=== PATIENT | male | born 1940 | race Caucasian/White ===

== ENCOUNTER → 2022-02-04 13:48 | Outpatient (BNVA) | payer MEDICARE, OTHER, SELFPAY | PROVIDERS: PCP Internal Medicine; Visit Provider Orthopaedic Surgery | DX: M72.0 Palmar fascial fibromatosis [Dupuytren] (principal) | CPT/HCPCS: 99202 ==

== ENCOUNTER 2023-07-27 15:43 | Outpatient (REF) | payer MEDICARE, OTHER, SELFPAY ==
--- NOTE | ~2023-07-27 | XR_ITS ---
EXAMINATION: XR CHEST CLINICAL INFORMATION: Tachycardia. COMPARISON: None available. TECHNIQUE: 2 views of the chest were obtained. FINDINGS: There is no gross pneumothorax. Lung volumes are low. Heart size is normal. Degenerative changes in the thoracic spine. No pleural effusion. Mild bibasilar streaky opacities, left greater than right, possibly representing atelectasis/scar versus pneumonia. Possible 2.58 cm right apical pulmonary nodule. CT scan of the chest recommended for further evaluation. XR/XR chest 2V IMPRESSION: 1. Mild bibasilar streaky opacities, left greater than right, possibly representing atelectasis/scar versus pneumonia. 2. Possible 2.5 cm right apical pulmonary nodule. CT scan of the chest recommended for further evaluation. This study was presented today July 2023 at 10:10 AM for interpretation. PSA staff will provide results to referring provider at this time.
[2023-07-27 15:55] LABS: MANUAL DIFF FLAG NO
[2023-07-27 16:20] LABS: Basophils Percent Auto 0.1 % (0-2); Eosinophils Absolute Auto 0.1 X10*3/uL (0.0-0.4); Eosinophils Percent Auto 0.8 % (0-4); Hematocrit 49.2 % (42.0-52.0); Hemoglobin 16.7 g/dl (14.0-18.0); Imm Gran Pct Auto 0.7 % (0.0-0.4); Lymphocytes Absolute Auto 1.9 X10*3/uL (1.2-4.9); Lymphocytes Percent Auto 14.2 % (20-40); Mean Corpuscular HGB Conc 33.9 g/dl (31.0-36.0); Mean Corpuscular Hemoglobin 30.8 pg (27.0-33.0); Mean Corpuscular Volume 90.6 fL (80.0-98.0); Mean Platelet Volume 8.6 fL (9.4-12.4); Monocytes Percent Auto 7.3 % (2-11); Neutrophils Absolute Auto 10.3 x10*3/uL (2.0-8.3); Neutrophils Percent Auto 76.9 % (45-73); Platelet Count 199 X10*3/uL (160-400); Red Blood Count 5.43 X10*6/uL (4.60-5.80); Red Cell Distribution Width 12.9 % (11.0-16.0); White Blood Count 13.4 X10*3/uL (4.8-10.8)
[2023-07-27 16:38] LABS: B Type Natriuretic Peptide 29 pg/mL (<100)
[2023-07-27 16:57] LABS: Alanine Aminotransferase 8 U/L (0-40); Albumin Level 4.4 g/dL (3.5-5.0); Alkaline Phosphatase 71 U/L (39-117); Anion Gap 15 (12-20); Aspartate Amino Transferase 22 U/L (5-37); Bilirubin Total 0.4 mg/dL (0.0-1.0); Blood Urea Nitrogen 15 mg/dL (9-16); C Reactive Protein 1.54 mg/dL (< or = 0.50); Calcium 10.4 mg/dL (8.4-10.2); Carbon Dioxide 27 mmol/L (22-29); Chloride 104 mmol/L (96-108); Estimated Glomerular Filt Rate 55; Glucose Random 112 mg/dL (60-115); Potassium 4.3 mmol/L (3.3-5.1); Sodium 142 mmol/L (135-145); Total Protein 7.6 g/dL (6.5-8.0)
[2023-07-27 17:11] LABS: Free T4 (Free Thyroxine) 1.05 ng/dL (0.71-1.85); Thyroid Stimulating Hormone 1.08 uIU/mL (0.32-4.0)
[2023-07-27 17:45] LABS: Prostate Specific Antigen 105.51 ng/mL (<0.05-4.0)
== END 2023-07-27 15:44 | disposition home or self-care (01) ==
LOC: HO.LAB 15:43
PROVIDERS: PCP Internal Medicine; Visit Provider Internal Medicine
DX: I10 Essential (primary) hypertension (principal); N40.0 Benign prostatic hyperplasia without lower urinary tract symptoms; R00.0 Tachycardia, unspecified; Z12.5 Encounter for screening for malignant neoplasm of prostate
CPT/HCPCS: 36415; 71046; 80053; 82378; 83880; 84153; 84439; 84443; 85025; 86140

== ENCOUNTER 2023-08-04 13:59 | Outpatient (AMB) | payer MEDICARE, OTHER, SELFPAY ==
--- NOTE | 2023-08-04 14:01 | MHC.OFFVIS ---
Intake Intake Visit Reasons: Elevated PSA Intake Note: New Patient presents for initial visit for elevated psa (psa ) Urology Medications: none Blood Thinner: none Resistor Coater Required: No Accompanied by: Self / Same As Patient Allergies amoxicillin Allergy (Verified 08/04/23 14:38) tongue swelling, facial swelling Medication List - Last Reconciled 08/04/23 by BRIDGET SchraderP- bicalutamide 50 mg PO DAILY 30 days levofloxacin 500 mg PO daily 3 days HPI HPI Comments History of Present Illness Details Harshad is a very pleasant 83-year-old male patient of Dr. Ly. He presents to the office today as a new patient for an elevated PSA. In review of patient's chart it appears PSA 08/18 106.0. He reports not having followed-up with his PCP over the last few years during [facility]. He also discusses having taking care of his with since now passed in September who had dementia. In discussion with the patient today he reports noting dysuria and difficulty with bowel movements. He otherwise denies urinary urgency, urinary frequency, incontinence, nocturia, hematuria, foul smelling urine,changes to urinary stream, flank pain, fever, and or chills. He is happy with his current voiding parameters. Discussed at length potential causes for elevated PSA. Discussed undergoing prostate biopsy as well as bone scan for further assessment evaluation. Discussed risks and benefits of these interventions. Patient reports having started bicalutamide on Wednesday with his PCP. In office urinalysis results reviewed with the patient today. EZEKIEL offered however patient reports having had EZEKIEL with PCP at which time EZEKIEL was noted to be abnormal. He otherwise offers no issues or concerns at this time. 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 Review of Systems Const All systems reviewed & are unremarkable except as noted in HPI and below Physical Exam Const General: cooperative, healthy appearing, comfortable, no acute distress, well developed, alert and awake Nutritional Appearance: average body habitus Orientation/consciousness: patient oriented x3 Limitations: no limitations HEENT Head: Yes normal to inspection, Yes normocephalic and Yes atraumatic Ears: hearing grossly normal bilaterally Eyes General: appearance normal, both eyes and all related structures Neck Neck: Yes normal visual inspection and Yes trachea midline Chest Chest palpation & inspection: normal inspection of the chest Resp Effort & Inspection: normal respiratory effort and able to speak in complete sentences Cardio Rate: regular rate GI Inspection: Yes normal to inspection General: Yes no CVA tenderness Back/Spine/Pelvis Back: no CVA tenderness Skin General skin exam: no rashes or lesions noted Neuro General: patient oriented x3 Extrem General: Yes normal to inspection Psych Appearance: grossly normal and well kempt Mental Status: mental status grossly normal Speech and movement: Normal speech and movement present and Clear speech present Affect: normal affect Attitude: cooperative Thought process: Normal thought process present Thought content: Normal thought content present Insight: Fair insight present (Psych) Judgement: Fair judgement present (Psych) Results AMB Urinalysis, Automated UA Leukoctes 0 Tracey/uL Last Edit by [employer] on 08/04/23 14:23 UA Nitrite Negative Last Edit by [employer] on 08/04/23 14:23 UA Urobilinogen 0.2 mg/dL Last Edit by [employer] on 08/04/23 14:23 UA Protein 15 mg/dL Last Edit by [employer] on 08/04/23 14:23 UA pH 5.5 Last Edit by [employer] on 08/04/23 14:23 UA Blood 10 Avelino/uL Last Edit by [employer] on 08/04/23 14:23 UA Specific Keene 1.020 Last Edit by [employer] on 08/04/23 14:23 UA Ketone Negative Last Edit by [employer] on 08/04/23 14:23 UA Bilirubin 0 mg/dL Last Edit by [employer] on 08/04/23 14:23 UA Glucose 0 mg/dL Last Edit by [employer] on 08/04/23 14:23 Results Reviewed Results Reviewed: Laboratory Last Values Urine pH (Auto) 5.5 08/04/23 14:03 Specific Keene (Auto) 1.020 08/04/23 14:03 Urine Protein (Auto) 15 mg/dL 08/04/23 14:03 Glucose (UA)(Auto) 0 mg/dL 08/04/23 14:03 Urine Ketones (Auto) Negative 08/04/23 14:03 Urine Blood (Auto) 10 Avelino/uL 08/04/23 14:03 Urine Nitrite (Auto) Negative 08/04/23 14:03 Urine Bilirubin (Auto) 0 mg/dL 08/04/23 14:03 Urine Urobilinogen (Auto) 0.2 mg/dL 08/04/23 14:03 Leukocyte Esterase (Auto) 0 Tracey/uL 08/04/23 14:03 Assessment & Plan Assessment & Plan (1) Elevated PSA: Code(s): R97.20 - Elevated prostate specific antigen [PSA] (2) Abnormal digital rectal exam: Code(s): R68.89 - Other general symptoms and signs Plan In office urinalysis results reviewed with the patient today; as noted above. Recent PSA results reviewed with the patient today; as noted above. Discussed at length potential causes for elevated PSA. Discussed obtaining bone scan for further assessment evaluation. Discussed risks and benefits of prostate biopsy at length. Will schedule for prostate biopsy as discussed. Continue bicalutamide as prescribed Prescription provided for antibiotic; educated on specific instructions of medication of taking antibiotics day before, day of, and day after surgical procedure (prostate biopsy) Call to patient's daughter Lori at [phone] as requested by patient will await call back to discuss plan of care Follow-up status post Dr. Mi's orders; or sooner with any issues, concerns, and or questions. Orders: Orders AMB Urinalysis Automated Today Z13.9 - Encounter for screening, unspecified NM bone scan whole body Today C61 - Malignant neoplasm of prostate, C79.51 - Secondary malignant neoplasm of bone Medications: New levofloxacin take 1 tablet day before procedure, 1 tablet day of procedure and 1 tablet day after procedure 500 mg PO daily 3 days 3 tabs 0RF Patient Instructions: The patient had an opportunity to ask questions regarding the treatment plan. All questions were answered. Physical exam, labs, and imaging were discussed and reviewed in detail. As well as risks, benefits, and discussion of treatment choices. No major barriers to understanding were identified. The patient expressed understanding and agreement with the above treatment plan. The patient was made aware they should contact our office by phone for worsening of their current condition, the appearance of new symptoms, or with any questions or concerns. Compliance is encouraged with any medications and follow up testing that is ordered. It is a privilege to be allowed the opportunity to participate in? your urological care.? Again, if you have any questions or concerns If you have any questions or concerns please do not hesitate to contact me. The office is [phone]. This note is constructed using voice recognition software. While every effort has been made to ensure accuracy medical transcription errors may have been included. Yours sincerely, CHRIS Schrader Coding Level of Care Code New Pt Level 4 (77105) Diagnoses Elevated PSA R97.20 Abnormal digital rectal exam R68.89
== END 2023-08-04 14:40 | disposition home or self-care (01) ==
PROVIDERS: PCP Internal Medicine; Visit Provider Nurse Practitioner Family
DX: R97.20 Elevated prostate specific antigen [PSA] (principal); R68.89 Other general symptoms and signs
CPT/HCPCS: 99204

== ENCOUNTER → 2023-08-04 13:59 | Outpatient (BNVA) | payer MEDICARE, OTHER, SELFPAY | PROVIDERS: PCP Internal Medicine; Visit Provider Nurse Practitioner Family | DX: R97.20 Elevated prostate specific antigen [PSA] (principal); R68.89 Other general symptoms and signs | CPT/HCPCS: 81003; 99202 ==

== ENCOUNTER 2023-08-12 07:29 | Outpatient (REF) | payer MEDICARE, OTHER, SELFPAY ==
[2023-08-12 08:02] VITALS: BMI 24.3
[2023-08-12 08:04] VITALS: BP 165/109; PULSE 108; RESP 16; TEMP 36.4; O2SAT 95
--- NOTE | 2023-08-12 08:27 | W.PM.OPN ---
Operative Note Operative Note Date of Service: 08/12/23 Narrative: Preoperative diagnosis: Elevated PSA Postoperative diagnosis: Elevated PSA PSA 100 Procedure: 1. transrectal ultrasound measurement of prostate Surgeon: Dr. Carlos Mi Anesthetic: Local Indications for procedure: Elevated PSA Procedure: After informed consent was verified, the patient was brought into the procedure area and lay left-hand side down on the table. Patient identity confirmed. Perioperative antibiotics confirmed. Safety pause time out performed. EZEKIEL performed to dilate rectal sphincter Iodine 10cc with Gel was placed per rectum Ultrasound probe was placed per rectum Unable to tolerate US probe Plan for repeat biopsy in OR with sedation
[2023-08-12 08:40] VITALS: BP 190/110; PULSE 102; RESP 16; O2SAT 97
== END 2023-08-12 07:30 | disposition home or self-care (01) ==
LOC: HO.MS 07:29
PROVIDERS: PCP Internal Medicine; Visit Provider Urology
DX: K64.9 Unspecified hemorrhoids (principal)
CPT/HCPCS: 99202

== ENCOUNTER → 2023-08-12 07:29 | Outpatient (BNV) | payer MEDICARE, OTHER, SELFPAY | PROVIDERS: PCP Internal Medicine; Visit Provider Urology | DX: R97.20 Elevated prostate specific antigen [PSA] (principal) | CPT/HCPCS: 76942 ==

== ENCOUNTER 2023-08-12 15:25 | Outpatient (AMB) | payer MEDICARE, OTHER, SELFPAY ==
--- NOTE | 2023-08-12 15:28 | MHC.OFFVIS ---
Intake Vital Signs 08/12/23 15:35 Height 5 ft 8 in Weight 156 lb BMI 23.7 BP 198/100 H Blood Pressure Location Rt brachial Position Sitting Pulse 78 Intake Visit Reasons: Thrombosed hemorrhoid Intake Note: Patient here today as an urgent appointment due to thrombosed hemorrhoid. Patient c/o difficulty with bm. Hemorrhoid present since early June. Sports Medicine Trainer Required: No Accompanied by: Daughter Lori Clark amoxicillin Allergy (Verified 08/12/23 15:29) tongue swelling, facial swelling Medication List - Last Reconciled 08/12/23 by Kashif Torrez MD bicalutamide 50 mg PO DAILY 30 days levofloxacin 500 mg PO daily 3 days HPI Thrombosed hemorrhoid HPI Details 83-year-old male referred by his primary care physician for question of thrombosed hemorrhoids. He says that about a month ago, he had pain in his anus what he thought was ?swelling?. He assumed that this was from his hemorrhoids. He describes some occasional problems with straining with bowel movements He denies any bleeding. He was scheduled to have a prostate biopsy today. However, he was unable to tolerate this. He is scheduled to have biopsy under anesthesia in 2 weeks. He was told that he also had hemorrhoids that appeared swollen so was referred to me He is able to sit down comfortably. He currently denies significant pain. He has never had any colonoscopy in the past. According to his daughter, he has refused this and he actually did not see any primary care physician regularly in the past. 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 Review of Systems Const Denies chills and Denies fever(s) Card Denies chest pain, Denies dyspnea and Denies dyspnea on exertion Resp Denies cough, Denies dyspnea and Denies dyspnea on exertion GI Denies hematochezia, Denies change in bowel habits and Reports constipation Denies hematuria and Denies difficulty urinating Musc Denies back pain and Denies limited range of motion Neuro Denies focal weakness and Denies convulsions Psych Denies depression and Denies mood swings Physical Exam Vital Signs: Last Vital Signs Pulse 78 08/12/23 15:35 BP 198/100 H 08/12/23 15:35 BMI result Body Mass Index 23.7 Const General: comfortable and no acute distress Orientation/consciousness: patient oriented x3 Neck Neck: Yes no lymphadenopathy Resp Auscultation: clear to auscultation bilaterally Cardio Rhythm: regular rhythm GI Other: Rectal exam shows small external hemorrhoids left and right, nonthrombosed, minimally swollen, nontender; did not want any anoscopy and digital exam at this time Palpation (GI): Soft to palpation, nontender and no guarding Neuro General: patient oriented x3 Assessment & Plan Assessment & Plan (1) Hemorrhoids: Code(s): K64.9 - Unspecified hemorrhoids Plan: He describes having a flare up of hemorrhoidal swelling a month ago. He also had an attempted prostate biopsy today which he could not tolerate. He was referred to me because of his hemorrhoids. He also noticed some blood on wiping this morning after he attempted prostate biopsy Current exam does reveal mild inflammation of his hemorrhoids. I did not do an anoscopy as he did not want this done. He is able to sit down comfortably and appears to not have any significant pain. I am going to send him a prescription for Metamucil. I told him and his daughter that if he has significant issues down the line with this hemorrhoids, I would him to follow-up so I can do an anoscopy then. He seemed to be comfortable with the plan. He is okay to proceed with his prostate biopsy in 2 weeks. Medications: New psyllium husk (Metamucil) mix into at least 8 oz of water or juice before administering 1 tbsp PO DAILY 660 grams 2RF Coding Level of Care Code New Pt Level 3 (34836) Diagnoses Hemorrhoids K64.9
[2023-08-12 15:35] VITALS: BP 198/100; PULSE 78; BMI 23.7
== END 2023-08-12 15:49 | disposition home or self-care (01) ==
PROVIDERS: PCP Internal Medicine; Visit Provider Surgery
DX: K64.9 Unspecified hemorrhoids (principal)
CPT/HCPCS: 99203

== ENCOUNTER → 2023-08-19 10:43 | Outpatient (REF) | payer MEDICARE, OTHER, SELFPAY ==
--- NOTE | ~2023-08-19 | CT_ITS ---
EXAMINATION: CT CHEST WITHOUT CONTRAST CLINICAL INFORMATION: 83-year-old male with pulmonary nodule and history of prostate carcinoma COMPARISON: Chest radiograph from 07/27/2023 TECHNIQUE: Multidetector volumetric CT imaging of the chest was done. Axial MIP volume rendering provided. Sagittal and coronal reformatted images were obtained. This CT examination was performed using dose optimization techniques as appropriate, variously including the following: *Automated exposure control *Adjustment of mA and/or kV according to patient size (this includes techniques or standardized protocols for targeted exams where dose is matched to indication/reason for exam; i.e. extremities or head) *Use of iterative reconstruction technique DLP: 08/13/1989 mGy-cm FINDINGS: MED AIDE: Unremarkable LUNGS: The lungs are clear with no evidence of inflammation or nodules. Basilar atelectasis present. MEDIASTINUM: There is no mediastinal or hilar lymphadenopathy seen. Thyroid gland is unremarkable. Thoracic aorta is ectatic but not aneurysmally dilated. There is no cardiomegaly. No pericardial effusion seen. CORONARY ARTERY CALCIFICATION: None visualized on this study. PLEURA: There is no pleural effusion. No pleural mass or thickening. AXILLA: No lymphadenopathy. UPPER ABDOMEN: There is moderate size hiatal hernia. There is tiny low-attenuation lesion in the left lobe of the liver, too small to characterize but most likely cyst OSSEOUS STRUCTURES: There are no lytic or blastic lesions seen. Mild degenerative changes seen in the lower cervical spine and thoracic spine. CT/CT chest wo IV con IMPRESSION: 1. No lung nodules seen. 2. Moderate size hiatal hernia. 3. Tiny low-attenuation lesion in the left lobe of the liver, too small to characterize but most likely cyst. Fleischner guidelines were followed.
--- NOTE | ~2023-08-19 | NM_ITS ---
EXAMINATION: NM BONE SCAN OF THE WHOLE BODY CLINICAL INFORMATION: A 83-year-old male with pulmonary nodule and history of prostate carcinoma. COMPARISON: CT of the chest done on 08/19/2023. TECHNIQUE: Multiple gamma scintillation camera images of the whole body were performed 2.5 hours following the intravenous administration of 26 mCi Tc-99m MDP. The radiotracer was injected through left antecubital superficial vein without complications. FINDINGS: In the head, no suspicious focal lesion. In the thoracic cage and upper extremities, heterogeneous increased tracer avidity is noted within bilateral ribs, highly suspicious for metastatic disease. Asymmetric increased tracer avidity involving the left second distal metacarpal likely represent posttraumatic and/or arthritic changes. Asymmetric focal increased tracer avidity is noted at mid to proximal diaphysis of the right humerus. In the spine, heterogeneous tracer distribution is noted throughout the entire spine including the costotransverse junctions without any discrete focal tracer avid disease. The findings are suspicious for disease involvement especially given the findings within the ribs. In the pelvis, heterogeneous tracer avidity around both SI joints and left hemisacrum and both ischium, also suspicious for disease involvement. In the lower extremities, focal increased tracer avidity at left and to a lesser extent right femoral diaphysis highly suspicious for metastatic involvement. No other definite bony abnormalities are noted. The urinary bladder and faint visualization of both kidneys are noted. Specific note is made of prominent distal left ureter, suspicious for obstruction or physiologic variation. NM/NM bone scan whole body IMPRESSION: Abnormal study showing features highly suspicious for osseous metastasis. However, there is no definite correlate identified when compared to the recent CT of the chest done on 08/19/2023. The patient is at risk for development of pathological fracture involving both femur and right humerus.
== END ==
LOC: HO.NUCMED 10:43
PROVIDERS: PCP Internal Medicine; Visit Provider Nurse Practitioner Family
DX: C61 Malignant neoplasm of prostate (principal); C79.51 Secondary malignant neoplasm of bone; R91.8 Other nonspecific abnormal finding of lung field
CPT/HCPCS: 71250; 78306; A9503

== ENCOUNTER 2023-08-23 09:47 | Day surgery (SDC) | payer MEDICARE, OTHER, SELFPAY ==
[2023-08-19 13:38] VITALS: BMI 23.7
--- NOTE | 2023-08-20 12:19 | P.CONAN_ITS ---
Documented by User: Sunita Ray NP 08/20/23 12:21 HPI - Anesthesia Eval Consult details Narrative: 83yo M for Prostate Needle Biopsy PMFSH Active Problems Active Problems: All Active Problems (Updated 08/12/23 @ 15:58 by Kashif Torrez MD) Abnormal digital rectal exam (Acute) Dupuytren's contracture of right hand (Acute) Dupuytren's contracture of left hand (Acute) Hemorrhoids (Acute) Elevated PSA (Acute) Past Medical History Medical History (Updated 08/12/23 @ 15:58 by Kashif Torrez MD) Hemorrhoids Elevated PSA Surgical History Surgical History (Updated 08/19/23 @ 12:27 by Kaylee Adkins RN) Hx of prostate biopsy Social History Social History Are you a primary daycare provider to a significant other at home: No Do you presently have visiting nurse or other home services: No Patient Tobacco Use Status: Never used Tobacco Use of substances other than those prescribed or required for medical reasons: No Have you been hit, kicked, punched, or otherwise hurt by someone within the past year? 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 Meds Allergies Allergy/AdvReac Type Severity Reaction Status Date / Time amoxicillin [From Augmentin] Allergy Severe tongue/facial Verified 08/19/23 13:42 swelling clavulanic acid Allergy Severe tongue/facial Verified 08/19/23 13:42 [From Augmentin] swelling Exam Height,Weight and Vital Signs: Height 5 ft 8 in Weight 70.76 kg Pertinent Lab Results Pertinent Lab Results: Laboratory Tests 07/27/23 15:54 WBC 13.4 H Hgb 16.7 Hct 49.2 Plt Count 199 Sodium 142 Potassium 4.3 Chloride 104 Carbon Dioxide 27 BUN 15 Creatinine 1.25 Assessment and Plan Assessment Anesthesia Assessment: Chart Reviewed Documented by User: Denver Funes MD 08/23/23 12:40 [facility] Past Medical History Medical History (Updated 08/12/23 @ 15:58 by Kashif Torrez MD) Hemorrhoids Elevated PSA Family History Family history of problems with anesthesia: No Surgical History Surgical History (Updated 08/19/23 @ 12:27 by Kaylee Adkins RN) Hx of prostate biopsy History of Problems with Anesthesia: No Social History Social History Are you a primary daycare provider to a significant other at home: No Do you presently have visiting nurse or other home services: No Patient Tobacco Use Status: Never used Tobacco Use of substances other than those prescribed or required for medical reasons: No Have you been hit, kicked, punched, or otherwise hurt by someone within the past year? 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 Meds Allergies Allergy/AdvReac Type Severity Reaction Status Date / Time amoxicillin [From Augmentin] Allergy Severe tongue/facial Verified 08/19/23 13:42 swelling clavulanic acid Allergy Severe tongue/facial Verified 08/19/23 13:42 [From Augmentin] swelling Exam Airway Mallampati Class: II TM Dist: >3cm Neck ROM: Full Loose/Missing/Broken Teeth: No Heart: ok Lungs: ok Assessment and Plan Assessment Anesthesia Assessment: Anesthesia Plan Discussed Final Anesthetic Review Family History of Problems with Anesthesia: No History of Problems with Anesthesia: No NPO: Yes ASA Class: III Final Preanesthetic Review: No Changes in Pt Med Stat, Meds/Allgs Chart Reviewed, Consent Obtained/Reviewed and Anes Risks/Benef Reviewed Patient Risk: Intermediate Procedure Risk: Low Anesthetic Plan Anesthetic Plan: MAC: and Agree w/ Assess. and Plan Disposition: Standard PACU
[2023-08-23] VITALS (7 sets, daily range): BP systolic 135–197; BP diastolic 82–112; PULSE 93–118; RESP 16–18; TEMP 36.7–37.1; O2SAT 93–96; BMI 23.7
[2023-08-23] MEDS: Lactated Ringers 1,000 ML 100 ML IVCONT (11:33)
--- NOTE | 2023-08-23 11:59 | MHC.SHP ---
Pre-Procedural Eval Section A - 24 Hr Update-Section A only Date of Service: 08/23/23 The patient is an INPATIENT: No Changes since office visit: No Cold of Flu in the past 2 weeks, No New Medical Problems, No Changes in Medication and No Patient answered all questions The patient has been examined within 24 hours of the surgical procedure. The History & Physical has been completed within 30 days and I have reviewed it.: Yes Section B - Complete if H&P > 30 days Chief Complaint: Elevated prostate specific antigen [PSA] Details of Present Illness: Prostate biopsy Allergies: Allergies Allergy/AdvReac Type Severity Reaction Status Date / Time amoxicillin [From Augmentin] Allergy Severe tongue/facial Verified 08/19/23 13:42 swelling clavulanic acid Allergy Severe tongue/facial Verified 08/19/23 13:42 [From Augmentin] swelling Plan Diagnosis/Plan: Unchanged (Prostate biopsy under sedation) I have reviewed the history and physical and performed a pertinent physical examination on my patient. No changes have occurred unless specified. Time Spent With Patient Time: Total time managing care of this patient today ____ minutes.
[2023-08-23] MEDS: ondansetron HCL 4 MG/2 ML VIAL IVPUSH (13:33)
[2023-08-23] MEDS: Ketorolac Tromethamine 30 MG/ML VIAL IVPUSH (14:02)
--- NOTE | 2023-09-17 16:56 | W.PM.OPN ---
Operative Note Operative Note Date of Service: 08/23/23 Narrative: Preoperative diagnosis: Elevated PSA Postoperative diagnosis: Elevated PSA 105 Procedure: 1. transrectal ultrasound measurement of prostate 2. transrectal ultrasound-guided pudendal nerve block 3. transrectal ultrasound-guided prostate biopsy 12 core Surgeon: Dr. Carlos Mi Anesthetic: Local Indications for procedure: Elevated PSA 105 - hard prostate Procedure: After informed consent was verified, the patient was brought into the operating room. Sedation anesthesia was performed. Patient identity confirmed. Perioperative antibiotics confirmed. Safety pause time out performed. Patient placed in left lateral down position. EZEKIEL performed to dilate rectal sphincter - prostate felt and was rock hard throughout Iodine 10cc with Gel was placed per rectum Ultrasound probe was placed per rectum The prostate was measured in 3 dimensions Total volume equals 50 gm No cystic structures were noted No calcifications were noted at the surgical margin The prostate was otherwise homogeneous in nature - of note anterior rectal wall was thickened suggesting T3 localized expansion of prostate cancer An ultrasound-guided pudendal nerve block was performed using 10 cc of 1% lidocaine. 8 cc was placed at the base and 2 cc of the apex. A 12 core biopsy was performed with 6 cores each side. Two cores were taken at the apex, mid and base. Cores were spaced between lateral and medial. Printed instructions regarding antibiotic use and common side effects such as low-grade temperature, potential infection and bleeding were given Pathology: 12 core prostate biopsy.
== END 2023-08-23 14:51 | disposition home or self-care (01) ==
PROVIDERS: PCP Internal Medicine; Visit Provider Urology
PROC: (CPT 55700; principal; 2023-08-23 12:00)
DX: C61 Malignant neoplasm of prostate (principal); R97.20 Elevated prostate specific antigen [PSA]; Z88.1 Allergy status to other antibiotic agents; Z79.899 Other long term (current) drug therapy
CPT/HCPCS: 55700; 76942; 88305; 88341; 88342; J1885; J1956; J2405; J2704; J3010

== ENCOUNTER → 2023-08-23 09:47 | Outpatient (BNV) | payer MEDICARE, OTHER, SELFPAY | PROVIDERS: PCP Internal Medicine; Visit Provider Urology | DX: R97.20 Elevated prostate specific antigen [PSA] (principal) | CPT/HCPCS: 55700; 76942 ==

== ENCOUNTER 2023-09-01 09:22 | Outpatient (AMB) | payer MEDICARE, OTHER, SELFPAY ==
--- NOTE | 2023-09-01 09:23 | A.OFFVIS_ITS ---
Intake Intake Visit Reasons: Prostate biopsy results Intake Note: Patient presents today for a follow-up Meds- None Allergies to Antibiotic- Amoxicillin Blood Thinner- None Card Decorator Required: No Allergies amoxicillin [From Augmentin] Allergy (Severe, Verified 09/01/23 09:26) tongue/facial swelling clavulanic acid [From Augmentin] Allergy (Severe, Verified 09/01/23 09:26) tongue/facial swelling Medication List - Last Reconciled 09/01/23 by Carlos Mi MD abiraterone 1,000 mg (4 x 250 mg) PO DAILY 30 days bicalutamide 50 mg PO DAILY 30 days calcium citrate-vitamin D3 315 mg-6.25 mcg (250 unit) (Citracal + Vitamin D Maximum) 2 tabs PO BID 90 days levofloxacin 500 mg PO daily 3 days prednisone 5 mg PO BID 30 days psyllium husk (Metamucil) 1 tbsp PO DAILY sulfamethoxazole-trimethoprim 400-80 mg (Bactrim) 1 tab PO DAILY HPI HPI Comments History of Present Illness Details Harshad is a pleasant male. He is a patient of Dr. Ly. He is seen for the following urologic conditions - prostate cancer Telemedicine Evaluation 15 min Consultation DoximSumm[employer] Della Video attempted Discussed biopsy result with Harshad and his daughter Imaging confirms bony metastatic disease Initial therapy would involve combination GnRH, abiraterone, Xgeva Prostate cancer - 08/18 - high-grade, bony metastatic at diagnosis Initial PSA 08/18 - 106 Prostate TRUS biopsy volume 35 cc Histologic type: Adenocarcinoma, acinar type with focal neuroendocrine differentiation Maryanne score: 4+5=9 % of pattern 4: 80% % of pattern 5: 20% Number cores positive: 12 Total number of cores: 12 % of tissue involved: 85% of all tissue examined Periprostatic fat inv.: Not identified Seminal vesicle inv.: Not identified Perineural inv.: Present LVI: Suspicious Initial staging - 08/18 bone scan with changes through or spine, pelvis, bilateral hips consistent with metastatic disease Bone protection in metastatic prostate cancer setting (NCCN MS-75) The NCCN Guidelines Panel recommends screening and treatment for osteoporosis according to guidelines for the general population from the National Osteoporosis Foundation.666 A baseline bone mineral density study should be considered for the patients on ADT. The National Osteoporosis Foundation guidelines include: 1) calcium (1000?1200 mg daily from food and supplements) and vitamin D3 (400?1000 IU daily); and 2) additional treatment for males aged greater than or equal to 50 years with low bone mass (T-score between -1.0 and - 2.5, osteopenia) at the femoral neck, total hip, or lumbar spine by dual-energy x-ray absorptiometry (DEXA) scan and a 10-year probability of hip fracture greater than or equal to 3% A baseline DEXA scan before start of therapy and a follow-up DEXA scan after one year of therapy is recommended by the International Society for Clinical Densitometry to monitor response Denosumab (120mg) every 4 weeks (category 1, preferred) every 3 to 4 weeks is recommended for patients with CRPC and bone metastases to prevent or delay disease-associated SREs. SREs include pathologic fractures, spinal cord compression, operation, or EBRT to bone. The optimal duration of denosumab in patients with bone metastases remains unclear. Oral hygiene, baseline dental evaluation for high-risk individuals, and avoidance of invasive dental surgery during therapy are recommended to reduce the risk of ONJ. If invasive dental surgery is necessary, therapy should be deferred until the dentist confirms that the patient has healed completely from the dental procedure. Supplemental calcium and vitamin D are recommended to prevent hypocalcemia in patients receiving either denosumab or zoledronic acid. Hypocalcemia should be corrected before starting denosumab, and serum calcium mo nitoring is required for denosumab with repletion as needed. 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 Review of Systems Const All systems reviewed & are unremarkable except as noted in HPI and below Reports no additional complaints Resp Reports no additional complaints GI Reports no additional complaints Reports as per HPI Musc Reports no additional complaints Physical Exam Telemedicine evaluation Appropriate responses Regular breathing rate and rhythm HEENT Head: Yes normal to inspection Ears: hearing grossly normal bilaterally Eyes General: appearance normal, both eyes and all related structures Neck Neck: Yes normal visual inspection Chest Chest palpation & inspection: normal inspection of the chest Resp Effort & Inspection: normal respiratory effort and able to speak in complete sentences Assessment & Plan Assessment & Plan (1) Prostate cancer metastatic to bone: Code(s): C61 - Malignant neoplasm of prostate; C79.51 - Secondary malignant neoplasm of bone Plan DEXA scan Initiate GnRH, Xgeva, abiraterone Orders: Orders Prostate Specific Antigen 2 Months C61 - Malignant neoplasm of prostate, C79.51 - Secondary malignant neoplasm of bone Testosterone, Total 2 Months C61 - Malignant neoplasm of prostate, C79.51 - Secondary malignant neoplasm of bone XR DEXA axial skeleton Today C61 - Malignant neoplasm of prostate, C79.51 - Secondary malignant neoplasm of bone, M85.80 - Other specified disorders of bone density and structure, unspecified site Medications: New prednisone Take 1 tablet twice a day while on abiraterone 5 mg PO BID 60 tabs 5RF 30 days C61 - Malignant neoplasm of prostate, C79.51 - Secondary malignant neoplasm of bone calcium citrate-vitamin D3 315 mg-6.25 mcg (250 unit) (Citracal + Vitamin D Maximum) 2 tabs PO BID 360 tabs 3RF 90 days C61 - Malignant neoplasm of prostate, C79.51 - Secondary malignant neoplasm of bone abiraterone must be taken on empty stomach, at least 1 hr before or 2 hrs after a meal/food 1,000 mg (4 x 250 mg) PO DAILY 120 tabs 5RF 30 days C61 - Malignant neoplasm of prostate, C79.51 - Secondary malignant neoplasm of bone, R97.21 - Rising PSA following treatment for malignant neoplasm of prostate Patient Instructions: Imaging studies, laboratory and physical exam results were discussed and reviewed in detail. No major barriers to patient understanding were identified. An opportunity to ask questions regarding the treatment plan was provided. All questions were answered. The patient expressed understanding and agreement with the above treatment plan. The patient is aware they should contact our office by phone for worsening of their current condition or the appearance of new urologic symptoms. Compliance is encouraged with any medications and followup testing that is ordered. It is a privilege to participate in the urologic care of your patient. If you have any questions or concerns regarding treatment for the above conditions, or other urologic issues, please do not hesitate to contact me. The office telephon e contact is [phone]. This note is constructed using voice recognition software. While every effort has been made to ensure accuracy technology professional errors may have been included. Yours sincerely, Dr Carlos Mi MD, [facility] - Urology Providers of Expert, Compassionate Care for the Genitourinary System Telehealth Telehealth Location of provider rendering services: practice address Location of patient: address on file Patient Identification confirmed using: Name, : Yes Telehealth method: video Patient verbally consented to treatment: Yes Patient verbally consented to billing insurance company: Yes Patient informed of any privacy concerns related to visit: Yes Coding Level of Care Code Tele Est Pt Level 4 (22522) Diagnoses Prostate cancer metastatic to bone C61; C79.51
== END 2023-09-01 10:22 | disposition home or self-care (01) ==
LOC: HO.HUSH 09:22
PROVIDERS: PCP Internal Medicine; Visit Provider Urology
DX: C61 Malignant neoplasm of prostate (principal); C79.51 Secondary malignant neoplasm of bone
CPT/HCPCS: 99214

== ENCOUNTER → 2023-09-01 09:22 | Outpatient (BNVA) | payer MEDICARE, SELFPAY | PROVIDERS: PCP Internal Medicine; Visit Provider Urology ==

== ENCOUNTER → 2023-09-07 08:33 | Outpatient (BNV) | payer MEDICARE, OTHER, SELFPAY | PROVIDERS: PCP Internal Medicine; Visit Provider Internal Medicine Medical Oncology | DX: C61 Malignant neoplasm of prostate (principal); C79.51 Secondary malignant neoplasm of bone | CPT/HCPCS: 99204; 99213; 99214 ==

== ENCOUNTER 2023-09-07 09:38 | Outpatient (AMB) | payer MEDICARE, OTHER, SELFPAY ==
--- NOTE | 2023-09-07 09:41 | AM.OFFVISNUR ---
Intake Intake Visit Reasons: GnRH/Xgeva Allergies amoxicillin [From Augmentin] Allergy (Severe, Verified 09/07/23 08:58) tongue/facial swelling clavulanic acid [From Augmentin] Allergy (Severe, Verified 09/07/23 08:58) tongue/facial swelling Office Meds Xgeva 120 mg/1.7 mL (70 mg/mL) subcutaneous solution Performing Provider: Carlos Mi MD Performing Location: [facility] Administered by: Alexy Barrera LPN on 09/07/23 09:41 Dose Route Admin Location Dispensed Lot Number Expiration Date [facility] Equipment Scheduler 120 mg subcut left arm 1.7 mL [id number] 11/22/25 82761-432-56 [employer] Eligard (6 month) 45 mg (6 month) subcutaneous syringe Performing Provider: Carlos Mi MD Performing Location: [facility] Administered by: Alexy Barrera LPN on 09/07/23 09:41 Dose Route Admin Location Dispensed Lot Number Expiration Date [facility] Equipment Scheduler 45 mg subcut right arm 45 mg [id number] 08/26/24 19738-353-26 [employer]. Coding Assessment & Plan Assessment & Plan Orders: Orders AMB Denosumab Injection Practice Supplied Today C61 - Malignant neoplasm of prostate, C79.51 - Secondary malignant neoplasm of bone AMB Leuprolide Injection - Practice Supplied Today C61 - Malignant neoplasm of prostate, C79.51 - Secondary malignant neoplasm of bone
== END 2023-09-07 10:07 | disposition home or self-care (01) ==
PROVIDERS: PCP Internal Medicine; Visit Provider Urology
DX: C61 Malignant neoplasm of prostate (principal); C79.51 Secondary malignant neoplasm of bone

== ENCOUNTER → 2023-09-07 09:38 | Outpatient (BNVA) | payer MEDICARE, OTHER, SELFPAY | PROVIDERS: PCP Internal Medicine; Visit Provider Urology | DX: C61 Malignant neoplasm of prostate (principal); C79.51 Secondary malignant neoplasm of bone | CPT/HCPCS: 96372; 96402; J0897; J9217 ==

== ENCOUNTER 2023-09-08 10:18 | Outpatient (REF) | payer MEDICARE, OTHER, SELFPAY ==
--- NOTE | ~2023-09-08 | XR_ITS ---
EXAMINATION: XR FEMUR, BILATERAL CLINICAL INFORMATION: Nuclear medicine bone scan from 08/20/2023 COMPARISON: None available. TECHNIQUE: 4 views of each femur FINDINGS: RIGHT: No acute visible fracture or dislocation. No large lytic or blastic lesions are noted. Degenerative arthropathy of the right femoral acetabular joint. Multicompartment arthritic changes of the right knee. Joint space alignment are otherwise maintained. Soft tissues are unremarkable. Atherosclerotic calcification is are visualized. LEFT: No acute visible fracture or dislocation. No large lytic or blastic lesions are noted. Degenerative arthropathy of the left femoral acetabular joint. Multicompartment arthritic changes of the left knee. Joint space alignment are otherwise maintained. Soft tissues are unremarkable. Atherosclerotic calcifications are visualized. XR/XR femur RT 2V IMPRESSION: 1. No acute visible fracture or dislocation. 2. 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
--- NOTE | ~2023-09-08 | XR_ITS ---
EXAMINATION: XR HUMERUS, RIGHT CLINICAL INFORMATION: Bone metastasis COMPARISON: None available. TECHNIQUE: AP and lateral views of the right humerus. FINDINGS: No acute visible fracture or dislocation. Degenerative arthropathy of the right shoulder and elbow. Joint space alignment otherwise maintained. Soft tissues are unremarkable. XR/XR humerus RT IMPRESSION: 1. No acute visible fracture or dislocation. 2. Degenerative arthropathy of the right shoulder and elbow.
--- NOTE | ~2023-09-08 | XR_ITS ---
EXAMINATION: XR FEMUR, BILATERAL CLINICAL INFORMATION: Nuclear medicine bone scan from 08/20/2023 COMPARISON: None available. TECHNIQUE: 4 views of each femur FINDINGS: RIGHT: No acute visible fracture or dislocation. No large lytic or blastic lesions are noted. Degenerative arthropathy of the right femoral acetabular joint. Multicompartment arthritic changes of the right knee. Joint space alignment are otherwise maintained. Soft tissues are unremarkable. Atherosclerotic calcification is are visualized. LEFT: No acute visible fracture or dislocation. No large lytic or blastic lesions are noted. Degenerative arthropathy of the left femoral acetabular joint. Multicompartment arthritic changes of the left knee. Joint space alignment are otherwise maintained. Soft tissues are unremarkable. Atherosclerotic calcifications are visualized. XR/XR femur LT 2V IMPRESSION: 1. No acute visible fracture or dislocation. 2. 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
--- NOTE | ~2023-09-08 | CT_ITS ---
EXAMINATION: CT ABDOMEN AND PELVIS WITH CONTRAST CLINICAL INFORMATION: Prostate cancer with bone metastases COMPARISON: 09/08/2023 bilateral femurs 08/19/2023 bone scan, and chest CT TECHNIQUE: Multidetector volumetric images were obtained from the superior aspect of the liver through the pubic symphysis following administration 85 mL of Omnipaque 350 intravenous contrast. Sagittal and coronal reformatted images were obtained on the technologist's workstation. Oral contrast: No This CT examination was performed using dose optimization techniques as appropriate, variously including the following: *Automated exposure control *Adjustment of mA and/or kV according to patient size (this includes techniques or standardized protocols for targeted exams where dose is matched to indication/reason for exam; i.e. extremities or head) *Use of iterative reconstruction technique DLP: 313 mGy-cm FINDINGS: DAMAGE CUTTER: Lumbar lordotic straightening, multilevel degenerative type changes and mild dextroscoliosis. Phleboliths. Nonobstructive bowel pattern. LUNG BASES: Prominent cardiac silhouette. No pericardial effusion. Motion artifact limiting study of the lung parenchyma. Atelectasis. LIVER, GALLBLADDER, AND BILIARY TREE: Too small to characterize superior hepatic hypodensities, likely cyst. The liver is normal in size, shape, and attenuation. No focal hepatic lesion or biliary ductal dilatation is present. The gallbladder is unremarkable with no evidence of radiopaque gallstones, gallbladder wall thickening, or obvious pericholecystic inflammatory changes. PANCREAS: Unremarkable. SPLEEN: Unremarkable. ADRENAL GLANDS: Unremarkable. KIDNEYS AND URETERS: The kidneys are normal in size, shape, and attenuation. No hydronephrosis, hydroureter, or calculi seen. Too small to characterize left renal hypodensities. Indeterminate exophytic lower pole left renal hypodensity. Trace left perinephric stranding. BLADDER: Under distended with diffusely thickened mckinnon. GASTROINTESTINAL TRACT: Moderate hiatal hernia. Relatively decompressed mildly thick-walled stomach. Nonobstructive bowel pattern. Appendix not identified with certainty. Moderate fecal retention and diverticulosis. Retained fecal material in distended rectosigmoid. There is thickened, lobulated hyper attenuating soft tissue involving the anterior and bilateral rectal mckinnon with luminal narrowing distally. This is in intimate association with enlarged prostate. ABDOMINAL WALL: Bilateral fat filled inguinal hernias. LYMPH NODES: Multiple pelvic sidewall lymph nodes, for example on the left measuring 8 mm, 3:70, 1 cm on the left and 1.4 cm on the right, 3:69. VASCULAR: Unremarkable. PELVIC VISCERA: Heterogeneous prominent prostate. Prominent pelvic sidewall vessels, right greater than left. Mildly prominent seminal vesicles. OSSEOUS STRUCTURES: No suspicious osseous lesions. CT/CT abdomen pelvis w IV con IMPRESSION: In continuity with enlarged heterogeneous prostate and in intimate association with the anterior and lateral rectal mckinnon, hyperenhancing abnormal lobulated soft tissue density is demonstrated. It is unclear if this originates within the prostate with perirectal extension versus primary rectal pathology. Likely related bilateral pelvic sidewall lymph nodes with similar hyper attenuating appearance. PET/CT recommended. Colonoscopy may be indicated. Renal ultrasound recommended for indeterminate subcentimeter right lower pole exophytic renal lesion.
[2023-09-08] MEDS: iohexoL 350 MG/ML 100 ML INFUS..BTL IV (11:28)
== END 2023-09-08 10:19 | disposition home or self-care (01) ==
LOC: HO.CT 10:18
PROVIDERS: PCP Internal Medicine; Visit Provider Internal Medicine Medical Oncology
DX: C61 Malignant neoplasm of prostate (principal); C79.51 Secondary malignant neoplasm of bone
CPT/HCPCS: 73060; 73552; 74177; Q9967

== ENCOUNTER 2023-09-17 10:19 | Outpatient (AMB) | payer MEDICARE, OTHER, SELFPAY ==
[2023-09-17 10:23] VITALS: BMI 23.0
--- NOTE | 2023-09-17 10:23 | A.OFFVIS_ITS ---
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 He was referred to discuss prophylactic treatment for fractures. 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 He was recently diagnosed with metastatic CA (prostete) and a bone scan showed mets to spine, pelvis and long bone. He states he feels well and has no pain. He has started chemo. He states he initially thought he had a groin pull after lifting something heavy and was subsequently diagnosed with metastatic disease. he is here today with his daughter. he states he is active. He denies pain with ambulation or with any activity. The bone scan was most concerning for mets to bilateral femur and to right humerus. 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 Resp Other: No audible wheezing Effort & Inspection: normal respiratory effort and able to speak in complete sentences Cardio Other: Radial pulse palpable with no rythmic abnormalities Jugular venous distension: no JVD Back/Spine/Pelvis Cervical Spine: normal cervical lordosis Skin General skin exam: turgor normal Rashes: no rashes Neuro General: patient oriented x3 Extrem Other: On exam he has no thigh pain with palpation and no groin pain with ROM. He has full painless ROM of his shoulders and there is no ttp along the humeral shafts bilaterally. Psych Appearance: grossly normal Mental Status: mental status grossly normal Speech and movement: Normal speech and movement present Affect: normal affect Attitude: cooperative Results Reviewed Results Reviewed: I personally reviewed relevant radiographs. Bone scan: In the thoracic cage and upper extremities, heterogeneous increased tracer avidity is noted within bilateral ribs, highly suspicious for metastatic disease. Asymmetric increased tracer avidity involving the left second distal metacarpal likely represent posttraumatic and/or arthritic changes. Asymmetric focal increased tracer avidity is noted at mid to proximal diaphysis of the right humerus. In the spine, heterogeneous tracer distribution is noted throughout the entire spine including the costotransverse junctions without any discrete focal tracer avid disease. The findings are suspicious for disease involvement especially given the findings within the ribs. In the pelvis, heterogeneous tracer avidity around both SI joints and left hemisacrum and both ischium, also suspicious for disease involvement. In the lower extremities, focal increased tracer avidity at left and to a lesser extent right femoral diaphysis highly suspicious for metastatic involvement. No other definite bony abnormalities are noted. Xrays: Right humerus and bilateral femoral plain radiographs are unremarkable. Assessment & Plan Assessment & Plan (1) Prostate cancer metastatic to bone: Code(s): C61 - Malignant neoplasm of prostate; C79.51 - Secondary malignant neoplasm of bone Plan: Mr Salguero has no pain. I reviewed his plan films with him and his bone scan. Based on Mirels' Criteria his score is 5 ( at worst) and prophylactic long bone fixation is not required as pathological fracture risk is low. This is probably an over-estimation given that the lesions are not visible with plain radiography and he has no pain. I explained this to Mr. Salguero and his daughter. If he develops pain he should return to see me and I would like to see him back in 3 months for repeat radiographs. Plan Prepared for Abel Scruggs MD by Ned Frias, medical field representative, on 09/17/23 at 10:27 AM, EST. Coding Level of Care Code Tele New Pt Level 4 (39358) Diagnoses Prostate cancer metastatic to bone C61; C79.51
== END 2023-09-17 11:48 | disposition home or self-care (01) ==
PROVIDERS: PCP Internal Medicine; Visit Provider Orthopaedic Surgery
DX: C79.51 Secondary malignant neoplasm of bone (principal); C61 Malignant neoplasm of prostate
CPT/HCPCS: 99213

== ENCOUNTER → 2023-09-17 10:19 | Outpatient (BNVA) | payer MEDICARE, OTHER, SELFPAY | PROVIDERS: PCP Internal Medicine; Visit Provider Orthopaedic Surgery | DX: C61 Malignant neoplasm of prostate (principal); C79.51 Secondary malignant neoplasm of bone | CPT/HCPCS: 99212 ==

== ENCOUNTER 2023-09-21 12:53 | Outpatient (REF) | payer MEDICARE, OTHER, SELFPAY ==
--- NOTE | ~2023-09-21 | US_ITS ---
EXAMINATION: US RETROPERITONEAL LIMITED (RENAL ONLY) CLINICAL INFORMATION: CT scan revealed right renal abnormality. COMPARISON: CT scan 09/08/2023 TECHNIQUE: Real-time imaging of the kidneys. FINDINGS: RIGHT KIDNEY: 10.1 x 4.9 x 5.4 cm (SAG x AP x TRV). The kidney is normal in size, contour with increased cortical echogenicity. Renal cortical thickness is normal. No calculi.. No hydronephrosis. In the lower pole cortex, 0.4 x 0.4 x 0.4 cm simple cyst and 0.5 x 0.5 x 0.4 cm simple cysts are seen. No imaging follow-up is recommended. LEFT KIDNEY: 9.8 x 4.6 x 4.8 cm (SAG x AP x TRV). The kidney is normal in size, contour with mild increased cortical echogenicity. Renal cortical thickness is normal. No calculi. No hydronephrosis. 0.7 x 0.9 x 0.8 cm exophytic simple cyst extends off the lower pole and 0.7 x 0.9 x 0.8 cm simple lower pole cortical cyst are seen. No imaging follow-up is recommended. US/US renal BI IMPRESSION: Normal size kidneys with increased cortical echogenicity. Bilateral subcentimeter simple cysts which correspond to the findings seen on CT scan. No imaging follow-up is recommended
== END 2023-09-21 12:54 | disposition home or self-care (01) ==
LOC: HO.HMGCX 12:53
PROVIDERS: PCP Internal Medicine; Visit Provider Internal Medicine Medical Oncology
DX: N28.89 Other specified disorders of kidney and ureter (principal)
CPT/HCPCS: 76775

== ENCOUNTER 2023-09-22 14:16 | Outpatient (REF) | payer MEDICARE, OTHER, SELFPAY ==
--- NOTE | ~2023-09-22 | MM_ITS ---
EXAMINATION: BONE DENSITOMETRY CLINICAL INDICATION: Other specified disorders of bone density and structure, unspecified site. COMPARISON: This is the patient's baseline examination. TECHNIQUE: Using a [employer] DXA System (software version: 13.1) manufactured by [employer], dual-energy x-ray absorptiometry was performed of the lumbar spine and left hip. The images are of good technical quality. Summary results are attached. FINDINGS: LEFT FEMUR, NECK: BMD 1.026 g/cm2, Z-score 1.5, T-score -0.3, normal. LEFT FEMUR, TOTAL: BMD 1.002 g/cm2, Z-score 0.9, T-score -0.7, normal. AP SPINE L1-L4 (excluding L2): The data of L1-L4 has been changed to exclude the L2 vertebral body, because degenerative sclerosis at this level may cause overestimation of lumbar spine density. BMD 1.927 g/cm2, Z-score 7.0, T-score 6.0, normal. IDENTIFIED RISK FACTORS: Glucocorticoids (chronic), low calcium intake. HISTORY OF FRACTURE: None listed. MEDICATIONS: Calcium, vitamin D. MM/XR DEXA axial skeleton IMPRESSION: 1. DIAGNOSIS: Normal bone density based on the lowest T-score value of -0.7 in the total femur applying World Health Organization criteria. 2. 10-YEAR FRACTURE RISK PREDICTION, FRAX: According to the guidelines, FRAX calculation should only be performed on patients in the osteopenia bone density category. Therefore, FRAX was not performed on this patient. 3. Treatment Recommendations: NOF guidelines recommend consideration for treatment in postmenopausal women and men age 50 and older presenting with the following: -A hip or vertebral (clinical or morphometric) fracture. -T-score less than or equal to -2.5 at the femoral neck or spine after appropriate evaluation to exclude secondary causes. -Low bone mass at the hip or spine and a 10-year fracture probability by FRAX of greater than or equal to 3% for hip fracture or greater than or equal to 20% for major osteoporotic fracture based on the [place] adapted WHO algorithm. 4. Other Recommendations: All treatment decisions require clinical judgment and consideration of individual patient factors, including patient preferences, comorbidities, previous drug use, risk factors not captured in the FRAX model (e.g. frailty, falls, vitamin D deficiency, increased bone turnover, interval significant decline in bone density) and possible under or overestimation of fracture risk by FRAX. FUTURE SCAN RECOMMENDATION: People with diagnosed cases of osteoporosis or at high risk for fracture should have regular bone mineral density tests. For patients eligible for Medicare, routine testing is allowed once every 2 years. The testing frequency can be increased to one year for patients who have rapidly progressing disease, those who are receiving or discontinuing medical therapy to restore bone mass, or have additional risk factors.
== END 2023-09-22 14:17 | disposition home or self-care (01) ==
LOC: HO.MAMMO 14:16
PROVIDERS: PCP Internal Medicine; Visit Provider Urology
DX: Z13.820 Encounter for screening for osteoporosis (principal); M85.80 Other specified disorders of bone density and structure, unspecified site; C61 Malignant neoplasm of prostate; C79.51 Secondary malignant neoplasm of bone
CPT/HCPCS: 77080

== ENCOUNTER 2023-10-27 08:56 | Outpatient (AMB) | payer MEDICARE, OTHER, SELFPAY ==
--- NOTE | 2023-10-27 08:56 | A.OFFVIS_ITS ---
Intake Intake Visit Reasons: 8w/PSA(set) Intake Note: Patient presents today for a follow up on: PSA Meds- None Allergies to Antibiotic- Amoxicillin Blood Thinner- None Proof Technician Helper Required: No Allergies amoxicillin [From Augmentin] Allergy (Severe, Verified 10/27/23 08:58) tongue/facial swelling clavulanic acid [From Augmentin] Allergy (Severe, Verified 10/27/23 08:58) tongue/facial swelling Medication List - Last Reconciled 10/27/23 by Carlos Mi MD abiraterone 1,000 mg (4 x 250 mg) PO DAILY 30 days calcium citrate-vitamin D3 315 mg-6.25 mcg (250 unit) (Citracal + Vitamin D Maximum) 2 tabs PO BID 90 days cholecalciferol (vitamin D3) (Vitamin D3) 10 mcg PO DAILY prednisone 5 mg PO BID 30 days psyllium husk (Metamucil) 1 tbsp PO DAILY sennosides (Senokot) 8.6 mg PO BID PRN HPI HPI Comments History of Present Illness Details Harshad is a pleasant male. He is a patient of Dr. Ly. He is seen for the following urologic conditions - prostate cancer Telemedicine Evaluation 15 min Consultation Doxfreee Della Video attempted Current therapy involves combination GnRH, abiraterone, Xgeva PSA has fallen significantly Will add testosterone for next months oncology follow-up Plan repeat imaging and GnRH administration in February GnRH administration 09/18 Oncology administering Xgeva PSA - 09/18 24, 10/16 PSA 9.7 Prostate cancer - 08/18 - high-grade, bony metastatic at diagnosis Initial PSA 08/18 - 106 Prostate TRUS biopsy volume 35 cc Histologic type: Adenocarcinoma, acinar type with focal neuroendocrine differentiation Hannacroix score: 4+5=9 % of pattern 4: 80% % of pattern 5: 20% Number cores positive: 12 Total number of cores: 12 % of tissue involved: 85% of all tissue examined Periprostatic fat inv.: Not identified Seminal vesicle inv.: Not identified Perineural inv.: Present LVI: Suspicious Initial staging - 08/18 bone scan with changes through th oracic spine, pelvis, bilateral hips consistent with metastatic disease - 09/18 CT performed locally advanced pro state cancer - rectal - 09/18 DEXA scan normal bone density PFSH Medical History Hemorrhoids Elevated PSA Surgical History Hx of prostate biopsy Social History Household Members: None Are you a primary direct care professional to a significant other at home: No Do you presently have visiting nurse or other home services: No Patient Tobacco Use Status: Never used Tobacco service: Yes 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 Review of Systems Const All systems reviewed & are unremarkable except as noted in HPI and below Reports no additional complaints Resp Reports no additional complaints GI Reports no additional complaints Reports as per HPI Musc Reports no additional complaints Physical Exam Telemedicine evaluation Appropriate responses Regular breathing rate and rhythm HEENT Head: Yes normal to inspection Ears: hearing grossly normal bilaterally Eyes General: appearance normal, both eyes and all related structures Neck Neck: Yes normal visual inspection Chest Chest palpation & inspection: normal inspection of the chest Resp Effort & Inspection: normal respiratory effort and able to speak in complete sentences Assessment & Plan Assessment & Plan (1) Prostate cancer metastatic to bone: Code(s): C61 - Malignant neoplasm of prostate; C79.51 - Secondary malignant neoplasm of bone Plan Four month follow-up imaging Orders: Orders Testosterone, Total Today C61 - Malignant neoplasm of prostate, C79.51 - Secondary malignant neoplasm of bone NM bone scan whole body 4 Months C61 - Malignant neoplasm of prostate, C79.51 - Secondary malignant neoplasm of bone CT pelvis wo IV con 4 Months C61 - Malignant neoplasm of prostate, C79.51 - Secondary malignant neoplasm of bone Patient Instructions: Imaging studies, laboratory and physical exam results were discussed and reviewed in detail. No major barriers to patient understanding were identified. An opportunity to ask questions regarding the treatment plan was provided. All questions were answered. The patient expressed understanding and agreement with the above treatment plan. The patient is aware they should contact our office by phone for worsening of their current condition or the appearance of new urologic symptoms. Compliance is encouraged with any medications and followup testing that is ordered. It is a privilege to participate in the urologic care of your patient. If you have any questions or concerns regarding treatment for the above conditions, or other urologic issues, please do not hesitate to contact me. The office telephone contact is [phone]. This note is constructed using voice recognition software. While every effort has been made to ensure accuracy segmental wall installer errors may have been included. Yours sincerely, Dr Carlos Mi MD, [facility] - Urology Providers of Expert, Compassionate Care for the Genitourinary System Telehealth Telehealth Location of provider rendering services: practice address Location of patient: address on file Patient Identification confirmed using: Name, : Yes Telehealth method: video Patient verbally consented to treatment: Yes Patient verbally consented to billing insurance company: Yes Patient informed of any privacy concerns related to visit: Yes Coding Level of Care Code Tele Est Pt Level 4 (74517) Diagnoses Prostate cancer metastatic to bone C61; C79.51
== END 2023-10-27 11:30 | disposition home or self-care (01) ==
LOC: HO.HUSH 08:56
PROVIDERS: PCP Internal Medicine; Visit Provider Urology
DX: C61 Malignant neoplasm of prostate (principal); C79.51 Secondary malignant neoplasm of bone
CPT/HCPCS: 99214

== ENCOUNTER → 2023-10-27 08:56 | Outpatient (BNVA) | payer MEDICARE, OTHER, SELFPAY | PROVIDERS: PCP Internal Medicine; Visit Provider Urology ==

== ENCOUNTER 2023-11-01 11:54 | Emergency (ER) | payer MEDICARE, OTHER, SELFPAY ==
[2023-11-01] VITALS (8 sets, daily range): BP systolic 163–190; BP diastolic 89–120; PULSE 106–124; RESP 16; TEMP 36.6–36.7; O2SAT 96–100; BMI 23.9
--- NOTE | ~2023-11-01 | CT_ITS ---
EXAMINATION: CT ANGIOGRAM OF THE CHEST WITHOUT AND WITH CONTRAST CLINICAL INFORMATION: Syncope, hypertension COMPARISON: Noncontrast CT scan from 08/19/2023 TECHNIQUE: Multidetector volumetric CT imaging of the chest was performed before and after the administration of 85 mL of Omnipaque 350 intravenous contrast without immediate adverse reactions. 3D POSTPROCESSING: Multiple 3-D angiographic images were processed from the initial data set by the clinical technologist at the modality workstation under concurrent physician supervision. DOSE LOWERING TECHNIQUES: This CT examination was performed using dose optimization techniques as appropriate, variously including the following: - Automated exposure control - Adjustment of mA and/or kV according to patient size (this includes techniques or standardized protocols for targeted exams where dose is matched to indication/reason for exam; i.e. extremities or head) - Use of iterative reconstruction technique DLP: 345 mGy-cm. FINDINGS: VASCULAR: ASCENDING AORTA: Normal caliber and patent. No evidence of aneurysm or dissection. AORTIC ARCH: Normal caliber and patent. No evidence of aneurysm or dissection. Three-vessel arch anatomy. The great vessels are patent. Minimal atherosclerotic wall calcification seen in the left subclavian artery without significant stenosis DESCENDING AORTA: Normal caliber and patent. No evidence of aneurysm or dissection. ABDOMINAL AORTA: Visualized proximal abdominal aorta is normal in caliber. PULMONARY ARTERIES: Examination not tailored to evaluate pulmonary arteries however there is no evidence of acute pulmonary embolus NONVASCULAR: LUNGS: Minimal subpleural fibrotic changes in the lung bases. No acute pulmonary infiltrate. No suspicious pulmonary nodules MEDIASTINUM: Heart is normal in size. Pericardium appears normal. CORONARY ARTERY CALCIFICATION: Present PLEURA: There is no pleural effusion. No pleural mass or thickening. ABDOMINAL VISCERA: Moderate sized hiatal hernia extending into the chest OSSEOUS STRUCTURES: Unremarkable. CT/CT angio chest aorta IMPRESSION: Normal CTA of the chest. No evidence of aneurysm or dissection. Minimal atherosclerotic wall calcification seen in the left subclavian artery without significant stenosis. Moderate hiatal hernia
--- NOTE | ~2023-11-01 | CT_ITS ---
EXAMINATION: CT HEAD WITHOUT CONTRAST CLINICAL INFORMATION: Headache. Syncope. COMPARISON: MRI of the brain April 12, 2008 TECHNIQUE: Contiguous axial imaging was performed from the skull base to vertex without intravenous administration of contrast. Coronal and sagittal reformatted images are performed at the CT scanner. [This CT examination was performed using dose optimization techniques as appropriate, variously including the following: *Automated exposure control *Adjustment of mA and/or kV according to patient size (this includes techniques or standardized protocols for targeted exams where dose is matched to indication/reason for exam; i.e. extremities or head) *Use of iterative reconstruction technique] DLP: 678 mGy-cm. FINDINGS: There is no evidence of acute intracranial hemorrhage or territorial infarction. No abnormal mass-effect or midline shift is seen. Miranda to white matter differentiation is well preserved. No extra-axial fluid collections are identified. There is generalized global volume loss. There is moderate prominence of the ventricles and the sulci . There is mild hypodensity of the periventricular white matter due to chronic small vessel ischemic disease. There are vascular calcifications of the internal carotid arteries bilaterally. There is no osseous abnormality. The mastoid air cells and visualized portions of the paranasal sinuses are well-aerated. CT/CT head/brain wo IV con IMPRESSION: No acute intracranial pathology.
--- NOTE | ~2023-11-01 | CT_ITS ---
EXAMINATION: CT ABDOMEN AND PELVIS WITH CONTRAST CLINICAL INFORMATION: Constipation. Syncope. COMPARISON: 09/08/2023 TECHNIQUE: Multidetector volumetric images were obtained from the superior aspect of the liver through the pubic symphysis following administration 85 mL of Omnipaque 350 intravenous contrast. Sagittal and coronal reformatted images were obtained on the technologist's workstation. Oral contrast: No This CT examination was performed using dose optimization techniques as appropriate, variously including the following: *Automated exposure control *Adjustment of mA and/or kV according to patient size (this includes techniques or standardized protocols for targeted exams where dose is matched to indication/reason for exam; i.e. extremities or head) *Use of iterative reconstruction technique DLP: 466 mGy-cm FINDINGS: LUNG BASES: Please see separately dictated report. LIVER, GALLBLADDER, AND BILIARY TREE: The liver is normal in size and contour. No suspicious hepatic lesion or biliary ductal dilatation is present. The gallbladder is unremarkable with no evidence of radiopaque gallstones, gallbladder wall thickening, or obvious pericholecystic inflammatory changes. PANCREAS: No ductal dilatation. SPLEEN: Not enlarged. ADRENAL GLANDS: No adrenal mass. KIDNEYS AND URETERS: The kidneys enhance normally. No hydronephrosis or perinephric fluid collection. There is stable dilatation of the distal left ureter measuring up to 1.9 cm. BLADDER: Unremarkable. GASTROINTESTINAL TRACT: Moderate hiatal hernia. There is irregular soft tissue mass measuring 4.8 x 5.4 x 8.3 cm anterior and inferior to the rectum extending into the perineum with invasion of the prostate gland. Fecal impaction in the rectum. There is marked stool throughout the colon with evidence of underlying diverticular disease. No small bowel obstruction. The appendix is within normal limits. ABDOMINAL WALL: No significant hernia is appreciated. LYMPH NODES: Pelvic sidewall lymph nodes are unchanged. VASCULAR: Normal caliber abdominal aorta. PELVIC VISCERA: Mild enlargement of the prostate gland. OSSEOUS STRUCTURES: No destructive bone lesions. CT/CT abdomen pelvis w IV con IMPRESSION: Redemonstrated is a regular soft tissue mass in the perirectal/perianal region extending into the perineum measuring approximately 4.8 x 5.4 x 8.3 cm with possible invasion of the prostate gland. Enlarged pelvic sidewall lymph nodes. Constipation may be on the basis of mechanical obstruction.
--- NOTE | 2023-11-01 12:16 | ECG_ITS ---
Test Reason : MCQUAIC Blood Pressure : / mmHG Vent. Rate : 111 BPM Atrial Rate : 111 BPM P-R Int : 146 ms QRS Dur : 092 ms QT Int : 332 ms P-R-T Axes : 046 031 056 degrees QTc Int : 451 ms Sinus tachycardia Nonspecific T wave abnormality Abnormal ECG No previous ECGs available Referred By: Savanah Josue Electronically Signed By:Nikunj Tang
--- NOTE | 2023-11-01 12:18 | ED_ITS ---
HPI - Syncope General Chief Complaint: Syncope Stated Complaint: SYNCOPAL EPISODE WHILE DOING YARD WORK PER EMS Source: patient, family, EMS and old records reviewed Mode of arrival: EMS Limitations: no limitations History of Present Illness HPI narrative: 83 yo male with PMH of porstate cancer with mets to bone currently on denosumab and lupron/ zytigia / prednisone being seen by Dr. Klein and Dr. Mi. He has chronic constipation prior to the diagnosis. At this time he was out opening his pool for the season and his wrists were in the cold water plugging things in. He then notes he came inside did not feel well told his daughter he felt sick and then he had 1 min syncopal event - she caught him no seizure activity. He returned to baseline quickly and states he feels fine now. He notes he has been eating and drinking okay. No CP/SOB. No GIB symptoms. MD complaint: loss of consciousness and collapsed Onset (ago): minute(s) (prior to arrival ) Duration of episode: 1 -: minutes(s) Prodromal symptoms: lightheaded Witnessed: Yes - by Bystander Context: standing up Injuries sustained associated with event: none Current symptoms: back to baseline Treatments prior to arrival: none Related Data Previous Rx's ?Medication ?Instructions ?Recorded psyllium husk 3.4 gram/5.4 gram 1 tbsp PO DAILY #660 grams 08/12/23 oral powder (Metamucil) abiraterone 250 mg tablet 1,000 mg (4 x 250 mg) PO DAILY 30 09/01/23 days #120 tabs calcium citrate 315 mg 2 tab PO BID 90 days #360 tabs 09/01/23 calcium-vitamin D3 6.25 mcg (250 unit) tablet (Citracal + Vitamin D Maximum) prednisone 5 mg tablet 5 mg PO BID 30 days #60 tabs 09/01/23 cholecalciferol (vitamin D3) 10 10 mcg PO DAILY #30 tabs 09/07/23 mcg (400 unit) chewable tablet (Vitamin D3) sennosides 8.6 mg tablet (Senokot) 8.6 mg PO BID PRN Constipation #60 10/05/23 tabs nystatin 100,000 unit/mL oral 400,000 unit (4 mL) PO QID 10 days 11/01/23 suspension #160 mL Allergies Allergy/AdvReac Type Severity Reaction Status Date / Time amoxicillin [From Augmentin] Allergy Severe tongue/facial Verified 11/01/23 12:17 swelling clavulanic acid Allergy Severe tongue/facial Verified 11/01/23 12:17 [From Augmentin] swelling Review of Systems 2 Review of Systems: Constitutional : No Fever, No Chills, No Fatigue ENT/Mouth : No sore throat, No Rhinorrhea Eyes: No Eye Pain, No Swelling, No Redness Cardiovascular : No Chest Pain, No SOB, No Dyspnea on Exertion Respiratory : No Cough, No Sputum Gastrointestinal : No Nausea, No Vomiting, No Diarrhea, No abdominal Pain, pos constipation Genitourinary : No Dysuria, No Urinary Frequency, No Hematuria, Musculoskeletal : No joint pain, No Myalgias, No Joint Swelling Skin : No Skin Lesions, No rash Neuro : No Weakness, No Numbness, No Dizziness, no Headache, pos syncope Psych : No Anxiety/Panic, No Depression All other systems reviewed and are negative PMFSH Past Medical History Attestation statement: The following information was validated with the patient. Source: old records reviewed Medical History Prostate cancer metastatic to bone Hemorrhoids Elevated PSA Surgical History Hx of prostate biopsy Social History Social History Household Members: None Are you a primary home care music therapist to a significant other at home: No Do you presently have visiting nurse or other home services: No Patient Tobacco Use Status: Never used Tobacco Smoked in Last 30 Days: No Use of substances other than those prescribed or required for medical reasons: No Advance Directives: No Advance Directives Information Provided: No service: Yes 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 Oriented X3. No acute distress. Eyes: Pupils equal, round and reactive to light. ENT: Pharynx dry MM with white patches on tongue concerning for thrush Neck: Normal inspection. Neck supple. CVS: Normal heart rate and rhythm. Pulses normal. Respiratory: No respiratory distress. Breath sounds normal. Abdomen: Soft and non-tender. Skin: Skin warm and dry. Normal skin color. Normal skin turgor. Extremities: No lower extremity edema. Neuro: Oriented X 3. No motor deficit. No sensory deficit. Course Course Course Narrative: HTNive and tachycardic - ddimer negative unsure if this is med related states he has no symptoms CT scans pending will update Ernie after results back has never been on BP medications Reevaluation(s) Reevaluation #1: when I review his records and look at BP and HR he is chronically elevated in this range and tachycardic Reevaluation #2: they want to check his HR and BP at home - if abnormal they will call he is chronically elevated in the office but always normal at home Medications Administered Discontinued Medications Generic Name Dose Route Start Last Admin Trade Name Freq PRN Reason Stop Dose Admin Sodium Chloride 500 mls @ 500 mls/hr 11/01/23 12:15 11/01/23 13:30 Ns IV 11/01/23 13:14 Infused .Q1H ONE Infusion Iohexol 100 ml 11/01/23 14:27 11/01/23 14:28 Iohexol 350 Mg/Ml 100 Ml Infus..Btl IV 11/01/23 14:28 85 ml ONCE ONE Administration Medical Decision Making Medical Decision Making [facility] Narrative: 83 yo male with PMH of porstate cancer with mets to bone currently on denosumab and lupron/ zytigia / prednisone here with syncopal episode that had prodrome after putting hands into cold water at this time will need EKG, troponin, ddimer, ortho VS, reported headache to EMS but denies this to me he is high enough risk that I would obtain CT scan of the head for any mass or ICH. Will need VTE rule out anemia, dehydration, IVF ordered at this time Differential Diagnosis Differential Diagnoses: The differential diagnosis associated with the presentation includes syncope, dehydration, anemia, vasovagal VTE no CP/SOB to suggest ACS Admission/Observation Consideration of admission/observation: Escalation of care including admission/observation considered up and walking asymptomatic feels much better chronic abnormal VS when at doctors trop flat x 2 no CP/SOB Consult Healthcare Provider Management of the patient was discussed with: Director Hedis (Dr. Klein aware given he has been on these medications for months unlikely to be cause of HTN tachycardia) Lab Data MDM Lab Attestation statement: I reviewed the patient's lab results. ddimer negative no anemia no dehydration repeat trop flat 11/01/23 12:42 11/01/23 13:53 Labs: Lab Results 11/01/23 11/01/23 11/01/23 Range/Units 12:42 13:53 15:16 WBC 13.0 H (4.8-10.8) X10*3/uL RBC 5.54 (4.60-5.80) X10*6/uL Hgb 17.5 (14.0-18.0) g/dl Hct 51.5 (42.0-52.0) % MCV 93.0 (80.0-98.0) fL MCH 31.6 (27.0-33.0) pg MCHC 34.0 (31.0-36.0) g/dl RDW 13.9 (11.0-16.0) % Plt Count 188 (160-400) X10*3/uL MPV 8.5 L (9.4-12.4) fL Immature Gran % (Auto) 2.1 H (0.0-0.4) % Neut % (Auto) 70.5 (45-73) % Lymph % (Auto) 20.2 (20-40) % Elk % (Auto) 6.6 (2-11) % Eos % (Auto) 0.3 (0-4) % Baso % (Auto) 0.3 (0-2) % Lymph # (Auto) 2.6 (1.2-4.9) X10*3/uL Elk # (Auto) 0.9 (0.1-1.2) X10*3/uL Eos # (Auto) 0.0 (0.0-0.4) X10*3/uL Baso # (Auto) 0.0 (0.0-0.2) X10*3/uL Abs Immat Gran (auto) 0.27 H (0.00-0.03) X10*3/uL Absolute Neuts (auto) 9.2 H (2.0-8.3) x10*3/uL Absolute Nucleated RBC 0.000 (0.0-0.012) X10*3/uL Nucleated RBC % (auto) 0.0 (0.0-0.2) /100WBC D-Dimer High Sensitivty < 150 NG/ML Sodium 141 (135-145) mmol/L Potassium 4.5 (3.3-5.1) mmol/L Chloride 105 (96-108) mmol/L Carbon Dioxide 28 (22-29) mmol/L Anion Gap 13 (12-20) BUN 20 H (9-16) mg/dL Creatinine 1.19 (0.5-1.4) mg/dL Estim Creat Clear Calc 43.9 Estimated GFR 58 Random Glucose 143 H (60-115) mg/dL Calcium 9.7 (8.4-10.2) mg/dL Magnesium 2.1 (1.6-2.6) mg/dL Total Bilirubin 0.6 (0.0-1.0) mg/dL Direct Bilirubin 0.3 (0.0-0.5) mg/dL AST 53 H (5-37) U/L ALT 155 H (0-40) U/L Alkaline Phosphatase 47 (39-117) U/L Troponin I High Sens 31.4 5.8 D (<3.5-35.0) ng/L Total Protein 6.7 (6.5-8.0) g/dL Albumin 3.8 (3.5-5.0) g/dL Lipase 36 (8-78) U/L TSH 1.15 (0.32-4.0) uIU/mL Urine Color Yellow Urine Appearance Clear Urine pH 7.0 (5.0-9.0) Ur Specific [place] 1.015 (1.005-1.025) Urine Protein Negative (Neg-Trace) mg/dL Urine Glucose (UA) Negative (Negative) mg/dL Urine Ketones Negative (Negative) mg/dL Urine Blood Negative (Negative) Urine Nitrite Negative (Negative) Ur Leukocyte Esterase Negative (Negative) Influenza Type A (PCR) NEGATIVE (Negative) Influenza Type B (PCR) NEGATIVE (Negative) RSV RNA Qual (PCR) NEGATIVE (Negative) SARS-CoV-2 RNA (RT-PCR) NEGATIVE (Negative) Independent Interpretation I performed an independent interpretation of an: EKG and CT Scan (no acute cause of symptoms) Interpretation: Rate: 111 Rhythm: sinus tach Lynn: normal Normal P waves. Normal GARETT. Normal QRS complex. ST T wave : nonspecific ST T wave changes lateral and inf leads qTC: 451 prior studies: no priors The study has been interpreted contemporaneously by me. . Radiology Impression Discussion of test interpretation with radiology: I have reviewed the radiologist's reading. Independent Historian Clinical information obtained from an independent historian. History obtained from or confirmed by: EMS and Other (daughter) External Record Review External record reviewed: Office record, Outpatient record and Prior outpatient radiology Critical Care Time Critical Care Time Critical Care Time: Yes Total Critical Care Time: 45 Attestation: review of records, repeat labs, consult, family discussion I attest to this time spent taking care of the patient Discharge Plan Discharge Clinical Impression: Thrush, oral, Chronic hypertension Syncope Qualifiers: Syncope type: unspecified Qualified Code(s): R55 - Syncope and collapse Patient Disposition: Home, Self-Care Instructions: Oral Candidiasis (ED), Syncope (ED), Chronic Hypertension (ED) Additional Instructions: check blood pressure and heart rate at home to see if it is normal and coming down. it should be below 100 for heart rate and blood pressure should be below 140 systolic. Return for worsening symptoms, confusion, dizziness, pain. Please follow up with Dr. Klein tomorrow as planned. Mass is still present and likely the cause of constipation as it compresses the area you need to pass a bowel movement through. CTA of chest is normal you do not have aneurysm CT head normal Prescriptions: New nystatin 100,000 unit/mL suspension 400,000 unit PO QID 10 Days Qty: 160 0RF Rx Instructions: swish and retain in mouth for as long as possible before swallowing. No Action cholecalciferol (vitamin D3) [Vitamin D3] 10 mcg (400 unit) Tablet,Chewable 10 mcg PO DAILY Qty: 30 3RF sennosides [Senokot] 8.6 mg Tablet 8.6 mg PO BID PRN (Reason: Constipation) Qty: 60 4RF Metamucil 3.4 gram/5.4 gram powder 1 tbsp PO DAILY Qty: 660 2RF Rx Instructions: mix into at least 8 oz of water or juice before administering abiraterone 250 mg tablet 1,000 mg PO DAILY 30 Days Qty: 120 5RF Rx Instructions: must be taken on empty stomach, at least 1 hr before or 2 hrs after a meal/food prednisone 5 mg tablet 5 mg PO BID 30 Days Qty: 60 5RF Rx Instructions: Take 1 tablet twice a day while on abiraterone calcium citrate-vitamin D3 [Citracal + D Maximum] 315 mg-6.25 mcg (250 unit) tablet 2 tab PO BID 90 Days Qty: 360 3RF Print Language: Serbian
[2023-11-01] MEDS: 0.9 % Sodium Chloride 500 ML IV (12:27)
[2023-11-01 12:47] LABS: MANUAL DIFF FLAG NO
[2023-11-01 12:50] LABS: Basophils Percent Auto 0.3 % (0-2); Eosinophils Percent Auto 0.3 % (0-4); Hematocrit 51.5 % (42.0-52.0); Hemoglobin 17.5 g/dl (14.0-18.0); Imm Gran Abs Auto 0.27 X10*3/uL (0.00-0.03); Imm Gran Pct Auto 2.1 % (0.0-0.4); Lymphocytes Absolute Auto 2.6 X10*3/uL (1.2-4.9); Lymphocytes Percent Auto 20.2 % (20-40); Mean Corpuscular Hemoglobin 31.6 pg (27.0-33.0); Mean Platelet Volume 8.5 fL (9.4-12.4); Monocytes Absolute Auto 0.9 X10*3/uL (0.1-1.2); Monocytes Percent Auto 6.6 % (2-11); Neutrophils Absolute Auto 9.2 x10*3/uL (2.0-8.3); Neutrophils Percent Auto 70.5 % (45-73); Platelet Count 188 X10*3/uL (160-400); Red Blood Count 5.54 X10*6/uL (4.60-5.80); Red Cell Distribution Width 13.9 % (11.0-16.0)
[2023-11-01 13:01] LABS: D Dimer High Sensitivity < 150 NG/ML
[2023-11-01 13:09] LABS: Troponin-I High Sensitivity 31.4 ng/L (<3.5-35.0)
[2023-11-01 13:26] LABS: Influenza A PCR NEGATIVE (Negative); Influenza B PCR NEGATIVE (Negative); Resp Syncy Virus RNA Qual PCR NEGATIVE (Negative); SARS COV2 PCR INHOUSE NEGATIVE (Negative)
[2023-11-01 14:03] LABS: Appearance Urine Clear; Color Urine Yellow; Glucose Urine UA Negative (Negative); Leukocyte Esterase Urine Negative (Negative); Nitrite Urine Negative (Negative); Specific Gravity - Urine 1.015 (1.005-1.025); Urine Blood Negative (Negative); Urine Ketones Negative (Negative); Urine Protein Negative (Neg-Trace)
[2023-11-01 14:18] LABS: Alanine Aminotransferase 155 U/L (0-40); Albumin Level 3.8 g/dL (3.5-5.0); Alkaline Phosphatase 47 U/L (39-117); Anion Gap 13 (12-20); Aspartate Amino Transferase 53 U/L (5-37); Bilirubin Direct 0.3 mg/dL (0.0-0.5); Bilirubin Total 0.6 mg/dL (0.0-1.0); Blood Urea Nitrogen 20 mg/dL (9-16); Calcium 9.7 mg/dL (8.4-10.2); Carbon Dioxide 28 mmol/L (22-29); Chloride 105 mmol/L (96-108); Creatinine Clr Calc Pharmacy 43.9; Estimated Glomerular Filt Rate 58; Glucose Random 143 mg/dL (60-115); Lipase 36 U/L (8-78); Magnesium 2.1 mg/dL (1.6-2.6); Potassium 4.5 mmol/L (3.3-5.1); Sodium 141 mmol/L (135-145); Total Protein 6.7 g/dL (6.5-8.0)
[2023-11-01] MEDS: iohexoL 350 MG/ML 100 ML INFUS..BTL IV (14:28)
[2023-11-01 15:43] LABS: Troponin-I High Sensitivity 5.8 ng/L (<3.5-35.0)
[2023-11-01 15:52] LABS: TSH reflex Free T4 1.15 uIU/mL (0.32-4.0)
== END 2023-11-01 17:13 | disposition home or self-care (01) ==
PROVIDERS: Emergency Provider Emergency Medicine; PCP Internal Medicine
DX: R55 Syncope and collapse (principal); B37.0 Candidal stomatitis; I10 Essential (primary) hypertension; C61 Malignant neoplasm of prostate; C79.51 Secondary malignant neoplasm of bone
CPT/HCPCS: 0241U; 36415; 70450; 71275; 74177; 80048; 80076; 81003; 83690; 83735; 84443; 84484; 85025; 85379; 93005; 96360; 99284; 99285; Q9967

== ENCOUNTER → 2023-11-01 12:16 | Outpatient (BNV) | payer MEDICARE, OTHER, SELFPAY | PROVIDERS: Emergency Provider Emergency Medicine; PCP Internal Medicine; Visit Provider Internal Medicine Cardiovascular Disease | DX: R94.31 Abnormal electrocardiogram [ECG] [EKG] (principal); R00.0 Tachycardia, unspecified | CPT/HCPCS: 93010 ==

== ENCOUNTER 2023-11-02 13:54 | Outpatient (REF) | payer MEDICARE, OTHER, SELFPAY ==
[2023-11-02 15:23] LABS: Prostate Specific Antigen 5.39 ng/mL (<0.05-4.0)
[2023-11-09 01:39] LABS: Testosterone, Total <1 ng/dL (250-1100)
== END 2023-11-02 13:55 | disposition home or self-care (01) ==
LOC: HO.LAB 13:54
PROVIDERS: PCP Internal Medicine; Visit Provider Urology
DX: C61 Malignant neoplasm of prostate (principal); C79.51 Secondary malignant neoplasm of bone; R97.20 Elevated prostate specific antigen [PSA]; Z12.5 Encounter for screening for malignant neoplasm of prostate
CPT/HCPCS: 36415; 84153; 84403

== ENCOUNTER 2023-12-02 13:04 | Outpatient (REF) | payer MEDICARE, OTHER, SELFPAY ==
--- NOTE | ~2023-12-02 | XR_ITS ---
EXAMINATION: XR HIP, LEFT CLINICAL INFORMATION: Left hip pain COMPARISON: 09/08/2023 TECHNIQUE: Three views of the left hip. FINDINGS: No acute fracture or dislocation. Joint spaces are preserved. Mild osteophytosis of the left hip joint. Mild pelvic enthesopathy. Partially visualized degenerative changes of the spine. XR/XR hip LT w PEL1V IMPRESSION: Mild degenerative changes of the left hip joint.
== END 2023-12-02 13:05 | disposition home or self-care (01) ==
LOC: HO.XRAY 13:04
PROVIDERS: Visit Provider Internal Medicine Medical Oncology
DX: M25.552 Pain in left hip (principal)
CPT/HCPCS: 73502

== ENCOUNTER → 2024-01-11 10:51 | Outpatient (REF) | payer MEDICARE, OTHER, SELFPAY ==
--- NOTE | ~2024-01-11 | NM_ITS ---
EXAMINATION: NM BONE SCAN OF THE WHOLE BODY CLINICAL INFORMATION: Prostate cancer metastatic to bone, follow-up. COMPARISON: The previous bone scan dated 08/19/2023 is available for comparison. Radiographs of the left hip dated 12/02/[address] scan of the abdomen and pelvis dated 11/01/2023 are available for comparison. CT scan of the chest dated 08/19/2023 is also available for comparison. TECHNIQUE: Multiple gamma scintillation camera images of the whole body were performed 2.5 hours following the intravenous administration of 25 mCi Tc-99m MDP. FINDINGS: In the head, no significant abnormalities are present. In the thoracic cage and upper extremities, there is mildly increased activity in the acromioclavicular joints bilaterally and the right sternoclavicular joint. There is a small focus of minimally increased activity in the posterior aspect of the left fifth and seventh ribs an additional foci of faintly increased activity are present in the posterior right third through sixth ribs. In the is a small faint focus of increased activity present in the inferior lateral margin of the left scapula. Foci of very mildly increased activity are present in the humeral heads bilaterally. In the spine, there is a mild thoracolumbar scoliosis with lumbar convexity to the right. There are no foci of abnormal activity in the spine. In the pelvis, there is a small focus of mildly increased activity present in the inferior aspect of the right sacral ala. In the lower extremities, there is mildly increased activity involving approximately 3 cm cephalocaudad length of the midshaft of the left femur. No other definite bony abnormalities are noted. The urinary bladder and faint visualization of both kidneys are noted. Compared to the previous bone scan dated 08/20/2023, a faint focus of increased activity in the midshaft of the right femur on the prior study is not apparent on the current study. Otherwise there has not been a significant change. NM/NM bone scan whole body IMPRESSION: Essentially stable abnormalities are noted at multiple sites, as described above and these remain very suspicious for metastatic tumor involvement of bone. A Fluorine 18 PSMA PET/CT scan may be of additional diagnostic value in characterizing these abnormalities, as well as detecting soft tissue metastases not visible on a bone scan.
== END ==
LOC: HO.NUCMED 10:51
PROVIDERS: PCP Internal Medicine; Visit Provider Internal Medicine Medical Oncology
DX: C61 Malignant neoplasm of prostate (principal); C79.51 Secondary malignant neoplasm of bone
CPT/HCPCS: 78306; A9503

== ENCOUNTER 2024-03-01 16:44 | Outpatient (REF) | payer MEDICARE, OTHER, SELFPAY ==
--- NOTE | ~2024-03-01 | CT_ITS ---
EXAMINATION: CT PELVIS WITHOUT CONTRAST CLINICAL INFORMATION: Malignant neoplasm prostate gland. COMPARISON: CT abdomen and pelvis dated 11/01/2023. TECHNIQUE: Helical scanning was performed with submillimeter collimation through the pelvis. Sagittal and coronal multiplanar 2-D reconstructions were obtained. This CT examination was performed using dose optimization techniques as appropriate, variously including the following: *Automated exposure control *Adjustment of mA and/or kV according to patient size (this includes techniques or standardized protocols for targeted exams where dose is matched to indication/reason for exam; i.e. extremities or head) *Use of iterative reconstruction technique DLP: 401 mGy-cm FINDINGS: PELVIS: There is mild colonic diverticulosis, without acute diverticulitis. No obstruction, ileus or free intraperitoneal air is seen. There is no focal bowel wall thickening. The vermiform appendix is unremarkable. There is mild aortoiliac atherosclerotic calcification. No abdominal aortic aneurysm is seen. There is no pelvic lymphadenopathy. The prostate gland and seminal vesicles are unremarkable. There is a prostatic impression upon the bladder base. The urinary bladder is partially decompressed. There is a tiny fat-containing umbilical hernia. There are very small fat-containing bilateral inguinal hernias. OSSEOUS STRUCTURES: There is marked degenerative disease at L3-4 through L5-S1. No acute or aggressive osseous finding is noted. CT/CT pelvis wo IV con IMPRESSION: 1. The prostate gland has an unremarkable unenhanced appearance. No discrete lesion is seen. No local or distant spread is noted of described prostate neoplasm. 2. There is mild diverticulosis, without acute diverticulitis. 3. No pelvic mass, free fluid or lymphadenopathy is seen. 4. There is multi-level lower lumbar degenerative disease, partially covered in the [id number]. Electronically signed by: Junior Flores MD 03/21/2024 06:46 PM EDT Workstation: [id number]
== END 2024-03-01 16:45 | disposition home or self-care (01) ==
LOC: HO.CT 16:44
PROVIDERS: PCP Internal Medicine; Visit Provider Urology
DX: C61 Malignant neoplasm of prostate (principal); C79.51 Secondary malignant neoplasm of bone
CPT/HCPCS: 72192

== ENCOUNTER 2024-06-22 17:44 | Emergency (ER) | payer MEDICARE, OTHER, SELFPAY ==
--- NOTE | ~2024-06-22 | XR_ITS ---
EXAMINATION: XR CHEST CLINICAL INFORMATION: syncope COMPARISON: None available. TECHNIQUE: 2 views of the chest were obtained. FINDINGS: Lungs are clear. No pulmonary vascular congestion. There is no pleural effusion. The heart size is normal. The cardiac and mediastinal contours are normal. There are multilevel degenerative changes of dorsal spine. XR/XR chest 2V IMPRESSION: Unremarkable examination. Electronically signed by: Chriss Camargo MD 06/22/2024 06:41 PM EST
[2024-06-22 17:49] VITALS: BP 186/112; PULSE 100; O2SAT 94
--- NOTE | 2024-06-22 17:50 | ED.GENADULT ---
HPI - General Adult General Chief complaint: Syncope Stated complaint: SYNCOPAL EPISODE, HTN, OFF FOR 3 DAYS PER EMS Time Seen by Provider: 06/22/24 17:46 History of Present Illness ED Provider: Seven [facility] narrative: The patient is an 84-year-old man with a history of prostate cancer. He recently started a new oral anti cancer medication. He says that he was feeling well yesterday morning. He went to a casino and felt perfectly fine. Yesterday evening he felt somewhat nauseated when he went to bed. This morning he woke up with persistent nausea. He tried to eat some toast in the morning but had some dry heaves. He rested in bed for awhile and spent the afternoon flank computer games. This evening he wanted to see if he could tolerate any food and he had some soup that his son had prepared. After 2 sips of soup he felt unwell and lightheaded as if he might pass out. He then passed out. There was no seizure activity noted. His son called 911. He was awake when paramedics arrived. He was found to have a high blood pressure. He was transported to the hospital without incident. At no point did he have any headache. At no point did he have any chest pain. At no point did he have any shortness of breath or abdominal pain. He says he had 1 previous episode of fainting several months ago after being exposed to very cold water. The patient hypothesizes that perhaps he felt unwell today because of his new medication or perhaps he ?caught a bug at the casino. The patient's son is with him in the emergency room. The son confirms that the patient's speech is his normal speech and his demeanor is is normal demeanor. Related Data Previous Rx's ?Medication ?Instructions ?Recorded psyllium husk 3.4 gram/5.4 gram 1 tbsp PO DAILY #660 grams 08/12/23 oral powder (Metamucil) calcium 315 mg (as 2 tab PO BID 90 days #360 tabs 09/01/23 citrate)-vitamin D3 6.25 mcg (250 unit) tablet (Citracal + Vitamin D Maximum) cholecalciferol (vitamin D3) 10 10 mcg PO DAILY #30 tabs 09/07/23 mcg (400 unit) chewable tablet (Vitamin D3) sennosides 8.6 mg tablet (Senokot) 8.6 mg PO BID PRN Constipation #60 10/05/23 tabs nystatin 100,000 unit/mL oral 400,000 unit (4 mL) PO QID 10 days 11/01/23 suspension #160 mL ondansetron 4 mg disintegrating 4 mg PO Q6H PRN Nausea And 11/02/23 tablet Vomiting #50 tabs fluconazole 100 mg tablet 100 mg PO DAILY #10 tabs 12/28/23 (Diflucan) abiraterone 250 mg tablet 1,000 mg (4 x 250 mg) PO DAILY 30 02/02/24 days #120 tabs prednisone 5 mg tablet 5 mg PO BID 30 days #60 tabs 03/28/24 enzalutamide 80 mg tablet (Xtandi) 160 mg (2 x 80 mg) PO DAILY #60 05/24/24 tabs Allergies Allergy/AdvReac Type Severity Reaction Status Date / Time amoxicillin [From Augmentin] Allergy Severe tongue/facial Verified 06/22/24 18:05 swelling clavulanic acid Allergy Severe tongue/facial Verified 06/22/24 18:05 [From Augmentin] swelling Review of Systems Review of Systems: Yes all other systems are reviewed and are negative PMFSH Past Medical History Medical History (Updated 06/22/24 @ 21:35 by Surya Amezcua MD) Prostate cancer metastatic to bone Hemorrhoids Elevated PSA Surgical History Hx of prostate biopsy Social History Social History Household Members: None Are you a primary daycare manager to a significant other at home: No Do you presently have visiting nurse or other home services: No Patient Tobacco Use Status: Never used Tobacco Smoked in Last 30 Days: No Use of substances other than those prescribed or required for medical reasons: No Advance Directives: No Advance Directives Information Provided: Yes service: Yes 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 He is somewhat hard of hearing and questions had to be repeated (this is baseline according to the son). Otherwise the patient did not seem in distress or ill in any way. Mental status was normal. HENMT Other: Face is symmetrical. The right tympanic membrane is obscured by cerumen in the external ear canal. The left tympanic membrane is unremarkable. The oropharynx is normal. Mucous membranes are moist. Tongue is midline. Eyes Other: Pupils are round, equal, and reactive to light. Extraocular movements are intact, conjunctivae clear Neck Neck: Yes full ROM and Yes no JVD Resp Effort & Inspection: normal respiratory effort Auscultation: clear to auscultation bilaterally Cardio Rate: regular rate Rhythm: regular rhythm Heart sounds: S1 normal heart sound present and S2 normal heart sound present GI Other: Abdomen is soft and nontender Skin Other: Skin is dry unremarkable Neuro Other: The patient is awake and alert, oriented and appropriate. GCS is 15. Mental status is normal. Cognition is normal. The patient is mildly hard of hearing. Pupils are round equal, extraocular movements are intact. Face is symmetrical. Speech is clear. Strength is symmetrical in all extremities. Gait is steady. Extrem Other: No calf swelling or tenderness, no asymmetry, no edema Medications Administered Discontinued Medications Generic Name Dose Route Start Last Admin Trade Name Freq PRN Reason Stop Dose Admin Sodium Chloride 1,000 mls @ 999 mls/hr 06/22/24 19:00 06/22/24 20:47 Ns IV 06/22/24 20:00 Infused .Q1H1M BAUTISTA Infusion Medical Decision Making Medical Decision Making [facility] Narrative: The patient is an 84-year-old male being treated for prostate cancer. He has no history of significant vascular disease. Today he had a syncopal episode while eating soup at the table. He had prodromal symptoms that he might pass out. He felt lightheaded and then passed out. He had had very little to eat or drink during the previous 24 hours and had had some nausea which was not associated with any abdominal pain, chest pain, or headache. It was not associated with any shortness of breath. He has a normal neurological exam. His abdomen is benign. He does not seem to exhibit any respiratory symptoms at all. My overall impression is that this may have been some kind of vagal episode. The patient was given a liter of IV fluid and was feeling better and was eager to go home. He was walking without difficulty. He will be discharged to follow up with his regular providers or return to the emergency room if he feels worse or has another syncopal episode. Lab Data 06/22/24 18:29 06/22/24 18:29 Labs: Lab Results 06/22/24 06/22/24 Range/Units 18:29 18:30 WBC 11.4 H (4.8-10.8) X10*3/uL RBC 4.95 (4.60-5.80) X10*6/uL Hgb 16.1 (14.0-18.0) g/dl Hct 45.5 (42.0-52.0) % MCV 91.9 (80.0-98.0) fL MCH 32.5 (27.0-33.0) pg MCHC 35.4 (31.0-36.0) g/dl RDW 12.5 (11.0-16.0) % Plt Count 205 (160-400) X10*3/uL MPV 8.6 L (9.4-12.4) fL Immature Gran % (Auto) 0.5 H (0.0-0.4) % Neut % (Auto) 73.3 H (45-73) % Lymph % (Auto) 16.1 L (20-40) % [place] % (Auto) 8.6 (2-11) % Eos % (Auto) 1.3 (0-4) % Baso % (Auto) 0.2 (0-2) % Lymph # (Auto) 1.8 (1.2-4.9) X10*3/uL [place] # (Auto) 1.0 (0.1-1.2) X10*3/uL Eos # (Auto) 0.2 (0.0-0.4) X10*3/uL Baso # (Auto) 0.0 (0.0-0.2) X10*3/uL Abs Immat Gran (auto) 0.06 H (0.00-0.03) X10*3/uL Absolute Neuts (auto) 8.3 (2.0-8.3) x10*3/uL Absolute Nucleated RBC 0.000 (0.0-0.012) X10*3/uL Nucleated RBC % (auto) 0.0 (0.0-0.2) /100WBC PT 12.8 H (10.9-12.4) SEC INR 1.1 (0.9-1.1) VBG pH 7.38 (7.32-7.43) VBG pCO2 34 mmHg VBG pO2 61 mmHg VBG HCO3 21 L (22-26) mmol/L VBG O2 Saturation 90.0 % VBG Base Excess -3.1 mmol/L Sodium 138 (135-145) mmol/L Potassium 4.0 (3.3-5.1) mmol/L Chloride 105 (96-108) mmol/L Carbon Dioxide 20 L (22-29) mmol/L Anion Gap 17 (12-20) BUN 11 (9-16) mg/dL Creatinine 1.26 (0.5-1.4) mg/dL Estim Creat Clear Calc 40.7 Estimated GFR 54 Random Glucose 123 H (60-115) mg/dL Calcium 9.0 D (8.4-10.2) mg/dL Magnesium 2.1 (1.6-2.6) mg/dL Total Bilirubin 0.9 (0.0-1.0) mg/dL Direct Bilirubin 0.3 (0.0-0.5) mg/dL AST 43 H (5-37) U/L ALT 35 (0-40) U/L Alkaline Phosphatase 40 (39-117) U/L Troponin I High Sens 8.5 (<3.5-35.0) ng/L B-Natriuretic Peptide 49 (<100) pg/mL Total Protein 6.7 (6.5-8.0) g/dL Albumin 3.9 (3.5-5.0) g/dL Urine Color Yellow Urine Appearance Clear Urine pH 6.0 (5.0-9.0) Ur Specific Oral 1.015 (1.005-1.025) Urine Protein 30 (1+) H (Neg-Trace) mg/dL Urine Glucose (UA) Negative (Negative) mg/dL Urine Ketones Trace (Negative) mg/dL Urine Blood Trace H (Negative) Urine Nitrite Negative (Negative) Ur Leukocyte Esterase Negative (Negative) Urine RBC 0-2 (0-2) /HPF Urine WBC 0-5 (0-5) /HPF Ur Squamous Epith Cells 0-2 (0-2) /HPF Urine Bacteria None Seen (None Seen) Hyaline Casts 3-5 (0-2) /LPF Urine Opiates Screen Not Detected (Not Detect) Ur Buprenorphine Scrn Not Detected (Not Detect) ng/mL Ur Oxycodone Screen Not Detected (Not Detect) ng/mL Urine Methadone Screen Not Detected (Not Detect) ng/mL Urine Fentanyl Screen Not Detected (Not Detect) Ur Barbiturates Screen Not Detected (Not Detect) Ur Phencyclidine Scrn Not Detected (Not Detect) Ur Amphetamines Screen Not Detected (Not Detect) U Benzodiazepines Scrn Not Detected (Not Detect) Urine Cocaine Screen Not Detected (Not Detect) U Marijuana (THC) Screen Not Detected (Not Detect) Ethyl Alcohol < 10 mg/dL Influenza Type A (PCR) NEGATIVE (Negative) Influenza Type B (PCR) NEGATIVE (Negative) RSV RNA Qual (PCR) NEGATIVE (Negative) SARS-CoV-2 RNA (RT-PCR) NEGATIVE (Negative) Independent Interpretation I performed an independent interpretation of an: EKG Interpretation: EKG at 18 15 shows sinus tachycardia at 101 beats per minute with occasional premature ventricular complexes, otherwise normal EKG Discharge Plan Discharge Clinical Impression: Syncope Patient Disposition: Home, Self-Care Additional Instructions: Your testing in the emergency room today did not reveal any definite explanation for your fainting episode. Please try to increase your fluid intake. Follow up next week with your regular doctor to discuss this episode further. Return to the emergency room if you feel worse or you have another such episode. Prescriptions: No Action abiraterone 250 mg tablet 1,000 mg PO DAILY 30 Days Qty: 120 5RF Rx Instructions: must be taken on empty stomach, at least 1 hr before or 2 hrs after a meal/food prednisone 5 mg tablet 5 mg PO BID 30 Days Qty: 60 5RF Rx Instructions: Take 1 tablet twice a day while on abiraterone cholecalciferol (vitamin D3) [Vitamin D3] 10 mcg (400 unit) Tablet,Chewable 10 mcg PO DAILY Qty: 30 3RF sennosides [Senokot] 8.6 mg Tablet 8.6 mg PO BID PRN (Reason: Constipation) Qty: 60 4RF ondansetron 4 mg Tablet,Disintegrating 4 mg PO Q6H PRN (Reason: Nausea And Vomiting) Qty: 50 3RF fluconazole [Diflucan] 100 mg Tablet 100 mg PO DAILY Qty: 10 3RF Xtandi 80 mg Tablet 160 mg PO DAILY Qty: 60 3RF nystatin 100,000 unit/mL suspension 400,000 unit PO QID 10 Days Qty: 160 0RF Rx Instructions: swish and retain in mouth for as long as possible before swallowing. Metamucil 3.4 gram/5.4 gram powder 1 tbsp PO DAILY Qty: 660 2RF Rx Instructions: mix into at least 8 oz of water or juice before administering calcium citrate-vitamin D3 [Citracal + D Maximum] 315 mg-6.25 mcg (250 unit) tablet 2 tab PO BID 90 Days Qty: 360 3RF Interventions: ED Discharge Assessment Last Done: 06/22/24 22:18 Discharge Date/Time: 06/22/24 22:18 Print Language: Faroese
[2024-06-22 18:01] VITALS: BP 181/102; PULSE 103; RESP 18; TEMP 36.9; O2SAT 95; BMI 24.2
--- NOTE | 2024-06-22 18:03 | ECG_ITS ---
Test Reason : SYNCOPE Blood Pressure : / mmHG Vent. Rate : 101 BPM Atrial Rate : 101 BPM P-R Int : 144 ms QRS Dur : 086 ms QT Int : 358 ms P-R-T Axes : 027 008 031 degrees QTc Int : 464 ms Sinus tachycardia with occasional Premature ventricular complexes Otherwise normal ECG When compared with ECG of 01-NOV-2023 12:24, Premature ventricular complexes are now Present Referred By: Surya Amezcua Electronically Signed By:BHAVIN VICENTE
[2024-06-22 18:34] VITALS: BP 181/102; PULSE 102; RESP 16; TEMP 36.8; O2SAT 96
[2024-06-22 18:36] LABS: MANUAL DIFF FLAG NO
[2024-06-22 18:41] LABS: Appearance Urine Clear; Color Urine Yellow; Glucose Urine UA Negative (Negative); Leukocyte Esterase Urine Negative (Negative); Nitrite Urine Negative (Negative); Specific Gravity - Urine 1.015 (1.005-1.025); UMIC TRIGGER UACC YES; Urine Blood Trace (Negative); Urine Ketones Trace mg/dL (Negative); Urine Protein 30 (1+) mg/dL (Neg-Trace)
[2024-06-22 18:44] LABS: Basophils Percent Auto 0.2 % (0-2); Eosinophils Absolute Auto 0.2 X10*3/uL (0.0-0.4); Eosinophils Percent Auto 1.3 % (0-4); Hematocrit 45.5 % (42.0-52.0); Hemoglobin 16.1 g/dl (14.0-18.0); Imm Gran Abs Auto 0.06 X10*3/uL (0.00-0.03); Imm Gran Pct Auto 0.5 % (0.0-0.4); Lymphocytes Absolute Auto 1.8 X10*3/uL (1.2-4.9); Lymphocytes Percent Auto 16.1 % (20-40); Mean Corpuscular HGB Conc 35.4 g/dl (31.0-36.0); Mean Corpuscular Hemoglobin 32.5 pg (27.0-33.0); Mean Corpuscular Volume 91.9 fL (80.0-98.0); Mean Platelet Volume 8.6 fL (9.4-12.4); Monocytes Percent Auto 8.6 % (2-11); Neutrophils Absolute Auto 8.3 x10*3/uL (2.0-8.3); Neutrophils Percent Auto 73.3 % (45-73); Platelet Count 205 X10*3/uL (160-400); Red Blood Count 4.95 X10*6/uL (4.60-5.80); Red Cell Distribution Width 12.5 % (11.0-16.0); White Blood Count 11.4 X10*3/uL (4.8-10.8)
[2024-06-22 18:47] LABS: VBG Base Excess -3.1 mmol/L; VBG HCO3 21 mmol/L (22-26); VBG pCO2 34 mmHg; VBG pH 7.38 (7.32-7.43); VBG pO2 61 mmHg
[2024-06-22 18:48] LABS: Venous Blood Gas Refer to POC result
[2024-06-22 18:49] LABS: Amphetamine Screen Urine Not Detected (Not Detect); Barbiturates, Urine Not Detected (Not Detect); Benzodiazepines Screen Urine Not Detected (Not Detect); Buprenorphine Scr Not Detected (Not Detect); Cannabinoid Screen Urine Not Detected (Not Detect); Cocaine Screen Urine Not Detected (Not Detect); Fentanyl, urine Not Detected (Not Detect); Methadone Screen, Urine Not Detected (Not Detect); Opiate Screen Urine Not Detected (Not Detect); Oxycodone Screen Urine Not Detected (Not Detect); Phencyclidine Screen Urine Not Detected (Not Detect)
[2024-06-22 18:51] LABS: Bacteria Urine None Seen (None Seen); RBC Urine 0-2 /HPF (0-2); Squamous Epithelial Cell Urine 0-2 /HPF (0-2); WBC Urine 0-5 /HPF (0-5)
[2024-06-22 18:55] LABS: Alanine Aminotransferase 35 U/L (0-40); Albumin Level 3.9 g/dL (3.5-5.0); Alkaline Phosphatase 40 U/L (39-117); Anion Gap 17 (12-20); Aspartate Amino Transferase 43 U/L (5-37); Bilirubin Direct 0.3 mg/dL (0.0-0.5); Bilirubin Total 0.9 mg/dL (0.0-1.0); Blood Urea Nitrogen 11 mg/dL (9-16); Carbon Dioxide 20 mmol/L (22-29); Chloride 105 mmol/L (96-108); Creatinine Clr Calc Pharmacy 40.7; Estimated Glomerular Filt Rate 54; Glucose Random 123 mg/dL (60-115); Magnesium 2.1 mg/dL (1.6-2.6); Sodium 138 mmol/L (135-145); Total Protein 6.7 g/dL (6.5-8.0)
[2024-06-22 18:58] LABS: B Type Natriuretic Peptide 49 pg/mL (<100)
[2024-06-22 19:02] LABS: Troponin-I High Sensitivity 8.5 ng/L (<3.5-35.0)
[2024-06-22] MEDS: 0.9 % Sodium Chloride 1,000 ML 999 ML IV (19:10)
--- NOTE | 2024-06-22 19:14 | PC.NURSE ---
this rn assumed care of pt, pt a&ox4, respirations even and unlabored. pt reports he had a syncopal episode prior to arrival. pt reports he has not been drinking a lot of water and reports he may be dehydrated. pt returned from CT at this time, 20G placed in right forearm, IV fluids administered.
[2024-06-22 19:16] LABS: Influenza A PCR NEGATIVE (Negative); Influenza B PCR NEGATIVE (Negative); Resp Syncy Virus RNA Qual PCR NEGATIVE (Negative); SARS COV2 PCR INHOUSE NEGATIVE (Negative)
[2024-06-22 19:17] LABS: Ethanol < 10 mg/dL
[2024-06-22 19:21] LABS: INTERNATIONAL NORM RATIO 1.1 (0.9-1.1); Prothrombin Time 12.8 SEC (10.9-12.4)
[2024-06-22 21:54] VITALS: O2SAT 98
[2024-06-22 22:17] VITALS: BP 134/86; PULSE 86; RESP 16; TEMP 37; O2SAT 99
[2024-06-22 22:18] VITALS: BP 134/86; PULSE 86; RESP 16; TEMP 37; O2SAT 99
== END 2024-06-22 22:18 | disposition home or self-care (01) ==
PROVIDERS: Emergency Provider Emergency Medicine; PCP Internal Medicine
DX: R55 Syncope and collapse (principal); Z03.818 Encounter for observation for suspected exposure to other biological agents ruled out; C61 Malignant neoplasm of prostate; C79.51 Secondary malignant neoplasm of bone; Z79.899 Other long term (current) drug therapy
CPT/HCPCS: 0241U; 36415; 71046; 80048; 80076; 80307; 81001; 82803; 83735; 83880; 84484; 85025; 85610; 93005; 96360; 96361; 99285

== ENCOUNTER → 2024-06-22 18:03 | Outpatient (BNV) | payer MEDICARE, OTHER, SELFPAY | PROVIDERS: Emergency Provider Emergency Medicine; PCP Internal Medicine; Visit Provider Internal Medicine | DX: R55 Syncope and collapse (principal); R00.0 Tachycardia, unspecified | CPT/HCPCS: 93010 ==

== ENCOUNTER → 2024-06-30 10:48 | Outpatient (REF) | payer MEDICARE, OTHER, SELFPAY ==
--- NOTE | ~2024-06-30 | NM_ITS ---
EXAMINATION: NM BONE SCAN OF THE WHOLE BODY CLINICAL INFORMATION: Prostate cancer with bone metastases. Rising PSA. COMPARISON: Previous bone scans dated 01/11/2024 and 08/19/2023 available for comparison. Radiographs of the chest dated 06/20/[address] scan of the pelvis dated 03/01/2024 are available for comparison. TECHNIQUE: Multiple gamma scintillation camera images of the whole body were performed 3 hours following the intravenous administration of 26 mCi Tc-99m MDP. FINDINGS: In the head, no significant abnormalities are present. In the thoracic cage and upper extremities, foci of mildly to moderately increased activity are present in several ribs, most prominently in the posterior right ninth and left fourth and fifth ribs. A few additional faint rib lesions are present bilaterally. There is a focus of mildly increased activity in the mid shaft of the right humerus. There are small faint foci of increased activity medially and laterally in the right humeral head and faintly in the glenohumeral articulation of the left humeral head. There is a focus of mildly increased activity in the coracoid process of the right scapula. There is a small focus of mildly increased activity in the inferior lateral margin of the left scapula. Mildly to moderately increased activity is present in the acromioclavicular joints bilaterally and there is mildly increased activity in the right sternoclavicular joint. There is a small focus of residual radiopharmaceutical at the injection site in the left antecubital fossa. In the spine, there is a mild thoracolumbar scoliosis with lumbar convexity to the right. There is a focus of mildly increased activity in the right side of the T10 vertebral body and another in the right side of L3. There is a focus in the right costovertebral junction of T5 which may be in the right transverse process of the adjacent medial right fifth rib. There is an additional focus of mildly increased activity in the right side of the lower cervical spine. In the pelvis, there is a focus of mildly increased activity near the midline in the upper sacrum, likely and S2 and there is an additional faint focus of increased activity present in the supra-acetabular region of the left iliac bone and a mother faint focus in the posterior crest of the left iliac bone and another small region in the right anterior iliac spine region. There is also a focus of mildly increased activity in the posterior right iliac bone adjacent to the superior aspect of the sacroiliac joint. An additional focus of mildly increased activity is present in the left ischium. In the lower extremities, there is a focus of mildly increased activity in the mid shaft of the left femur. No other definite bony abnormalities are noted. The urinary bladder and faint visualization of both kidneys are noted. Compared to the previous bone scan dated 01/11/2024, the rib lesions on the current study are much more intense than 01/11/2024 and the abnormalities at T10 and L3 appear new. The abnormalities in the mid shaft of the left femur and right humerus appear larger and more intense on the current study. NM/NM bone scan whole body IMPRESSION: Metastatic tumor involvement of bone with progression in the bone scan appearance compared to 01/11/2024. Electronically signed by: Jose Elias Solomon MD 07/03/2024 09:58 AM FRANDY PHILLIPS
== END ==
LOC: HO.NUCMED 10:48
PROVIDERS: PCP Internal Medicine; Visit Provider Internal Medicine Medical Oncology
DX: C61 Malignant neoplasm of prostate (principal); C79.51 Secondary malignant neoplasm of bone
CPT/HCPCS: 78306; A9503

== ENCOUNTER 2024-07-03 12:15 | Observation (INO) | payer MEDICARE, OTHER, SELFPAY ==
--- NOTE | ~2024-07-03 | MR_ITS ---
EXAMINATION: MR BRAIN WITHOUT CONTRAST CLINICAL INFORMATION: Blurry vision. Metastatic prostate cancer. COMPARISON: CT head from 11/01/2023. TECHNIQUE: MRI of the brain was obtained using routine sequences without contrast. FINDINGS: No focal restricted diffusion is demonstrated to suggest acute or subacute cerebral ischemia. No evidence of acute or chronic hemorrhagic products on heme-sensitive imaging. Confluent periventricular, deep white matter, and brainstem T2 FLAIR hyperintensity consistent with underlying microangiopathy. Proportional prominence of the ventricles and sulcal spaces without evidence of obstructive hydrocephalus. No abnormal mass effect. No midline shift. Normal appearance of the pituitary gland. Normal positioning of the cerebellar tonsils. Normal arterial and venous vascular flow voids are present. Marrow replacing lesion within the C2 base. No overtly demonstrated additional marrow replacing lesions. Mild mucosal thickening of the paranasal sinuses. Moderate rightward nasal septal deviation with spurring. No signal abnormalities within the mastoids. MR/MR head/brain wo con IMPRESSION: 1. No acute intracranial abnormalities. 2. Moderate to extensive chronic white matter changes. 3. Marrow replacing lesion within the C2 base consistent with metastatic disease. Electronically signed by: Ramakrishna Leahy DO 07/03/2024 07:22 PM EST
--- NOTE | ~2024-07-03 | XR_ITS ---
EXAMINATION: XR CHEST CLINICAL INFORMATION: chest pain COMPARISON: 06/22/2024. TECHNIQUE: Frontal view of the chest was obtained. FINDINGS: Cardiac, hilar, and mediastinal contours are normal. Lungs are clear bilaterally aside from minimal scarring left base. No effusion or pneumothorax. No acute bony or soft tissue abnormality. XR/XR chest 1V IMPRESSION: No active disease. No change. Electronically signed by: Miguel Ángel Hall MD 07/03/2024 04:26 PM FRANDY
[2024-07-03 12:26] VITALS: BP 160/82; PULSE 96; O2SAT 96
[2024-07-03 12:37] VITALS: BP 165/99; PULSE 93; RESP 17; TEMP 36.4; O2SAT 97; BMI 24.2
[2024-07-03 13:37] VITALS: BP 164/95; PULSE 93; RESP 19; O2SAT 98
--- NOTE | 2024-07-03 14:15 | ECG_ITS ---
Test Reason : chest pain Blood Pressure : / mmHG Vent. Rate : 094 BPM Atrial Rate : 094 BPM P-R Int : 150 ms QRS Dur : 088 ms QT Int : 384 ms P-R-T Axes : 035 009 017 degrees QTc Int : 480 ms Normal sinus rhythm Poor R wave progression probably due to lead placement Abnormal ECG When compared with ECG of 22-JUN-2024 18:15, Premature ventricular complexes are no longer Present Borderline criteria for Anterior infarct are now Present Referred By: Randall Wells Electronically Signed By:TOMMY BABCOCK MD
--- NOTE | 2024-07-03 14:16 | ED_ITS ---
HPI - General Adult General Chief complaint: General Medical Stated complaint: NEW [place] MED CAUSING DIZZY/VISION PROB PER EMS Time Seen by Provider: 07/03/24 13:44 Source: patient Mode of arrival: ambulatory Limitations: no limitations History of Present Illness HPI narrative: this is 84 years old the patient presented by ambulance with a chief complaint of near syncopal episode. This morning was lightheaded blurred vision eventually called an ambulance denies any chest pain shortness of breath. This is a 2nd episode of syncope he was seen on June 22 in this emergency department as well. Onset (ago): hour(s) (2) Radiation: non-radiation Severity: mild Relieving factors: none Exacerbating factors: none Associated symptoms: denies other symptoms Treatments prior to arrival: none Related Data Previous Rx's ?Medication ?Instructions ?Recorded psyllium husk 3.4 gram/5.4 gram 1 tbsp PO DAILY #660 grams 08/12/23 oral powder (Metamucil) calcium 315 mg (as 2 tab PO BID 90 days #360 tabs 09/01/23 citrate)-vitamin D3 6.25 mcg (250 unit) tablet (Citracal + Vitamin D Maximum) cholecalciferol (vitamin D3) 10 10 mcg PO DAILY #30 tabs 09/07/23 mcg (400 unit) chewable tablet (Vitamin D3) sennosides 8.6 mg tablet (Senokot) 8.6 mg PO BID PRN Constipation #60 10/05/23 tabs nystatin 100,000 unit/mL oral 400,000 unit (4 mL) PO QID 10 days 11/01/23 suspension #160 mL ondansetron 4 mg disintegrating 4 mg PO Q6H PRN Nausea And 11/02/23 tablet Vomiting #50 tabs fluconazole 100 mg tablet 100 mg PO DAILY #10 tabs 12/28/23 (Diflucan) abiraterone 250 mg tablet 1,000 mg (4 x 250 mg) PO DAILY 30 02/02/24 days #120 tabs prednisone 5 mg tablet 5 mg PO BID 30 days #60 tabs 03/28/24 enzalutamide 80 mg tablet (Xtandi) 160 mg (2 x 80 mg) PO DAILY #60 05/24/24 tabs Allergies Allergy/AdvReac Type Severity Reaction Status Date / Time amoxicillin [From Augmentin] Allergy Severe tongue/facial Verified 07/03/24 12:40 swelling clavulanic acid Allergy Severe tongue/facial Verified 07/03/24 12:40 [From Augmentin] swelling Review of Systems 2 Constitutional: Constitutional: Reports no additional constitutional complaints ENT: Reports system reviewed and no additional complaints, except as documented Cardiovascular: Cardiovascular: Reports no additional cardiovascular complaints [facility] Past Medical History Attestation statement: The following information was validated with the patient. 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 Medical History Prostate cancer metastatic to bone Hemorrhoids Elevated PSA Surgical History Hx of prostate biopsy Social History Social History Household Members: None Are you a primary care director to a significant other at home: No Do you presently have visiting nurse or other home services: No Patient Tobacco Use Status: Never used Tobacco Smoked in Last 30 Days: No Use of substances other than those prescribed or required for medical reasons: No Advance Directives: No Advance Directives Information Provided: Yes service: Yes 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 Physical Exam ED Vital Signs: Vital Signs - 24 hr 07/03/24 12:37 07/03/24 13:37 Temperature 97.6 F Pulse Rate 93 93 Respiratory Rate 17 19 Blood Pressure 165/99 H 164/95 H Pulse Oximetry 97 98 Oxygen Delivery Method Room Air BMI result Body Mass Index 24.2 Const General: cooperative Nutritional Appearance: well nourished Orientation/consciousness: patient oriented x3 HENMT Head: Yes normal to inspection Ears: hearing grossly normal bilaterally General nose exam: Normal external nose present Face and sinus: Yes normal facial exam Mouth: Normal oral and palatal mucosa present Throat: Yes posterior oropharynx normal Neck Neck: Yes normal visual inspection Chest Chest palpation & inspection: normal inspection of the chest Resp Effort & Inspection: normal respiratory effort Auscultation: clear to auscultation bilaterally Cardio Jugular venous distension: no JVD Rate: regular rate Rhythm: regular rhythm GI Inspection: Yes normal to inspection Palpation (GI): Soft to palpation, not firm, nontender and no guarding Auscultation: normal bowel sounds Skin General skin exam: no rashes or lesions noted and elasticity normal Rashes: no rashes Neuro General: patient oriented x3 Cranial nerves: Yes CN's II-XII intact bilaterally and Yes Bilaterally intact EOM present Course Reevaluation(s) Reevaluation #1: pt remain stable second trip to the ED for syncope will admit Time: 16:12 Medications Administered Discontinued Medications Generic Name Dose Route Start Last Admin Trade Name Freq PRN Reason Stop Dose Admin Sodium Chloride 1,000 mls @ 999 mls/hr 07/03/24 14:15 07/03/24 14:42 Ns IVCONT 07/03/24 15:15 999 mls/hr .Q1H1M BAUTISTA Administration Medical Decision Making Medical Decision Making MDM Narrative: patient presented to the emergency department with under syncopal episode we will check EKG labs Differential Diagnosis Differential Diagnoses: The differential diagnosis associated with the presentation includes dehydration/arrhythmia Admission/Observation Consideration of admission/observation: Escalation of care including admission/observation considered Consult Healthcare Provider Management of the patient was discussed with: Hospitalist Lab Data [facility] Lab Attestation statement: I reviewed the patient's lab results. 07/03/24 14:40 07/03/24 14:40 Labs: Lab Results 07/03/24 07/03/24 Range/Units 14:40 15:50 WBC 10.4 (4.8-10.8) X10*3/uL RBC 4.93 (4.60-5.80) X10*6/uL Hgb 15.7 (14.0-18.0) g/dl Hct 45.2 (42.0-52.0) % MCV 91.7 (80.0-98.0) fL MCH 31.8 (27.0-33.0) pg MCHC 34.7 (31.0-36.0) g/dl RDW 12.4 (11.0-16.0) % Plt Count 237 (160-400) X10*3/uL MPV 8.5 L (9.4-12.4) fL Immature Gran % (Auto) 0.5 H (0.0-0.4) % Neut % (Auto) 72.5 (45-73) % Lymph % (Auto) 16.8 L (20-40) % [place] % (Auto) 7.4 (2-11) % Eos % (Auto) 2.7 (0-4) % Baso % (Auto) 0.1 (0-2) % Lymph # (Auto) 1.8 (1.2-4.9) X10*3/uL [place] # (Auto) 0.8 (0.1-1.2) X10*3/uL Eos # (Auto) 0.3 (0.0-0.4) X10*3/uL Baso # (Auto) 0.0 (0.0-0.2) X10*3/uL Abs Immat Gran (auto) 0.05 H (0.00-0.03) X10*3/uL Absolute Neuts (auto) 7.6 (2.0-8.3) x10*3/uL Absolute Nucleated RBC 0.000 (0.0-0.012) X10*3/uL Nucleated RBC % (auto) 0.0 (0.0-0.2) /100WBC Sodium 139 (135-145) mmol/L Potassium 4.4 (3.3-5.1) mmol/L Chloride 104 (96-108) mmol/L Carbon Dioxide 27 (22-29) mmol/L Anion Gap 12 (12-20) BUN 11 (9-16) mg/dL Creatinine 1.12 (0.5-1.4) mg/dL Estim Creat Clear Calc 42.7 Estimated GFR > 60 Random Glucose 102 (60-115) mg/dL Calcium 9.6 D (8.4-10.2) mg/dL Total Bilirubin 0.5 (0.0-1.0) mg/dL AST 55 H (5-37) U/L ALT 45 H (0-40) U/L Alkaline Phosphatase 38 L (39-117) U/L Troponin I High Sens 8.0 (<3.5-35.0) ng/L Total Protein 6.9 (6.5-8.0) g/dL Albumin 4.0 (3.5-5.0) g/dL Urine Color Yellow Urine Appearance Clear Urine pH 6.5 (5.0-9.0) Ur Specific [place] 1.010 (1.005-1.025) Urine Protein Trace (Neg-Trace) mg/dL Urine Glucose (UA) Negative (Negative) mg/dL Urine Ketones Negative (Negative) mg/dL Urine Blood Negative (Negative) Urine Nitrite Negative (Negative) Ur Leukocyte Esterase Negative (Negative) Urine RBC 0-2 (0-2) /HPF Urine WBC 0-5 (0-5) /HPF Ur Squamous Epith Cells 0-2 (0-2) /HPF Urine Bacteria None Seen (None Seen) Hyaline Casts 0-2 (0-2) /LPF Independent Interpretation I performed an independent interpretation of an: EKG Interpretation: nsr no ischemia Independent Historian Clinical information obtained from an independent historian. History obtained from or confirmed by: EMS External Record Review External record reviewed: Inpatient record Discharge Plan Discharge Clinical Impression: Near syncope Patient Disposition: Admitted As Inpatient Print Language: Icelandic
[2024-07-03] MEDS: 0.9 % Sodium Chloride 1,000 ML 999 ML IVCONT (14:42)
[2024-07-03 14:46] LABS: MANUAL DIFF FLAG NO
[2024-07-03 14:48] LABS: Basophils Percent Auto 0.1 % (0-2); Eosinophils Absolute Auto 0.3 X10*3/uL (0.0-0.4); Eosinophils Percent Auto 2.7 % (0-4); Hematocrit 45.2 % (42.0-52.0); Hemoglobin 15.7 g/dl (14.0-18.0); Imm Gran Abs Auto 0.05 X10*3/uL (0.00-0.03); Imm Gran Pct Auto 0.5 % (0.0-0.4); Lymphocytes Absolute Auto 1.8 X10*3/uL (1.2-4.9); Lymphocytes Percent Auto 16.8 % (20-40); Mean Corpuscular HGB Conc 34.7 g/dl (31.0-36.0); Mean Corpuscular Hemoglobin 31.8 pg (27.0-33.0); Mean Corpuscular Volume 91.7 fL (80.0-98.0); Mean Platelet Volume 8.5 fL (9.4-12.4); Monocytes Absolute Auto 0.8 X10*3/uL (0.1-1.2); Monocytes Percent Auto 7.4 % (2-11); Neutrophils Absolute Auto 7.6 x10*3/uL (2.0-8.3); Neutrophils Percent Auto 72.5 % (45-73); Platelet Count 237 X10*3/uL (160-400); Red Blood Count 4.93 X10*6/uL (4.60-5.80); Red Cell Distribution Width 12.4 % (11.0-16.0); White Blood Count 10.4 X10*3/uL (4.8-10.8)
[2024-07-03 15:12] LABS: Anion Gap 12 (12-20); Aspartate Amino Transferase 55 U/L (5-37); Bilirubin Total 0.5 mg/dL (0.0-1.0); Blood Urea Nitrogen 11 mg/dL (9-16); Calcium 9.6 mg/dL (8.4-10.2); Carbon Dioxide 27 mmol/L (22-29); Chloride 104 mmol/L (96-108); Creatinine Clr Calc Pharmacy 42.7; Estimated Glomerular Filt Rate > 60; Glucose Random 102 mg/dL (60-115); Potassium 4.4 mmol/L (3.3-5.1); Sodium 139 mmol/L (135-145); Total Protein 6.9 g/dL (6.5-8.0)
[2024-07-03 15:15] LABS: Alanine Aminotransferase 45 U/L (0-40); Alkaline Phosphatase 38 U/L (39-117)
[2024-07-03 15:59] LABS: Appearance Urine Clear; Color Urine Yellow; Glucose Urine UA Negative (Negative); Leukocyte Esterase Urine Negative (Negative); Nitrite Urine Negative (Negative); PH 6.5 (5.0-9.0); Urine Blood Negative (Negative); Urine Ketones Negative (Negative); Urine Protein Trace mg/dL (Neg-Trace)
[2024-07-03 16:03] LABS: Bacteria Urine None Seen (None Seen); Hyaline Casts Urine 0-2 /LPF (0-2); RBC Urine 0-2 /HPF (0-2); Squamous Epithelial Cell Urine 0-2 /HPF (0-2); WBC Urine 0-5 /HPF (0-5)
--- NOTE | 2024-07-03 16:21 | P.HPHOSP_ITS ---
History of Present Illness Date of Service: 07/03/24 Chief Complaint: blurry vision 84M pmh metastatic prostate cancer, started on Xtandi 2 weeks prior to presentation. Has been having episodes dizziness, blurriness after taking medication. Was concerned of CVA and due to listed side effects. Denies any chest pain, shortness breath, fever, chills. In ED, labs unremarkable except mildly elevated transaminases which are chronic, EKG unremarkable, UA unremarkable. Symptoms have resolved. Review of Systems 2 Review of Systems: Yes all other systems are reviewed and are negative [facility] Medical History Prostate cancer metastatic to bone Hemorrhoids Elevated PSA Surgical History Hx of prostate biopsy Social History Household Members: None Are you a primary acute care registered nurse to a significant other at home: No Do you presently have visiting nurse or other home services: No Patient Tobacco Use Status: Never used Tobacco Smoked in Last 30 Days: No Use of substances other than those prescribed or required for medical reasons: No Advance Directives: No Advance Directives Information Provided: Yes service: Yes 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 Meds Allergies Allergy/AdvReac Type Severity Reaction Status Date / Time amoxicillin [From Augmentin] Allergy Severe tongue/facial Verified 07/03/24 12:40 swelling clavulanic acid Allergy Severe tongue/facial Verified 07/03/24 12:40 [From Augmentin] swelling Active Medications: Current Medications Acetaminophen (Acetaminophen 325 Mg Tablet) 650 mg PO Q6H PRN PRN Reason: Pain, Mild (Pain Scale 1-3), fever or headache Calcium Carbonate (Calcium Carbonate 750 Mg Tab.Chew) 750 mg PO Q4H PRN PRN Reason: Heartburn Enoxaparin Sodium (Enoxaparin Sodium 40 Mg/0.4 Ml Syringe) 40 mg SUBCUT Q24H BAUTISTA Magnesium Hydroxide (Milk Of Magnesia 30 Ml Oral.Susp) 30 ml PO DAILY PRN PRN Reason: Constipation Melatonin (Melatonin 3 Mg Tablet) 6 mg PO BEDTIME PRN PRN Reason: Insomnia Sodium Chloride (0.9 % Sodium Chloride Flush 3 Ml Syringe) 3 ml IVFLUSH QSHIFT BAUTISTA Physical Exam 2 Vital Signs and Narrative: Vital Signs: Last Vital Signs Temp 97.6 F 07/03/24 12:37 Pulse 93 07/03/24 13:37 Resp 19 07/03/24 13:37 BP 164/95 H 07/03/24 13:37 Pulse Ox 98 07/03/24 13:37 O2 Del Method Room Air 07/03/24 12:37 BMI result Body Mass Index 24.2 General: AO X 3, no acute distress Resp: CTA bilateral, no accessory muscles used CVS: S1,S2,RRR GI: soft, non tender, non distended Neuro: motor grossly intact, alert Psych: appropriate affect, appropriate insight Results Labs 07/03/24 14:40 07/03/24 14:40 Labs: Laboratory Results - last 24 hr 07/03/24 07/03/24 14:40 15:50 MCV 91.7 MCH 31.8 MCHC 34.7 RDW 12.4 Plt Count 237 MPV 8.5 L Immature Gran % (Auto) 0.5 H Neut % (Auto) 72.5 Lymph % (Auto) 16.8 L [place] % (Auto) 7.4 Eos % (Auto) 2.7 Baso % (Auto) 0.1 Lymph # (Auto) 1.8 [place] # (Auto) 0.8 Eos # (Auto) 0.3 Baso # (Auto) 0.0 Abs Immat Gran (auto) 0.05 H Absolute Neuts (auto) 7.6 Absolute Nucleated RBC 0.000 Nucleated RBC % (auto) 0.0 Anion Gap 12 Estim Creat Clear Calc 42.7 Estimated GFR > 60 Random Glucose 102 Calcium 9.6 D Total Bilirubin 0.5 AST 55 H ALT 45 H Alkaline Phosphatase 38 L Troponin I High Sens 8.0 Total Protein 6.9 Albumin 4.0 Urine Color Yellow Urine Appearance Clear Urine pH 6.5 Ur Specific [employer] 1.010 Urine Protein Trace Urine Glucose (UA) Negative Urine Ketones Negative Urine Blood Negative Urine Nitrite Negative Ur Leukocyte Esterase Negative Urine RBC 0-2 Urine WBC 0-5 Ur Squamous Epith Cells 0-2 Urine Bacteria None Seen Hyaline Casts 0-2 Assessment and Plan (1) Near syncope: Status: Acute Plan 84M pmh metastatic prostate cancer presented with blurry vision/near syncope Near-syncope/blurry vision Monitor on telemetry Check MRI Possible side effect of Xtandi Metastatic prostate cancer Outpatient follow up DVT prophylaxis with Lovenox Full Code Quality Stroke Does the patient have a stroke diagnosis?: No VTE Prior VTE?: No VTE Risk Level:: Medical - moderate - high VTE Device Contraindication: Treatment Not Indicated VTE Drug Contraindication: N/A - Med Ordered
--- NOTE | 2024-07-03 17:35 | PHA.MEDREC ---
Addendum entered by Jonna Dyer [facility] 07/03/24 17:43: reviewed Original Note: Pharmacy Consult ? Medication Reconciliation Pharmacy has completed the medication reconciliation. Spoke with patient to confirm medications. Patient confirmed he is only taking Xtandi 80mg tabs and confirmed he takes 2 tabs daily and confirmed he took it this morning @1000. I asked if he takes anything else OTC or not and he states not right now.
[2024-07-03 18:33] VITALS: BP 171/100; PULSE 95; RESP 17; O2SAT 96
[2024-07-03 19:56] VITALS: BP 171/103; PULSE 96; RESP 18; TEMP 37.3; O2SAT 97
--- NOTE | 2024-07-03 20:06 | MHC.EDTECH ---
This tech took over care of pt at 1900,rounded and introduced self to pt,vitals taken,BP is elevated 171/103,RN made aware,patient ate 25% of dinner,120MLS of liquid,pt is resting quietly watching TV,call barraza in reach
--- NOTE | 2024-07-03 20:08 | PC.NURSE ---
MD made aware of BP, pt denies PRIETO/dizziness other sx, states his bp is always elevated in hospitals.
[2024-07-03] MEDS: amLODIPine Besylate 5 MG TABLET PO (20:52)
[2024-07-03 22:24] VITALS: BMI 24.9
[2024-07-03 22:25] VITALS: BP 186/96; PULSE 98; RESP 18; TEMP 36.9; O2SAT 97
[2024-07-04 03:42] VITALS: BP 163/92; PULSE 91; RESP 18; TEMP 36.9; O2SAT 97
--- NOTE | 2024-07-04 05:35 | PC.NURSE ---
pt admitted to floor from ED around 9:30pm; vital signs checked showing elevated BP, manual bp rechecked for 186/96 pt stated if he was offered any BP medication he would refuse, overnight MD made aware
[2024-07-04 07:56] LABS: Hematocrit 41.3 % (42.0-52.0); Hemoglobin 14.7 g/dl (14.0-18.0); Mean Corpuscular HGB Conc 35.6 g/dl (31.0-36.0); Mean Corpuscular Hemoglobin 32.2 pg (27.0-33.0); Mean Corpuscular Volume 90.6 fL (80.0-98.0); Mean Platelet Volume 8.7 fL (9.4-12.4); Platelet Count 237 X10*3/uL (160-400); Red Blood Count 4.56 X10*6/uL (4.60-5.80); Red Cell Distribution Width 12.2 % (11.0-16.0); White Blood Count 8.5 X10*3/uL (4.8-10.8)
[2024-07-04 08:00] VITALS: BP 160/86; PULSE 89; RESP 18; TEMP 36.5; O2SAT 97
--- NOTE | 2024-07-04 08:05 | P.CNHO_ITS ---
Subjective - Subjective Chief complaint: Consult For: Metastatic prostate carcinoma. Syncopal episode. Patient: known to practice within the last 3 years Consult date: 07/04/24 Requesting Physician: Heide. Primary Care Provider: Kashif Ly MD Family Provider: Kashif Ly MD Medical Summary: DIAGNOSIS: 1. Syncope. 2. Metastatic prostate carcinoma. HPI - Consult Narrative Reason for consult: Consult for: Metastatic prostate carcinoma. Syncope. Narrative: Harshad Salguero is a 84 year old gentleman admitted yesterday on account of syncopal episode. Patient has a history of metastatic prostate carcinoma. He had recent disease progression. He was switched over to androgen ailin, Xtandi 2 weeks ago. He has had episodes dizziness, and visual blurring, after taking medication. Was concerned of CVA and due to listed side effects. Denies any chest pain, shortness breath, fever, chills. In ED, labs unremarkable except mildly elevated transaminases which are chronic. EKG unremarkable, UA unremarkable. Symptoms have resolved. Medical History:) Prostate cancer metastatic to bone Hemorrhoids Elevated PSA Surgical History:) Hx of prostate biopsy. FAMILY HISTORY: His daughter was diagnosed with thymoma at the age of 40. She underwent thymectomy. There is a history of longevity in his family. Great aunt lived till 108. Great uncle live till 105. Mom was 102. Social History: He did several jobs. He was in the service. 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 He is . in September of last year. She had dementia and was in a intermediate. He has 2 children a boy and a girl. His daughter lives in [place] but she is very involved with his care. He has a couple of grandkids. They help out too. Household Members: None Are you a primary customer care voice consultant to a significant other at home: No Do you presently have visiting nurse or other home services: No Patient Tobacco Use Status: Never used Tobacco. Smoked in Last 30 Days: No He did not smoke himself but was exposed to secondhand smoke. He drinks wine occasionally with dinner. Use of substances other than those prescribed or required for medical reasons: No Review of Systems 2 Review of Systems: Yes all other systems are reviewed and are negative Review of Systems - Constitutional Reports no additional constitutional complaints, Reports fatigue, Reports lack of energy, Reports malaise, Reports poor appetite, Reports weight loss - Eyes Reports no additional eye complaints - ENT Reports no additional ear, nose, mouth, and throat complaints - Cardiovascular Reports no additional cardiovascular complaints - Respiratory Reports no additional respiratory complaints - Gastrointestinal Reports no additional gastrointestinal complaints - Genitourinary Genitourinary: Reports no additional male genitourinary complaints - Musculoskeletal Reports no additional musculoskeletal complaints - Integumentary/Breasts Skin/Breast: Reports no additional skin complaints - Neurologic Reports no additional neurologic complaints - Psychiatric Reports no additional psychiatric complaints - Endocrine Reports no additional endocrine complaints - Hematologic/Lymphatic Reports no additional hematologic/lymphatic complaints - Allergic/Immunologic Reports no additional allergic/immunologic complaints Oncology Screenings - ECOG Performance Status ECOG Performance Status: 1 [facility] Medical History: Medical History (Last Reviewed 07/03/24 @ 16:24 by Mason Zamora MD) Elevated PSA Hemorrhoids Prostate cancer metastatic to bone Functional capacity: uses cane/walker Patient : No Surgical History: Surgical History (Last Reviewed 07/03/24 @ 16:24 by Mason Zamora MD) Hx of prostate biopsy Social History: Social History (Last Reviewed 07/03/24 @ 16:24 by Mason Zamora MD) Living Situation History: Household Members: None Are you a primary customer care voice consultant to a significant other at home: No Do you presently have visiting nurse or other home services: No Tobacco History: Patient Tobacco Use Status: Never used Tobacco 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 Home Medications and Allergies Current Medications: Current Medications Acetaminophen (Acetaminophen 325 Mg Tablet) 650 mg PO Q6H PRN PRN Reason: Pain, Mild (Pain Scale 1-3), fever or headache Amlodipine Besylate (Amlodipine Besylate 5 Mg Tablet) 5 mg PO BEDTIME [facility]; Protocol Last Admin: 07/03/24 20:52 Dose: 5 mg Calcium Carbonate (Calcium Carbonate 750 Mg Tab.Chew) 750 mg PO Q4H PRN PRN Reason: Heartburn Enoxaparin Sodium (Enoxaparin Sodium 40 Mg/0.4 Ml Syringe) 40 mg SUBCUT Q24H [facility] Magnesium Hydroxide (Milk Of Magnesia 30 Ml Oral.Susp) 30 ml PO DAILY PRN PRN Reason: Constipation Melatonin (Melatonin 3 Mg Tablet) 6 mg PO BEDTIME PRN PRN Reason: Insomnia Patient Own ( Enzalutamide [Xtandi ] 80 Mg Tablet) 160 mg PO DAILY [facility] Sodium Chloride (0.9 % Sodium Chloride Flush 3 Ml Syringe) 3 ml IVFLUSH QSHIFT [facility] Last Admin: 07/03/24 23:09 Dose: Not Given Allergies Allergy/AdvReac Type Severity Reaction Status Date / Time amoxicillin [From Augmentin] Allergy Severe tongue/facial Verified 07/03/24 12:40 swelling clavulanic acid Allergy Severe tongue/facial Verified 07/03/24 12:40 [From Augmentin] swelling Physical Exam Vital signs: Vital Signs Temp 98.5 F 07/04/24 03:42 Pulse 91 07/04/24 03:42 Resp 18 07/04/24 03:42 BP 163/92 H 07/04/24 03:42 Pulse Ox 97 07/04/24 03:42 O2 Del Method Room Air 07/04/24 03:42 Intake & Output 07/03/24 07/04/24 07/04/24 18:59 06:59 18:59 Intake Total 1000 / 1480 480 / 1480 Output Total 0 / 0 Balance 1000 / 1480 480 / 1480 Urine Output (Average ml/kg/hr) 0.00 Intake: Intake, Oral Amount 480 / 480 Intake, IV Amount 1000 / 1000 0.9 % Sodium Chloride 1,000 ml 1000 / 1000 @ 999 mls/hr IVCONT .Q1H1M [facility] Rx#:[id number] Output: Output, Urine Amount 0 / 0 Output, Stool Amount 0 / 0 Other: Dinner % Eaten 25% Number of Incontinent Voids 0 Number of Unmeasured Voids 3 Number of Bowel Movements 0 Last Bowel Movement 07/03/24 Weight 68.039 kg 70 kg [employer] Weight in Grams 09221 Weight 70 kg - Constitutional Present: mild distress - Routine HEENT Exam Head: Present: normal inspection, normocephalic Eye: Present: normal appearance ENT: Present: mucous membranes moist - Routine Neck Exam Present: supple - Routine Respiratory Exam Present: CTAB - Routine Cardiovascular Exam Cardiovascular: Present: RRR, S1, S2 - Routine Abdominal Exam Present: soft, nontender - Routine Extremities Exam Present: nontender - Routine Skin Exam Present: intact, normal turgor Hem/Onc Consult Result - Labs CBC & Chem 7: 07/04/24 07:08 07/04/24 07:08 Labs: Short CBC 07/03/24 07/04/24 Range/Units 14:40 07:08 WBC 10.4 8.5 (4.8-10.8) X10*3/uL Hgb 15.7 14.7 (14.0-18.0) g/dl Hct 45.2 41.3 L (42.0-52.0) % Plt Count 237 237 (160-400) X10*3/uL BMP 07/03/24 14:40 Sodium 139 Potassium 4.4 Chloride 104 Carbon Dioxide 27 BUN 11 Creatinine 1.12 Calcium 9.6 D Liver Function 07/03/24 Range/Units 14:40 Total Bilirubin 0.5 (0.0-1.0) mg/dL AST 55 H (5-37) U/L ALT 45 H (0-40) U/L Alkaline Phosphatase 38 L (39-117) U/L Albumin 4.0 (3.5-5.0) g/dL Urine 07/03/24 Range/Units 15:50 Urine Color Yellow Urine Appearance Clear Urine pH 6.5 (5.0-9.0) Ur Specific [place] 1.010 (1.005-1.025) Urine Protein Trace (Neg-Trace) mg/dL Urine Glucose (UA) Negative (Negative) mg/dL Assessment and Plan Patient Active problem list reviewed?: Yes (1) Prostate cancer metastatic to bone Status: Acute Assessment and plan: This is a pleasant 84-year-old gentleman with a diagnosis of metastatic prostate carcinoma with extensive bone metastases, in July of this year. He was seen by Urology. He was started on Casodex. PSA had declined from 105 to 23.7. He received Lupron and Denosumab at Dr. Mi's office, on 09/07/23. The abiraterone and prednisone were ordered. He started these end of August. CT scan of the abdomen pelvis from 09/09/23: In continuity with enlarged heterogeneous prostate and in intimate association with the anterior and lateral rectal mckinnon, hyperenhancing abnormal lobulated soft tissue density is demonstrated. It is unclear if this originates within the prostate with perirectal extension versus primary rectal pathology. Likely related bilateral pelvic sidewall lymph nodes with similar hyper attenuating appearance. He had a bone scan done on 01/11/24 which revealed: Essentially stable abnormalities are noted at multiple sites, as described above and these remain very suspicious for metastatic tumor involvement of bone. A Fluorine 18 PSMA PET/CT scan may be of additional diagnostic value in characterizing these abnormalities, as well as detecting soft tissue metastases not visible on a bone scan. CT of the pelvis was done on 02/28. The results: The prostate gland has an unremarkable, un enhanced appearance. No discrte lesion seen. No local nor distant spread is noted. His PSA level started creeping up. Up to 22.7. Bone scan from 06/30 revealed: Metastatic tumor involvement of bone with progression in the bone scan appearance compared to 01/11/2024. I discussed that with him and his daughter. Offered systemic chemotherapy, cabazitaxel as the next line of treatment. He was reluctant to go onto chemotherapy since he said he would have a hard time tolerating it. One other option was to switch to enzalutamide. In recent studies it has been shown to be more effective when it is given after abiraterone then the reverse sequence. It has shown at least several months of PSA responses. He was given written information about enzalutamide and cabazitaxel. He started enzalutamide 160 mg daily a couple of weeks. He was to stop the abiraterone and gradually taper off the steroids. To cut down prednisone to 5 mg once a day for couple of weeks and then every other day, before stopping it. He received cycle 10 of his Denosumab on 05/24. He was advised to continue on the Lupron, his 1st dose was given on 09/18/[address] Mi's office. He received his 2nd dose 03/20. Next dose will be in August of next year. Patient has had dizziness, blurred vision and near-syncope. Concern is if this is related to being off the steroids, or medication side effect. Other concern in this 84-year-old would be a cardiac arrhythmia, brain metastases, a neurological event, CVA. MRI from 07/03 revealed: 1. No acute intracranial abnormalities. 2. Moderate to extensive chronic white matter changes. 3. Marrow replacing lesion within the C2 base consistent with metastatic disease. Fortunately there is no evidence of brain metastases. PLAN: He is being monitored, on telemetry. Would proceed with cosyntropin stimulation test. Give low-dose steroids. Hold the Xtandi for now. Thank you for this consult, I will follow along with you, CC: Dr. Ly. - Time Spent With Patient Time Spent with Patient (in minutes): 30
[2024-07-04] MEDS: 0.9 % Sodium Chloride Flush 3 ML SYRINGE IVFLUSH (08:09)
[2024-07-04 08:24] LABS: Anion Gap 14 (12-20); Blood Urea Nitrogen 8 mg/dL (9-16); Chloride 106 mmol/L (96-108); Creatinine Clr Calc Pharmacy 50.3; Estimated Glomerular Filt Rate > 60; Glucose Random 96 mg/dL (60-115); Potassium 3.6 mmol/L (3.3-5.1); Sodium 137 mmol/L (135-145)
[2024-07-04 08:33] LABS: Calcium 8.9 mg/dL (8.4-10.2); Carbon Dioxide 22 mmol/L (22-29)
[2024-07-04 09:52] VITALS: BP 169/94; PULSE 88
[2024-07-04 11:17] VITALS: BP 156/93; BP 165/97; BP 169/94; PULSE 111; PULSE 88; PULSE 97; RESP 18; TEMP 36.9; O2SAT 96
--- NOTE | 2024-07-04 13:18 | P.PNIM_ITS ---
Subjective Subjective Date of Service: 07/04/24 Interval History: metastatic cancer Review of Systems seems symptoms imrpoving Physical Exam 2 Vital Signs: Vital Signs: Last Vital Signs Temp 98.4 F 07/04/24 11:17 Pulse 88 07/04/24 11:17 Resp 18 07/04/24 11:17 BP 169/94 H 07/04/24 11:17 Pulse Ox 96 07/04/24 11:17 O2 Del Method Room Air 07/04/24 11:17 BMI result Body Mass Index 24.9 General: AO X 3, no acute distress Resp: CTA bilateral. CVS: S1,S2,RRR GI: soft, non tender, non distended Neuro: motor grossly intact, alert Psych: appropriate affect, appropriate insight Objective Data Active Medications Acetaminophen (Acetaminophen 325 Mg Tablet) 650 mg PO Q6H PRN PRN Reason: Pain, Mild (Pain Scale 1-3), fever or headache Amlodipine Besylate (Amlodipine Besylate 5 Mg Tablet) 5 mg PO BEDTIME [facility]; Protocol Last Admin: 07/03/24 20:52 Dose: 5 mg Documented By: KAT Calcium Carbonate (Calcium Carbonate 750 Mg Tab.Chew) 750 mg PO Q4H PRN PRN Reason: Heartburn Enoxaparin Sodium (Enoxaparin Sodium 40 Mg/0.4 Ml Syringe) 40 mg SUBCUT Q24H [facility] Last Admin: 07/04/24 08:11 Dose: Not Given Documented By: PETR Non-Admin Reason: Patient Refused Magnesium Hydroxide (Milk Of Magnesia 30 Ml Oral.Susp) 30 ml PO DAILY PRN PRN Reason: Constipation Melatonin (Melatonin 3 Mg Tablet) 6 mg PO BEDTIME PRN PRN Reason: Insomnia Patient Own ( Enzalutamide [Xtandi ] 80 Mg Tablet) 160 mg PO DAILY [facility] Last Admin: 07/04/24 13:06 Dose: Not Given Documented By: PETR Non-Admin Reason: Patient Refused Sodium Chloride (0.9 % Sodium Chloride Flush 3 Ml Syringe) 3 ml IVFLUSH QSHIFT [facility] Last Admin: 07/04/24 08:09 Dose: 3 ml Documented By: PETR Labs 07/04/24 07:08 07/04/24 07:08 Labs: Laboratory Results - last 24 hr 07/03/24 07/03/24 07/04/24 14:40 15:50 07:08 MCV 91.7 90.6 MCH 31.8 32.2 MCHC 34.7 35.6 RDW 12.4 12.2 Plt Count 237 237 MPV 8.5 L 8.7 L Immature Gran % (Auto) 0.5 H Neut % (Auto) 72.5 Lymph % (Auto) 16.8 L [place] % (Auto) 7.4 Eos % (Auto) 2.7 Baso % (Auto) 0.1 Lymph # (Auto) 1.8 [place] # (Auto) 0.8 Eos # (Auto) 0.3 Baso # (Auto) 0.0 Abs Immat Gran (auto) 0.05 H Absolute Neuts (auto) 7.6 Absolute Nucleated RBC 0.000 0.000 Nucleated RBC % (auto) 0.0 0.0 Anion Gap 12 14 Estim Creat Clear Calc 42.7 50.3 Estimated GFR > 60 > 60 Random Glucose 102 96 Calcium 9.6 D 8.9 D Total Bilirubin 0.5 AST 55 H ALT 45 H Alkaline Phosphatase 38 L Troponin I High Sens 8.0 Total Protein 6.9 Albumin 4.0 Urine Color Yellow Urine Appearance Clear Urine pH 6.5 Ur Specific [place] 1.010 Urine Protein Trace Urine Glucose (UA) Negative Urine Ketones Negative Urine Blood Negative Urine Nitrite Negative Ur Leukocyte Esterase Negative Urine RBC 0-2 Urine WBC 0-5 Ur Squamous Epith Cells 0-2 Urine Bacteria None Seen Hyaline Casts 0-2 Assessment and Plan Plan 84M pmh metastatic prostate cancer presented with blurry vision/near syncope Near-syncope/blurry vision Monitor on telemetry MRI-Marrow replacing lesion within the C2 base consistent with metastatic disease. Possible side effect of Xtandi Metastatic prostate cancer Outpatient follow up DVT prophylaxis with Lovenox Full Code ongoing need for stay- Quality Stroke Does the patient have a stroke diagnosis?: No VTE Prior VTE?: No VTE Risk Level:: Medical - moderate - high VTE Device Contraindication: Treatment Not Indicated VTE Drug Contraindication: N/A - Med Ordered
[2024-07-04 14:02] VITALS: PULSE 88; O2SAT 96
--- NOTE | 2024-07-04 14:36 | PM.DS ---
DS: Providers Provider Date of Service: 07/04/24 Date of admission: 07/03/24 16:18 Date of discharge: 07/04/24 Primary care physician: Kashif Ly MD Consults: 07/04/24 07:25 Consult to Hematology / Oncology Routine [place] [facility] [place] Reason for consultation: metastatic prostate cancer Has provider been notified: No Attending physician on discharge: James Santana Discharging clinician: James Santana DS: Diagnosis Discharge Diagnosis (1) Prostate cancer metastatic to bone: Status: Acute DS: Summary Hospital Course Hospital Course: HPI:84M pmh metastatic prostate cancer, started on Xtandi 2 weeks prior to presentation. Has been having episodes dizziness, blurriness after taking medication. Was concerned of CVA and due to listed side effects. Denies any chest pain, shortness breath, fever, chills. In ED, labs unremarkable except mildly elevated transaminases which are chronic, EKG unremarkable, UA unremarkable. Symptoms have resolved. Hospital course: Patient came to the hospital because has episode of dizziness and blurred vision after taking his medication for prostate cancer-his brain MRI seems negative except possibleMarrow replacing lesion within the C2 base consistent with metastatic disease, orthostatic negative, telemetry seems fine. Patient seems asymptomatic, no new complaints. Discussed with the Oncology about MRI results above-recommended outpatient follow-up and hold off on Xtandi until seen by Oncology. plan: Hold Xtandi until seen by oncology Dr. White's office. follow up with pcp. Recommended to take it slow -walk slowly, if any new dizziness or any new symptoms go to the nearest emergency room. Assessment and plan coordination time spent 40 minute. Time Attestation Total time managing care of this patient today: 40 mintues. Discharge Coordination Time (in mins): 40 min Quality: Safe Use of Opioids Does Pt have an Active Cancer Diagnosis on the Problem List?: No Quality: Stroke Does the patient have a stroke diagnosis?: No Physical Exam Vital Signs: Vital Signs: Last Vital Signs Temp 98.4 F 07/04/24 11:17 Pulse 88 07/04/24 14:02 Resp 18 07/04/24 11:17 BP 169/94 H 07/04/24 11:17 Pulse Ox 96 07/04/24 14:02 O2 Del Method Room Air 07/04/24 11:17 BMI result Body Mass Index 24.9 General: AO X 3, no acute distress Resp: CTA bilateral. CVS: S1,S2,RRR GI: soft, non tender, non distended Neuro: motor grossly intact, alert Psych: appropriate affect, appropriate insight DS: Data Data Completed and Pending Labs on day of discharge: Laboratory Results - last 24 hr 07/03/24 07/03/24 07/04/24 14:40 15:50 07:08 WBC 10.4 8.5 RBC 4.93 4.56 L Hgb 15.7 14.7 Hct 45.2 41.3 L MCV 91.7 90.6 MCH 31.8 32.2 MCHC 34.7 35.6 RDW 12.4 12.2 Plt Count 237 237 MPV 8.5 L 8.7 L Immature Gran % (Auto) 0.5 H Neut % (Auto) 72.5 Lymph % (Auto) 16.8 L [place] % (Auto) 7.4 Eos % (Auto) 2.7 Baso % (Auto) 0.1 Lymph # (Auto) 1.8 [place] # (Auto) 0.8 Eos # (Auto) 0.3 Baso # (Auto) 0.0 Abs Immat Gran (auto) 0.05 H Absolute Neuts (auto) 7.6 Absolute Nucleated RBC 0.000 0.000 Nucleated RBC % (auto) 0.0 0.0 Sodium 139 137 Potassium 4.4 3.6 Chloride 104 106 Carbon Dioxide 27 22 Anion Gap 12 14 BUN 11 8 L Creatinine 1.12 0.95 Estim Creat Clear Calc 42.7 50.3 Estimated GFR > 60 > 60 Random Glucose 102 96 Calcium 9.6 D 8.9 D Total Bilirubin 0.5 AST 55 H ALT 45 H Alkaline Phosphatase 38 L Troponin I High Sens 8.0 Total Protein 6.9 Albumin 4.0 Urine Color Yellow Urine Appearance Clear Urine pH 6.5 Ur Specific [place] 1.010 Urine Protein Trace Urine Glucose (UA) Negative Urine Ketones Negative Urine Blood Negative Urine Nitrite Negative Ur Leukocyte Esterase Negative Urine RBC 0-2 Urine WBC 0-5 Ur Squamous Epith Cells 0-2 Urine Bacteria None Seen Hyaline Casts 0-2 Imaging Chest x-ray: Radiologist's impression: ITS Impressions Chest X-Ray 07/03/24 14:29 IMPRESSION: No active disease. No change. Electronically signed by: Miguel Ángel Hall MD 07/03/2024 04:26 PM EST RP Brain MRI 07/03/24 17:58 IMPRESSION: 1. No acute intracranial abnormalities. 2. Moderate to extensive chronic white matter changes. 3. Marrow replacing lesion within the C2 base consistent with metastatic disease. Electronically signed by: Ramakrishna Watermankevin BENAVIDEZ 07/03/2024 07:22 PM EST RP Discharge Plan Discharge Anticipated Discharge Date/Time: 07/04/24 14:29 Patient Disposition: Home, Self-Care Discharge Diagnosis: dizziness ,prostate cancer possibleMarrow replacing lesion within the C2 base consistent with metastatic disease. Referrals: Kashif Ly MD [Primary Care Provider] - 1 Week Discharge Medications: Held Xtandi 80 mg Tablet 160 mg PO DAILY Qty: 60 3RF Hold Instructions: Resume on 07/10/24. hold until seen by oncology Discharge Orders: Discharge Order (Routine); Ordered 07/04/24 Ordered By: James Santana Diet: Advance to usual diet Activity on Discharge: As tolerated Stand Alone Forms: Patient Portal Discharge page Print Language: Swedish Care Plan Goals: Patient came to the hospital because has episode of dizziness and blurred vision after taking his medication for prostate cancer-his brain MRI seems negative except possibleMarrow replacing lesion within the C2 base consistent with metastatic disease, orthostatic negative, telemetry seems fine. Patient seems asymptomatic, no new complaints. Discussed with the Oncology about MRI results above-recommended outpatient follow-up and hold off on Xtandi until seen by Oncology. Health Concerns: As above. Plan of Treatment: follow up with pcp and oncology Dr white's office. Assessment: As above.
--- NOTE | 2024-07-04 14:47 | MHC.CM.PN ---
Addendum entered by Cheri Boyce 07/04/24 14:48: Pt is medically cleared for discharge home self-care today, pts son to transport him home. Original Note: IMM 07/04. Pt self-care, lives alone at home. Pts son to transport him home at discharge. HCP copy requested. PCP: Dr. Kashif Ly
== END 2024-07-04 14:50 | disposition home or self-care (01) ==
LOC: HO.ED 16:12 → HO.IMC 07-04 07:03 → HO.EDOVER 07-04 12:22
PROVIDERS: Admitting Provider Internal Medicine; Emergency Provider Emergency Medicine; PCP Internal Medicine; Visit Provider Internal Medicine
DX: R55 Syncope and collapse (principal); C61 Malignant neoplasm of prostate; C79.51 Secondary malignant neoplasm of bone; R07.9 Chest pain, unspecified; R74.01 Elevation of levels of liver transaminase levels; H53.8 Other visual disturbances; Z79.899 Other long term (current) drug therapy
CPT/HCPCS: 36415; 70551; 71045; 80048; 80053; 81001; 84484; 85025; 85027; 93005; 96360; 96361; 97162; 99222; 99285

== ENCOUNTER → 2024-07-03 14:15 | Outpatient (BNV) | payer MEDICARE, OTHER, SELFPAY | PROVIDERS: Admitting Provider Internal Medicine; Emergency Provider Emergency Medicine; PCP Internal Medicine; Visit Provider Internal Medicine Cardiovascular Disease | DX: R07.9 Chest pain, unspecified (principal); R94.31 Abnormal electrocardiogram [ECG] [EKG] | CPT/HCPCS: 93010 ==

== ENCOUNTER → 2024-07-03 14:15 | Outpatient (BNV) | payer MEDICARE, OTHER, SELFPAY | PROVIDERS: Admitting Provider Internal Medicine; Emergency Provider Emergency Medicine; PCP Internal Medicine; Visit Provider Radiology Diagnostic Radiology | DX: R07.9 Chest pain, unspecified (principal) | CPT/HCPCS: 71045 ==

== ENCOUNTER → 2024-07-03 16:18 | Outpatient (BNV) | payer MEDICARE, OTHER, SELFPAY | PROVIDERS: Admitting Provider Internal Medicine; Emergency Provider Emergency Medicine; PCP Internal Medicine; Visit Provider Internal Medicine Medical Oncology | DX: C61 Malignant neoplasm of prostate (principal); C79.51 Secondary malignant neoplasm of bone | CPT/HCPCS: 99222 ==

== ENCOUNTER → 2024-07-03 16:18 | Outpatient (BNV) | payer MEDICARE, OTHER, SELFPAY | PROVIDERS: Admitting Provider Internal Medicine; Emergency Provider Emergency Medicine; PCP Internal Medicine; Visit Provider Internal Medicine | DX: C61 Malignant neoplasm of prostate (principal); C79.51 Secondary malignant neoplasm of bone | CPT/HCPCS: 99222; 99499 ==

== ENCOUNTER 2024-07-04 16:36 | Inpatient (IN) | payer MEDICARE, OTHER, SELFPAY ==
[2024-07-04] VITALS (7 sets, daily range): BP systolic 149–179; BP diastolic 84–102; PULSE 82–103; RESP 18–20; TEMP 36.6–36.7; O2SAT 94–98; BMI 25.1
--- NOTE | 2024-07-04 17:02 | ECG_ITS ---
Test Reason : SYNCOPE Blood Pressure : / mmHG Vent. Rate : 091 BPM Atrial Rate : 091 BPM P-R Int : 142 ms QRS Dur : 088 ms QT Int : 394 ms P-R-T Axes : 042 027 041 degrees QTc Int : 484 ms Normal sinus rhythm Prolonged QT Abnormal ECG When compared with ECG of 03-JUL-2024 15:15, No significant change was found Referred By: Ashly Singh Electronically Signed By:TOMMY BABCOCK MD
[2024-07-04 17:29] LABS: MANUAL DIFF FLAG NO
--- NOTE | 2024-07-04 17:31 | ED_ITS ---
HPI - Syncope General Chief Complaint: Syncope Stated Complaint: syncopal episode,diaphoretic Time Seen by Provider: 07/04/24 16:42 Source: patient, family and EMS Mode of arrival: EMS Limitations: no limitations History of Present Illness ED Provider: magali klein NP HPI narrative: Patient is an 84-year-old male who presents emergency department via EMS for evaluation after witnessed syncopal episode at home. Patient reports that he was sitting down in a chair, at the counter speaking with his son as well as a neighbor. He said that he suddenly began feeling weak, tired. He began to get a warm feeling and feeling clammy. He felt like he was going to pass out. He laid his head onto the counter and son reports that lost consciousness that lasted approximately 1 minute. He arouses somewhat and was quite groggy not really making much sense then lost consciousness again for approximately 1 minute. He was not really making any sense until EMS arrived. On their arrival he was alert and oriented, talking with clear speech. He states that once he came to he was feeling nauseous but has not been experiencing any vomiting. He reports that he was just discharged this afternoon from [facility] for ongoing dizziness and blurry vision episodes, he was not long before the symptoms occurred. Related Data Previous Rx's ?Medication ?Instructions ?Recorded enzalutamide 80 mg tablet (Xtandi) 160 mg (2 x 80 mg) PO DAILY #60 05/24/24 tabs Allergies Allergy/AdvReac Type Severity Reaction Status Date / Time amoxicillin [From Augmentin] Allergy Severe tongue/facial Verified 07/04/24 16:56 swelling clavulanic acid Allergy Severe tongue/facial Verified 07/04/24 16:56 [From Augmentin] swelling Review of Systems 2 Review of Systems: Yes all other systems are reviewed and are negative [facility] Past Medical History Attestation statement: The following information was validated with the patient. Source: old records reviewed Medical History Prostate cancer metastatic to bone Hemorrhoids Elevated PSA Surgical History Hx of prostate biopsy Social History Social History Household Members: None Are you a primary daycare teacher to a significant other at home: No Do you presently have visiting nurse or other home services: No Patient Tobacco Use Status: Never used Tobacco Smoked in Last 30 Days: No Use of substances other than those prescribed or required for medical reasons: No Advance Directives: No Advance Directives Information Provided: No Do you have a plan to hurt others: No Plan Nutrition Risks: No Nutritional Risk service: No 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 No acute distress.?Normal affect. Eyes: Pupils equal, round and reactive to light.? EOMI. No nystagmus. ENT: Pharynx normal.?? Neck: Normal inspection.? Neck supple.??Full range of motion. No rigidity. CVS: Heart sounds normal. Normal heart rate and rhythm.? Pulses normal.?? Respiratory: No respiratory distress.? Lung sounds clear to auscultation bilaterally?? Abdomen: Soft and non-tender. Normoactive bowel sounds. No pulsatile mass.?? Skin: Skin warm and dry.? Normal skin color.? ? Extremities: No lower extremity edema.? No calf ttp? Neuro: Moves all extremities spontaneously. Sensation intact bilaterally. CN II- XII intact. No focal neuro deficits. Ambulates with normal steady gait. Medications Administered Generic Name Dose Route Start Last Admin Trade Name Freq PRN Reason Stop Dose Admin Enoxaparin Sodium 40 mg 07/04/24 21:00 07/04/24 21:28 Enoxaparin Sodium 40 Mg/0.4 Ml Syringe SUBCUT 40 mg Q24H BAUTISTA Administration Sodium Chloride 3 ml 07/05/24 00:00 07/04/24 23:11 0.9 % Sodium Chloride Flush 3 Ml Syringe IVFLUSH 3 ml QSHIFT BAUTISTA Administration Medical Decision Making Medical Decision Making [facility] Narrative: Patient is an 84-year-old male with past medical history of metastatic prostate cancer started on Xtandi 2 weeks ago. He has been having intermittent episodes of dizziness and blurred vision after taking the medication. He had a syncopal episode today as per HPI. History concerning for a possible cardiac etiology versus neurological. On review of medical records patient was discharged from [facility] earlier this afternoon. Xtandi placed on hold until evaluated by Oncology Dr. Klein's office. MRI today felt to be negative except possible marrow replacing lesion within the C2 base consistent with metastatic disease, orthostatic vital signs were negative, telemetry monitoring appeared unremarkable patient remained asymptomatic in he was ultimately discharged. Given his recent hospitalization, and prompt return due to syncope feel that he would benefit from inpatient admission further cardiac evaluation echocardiogram, possibly establishing Holter monitoring QTC. He has no associated headache to suggest SAH, CVA, basilar insufficiency. EKG at this time appearing nonischemic with normal sinus rhythm, ventricular rate of 91, normal GARETT, no ST elevation, no ST depression, prolonged QT at 484 MS, magnesium level within normal range. CBC without leukocytosis anemia or thrombocytopenia. No electrolyte derangement. No LIBBY. LFTs overall unremarkable. High sensitive troponin within normal range at 7.6. BNP not notably elevated to suggest CHF. Viral serologies negative. No history of seizure disorder, no bladder bowel incontinence during this episode. Orthostatic hypotension today. Differential Diagnosis Differential Diagnoses: The differential diagnosis associated with the presentation includes (See narrative above) Admission/Observation Consideration of admission/observation: Escalation of care including admission/observation considered (Admission to medicine service, spoke with hospitalist Dr. Fareed Solano.) Consult Healthcare Provider Management of the patient was discussed with: Hospitalist Lab Data MDM Lab Attestation statement: I reviewed the patient's lab results. (See narrative above) 07/04/24 17:12 07/04/24 17:12 Labs: Lab Results 07/04/24 Range/Units 17:12 WBC 9.0 (4.8-10.8) X10*3/uL RBC 5.01 (4.60-5.80) X10*6/uL Hgb 15.8 (14.0-18.0) g/dl Hct 46.1 (42.0-52.0) % MCV 92.0 (80.0-98.0) fL MCH 31.5 (27.0-33.0) pg MCHC 34.3 (31.0-36.0) g/dl RDW 12.3 (11.0-16.0) % Plt Count 249 (160-400) X10*3/uL MPV 8.5 L (9.4-12.4) fL Immature Gran % (Auto) 0.4 (0.0-0.4) % Neut % (Auto) 71.3 (45-73) % Lymph % (Auto) 17.4 L (20-40) % [place] % (Auto) 8.2 (2-11) % Eos % (Auto) 2.6 (0-4) % Baso % (Auto) 0.1 (0-2) % Lymph # (Auto) 1.6 (1.2-4.9) X10*3/uL [place] # (Auto) 0.7 (0.1-1.2) X10*3/uL Eos # (Auto) 0.2 (0.0-0.4) X10*3/uL Baso # (Auto) 0.0 (0.0-0.2) X10*3/uL Abs Immat Gran (auto) 0.04 H (0.00-0.03) X10*3/uL Absolute Neuts (auto) 6.4 (2.0-8.3) x10*3/uL Absolute Nucleated RBC 0.000 (0.0-0.012) X10*3/uL Nucleated RBC % (auto) 0.0 (0.0-0.2) /100WBC PT 12.6 H (10.9-12.4) SEC INR 1.1 (0.9-1.1) Sodium 138 (135-145) mmol/L Potassium 4.0 (3.3-5.1) mmol/L Chloride 105 (96-108) mmol/L Carbon Dioxide 22 (22-29) mmol/L Anion Gap 15 (12-20) BUN 10 (9-16) mg/dL Creatinine 1.06 (0.5-1.4) mg/dL Estim Creat Clear Calc 53.2 Estimated GFR > 60 Random Glucose 131 H (60-115) mg/dL Calcium 9.1 (8.4-10.2) mg/dL Magnesium 2.1 (1.6-2.6) mg/dL Total Bilirubin 0.6 (0.0-1.0) mg/dL AST 53 H (5-37) U/L ALT 39 (0-40) U/L Alkaline Phosphatase 40 (39-117) U/L Troponin I High Sens 7.6 (<3.5-35.0) ng/L B-Natriuretic Peptide 115 H (<100) pg/mL Total Protein 6.7 (6.5-8.0) g/dL Albumin 3.9 (3.5-5.0) g/dL Lipase 21 (8-78) U/L Influenza Type A (PCR) NEGATIVE (Negative) Influenza Type B (PCR) NEGATIVE (Negative) RSV RNA Qual (PCR) NEGATIVE (Negative) SARS-CoV-2 RNA (RT-PCR) NEGATIVE (Negative) Independent Interpretation I performed an independent interpretation of an: EKG (See narrative above) Independent Historian Clinical information obtained from an independent historian. History obtained from or confirmed by: EMS and Other (Son) External Record Review External record reviewed: Inpatient record (See narrative above) Tests considered The following testing was considered but not selected: See narrative above Discharge Plan Discharge Clinical Impression: Syncope Qualifiers: Syncope type: unspecified Qualified Code(s): R55 - Syncope and collapse Patient Disposition: Admitted As Inpatient Interventions: Admission Worksheet (ED) Last Done: 07/04/24 21:38
[2024-07-04 17:37] LABS: INTERNATIONAL NORM RATIO 1.1 (0.9-1.1); Prothrombin Time 12.6 SEC (10.9-12.4)
[2024-07-04 17:44] LABS: Basophils Percent Auto 0.1 % (0-2); Eosinophils Absolute Auto 0.2 X10*3/uL (0.0-0.4); Eosinophils Percent Auto 2.6 % (0-4); Hematocrit 46.1 % (42.0-52.0); Hemoglobin 15.8 g/dl (14.0-18.0); Imm Gran Abs Auto 0.04 X10*3/uL (0.00-0.03); Imm Gran Pct Auto 0.4 % (0.0-0.4); Lymphocytes Absolute Auto 1.6 X10*3/uL (1.2-4.9); Lymphocytes Percent Auto 17.4 % (20-40); Mean Corpuscular HGB Conc 34.3 g/dl (31.0-36.0); Mean Corpuscular Hemoglobin 31.5 pg (27.0-33.0); Mean Platelet Volume 8.5 fL (9.4-12.4); Monocytes Absolute Auto 0.7 X10*3/uL (0.1-1.2); Monocytes Percent Auto 8.2 % (2-11); Neutrophils Absolute Auto 6.4 x10*3/uL (2.0-8.3); Neutrophils Percent Auto 71.3 % (45-73); Platelet Count 249 X10*3/uL (160-400); Red Blood Count 5.01 X10*6/uL (4.60-5.80); Red Cell Distribution Width 12.3 % (11.0-16.0)
[2024-07-04 17:48] LABS: Albumin Level 3.9 g/dL (3.5-5.0); Anion Gap 15 (12-20); Aspartate Amino Transferase 53 U/L (5-37); Bilirubin Total 0.6 mg/dL (0.0-1.0); Blood Urea Nitrogen 10 mg/dL (9-16); Calcium 9.1 mg/dL (8.4-10.2); Carbon Dioxide 22 mmol/L (22-29); Chloride 105 mmol/L (96-108); Creatinine Clr Calc Pharmacy 53.2; Estimated Glomerular Filt Rate > 60; Glucose Random 131 mg/dL (60-115); Lipase 21 U/L (8-78); Magnesium 2.1 mg/dL (1.6-2.6); Sodium 138 mmol/L (135-145); Total Protein 6.7 g/dL (6.5-8.0)
[2024-07-04 17:50] LABS: B Type Natriuretic Peptide 115 pg/mL (<100)
[2024-07-04 17:52] LABS: Troponin-I High Sensitivity 7.6 ng/L (<3.5-35.0)
[2024-07-04 18:12] LABS: Alanine Aminotransferase 39 U/L (0-40); Alkaline Phosphatase 40 U/L (39-117)
[2024-07-04 18:18] LABS: Influenza A PCR NEGATIVE (Negative); Influenza B PCR NEGATIVE (Negative); Resp Syncy Virus RNA Qual PCR NEGATIVE (Negative); SARS COV2 PCR INHOUSE NEGATIVE (Negative)
--- NOTE | 2024-07-04 20:28 | PC.NURSE ---
patient awake and alert. skin pwd, resp even and non labored. speaking in full, clear sentences. denies dizziness. NSR via tele. patient aware of plan of care for admission. patient okay to eat and drink per PA, patient given a sandwich and water.
--- NOTE | 2024-07-04 20:50 | P.HPHOSP_ITS ---
History of Present Illness Date of Service: 07/04/24 Attending physician on admission: Justina Solano Chief Complaint: syncope Patient is an 84-year-old male with a past medical history significant for metastatic prostate cancer, started on Xtandi 2 weeks ago, who reported back to the ED after being discharged earlier today for 2 additional syncopal episodes. He reports episodes of dizziness and blurry vision after taking the medication. He was recently admitted 07/03/24 and monitored on telemetry which was unremarkable. He also had an MRI which showed metastasis to C2. The near syncopal events at that time were suggested to be a possible side effect from Xtandi. The patient reports that 1 hour after he got home today he was sitting down having a conversation and felt nauseous followed by a syncopal episode. He did not fall or hit his head. There was no incontinence or seizure-like activity, all was witnessed. After about 1 minute they were able to arouse him and then he again had a repeat syncopal episode. After that he was brought back to the ED. He has not had any further episodes since. He denies any fever, chills, abdominal pain, diarrhea or vomiting. He does report he has not been eating or drinking much since his hospital stay. Review of Systems 2 Constitutional: Constitutional: Denies chills, Denies fatigue, Denies fever(s) and Denies headache(s) Eyes: Eyes: Reports blurry vision ENT: Denies headache(s), Denies nasal congestion, Denies nasal discharge and Denies sore throat Cardiovascular: Cardiovascular: Denies chest pain, Denies rapid heart rate, Denies leg edema and Denies dyspnea Respiratory: Respiratory: Denies chest congestion, Denies cough, Denies dyspnea and Denies wheezing Gastrointestinal: Gastrointestinal: Denies diarrhea, Reports nausea and Denies vomiting Genitourinary: Genitourinary: Denies dysuria and Denies urinary frequency Musculoskeletal: Musculoskeletal: Denies myalgias Integumentary/Breasts: Skin/Breast: Denies rash Neurologic: Denies confusion, Denies headache(s) and Denies memory loss Psychiatric: Psychiatric: Denies confusion and Denies memory loss Endocrine: Endocrine: Denies fatigue Hematologic/Lymphatic: Hematologic/Lymphatic: Denies easy bleeding Allergic/Immunologic: Allergic/Immunologic: Denies wheezing [facility] Medical History Prostate cancer metastatic to bone Hemorrhoids Elevated PSA Surgical History Hx of prostate biopsy Social History Household Members: None Are you a primary nonfarm animal caretaker to a significant other at home: No Do you presently have visiting nurse or other home services: No Patient Tobacco Use Status: Never used Tobacco Smoked in Last 30 Days: No Use of substances other than those prescribed or required for medical reasons: No Advance Directives: No Advance Directives Information Provided: No Do you have a plan to hurt others: No Plan service: No 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 Meds Allergies Allergy/AdvReac Type Severity Reaction Status Date / Time amoxicillin [From Augmentin] Allergy Severe tongue/facial Verified 07/04/24 16:56 swelling clavulanic acid Allergy Severe tongue/facial Verified 07/04/24 16:56 [From Augmentin] swelling Active Medications: Current Medications Acetaminophen (Acetaminophen 325 Mg Tablet) 975 mg PO Q6H PRN PRN Reason: Pain, Mild (Pain Scale 1-3), fever or headache Calcium Carbonate (Calcium Carbonate 750 Mg Tab.Chew) 750 mg PO Q4H PRN PRN Reason: Heartburn Cosyntropin (Cosyntropin 0.25 Mg Vial) 0.25 mg IVPUSH ONCE ONE Stop: 07/05/24 10:01 Enoxaparin Sodium (Enoxaparin Sodium 40 Mg/0.4 Ml Syringe) 40 mg SUBCUT Q24H [facility] Magnesium Hydroxide (Milk Of Magnesia 30 Ml Oral.Susp) 30 ml PO DAILY PRN PRN Reason: Constipation Melatonin (Melatonin 3 Mg Tablet) 6 mg PO BEDTIME PRN PRN Reason: Insomnia Ondansetron HCl (Ondansetron Hcl 4 Mg/2 Ml Vial) 4 mg IVPUSH Q8H PRN PRN Reason: Nausea and Vomiting Sodium Chloride (0.9 % Sodium Chloride Flush 3 Ml Syringe) 3 ml IVFLUSH QSHIFT [facility] Physical Exam 2 Vital Signs and Narrative: Vital Signs: Last Vital Signs Temp 98.0 F 07/04/24 18:32 Pulse 82 07/04/24 18:32 Resp 18 07/04/24 18:32 BP 165/84 H 07/04/24 18:32 Pulse Ox 98 07/04/24 18:36 O2 Del Method Room Air 07/04/24 18:36 BMI result Body Mass Index 25.1 General: AOx3, no acute distress Resp: crackles bilateral lung bases CVS: RRR, no murmur GI: +BS, NT, no distention Skin: Warm, dry Neuro: Cranial nerves II-XII grossly intact bilaterally. Motor grossly intact bilaterally Extremities: No LE edema Psych: Appropriate affect Const: General: No confusion Orientation/consciousness: No confusion Neuro: General: No confusion Results Labs 07/04/24 17:12 07/04/24 17:12 Labs: Laboratory Results - last 24 hr 07/04/24 17:12 MCV 92.0 MCH 31.5 MCHC 34.3 RDW 12.3 Plt Count 249 MPV 8.5 L Immature Gran % (Auto) 0.4 Neut % (Auto) 71.3 Lymph % (Auto) 17.4 L [place] % (Auto) 8.2 Eos % (Auto) 2.6 Baso % (Auto) 0.1 Lymph # (Auto) 1.6 [place] # (Auto) 0.7 Eos # (Auto) 0.2 Baso # (Auto) 0.0 Abs Immat Gran (auto) 0.04 H Absolute Neuts (auto) 6.4 Absolute Nucleated RBC 0.000 Nucleated RBC % (auto) 0.0 PT 12.6 H INR 1.1 Anion Gap 15 Estim Creat Clear Calc 53.2 Estimated GFR > 60 Random Glucose 131 H Calcium 9.1 Magnesium 2.1 Total Bilirubin 0.6 AST 53 H ALT 39 Alkaline Phosphatase 40 Troponin I High Sens 7.6 B-Natriuretic Peptide 115 H Total Protein 6.7 Albumin 3.9 Lipase 21 Influenza Type A (PCR) NEGATIVE Influenza Type B (PCR) NEGATIVE RSV RNA Qual (PCR) NEGATIVE SARS-CoV-2 RNA (RT-PCR) NEGATIVE Assessment and Plan (1) Syncope: Qualifiers: Syncope type: unspecified Qualified Code(s): R55 - Syncope and collapse Status: Acute (2) Prostate cancer metastatic to bone: Status: Acute Plan Patient is an 84-year-old male with a past medical history significant for metastatic prostate cancer, started on Xtandi 2 weeks ago, who reported back to the ED after being discharged earlier today for 2 additional syncopal episodes. recent w/u normal and ruled to be likely due to Xtand and pt discontinued. syncope - vitals normal, orthostatics yesterday normal - no sign of infectious process, no leukocytosis, CXR negative - recent brain MRI without CVA - EKG normal - mild elevation of BNP, no LE edema or pulmonary edema - consulted by oncology earlier today who suggested he stop Xtandi, ACTH test and possible low dose steroid - will check baseline serum cortisol in AM and again @1200 - consider ACTH stimulation test and low dose steroid as above - echo ordered - cardio consult - admit to med [facility] metastatic prostate cancer - followed by Dr. Klein - hold Xtandi as above DNR/DNI - discussed with pt VTE prophy: lovenox Patient with recent admission syncope, presented again hours after discharge with repeat syncopal episodes, requiring admission for further workup and monitoring. Quality Stroke Does the patient have a stroke diagnosis?: No VTE Prior VTE?: No VTE Risk Level:: Medical - moderate - high VTE Device Contraindication: Treatment Not Indicated VTE Drug Contraindication: N/A - Med Ordered
[2024-07-04] MEDS: Enoxaparin Sodium 40 MG/0.4 ML SYRINGE SUBCUT (21:28)
--- NOTE | 2024-07-04 21:49 | PHA.MEDREC ---
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 Original Note: Pharmacy Consult ? Medication Reconciliation Pharmacy has completed the medication reconciliation. Spoke with patient and son at bedside. Patient was just discharged this morning and is not back in here. Patient and son state he is not taking anything starting today and states the Dr yesterday out the Xtandi 80mg tab on hold until he sees his Roll Edge Machine Operator. He last took the medication yesterday before coming in the first time.
--- NOTE | 2024-07-04 23:09 | PC.NURSE ---
Patient awake and alert. skin pwd, resp even and non labored, speaking in full, clear sentences. denies dizziness or pain. NSR via tele. awaiting bed assignment patient prefers to keep his shoes on.
[2024-07-04] MEDS: 0.9 % Sodium Chloride Flush 3 ML SYRINGE IVFLUSH (23:11)
[2024-07-05] VITALS (9 sets, daily range): BP systolic 148–178; BP diastolic 60–98; PULSE 82–96; RESP 15–20; TEMP 36.4–36.9; O2SAT 96–97; BMI 25.1; BMI 24.6
[2024-07-05 05:08] LABS: MANUAL DIFF FLAG NO
[2024-07-05 05:09] LABS: Basophils Percent Auto 0.1 % (0-2); Eosinophils Absolute Auto 0.3 X10*3/uL (0.0-0.4); Eosinophils Percent Auto 3.5 % (0-4); Hematocrit 41.7 % (42.0-52.0); Hemoglobin 14.9 g/dl (14.0-18.0); Imm Gran Abs Auto 0.04 X10*3/uL (0.00-0.03); Imm Gran Pct Auto 0.5 % (0.0-0.4); Lymphocytes Absolute Auto 1.6 X10*3/uL (1.2-4.9); Mean Corpuscular HGB Conc 35.7 g/dl (31.0-36.0); Mean Corpuscular Hemoglobin 31.8 pg (27.0-33.0); Mean Corpuscular Volume 88.9 fL (80.0-98.0); Mean Platelet Volume 8.5 fL (9.4-12.4); Monocytes Absolute Auto 0.8 X10*3/uL (0.1-1.2); Monocytes Percent Auto 9.4 % (2-11); Neutrophils Absolute Auto 5.4 x10*3/uL (2.0-8.3); Neutrophils Percent Auto 66.5 % (45-73); Platelet Count 216 X10*3/uL (160-400); Red Blood Count 4.69 X10*6/uL (4.60-5.80); Red Cell Distribution Width 12.2 % (11.0-16.0); White Blood Count 8.2 X10*3/uL (4.8-10.8)
[2024-07-05 05:24] LABS: Anion Gap 13 (12-20); Blood Urea Nitrogen 9 mg/dL (9-16); Calcium 8.6 mg/dL (8.4-10.2); Carbon Dioxide 20 mmol/L (22-29); Chloride 108 mmol/L (96-108); Creatinine Clr Calc Pharmacy 61.3; Estimated Glomerular Filt Rate > 60; Glucose Random 101 mg/dL (60-115); Potassium 3.5 mmol/L (3.3-5.1); Sodium 137 mmol/L (135-145)
--- NOTE | 2024-07-05 07:00 | CA_ITS ---
Transthoracic Echocardiogram Patient (Last, First, Middle): Harshad Salguero, Gender: Male Date of : 1940 Age: 84 Procedure Date: 07/05/2024 Procedure Type: Transthoracic Echocardiogram Location: ER Height: 180.34 cm Weight: 81.65 kg BSA: 2.02 m2 Heart Rate: bpm BP: 158 / 98 mmHg Plant Supervisor: MARCELLUS Referring MD: Nayla Rios PA-C Cell Pourer: Jovany Newsome MD Symptoms: syncope Study Quality: Adequate ECG Rhythm: Sinus Conclusions: - 1. Mildly reduced LV ejection fraction of 45-50% with impaired relaxation filling pattern 2. Trivial aortic regurgitation 3. Normal RV systolic pressure 4. Upper limits of normal ascending aortic size 5. No gross pericardial effusion Findings Left Ventricle Normal left ventricular cavity size. There is normal left ventricular wall thickness. The left ventricular systolic function is mildly decreased. The visually estimated ejection fraction is between 45-50%. Spectral Doppler is indicative of an impaired relaxation filling pattern. E/E prime ratio is between 8 and 15 consistent with indeterminate filling pressures. Right Ventricle Normal right ventricular cavity size and systolic function. Atria Both atria are normal in size. There is no evidence of interatrial shunt. Aortic Valve There is mild calcification of the aortic valve. There is no aortic valve stenosis. There is trace (trivial) aortic valve regurgitation. Mitral Valve There is mild anterior and posterior mitral leaflet thickening. There is trace mitral valve regurgitation. There is no mitral valve stenosis. Pulmonic Valve The pulmonic valve is likely normal. Tricuspid Valve Normal tricuspid valve structure. There is trace tricuspid valve regurgitation. The right ventricular systolic pressure is normal. The right ventricular systolic pressure is 29 mmHg. Normal right atrial pressure. There is no evidence of pulmonary hypertension. Great Vessels The pulmonary artery was not well visualized. There is no dilatation of the ascending aorta measuring 3.50 cm. Small plaque is seen in the sino tubular ridge. Venous The inferior vena cava is normal in size and collapses greater than 50% with inspiration. Pericardium/Pleural There is no evidence of pericardial effusion. Prior Study Comparison No prior study available for comparison. Measurements 2D Linear Measurements IVSd: 0.92 0.6-0.9/0.6-1.0 cm LVIDd: 4.70 3.9-5.3/4.2-5.9 cm LVIDd Index: 2.33 2.4-3.2/2.2-3.1 cm/m2 LVIDs: 3.63 2.0-3.6 cm LVPWd: 0.80 0.7-1.1 cm Ao Root: 3.70 2.1-3.5 cm LA Diam: 3.00 2.7-3.8/3.0-4.0 cm LAIDs Index: 1.49 1.5-2.3 cm/m2 LV Mass: 167.09 67-162/88-224 g LV Mass Index: 82.72 43-95/49-115 g/m2 LVOT Diam: 2.10 3.0+(-)1.3 cm 2D Systolic Function EF 4C: 43.70 >55% EF 2C: 50.40 >55% EF BiP: 47.70 >55% Mitral Valve MV Pk E: 0.36 MV PK A: 0.89 MV Decel Time: 160.00 E/A: 0.40 E'Lateral: 4.79 E'Medial: 4.46 E/E' Med: 8.10 E/E' Lat: 7.50 PHT: 47.00 MVA PHT: 4.68 Decel Mobile: 2.24 Aortic Valve AoV Pk [place]w: 0.95 AoV Mn [place]: 0.77 AoV VTI: 0.19 AoV Pk Grad: 4.00 Aov Mn Grad: 3.00 ROGE Cont.VTI: 2.73 LVOT LVOT Pk [place]: 0.68 LVOT Mn [place]: 0.51 LVOT VTI: 0.15 LVOT Pk Grad: 2.00 LVOT Mn Grad: 1.00 LVOT Diam: 2.10 LVOT Area: 3.46 Diastolic Function MV Pk E: 0.36 MV Pk A: 0.89 E/A: 0.40 E'Medial: 4.46 E/E' Med: 8.10 E' Laterial: 4.79 E/E' Lat: 7.50 Right Ventricle TAPSE (mm): 22.80 TVS' [place]w: 15.30 Tricuspid Valve TR Pk [place]w: 2.57 TR Pk Grad: 26.00 RA Press: 3.00 RVSP: 29.00 Great Vessels Aorta Ao Root-2D: 3.70 2.0-3.7 cm Ao Asc: 3.50 2.1-3.4 cm Ao Arch: 2.50 Pulmonary Veins Pulm Vein S/D 2.20 Pulmonary Valve PV Pk [place]w: 1.01 Peak PV Grad: 4.00 Updated in Other Vendor System with Status of Final Jovany Newsome MD electronically signed on 07/05/2024 3:58:29 PM with status of Final
[2024-07-05] MEDS: 0.9 % Sodium Chloride Flush 3 ML SYRINGE IVFLUSH (07:58)
[2024-07-05 09:38] LABS: Appearance Urine Clear; Color Urine Yellow; Glucose Urine UA Negative (Negative); Leukocyte Esterase Urine Negative (Negative); Nitrite Urine Negative (Negative); PH 6.5 (5.0-9.0); Specific Gravity - Urine 1.015 (1.005-1.025); UMIC TRIGGER UACC YES; Urine Blood Trace (Negative); Urine Ketones 15 mg/dL (Negative); Urine Protein Trace mg/dL (Neg-Trace)
[2024-07-05 09:40] LABS: Bacteria Urine None Seen (None Seen); Hyaline Casts Urine 0-2 /LPF (0-2); Squamous Epithelial Cell Urine 0-2 /HPF (0-2); WBC Urine 0-5 /HPF (0-5)
[2024-07-05 11:16] LABS: Cortisol Random 9.2 ug/dL
[2024-07-05] MEDS: Lactated Ringers 1,000 ML 80 ML IVCONT (12:25)
--- NOTE | 2024-07-05 13:38 | MHC.CM.PN ---
Met with patient and son Harshad in regards to discharge planning. Patient lives alone, ambulates independently and had no services prior to coming to the ER. Patient was under observation at [facility] and d/c'd home on 07/04. Patient returned to ER d/t syncope 30 minutes later. PCP veified. Patient states he has a HCP at home and Dr Ly's office has a copy. Copy requested from Dr Lynne office. IMM explained and signed. Son will transport patient home when medically stable. Continue to monitor for d/c needs.
--- NOTE | 2024-07-05 15:06 | P.CONCA_ITS ---
History of Present Illness History of Present Illness Date of Service: 07/05/24 Requesting physician: James Santana Consult reason: other (Syncope) Chief complaint: Syncope Narrative: I was consulted to see Harshad in cardiology consultation today he presented with syncopal episode. 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 She says stent statin therapy he said he has not felt well. He has been nauseous he has not been eating well and hydrating himself well. On he was not feeling well and felt lightheaded and may have passed out he is not sure. He subsequently as he continued to not feel well came to the hospital 2 days ago. He was watched overnight hydrated and subsequently discharged home yesterday after having no obvious abnormality. He sent home yesterday was sitting at the table and he said he passed out. He felt lightheaded and felt like he was going out. He had no associated chest pain or shortness of breath. No palpitation or prolonged irregular heartbeat. Came to the hospital. EKG does not show any significant arrhythmias so far. Blood pressure has been elevated and he said that he has white coat hypertension in the setting of his blood pressure is generally elevated. His orthostatic vitals last time were negative. He said he has not been drinking and eating as well. He said this all trouble started after he was started on Xtandi. He said he is now wanting to take this therapy. He has no prior cardiovascular issues as per him. He said he has been functionally very active prior to this. Review of Systems 2 Constitutional: Constitutional: Reports no additional constitutional complaints Eyes: Eyes: Reports no additional eye complaints Cardiovascular: Cardiovascular: Denies chest pain, Denies rapid heart rate, Reports lightheadedness, Reports Loss of Consciousness, Denies palpitations and Denies dyspnea Respiratory: Respiratory: Denies no additional respiratory complaints and Denies dyspnea Gastrointestinal: Gastrointestinal: Reports nausea Genitourinary: Genitourinary: Denies no additional male genitourinary complaints Musculoskeletal: Musculoskeletal: Denies no additional musculoskeletal complaints Integumentary/Breasts: Skin/Breast: Denies system reviewed and no additional complaints, except as docu Neurologic: Denies system reviewed and no additional complaints, except as documented Endocrine: Endocrine: Denies no additional endocrine complaints and Denies palpitations Hematologic/Lymphatic: Hematologic/Lymphatic: Denies no additional hematologic/lymphatic complaints Allergic/Immunologic: Allergic/Immunologic: Denies no additional allergic/immunologic complaints PMF Past Medical History Medical History Prostate cancer metastatic to bone Hemorrhoids Elevated PSA Surgical History Surgical History Hx of prostate biopsy Social History Social History Household Members: None Are you a primary adult day care worker to a significant other at home: No Do you presently have visiting nurse or other home services: No Patient Tobacco Use Status: Never used Tobacco Smoked in Last 30 Days: No Use of substances other than those prescribed or required for medical reasons: No Have you been hit, kicked, punched, or otherwise hurt by someone within the past year? 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 Allergies Allergy/AdvReac Type Severity Reaction Status Date / Time amoxicillin [From Augmentin] Allergy Severe tongue/facial Verified 07/04/24 16:56 swelling clavulanic acid Allergy Severe tongue/facial Verified 07/04/24 16:56 [From Augmentin] swelling Active Medications: Current Medications Acetaminophen (Acetaminophen 325 Mg Tablet) 975 mg PO Q6H PRN PRN Reason: Pain, Mild (Pain Scale 1-3), fever or headache Calcium Carbonate (Calcium Carbonate 750 Mg Tab.Chew) 750 mg PO Q4H PRN PRN Reason: Heartburn Enoxaparin Sodium (Enoxaparin Sodium 40 Mg/0.4 Ml Syringe) 40 mg SUBCUT Q24H [facility] Last Admin: 07/04/24 21:28 Dose: 40 mg Lactated Ringer's (Lr) 1,000 mls @ 80 mls/hr IVCONT .[id number] [facility] Last Admin: 07/05/24 12:25 Dose: 80 mls/hr Magnesium Hydroxide (Milk Of Magnesia 30 Ml Oral.Susp) 30 ml PO DAILY PRN PRN Reason: Constipation Melatonin (Melatonin 3 Mg Tablet) 6 mg PO BEDTIME PRN PRN Reason: Insomnia Ondansetron HCl (Ondansetron Hcl 4 Mg/2 Ml Vial) 4 mg IVPUSH Q8H PRN PRN Reason: Nausea and Vomiting Sodium Chloride (0.9 % Sodium Chloride Flush 3 Ml Syringe) 3 ml IVFLUSH QSHIFT [facility] Last Admin: 07/05/24 07:58 Dose: 3 ml Physical Exam 2 Vital Signs: Vital Signs: Last Vital Signs Temp 98.3 F 07/05/24 14:14 Pulse 88 07/05/24 14:14 Resp 18 07/05/24 14:14 BP 178/98 H 07/05/24 14:14 Pulse Ox 96 07/05/24 14:14 O2 Del Method Room Air 07/05/24 14:14 BMI result Body Mass Index 24.6 Const: General: cooperative, comfortable, no acute distress, alert, awake and Physically active Nutritional Appearance: average body habitus O rientation/consciousness: patient oriented x3 Limitations: no limitations HEENT: Head: Yes normocephalic and Yes atraumatic Neck: Neck: Yes trachea midline, Yes supple and Yes no JVD Resp: Effort & Inspection: normal respiratory effort Auscultation: clear to auscultation bilaterally Cardio: Jugular venous distension: no JVD Palpation: normal PMI Rate: r egular rate Rhythm: regular rhythm Heart sounds: S1 normal heart sound present, S2 normal heart sound present, no click, no gallops and no murmurs GI: Auscultation: normal bowel sounds Skin: General skin exam: no rashes or lesions noted Neuro: General: patient oriented x3 and no focal motor deficits Extrem: General: Yes no clubbing, cyanosis or edema Objective Labs and Meds 07/05/24 04:50 07/05/24 04:50 Lab results: Laboratory Results - last 24 hr 07/04/24 07/05/24 07/05/24 17:12 04:50 09:32 WBC 9.0 8.2 RBC 5.01 4.69 Hgb 15.8 14.9 Hct 46.1 41.7 L MCV 92.0 88.9 MCH 31.5 31.8 MCHC 34.3 35.7 RDW 12.3 12.2 Plt Count 249 216 MPV 8.5 L 8.5 L Immature Gran % (Auto) 0.4 0.5 H Neut % (Auto) 71.3 66.5 Lymph % (Auto) 17.4 L 20.0 [place] % (Auto) 8.2 9.4 Eos % (Auto) 2.6 3.5 Baso % (Auto) 0.1 0.1 Lymph # (Auto) 1.6 1.6 [place] # (Auto) 0.7 0.8 Eos # (Auto) 0.2 0.3 Baso # (Auto) 0.0 0.0 Abs Immat Gran (auto) 0.04 H 0.04 H Absolute Neuts (auto) 6.4 5.4 Absolute Nucleated RBC 0.000 0.000 Nucleated RBC % (auto) 0.0 0.0 PT 12.6 H INR 1.1 Sodium 138 137 Potassium 4.0 3.5 Chloride 105 108 Carbon Dioxide 22 20 L Anion Gap 15 13 BUN 10 9 Creatinine 1.06 0.92 Estim Creat Clear Calc 53.2 61.3 Estimated GFR > 60 > 60 Random Glucose 131 H 101 Calcium 9.1 8.6 Magnesium 2.1 Total Bilirubin 0.6 AST 53 H ALT 39 Alkaline Phosphatase 40 Troponin I High Sens 7.6 B-Natriuretic Peptide 115 H Total Protein 6.7 Albumin 3.9 Lipase 21 Random Cortisol Urine Color Yellow Urine Appearance Clear Urine pH 6.5 Ur Specific [place] 1.015 Urine Protein Trace Urine Glucose (UA) Negative Urine Ketones 15 Urine Blood Trace H Urine Nitrite Negative Ur Leukocyte Esterase Negative Urine RBC 3-5 H Urine WBC 0-5 Ur Squamous Epith Cells 0-2 Urine Bacteria None Seen Hyaline Casts 0-2 Influenza Type A (PCR) NEGATIVE Influenza Type B (PCR) NEGATIVE RSV RNA Qual (PCR) NEGATIVE SARS-CoV-2 RNA (RT-PCR) NEGATIVE 07/05/24 10:35 WBC RBC Hgb Hct MCV MCH MCHC RDW Plt Count MPV Immature Gran % (Auto) Neut % (Auto) Lymph % (Auto) [place] % (Auto) Eos % (Auto) Baso % (Auto) Lymph # (Auto) [place] # (Auto) Eos # (Auto) Baso # (Auto) Abs Immat Gran (auto) Absolute Neuts (auto) Absolute Nucleated RBC Nucleated RBC % (auto) PT INR Sodium Potassium Chloride Carbon Dioxide Anion Gap BUN Creatinine Estim Creat Clear Calc Estimated GFR Random Glucose Calcium Magnesium Total Bilirubin AST ALT Alkaline Phosphatase Troponin I High Sens B-Natriuretic Peptide Total Protein Albumin Lipase Random Cortisol 9.2 Urine Color Urine Appearance Urine pH Ur Specific [place] Urine Protein Urine Glucose (UA) Urine Ketones Urine Blood Urine Nitrite Ur Leukocyte Esterase Urine RBC Urine WBC Ur Squamous Epith Cells Urine Bacteria Hyaline Casts Influenza Type A (PCR) Influenza Type B (PCR) RSV RNA Qual (PCR) SARS-CoV-2 RNA (RT-PCR) Assessment and Plan (1) Syncope: Qualifiers: Syncope type: unspecified Qualified Code(s): R55 - Syncope and collapse Status: Acute Syncope in this elderly gentleman after started extended with poor appetite and poor oral intake. Most likely orthostatic in nature although orthostatic vitals performed last admissions were within normal limits. Will repeat orthostatic vitals. I would give him IV hydration for 1 day. He says blood pressure is often elevated in such situations and normally blood pressure at home is well controlled. Will not try to corrected at this point time. Agree with echocardiogram. Continue full disclosure cardiac monitoring to rule out any cardiac arrhythmias. If everything appears normal by tomorrow including orthostatic vitals, will most likely plan for discharge tomorrow. Will need outpatient workup and follow-up including monitoring. Will follow with you Procedures Date of Service Date of Service: 07/05/24
--- NOTE | 2024-07-05 15:22 | P.CNNE_ITS ---
History of Present Illness Data of Consult Service Date: 07/05/24 Primary Care Provider: Kashif Ly MD [facility] Reason for consult: syncope This is an 84-year-old male with a past medical history significant for metastatic prostate cancer, started on Xtandi 2 weeks ago, who reported back to the ED after being discharged earlier today for 2 additional syncopal episodes. He reports episodes of dizziness and blurry vision after taking the medication. He was recently admitted 07/03/24 and monitored on telemetry which was unremarkable. He also had an MRI which showed metastasis to C2. The near syncopal events at that time were suggested to be a possible side effect from Xtandi. The patient reports that 1 hour after he got home today he was sitting down having a conversation and felt nauseous followed by a syncopal episode. He did not fall or hit his head. There was no incontinence or seizure-like activity, all was witnessed. After about 1 minute they were able to arouse him and then he again had a repeat syncopal episode. After that he was brought back to the ED. He has not had any further episodes since. He denies any fever, chills, abdominal pain, diarrhea or vomiting. He does report he has not been eating or drinking much since his hospital stay. [facility] Past Medical History Medical History Prostate cancer metastatic to bone Hemorrhoids Elevated PSA Surgical History Surgical History Hx of prostate biopsy Social History Social History Household Members: None Are you a primary rn care transition to a significant other at home: No Do you presently have visiting nurse or other home services: No Patient Tobacco Use Status: Never used Tobacco Smoked in Last 30 Days: No Use of substances other than those prescribed or required for medical reasons: No Have you been hit, kicked, punched, or otherwise hurt by someone within the past year? 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 Allergies Allergy/AdvReac Type Severity Reaction Status Date / Time amoxicillin [From Augmentin] Allergy Severe tongue/facial Verified 07/04/24 16:56 swelling clavulanic acid Allergy Severe tongue/facial Verified 07/04/24 16:56 [From Augmentin] swelling Active Medications: Current Medications Acetaminophen (Acetaminophen 325 Mg Tablet) 975 mg PO Q6H PRN PRN Reason: Pain, Mild (Pain Scale 1-3), fever or headache Calcium Carbonate (Calcium Carbonate 750 Mg Tab.Chew) 750 mg PO Q4H PRN PRN Reason: Heartburn Enoxaparin Sodium (Enoxaparin Sodium 40 Mg/0.4 Ml Syringe) 40 mg SUBCUT Q24H [facility] Last Admin: 07/04/24 21:28 Dose: 40 mg Lactated Ringer's (Lr) 1,000 mls @ 80 mls/hr IVCONT .[id number] [facility] Last Admin: 07/05/24 12:25 Dose: 80 mls/hr Magnesium Hydroxide (Milk Of Magnesia 30 Ml Oral.Susp) 30 ml PO DAILY PRN PRN Reason: Constipation Melatonin (Melatonin 3 Mg Tablet) 6 mg PO BEDTIME PRN PRN Reason: Insomnia Ondansetron HCl (Ondansetron Hcl 4 Mg/2 Ml Vial) 4 mg IVPUSH Q8H PRN PRN Reason: Nausea and Vomiting Sodium Chloride (0.9 % Sodium Chloride Flush 3 Ml Syringe) 3 ml IVFLUSH QSHIFT [facility] Last Admin: 07/05/24 15:06 Dose: Not Given Physical Exam 2 Vital Signs: Vital Signs: Last Vital Signs Temp 98.3 F 07/05/24 14:14 Pulse 88 07/05/24 14:14 Resp 18 07/05/24 14:14 BP 178/98 H 07/05/24 14:14 Pulse Ox 96 07/05/24 14:14 O2 Del Method Room Air 07/05/24 14:14 BMI result Body Mass Index 24.6 Neuro: Other: Is alert and oriented with normal intellectual functions. Cranial nerves II through XII are normal. Muscle tone and strength normal in all 4 extremities. DTRs 1+. Plantar response are flexor Results Labs 12/11/24 04:50 07/05/24 04:50 Labs: Short CBC 07/04/24 07/05/24 Range/Units 17:12 04:50 WBC 9.0 8.2 (4.8-10.8) X10*3/uL Hgb 15.8 14.9 (14.0-18.0) g/dl Hct 46.1 41.7 L (42.0-52.0) % Plt Count 249 216 (160-400) X10*3/uL BMP 07/04/24 07/05/24 17:12 04:50 Sodium 138 137 Potassium 4.0 3.5 Chloride 105 108 Carbon Dioxide 22 20 L BUN 10 9 Creatinine 1.06 0.92 Calcium 9.1 8.6 Liver Function 07/04/24 Range/Units 17:12 Total Bilirubin 0.6 (0.0-1.0) mg/dL AST 53 H (5-37) U/L ALT 39 (0-40) U/L Alkaline Phosphatase 40 (39-117) U/L Albumin 3.9 (3.5-5.0) g/dL Urine 07/05/24 Range/Units 09:32 Urine Color Yellow Urine Appearance Clear Urine pH 6.5 (5.0-9.0) Ur Specific [place] 1.015 (1.005-1.025) Urine Protein Trace (Neg-Trace) mg/dL Urine Glucose (UA) Negative (Negative) mg/dL Assessment and Plan (1) Syncope: Qualifiers: Syncope type: unspecified Qualified Code(s): R55 - Syncope and collapse Status: Acute Recurrent syncopal episodes of unclear etiology which he attributes to his new cancer drug. I am not familiar with this drug and whether this is a side effect that is known. Recommendations: Would recommend checking for orthostatic hypotension. Cardiac monitoring and EEG. Procedures Date of Service Date of Service: 07/05/24
--- NOTE | 2024-07-05 15:26 | P.PNIM_ITS ---
Subjective Subjective Date of Service: 07/05/24 Interval History: syncope Review of Systems no chest pain or sob or dizziness Physical Exam 2 Vital Signs: Vital Signs: Last Vital Signs Temp 98.3 F 07/05/24 14:14 Pulse 88 07/05/24 14:14 Resp 18 07/05/24 14:14 BP 178/98 H 07/05/24 14:14 Pulse Ox 96 07/05/24 14:14 O2 Del Method Room Air 07/05/24 14:14 BMI result Body Mass Index 24.6 General: AOx3, no acute distress Resp: crackles bilateral lung bases CVS: RRR, s1s2 heard. GI: +BS, NT, no distention Skin: Warm, dry Neuro: Cranial nerves II-XII grossly intact bilaterally. Motor grossly intact bilaterally Extremities: No LE edema Objective Data Active Medications Acetaminophen (Acetaminophen 325 Mg Tablet) 975 mg PO Q6H PRN PRN Reason: Pain, Mild (Pain Scale 1-3), fever or headache Calcium Carbonate (Calcium Carbonate 750 Mg Tab.Chew) 750 mg PO Q4H PRN PRN Reason: Heartburn Enoxaparin Sodium (Enoxaparin Sodium 40 Mg/0.4 Ml Syringe) 40 mg SUBCUT Q24H [facility] Last Admin: 07/04/24 21:28 Dose: 40 mg Documented By: MATHEW Lactated Ringer's (Lr) 1,000 mls @ 80 mls/hr IVCONT .[id number] [facility] Last Admin: 07/05/24 12:25 Dose: 80 mls/hr Documented By: KAYLA Magnesium Hydroxide (Milk Of Magnesia 30 Ml Oral.Susp) 30 ml PO DAILY PRN PRN Reason: Constipation Melatonin (Melatonin 3 Mg Tablet) 6 mg PO BEDTIME PRN PRN Reason: Insomnia Ondansetron HCl (Ondansetron Hcl 4 Mg/2 Ml Vial) 4 mg IVPUSH Q8H PRN PRN Reason: Nausea and Vomiting Sodium Chloride (0.9 % Sodium Chloride Flush 3 Ml Syringe) 3 ml IVFLUSH QSHIFT [facility] Last Admin: 07/05/24 15:06 Dose: Not Given Documented By: MEG Non-Admin Reason: IV Running Labs 07/05/24 04:50 07/05/24 04:50 Labs: Laboratory Results - last 24 hr 07/04/24 07/05/24 07/05/24 17:12 04:50 09:32 MCV 92.0 88.9 MCH 31.5 31.8 MCHC 34.3 35.7 RDW 12.3 12.2 Plt Count 249 216 MPV 8.5 L 8.5 L Immature Gran % (Auto) 0.4 0.5 H Neut % (Auto) 71.3 66.5 Lymph % (Auto) 17.4 L 20.0 [place] % (Auto) 8.2 9.4 Eos % (Auto) 2.6 3.5 Baso % (Auto) 0.1 0.1 Lymph # (Auto) 1.6 1.6 [place] # (Auto) 0.7 0.8 Eos # (Auto) 0.2 0.3 Baso # (Auto) 0.0 0.0 Abs Immat Gran (auto) 0.04 H 0.04 H Absolute Neuts (auto) 6.4 5.4 Absolute Nucleated RBC 0.000 0.000 Nucleated RBC % (auto) 0.0 0.0 PT 12.6 H INR 1.1 Anion Gap 15 13 Estim Creat Clear Calc 53.2 61.3 Estimated GFR > 60 > 60 Random Glucose 131 H 101 Calcium 9.1 8.6 Magnesium 2.1 Total Bilirubin 0.6 AST 53 H ALT 39 Alkaline Phosphatase 40 Troponin I High Sens 7.6 B-Natriuretic Peptide 115 H Total Protein 6.7 Albumin 3.9 Lipase 21 Random Cortisol Urine Color Yellow Urine Appearance Clear Urine pH 6.5 Ur Specific [place] 1.015 Urine Protein Trace Urine Glucose (UA) Negative Urine Ketones 15 Urine Blood Trace H Urine Nitrite Negative Ur Leukocyte Esterase Negative Urine RBC 3-5 H Urine WBC 0-5 Ur Squamous Epith Cells 0-2 Urine Bacteria None Seen Hyaline Casts 0-2 Influenza Type A (PCR) NEGATIVE Influenza Type B (PCR) NEGATIVE RSV RNA Qual (PCR) NEGATIVE SARS-CoV-2 RNA (RT-PCR) NEGATIVE 07/05/24 10:35 MCV MCH MCHC RDW Plt Count MPV Immature Gran % (Auto) Neut % (Auto) Lymph % (Auto) [place] % (Auto) Eos % (Auto) Baso % (Auto) Lymph # (Auto) [place] # (Auto) Eos # (Auto) Baso # (Auto) Abs Immat Gran (auto) Absolute Neuts (auto) Absolute Nucleated RBC Nucleated RBC % (auto) PT INR Anion Gap Estim Creat Clear Calc Estimated GFR Random Glucose Calcium Magnesium Total Bilirubin AST ALT Alkaline Phosphatase Troponin I High Sens B-Natriuretic Peptide Total Protein Albumin Lipase Random Cortisol 9.2 Urine Color Urine Appearance Urine pH Ur Specific [place] Urine Protein Urine Glucose (UA) Urine Ketones Urine Blood Urine Nitrite Ur Leukocyte Esterase Urine RBC Urine WBC Ur Squamous Epith Cells Urine Bacteria Hyaline Casts Influenza Type A (PCR) Influenza Type B (PCR) RSV RNA Qual (PCR) SARS-CoV-2 RNA (RT-PCR) Assessment and Plan (1) Syncope: Status: Acute Assessment and Plan: 84-year-old male with a past medical history significant for metastatic prostate cancer, started on Xtandi 2 weeks ago, who reported back to the ED after being discharged earlier today for 2 additional syncopal episodes. recent w/u normal and ruled to be likely due to Xtand and pt discontinued. syncope- vitals normal, orthostatics yesterday normal - no sign of infectious process, no leukocytosis, CXR negative - recent brain MRI without CVA - EKG normal - mild elevation of BNP, no LE edema or pulmonary edema - echo ordered, orthostasis ,cardio consult noted -will add iv hydration for day or so. - admit to med tele neuro eval added. metastatic prostate cancer - followed by Dr. Klein - hold Xtandi as above DNR/DNI - discussed with pt. VTE prophy: lovenox ongoing need admission syncope, presented again hours - repeat syncopal episodes, requiring admission for further workup and monitoring. Quality Stroke Does the patient have a stroke diagnosis?: No VTE Prior VTE?: No VTE Risk Level:: Medical - moderate - high VTE Device Contraindication: Treatment Not Indicated VTE Drug Contraindication: N/A - Med Ordered
[2024-07-05] MEDS: Enoxaparin Sodium 40 MG/0.4 ML SYRINGE SUBCUT (21:14)
[2024-07-06] VITALS (7 sets, daily range): BP systolic 129–175; BP diastolic 73–100; PULSE 80–107; RESP 17–20; TEMP 35.9–36.6; O2SAT 96–99; BMI 21.5
--- NOTE | 2024-07-06 | EEG_ITS ---
This is a 16-channel EEG with an EKG lead. The patient is reported awake during the tracing. Background EEG rhythm is low amplitude fast with no obvious asymmetry or paroxysmal tendency. Photic stimulation does not produce any significant abnormality. Hyperventilation is not performed. Cardiac lead does not reveal any significant abnormality. No sharp wave spikes or paroxysmal tendency noted. IMPRESSION: Unremarkable EEG. MD LIONEL Doll/KIRILL / [id number]
[2024-07-06] MEDS: Lactated Ringers 1,000 ML 80 ML IVCONT (05:32)
[2024-07-06 07:26] LABS: MANUAL DIFF FLAG NO
[2024-07-06 07:39] LABS: Basophils Percent Auto 0.1 % (0-2); Eosinophils Absolute Auto 0.5 X10*3/uL (0.0-0.4); Eosinophils Percent Auto 6.3 % (0-4); Hematocrit 41.9 % (42.0-52.0); Hemoglobin 14.6 g/dl (14.0-18.0); Imm Gran Abs Auto 0.04 X10*3/uL (0.00-0.03); Imm Gran Pct Auto 0.5 % (0.0-0.4); Lymphocytes Absolute Auto 2.2 X10*3/uL (1.2-4.9); Lymphocytes Percent Auto 28.4 % (20-40); Mean Corpuscular HGB Conc 34.8 g/dl (31.0-36.0); Mean Corpuscular Hemoglobin 31.7 pg (27.0-33.0); Mean Corpuscular Volume 90.9 fL (80.0-98.0); Mean Platelet Volume 8.4 fL (9.4-12.4); Monocytes Absolute Auto 0.7 X10*3/uL (0.1-1.2); Monocytes Percent Auto 9.3 % (2-11); Neutrophils Absolute Auto 4.3 x10*3/uL (2.0-8.3); Neutrophils Percent Auto 55.4 % (45-73); Platelet Count 234 X10*3/uL (160-400); Red Blood Count 4.61 X10*6/uL (4.60-5.80); Red Cell Distribution Width 12.4 % (11.0-16.0); White Blood Count 7.7 X10*3/uL (4.8-10.8)
[2024-07-06 07:49] LABS: Anion Gap 12 (12-20); Blood Urea Nitrogen 12 mg/dL (9-16); Calcium 8.5 mg/dL (8.4-10.2); Carbon Dioxide 24 mmol/L (22-29); Chloride 108 mmol/L (96-108); Estimated Glomerular Filt Rate > 60; Glucose Random 95 mg/dL (60-115); Potassium 4.3 mmol/L (3.3-5.1); Sodium 140 mmol/L (135-145)
--- NOTE | 2024-07-06 10:00 | P.PNCA_ITS ---
Subjective Subjective Date of Service: 07/06/24 Principal diagnosis: Syncope Interval history: Patient was had no overnight events. No arrhythmias on cardiac monitoring. Echocardiogram shows preserved LV ejection fraction. Patient feels fine. He is eating and drinking better. His blood pressure remains elevated although he says that this is situation being in the hospital. Review of Systems Review of Systems Yes all other systems are reviewed and are negative Physical Exam Vital Signs: Last Vital Signs Temp 97.8 F 07/06/24 08:00 Pulse 92 07/06/24 08:00 Resp 17 07/06/24 08:00 BP 173/90 H 07/06/24 08:00 Pulse Ox 99 07/06/24 08:00 O2 Del Method Room Air 07/06/24 08:00 BMI result Body Mass Index 21.5 Const General: cooperative, comfortable, no acute distress, alert, awake and Physically active Nutritional Appearance: average body habitus Orientation/consciousness: patient oriented x3 Limitations: no limitations HEENT Head: Yes normocephalic and Yes atraumatic Neck Neck: Yes trachea midline, Yes supple and Yes no JVD Resp Effort & Inspection: normal respiratory effort Auscultation: clear to auscultation bilaterally Cardio Jugular venous distension: no JVD Palpation: normal PMI Rate: regular rate Rhythm: regular rhythm Heart sounds: S1 normal heart sound present, S2 normal heart sound present, no click, no gallops and no murmurs GI Auscultation: normal bowel sounds Skin General skin exam: no rashes or lesions noted Neuro General: patient oriented x3 and no focal motor deficits Extrem General: Yes no clubbing, cyanosis or edema Objective Labs and Meds 07/06/24 07:13 07/06/24 07:13 Lab results: Laboratory Results - last 24 hr 07/05/24 07/06/24 10:35 07:13 WBC 7.7 RBC 4.61 Hgb 14.6 Hct 41.9 L MCV 90.9 MCH 31.7 MCHC 34.8 RDW 12.4 Plt Count 234 MPV 8.4 L Immature Gran % (Auto) 0.5 H Neut % (Auto) 55.4 Lymph % (Auto) 28.4 [place] % (Auto) 9.3 Eos % (Auto) 6.3 H Baso % (Auto) 0.1 Lymph # (Auto) 2.2 [place] # (Auto) 0.7 Eos # (Auto) 0.5 H Baso # (Auto) 0.0 Abs Immat Gran (auto) 0.04 H Absolute Neuts (auto) 4.3 Absolute Nucleated RBC 0.000 Nucleated RBC % (auto) 0.0 Sodium 140 Potassium 4.3 D Chloride 108 Carbon Dioxide 24 Anion Gap 12 BUN 12 Creatinine 1.05 Estim Creat Clear Calc 50.0 Estimated GFR > 60 Random Glucose 95 Calcium 8.5 Random Cortisol 9.2 Progress Note: A&P Assessment and plan (1) Syncope: Status: Acute Assessment and Plan: Syncope in this elderly gentleman appears to be most likely orthostatic in nature from his history. Seizure disorder is less likely although workup can be pursued. His echocardiogram shows normal LV ejection fraction. His monitoring so far shows no arrhythmias. Will follow-up with outpatient prolonged monitoring. We discussed about orthostatic precautions. Advised to maintain adequate oral hydration. I would repeat orthostatic vitals again this morning. I would not treat his elevated blood pressure currently in the hospital as this appears to be more white coat hypertension. Advised to monitor blood pressure at home maintain a log. Patient can be discharged from cardiac perspective. Will set up for follow-up as outpatient. Time Spent With Patient Time: Total time managing care of this patient today ____ minutes. Progress Note: Quality Stroke Does the patient have a stroke diagnosis?: No Procedures Date of Service Date of Service: 07/06/24
--- NOTE | 2024-07-06 11:45 | PM.DS ---
DS: Providers Provider Date of Service: 07/06/24 Date of admission: 07/04/24 20:55 Date of discharge: 07/06/24 Primary care physician: Kashif Ly MD Consults: 07/04/24 20:49 Consult to Cardiology Routine Consulting Provider: [facility] Reason for consultation: syncope Has provider been notified: No 07/05/24 09:16 Consult to Neurology Routine Consulting Provider: [facility] Reason for consultation: Neurocardiogenic syncope Has provider been notified: No DS: Diagnosis Discharge Diagnosis (1) Syncope: Status: Acute DS: Summary Hospital Course Hospital Course: admission hpi Chief Complaint: syncope Patient is an 84-year-old male with a past medical history significant for metastatic prostate cancer, started on Xtandi 2 weeks ago, who reported back to the ED after being discharged earlier today for 2 additional syncopal episodes. He reports episodes of dizziness and blurry vision after taking the medication. He was recently admitted 07/03/24 and monitored on telemetry which was unremarkable. He also had an MRI which showed metastasis to C2. The near syncopal events at that time were suggested to be a possible side effect from Xtandi. The patient reports that 1 hour after he got home today he was sitting down having a conversation and felt nauseous followed by a syncopal episode. He did not fall or hit his head. There was no incontinence or seizure-like activity, all was witnessed. After about 1 minute they were able to arouse him and then he again had a repeat syncopal episode. After that he was brought back to the ED. He has not had any further episodes since. He denies any fever, chills, abdominal pain, diarrhea or vomiting. He does report he has not been eating or drinking much since his hospital stay. hospital course: The patient returned to the hospital following a syncopal episode as described above. A cardiac workup, including ECG, echocardiogram, and continuous cardiac monitoring, has been unremarkable, with no arrhythmias identified as the cause of the syncope. The patient was evaluated by cardiology, which identified a high suspicion for orthostatic hypotension as the likely cause. There have been no further episodes of syncope during hospitalization. The patient has been hydrated with IV fluids, and repeat orthostatic blood pressure measurements are reassuring. He will follow up with cardiology on an outpatient basis for further testing. The patient was also evaluated by neurology, which recommended cardiac monitoring, orthostatic blood pressure evaluation, and an EEG, all of which have been performed. Of note, his blood pressure has been elevated and he believes it is due to stress of being in the hospital and will follow up with his doctor. Additionally, patient has been on chemo agent Xtandi for about 2 weeks now and his oncologist Dr. Klein is advising holding for a couple of week as it is unclear if it may have contributed to his presentation. Time Attestation Discharge Coordination Time (in mins): 35 Quality: Safe Use of Opioids Does Pt have an Active Cancer Diagnosis on the Problem List?: No Quality: Stroke Does the patient have a stroke diagnosis?: No Physical Exam Vital Signs: Vital Signs: Last Vital Signs Temp 97.4 F 07/06/24 11:39 Pulse 80 07/06/24 11:39 Resp 18 07/06/24 11:39 BP 171/99 H 07/06/24 11:39 Pulse Ox 96 07/06/24 11:39 O2 Del Method Room Air 07/06/24 11:39 BMI result Body Mass Index 21.5 General: AOx3, no acute distress Resp: crackles bilateral lung bases CVS: RRR, s1s2 heard. GI: +BS, NT, no distention Skin: Warm, dry Neuro: Cranial nerves II-XII grossly intact bilaterally. Motor grossly intact bilaterally Extremities: No LE edema DS: Data Data Completed and Pending Labs on day of discharge: Laboratory Results - last 24 hr 07/06/24 07:13 WBC 7.7 RBC 4.61 Hgb 14.6 Hct 41.9 L MCV 90.9 MCH 31.7 MCHC 34.8 RDW 12.4 Plt Count 234 MPV 8.4 L Immature Gran % (Auto) 0.5 H Neut % (Auto) 55.4 Lymph % (Auto) 28.4 Surry % (Auto) 9.3 Eos % (Auto) 6.3 H Baso % (Auto) 0.1 Lymph # (Auto) 2.2 Surry # (Auto) 0.7 Eos # (Auto) 0.5 H Baso # (Auto) 0.0 Abs Immat Gran (auto) 0.04 H Absolute Neuts (auto) 4.3 Absolute Nucleated RBC 0.000 Nucleated RBC % (auto) 0.0 Sodium 140 Potassium 4.3 D Chloride 108 Carbon Dioxide 24 Anion Gap 12 BUN 12 Creatinine 1.05 Estim Creat Clear Calc 50.0 Estimated GFR > 60 Random Glucose 95 Calcium 8.5 Discharge Plan Discharge Anticipated Discharge Date/Time: 07/06/24 11:45 Patient Disposition: Home, Self-Care Discharge Diagnosis: Syncope Referrals: Kashif Ly MD [Primary Care Provider] - 1 Week Discharge Medications: Held Xtandi 80 mg Tablet 160 mg PO DAILY Qty: 60 3RF Hold Instructions: Resume on 07/18/24. Discharge Orders: Discharge Order (Routine); Ordered 07/06/24 Ordered By: Salomon Jacques Diet: Advance to usual diet Activity on Discharge: As tolerated Stand Alone Forms: Patient Portal Discharge page Print Language: Indonesian Care Plan Goals: recovery from syncope Health Concerns: syncope Plan of Treatment: drink plenty of fluid No driving until you see the ranch helper and the cause of the syncope is detemined, if not you have to stop driving for 6 months without having any further syncope episode Assessment: see above
--- NOTE | 2024-07-06 14:45 | MHC.CM.PN ---
PT MEDICALLY CLEARED FOR DC HOME SELF CARE, PT WILL ARRANGE TRANSPORT.
== END 2024-07-06 15:21 | disposition home or self-care (01) | DRG 312 ==
LOC: HO.ED 18:28 → HO.EDOVER 20:56 → HO.IMC 07-05 12:59
PROVIDERS: Internal Medicine; Nurse Practitioner Family; Admitting Provider Physician Assistant; Emergency Provider Emergency Medicine; PCP Internal Medicine; Visit Provider Internal Medicine
DX: I95.1 Orthostatic hypotension (principal); C79.51 Secondary malignant neoplasm of bone; T38.6X5A Adverse effect of antigonadotrophins, antiestrogens, antiandrogens, not elsewhere classified, initial encounter; C61 Malignant neoplasm of prostate; Z66 Do not resuscitate; R03.0 Elevated blood-pressure reading, without diagnosis of hypertension; Z20.822 Contact with and (suspected) exposure to COVID-19; Z79.899 Other long term (current) drug therapy
CPT/HCPCS: 0241U; 36415; 70551; 71045; 80048; 80053; 81001; 82533; 83690; 83735; 83880; 84484; 85025; 85027; 85610; 93005; 93306; 95816; 96360; 96361; 97162; 99222; 99285; J1650; J7120

== ENCOUNTER → 2024-07-04 17:02 | Outpatient (BNV) | payer MEDICARE, OTHER, SELFPAY | PROVIDERS: Admitting Provider Physician Assistant; Emergency Provider Emergency Medicine; PCP Internal Medicine; Visit Provider Internal Medicine Cardiovascular Disease | DX: R55 Syncope and collapse (principal); R94.31 Abnormal electrocardiogram [ECG] [EKG] | CPT/HCPCS: 93010 ==

== ENCOUNTER 2024-07-04 20:55 | Outpatient (BNV) | payer MEDICARE, OTHER, SELFPAY | END 2024-07-05 07:00 | PROVIDERS: Admitting Provider Physician Assistant; Emergency Provider Emergency Medicine; PCP Internal Medicine; Visit Provider Internal Medicine Cardiovascular Disease | DX: I35.1 Nonrheumatic aortic (valve) insufficiency (principal) | CPT/HCPCS: 93306 ==

== ENCOUNTER → 2024-07-04 20:55 | Outpatient (BNV) | payer MEDICARE, OTHER, SELFPAY | PROVIDERS: Admitting Provider Physician Assistant; Emergency Provider Emergency Medicine; PCP Internal Medicine; Visit Provider Internal Medicine Cardiovascular Disease | DX: R55 Syncope and collapse (principal) | CPT/HCPCS: 99222 ==

== ENCOUNTER → 2024-07-04 20:55 | Outpatient (BNV) | payer MEDICARE, OTHER, SELFPAY | PROVIDERS: Admitting Provider Physician Assistant; Emergency Provider Emergency Medicine; PCP Internal Medicine; Visit Provider Psychiatry & Neurology Neurology | DX: R55 Syncope and collapse (principal) | CPT/HCPCS: 99222 ==

== ENCOUNTER → 2024-07-04 20:55 | Outpatient (BNV) | payer MEDICARE, OTHER, SELFPAY | PROVIDERS: Admitting Provider Physician Assistant; Emergency Provider Emergency Medicine; PCP Internal Medicine; Visit Provider Internal Medicine | DX: R55 Syncope and collapse (principal); C61 Malignant neoplasm of prostate; C79.51 Secondary malignant neoplasm of bone | CPT/HCPCS: 99222; 99231; 99232 ==

== ENCOUNTER → 2024-07-27 13:53 | Outpatient (REF) | payer MEDICARE, OTHER, SELFPAY | LOC: HO.CARD 13:53 | PROVIDERS: PCP Internal Medicine; Visit Provider Internal Medicine Cardiovascular Disease | DX: R55 Syncope and collapse (principal) | CPT/HCPCS: 93270 ==

== ENCOUNTER → 2024-07-27 13:59 | Outpatient (BNV) | payer MEDICARE, OTHER, SELFPAY | PROVIDERS: PCP Internal Medicine; Visit Provider Internal Medicine | DX: I47.10 Supraventricular tachycardia, unspecified (principal) | CPT/HCPCS: 93272 ==

== ENCOUNTER 2024-09-07 15:02 | Outpatient (AMB) | payer MEDICARE, OTHER, SELFPAY ==
[2024-09-07 15:03] VITALS: BP 128/84; PULSE 106; BMI 23.5
--- NOTE | 2024-09-07 15:03 | MHC.OFFVIS ---
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 Comes for follow-up after a syncopal event. He has not had any recurrent syncopal events. He is pretty adamant that this happened after he was started on prostate cancer therapy and does not want to pursue any other therapy. He said he remains pretty active for his age. His event monitor showed overall normal sinus rhythm with rare ectopy but 1 episode of 5 beat run of nonsustained ventricular tachycardia. His echo she was mildly reduced LV ejection fraction 45-50%. 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 Review of Systems Const Denies chills, Denies fatigue, Denies fever(s), Denies frequent falls, Denies weakness, Denies weight gain and Denies weight loss ENT Denies dizziness Card Denies chest pain, Denies leg edema, Denies lightheadedness, Denies palpitations, Denies dyspnea, Denies dyspnea on exertion, Denies orthopnea and Denies other (loss of consciousness) Resp Denies cough, Denies dyspnea and Denies dyspnea on exertion GI Denies hematochezia and Denies change in stool character Musc Denies abnormal gait, Denies muscle weakness, Denies numbness, Denies radiating pain into limb and Denies tingling Neuro Denies abnormal gait, Denies dizziness, Denies frequent falls, Denies numbness, Denies tingling and Denies weakness Endo Denies fatigue and Denies palpitations Physical Exam Vital Signs: Last Vital Signs Pulse 106 H 09/07/24 15:03 BP 128/84 09/07/24 15:03 BMI result Body Mass Index 23.5 Const General: cooperative, comfortable, no acute distress, alert and awake Nutritional Appearance: average body habitus Orientation/consciousness: patient oriented x3 Neck Neck: Yes trachea midline, Yes supple and Yes no JVD Resp Effort & Inspection: normal respiratory effort Auscultation: clear to auscultation bilaterally Cardio Jugular venous distension: no JVD Palpation: normal PMI Rate: regular rate Rhythm: regular rhythm Heart sounds: S1 normal heart sound present, S2 normal heart sound present, no click, no gallops and no murmurs Skin General skin exam: no rashes or lesions noted and ecchymosis Neuro General: patient oriented x3 Extrem General: Yes no clubbing, cyanosis or edema Assessment & Plan Assessment & Plan (1) Syncope: Code(s): R55 - Syncope and collapse Category: Medical Qualifiers: Syncope type: unspecified Qualified Code(s): R55 - Syncope and collapse Plan: Patient with episode of syncope which appears to be more orthostatic in nature. He has not had any recurrent episodes. Advised to maintain orthostatic precautions. Advised to maintain adequate hydration. (2) Nonsustained ventricular tachycardia: Code(s): I47.29 - Other ventricular tachycardia Category: Medical Plan: Nonsustained ventricular tachycardia 1 episode on event monitor with mildly reduced LV ejection fraction. He might have ischemic heart disease although he prefers not to pursue any further workup. We also discussed about potential therapy with metoprolol he declines any new medical interventions. He said he is doing well and does not want any changes in his lifestyle or any new medications. Will follow up in the clinic if need be. Thank you for allowing me to partake in his care Coding Level of Care Code Est Pt Level 4 (08590) Complex EM visit Add On G2211 Diagnoses Syncope R55 Syncope type: unspecified Nonsustained ventricular tachycardia I47.29
== END 2024-09-07 15:24 | disposition home or self-care (01) ==
LOC: HO.HCS 15:02
PROVIDERS: PCP Internal Medicine; Visit Provider Internal Medicine Cardiovascular Disease
DX: R55 Syncope and collapse (principal); I47.29 Other ventricular tachycardia
CPT/HCPCS: 99214; G2211

== ENCOUNTER → 2024-09-07 15:02 | Outpatient (BNVA) | payer MEDICARE, OTHER, SELFPAY | PROVIDERS: PCP Internal Medicine; Visit Provider Internal Medicine Cardiovascular Disease | DX: I47.29 Other ventricular tachycardia (principal); R55 Syncope and collapse | CPT/HCPCS: 99212 ==

== ENCOUNTER 2024-12-03 17:07 | Emergency (ER) | payer MEDICARE, OTHER, SELFPAY ==
--- NOTE | ~2024-12-03 | XR_ITS ---
CLINICAL HISTORY: Anterior AK, back pain, evaluate mediastinum Single view of the chest. COMPARISON: XR chest dated 07/03/24 at 14:21 EST FINDINGS: Low lung volumes. Normal heart size. Minimal linear atelectasis along the left lung base. No pleural effusion or pneumothorax. No acute fracture. [id number] spondylosis. IMPRESSION: 1. Low lung volumes. Minimal linear atelectasis along the left lung base. This document has been electronically signed by: Sree Mccain MD on 12/03/2024 18:31:30
--- NOTE | 2024-12-03 17:09 | ECG_ITS ---
Test Reason : CHEST PAIN Blood Pressure : */* mmHG Vent. Rate : 124 BPM Atrial Rate : 124 BPM P-R Int : 130 ms QRS Dur : 80 ms QT Int : 306 ms P-R-T Axes : 52 5 48 degrees QTcB Int : 439 ms Sinus tachycardia with occasional Premature ventricular complexes and Fusion complexes Anterior infarct , possibly acute ACUTE MD / STEMI Abnormal ECG When compared with ECG of 04-Jul-2024 17:19, Fusion complexes are now Present Premature ventricular complexes are now Present Anterior infarct is now Present ST elevation now present in Anterior leads Referred By: Amina Osuna Electronically Signed By: TOMMY BABCOCK MD
--- NOTE | 2024-12-03 17:14 | ED.CHESTPAIN ---
HPI - Chest Pain General Chief Complaint: Chest Pain Stated Complaint: chest [pain Time Seen by Provider: 12/03/24 17:31 Source: patient and family (Son) Mode of arrival: ambulatory Limitations: no limitations History of Present Illness ED Provider: Dr. Serg Navarrete HPI narrative: 84-year-old male with a history of nonsustained V-tach, syncope, prostate cancer, metastatic to bone receiving chemotherapy who presents emergency department for evaluation of sternal chest pain /heartburn like pain which started after he finished mowing his lawn a proximally 1 hour prior to coming to the emergency department. Patient states he has had similar heartburn like pain in the past. The pain does not radiate to his neck, jaw, back or down his arms. He denied associated lightheadedness, dizziness, nausea, vomiting, diaphoresis. At the time my evaluation he states that he is pain-free. EKG done at triage revealed an anterior wall SC with ST segment elevations V2 through V5. Patient was brought back into the emergency department as an acute STEMI. Related Data Home Medications ?Medication ?Instructions ?Recorded ?Confirmed meclizine 25 mg tablet 25 mg PO DAILY PRN Vertigo 09/29/24 10/19/24 Previous Rx's ?Medication ?Instructions ?Recorded loperamide 2 mg tablet (Imodium 2 mg PO Q4H PRN Diarrhea #60 tabs 09/22/24 A-D) ondansetron 8 mg disintegrating 8 mg PO Q8H PRN nausea and 09/22/24 tablet vomiting #60 tabs prednisone 10 mg tablet 10 mg PO DIRECTED #60 tabs 09/29/24 omeprazole 20 mg capsule,delayed 20 mg PO DAILY #90 caps 10/08/24 release Allergies Allergy/AdvReac Type Severity Reaction Status Date / Time amoxicillin [From Augmentin] Allergy Severe tongue/facial Verified 12/03/24 17:25 swelling clavulanic acid Allergy Severe tongue/facial Verified 12/03/24 17:25 [From Augmentin] swelling Review of Systems Review of Systems: Yes all other systems are reviewed and are negative [facility] Past Medical History [facility] Narrative: Social history: He denies tobacco and alcohol use. He denies drug use. 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 Physical Exam Vital Signs: Vital Signs: Last Vital Signs Temp 98.1 F 12/03/24 17:48 Pulse 130 H 12/03/24 17:48 Resp 18 12/03/24 17:48 BP 169/118 H 12/03/24 17:48 Pulse Ox 98 12/03/24 17:48 O2 Del Method Room Air 12/03/24 17:48 BMI result Body Mass Index 24.5 Vital signs blood pressure 169/ 118, heart rate 130, respiratory rate 18, temperature 98.1 degrees F orally, O2 saturation 98% on room air Exam: General: Awake, alert in no distress Head: Normocephalic, atraumatic EENT: PERRL, Lids normal, sclera normal, conjunctiva normal, nose normal , ears normal, throat without erythema or exudates Neck: Supple, no adenopathy Lung: breath sounds symmetric, no wheezing, rales or rhonchi Chest: symmetric movement, nontender Heart: regular rate and rhythm, normal S1, S2 no murmurs or rubs Abdomen: soft, non-tender, nondistended, normal bowel sounds Back: no vertebral tenderness, no CVAT Extremities: no deformities, moves all extremities symmetrically. Patient had symmetric radial pulses and femoral pulses Neuro: Awake, alert, oriented, normal speech, cranial nerves intact, moves all extremities symmetrically Psych: Pleasant, cooperative Medications Administered Discontinued Medications Generic Name Dose Route Start Last Admin Trade Name Freq PRN Reason Stop Dose Admin Aspirin 162 mg 12/03/24 17:15 12/03/24 17:20 Aspirin 81 Mg Tab.Chew PO 12/03/24 17:16 162 mg ONCE STA Administration Atorvastatin Calcium 80 mg 12/03/24 17:15 12/03/24 17:25 Atorvastatin Calcium 80 Mg Tablet PO 12/03/24 17:16 80 mg ONCE ONE Administration Heparin Sodium (Porcine) 4,000 unit 12/03/24 17:22 12/03/24 17:25 Heparin Sodium,Porcine 5,000 Unit/Ml Vial IVPUSH 12/03/24 17:23 4,000 unit ONCE ONE Administration Medical Decision Making Medical Decision Making MDM Narrative: 84-year-old male with a history of nonsustained V-tach, syncope, prostate cancer, metastatic to bone receiving chemotherapy who presents emergency department for evaluation of sternal chest pain /heartburn like pain which started after he finished mowing his lawn a proximally 1 hour prior to coming to the emergency department. Patient states he has had similar heartburn like pain in the past. The pain does not radiate to his neck, jaw, back or down his arms. He denied associated lightheadedness, dizziness, nausea, vomiting, diaphoresis. At the time my evaluation he states that he is pain-free. EKG done at triage revealed an anterior wall SC with ST segment elevations V2 through V5. Patient was brought back into the emergency department as an acute STEMI. vital signs revealed an elevated blood pressure and elevated heart rate otherwise unremarkable. Physical examination was normal. Patient had normal peripheral pulses. Differential diagnosis: Includes but is not limited to Myocardial infarction, myocardial ischemia, GERD Course: 17:43 patient's 12 EKG was consistent with a acute anterior wall SC. patient was given atorvastatin 80 mg orally, aspirin 162 mg orally and heparin 4000 unit IV bolus. Chest x-ray did reveal a slight widening of his mediastinum but I do not think that the patient has dissection at this time given the fact that he is pain-free And he is not having any back pain. Also has symmetric peripheral pulses. I did discuss the patient's presentation with the covering intervention brown stock washer at [facility], Dr. Dowell who accepted the patient as an ED to ED transfer with the plan to go to the ED cardiac catheterization lab. my independent interpretation patient's laboratory evaluation is as follows: WBC elevated 14,700. no anemia with an H&H of 15.4 and 47.3. BUN elevated 24 with a normal creatinine of 1.13 with a GFR of greater than 60. Glucose elevated 151. AST elevated 57. High sensitive troponin I is elevated at 329.1 which is consistent with a acute myocardial infarction. Admission/Observation Consideration of admission/observation: Escalation of care including admission/observation considered ( Yes) Consult Healthcare Provider Management of the patient was discussed with: Quality Assurance Monitor Chassis ( [facility] clockmaker) Lab Data 12/03/24 17:25 12/03/24 17:25 Labs: Lab Results 12/03/24 12/03/24 Range/Units 17:24 17:25 WBC 14.7 H (4.8-10.8) X10*3/uL RBC 5.00 (4.60-5.80) X10*6/uL Hgb 15.4 (14.0-18.0) g/dl Hct 47.3 (42.0-52.0) % MCV 94.6 (80.0-98.0) fL MCH 30.8 (27.0-33.0) pg MCHC 32.6 (31.0-36.0) g/dl RDW 15.8 (11.0-16.0) % Plt Count 200 (160-400) X10*3/uL MPV 8.9 L (9.4-12.4) fL Immature Gran % (Auto) 2.4 H (0.0-0.4) % Neut % (Auto) 86.3 H (45-73) % Lymph % (Auto) 8.4 L (20-40) % Owen % (Auto) 2.4 (2-11) % Eos % (Auto) 0.0 (0-4) % Baso % (Auto) 0.5 (0-2) % Lymph # (Auto) 1.2 (1.2-4.9) X10*3/uL Owen # (Auto) 0.4 (0.1-1.2) X10*3/uL Eos # (Auto) 0.0 (0.0-0.4) X10*3/uL Baso # (Auto) 0.1 (0.0-0.2) X10*3/uL Abs Immat Gran (auto) 0.35 H (0.00-0.03) X10*3/uL Absolute Neuts (auto) 12.7 H (2.0-8.3) x10*3/uL Absolute Nucleated RBC 0.020 H (0.0-0.012) X10*3/uL Nucleated RBC % (auto) 0.1 (0.0-0.2) /100WBC Sodium 141 (135-145) mmol/L Potassium 4.4 (3.3-5.1) mmol/L Chloride 103 (96-108) mmol/L Carbon Dioxide 24 (22-29) mmol/L Anion Gap 18 (12-20) BUN 24 H (9-16) mg/dL Creatinine 1.13 (0.5-1.4) mg/dL Estim Creat Clear Calc 45.3 Estimated GFR > 60 Random Glucose 151 H (60-115) mg/dL Calcium 9.6 (8.4-10.2) mg/dL Magnesium 2.2 (1.6-2.6) mg/dL Total Bilirubin 0.5 (0.0-1.0) mg/dL AST 57 H (5-37) U/L ALT 23 (0-40) U/L Alkaline Phosphatase 42 (39-117) U/L Troponin I High Sens 329.1 H* D (<3.5-35.0) ng/L Total Protein 7.2 (6.5-8.0) g/dL Albumin 4.3 (3.5-5.0) g/dL Independent Interpretation I performed an independent interpretation of an: EKG Interpretation: Twelve EKG done on 12/04/2023 at 17:08 hours was interpreted by me as follows: Sinus tachycardia with a rate of 128, ST segment elevation V 1 through V5 compared to an EKG dated 07/04/2024 at 17:19 hours, the ST segment elevations are new. My independent interpretation of the patient's one-view chest x-ray is as follows: Patient does have a slightly widened mediastinum otherwise no acute findings Independent Historian Clinical information obtained from an independent historian. History obtained from or confirmed by: Other ( son) Critical Care Time Critical Care Time Critical Care Time: Yes Total Critical Care Time: 35 Attestation: Critical Care: The patient was critically ill with a high probability of imminent or life threatening deterioration. I spent greater than 30 minutes of discontinuous time evaluating the patient,delivering critical care at the bedside, discussing and evaluating pertinent data with consultants. Critical care time does not include time spent performing separately billable procedures or teaching. Total time spent performing critical care was 35 minutes. Discharge Plan Discharge Clinical Impression: Acute ST segment elevation SC Patient Disposition: [facility] Transfer Details: ED to ED transfer [facility], accepting clockmaker, Dr. Dowell Prescriptions: No Action ondansetron 8 mg Tablet,Disintegrating 8 mg PO Q8H PRN (Reason: nausea and vomiting ) Qty: 60 0RF loperamide [Imodium A-D] 2 mg Tablet 2 mg PO Q4H PRN (Reason: Diarrhea) Qty: 60 0RF Rx Instructions: administer after each loose stool until symptoms controlled; do not exceed 8 mg per 24 hrs prednisone 10 mg Tablet 10 mg PO DIRECTED Qty: 60 3RF Rx Instructions: see taper instructions meclizine 25 mg Tablet 25 mg PO DAILY PRN (Reason: Vertigo) omeprazole 20 mg Capsule,Delayed Release(Dr/Ec) 20 mg PO DAILY Qty: 90 3RF Interventions: Acute Care Transfer Worksheet (ED) Last Done: 12/03/24 17:48 Print Language: St Helenian
[2024-12-03] MEDS: Aspirin 81 MG TAB.CHEW 162 MG PO (17:20)
[2024-12-03 17:21] VITALS: BMI 24.3
[2024-12-03 17:22] VITALS: BP 169/118; PULSE 130; RESP 18; TEMP 36.7; O2SAT 98; BMI 24.5
[2024-12-03] MEDS: Heparin Sodium,Porcine 5,000 UNIT/ML VIAL 4000 UNIT IVPUSH (17:25)
[2024-12-03] MEDS: Atorvastatin Calcium 80 MG TABLET PO (17:25)
[2024-12-03 17:29] LABS: MANUAL DIFF FLAG NO
[2024-12-03 17:32] LABS: Basophils Absolute Auto 0.1 X10*3/uL (0.0-0.2); Basophils Percent Auto 0.5 % (0-2); Hematocrit 47.3 % (42.0-52.0); Hemoglobin 15.4 g/dl (14.0-18.0); Imm Gran Abs Auto 0.35 X10*3/uL (0.00-0.03); Imm Gran Pct Auto 2.4 % (0.0-0.4); Lymphocytes Absolute Auto 1.2 X10*3/uL (1.2-4.9); Lymphocytes Percent Auto 8.4 % (20-40); Mean Corpuscular HGB Conc 32.6 g/dl (31.0-36.0); Mean Corpuscular Hemoglobin 30.8 pg (27.0-33.0); Mean Corpuscular Volume 94.6 fL (80.0-98.0); Mean Platelet Volume 8.9 fL (9.4-12.4); Monocytes Absolute Auto 0.4 X10*3/uL (0.1-1.2); Monocytes Percent Auto 2.4 % (2-11); NRBC Pct Auto 0.1 /100WBC (0.0-0.2); Neutrophils Absolute Auto 12.7 x10*3/uL (2.0-8.3); Neutrophils Percent Auto 86.3 % (45-73); Platelet Count 200 X10*3/uL (160-400); Red Cell Distribution Width 15.8 % (11.0-16.0); White Blood Count 14.7 X10*3/uL (4.8-10.8)
--- NOTE | 2024-12-03 17:33 | PC.NURSE ---
transfered to EMS stretcher at 1930.
--- NOTE | 2024-12-03 17:39 | PC.NURSE ---
attempted to give verbal nurse to nurse report to [facility] laboratory assistant at [phone]
[2024-12-03 17:47] LABS: Alanine Aminotransferase 23 U/L (0-40); Albumin Level 4.3 g/dL (3.5-5.0); Alkaline Phosphatase 42 U/L (39-117); Anion Gap 18 (12-20); Aspartate Amino Transferase 57 U/L (5-37); Bilirubin Total 0.5 mg/dL (0.0-1.0); Blood Urea Nitrogen 24 mg/dL (9-16); Calcium 9.6 mg/dL (8.4-10.2); Carbon Dioxide 24 mmol/L (22-29); Chloride 103 mmol/L (96-108); Creatinine Clr Calc Pharmacy 45.3; Estimated Glomerular Filt Rate > 60; Glucose Random 151 mg/dL (60-115); Magnesium 2.2 mg/dL (1.6-2.6); Potassium 4.4 mmol/L (3.3-5.1); Sodium 141 mmol/L (135-145); Total Protein 7.2 g/dL (6.5-8.0)
[2024-12-03 17:48] VITALS: BP 169/118; PULSE 130; RESP 18; TEMP 36.7; O2SAT 98
[2024-12-03 17:58] LABS: Troponin-I High Sensitivity 329.1 ng/L (<3.5-35.0)
--- NOTE | 2024-12-03 17:59 | PC.NURSE ---
verbal nurse to nurse report given to nicolasa RN at [facility] unit at [facility] [phone]
[2024-12-03 18:05] LABS: Prothrombin Time 11.3 SEC (10.9-12.4)
[2024-12-03 18:08] LABS: Partial Thromboplastin Time 29.9 SEC (26.0-36.8)
== END 2024-12-03 17:48 | disposition short-term general hospital (02) ==
PROVIDERS: Physician Assistant Medical; Emergency Provider Emergency Medicine Emergency Medical Services; PCP Internal Medicine
DX: I21.3 ST elevation (STEMI) myocardial infarction of unspecified site (principal); R07.89 Other chest pain; Z79.899 Other long term (current) drug therapy
CPT/HCPCS: 36415; 71045; 80053; 83735; 84484; 85025; 85610; 85730; 93005; 96374; 99285; J1644

== ENCOUNTER → 2024-12-03 17:09 | Outpatient (BNV) | payer MEDICARE, OTHER, SELFPAY | PROVIDERS: Emergency Provider Emergency Medicine Emergency Medical Services; PCP Internal Medicine; Visit Provider Internal Medicine Cardiovascular Disease | DX: R07.9 Chest pain, unspecified (principal); R00.0 Tachycardia, unspecified; R94.31 Abnormal electrocardiogram [ECG] [EKG] | CPT/HCPCS: 93010 ==

== ENCOUNTER → 2024-12-03 17:24 | Outpatient (BNV) | payer MEDICARE, OTHER, SELFPAY | PROVIDERS: Emergency Provider Emergency Medicine Emergency Medical Services; PCP Internal Medicine; Visit Provider Radiology Diagnostic Radiology | DX: R07.9 Chest pain, unspecified (principal) | CPT/HCPCS: 71045 ==

== ENCOUNTER 2024-12-25 13:41 | Outpatient (AMB) | payer MEDICARE, OTHER, SELFPAY ==
[2024-12-25 13:57] VITALS: BP 119/67; PULSE 95; BMI 23.0
--- NOTE | 2024-12-25 13:57 | MHC.OFFVIS ---
Vital Signs 12/25/24 13:57 Height 5 ft 8 in Weight 151 lb BMI 23.0 BP 119/67 Blood Pressure Location Lt brachial Position Sitting Pulse 95 Pulse Source Monitor [place] [facility] [place] [place] 12/05-Cath Intake Note: follow up cardiac cath 12/03/[address] [facility] [place]. Pt has no complaints Hot Dipper Required: No Accompanied by: Daughter Allergies amoxicillin [From Augmentin] Allergy (Severe, Verified 12/25/24 14:01) tongue/facial swelling clavulanic acid [From Augmentin] Allergy (Severe, Verified 12/25/24 14:01) tongue/facial swelling Medication List - Last Reconciled 12/25/24 by China Jose NP-C aspirin 81 mg PO DAILY atorvastatin 80 mg PO BEDTIME calcium 600 mg PO DAILY carvedilol 3.125 mg PO BID leuprolide acetate (6 month) (Lupron Depot) 45 mg IM [id number] loperamide (Imodium A-D) 2 mg PO Q4H PRN losartan 25 mg PO DAILY meclizine 25 mg PO DAILY PRN omeprazole 20 mg PO DAILY ondansetron 8 mg PO Q8H PRN prednisone 10 mg PO DIRECTED ticagrelor 90 mg PO BID HPI HPI [facility] [place] [place] 12/05-Cath: Details: Harshad is an 84-year-old male with past medical history of syncope, mild cardiomyopathy, prostate CA with bone Mets who recently presented to [facility] with epigastric area discomfort and ruled in for acute anterior STEMI. He was transferred to [facility] for cardiac catheterization showing mid LAD 99% stenosis and to APARNA placed. Echocardiogram showed EF 30-35% with anterior wall motion abnormality. He was started on appropriate med management and now presents for follow-up. Today he reports he has been doing well since his hospital discharge. He has not had any recurrent epigastric area discomfort. He denies any chest discomfort at rest or with activity. He has no concerning shortness of breath, no PND, orthopnea or edema. No heart palpitations, lightheadedness, presyncope, syncope. He is undergoing chemotherapy which he tells me he tolerates it well. He starts cardiac rehab tomorrow. Daughter is present. 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 Review of Systems Const All systems reviewed & are unremarkable except as noted in HPI and below Denies chills, Reports fatigue, Denies fever(s), Denies frequent falls, Denies weakness, Denies weight gain and Denies weight loss ENT Denies dizziness Card Denies chest pain, Denies leg edema, Denies lightheadedness, Denies palpitations, Denies dyspnea, Denies dyspnea on exertion, Denies orthopnea and Denies other (loss of consciousness) Resp Denies cough, Denies dyspnea and Denies dyspnea on exertion GI Denies hematochezia and Denies change in stool character Musc Denies abnormal gait, Denies muscle weakness, Denies numbness, Denies radiating pain into limb and Denies tingling Neuro Denies abnormal gait, Denies dizziness, Denies frequent falls, Denies numbness, Denies tingling and Denies weakness Endo Reports fatigue and Denies palpitations Physical Exam Vital Signs: Last Vital Signs Pulse 95 12/25/24 13:57 BP 119/67 12/25/24 13:57 BMI result Body Mass Index 23.0 Const General: cooperative, healthy appearing, comfortable and no acute distress Orientation/consciousness: patient oriented x3 Neck Neck: Yes normal visual inspection Resp Effort & Inspection: normal respiratory effort Auscultation: clear to auscultation bilaterally, rales (right base), no rhonchi and no wheezes Cardio Rate: regular rate Rhythm: regular rhythm Heart sounds: S1 normal heart sound present, S2 normal heart sound present, no gallops, no murmurs and no rubs Neuro General: patient oriented x3 Extrem Other: right radial cath healing well - easily palpable right radial pulse, right hand assessment normal General: Yes normal to inspection, No no pedal edema and No calf tenderness Psych Appearance: grossly normal Mental Status: mental status grossly normal Speech and movement: Normal speech and movement present Assessment & Plan Assessment & Plan (1) Acute ST segment elevation VA: Code(s): I21.3 - ST elevation (STEMI) myocardial infarction of unspecified site Category: Medical Plan: Acute anterior STEMI 12/03/2024. His symptom was epigastric area discomfort. He was found to have mid LAD 99% stenosis and stents were placed in the diagonal and proximal to mid LAD. Echocardiogram done at [facility] [place] [place] on 12/04/2024 showed EF 30-35%, akinesis of the mid to distal anterior septal wall and apex. He has not had recurrent epigastric or chest area discomfort. He does not appear fluid overloaded on exam. He starts cardiac rehab tomorrow. Continue aspirin indefinitely. Continue Brilinta uninterrupted for 1 year. Continue high-dose atorvastatin with ideal LDL goal less than 70. Continue carvedilol and losartan for neurohormonal modulation. His pulse rate is elevated today, resting 95. Will increase carvedilol to 6.25 mg b.i.d.. Signs and symptoms of angina reviewed. Will check limited echo 6 weeks post VA to reassess EF and wall motion. Cardiology follow-up 3 months, sooner if needed. (2) CAD (coronary artery disease): Code(s): I25.10 - Atherosclerotic heart disease of [place] coronary artery without angina pectoris Category: Medical Plan: New finding of coronary artery disease as above. (3) S/P cardiac cath: Comment: 12/03/2024, left main less than 30% stenosis, mid LAD 99% stenosis, stent placed in the diagonal and in the proximal to mid LAD, left circumflex proximal 40% stenosis, RCA mild irregularities. Code(s): Z98.890 - Other specified postprocedural states Category: Surgical Plan: Right radial catheterization site healing well. (4) Cardiomyopathy: Code(s): I42.9 - Cardiomyopathy, unspecified Category: Medical Plan: Echocardiogram from 07/05/2024 showed EF 45-50%, impaired relaxation. More recent echo following VA shows EF further reduced at 30-35% with anterior wall motion abnormality. He is on appropriate medications for neurohormonal modulation. Will check limited echocardiogram in 1 month. (5) Syncope: Code(s): R55 - Syncope and collapse Category: Medical Qualifiers: Syncope type: unspecified Qualified Code(s): R55 - Syncope and collapse Plan: History of syncopal event 06/2024 and was seen by Cardiology at that time. His episode was thought to be orthostatic in nature. He now tells me 1 of his chemotherapy meds was causing this symptom and he is no longer taking that medication. (6) Prostate cancer metastatic to bone: Code(s): C61 - Malignant neoplasm of prostate; C79.51 - Secondary malignant neoplasm of bone Category: Medical Plan: He is undergoing chemotherapy and follows with Dr. Klein (7) Hospital discharge follow-up: Code(s): Z09 - Encounter for follow-up examination after completed treatment for conditions other than malignant neoplasm Category: Medical Plan: Reviewed Plan I discussed the anterior wall myocardial infarction diagnosis, management options, and the importance of dual antiplatelet therapy for stent maintenance with the patient. We reviewed risks such as potential bleeding associated with Brilinta and aspirin. The patient was informed of the need for continued cholesterol management with atorvastatin and to follow a low-sodium diet to manage fluid retention. The rationale for increasing carvedilol for heart rate control was addressed, along with monitoring instructions for potential hypotension. Cardiac rehabilitation was recommended to improve cardiac function. Patient consented to the outlined plan including diagnostic testing and monitoring. Orders: Orders CA Echo Limited 1 Month I25.10 - Atherosclerotic heart disease of [place] coronary artery without angina pectoris, I42.9 - Cardiomyopathy, unspecified Lipid Panel 1 Month I25.10 - Atherosclerotic heart disease of [place] coronary artery without angina pectoris Medications: New carvedilol must administer with a meal/food dose increased 6.25 mg PO BID 60 tabs 5RF aspirin 81 mg PO DAILY 90 tabs 3RF atorvastatin 80 mg PO BEDTIME 90 tabs 3RF Changed From ticagrelor 90 mg PO BID To ticagrelor 90 mg PO BID 180 tabs 3RF 90 days Patient Instructions: - Continue taking all medications, including aspirin and Brilinta as prescribed. - Start cardiac rehabilitation sessions. - Monitor blood pressure and heart rate periodically - Limit salt intake in your diet. - Report any unusual symptoms, like chest pain, new shortness of breath or lightheadedness. - Follow up with your adult parole officer as scheduled. - Obtain echocardiogram in 1 month Patient was informed and verbally consented to the use of an ambient scribe for clinic note documentation during this visit. Visit time spent on chart review, interview, assessment, orders, documentation. Coding Level of Care Code Est Pt Level 4 (49907) Complex EM visit Add On G2211 Diagnoses Acute ST segment elevation VA I21.3 CAD (coronary artery disease) I25.10 S/P cardiac cath Z98.890 Cardiomyopathy I42.9 Syncope R55 Syncope type: unspecified Prostate cancer metastatic to bone C61; C79.51 Hospital discharge follow-up Z09 Time Spent (min) 36
== END 2024-12-25 14:37 | disposition home or self-care (01) ==
LOC: HO.HCS 13:42
PROVIDERS: PCP Internal Medicine; Visit Provider Nurse Practitioner Family
DX: I21.3 ST elevation (STEMI) myocardial infarction of unspecified site (principal); I25.10 Atherosclerotic heart disease of native coronary artery without angina pectoris; Z98.890 Other specified postprocedural states; I42.9 Cardiomyopathy, unspecified; R55 Syncope and collapse; C61 Malignant neoplasm of prostate; C79.51 Secondary malignant neoplasm of bone; Z09 Encounter for follow-up examination after completed treatment for conditions other than malignant neoplasm
CPT/HCPCS: 99214; G2211

== ENCOUNTER → 2024-12-25 13:41 | Outpatient (BNVA) | payer MEDICARE, OTHER, SELFPAY | PROVIDERS: PCP Internal Medicine; Visit Provider Nurse Practitioner Family | DX: I21.3 ST elevation (STEMI) myocardial infarction of unspecified site (principal); I25.10 Atherosclerotic heart disease of native coronary artery without angina pectoris; I42.9 Cardiomyopathy, unspecified; R55 Syncope and collapse; C61 Malignant neoplasm of prostate; C79.51 Secondary malignant neoplasm of bone; Z98.890 Other specified postprocedural states; Z09 Encounter for follow-up examination after completed treatment for conditions other than malignant neoplasm | CPT/HCPCS: 99212 ==

== ENCOUNTER 2025-01-04 14:34 | Outpatient (AMB) | payer MEDICARE, OTHER, SELFPAY ==
--- NOTE | 2025-01-04 14:43 | MHC.PC.OV ---
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 Accompanied by: Self / Same As Patient Allergies amoxicillin [From Augmentin] Allergy (Severe, Verified 01/04/25 14:44) tongue/facial swelling clavulanic acid [From Augmentin] Allergy (Severe, Verified 01/04/25 14:44) tongue/facial swelling Tobacco use date assessed: 01/04/25 Fall risk assessment: No Falls in past year Last assessed Fall Risk: 01/04/25 Dental Screening Dental Screen Date: 01/04/25 Did you have a dental visit in the last 12 months?: Yes Did you have a dental problem in the last 6 months where you did not have access to dental care?: No HPI HPI Comments History of Present Illness Details The patient is a 84 year old male with past medical history of hypertension, prostate cancer, BPH, hearing loss presenting for follow up. Hospitalized December at [facility] [place] [place] for C Diff colitis. Continues vancomycin until January 17. He is feeling better in this sense Hospitalized November for [place]. Received 2 stents. Denies chest pain, exertional dyspnea CV: Follows with cardiology. on losartan brilinta, lipitor. Blood pressure is well controlled. Urology: Follows with [facility] [place]. Prostate cancer-on chemotherapy. Follows with Dr Klein. Did not tolerate xtandi. ROS CONSTITUTIONAL: Denies weight loss, fever and chills. HEENT: Denies changes in vision and hearing. RESPIRATORY: Denies SOB and cough. CV: Denies palpitations and CP GI: Denies abdominal pain, nausea, vomiting and diarrhea. : Denies dysuria and urinary frequency. MSK: Denies new myalgia and joint pain. SKIN: Denies rash and pruritus. NEUROLOGICAL: Denies headache PSYCHIATRIC: Denies recent changes in mood. PHYSICAL EXAM: GENERAL: Alert and oriented x 3. NAD EYES: EOMI. Anicteric. HENT: Moist mucous membranes. No scleral icterus. No cervical lymphadenopathy. LUNGS: Clear to auscultation bilaterally. CARDIOVASCULAR: Regular rate and rhythm. No murmur. No JVD. ABDOMEN: Soft, non-tender +bs EXTREMITIES: No edema. Non-tender. SKIN: No rashes or lesions. Warm. NEUROLOGIC: No focal neurological deficits. CN II-XII grossly intact PSYCHIATRIC: Cooperative. Appropriate mood and affect [facility] Medical History Prostate cancer metastatic to bone Hemorrhoids Elevated PSA Surgical History Hx of prostate biopsy Family History (Updated 01/04/25 @ 15:01 by Fannie Lew MA) Mother No problems noted. Father No problems noted. 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 1. Little interest or pleasure in doing things: not at all 2. Feeling down, depressed, or hopeless: not at all 3. Trouble falling or staying asleep, or sleeping too much: not at all 4. Feeling tired or having little energy: not at all 5. Poor appetite or overeating: not at all 6. Feeling bad about yourself - or that you are a failure or have let yourself or your family down: not at all 7. Trouble concentrating on things, such as reading the newspaper or watching television: not at all 8. Moving or speaking so slowly that other people could have noticed. Or the opposite - being so fidgety or restless that you have been moving around a lot more than usual: not at all 9. Thoughts that you would be better off or of hurting yourself in some way: not at all Total score: 0 Depression Screening Interpretation: Negative Depression Screening Done: Yes 14156 - PHQ-9 Billing: Yes Source: Developed by Drs. Rolan L. BlakeLeah tiwari Kurt Kroenke and colleagues, with an educational derek from [employer]. Thrive Questionnaire Date Thrive assessed: 01/04/25 I am a: Patient Within the past 12 months, did the food you bought not last and you didn't have the money to get more?: Never true Within the past 12 months, did you worry whether your food would run out before you got money to buy more?: Never true Do you have trouble paying for medicines?: No Do you have trouble getting transportation to medical appointments?: No Do you have trouble paying your heating and electricity bill?: No Do you have trouble taking care of your child, family member or friend?: No Do you have trouble with day-to-day activities such as bathing, preparing meals, shopping, managing finances, etc.?: No Are you currently unemployed and looking for a job?: No Are you interested in more education?: No THRIVE Score: 0 AUDIT C Alcohol Use Questionnaire (AUDIT-C) 1. How often do you have a drink containing alcohol?: Never 3. How often do you have six or more drinks on one occasion?: Never Total Score: 0 IRVING-7 AMB Questionnaire IRVING-7 Date IRVING - 7 assessed: 01/04/25 Feeling nervous, anxious, or on edge: 0 = Not at all Not being able to stop or control worryin = Not at all Worrying too much about different things: 0 = Not at all Trouble relaxin = Not at all Being so restless that it is hard to sit still: 0 = Not at all Becoming easily annoyed or irritable: 0 = Not at all Feeling afraid as if something awful might happen: 0 = Not at all Total IRVING-7 score (0-4 normal; 5-9 mild; 10-14 moderate; 15-21 severe): 0 Source: Developed by Drs. Rolan Lozano, Husam Marks and colleagues, with an educational derek from [employer]. Physical exam (Primary Care) Vital Signs: Last Vital Signs Temp 97.1 F 01/04/25 14:54 Pulse 87 01/04/25 14:54 BP 120/72 01/04/25 14:54 Pulse Ox 98 01/04/25 14:54 Oxygen Delivery Method Room Air 01/04/25 14:54 BMI result Body Mass Index 22.2 Tobacco/Smoking Status: Tobacco use Status Tobacco use date assessed 01/04/25 01/04/25 14:45 Patient Tobacco Use Status Never used Tobacco 01/04/25 14:45 e-Cigarette/Vaping Use Never Used 01/04/25 14:45 PHQ-9: PHQ-9 Score PHQ-9: Total score 0 01/04/25 15:08 Depression Screening Interpretation: Negative Thrive Assessment: Date of Thrive Assessment Date Thrive assessed 01/04/25 01/04/25 14:45 Coding Level of Care Code New Pt Level 4 (03354) Diagnoses Hospital discharge follow-up Z09 S/P cardiac cath Z98.890 Prostate cancer metastatic to bone C61; C79.51 C. difficile colitis A04.72 Additional Codes PHQ-9 - 43653 - PHQ-9 Billing: Yes ([id number]) Assessment & Plan Assessment & Plan (1) Hospital discharge follow-up: Code(s): Z09 - Encounter for follow-up examination after completed treatment for conditions other than malignant neoplasm Category: Medical (2) S/P cardiac cath: Comment: 12/03/2024, left main less than 30% stenosis, mid LAD 99% stenosis, stent placed in the diagonal and in the proximal to mid LAD, left circumflex proximal 40% stenosis, RCA mild irregularities. Code(s): Z98.890 - Other specified postprocedural states Category: Surgical (3) Prostate cancer metastatic to bone: Code(s): C61 - Malignant neoplasm of prostate; C79.51 - Secondary malignant neoplasm of bone Category: Medical (4) C. difficile colitis: Code(s): A04.72 - Enterocolitis due to Clostridium difficile, not specified as recurrent Category: Medical Plan Establish care, hospital discharge Past medical, surgical, social history reviewed HTN-well controlled GERD is stable on PPI Continue vancomycin through course
[2025-01-04 14:54] VITALS: BP 120/72; PULSE 87; TEMP 36.2; O2SAT 98; BMI 22.2
--- OUTSIDE RECORDS SUMMARY | 2025-01-04 17:08 | XMS_ITS | Continuity of Care Document ---
Author Organization [facility] ter Address [address] [place] [id number]- Care Team Providers Care Television Announcer Name Role Phone Imelda EDMOND, Afia Rodriguez Primary Care Physician [phone] [id number] Date(s): 12/29/24 - 12/31/[address] [address]- Encounter Diagnosis Bandemia(Final) - 12/29/24 Prostate CA(Final) - 12/29/24 Colitis due to Clostridium difficile(Final) - 12/29/24 Discharge Disposition: A-D/C Home Attending Physician: Calderon EDMOND, Sandra Vaughn Admitting Physician: Sia Love DO Referring Physician: Not on Staff, Referring MD Encounter Type: Disch IP Allergies, Adverse Reactions, Alerts Substance Criticality Severity Reaction Reaction Severity Status Augmentin Active Medications aspirin 81 mg oral delayed release tablet = 81 mg, By Mouth, Daily, # 90 tablet, 0 Refills, Maintenance, 12/05/24 11:15:00 AM EDT, EC Tablet, [facility], Partial fill upon patient request if the prescription is for a schedule IIopioid drug., 172.72, cm, 12/03/24 18:09:00 EDT, Height, 43.5, kg, 12/03/24 18:09:00 EDT, Dry Weight Start Date: 12/05/24 Status: Ordered Quantity: 90.0 Unit: tablet Repeat number: 1 atorvastatin 80 mg oral tablet = 80 mg, By Mouth, Daily at bedtime, # 90 tablet, 0 Refills, Maintenance, 12/05/24 11:15:00 AM EDT, Tablet, [facility], Partial fill upon patient request if the prescription is for a schedule II opioid drug., 172.72, cm, 12/03/24 18:09:00 EDT, Height, 43.5, kg, 12/03/24 18:09:00 EDT, Dry Weight Start Date: 12/05/24 Status: Ordered Quantity: 90.0 Unit: tablet Repeat number: 1 Coreg 3.125 mg oral tablet 3.125 mg, Tablet, By Mouth, 12/31/24 9:00:00 AM EDT Start Date: 12/31/24 Stop Date: 12/31/24 Status: Completed Repeat number: 1 Coreg 3.125 mg oral tablet 3.125 mg, By Mouth, 2 times a day, # 180 tablet, Refills 0, Tot. Refills 0, Maintenance, 12/05/24 11:15:00 AM EDT, Route to Pharmacy Electronically, [facility], Partial fill upon patientrequest if the prescription is for a schedule II opioid drug., 172.72, cm, 12/03/24 18:09:00 EDT, Height, 43.5, kg, 12/03/24 18:09:00 EDT, Dry Weight Start Date: 12/05/24 Status: Ordered Quantity: 180.0 Unit: tablet Repeat number: 1 losartan 25 mg oral tablet 25 mg, Tablet, By Mouth, 12/31/24 9:00:00 AM EDT Start Date: 12/31/24 Stop Date: 12/31/24 Status: Completed Repeat number: 1 losartan 25 mg oral tablet 25 mg, By Mouth, Daily, # 90 tablet, Refills 0, Tot. Refills 0, Maintenance, 12/05/24 11:15:00 AM EDT, Route to Pharmacy Electronically, [facility] 3, Partial fill upon patient request if the prescription is for a schedule II opioid drug., 172.72, cm, 12/03/24 18:09:00 EDT, Height, 43.5,kg, 12/03/24 18:09:00 EDT, Dry Weight Start Date: 12/05/24 Status: Ordered Quantity: 90.0 Unit: tablet Repeat number: 1 Omeprazole = 20 mg, By Mouth, Daily, 0 Refills, Maintenance, 12/30/24 12:20:00 AM EDT, Partial fill upon patientrequest if the prescription is for a schedule II opioid drug. Start Date: 12/30/24 Status: Ordered Repeat number: 1 PredniSONE = 10 mg, By Mouth, Daily, 0 Refills, Maintenance, 12/03/24 8:57:00 PM EDT, Partial fill upon patientrequest if the prescription is for a schedule II opioid drug. Start Date: 12/03/24 Status: Ordered Repeat number: 1 ticagrelor 90 mg oral tablet 1 tablet = 90 mg, By Mouth, 2 times a day, # 180 tablet, 0 Refills, Maintenance, 12/05/24 11:15:00 AM EDT, Tablet, [facility], Partial fill upon patient request if the prescription is for a schedule II opioid drug., 172.72, cm, 12/03/24 18:09:00 EDT, Height, 43.5, kg, 12/03/24 18:09:00EDT, Dry Weight Start Date: 12/05/24 Status: Ordered Quantity: 180.0 Unit: tablet Repeat number: 1 vancomycin 125 mg oral capsule = 125 mg, By Mouth, Every 6 hours, December 31-December 18: 125 mg four times per day; January 11: 125 mg three times per day; January 2: 125 mg two times per day; January 25-: 125 mg once per day; February 01-: 125 mg every 2nd day (February 01, February 03, February 05, February 07); February 08-: 125 mg every 3rd day (, February 13, February 16), # 90 capsule, 0 Refills, Acute 02/16/25 12:30:00 PM EDT, 12/31/24 12:41:00 PM EDT, Capsule, [facility], Partial fill upon patient request if the prescription is for a schedule II opioid drug., 173, cm, 12/31/24 7:28:00 EDT, Height, 68.4, kg, 12/29/24 18:17:00 EDT, Dry Weight Start Date: 12/31/24 Stop Date: 02/16/25 Status: Ordered Quantity: 90.0 Unit: capsule Repeat number: 1 Results Radiology Reports * Exam Date Time Procedure Performing Provider Status 12/29/24 9:[address] Abd/Pelvis W/ IV Contrast Only Auth (Verified) Notes: (CT Abd/Pelvis W/ IV Contrast Only) Reason For Exam: RLQ abdominal pain;Other: RESULT: CT Abd/Pelvis W/ IV Contrast Only CT Abd/Pelvis W/ IV Contrast Only Hx of Present Illness: Weakness, N V D; Reason: Other:; RLQ abdominal pain; Clinical Question(s): Appendicitis TECHNIQUE: Spiral CT through the abdomen and pelvis with IV contrast formatted in 3 planes. 100 cc of Isovue 300 was administered intravenously. This study was performed without oral contrast. Weight-based protocol using automatic tube modulation was used to optimize exposure parameters. CTDIvol Body: 12.60 mGy, DLP Body: 732 mGy*cm. COMPARISON: None. FINDINGS: Family Resource Management Specialist View Findings, Lines and Tubes: None. Visualized Chest: Minimal bibasilar dependent atelectasis. No pleural effusion or pleural pneumothorax. The heart is normal in size. Diaphragm: Normal. Liver: Subcentimeter circumscribed low-density lesion likely represent cyst (in the absence of known malignancy). Gallbladder: No CT evidence of gallbladder pathology. Bile ducts: No biliary ductal dilation. Spleen: Normal. Accessory splenic tissue is incidentally noted. Pancreas: Normal. Adrenal glands: Normal. Kidneys and ureters: No hydronephrosis, stones, or suspicious masses. Small hypodensities that are too small to characterize are noted, requiring no dedicated follow up. Bladder: Normal. Reproductive organs: Unremarkable. Stomach, small bowel, and large bowel: Evaluation is limited due to underdistention and without enteric contrast. Small type III paraesophageal hernia. The stomach is normal in caliber. No evidence of obstruction. There is moderate colonic diverticulosis without evidence of diverticulitis. There is nodular mucosal thickening within the ascending into the transverse colon with hyperemia. Appendix: Normal (coronal image 202:34). Peritoneum and retroperitoneum: No ascites or pneumoperitoneum. No omental or mesenteric lesions. Lymph nodes: No enlarged lymph nodes. Blood vessels: Moderate atherosclerotic vascular calcification. No aortic aneurysm. No evidence of venous thrombosis. Abdominal and pelvic wall: Small fat-containing umbilical hernia. Bilateral fat- containing inguinalhernias. Bones: No acute abnormality. IMPRESSION: Ascending and transverse colitis. Normal appendix. Diverticulosis without definite evidence of diverticulitis. I have personally reviewed the images and I agree with this report. An actionable message ([place]) has been communicated via the [employer] system on 12/29/2024 9:50 PM, Message ID [id number]. WSN: [id number] Ordering Physician: Elsa Martinez Dictated By: Sujey Mendez DO Dictated Date/Time: 12/29/24 9:53 pm Reviewed By: Jaret Dewitt MD Signed By: Jaret Dewitt MD Signed Date/Time: 12/29/24 9:58 pm Transcribed By: MOHIT Transcribed Date/Time: 12/29/24 9:40 pm Admission evaluation note * Stevie EDMOND, Jasper: PERFORM, MODIFY Event Display: Admission Note Authored Date: [id number] Patient: ??JUAN M CHAPA ? Age:??84 Years?Sex:??Male?:??1940?? Chief Complaint/Reason for Consultation Patient dehydrated, vomited has had constant diarrhea for over a day. NE in the past with stent placement. denies chest pain today. 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 Klein], whitecoat HTN, ?hx of orthostatic presyncope in 07/18, STEMI s/p APARNA x2 on 12/03 presented to the ER for evaluation of generalized wea kness,diarrhea.?? As per patient,??he was having??diarrhea yesterday??without any associated??abdominal pain.?? Patient is also complaining of dry heaving??but denies any vomiting.?? Of note patient was recently hospitalized??for his STEMI??and discharged on December 05.?? Patient denies any GI bleed, any chest pain, shortness of breath, nausea, vomiting.?? Patient's last cycle of chemotherapy??on .?? Denies any radiation therapy. ? In ER, patient CT abdomen showed??ascending, transverse colitis, patient received IV ceftriaxone, Flagyl in the ER. ? Review of Systems Constitutional:??No weight loss, fever, chills, weakness Allergy/Immune: Denies any??Eczema or hives Eyes:??No visual loss, blurred vision, double vision or yellow sclera ENT:??No hearing loss, sneezing, congestion, runny nose or sore throat. Respiratory:??No shortness of breath, cough or sputum production. Cardiovascular:??No chest pain, chest pressure or chest discomfort. No palpitations or pedal edema. Gastrointestinal:??Diarrhea present, denies any abdominal pain Genitourinary:??No burning micturition. No urinary frequency or incontinence. Neurologic:??No headache, dizziness, syncope, unilateral weakness, ataxia, numbness or tingling in the extremities. No change in bowel or bladder control. Musculoskeletal:??No muscle pain, back pain, joint pain or stiffness. Hematologic/Lymphatics:??No bleeding or bruising. No painful lymph nodes. Skin:??No rash or itching. Endocrine:??No reports of sweating. No cold or heat intolerance. No polyuria or polydipsia. Psychiatric:??No depression or anxiety. Objective Measurements?? Height: 173 cm (12/30/24) Weight: 68.4 kg (12/29/24) Dry Weight: 68.4 kg (12/29/24) Body Mass Index: 22.85 kg/m2 (12/29/24) ? Vital Signs?? Temperature: 98.6 DegF (12/30/24 07:40:00) Temperature Route: Oral (12/30/24 07:40:00) Pulse Rate:??105 bpm??High (12/30/24 07:40:00) Respiratory Rate: 16 br/min (12/30/24 07:40:00) Systolic Blood Pressure: 126 mm Hg (12/30/24 07:40:00) Diastolic Blood Pressure: 74 mm Hg (12/30/24 07:40:00) Blood pressure sites: Arm, right (12/30/24 07:40:00) Mean Arterial Pressure: 91 mm Hg (12/30/24 07:40:00) Pulse Pressure: 52 mm Hg (12/30/24 07:40:00) Oxygen Saturation: 97 % (12/30/24 07:40:00) Mode of Delivery (Oxygen): Room air (12/30/24 07:40:00) Early Warning Score: 4 (12/30/24 07:45:53) ? Intake/Output? 12/29 22:51 12/30 07:00 12/29 07:00 12/28 07:00 12/27 07:00 ?? 12/30 11:49 12/30 11:49 12/30 06:59 12/29 06:59 12/28 06:59 Intake ?220 ?0 ?220 ?0 ?0 Output ?400 ?0 ?400 ?0 ?0 Net Total ? -180 ?0 ? -180 ?0 ?0 ? Physical Exam Constitutional: Alert, in no distress. Mental Status: Oriented to person, place and time. Head: Normocephalic. Eyes: Pupils are equal, round and reactive to light. Extraocular muscles intact. Ear, Nose and Throat: Oropharynx clear, mucous membranes moist. Ears and nose without masses, lesions or deformities. Trachea midline. Neck: Supple, Full range of motion. Respiratory: Clear to auscultation. No wheezing, rales or rhonchi. Cardiovascular: S1 S2 regular. No murmurs, rubs or gallops. Gastrointestinal: Abdomen soft, non-tender, non-distended. Normal bowel sounds. Neurologic: Cranial nerves II-XII grossly intact. No focal neurological deficits. Flexor plantar response. Moves all extremities spontaneously. Sensation intact bilaterally. Skin: No rashes or lesions. No petechiae or purpura.?? Musculoskeletal: No cyanosis or clubbing. No gross deformities. Normal range of motion. 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 Klein], whitecoat HTN, ?hx of orthostatic presyncope in 07/18, STEMI s/p APARNA x2 on 12/03 presented to the ER for evaluation of generalized wea kness,??diarrhea.?? Patient CT abdomen showed??ascending, transverse colitis.?? Patient with significant bands on presentation.?? Admitted for colitis ?? Colitis (K52.9):??- ?? Bandemia (D72.825):??- CT abdomen showed ascending,??transverse colitis Patient denies any abdominal pain, currently tolerating diet Received IV ceftriaxone, Flagyl in the ER Continue same antibiotics GI profile PCR, C. difficile requested, follow-up blood cultures Contact isolation ?? If patient has no further diarrhea episodes, plan for discharging tomorrow on p.o. antibiotics ? Prostate CA (C61):??-Patient with stage IV prostate cancer??with extensive bony mets Currently follows with??[facility] Last chemotherapy??7 days back Follow-up outpatient ? Coronary artery disease (I25.10):??-Recent??STEMI??on 511??with 2 stents placement Continue aspirin, Brilinta, statin, Coreg,??ARB ? Ongoing Medical Necessity:??-Colitis ?? VTE Prophylaxis:??-Aspirin Brilinta, patient is currently??ambulatory ?? Code Status:??-DNR/DNI ?Order Code Status:??Code Status Ordered ?? Diet regular diet ? Patient wants to go home If patient is stable??with no significant diarrhea, plan for discharge tomorrow morning Histories Allergies Allergies ?(Active and Proposed Allergies Only) Augmentin? (Severity: Unknown severity, Onset: Unknown) ? Past Medical History/Problem List Prostate cancer??with metastasis Whitecoat hypertension History of CAD ?? Past Surgical History CAD status post??stents ? Social History Denies any smoking, alcohol, drug abuse ? Family History Noncontributory ? Medications Home Medications Aspirin (aspirin 81 mg oral delayed release tablet)??81 Milligram By Mouth Daily Atorvastatin (atorvastatin 80 mg oral tablet)??80 Milligram By Mouth Daily at bedtime Carvedilol (Coreg 3.125 mg oral tablet)??3.125 Milligram By Mouth 2 times a day Losartan (losartan 25 mg oral tablet)??25 Milligram By Mouth Daily Omeprazole??20 Milligram By Mouth Daily PredniSONE??10 Milligram By Mouth Daily Ticagrelor (ticagrelor 90 mg oral tablet)??1 tab(s) 90 Milligram By Mouth 2 times a day ? Inpatient Medications Medications (18) Active SCHEDULED: (11) Aspirin 81 mg EC Tablet (Aspirin Tablet) ??81 mg, By Mouth, Daily Atorvastatin 80 mg Tablet (atorvastatin 80 mg oral tablet) ??80 mg, By Mouth, Daily at bedtime Carvedilol 3.125 mg Tablet (Coreg 3.125 mg oral tablet) ??3.125 mg, By Mouth, 2 times a day Ceftriaxone 1 Gm Inj (Rocephin Inj) ??1 Gm, IVPB, Every 24 hours Losartan 25 mg Tablet (losartan 25 mg oral tablet) ??25 mg, By Mouth, Daily Metronidazole 500 mg / NaCL 0.9% 100 mL (Metronidazole IVPB) ??500 mg 100 mL, IVPB, Once Metronidazole 500 mg / NaCL 0.9% 100 mL (Flagyl IVPB) ??500 mg 100 mL, IVPB, Every 8 hours NaCl 0.9% Flush 3ml (NaCL 0.9% Flush) ??3 mL, IV Push, Every 8 hours Pantoprazole 20 mg EC Tablet (pantoprazole 20 mg oral delayed release tablet) ??20 mg, By Mouth, Daily PredniSONE 20 mg Tablet (predniSONE 20 mg oral tablet) ??10 mg, By Mouth, Daily Ticagrelor 90 mg Tablet (Ticagrelor Tablet) ??90 mg 1 tablet, By Mouth, 2 times a day CONTINUOUS: (0) PRN: (7) Acetaminophen 325 mg Tablet (Acetaminophen Tablet) ??650 mg, By Mouth, Every 4 hours Melatonin 3 mg Tablet (Melatonin Tablet) ??3 mg, By Mouth, Daily at bedtime NaCl 0.9% Flush 3ml (NaCL 0.9% Flush) ??3 mL, IV Push, Every 8 hours Ondansetron 2mg/mL Inj (2mL Vial) (Zofran Inj) ??4 mg, IV Push, Once Polyethylene Glycol 17 Gm Powder (MiraLax Powder) ??17 Gm 1 pack/packet, By Mouth, Daily Senna Tablet ??8.6 mg 1 tablet, By Mouth, 2 times a day Simethicone 80 mg Chewable Tablet (Simethicone Tablet) ??80 mg, Chew, 3 times a day ? Results Recent Labs BLOOD COUNT & DIFF WBC 4.7 k/mm3 ()?? 12/29/2024 20:19 RBC 4.27 m/mm3 (Low)?? 12/29/2024 20:19 Hgb 13.3 Gm/dL (Low)?? 12/29/2024 20:19 Hct 40.0 % (Low)?? 12/29/2024 20:19 MCV 93.7 femtoliters ()?? 12/29/2024 20:19 MCH 31.1 pg ()?? 12/29/2024 20:19 MCHC 33.3 Gm/dL ()?? 12/29/2024 20:19 Platelet Count 161 k/mm3 ()?? 12/29/2024 20:19 RDW-SD 55.8 femtoliters (High)?? 12/29/2024 20:19 MPV 9.4 femtoliters ()?? 12/29/2024 20:19 Nucleated RBC (Automated) 0.0 #/100 WBC'S ()?? 12/29/2024 20:19 Abs. NRBC 0.0 k/mm3 ()?? 12/29/2024 20:19 Abs. Neut 3.4 k/mm3 ()?? 12/29/2024 20:19 Abs. Lymph 0.6 k/mm3 (Low)?? 12/29/2024 20:19 Abs. [place] 0.1 k/mm3 (Low)?? 12/29/2024 20:19 Abs. Eo 0.0 k/mm3 ()?? 12/29/2024 20:19 Abs. Baso 0.0 k/mm3 ()?? 12/29/2024 20:19 Neut % 47.8 % ()?? 12/29/2024 20:19 Lymph % 12.3 % (Low)?? 12/29/2024 20:19 [place] % 1.5 % (Low)?? 12/29/2024 20:19 Eos % 0.0 % ()?? 12/29/2024 20:19 Baso % 0.0 % ()?? 12/29/2024 20:19 Metamyelocyte % 14.6 % (High)?? 12/29/2024 20:19 Band % 23.8 % (High)?? 12/29/2024 20:19 RBC Morphology MODERATE ()?? 12/29/2024 20:19 ?? CHEM GENERAL Sodium 139 mmol/L ()?? 12/29/2024 20:19 Potassium 4.7 mmol/L ()?? 12/29/2024 20:19 Chloride 107 mmol/L ()?? 12/29/2024 20:19 Bicarbonate Level 21 mmol/L (Low)?? 12/29/2024 20:19 Anion Gap 11 mmol/L ()?? 12/29/2024 20:19 Glucose Level 105 mg/dL (High)?? 12/29/2024 20:19 BUN 21 mg/dL ()?? 12/29/2024 20:19 Creatinine-Blood 1.06 mg/dL ()?? 12/29/2024 20:19 Estimated GFR Creatinine 68 ML/MIN/1.73 M2 ()?? 12/29/2024 20:19 Calcium 8.3 mg/dL (Low)?? 12/29/2024 20:19 Magnesium 2.0 mg/dL ()?? 12/29/2024 20:19 Protein, Total 6.1 Gm/dL (Low)?? 12/29/2024 20:19 Albumin 3.8 Gm/dL ()?? 12/29/2024 20:19 AG Ratio 1.7 ()?? 12/29/2024 20:19 Alkaline Phosphatase 44 units/L ()?? 12/29/2024 20:19 Lipase, Serum/Plasma 52 units/L ()?? 12/29/2024 20:19 AST (SGOT) 28 units/L ()?? 12/29/2024 20:19 ALT (SGPT) 25 units/L ()?? 12/29/2024 20:19 Bilirubin, Total 0.8 mg/dL ()?? 12/29/2024 20:19 ?? ENDOCRINE/TUMOR MARKER TSH 1.25 uIU/mL ()?? 12/29/2024 20:19 ?? URINE OTHER Est Creatinine Clearance 48.40 mL/min ()?? 12/29/2024 21:04 ?? VIROLOGY Influenza A PCR NEGATIVE ()?? 12/29/2024 20:39 Influenza B PCR NEGATIVE ()?? 12/29/2024 20:39 RSV PCR NEGATIVE ()?? 12/29/2024 20:39 COVID-19 PCR Specimen Source NASAL ()?? 12/29/2024 20:39 COVID-19 PCR Result NEGATIVE ()?? 12/29/2024 20:39 ? CBC, CBC w/Diff?? CBC?? Differential?? WBC: 4.7 k/mm3 (20:19) Abs. Neut: 3.4 k/mm3 (20:19) RBC:??4.27 m/mm3??Low (20:19) Abs. Lymph:??0.6 k/mm3??Low (20:19) Hct:??40 %??Low (20:19) Abs. [place]:??0.1 k/mm3??Low (20:19) RDW-SD:??55.8 femtoliters??High (20:19) Abs. Eo: 0 k/mm3 (20:19) Nucleated RBC (Automated): 0 #/100 WBC'S (20:19) Abs. Baso: 0 k/mm3 (20:19) Abs. NRBC: 0 k/mm3 (20:19) Neut %: 47.8 % (20:19) ?? Lymph %:??12.3 %??Low (20:19) ?? [place] %:??1.5 %??Low (20:19) ?? Eos %: 0 % (20:19) ?? Baso %: 0 % (20:19) ?? Metamyelocyte %:??14.6 %??High (20:19) ?? Band %:??23.8 %??High (20:19) ?? RBC Morphology: MODERATE (20:19) ? BMP, Mg, and Phos Anion Gap: 11 mmol/L (20:19) Bicarbonate Level:??21 mmol/L??Low (20:19) BUN: 21 mg/dL (20:19) Calcium:??8.3 mg/dL??Low (20:19) Chloride: 107 mmol/L (20:19) Creatinine-Blood: 1.06 mg/dL (20:19) Estimated GFR Creatinine: 68 ML/MIN/1.73 M2 (20:19) Glucose Level:??105 mg/dL??High (20:19) Magnesium: 2 mg/dL (20:19) Potassium: 4.7 mmol/L (20:19) Sodium: 139 mmol/L (20:19) ?? Urinalysis Est Creatinine Clearance: 48.4 mL/min (21:04) ?? Microbiology ?? GI Profile, Stool, PCR?? Collected?? Source: Stool Body Site: ?? Collected Dt/Tm: 12/30/2024 08:45 Last Updated Dt/Tm: 12/29/2024 19:03 ?? C.diff PCR, w Rfx Toxin/Ag?? Collected?? Source: Stool Body Site: ?? Collected Dt/Tm: 12/30/2024 08:45 Last Updated Dt/Tm: 12/29/2024 19:03 ?? COVID-19, RSV, and Flu A/B, Rapid PCR?? Completed?? Source: Nasal Body Site: Nose Collected Dt/Tm: 12/29/2024 19:02 Last Updated Dt/Tm: 12/29/2024 22:06 ? EKG study * Event Display: ECG 12-Lead Authored Date: Please click on pdf link to open report * Event Display: ECG 12-Lead Authored Date: Ventricular Rate: 95 BPM Atrial Rate: 95 BPM P-R Interval: 138 ms QRS Duration: 82 ms Q-T Interval: 380 ms QTC Calculation(Bazett): 477 ms P [place]: 44 degrees R [place]: 6 degrees T [place]: 117 degrees Normal sinus rhythm Anterior infarct (cited on or before 03-Dec-2024) Abnormal ECG Confirmed by ZEYAD LYON ([id number]) on 12/30/2024 11:46:17 AM [place]: ZEYAD LYON [facility] Progress note * Va Lorenzo RN: PERFORM, SIGN, VERIFY Event Display: Progress Note Hospital Authored Date: Patient: JUAN M CHAPA Age: 84 years Sex: Male : 1940 Associated Diagnoses: None Author: Va Lorenzo RN Findings Problem Related to Alteration in Gastrointestinal : Alteration in Gastrointestinal Func/new 12/31/2024 2:33 EDT Alteration in GI status Related to C Diff, Other: colitis/c-diff Goals & Outcomes, Gastrointestinal Establish a regular pattern of elimination for pt, Nutritional intake is adequate for metabolic needs, Pt will achieve normal/improved fluid balance, Pt will have a bowel movement prior to discharge, Pt will maintain adequate GI function appropriate for pt, Ptwill maintain normal elimination patterns, Pt will experience a decrease in diarrhea Interventions, Gastrointestinal Assess & monitor effectiveness of antibiotics, Encourage PO fluids, Isolation as per policy Goals/Interventions, Gastrointestinal Yes Gastrointestinal, Problem Start 12/30/2024 3:04 Reviewed plan with, Gastrointestinal Patient Patient Progression, Gastrointestinal Pt progressing according to plan . Nursing Data Vital Signs : VITAL SIGNS SECTION 12/30/2024 20:00 EDT Temperature 98.5 DegF Temperature Route Oral Pulse Rate 85 bpm Respiratory Rate 18 br/min Systolic Blood Pressure 124 mm Hg Diastolic Blood Pressure 66 mm Hg Pulse Pressure 58 mm Hg Oxygen Saturation 94 % Mode of Delivery (Oxygen) Room air . Narrative/Incidental Assumed pt care at 1930. Pt A&Ox4 and able to communicate needs appropriately. This shift pt came back positive for cdiff. Provider notified. PO Vancomycin started. Pt reports no bowel movements this shift. Ambulating in room independently. Pt reports feeling restless this shift. PRN melatonin a dministered with no effect. RN offered to reach out to provider about getting more medication to help with restlessness and to help him sleep. Pt declined offer. Pt stating the beds are uncomfortable. This RN offered the pt a recliner but pt declined. Pt states he wants to go home and that normallyhe is very active. Pt eager to speak with day time provider to ask about discharge planning. Pt maintained on contact isolation. Plan of care ongoing, frequent rounding, and safety measures in place.See flow sheets for full assessment.. * Raya Parks: PERFORM, SIGN, VERIFY Event Display: Progress Note Hospital Authored Date: Patient: JUAN M CHAPA Age: 84 years Sex: Male : 1940 Associated Diagnoses: None Author: Raya Parks Findings Problem Related to Alteration in Gastrointestinal : Alteration in Gastrointestinal Func/new 12/30/2024 19:00 EDT Alteration in GI status Related to Other: colitis/c-diff Goals & Outcomes, Gastrointestinal Establish a regular pattern of elimination for pt, Nutritional intake is adequate for metabolic needs, Pt will achieve normal/improved fluid balance, Pt will have a bowel movement prior to discharge, Pt will maintain adequate GI function appropriate for pt, Ptwill maintain normal elimination patterns, Pt will experience a decrease in diarrhea Interventions, Gastrointestinal Assess/monitor abdomen for distention, tenderness, Assess/monitor abdominal girth & bowel function, Assess/monitor bowel pattern, bowel sounds, flatus, Assess/monitor number of bowel movements, Assess/monitor color, quantity, quality, consistency of stoo, Assess/monitor pt for nausea, vomiting, Assess/monitor effects of re-hydration, Assess/monitor intake &output, Assess if pt tolerating diet BH Goals/Interventions, Gastrointestinal Yes Gastrointestinal, Problem Start 12/30/2024 3:04 Reviewed plan with, Gastrointestinal Patient Patient Progression, Gastrointestinal Pt progressing according to plan . Evaluation patient A/O x4. takes pills whole. patient independent. on roomair. on contact precautions. bed in locked and lowest position. call barraza in reach. roudning for safety. * Va Lorenzo RN: PERFORM, SIGN, VERIFY Event Display: Progress Note Hospital Authored Date: [id number] Patient: JUAN M CHAPA Age: 84 years Sex: Male : 1940 Associated Diagnoses: None Author: Va Lorenzo RN Findings Problem Related to Alteration in Gastrointestinal : Alteration in Gastrointestinal Func/new 12/30/2024 3:01 EDT Alteration in GI status Related to Other: colitis Goals & Outcomes, Gastrointestinal Establish a regular pattern of elimination for pt, Nutritional intake is adequate for metabolic needs, Pt will achieve normal/improved fluid balance, Pt will have a bowel movement prior to discharge, Pt will maintain adequate GI function appropriate for pt, Ptwill maintain normal elimination patterns, Pt will experience a decrease in diarrhea Interventions, Gastrointestinal Assess/monitor abdominal girth & bowel function, Assess/monitorbowel pattern, bowel sounds, flatus, Assess/monitor number of bowel movements, Assess/monitor color, quantity, quality, consistency of stoo, Assess/monitor pt for nausea, vomiting, Assess if pt tolerating diet BH Goals/Interventions, Gastrointestinal Yes Gastrointestinal, Problem Start 12/30/2024 3:04 Reviewed plan with, Gastrointestinal Patient Patient Progression, Gastrointestinal Pt progressing according to plan . Nursing Data Vital Signs : VITAL SIGNS SECTION 12/30/2024 0:18 EDT Temperature 98.3 DegF Temperature Route Oral Pulse Rate 99 bpm H Respiratory Rate 20 br/min Systolic Blood Pressure 130 mm Hg Diastolic Blood Pressure 72 mm Hg Blood pressure sites Arm, left Mean Arterial Pressure 91 mm Hg Pulse Pressure 58 mm Hg Oxygen Saturation 98 % . Narrative/Incidental Assumed pt care at approx. 0100. Pt arriving to unit from the ED. Pt walking from wheelchair to thebed. Independent in the room. A&Ox4 and able to communicate needs. Daughter at bedside with patient and completed med rec with this RN. Pt LS diminished on room air. No edema present. No pain present. Pt states intermittent nausea. Awaiting BM to collect stool sample. Frequent rounding and safety measures in place. See flow sheets for full assessment.. Note * Raya Parks: PERFORM Event Display: Discharge/Transfer Note Hospital Authored Date: [id number] Nursing Discharge Note Entered On: 12/31/2024 13:44 EDT Performed On: 12/31/2024 13:43 EDT by Raya Parks Nursing Discharge Note 2 Discharge Time : 12/31/2024 13:40 EDT Discharge Level of Care at Discharge : Home/Shelter/Foster Care Patient Left Unit Via : Wheelchair Patient Accompanied Off Unit with : Responsible adult DC Instructions Provided & Signed by Pt : Yes Patient Understands D/C Instructions : Yes Patient Instructions Discharge Signed : Yes Did Pt have Specialty Bed or Wound Vac : No oJaquin JUDY, Raya - 12/31/2024 13:43 EDT * Calderon EDMOND, Sandra Vaughn: PERFORM Event Display: Discharge/Transfer Note Hospital Authored Date: [id number] Patient: ??JUAN M CHAPA ? Age:??84 Years?Sex:??Male?:??1940?? Patient Information Discharge Location: A Primary Care Physician: Imelda EDMOND, Afia Rodriguez Admit Date/Time: 12/29/2024 22:51 Discharge Disposition Discharge Disposition: Home: No Services Discharge Diagnosis Colitis due to Clostridium difficile (A04.72)Adverse effect of antineoplastic and immunosuppressivedrugs, initial encounter (T45.1X5A) Chemotherapy-induced neutropenia (D70.1) Bandemia (D72.825) Prostate CA (C61) Coronary artery disease (I25.10) _ Discharge Medications Aspirin (aspirin 81 mg oral delayed release tablet)??81 Milligram By Mouth Daily Atorvastatin (atorvastatin 80 mg oral tablet)??80 Milligram By Mouth Daily at bedtime Carvedilol (Coreg 3.125 mg oral tablet)??3.125 Milligram By Mouth 2 times a day Losartan (losartan 25 mg oral tablet)??25 Milligram By Mouth Daily Omeprazole??20 Milligram By Mouth Daily PredniSONE??10 Milligram By Mouth Daily Ticagrelor (ticagrelor 90 mg oral tablet)??1 tab(s) 90 Milligram By Mouth 2 times a day Vancomycin (vancomycin 125 mg oral capsule)??125 Milligram By Mouth Every 6 hours December 31-January 10: 125 mg four times per day; ? January 11: 125 mg three times per day; ? January 24: 125 mg two times per day; ? January 25-: 125 mg once per day; ? February 01-16: 125 mg every 2nd day (February 01, February 03, January... ? Medications Started oral vancomycin for treatment of C. difficile colitis, extended course due to chemotherapy and neutropenia Medications Discontinued none Doses Changed none Allergies Allergies ?(Active and Proposed Allergies Only) Augmentin? (Severity: Unknown severity, Onset: Unknown) ? PCP Follow-Up/Heads-Up Instructed patient to contact oncologist Dr. Ean Klein about admission and diagnosis. Also sending DC summary to her office Future Appointments 2024 10:45 AM EDT ?? 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 Klein], whitecoat HTN, ?hx of orthostatic presyncope in 07/18, STEMI s/p APARNA x2 on 12/03 presented to the ER for evaluation of generalized weakness,diarrhea.Frequent diarrhea for one day prior to presentation, no associated abdominal pain, dome dry heaves but no vomiting. Recently hospitalized for NSTEMI with 2 stents placed. No recent antibioitics. Lastchemotherapy was December 22. Not receiving radiation therapy. Initially started on iv ceftriaxone + metronidazole due to CT showing ascending and transverse colitis. Changed to oral vancomycin as sole treatment after PCR test confirmed C. difficile colitis. Patient responded well to treatment with significant decrease in frequency of stool. Bowel movements still quite soft but patient has no pain, tolerating good oral intake. WBC dropped from 4.7 on December 29 to 1.7 on December 31 with ANC of 1.3. No fevers or other symptoms noted. Plans made for discharge to home. I contacted protection mgr coverage for oncologist (Dr. Lawton, covering for Dr. Ean Klein). No additional recommendations. Also reviewed treatment plan with infectious disease due to neutropenia, ongoing chemotherapy. Treatment will be oral vancomycin with 6 week tapering dose. See assessment and plan for full details. ? In ER, patient CT abdomen showed ascending, transverse colitis, patient received IV ceftriaxone, Flagyl in the ER. ?? 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 Klein], whitecoat HTN, ?hx of orthostatic presyncope in 07/18, STEMI s/p APARNA x2 on 12/03 presented to the ER for evaluation of generalized weakness,??diarrhea.??Patient CT abdomen showed??ascending, transverse colitis.??Patient with significant bands on presentation. IV ceftriaxone and flagyl for colitis replaced with oral??vancomycin after testing confirmed C. difficile colitis.? Colitis due to Clostridium difficile infection(A04.72) Bandemia (D72.825):?? Neutropenia associated with cancer chemotherapy(D70.1) CT abdomen showed ascending,??transverse colitis Patient denies any abdominal pain, currently tolerating diet Treatment regimen reviewed with IV, 6 week tapering course due to ongoing chemotherapy and neutropenia ? Prostate CA (C61):??-Patient with stage IV prostate cancer??with extensive bony mets Currently follows with??[facility] Last chemotherapy??7 days back, continue prednisone as prescribed Follow-up outpatient, asked patient/family to call the office and will send dc summary ? Coronary artery disease (I25.10):??-Recent??STEMI??on 511??with 2 stents placement Continue aspirin, Brilinta, statin, Coreg,??ARB ? Vital Signs?? Temperature: 97.9 DegF (12/31/24 07:28:00) Temperature Route: Oral (12/31/24 07:28:00) Pulse Rate: 80 bpm (12/31/24 08:50:00) Respiratory Rate: 20 br/min (12/31/24 07:28:00) Systolic Blood Pressure: 128 mm Hg (12/31/24 08:55:00) Diastolic Blood Pressure: 76 mm Hg (12/31/24 08:55:00) Blood pressure sites: Arm, right (12/31/24 07:28:00) Mean Arterial Pressure: 93 mm Hg (12/31/24 07:28:00) Pulse Pressure: 52 mm Hg (12/31/24 07:28:00) Oxygen Saturation: 97 % (12/31/24 07:28:00) Mode of Delivery (Oxygen): Room air (12/31/24 07:28:00) Early Warning Score:??11??Critical (12/31/24 09:00:00) ? . Physical Exam General: alert, fully oriented, eager to go home, no distress HEENT: moist mucus membranes Lungs: clear to auscultation, respirations unlabored Heart: regular rate, no M/R/G Abdomen: no tenderness or distention, normal bowel sounds Extremities: no edema Neuro: nonfocal Consultants none Pending Results No Pending Results Patient Education Titles WebMD Ignite Patient Education - Neutropenia?? Web[employer] Ignite Patient Education - Clostridium Difficile (C. Diff) Infection?? Patient Instructions You were hospitalized with acute diarrhea. CT scan showed colitis and stool test confirmed Clostridium difficile infection as the cause. You were started on oral vancomycin to treat this infection with good results. While you were in the hospital, your white blood count dropped to 1.7 total with 1.3 neutrophils onJun 8. This is from your recent chemotherapy. Because of the low white blood cell count and chemotherapy, you will need a 6 week course of vancomycin to treat this infection. The tapering dose of vancomycin will be as follows: ? December 31-January 10: 125 mg four times per day ? January 11: 125 mg three times per day ? January 24: 125 mg two times per day ? January 25-: 125 mg once per day ? February 01-: 125 mg every 2nd day (February 01, February 03, February 05, February 07) ? February 08-: 125 mg every 3rd day (February 10, February 13, February 16) I notified the covering doctor for your oncologist Dr. Ean Klein??about your admission, diagnosis and treatment plan. This doctor does not work in the same office with her. Please call Dr. Klein's office on Wednesday to see if they should see you sooner due to this infection.? Please contact your doctors (primary and or oncology) or return to the hospital?if significant??diarrhea returns or you develop abdominal pain, nausea, vomiting or fever.? Home Health Face to Face ^HomeHealthFTF Results Discharge Labs BACTERIOLOGY Blood Culture Results Preliminary report ()?? 12/29/2024 22:36 Blood Culture Specimen Source BLOOD ()?? 12/29/2024 22:36 Blood Culture Isolate 1 Comment ()?? 12/29/2024 22:36 Blood Cult 2 Results Preliminary report ()?? 12/29/2024 22:36 Blood Culture 2 Specimen Source BLOOD ()?? 12/29/2024 22:36 Blood Culture 2 Isolate 1 Comment ()?? 12/29/2024 22:36 ?? BLOOD COUNT & DIFF WBC 1.7 k/mm3 (Critical)?? 12/31/2024 04:59 RBC 3.84 m/mm3 (Low)?? 12/31/2024 04:59 Hgb 11.7 Gm/dL (Low)?? 12/31/2024 04:59 Hct 36.4 % (Low)?? 12/31/2024 04:59 MCV 94.8 femtoliters (High)?? 12/31/2024 04:59 MCH 30.5 pg ()?? 12/31/2024 04:59 MCHC 32.1 Gm/dL (Low)?? 12/31/2024 04:59 Platelet Count 147 k/mm3 (Low)?? 12/31/2024 04:59 RDW-SD 55.9 femtoliters (High)?? 12/31/2024 04:59 MPV 9.7 femtoliters ()?? 12/31/2024 04:59 Nucleated RBC (Automated) 0.0 #/100 WBC'S ()?? 12/31/2024 04:59 Abs. NRBC 0.0 k/mm3 ()?? 12/31/2024 04:59 Abs. Neut 1.3 k/mm3 ()?? 12/31/2024 04:59 Abs. Lymph 0.3 k/mm3 (Low)?? 12/31/2024 04:59 Abs. [place] 0.1 k/mm3 (Low)?? 12/31/2024 04:59 Abs. Eo 0.0 k/mm3 ()?? 12/31/2024 04:59 Abs. Baso 0.0 k/mm3 ()?? 12/31/2024 04:59 Neut % 61.9 % ()?? 12/31/2024 04:59 Lymph % 16.2 % ()?? 12/31/2024 04:59 [place] % 2.9 % (Low)?? 12/31/2024 04:59 Eos % 0.0 % ()?? 12/31/2024 04:59 Baso % 0.0 % ()?? 12/31/2024 04:59 Myelocytes % 1.5 % ()?? 12/31/2024 04:59 Metamyelocyte % 1.5 % ()?? 12/31/2024 04:59 Band % 11.8 % (High)?? 12/31/2024 04:59 Atypical Lymph % 2.2 % ()?? 12/31/2024 04:59 Nucleated RBC 2 /100 WBC ()?? 12/31/2024 04:59 RBC Morphology MODERATE ()?? 12/29/2024 20:19 Platelet Estimate DECREASED ()?? 12/31/2024 04:59 ? CHEM GENERAL Sodium 138 mmol/L ()?? 12/31/2024 04:59 Potassium 4.2 mmol/L ()?? 12/31/2024 04:59 Chloride 106 mmol/L ()?? 12/31/2024 04:59 Bicarbonate Level 20 mmol/L (Low)?? 12/31/2024 04:59 Anion Gap 12 mmol/L ()?? 12/31/2024 04:59 Glucose Level 105 mg/dL (High)?? 12/29/2024 20:19 BUN 12 mg/dL ()?? 12/31/2024 04:59 Creatinine-Blood 0.97 mg/dL ()?? 12/31/2024 04:59 Estimated GFR Creatinine 76 ML/MIN/1.73 M2 ()?? 12/31/2024 04:59 Calcium 8.3 mg/dL (Low)?? 12/29/2024 20:19 Magnesium 2.0 mg/dL ()?? 12/31/2024 04:59 Protein, Total 6.1 Gm/dL (Low)?? 12/29/2024 20:19 Albumin 3.8 Gm/dL ()?? 12/29/2024 20:19 AG Ratio 1.7 ()?? 12/29/2024 20:19 Alkaline Phosphatase 44 units/L ()?? 12/29/2024 20:19 Lipase, Serum/Plasma 52 units/L ()?? 12/29/2024 20:19 AST (SGOT) 28 units/L ()?? 12/29/2024 20:19 ALT (SGPT) 25 units/L ()?? 12/29/2024 20:19 Bilirubin, Total 0.8 mg/dL ()?? 12/29/2024 20:19 ? ENDOCRINE/TUMOR MARKER TSH 1.25 uIU/mL ()?? 12/29/2024 20:19 ? SEROLOGY INF DISEASE C.difficile Toxin INDETERMINATE (Abnormal)?? 12/30/2024 17:45 C. Difficile Toxin by PCR POSITIVE (Abnormal)?? 12/30/2024 17:45 ?? STOOL STUDIES GI PCR, Campylobacter NEGATIVE ()?? 12/30/2024 17:45 GI PCR, Plesiomonas shigelloides NEGATIVE ()?? 12/30/2024 17:45 GI PCR, Salmonella NEGATIVE ()?? 12/30/2024 17:45 GI PCR, Vibrio NEGATIVE ()?? 12/30/2024 17:45 GI PCR, Vibrio cholerae NEGATIVE ()?? 12/30/2024 17:45 GI PCR, Yersinia enterocolitica NEGATIVE ()?? 12/30/2024 17:45 GI PCR, Enteroaggregative E coli NEGATIVE ()?? 12/30/2024 17:45 GI PCR, Enteropathogenic E coli NEGATIVE ()?? 12/30/2024 17:45 GI PCR, Enterotoxigenic E coli NEGATIVE ()?? 12/30/2024 17:45 GI PCR, Utjwe-pdjom-avhaxhkqu E coli NEGATIVE ()?? 12/30/2024 17:45 GI PCR, Shigella/Enteroinvasive E coli NEGATIVE ()?? 12/30/2024 17:45 GI PCR, Cryptosporidium NEGATIVE ()?? 12/30/2024 17:45 GI PCR, Cyclospora cayetanensis NEGATIVE ()?? 12/30/2024 17:45 GI PCR, Entamoeba histolytica NEGATIVE ()?? 12/30/2024 17:45 GI PCR, Giardia lamblia NEGATIVE ()?? 12/30/2024 17:45 GI PCR, Adenovirus F 40/41 NEGATIVE ()?? 12/30/2024 17:45 GI PCR, Astrovirus NEGATIVE ()?? 12/30/2024 17:45 GI PCR, Norovirus GI/GII NEGATIVE ()?? 12/30/2024 17:45 GI PCR, Rotavirus A NEGATIVE ()?? 12/30/2024 17:45 GI PCR, Sapovirus NEGATIVE ()?? 12/30/2024 17:45 ?? URINE OTHER Est Creatinine Clearance 52.89 mL/min ()?? 12/31/2024 05:59 ? VIROLOGY Influenza A PCR NEGATIVE ()?? 12/29/2024 20:39 Influenza B PCR NEGATIVE ()?? 12/29/2024 20:39 RSV PCR NEGATIVE ()?? 12/29/2024 20:39 COVID-19 PCR Specimen Source NASAL ()?? 12/29/2024 20:39 COVID-19 PCR Result NEGATIVE ()?? 12/29/2024 20:39 ? Image ?CT Abd/Pelvis W/ IV Contrast Only??12/29/2024 21:16 by Colon , Doretha ? RESULT: CT Abd/Pelvis W/ IV Contrast Only ? CT Abd/Pelvis W/ IV Contrast Only Hx of Present Illness: Weakness, N V D; Reason: Other:; RLQ abdominal pain; Clinical Question(s): Appendicitis TECHNIQUE: Spiral CT through the abdomen and pelvis with IV contrast formatted in 3 planes. 100 cc of Isovue 300 was administered intravenously. This study was performed without oral contrast. Weight-based protocol using automatic tube modulation was used to optimize exposure parameters. CTDIvol Body: 12.60 mGy, DLP Body: 732 mGy*cm. COMPARISON: None. FINDINGS: Family Resource Management Specialist View Findings, Lines and Tubes: None. Visualized Chest: Minimal bibasilar dependent atelectasis. No pleural effusion or pleural pneumothorax. The heart is normal in size. Diaphragm: Normal. Liver: Subcentimeter circumscribed low-density lesion likely represent cyst (in the absence ofknown malignancy). Gallbladder: No CT evidence of gallbladder pathology. Bile ducts: No biliary ductal dilation. Spleen: Normal. Accessory splenic tissue is incidentally noted. Pancreas: Normal. Adren al glands: Normal. Kidneys and ureters: No hydronephrosis, stones, or suspicious masses. Small hypodensities that are too small to characterize are noted, requiring no dedicated follow up. Bladder: Normal. Reproductive organs: Unremarkable. Stomach, small bowel, and large bowel: Evaluation is limited due to underdistention and without enteric contrast. Small type III paraesophageal hernia. The stomach is normal in caliber. No evidence of obstruction. There is moderate colonic diverticulosis without evidence of diverticulitis. There is nodular mucosal thickening within the ascending into the transverse colon with hyperemia. Appendix: Normal (coronal image 202:34). Peritoneum and retroperitone um: No ascites or pneumoperitoneum. No omental or mesenteric lesions. Lymph nodes: No enlarged lymph nodes. Blood vessels: Moderate atherosclerotic vascular calcification. No aortic aneurysm. No evidence of venous thrombosis. Abdominal and pelvic wall: Small fat-containing umbilical hernia. Bilateral fat-containing inguinal hernias. Bones: No acute abnormality. IMPRESSION: Ascending and transverse colitis. Normal appendix. Diverticulosis without definite evidence of diverticulitis. I have personally reviewed the images and I agree with this report. An actionable message ([place]) has been communicated via the [employer] system on 12/29/2024 9:50 PM, Message ID [id number]. WSN: [id number] Ordering Physician: Elsa Martinez ?? Signature Line ? Dictated By: Sujey Mendez DO Dictated Date/Time: 12/29/24 9:53 pm Reviewed By: Mateo Dewitt MD Signed By: Jaret Dewitt MD Signed Date/Time: 12/29/24 9:58 pm Transcribed By: MOHIT Transcribed Date/Time: 12/29/24 9:40 pm ?? CT Abd/Pelvis W/ IV Contrast Only ? This document has an image. Click 'View Document' to view. ?? 50_ minutes spent on discharge * Raya Parks: PERFORM Event Display: Patient Education/Instruction Authored Date: [id number] Inpatient Adult Discharge Instructions. [place] [id number] Name: JUAN M CHAPA : 1940?? Visit: 12/29/2024 22:51?? Current Date: 12/31/2024 13:29 ?? Account: [id number]?? Inpatient Adult Discharge Instructions We would like to thank you for allowing us to assist you with your healthcare needs. The following includes patient education materials and information regarding your injury/illness. Our entire staffstrives to provide an excellent experience for our patients and their families. PLEASE ENSURE YOU FOLLOW-UP PER THE INSTRUCTIONS BELOW! ?? YOUR OPINION IS IMPORTANT TO US! Please complete the survey you may receive by mail or email. Your feedback will be used to make improvements to the healthcare experiences of our patients and their families. Surveys are administered by [employer] ?? If further treatment with your primary care physician or another doctor is recommended, it is important for you to keep the appointment. Call your primary care physician or return to the Emergency Department immediately if your condition worsens, fails to improve, or new symptoms develop. If you need to find a doctor, you can call [facility] Link for a referral at [phone] or toll free at [phone]) or log in to [email or web address].. ?? [facility], in keeping with [facility] guidance, no longer requires face masks for staff, patientsor visitors in most situations. Similiar to time spent indoors at other locations, there is the chance that you were exposed to repiratory viruses during your time with us (such as flu or COVID-19). If you develop symptoms concerning for a viral respiratory infection, please seek testing (and treatment if indicated) from your medical provider or home test kit. ?? You can view and manage your care through the patient portal or by using a health care [facility] of your choosing. [employer] is a website that allows you to securely view your medical information including your hospital discharge summary, office visit summaries, medications and follow-up visits. You can also request appointments, renew medications, and request access to your medical information using a health care ashley of your choosing, or just ask a question. You are entitled to know the individuals who participated in your treatment. This information is available within your medical record and will be provided upon your request. You can enroll at [email or web address] or register d uring your next office visit. You have been discharged from [facility], Patient Care Unit: D6A??. If you have any questions regarding these instructions, including results of studies pending, afteryou leave, please call us and we will be happy to assist you 15/02. [facility] Your Care Team Attending Physician Sandra Mancera MD?? Consulting Providers Sandra Mancera MD?? Discharging Providers Sandra Mancera MD Reason for Your Visit Patient dehydrated, vomited has had constant diarrhea for over a day. NE in the past with stent placement. denies chest pain today. ambulatory for EMS?? Your Diagnosis Adverse effect of antineoplastic and immunosuppressive drugs, initial encounter Chemotherapy-induced neutropenia Colitis due to Clostridium difficile Coronary artery disease Tests Performed Below is a partial list of the tests performed during your hospitalization. You may have had other tests and procedures not included in this list. Please discuss all test results with your provider. Blood Culture Blood Culture #2 Blood Culture 2 Results Blood Culture Result BUN C. diff PCR, w Rfx Toxin/Ag C. DIFFICILE TOXIN CBC w/ Differential Comprehensive Metabolic Panel COVID-19, RSV, and Flu A/B, Rapid PCR Creatinine Electrolytes GI Profile, Stool, PCR Lipase Magnesium Level TSH with T4 Reflex (Adults Only) CT Abd/Pelvis W/ IV Contrast Only BUN?? Blood Culture?? Blood Culture #2?? Blood Culture 2 Results?? Blood Culture Result?? C. difficile Rapid Toxin Assay (C. DIFFICILE TOXIN)?? C.diff PCR, w Rfx Toxin/Ag (C. diff PCR, w Rfx Toxin/Ag)?? CBC w/ Differential?? COVID-19, RSV, and Flu A/B, Rapid PCR?? CT Abd/Pelvis W/ IV Contrast Only?? Comprehensive Metabolic Panel?? Creatinine?? Electrolytes?? GI Profile, Stool, PCR?? Lipase?? Magnesium Level?? TSH with T4 Reflex (Adults Only)?? Primary Care Provider Afia Segura MD? Advance Directive Health Care Proxy on File No Patient refuses to discuss Discharge Vitals Temperature: 97.9 DegF Height: 173 cm Pulse Rate: 80 bpm Weight: 68.4 kg Respiratory Rate: 20 br/min Body Mass Index: 22.85 kg/m2 Systolic Blood Pressure: 128 mm Hg Body surface area: 1.81 Diastolic Blood Pressure: 76 mm Hg ?? Oxygen Saturation: 97 % ?? Studies Pending All studies ordered during this hospital stay have been completed unless listed below. Please discuss all pending results with your provider listed above in these instructions. ?? No incomplete studies found?? What to do next Instructions From Your Doctor You were hospitalized with acute diarrhea. CT scan showed colitis and stool test confirmed Clostridium difficile infection as the cause. You were started on oral vancomycin to treat this infection with good results. While you were in the hospital, your white blood count dropped to 1.7 total with 1.3 neutrophils onJune 8. This is from your recent chemotherapy. Because of the low white blood cell count and chemotherapy, you will need a 6 week course of vancomycin to treat this infection. The tapering dose of vancomycin will be as follows: ? December 31-January 10: 125 mg four times per day ? January 11: 125 mg three times per day ? January 24: 125 mg two times per day ? January 25: 125 mg once per day ? February 01-: 125 mg every 2nd day (February 01, February 03, February 05, February 07) ? February 08: 125 mg every 3rd day (February 10, February 13, February 16) I notified the covering doctor for your oncologist Dr. Ean Klein??about your admission, diagnosis and treatment plan. This doctor does not work in the same office with her. Please call Dr. Klein's office on Wednesday to see if they should see you sooner due to this infection.? Please contact your doctors (primary and or oncology) or return to the hospital?if significant??diarrhea returns or you develop abdominal pain, nausea, vomiting or fever.? Orders? 12/31/24 12:59:00 EDT?? Scheduled Follow-Up Appointments Dec. 2024 10:45 AM EDT ?? With: Mak Barba MD [facility] [facility] [address] [place] [id number]- Status: Pending Discharge Medications JUAN M CHAPA :1940 Visit Date:12/29/2024 Medications: Please continue your medications until treatment is completed or stopped by your provider. Medications not listed below should be discontinued. Discuss any questions related to medications with your provider. What How Much When Instructions Next Dose New Vancomycin (vancomycin 125 mg oral capsule) 125 Milligram Oral Every 6 hours December 31January 10: 125 mg four times per day; ? January 11: 125 mg three times per day; ? January 24: 125 mg two times per day; ? January 25: 125 mg once per day;? February 01-: 125 mg every 2nd day (February 01, February 03, February 05, February 07); ? February 08-: 125 mg every 3rd day (February 10, February 13, February 16) ?? Pickup at [facility] 3 12/31 at 9pm Unchanged Aspirin (aspirin 81 mg oral delayed release tablet) 81 Milligram Oral Daily 01/01 at 9am Unchanged Atorvastatin (atorvastatin 80 mg oral tablet) 80 Milligram Oral Daily at Bedtime 12/31 at 9pm Unchanged Carvedilol (Coreg 3.125 mg oral tablet) 3.125 Milligram Oral Twice a day 12/30 at 9pm Unchanged Losartan (losartan 25 mg oral tablet) 25 Milligram Oral Daily 01/01 at 9am Unchanged Omeprazole 20 Milligram Oral Daily 01/01 at 9am Unchanged PredniSONE 10 Milligram Oral Daily 01/01 at 9am Unchanged Ticagrelor (ticagrelor 90 mg oral tablet) 1 tab(s) Oral Twice a day 12/31 at 9pm Pharmacy Information [facility] 3: [address], [place] [id number] [phone] Prescription Given During Visit Vancomycin (vancomycin 125 mg oral capsule) - 125 mg, By Mouth, Every 6 hours, # 90 capsule, 0 Refills, December 31-January 10: 125 mg four times per day; ? January 11: 125 mg three times per day; ? January 24: 125 mg two times per day; ? January 25-: 125 mg once per day; ? February 01-: 125 mg every 2nd day (February 01, February 03, January..., [facility] 3 [address] [place] [id number]?? Laboratory Results Below is a partial list of the most recent Laboratory test results done prior to this discharge. You may have had other tests and procedures not included in this list. Please discuss all test resultswith your provider. Est Creatinine Clearance - 52.89 mL/min (12/31/2024) Blood Culture (12/29/2024) ???Blood Culture Results - Preliminary report???Blood Culture Specimen Source - BLOOD Blood Culture #2 (12/29/2024) ???Blood Cult 2 Results - Preliminary report???Blood Culture 2 Specimen Source - BLOOD Blood Culture 2 Results (12/29/2024) ???Blood Culture 2 Isolate 1 - Comment Blood Culture Result (12/29/2024) ???Blood Culture Isolate 1 - Comment BUN (12/31/2024) ???BUN - 12 mg/dL C. diff PCR, w Rfx Toxin/Ag (12/30/2024) ???C. Difficile Toxin by PCR - POSITIVE C. DIFFICILE TOXIN (12/30/2024) ???C.difficile Toxin - INDETERMINATE CBC w/ Differential (12/31/2024) ???WBC - 1.7 k/mm3???RBC - 3.84 m/mm3???Hgb - 11.7 Gm/dL???Hct - 36.4 %???MCV - 94.8 femtoliters???MCH - 30.5 pg???MCHC - 32.1 Gm/dL???Platelet Count - 147 k/mm3???RDW-SD - 55.9 femtoliters???MPV - 9.7 femtoliters???Nucleated RBC (Automated) - 0.0 #/100 WBC'S???Abs. NRBC - 0.0 k/mm3???Abs. Neut - 1.3 k/mm3???Abs. Lymph - 0.3 k/mm3???Abs. [place] - 0.1 k/mm3???Abs. Eo - 0.0 k/mm3???Abs. Baso - 0.0 k/mm3???Neut % - 61.9 %???Lymph % - 16.2 %???[place] % - 2.9 %???Eos % - 0.0 %???Baso % - 0.0 %???Myelocytes % - 1.5 %???Metamyelocyte % - 1.5 %???Band % - 11.8 %???Atypical Lymph % - 2.2 %???Nucleated RBC- 2 /100 WBC???Platelet Estimate - DECREASED Comprehensive Metabolic Panel (12/29/2024) ???Sodium - 139 mmol/L???Potassium - 4.7 mmol/L???Chloride - 107 mmol/L???Bicarbonate Level - 21 mmol/L???Anion Gap - 11 mmol/L???Glucose Level - 105 mg/dL???BUN - 21 mg/dL???Creatinine-Blood - 1.06 mg/dL???Estimated GFR Creatinine - 68 ML/MIN/1.73 M2???Calcium - 8.3 mg/dL???Protein, Total - 6.1 Gm/ dL???Albumin - 3.8 Gm/dL???AG Ratio - 1.7???Alkaline Phosphatase - 44 units/L???AST (SGOT) - 28 units/L???ALT (SGPT) - 25 units/L???Bilirubin, Total - 0.8 mg/dL COVID-19, RSV, and Flu A/B, Rapid PCR (12/29/2024) ???Influenza A PCR - NEGATIVE???Influenza B PCR - NEGATIVE???RSV PCR - NEGATIVE???COVID-19 PCR Specimen Source - NASAL???COVID-19 PCR Result - NEGATIVE Creatinine (12/31/2024) ???Creatinine-Blood - 0.97 mg/dL???Estimated GFR Creatinine - 76 ML/MIN/1.73 M2 Electrolytes (12/31/2024) ???Sodium - 138 mmol/L???Potassium - 4.2 mmol/L???Chloride - 106 mmol/L???Bicarbonate Level - 20 mmol/L???Anion Gap - 12 mmol/L GI Profile, Stool, PCR (12/30/2024) ???GI PCR, Campylobacter - NEGATIVE???GI PCR, Plesiomonas shigelloides - NEGATIVE???GI PCR, Salmonella - NEGATIVE???GI PCR, Vibrio - NEGATIVE???GI PCR, Vibrio cholerae - NEGATIVE???GI PCR, Yersinia enterocolitica - NEGATIVE???GI PCR, Enteroaggregative E coli - NEGATIVE???GI PCR, Enteropathogenic E coli - NEGATIVE???GI PCR, Enterotoxigenic E coli - NEGATIVE???GI PCR, Xogeq-szaoc-oizbcdciz E coli -NEGATIVE???GI PCR, Shigella/Enteroinvasive E coli - NEGATIVE???GI PCR, Cryptosporidium - NEGATIVE???GI PCR, Cyclospora cayetanensis - NEGATIVE???GI PCR, Entamoeba histolytica - NEGATIVE???GI PCR, Giardia lamblia - NEGATIVE???GI PCR, Adenovirus F 40/41 - NEGATIVE???GI PCR, Astrovirus - NEGATIVE???GIPCR, Norovirus GI/GII - NEGATIVE???GI PCR, Rotavirus A - NEGATIVE???GI PCR, Sapovirus - NEGATIVE Lipase (12/29/2024) ???Lipase, Serum/Plasma - 52 units/L Magnesium Level (12/31/2024) ???Magnesium - 2.0 mg/dL TSH with T4 Reflex (Adults Only) (12/29/2024) ???TSH - 1.25 uIU/mL You will be contacted within 72 hours with your results. Allergies (NKA means No Known Allergies) Augmentin Problems No qualifying data available Education Materials Below is the list of Educational Leaflet Providered with your Discharge Instructions. WebMD Ignite Patient Education - Neutropenia?? WebMD Ignite Patient Education - Clostridium Difficile (C. Diff) Infection?? Valuables and Belongings I fully understand and agree that [facility] accepts no responsibility for all my personal property including clothing, toilet articles, radios, jewelry, dentures, hearing aids, rings, money, or any other property that is in my possession or is brought to me after admission. I understand certain valuables may be placed in a hospital safe for a short period of time. I understand that the hospital is not liable for loss or damage due to accident, fire, or other natural occurrence while said property is in the safe. I accept full responsibility for any personal property that I keep with me, and will not hold the hospital responsible in case of loss or disappearance. I acknowledge that i have been encouraged to send valuables and belongings home. ?? Review of Valuable and Belonging List: With patient, With family Date for Pt to Sign Valuables/Belongings: 12/29/24 23:10:00 ?? Other Discharge Information ? Pulmonary Rehab Status?? Pulmonary Rehab Discharge Status?? Respiratory Rate: 20 br/min ? Common Emergency Awareness Tips IS IT A STROKE? Act FAST and Check for these signs: FACE Does the face look uneven? ARM Does one arm drift down? SPEECH Does their speech sound strange? TIME Call at any sign of stroke ?? Heart Attack Signs Chest discomfort: Most heart attacks involve discomfort in the center of the chest and lasts more than a few minutes, or goes away and comes back. It can feel like uncomfortable pressure, squeezing, fullness or pain. Discomfort in upper body: Symptoms can include pain or discomfort in one or both arms, back, neck, jaw or stomach. Shortness of breath: With or without discomfort. Other signs: Breaking out in a cold sweat, nausea, or lightheaded. Remember, MINUTES DO MATTER. If you experience any of these heart attack warning signs, call to get immediate medical attention! ?? Smoking can increase your chances of developing chronic health problems and can cause harmful effects to other family members in your house. If you smoke, you are strongly encouraged to quit. Please call [facility] June [employer] Link at [phone] or [phone] ([phone]) or log in to [email or web address] for referrals to smoking cessation programs. ?? 309 Suicide & Crisis Lifeline is available 15/02 if you or someone you know needs to find a reason to keep living. By calling 663 you'll be connected to a skilled, trained counselor at a crisis center in your area. INPATIENT DISCHARGE INSTRUCTIONS SIGNATURE PAGE JUAN M CHAPA Location:[facility] Registration Date and Time:12/29/2024 22:51 EDT Primary Care Physician: Imelda EDMOND, Afia Rodriguez, Attending Physician: Calderon EDMOND, Sandra Vaughn, I JUAN M CHAPA, have received the above patient education materials/instructions and have verbalizedunderstanding. If ambulance or transport services are being used I further acknowledge being given a choice of service. ?? If you need to contact me, please call me at this number: . Patient/Color Blender Name: Patient/Color Blender Signature: Relationship to Patient: Witness Name/Signature: Date: * Sandra Mancera MD: PERFORM Event Display: Patient Education Leaflets Authored Date: [id number] Multiple Documents ?? 75136 Neutropenia White blood cells (WBCs) help protect the body from infection. Neutrophils are a type of white blood cell. Their main job is to help the body fight bacterial and fungal infections. Neutropenia occurswhen there are fewer neutrophils in the blood than normal. It can range from mild to severe. This depends on the number of neutrophils in the blood. Severe neutropenia puts a person at higher risk for having more infections. Bacterial and fungal infections are most common. Your healthcare provider can tell you more about your condition and whether it needs to be treated. What causes neutropenia? There are??two main types of neutropenia: congenital and acquired. Each type has many causes: ??? Congenital neutropenia. These are the types that are present at . They are caused by certain rare genetic conditions, such as Kostmann syndrome. Most often the neutropenia is mild and normal for certain ethnic groups, including people of , , or Christianity descent. ??? Acquired neutropenia. This type is not present at . Causes include: o Certain medicines, such as antibiotics and chemotherapy medicines o Certain autoimmune conditions o Certain viral, bacterial, or parasitic infections o Too little folate or vitamin B-12 in the diet o Underlying bone marrow problem, such as leukemia or myelodysplastic syndrome (MDS) o Other causes ?? How is neutropenia diagnosed? Your healthcare provider may check for neutropenia if you have frequent infections. Your provider may also check for neutropenia if you???re having certain treatments, such as chemotherapy, which is known to cause a lower neutrophil count. Neutropenia is often found when a routine complete blood count is drawn. Tests will be done to confirm the problem. These may include: ??? A complete blood count (CBC). This test measures the amounts of the different types of cells in your blood. This includes the WBCs. The WBC count can be broken down further to find the number of neutrophils and immature neutrophils (bands) in your blood. This is called an absolute neutrophil count (ANC). ??? A blood smear. This test checks for the different types of blood cells in your blood and how they appear. A sample of your blood is spread on a glass slide and viewed under a microscope. A stain is used so the blood cells can be seen. ??? A bone marrow aspiration and biopsy. This test checks for problems with how your bone marrow makes blood cells. A needle is used to remove a sample of the bone marrow in your hip bone. The sample is then sent to a lab to be tested for problems. ?? How is neutropenia treated? If there is a clear cause of neutropenia, it is addressed. For instance, if a medicine is the cause, it may be stopped or changed. ??? Often no treatment is needed formild cases, such as those linked to ethnicity. ??? For moderate to severe cases, treatment is likely needed. This may include: o G-CSF (granulocyte-colony stimulating factor). This is a special typeof protein. It helps promote the growth and activity of neutrophils. G-CSF is given by injection. oBone marrow transplant.??This treatment replaces diseased bone marrow cells with healthy cells froma matched donor. This treatment is done only in specific severe cases. ?? What is the long-term outcome of neutropenia? The outcome of neutropenia varies for each person. For some people, neutropenia may resolve after afew weeks or months. For other people, it may be long- lasting. In these cases, ongoing care and treatment may be needed. Your healthcare provider will talk to you more about what to expect from your c ondition. ?? When to call your healthcare provider Call your healthcare provider right away if you have any of the following: ??? Cold sweat or chills??? Chest pain or trouble breathing ??? Sore throat ??? Cough ??? Extreme tiredness or fatigue ??? Nausea and vomiting ??? Redness, warmth, or drainage from any open cuts or wounds ??? Pain or burning with urination; frequent urination ??? Pain, burning, or bleeding in the rectum ??? Severe constipation or diarrhea ??? Bloody stool or urine? Call 911 Fever of 100.4??F (38??C) or higher. Call 911 or go to the emergency room. This is especially important if you have severe neutropenia. This puts you at higher risk for a life-threatening infection. ?? How can I prevent infections? With neutropenia, take extra care to protect yourself from infection. Talk with your healthcare provider about what steps you need to take. What you do depends on how severe your neutropenia is. The following precautions help prevent infections: ??? Wash your hands often, especially before eating and after using the bathroom. Use clean, running water and soap. Scrub for 20 seconds, or for as longas it takes to sing the Happy Birthday song from beginning to end, twice. Or use a hand gel that contains at least 60% alcohol. ??? Stay away from crowds and close contact with others who may be ill.??? Cook meat and eggs all the way through to kill any germs. ??? Carefully wash raw fruits and vegetables. Depending on how severe your neutropenia is, you may need to drop fresh fruits and vegetables from your diet. ??? Clean items you use often with disinfectant wipes. This includes phones and computer keyboards. ??? Don't touch your eyes, nose, and mouth, especially if your hands are not clean. ??? Practice good oral hygiene. Use a soft toothbrush. Also, brush and floss your teeth gently. ??? Always wipe from front to back after a bowel movement. ??? Stay up to date on vaccines advised byyour healthcare provider. ??? Bathe every day and use an unscented lotion to prevent cracked skin. ??? Keep cuts and scrapes clean and covered until they heal. ??? Don't share items such as drinks, eating utensils, towels, toothbrushes, razors, clothing, and sports equipment. ??? Store and handle foods safely to prevent food-borne illness. ??? Protect yourself against pet waste (urine and stool) by using vinyl gloves when cleaning. ??? Always use gloves when gardening. You may have to avoid having live plants in your home. ??? Ask your healthcare provider if you need to take antibiotics before and after having any dental or medical procedures. ??? Ask your healthcare provider if you need towear a special mask near construction sites or farm areas. ?? Last Reviewed Date: 2022 00:00:00 ?? [employer]. All rights reserved. This information is not intended as a substitute for professional medical care. Always follow your healthcare professional's instructions. ?? * Calderon EDMOND, Sandra Vaughn: PERFORM Event Display: Patient Education Leaflets Authored Date: [id number] Multiple Documents ?? [id number] Clostridium Difficile (C. Diff) Infection C. diff (Clostridium difficile) bacteria can be very??harmful. They affect the intestinal tract. They can cause symptoms ranging from mild diarrhea to severe inflammation of the??large intestine (colon). C. diff infection may also be called Clostridioides difficile infection. It's most common during the days and weeks after treatment with antibiotics. Anyone can get infected. But the risk is higher for people in hospitals and for people living in nursing homes or long- term care facilities.??This is because antibiotic use is common there. Germs also spread easily in these places. What causes??C. diff infection? The stomach and??intestines??have hundreds of kinds of bacteria. Many of these bacteria actually help keep harmful bacteria, such as??C. diff,??from causing problems. Small amounts of C. diff are normal in the intestine and don???t cause problems. When you take an antibiotic, the normal balance of good and bad bacteria??may be affected. There may be too few of the good bacteria. This may allow the harmful bacteria, such as??C diff, to grow. In hospitals and nursing homes,??C. diff??may be spread from an infected person to others. This can happen when staff or visitors touch infected people or??objects (such as bed rails, stethoscopes, or bedpans) and then touch other people or surfaces. ?? What are the symptoms of C. diff infection? People with a mild C. diff infection often have these symptoms: ??? Watery diarrhea (3 or more times a day for several days) ??? Stomach pain, soreness, and cramping People with a severe C. diff infection may have symptoms that include: ??? Severe stomach pain or soreness ??? Frequent watery diarrhea (up to 15 times a day) ??? Belly swelling ??? Upset stomach (nausea) and vomiting ??? Loss of appetite ??? Blood or pus in their stool??? Fever Sometimes people carry the C. diff germs but do not get sick. This is called colonization. Colonization is more common than C. diff infection and does not need treatment. People who are colonized have no symptoms. But they can still pass the infection to others. ?? How is??C. diff infection diagnosed? To confirm the infection, a stool sample is taken. It's tested for the bacteria or the??toxins madeby the bacteria. ?? How is??C. diff infection treated? In many cases, you will be given an antibiotic or other medicine or therapy directed at the??C. diff??infection. Your healthcare provider might advise that you stop taking or change the antibiotics??you've been prescribed. Talk with your provider before stopping or starting any medicines. ??? Fluids are often given by IV (intravenously) through a vein. This helps replace fluids lost through diarrhea. ??? In rare cases, you may need surgery??if treatment doesn???t??cure severe symptoms. To reduce symptoms: ??? Drink plenty of fluids to replace water lost through diarrhea. Talk with your provider or nurseabout which fluids are best. ??? Follow your provider???s instructions for when and what to eat. ??? Unless your provider tells you to do so, don't take medicines for diarrhea. ??? Tell your providerif symptoms return. Even after treatment,??C. diff??may come back. Your provider may give you an additional treatment if your symptoms come back. Or if you're not able to clear the C. diff infection with a standard course of treatment. This could include: ??? A longer, decreasing course (called a taper) of treatment with the antibiotic vancomycin and metronidazole. ??? A procedure (fecal transplant) in which normal fecal material is put into your intestines. This is done to give you the good bacteria again and stop the C diff infection from coming back. ??? A medicine called bezlotoxumab. In some cases, it can help prevent your symptoms from returning. ?? What are possible complications of C. diff infection? Complications include: ??? Fluid loss (dehydration) ??? Electrolyte imbalances ??? Low protein in the blood ??? Severe widening (dilation) and inflammation of the large intestine (toxic megacolon) ??? A hole (perforation) in the bowel (often caused by toxic megacolon) ??? Low blood pressure ??? Kidney failure ??? Inflammation or infection all over the body ? How is C. diff prevented? Hospitals and nursing homes take these steps to help prevent??C. diff??infections: ??? Limiting use of antibiotics.??Giving antibiotics only when needed can help reduce??C. diff??infections. ??? Handwashing.??Hospital staff should wash their hands before and after treating each person. They should also wash their hands after touching any surface in someone's room. Washing hands with soap and clean, running water for at least 20 seconds works better than alcohol-based hand remelt worker for C. diff. ??? Protective clothing.??Healthcare workers should wear gloves and a gown when entering the room of someone with??C. diff infection. They should remove these items before leaving andthen wash their hands. ??? Private rooms.??People with??C. diff??should be in private rooms. This is to prevent the spread of infection. ??? Thorough cleaning.??Equipment and rooms should be cleaned and disinfected every day and deep-cleaned between each new person staying there. ??? Education. Everyone should be shown the best ways to prevent infection. You can do the following to help prevent C. diff: ??? Take antibiotics only when you really need them.??Antibiotics don???t help treat illnesses caused by viruses. This includes colds and the flu. Don???t ask for antibiotics from your healthcare provider if they say they won???t work. ??? When you're given antibiotics, take them as directed.??Don???t take more or less than the dosage prescribed. Unless otherwise instructed, finish the entire pres cription even if you feel better. ??? Wash your hands carefully.??Do this after using the bathroom and before eating. Use plenty of soap and clean, running water. And wash for at least 20 seconds. Alcohol-based hand remelt worker may not work against??C. diff??germs. ??? Teach children correct handwashing. Show them good handwashing methods in all situations. In a hospital or care facility When visiting someone who has C. diff infection: ??? Wash your hands well. Wash your hands before and after visiting the person. Use soap and water.Alcohol-based hand remelt worker??may not work against??C. diff. They're not advised after contact with someone with C diff. ??? If the staff asks you to, wear gloves. Take any other steps you're asked marcus to help prevent infection. Caring for someone with C. diff infection Take these steps when caring for someone who has C. diff infection: ??? If instructed, wear gloves when caring for the person. Throw the gloves away after each use. Then wash your hands well. ??? Wash the person???s clothes, bed linens, and towels separately. Use hotwater. Use both detergent and liquid bleach. ??? Disinfect surfaces in the person???s room. This includes the phone, light switches, and remote controls. Practice good handwashing ??? Use clean, running water and plenty of soap. Rub your hands together well. ??? Clean your whole hand.??Wash under nails, between fingers, and up your wrists. ??? Wash for at least??15 to 20??seconds.? Rinse.??Let the water run down your fingers, not up your wrists. ??? Dry your hands well with disposable paper towels.??Then use a paper towel to turn off the faucet and open the door. ?? Last Reviewed Date: 2023 00:00:00 ?? [employer]. All rights reserved. This information is not intended as a substitute for professional medical care. Always follow your healthcare professional's instructions. ?? Patient Care team information Care Team Personnel Name: Va Lorenzo RN Position: [facility] RN Member Role: Primary Care Nurse Name: Donna Keller RN Position: S RN Member Role: Primary Care Nurse Name: Raya Parks Position: [facility] RN Member Role: Primary Care Nurse Name: Afia Segura MD Position: Reference Physician Member Role: PCP Address: [address] [place] [address] Telecom: Care Team Related Persons Name: JUAN M CAHPA Name: KAITLIN CHAPA Insurance Providers Guarantor name: [employer] Plan Information #: 1 Payer: MEDICARE B Payer Identifier: DEDE Member Number: [id number] Group Number: [id number] Subscriber Identifier: [id number] Relationship to Subscriber: self Coverage Type: DEDE Coverage Verification Date: DEDE Telecom: DEDE Address:
== END 2025-01-04 15:28 | disposition home or self-care (01) ==
LOC: HO.HMCHD 14:35
PROVIDERS: PCP Internal Medicine; Visit Provider Internal Medicine
DX: Z09 Encounter for follow-up examination after completed treatment for conditions other than malignant neoplasm (principal); Z98.890 Other specified postprocedural states; C61 Malignant neoplasm of prostate; C79.51 Secondary malignant neoplasm of bone; A04.72 Enterocolitis due to Clostridium difficile, not specified as recurrent

== ENCOUNTER → 2025-01-04 14:34 | Outpatient (BNVA) | payer MEDICARE, OTHER, SELFPAY | PROVIDERS: PCP Internal Medicine; Visit Provider Internal Medicine | DX: Z09 Encounter for follow-up examination after completed treatment for conditions other than malignant neoplasm (principal); C61 Malignant neoplasm of prostate; C79.51 Secondary malignant neoplasm of bone; A04.72 Enterocolitis due to Clostridium difficile, not specified as recurrent; I10 Essential (primary) hypertension; K21.9 Gastro-esophageal reflux disease without esophagitis; Z79.899 Other long term (current) drug therapy; Z98.890 Other specified postprocedural states | CPT/HCPCS: 96127; 99202 ==

== ENCOUNTER → 2025-01-05 09:47 | Outpatient (REF) | payer MEDICARE, OTHER, SELFPAY ==
--- NOTE | ~2025-01-05 | NM_ITS ---
EXAMINATION: NM BONE SCAN WHOLE BODY HISTORY: Metastatic prostate cancer with bone Mets. TECHNIQUE: A total body bone scan was performed following the intravenous administration of 25 mCi technetium 99m-MDP. Whole body planar images were obtained. COMPARISON: Comparison is made with the prior examination dated 06/30/2024. FINDINGS: Again seen are foci of increased activity involving the bilateral ribs, consistent with metastatic disease. A left 9th rib lesion appears more elongated than on the prior study. There are new lesions in the left 7th and 11th ribs. A lesion in the right 5th rib also appears slightly more elongated. Additional rib lesions are also seen. Again seen is a focus of increased activity in the midshaft of the right humerus and the midshaft of the left femur. There are foci of increased activity in the right and left ischium which appear new. An intense focus of increased uptake is also seen in the mid sacrum which is likely new. Evaluation is somewhat limited by a large amount activity in the urinary bladder. Activity at the shoulders is likely degenerative in nature. There is collimation of activity in the left ureter, suggestive of ureteral obstruction. Normal right renal uptake is noted. NM/NM bone scan whole body IMPRESSION: Findings consistent with progression of metastatic disease as described above. Electronically signed by: Rolan Robertson MD 01/05/2025 02:21 PM EDT
== END ==
LOC: HO.NUCMED 09:47
PROVIDERS: Visit Provider Internal Medicine Medical Oncology
DX: C61 Malignant neoplasm of prostate (principal); C79.51 Secondary malignant neoplasm of bone
CPT/HCPCS: 78306; A9503

== ENCOUNTER → 2025-01-05 09:49 | Outpatient (BNV) | payer MEDICARE, OTHER, SELFPAY | PROVIDERS: Visit Provider Radiology Diagnostic Radiology | DX: C61 Malignant neoplasm of prostate (principal) | CPT/HCPCS: 78306 ==

== ENCOUNTER 2025-01-19 08:39 | Emergency (ER) | payer MEDICARE, OTHER, SELFPAY ==
[2025-01-19] VITALS (7 sets, daily range): BP systolic 113–160; BP diastolic 78–94; PULSE 99–118; RESP 14–18; TEMP 36.3–36.6; O2SAT 97–100; BMI 22.3
--- NOTE | 2025-01-19 | ECG_ITS ---
Test Reason : dizziness Blood Pressure : */* mmHG Vent. Rate : 102 BPM Atrial Rate : 102 BPM P-R Int : 138 ms QRS Dur : 86 ms QT Int : 304 ms P-R-T Axes : 47 16 99 degrees QTcB Int : 396 ms Sinus tachycardia with occasional Premature ventricular complexes Nonspecific T wave abnormality Abnormal ECG When compared with ECG of 03-Dec-2024 17:08, ST no longer elevated in Anterior leads Nonspecific T wave abnormality, worse in Inferior leads Nonspecific T wave abnormality now evident in Anterolateral leads Referred By: Generic ED Physician Electronically Signed By: BHAVIN VICENTE
--- NOTE | 2025-01-19 09:12 | ED.GENADULT ---
HPI - General Adult General Chief complaint: General Medical Stated complaint: BLOOD IN STOOL,DIARRHEA PER EMS Time Seen by Provider: 01/19/25 09:12 Source: patient, family (patient's son) and EMS Mode of arrival: EMS Limitations: no limitations History of Present Illness ED Provider: Amina Osuna PA-C HPI narrative: Patient is an 84 year old assigned male at with a history of c.diff for which he is on multiple antibiotics, prostate cancer with mets to bone but not brain, and CAD with recent STEMI on 12/03 with 2 stents placed on ASA + BRilinta + Statin + Coreg + ARB presenting to the emergency department today after an episode of dizziness / lightheadedness, diarrhea, and bright red blood in his stool. Patient states that he had C.Diff recently for which he continues to be treated and his diarrhea had resolved but then this morning, the diarrhea re-started with lower abdominal cramping and bright red blood in his stools. Patient states that he has had multiple episodes of diarrhea and when he got up after his last one, he was very lightheaded/dizzy. Patient denies any nausea, vomiting, fever, chills, blurry vision, double vision, loss of vision, chest pain, difficulty breathing, shortness of breath, back pain, night sweats, pain with urination, increased urinary frequency, increased urinary urgency, blood in his urine or stool, syncope or a near syncopal episode, recent trauma or falls, bowel incontinence, bladder incontinence, or any other complaints at this time. Relieving factors: none Exacerbating factors: none Associated symptoms: weakness Related Data Home Medications ?Medication ?Instructions ?Recorded ?Confirmed meclizine 25 mg tablet 25 mg PO DAILY PRN Vertigo 09/29/24 12/25/24 calcium 600 mg capsule 600 mg PO DAILY 12/14/24 12/14/24 losartan 25 mg tablet 25 mg PO DAILY 12/14/24 12/25/24 leuprolide acetate (6 month) 45 mg 45 mg IM [id number] 12/25/24 12/25/24 intramuscular syringe kit (Lupron Depot) vancomycin 125 mg capsule mg PO 01/04/25 Previous Rx's ?Medication ?Instructions ?Recorded loperamide 2 mg tablet (Imodium 2 mg PO Q4H PRN Diarrhea #60 tabs 09/22/24 A-D) prednisone 10 mg tablet 10 mg PO DIRECTED #60 tabs 09/29/24 omeprazole 20 mg capsule,delayed 20 mg PO DAILY #90 caps 10/08/24 release ondansetron 8 mg disintegrating 8 mg PO Q8H PRN nausea and 12/14/24 tablet vomiting #60 tabs aspirin 81 mg chewable tablet 81 mg PO DAILY #90 tabs 12/25/24 atorvastatin 80 mg tablet 80 mg PO BEDTIME #90 tabs 12/25/24 carvedilol 6.25 mg tablet 6.25 mg PO BID #60 tabs 12/25/24 ticagrelor 90 mg tablet 90 mg PO BID 90 days #180 tabs 12/25/24 Allergies Allergy/AdvReac Type Severity Reaction Status Date / Time amoxicillin (From Augmentin) Allergy Severe tongue/facial Verified 01/19/25 08:56 swelling clavulanic acid (From Allergy Severe tongue/facial Verified 01/19/25 08:56 Augmentin) swelling Review of Systems Constitutional: Constitutional: Reports no additional constitutional complaints, Denies chills, Denies fever(s), Denies night sweats and Reports weakness Eyes: Eyes: Reports no additional eye complaints, Denies blurry vision, Denies change in vision, Denies diplopia, Denies eye discharge, Denies loss of vision and Denies eye pain ENT: Denies dizziness Cardiovascular: Cardiovascular: Reports no additional cardiovascular complaints, Denies chest pain, Denies lightheadedness, Denies Loss of Consciousness and Denies dyspnea Respiratory: Respiratory: Reports no additional respiratory complaints and Denies dyspnea Gastrointestinal: Gastrointestinal: Reports no additional gastrointestinal complaints, Denies abdominal pain, Denies melena, Reports hematochezia, Reports change in bowel habits, Reports change in stool character and Reports diarrhea Genitourinary: Genitourinary: Reports no additional male genitourinary complaints, Denies hematuria, Denies oliguria, Denies difficulty urinating, Denies dysuria, Denies urinary frequency, Denies urinary hesitancy, Denies urinary incontinence and Denies urinary urgency Musculoskeletal: Musculoskeletal: Reports no additional musculoskeletal complaints, Denies numbness and Denies tingling Neurologic: Denies dizziness, Denies loss of vision, Denies numbness, Denies tingling and Reports weakness Comments: near syncope Psychiatric: Psychiatric: Reports no additional psychiatric complaints Endocrine: Endocrine: Reports no additional endocrine complaints Hematologic/Lymphatic: Hematologic/Lymphatic: Reports no additional hematologic/lymphatic complaints Allergic/Immunologic: Allergic/Immunologic: Reports no additional allergic/immunologic complaints [facility] Past Medical History Attestation statement: The following information was validated with the patient. (all information validated with the patient's son) Source: old records reviewed, obtained from family (patient's son provided additional history and confirmed the history provided by the patient.) and nursing notes reviewed Medical History Prostate cancer metastatic to bone Hemorrhoids Elevated PSA Surgical History Hx of prostate biopsy Family History Family History Mother No problems noted. Father No problems noted. 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 Cognitive needs: No Hearing needs: No (pt throw them away, he's not using them ) Vision needs: Yes (rx ) Physical Exam ED Vital Signs: Vital Signs - 24 hr 01/19/25 08:47 01/19/25 10:08 01/19/25 10:12 Temperature 97.8 F 97.8 F Pulse Rate 99 99 100 Respiratory Rate 16 16 Blood Pressure 158/94 H 158/94 H 146/84 H Pulse Oximetry 99 99 Oxygen Delivery Method Room Air Room Air 01/19/25 10:12 01/19/25 10:13 01/19/25 12:22 Temperature 97.4 F Pulse Rate 114 H 118 H 106 H Respiratory Rate 18 Blood Pressure 113/85 129/80 143/84 H Pulse Oximetry 97 Oxygen Delivery Method Room Air 01/19/25 12:25 Temperature 97.4 F Pulse Rate 106 H Respiratory Rate 14 Blood Pressure 143/84 H Pulse Oximetry 97 Oxygen Delivery Method Room Air BMI result Body Mass Index 22.3 Const General: cooperative, no acute distress, alert and awake Nutritional Appearance: well nourished Orientation/consciousness: patient oriented x3 HENMT Head: Yes normal to inspection and Yes atraumatic Ears: hearing grossly normal bilaterally and external ears normal General nose exam: Normal external nose present, no nasal discharge noted and no epistaxis Face and sinus: Yes normal facial exam, No abrasion and No laceration Mouth: Normal oral and palatal mucosa present, no drooling and no muffled voice Eyes General: appearance normal, both eyes and all related structures Periorbital: periorbital findings normal Eyelids: Yes eyelids normal Conjunctivae: conjunctivae normal Pupils: Equal, round and reactive pupils present EOM: EOMs intact bilaterally Neck Neck: Yes normal visual inspection, Yes full ROM and Yes no lymphadenopathy Resp Effort & Inspection: normal respiratory effort and able to speak in complete sentences GI Inspection: Yes normal to inspection Palpation (GI): Soft to palpation, not firm, nontender, no guarding and not rigid Rectal Exam - Male: Yes normal sphincter tone and Yes hemorrhoids Neuro General: patient oriented x3, moves all extremities and CN's II-XI intact bilaterally Cranial nerves: Yes Equal, round and reactive pupils present Cognition (Neuro): normal cognition Extrem General: Yes normal to inspection, Yes full ROM and Yes capillary refill normal Psych Appearance: grossly normal Mental Status: mental status grossly normal Affect: normal affect Attitude: cooperative Thought process: Normal thought process present Thought content: Normal thought content present Insight: Good insight present (Psych) Medications Administered Discontinued Medications Generic Name Dose Route Start Last Admin Trade Name Freq PRN Reason Stop Dose Admin Sodium Chloride 1,000 mls @ 999 mls/hr 01/19/25 10:30 01/19/25 12:59 Ns IV 01/19/25 11:30 Infused .Q1H1M BAUTISTA Infusion Medical Decision Making Medical Decision Making [facility] Narrative: Patient is an 84 year old assigned male at with a history of c.diff for which he is on multiple antibiotics, prostate cancer with mets to bone but not brain, and CAD with recent STEMI on 12/03 with 2 stents placed on ASA + BRilinta + Statin + Coreg + ARB presenting to the emergency department today after an episode of dizziness / lightheadedness, diarrhea, and bright red blood in his stool. Patient's physical exam showed external hemorrhoids and normal brown stool per rectum. Patient's blood work was unremarkable. Patient's EKG was unremarkable. Patient's stool culture was negative for c.diff but was positive for astrovirus. I explained my physical exam findings as well as all test results to the patient and the patient's son. I answered all questions asked by the patient and the patient's son. Patient received IV fluids which, upon re-evaluation, he stated it helped his symptoms significantly. I discussed admission with the patient and his son given his ongoing diarrhea and near syncope however, the patient declined. Patient stated that he feels OK enough to go home and knows to return if things get worse. We had an extensive conversation about the patient maintaining his hydration. I stressed the importance of the patient taking his medication as directed (either prescribed or as the over the counter packaging recommends). I stressed the importance of the patient following up with his primary care provider. I stressed the importance of the patient returning to the emergency department immediately if his symptoms were to worsen or if he were to develop any dizziness, shortness of breath, difficulty breathing, chest pain, blurry vision, loss of vision, nausea, vomiting, abdominal pain, fever, chills, back pain, or any other complaints. Patient and the patient's son verbalized agreement and understanding with this treatment plan and discharge. Differential Diagnosis Differential Diagnoses: The differential diagnosis associated with the presentation includes Astrovrius Viral illness Diarrhea Weakness C.Diff Admission/Observation Consideration of admission/observation: Escalation of care including admission/observation considered Patient was offered admission for continued IV hydration and declined. Lab Data [facility] Lab Attestation statement: I reviewed the patient's lab results. My interpretation of these results are in the [facility] Rationale portion of this note. 01/19/25 09:28 01/19/25 09:28 Labs: Lab Results 01/19/25 01/19/25 Range/Units 09:28 10:37 WBC 2.1 L (4.8-10.8) X10*3/uL RBC 3.90 L (4.60-5.80) X10*6/uL Hgb 12.3 L (14.0-18.0) g/dl Hct 36.7 L (42.0-52.0) % MCV 94.1 (80.0-98.0) fL MCH 31.5 (27.0-33.0) pg MCHC 33.5 (31.0-36.0) g/dl RDW 17.2 H (11.0-16.0) % Plt Count 148 L (160-400) X10*3/uL MPV 9.2 L (9.4-12.4) fL Immature Gran % (Auto) 2.4 H (0.0-0.4) % Neut % (Auto) 47.3 (45-73) % Lymph % (Auto) 45.5 H (20-40) % [place] % (Auto) 1.9 L (2-11) % Eos % (Auto) 0.5 (0-4) % Baso % (Auto) 2.4 H (0-2) % Lymph # (Auto) 1.0 L (1.2-4.9) X10*3/uL [place] # (Auto) 0.0 L (0.1-1.2) X10*3/uL Eos # (Auto) 0.0 (0.0-0.4) X10*3/uL Baso # (Auto) 0.1 (0.0-0.2) X10*3/uL Abs Immat Gran (auto) 0.05 H (0.00-0.03) X10*3/uL Absolute Neuts (auto) 1.0 L (2.0-8.3) x10*3/uL Absolute Nucleated RBC 0.000 (0.0-0.012) X10*3/uL Nucleated RBC % (auto) 0.0 (0.0-0.2) /100WBC PT 11.9 (10.9-12.4) SEC INR 1.0 (0.9-1.1) APTT 29.1 (26.0-36.8) SEC Sodium 139 (135-145) mmol/L Potassium 4.4 (3.3-5.1) mmol/L Chloride 109 H (96-108) mmol/L Carbon Dioxide 23 (22-29) mmol/L Anion Gap 11 L (12-20) BUN 21 H (9-16) mg/dL Creatinine 1.00 (0.5-1.4) mg/dL Estim Creat Clear Calc 49.8 Estimated GFR > 60 Random Glucose 108 (60-115) mg/dL Calcium 8.5 (8.4-10.2) mg/dL Magnesium 1.9 (1.6-2.6) mg/dL Total Bilirubin 0.6 (0.0-1.0) mg/dL AST 30 (5-37) U/L ALT 24 (0-40) U/L Alkaline Phosphatase 34 L (39-117) U/L Troponin I High Sens 23.9 D (<3.5-35.0) ng/L Total Protein 5.7 L (6.5-8.0) g/dL Albumin 3.6 (3.5-5.0) g/dL Stl C. cayetanensis PCR Not Detected (Not Detect.) Stool Rotavirus A PCR Not Detected (Not Detect.) Stl Adenov F 40/41 PCR Not Detected (Not Detect.) Stool Astrovirus (PCR) Detected A (Not Detect.) Stool Campylobacter PCR Not Detected (Not Detect.) Stool Cryptosporidium PCR Not Detected (Not Detect.) Stl Sh Tox Pr E STEC PCR Not Detected (Not Detect.) Stool E coli O157 PCR Not applicable (Not Detect.) Stl Enterotoxigenic E PCR Not Detected (Not Detect.) Stool EPEC (PCR) Not Detected (Not Detect.) Stool EAEC (PCR) Not Detected (Not Detect.) Stl E. histolytica PCR Not Detected (Not Detect.) Stool Giardia Lamblia PCR Not Detected (Not Detect.) Stl P. shigelloides PCR Not Detected (Not Detect.) Stool Salmonella PCR Not Detected (Not Detect.) Stool Sapovirus (PCR) Not Detected (Not Detect.) Stl Shigella/EIEC PCR Not Detected (Not Detect.) St Y.enterocolitica PCR Not Detected (Not Detect.) Stool Vibrio (PCR) Not Detected (Not Detect.) Stl Vibrio cholerae PCR Not Detected (Not Detect.) Stl Norovirus GI/GII PCR Not Detected (Not Detect.) C. difficile Tox B Gene NEGATIVE (Negative) Independent Interpretation I performed an independent interpretation of an: EKG Interpretation: I independently interpreted this EKG and am in agreement with the below findings: Vent. Rate: 102 BPM Atrial Rate: 102 BPM P-R Int: 138 ms QRS Dur: 86 ms QT Int: 304 ms P-R-T Axes: 47 16 99 degrees QTcB Int: 396 ms Sinus tachycardia with occasional Premature ventricular complexes Nonspecific T wave abnormality Abnormal ECG When compared with ECG of 03-Dec-2024 17:08, ST no longer elevated in Anterior leads Nonspecific T wave abnormality, worse in Inferior leads Nonspecific T wave abnormality now evident in Anterolateral leads Electronically Signed By: VIJAY VICENTE Dictated By: Vijay Vicente MD Signed By: Electronically signed by Vijay Vicente MD 01/19/25 1407 Radiology Impression Discussion of test interpretation with radiology: I have reviewed the radiologist's reading. Independent Historian Clinical information obtained from an independent historian. History obtained from or confirmed by: Other (patient's son provided additional history and confirmed the history provided by the patient.) Critical Care Time Critical Care Time Critical Care Time: Yes Total Critical Care Time: 33 Attestation: I spent 33 minutes of Critical Care Time with this patient. This does not include time spent on separately reported billable procedures. Discharge Plan Discharge Clinical Impression: Near syncope, Diarrhea, Astrovirus enteritis Patient Disposition: Home, Self-Care Instructions: Acute Diarrhea (ED), Near Syncope (ED) Additional Instructions: Follow up with your primary care provider. Return to the emergency department immediately if your symptoms worsen or if you develop any numbness, tingling, dizziness, shortness of breath, difficulty breathing, chest pain, blurry vision, loss of vision, nausea, vomiting, abdominal pain, fever, chills, back pain, or any other complaints. Please see the information below about our Patient Portal. If you are not yet enrolled in the [facility] Patient Portal, you will receive an enrollment email invitation following your visit to any [facility] setting. You may also self-enroll in the Patient Portal by visiting our website: [email or web address] The following information is required to access the Patient Portal: - Your [facility] Medical Record Number - Your personal home email address (must match what is in your electronic medical record, Registration staff can assist with this) - Name - Date of Capabilities of the Patient Portal: - Message some providers - View upcoming appointments - Access your health summary, medical history, and visit history - View current conditions and allergies - View procedure and lab results - View your medications, including guidelines, side effects, and precautions - Complete pre-appointment questionnaires requested by your provider - Ready summary reports of your office visits and procedures To access the Patient Portal Mobile Della, follow these directions: - Search Fastly in the Della Store or My Team Zone Store - Download the Della - Search for [facility] - Enter your login/password Prescriptions: No Action loperamide [Imodium A-D] 2 mg Tablet 2 mg PO Q4H PRN (Reason: Diarrhea) Qty: 60 0RF Rx Instructions: administer after each loose stool until symptoms controlled; do not exceed 8 mg per 24 hrs prednisone 10 mg Tablet 10 mg PO DIRECTED Qty: 60 3RF Rx Instructions: see taper instructions meclizine 25 mg Tablet 25 mg PO DAILY PRN (Reason: Vertigo) omeprazole 20 mg Capsule,Delayed Release(Dr/Ec) 20 mg PO DAILY Qty: 90 3RF losartan 25 mg Tablet 25 mg PO DAILY ondansetron 8 mg Tablet,Disintegrating 8 mg PO Q8H PRN (Reason: nausea and vomiting ) Qty: 60 0RF calcium 600 mg Capsule 600 mg PO DAILY Lupron Depot (6 Month) 45 mg syringe kit 45 mg IM [id number] carvedilol 6.25 mg tablet 6.25 mg PO BID Qty: 60 5RF Rx Instructions: must administer with a meal/food dose increased ticagrelor 90 mg tablet 90 mg PO BID 90 Days Qty: 180 3RF aspirin 81 mg tablet,chewable 81 mg PO DAILY Qty: 90 3RF atorvastatin 80 mg tablet 80 mg PO BEDTIME Qty: 90 3RF vancomycin 125 mg capsule PO Referrals: Afia Segura MD [Primary Care Provider, Endocrinology] Interventions: ED Discharge Assessment Last Done: 01/19/25 12:22 Discharge Date/Time: 01/19/25 13:00 Print Language: Persian
[2025-01-19 09:34] LABS: Basophils Absolute Auto 0.1 X10*3/uL (0.0-0.2); Basophils Percent Auto 2.4 % (0-2); Eosinophils Percent Auto 0.5 % (0-4); Hematocrit 36.7 % (42.0-52.0); Hemoglobin 12.3 g/dl (14.0-18.0); Imm Gran Abs Auto 0.05 X10*3/uL (0.00-0.03); Imm Gran Pct Auto 2.4 % (0.0-0.4); Lymphocytes Percent Auto 45.5 % (20-40); Mean Corpuscular HGB Conc 33.5 g/dl (31.0-36.0); Mean Corpuscular Hemoglobin 31.5 pg (27.0-33.0); Mean Corpuscular Volume 94.1 fL (80.0-98.0); Mean Platelet Volume 9.2 fL (9.4-12.4); Monocytes Percent Auto 1.9 % (2-11); Neutrophils Percent Auto 47.3 % (45-73); Platelet Count 148 X10*3/uL (160-400); Red Cell Distribution Width 17.2 % (11.0-16.0)
[2025-01-19 09:35] LABS: White Blood Count 2.1 X10*3/uL (4.8-10.8)
[2025-01-19 09:40] LABS: Prothrombin Time 11.9 SEC (10.9-12.4)
[2025-01-19 09:43] LABS: Partial Thromboplastin Time 29.1 SEC (26.0-36.8)
[2025-01-19 09:48] LABS: Alanine Aminotransferase 24 U/L (0-40); Albumin Level 3.6 g/dL (3.5-5.0); Alkaline Phosphatase 34 U/L (39-117); Anion Gap 11 (12-20); Aspartate Amino Transferase 30 U/L (5-37); Bilirubin Total 0.6 mg/dL (0.0-1.0); Blood Urea Nitrogen 21 mg/dL (9-16); Calcium 8.5 mg/dL (8.4-10.2); Carbon Dioxide 23 mmol/L (22-29); Chloride 109 mmol/L (96-108); Creatinine Clr Calc Pharmacy 49.8; Estimated Glomerular Filt Rate > 60; Glucose Random 108 mg/dL (60-115); Magnesium 1.9 mg/dL (1.6-2.6); Potassium 4.4 mmol/L (3.3-5.1); Sodium 139 mmol/L (135-145); Total Protein 5.7 g/dL (6.5-8.0)
[2025-01-19 09:55] LABS: Troponin-I High Sensitivity 23.9 ng/L (<3.5-35.0)
--- NOTE | 2025-01-19 10:14 | PC.NURSE ---
Patient A&O x 3. [place]. Patient presents to ED c/o diarrhea with bright red blood and lower abdominal cramping. Patient attempted to stand after using the toilet at home and had a syncople episode. Denies head strike, pain, SOB, fever/chills, n/v. Patient hypertensive 150/85 patient states I didnt take my morning medications . All other VSS and up to date. Orthos performed, patient denied lightheadedness or dizziness during trial. Call barraza in reach. Plan of care on going
[2025-01-19] MEDS: 0.9 % Sodium Chloride 1,000 ML 999 ML IV (11:13)
--- NOTE | 2025-01-19 11:24 | PC.NURSE ---
Stool sample collected/sent, precautions in place for possible cdiff.
[2025-01-19 11:35] LABS: CDiff Gene PCR NEGATIVE (Negative)
[2025-01-19 12:09] LABS: Adenovirus F 40/41 Not Detected (Not Detect.); Astrovirus Detected (Not Detect.); Campylobacter Not Detected (Not Detect.); Cryptosporidium Not Detected (Not Detect.); Cyclospora cayetanensis Not Detected (Not Detect.); E. coli EAEC Not Detected (Not Detect.); E. coli EPEC Not Detected (Not Detect.); E. coli ETEC Not Detected (Not Detect.); E. coli STEC Not Detected (Not Detect.); Entamoeba histolytica Not Detected (Not Detect.); Giardia lamblia Not Detected (Not Detect.); Norovirus GI/GII Not Detected (Not Detect.); Plesiomonas shigelloides Not Detected (Not Detect.); Rotavirus A Not Detected (Not Detect.); Salmonella Not Detected (Not Detect.); Sapovirus Not Detected (Not Detect.); Shigella sp./EIEC Not Detected (Not Detect.); Vibrio Not Detected (Not Detect.); Vibrio Cholerae Not Detected (Not Detect.); Yersinia enterocolitica Not Detected (Not Detect.)
== END 2025-01-19 13:00 | disposition home or self-care (01) ==
PROVIDERS: Physician Assistant Medical; Emergency Provider Emergency Medicine; PCP Internal Medicine
DX: R55 Syncope and collapse (principal); A08.32 Astrovirus enteritis; R19.7 Diarrhea, unspecified; R42 Dizziness and giddiness; R53.1 Weakness; C61 Malignant neoplasm of prostate; C79.51 Secondary malignant neoplasm of bone; Z86.19 Personal history of other infectious and parasitic diseases
CPT/HCPCS: 36415; 80053; 83735; 84484; 85025; 85610; 85730; 87493; 87507; 93005; 96360; 96361; 99284; 99285

== ENCOUNTER → 2025-01-19 09:10 | Outpatient (BNV) | payer MEDICARE, OTHER, SELFPAY | PROVIDERS: Emergency Provider Emergency Medicine; PCP Internal Medicine; Visit Provider Internal Medicine | DX: I49.3 Ventricular premature depolarization (principal); R00.0 Tachycardia, unspecified | CPT/HCPCS: 93010 ==

== ENCOUNTER → 2025-02-06 12:46 | Outpatient (REF) | payer MEDICARE, OTHER, SELFPAY ==
--- NOTE | 2025-02-06 12:50 | CA_ITS ---
Transthoracic Echocardiogram Patient (Last, First, Middle): Harshad Salguero, Gender: Male Date of : 1940 Age: 84 Procedure Date: 02/06/2025 Procedure Type: Transthoracic Echocardiogram Location: OP Height: 172.72 cm Weight: 66.68 kg BSA: 1.79 m2 Heart Rate: bpm BP: 140 / 76 mmHg Billing Supervisor: TO/RC Referring MD: [place] Jose JOB PRINTERAsaf Symptoms: I42.9 - Cardiomyopathy, unspecified Study Quality: Fair Conclusions: - The left ventricular systolic function is mildly decreased. The calculated ejection fraction is 43% by biplane method. - The apex, apical inferior, apical septum, and mid anteroseptal segments are akinetic. Findings Procedure Information The patient declines contrast. Left Ventricle Normal left ventricular cavity size. The left ventricular systolic function is mildly decreased. The calculated ejection fraction is 43% by biplane method. There is evidence of regional wall motion abnormalities. There is moderate septal and moderate basal asymmetric hypertrophy. Wall Motion Rest Echo Findings The apex, apical inferior, apical septum, and mid anteroseptal segments are akinetic. Venous The inferior vena cava is normal in size and collapses greater than 50% with inspiration. Prior Study Comparison Changes noted compared to prior study dated: 07/05/2024. see comment on wall motion. Measurements 2D Linear Measurements IVSd: 1.35 0.6-0.9/0.6-1.0 cm LVIDd: 3.94 3.9-5.3/4.2-5.9 cm LVIDd Index: 2.20 2.4-3.2/2.2-3.1 cm/m2 LVIDs: 2.93 2.0-3.6 cm LVPWd: 1.01 0.7-1.1 cm LV Mass: 196.44 67-162/88-224 g LV Mass Index: 109.74 43-95/49-115 g/m2 LVOT Diam: 2.10 3.0+(-)1.3 cm 2D Systolic Function EF 4C: 41.10 >55% EF 2C: 44.60 >55% EF BiP: 43.10 >55% LVOT LVOT Pk [place]: 0.77 LVOT Mn [place]w: 0.53 LVOT VTI: 0.15 LVOT Pk Grad: 2.00 LVOT Mn Grad: 1.00 LVOT Diam: 2.10 LVOT Area: 3.46 Tricuspid Valve RA Press: 3.00 Updated in Other Vendor System with Status of Final Vijay Lozano MD electronically signed on 02/08/2025 10:01:34 AM with status of Final
== END ==
LOC: HO.CARD 12:46
PROVIDERS: Visit Provider Nurse Practitioner Family
DX: I25.10 Atherosclerotic heart disease of native coronary artery without angina pectoris (principal); I42.9 Cardiomyopathy, unspecified
CPT/HCPCS: 93308

== ENCOUNTER → 2025-02-06 12:50 | Outpatient (BNV) | payer MEDICARE, OTHER, SELFPAY | PROVIDERS: Visit Provider Internal Medicine | DX: I42.2 Other hypertrophic cardiomyopathy (principal) | CPT/HCPCS: 93308 ==

== ENCOUNTER 2025-02-09 13:27 | Outpatient (AMB) | payer MEDICARE, OTHER, SELFPAY ==
[2025-02-09 11:44] VITALS: BP 118/76; PULSE 109; TEMP 36.3; O2SAT 98; BMI 21.9
--- NOTE | 2025-02-09 11:44 | A.OFFPC_ITS ---
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 Wiring Required: No Accompanied by: Self / Same As Patient Allergies amoxicillin (From Augmentin) Allergy (Severe, Verified 02/09/25 11:44) tongue/facial swelling clavulanic acid (From Augmentin) Allergy (Severe, Verified 02/09/25 11:44) tongue/facial swelling Tobacco use date assessed: 02/09/25 Fall risk assessment: No Falls in past year Last assessed Fall Risk: 02/09/25 Dental Screening Dental Screen Date: 02/09/25 Did you have a dental visit in the last 12 months?: Yes Did you have a dental problem in the last 6 months where you did not have access to dental care?: No HPI HPI Comments History of Present Illness Details The patient is a 84 year old male with past medical history of hypertension, prostate cancer, BPH, hearing loss presenting for follow up. Does not follow at the [place] Hospitalized December at [facility] for C Diff colitis. Continues vancomycin until January 17. He was evaluated in the ER on 01/19 for near syncope/weakness with increase in abdominal cramping. Patient's stool culture was negative for c.diff but was positive for astrovirus. I explained my physical exam findings as well as all test results to the patient and the patient's son. I answered all questions asked by the patient and the patient's son. Patient received IV fluids which, upon re-evaluation, he stated it helped his symptoms significantly. I discussed admission with the patient and his son given his ongoing diarrhea and near syncope however, the patient declined. Patient stated that he feels OK enough to go home and knows to return if things get worse. We had an extensive conversation about the patient maintaining his hydration. He is feeling better. He is feeling less weak. His bowel movements have normalized Hospitalized November for [place]. Received 2 stents. Denies chest pain, exertional dyspnea CV: Follows with cardiology. on losartan brilinta, lipitor. Blood pressure is well controlled. Urology: Follows with [facility]. Prostate cancer-on chemotherapy. Follows with Dr Klein. Did not tolerate xtandi. ROS CONSTITUTIONAL: Denies weight loss, fever and chills. HEENT: Denies changes in vision and hearing. RESPIRATORY: Denies SOB and cough. CV: Denies palpitations and CP GI: Denies abdominal pain, nausea, vomiting and diarrhea. : Denies dysuria and urinary frequency. MSK: Denies new myalgia and joint pain. SKIN: Denies rash and pruritus. NEUROLOGICAL: Denies headache PSYCHIATRIC: Denies recent changes in mood. PHYSICAL EXAM: GENERAL: Alert and oriented x 3. NAD EYES: EOMI. Anicteric. HENT: Moist mucous membranes. No scleral icterus. No cervical lymphadenopathy. LUNGS: Clear to auscultation bilaterally. CARDIOVASCULAR: Regular rate and rhythm. No murmur. No JVD. ABDOMEN: Soft, non-tender +bs EXTREMITIES: No edema. Non-tender. SKIN: No rashes or lesions. Warm. NEUROLOGIC: No focal neurological deficits. CN II-XII grossly intact PSYCHIATRIC: Cooperative. Appropriate mood and affect [facility] Medical History Prostate cancer metastatic to bone Hemorrhoids Elevated PSA Surgical History Hx of prostate biopsy Family History Mother No problems noted. Father No problems noted. 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 1. Little interest or pleasure in doing things: not at all 2. Feeling down, depressed, or hopeless: not at all 3. Trouble falling or staying asleep, or sleeping too much: not at all 4. Feeling tired or having little energy: not at all 5. Poor appetite or overeating: not at all 6. Feeling bad about yourself - or that you are a failure or have let yourself or your family down: not at all 7. Trouble concentrating on things, such as reading the newspaper or watching television: not at all 8. Moving or speaking so slowly that other people could have noticed. Or the opp osite - being so fidgety or restless that you have been moving around a lot more than usual: not at all 9. Thoughts that you would be better off or of hurting yourself in some way: not at all Total score: 0 Source: Developed by Drs. Rolan Lozano, Leah Hamilton, Husam Rosado and colleagues, with an educational derek from [employer]. Thrive Questionnaire Date Thrive assessed: 02/09/25 I am a: Patient Within the past 12 months, did the food you bought not last and you didn't have the money to get more?: Never true Within the past 12 months, did you worry whether your food would run out before you got money to buy more?: Never true Do you have trouble paying for medicines?: No Do you have trouble getting transportation to medical appointments?: No Do you have trouble paying your heating and electricity bill?: No Do you have trouble taking care of your child, family member or friend?: No Do you have trouble with day-to-day activities such as bathing, preparing meals, shopping, managing finances, etc.?: No Are you currently unemployed and looking for a job?: No Are you interested in more education?: No THRIVE Score: 0 AUDIT C Alcohol Use Questionnaire (AUDIT-C) 1. How often do you have a drink containing alcohol?: Never 3. How often do you have six or more drinks on one occasion?: Never Total Score: 0 IRVING-7 AMB Questionnaire IRVING-7 Date IRVING - 7 assessed: 02/09/25 Feeling nervous, anxious, or on edge: 0 = Not at all Not being able to stop or control worryin = Not at all Worrying too much about different things: 0 = Not at all Trouble relaxin = Not at all Being so restless that it is hard to sit still: 0 = Not at all Becoming easily annoyed or irritable: 0 = Not at all Feeling afraid as if something awful might happen: 0 = Not at all Total IRVING-7 score (0-4 normal; 5-9 mild; 10-14 moderate; 15-21 severe): 0 Source: Developed by Drs. Rolan Lozano, Leah Hamilton, Husam Rosado and colleagues, with an educational derek from [employer]. Physical exam (Primary Care) Vital Signs: Last Vital Signs Temp 97.3 F 02/09/25 11:44 Pulse 109 H 02/09/25 11:44 BP 118/76 02/09/25 11:44 Pulse Ox 98 02/09/25 11:44 Oxygen Delivery Method Room Air 02/09/25 11:44 BMI result Body Mass Index 21.9 Tobacco/Smoking Status: Tobacco use Status Tobacco use date assessed 02/09/25 02/09/25 11:45 Patient Tobacco Use Status Never used Tobacco 02/09/25 11:45 e-Cigarette/Vaping Use Never Used 02/09/25 11:45 PHQ-9: PHQ-9 Score PHQ-9: Total score 0 02/09/25 13:39 Thrive Assessment: Date of Thrive Assessment Date Thrive assessed 02/09/25 02/09/25 11:45 Coding Level of Care Code Est Pt Level 4 (75539) Diagnoses Colitis K52.9 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 Prostate cancer-continue follow up with heme/onc Medications: On Hold carvedilol Hold Comment: Doctor's Order 6.25 mg PO BID 60 tabs 5RF
--- OUTSIDE RECORDS SUMMARY | 2025-02-09 13:31 | XMS_ITS | Encounter Summary ---
Author Organization [facility] Address [address] [place] [address] Phone Care Team Providers Care School Patrol Name Role Phone Kashif Ly MD Primary Care Provider Self-Referred, Patient Unavailable Unavailab Chinmay Bear [facility] Unavailable [phone] Carlos Mi MD Unavailable Ean Klein MD Unavailable Encounter Details Date Type Department Care Team (Late st Contact Info) Description 09/03/2023 Ancillary Orders Outside Imaging Chinmay Rg [facility] [address] [place] [address] [email or web address]. U Social History Tobacco Use Types Packs/Day Years Used Date Smoking Tobacco: Never Assessed Child or Family Care Answer Date Record ed Do you have problems with on e of the following making it difficult for you to work, study, or receive health care? No 09/03/2023 Education Answer Date Recorded Are you interested in more education? Not on susy e 09/02/2023 Are you concerned about learning? Not on file 09/02/2023 No 09/02/2023 No 09/02/2023 Food Answer Date Recorded Within the past 6 months we worried whether our food would run out before we got money to buy more. Never True 09/03/2023 Within the past 6 months the food we bought just didn't last and we didn't have enough money to get more. Never True Residential Stability Answer Date Recor ded What is your housing situation today? I have ozzie sing 09/03/2023 How many times have you move d in the past 12 months? Zero (I did not move) 09/03/2023 Paying for Meds Answer Date Recorded Do you have trouble paying for medicines? No 09/03/2023 Paying Utility Bills Answer Date Record ed Do you have trouble paying your heating or elect ricity bill? No 09/03/2023 Transportation Answer Date Recorded Has the lack of transportati on kept you from medical appointments or from getting medications? No 09/03/2023 Digital Access Answer Date Recorded No 09/02/2023 No 09/02/2023 Reliable internet access at home? Not on file 09/02/2023 Device with a working camera? Not on file Sex and Gender Information Value Date Recorded Sex Assigned at Not on file Legal Sex Male 11:52 AM EST Gender Identity Not on file Sexual Orientation Not on file documented as of this encounter Plan of Treatment Not on file documented as of this encounter Results * CT Chest Outside (No Interpretation) (08/19/2023 12:05 AM EST) Other Narrative JESISCAVONSUSHANTRochelle - 09/03/2023 12:45 PM EST This study is for PACS storage only and not for interpretation. us Chinmay Calderón IMG OUTSIDE IMAGING W/OUT IN TERPRETATION Final Result [facility] documented in this encounter Visit Diagnoses Not on filedocumented in this encounter Care Teams School Patrol Relationship Specialty Start Date End Date Kashif Ly MD [address] [place] [address] [place] [address] PCP - General Internal Medicine 09/02/23 Self-Referred, Patient 09/02/23 Chinmay Rg [facility] [place] [address] [email or web address] Medical Oncology 09/02/23 Carlos Mi MD [address] [place] [address] Urology 09/03/23 Ean Klein MD [address] [place] [id number] 09/03/23 documented as of this encounter Additional Source Comments The information contained in this document represents components of the legal health record. It is not the complete legal health record.[facility]
== END 2025-02-09 14:05 | disposition home or self-care (01) ==
LOC: HO.HMCHD 13:28
PROVIDERS: PCP Internal Medicine; Visit Provider Internal Medicine
DX: K52.9 Noninfective gastroenteritis and colitis, unspecified (principal); J31.0 Chronic rhinitis

== ENCOUNTER → 2025-02-09 13:27 | Outpatient (BNVA) | payer MEDICARE, OTHER, SELFPAY | PROVIDERS: PCP Internal Medicine; Visit Provider Internal Medicine | DX: Z09 Encounter for follow-up examination after completed treatment for conditions other than malignant neoplasm (principal); K52.9 Noninfective gastroenteritis and colitis, unspecified; J31.0 Chronic rhinitis; C61 Malignant neoplasm of prostate; Z13.30 Encounter for screening examination for mental health and behavioral disorders, unspecified | CPT/HCPCS: 96127; 99212 ==

== ENCOUNTER 2025-02-28 12:44 | Outpatient (AMB) | payer MEDICARE, OTHER, SELFPAY ==
--- NOTE | 2025-02-28 12:55 | A.OFFVIS_ITS ---
Vital Signs 02/28/25 12:57 Height 5 ft 8 in Weight 145 lb 15.136 oz BMI 22.2 BP 120/66 Blood Pressure Location Lt brachial Position Sitting Pulse 106 H Pulse Source Pulse Oximeter Intake Visit Reasons: fu per Dr. Newsome- has PT at 1:30 Intake Note: f/up- per Skyla Newsome Coal Digger Required: No Accompanied by: Self / Same As Patient Allergies amoxicillin (From Augmentin) Allergy (Severe, Verified 02/09/25 11:44) tongue/facial swelling clavulanic acid (From Augmentin) Allergy (Severe, Verified 02/09/25 11:44) tongue/facial swelling Medication List - Last Reconciled 02/28/25 by Gideon Weir NP aspirin 81 mg PO DAILY atorvastatin 80 mg PO BEDTIME calcium 600 mg PO DAILY carvedilol 6.25 mg PO BID Held on 02/09/25. Instructions: Doctor's Order leuprolide acetate (6 month) (Lupron Depot) 45 mg IM [id number] loperamide (Imodium A-D) 2 mg PO Q4H PRN losartan 25 mg PO DAILY meclizine 25 mg PO DAILY PRN omeprazole 20 mg PO DAILY ondansetron 8 mg PO Q8H PRN prednisone 10 mg PO DIRECTED ticagrelor 90 mg PO BID 90 days HPI Comments Details: This is an 85-year-old male patient coming in to discuss medications. Patient with history of cardiomyopathy, STEMI, coronary artery disease status post PCI to LAD in November of 2024. Patient's daughter and cardiac rehab pointed out to our office that patient has been off all of his medications and is only currently taking aspirin. Upon indent discussion, patient states that he started developing some blurry vision since starting the Brilinta and not knowing if this was the medication or other medications, he stopped all of them except the aspirin. No reported signs of bleeding. Patient states that since being off the medications his vision has gotten back to normal. Patient also notes that his heart problems all started with being on chemo medications which he is no longer taking right now. Patient is currently going to cardiac rehab since November. Today, patient reports feeling well overall and denies any cardiac symptoms of exertional chest pain, shortness of breath, palpitations, dizziness, orthopnea, PND, leg edema, presyncope or syncope. [facility] Medical History Prostate cancer metastatic to bone Hemorrhoids Elevated PSA Surgical History Hx of prostate biopsy Family History Mother No problems noted. Father No problems noted. 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 Cognitive needs: No Hearing needs: No (pt throw them away, he's not using them ) Vision needs: Yes (rx ) Review of Systems Const Denies chills, Denies fatigue, Denies fever(s), Denies frequent falls, Denies weakness, Denies weight gain and Denies weight loss ENT Denies dizziness Card Denies chest pain, Denies leg edema, Denies lightheadedness, Denies palpitations, Denies dyspnea and Denies dyspnea on exertion Resp Denies cough, Denies dyspnea and Denies dyspnea on exertion GI Denies hematochezia Musc Denies abnormal gait, Denies muscle weakness, Denies numbness, Denies radiating pain into limb and Denies tingling Neuro Denies abnormal gait, Denies dizziness, Denies frequent falls, Denies numbness, Denies tingling and Denies weakness Endo Denies fatigue and Denies palpitations Physical Exam Vital Signs: Last Vital Signs Pulse 106 H 02/28/25 12:57 BP 120/66 02/28/25 12:57 BMI result Body Mass Index 22.2 Const General: cooperative, healthy appearing, comfortable and no acute distress Orientation/consciousness: patient oriented x3 HEENT Head: Yes normal to inspection Neck Neck: Yes normal visual inspection, Yes trachea midline and Yes supple Chest Chest palpation & inspection: normal inspection of the chest Resp Effort & Inspection: normal respiratory effort Auscultation: clear to auscultation bilaterally, no crackles, no rales, no rhonchi and no wheezes Cardio Jugular venous distension: no JVD Palpation: normal PMI Rate: regular rate Rhythm: regular rhythm Heart sounds: S1 normal heart sound present, S2 normal heart sound present, no click, no gallops, no murmurs and no rubs Peripheral pulses: Peripheral pulses 2+ throughout GI Inspection: Yes normal to inspection Palpation (GI): Soft to palpation Auscultation: normal bowel sounds Skin General skin exam: no rashes or lesions noted Neuro General: patient oriented x3 Extrem General: Yes normal to inspection, No no pedal edema and No calf tenderness Psych Appearance: grossly normal Mental Status: mental status grossly normal Speech and movement: Normal speech and movement present Assessment & Plan Assessment & Plan (1) CAD (coronary artery disease): Code(s): I25.10 - Atherosclerotic heart disease of [place] coronary artery without angina pectoris Category: Medical Plan: History of anterior STEMI who underwent cardiac catheterization on 12/03/2024 that revealed mid LAD with 99% stenosis, left main with less than 30% stenosis, left circumflex with 40% stenosis, and RCA mild irregularities. Patient had successful PCI placement to the mid LAD. Patient was started on Brilinta. Patient states that he had some blurry vision on the medication and therefore stopped this and the rest of his medications. Discussed in detail about the risks involved with not being on appropriate medications status post stent placement. Patient verbalizes understanding. We will stop Brilinta and switch patient over to Plavix therapy with a loading dose of 600 mg 1 time followed by 75 mg daily. Patient to continue with Plavix uninterrupted for at least 1 year and to continue with lifelong therapy of aspirin. No reported signs of bleeding. Advised patient to contact the office before stopping medications in case of questionable side-effects. Patient will resume his high-dose statin with an LDL goal less than 70. Patient states that his blood pressures were on the low side systolic being in the 90s. Today his blood pressure is stable. We will restart on losartan therapy. Patient is hesitant on starting the carvedilol. We decided to hold onto the carvedilol for now. We will bring patient back in office in 1 month time. Advised monitoring blood pressures at home and maintaining a log of it. Patient understands that if his heart rate and blood pressure is uncontrolled then he will need to start on low-dose carvedilol therapy. Emphasized on the importance of staying compliant with all his medications. Patient verbalizes understanding. Continue cardiac rehab. (2) S/P cardiac cath: Code(s): Z98.890 - Other specified postprocedural states Category: Surgical Plan: As above. (3) Cardiomyopathy: Code(s): I42.9 - Cardiomyopathy, unspecified Category: Medical Plan: 02/06/2025-echo study showed a mildly improved LV systolic function with an ejection fraction at 43%, prior EF between 30-35%. With akinetic apex, apical inferior, apical septal, and mid anteroseptal segments. Clinically stable and euvolemic. Continue current regimen. Discussed in detail about heart failure symptoms. Advised low-salt diet. (4) Nonsustained ventricular tachycardia: Code(s): I47.29 - Other ventricular tachycardia Category: Medical Plan: 07/27/2024-cardiac event monitor showed an episode of 5 beat NSVT. Patient's average heart rate in the 80s. Patient states that his heart rate is better now but can run higher due to family history of sinus tachycardia. Understands that we may need to goal on low-dose carvedilol therapy at the next visit. Advised heart healthy diet, regular exercise, emphasized strongly on med compliance and aggressive management of vascular risk factors. Follow up in 1 month. In the interim, patient will call the office with any concerns or change in symptoms. This note was generated using voice recognition software. While every effort has been made to ensure accuracy and proper driver's education instructor, there may be occasional errors that could affect the content or meaning of the described symptoms. Medications: New clopidogrel 75 mg PO DAILY 90 tabs 3RF clopidogrel Loading dose of 600mg one time followed by 75mg daily 75 mg PO DAILY 90 tabs 3RF Refilled aspirin 81 mg PO DAILY 90 tabs 3RF Discontinued ticagrelor Discontinued Reason: Doctor's Order 90 mg PO BID 90 days 180 tabs 3RF Coding Level of Care Code Est Pt Level 4 (84271) Complex EM visit Add On G2211 Diagnoses CAD (coronary artery disease) I25.10 S/P cardiac cath Z98.890 Cardiomyopathy I42.9 Nonsustained ventricular tachycardia I47.29 Time Spent (min) 34 Comment Time spent in reviewing the chart, test results, assessment, counseling and documentation.
[2025-02-28 12:57] VITALS: BP 120/66; PULSE 106; BMI 22.2
--- OUTSIDE RECORDS SUMMARY | 2025-02-28 13:16 | XMS_ITS | Encounter Summary ---
Author Organization [facility] Address [address] [place] [address] Phone Care Team Providers Care Tribal Delegate Name Role Phone Kashif Ly MD Primary Care Provider Self-Referred, Patient Unavailable Unavailab Chinmay Bear [facility] Unavailable Carlos Mi MD Unavailable Ean Klein MD Unavailable [phone] Encounter Details Date Type Department Care Team (Late st Contact Info) Description 09/03/2023 Ancillary Orders Outside Imaging Chinmay Rg [facility] [address] [place] [address] [email or web address] U Social History Tobacco Use Types Packs/Day [...] Interpretation) (08/19/2023 12:05 AM EST) Other Narrative JESSICAVONSUSHANTRochelle - 09/03/2023 12:45 PM EST This study is for PACS storage only and not for interpretation. us Chinmay Calderón IMG OUTSIDE IMAGING W/OUT IN TERPRETATION Final Result [facility] documented in this encounter Visit Diagnoses Not on filedocumented in this encounter Care Teams Tribal Delegate Relationship Specialty Start Date End Date Kashif Ly MD [address] [place] [address] [place] [address] PCP - General Internal Medicine 09/02/23 Self-Referred, Patient 09/02/23 Chinmay Rg [facility] [place] [address] [email or web address] Medical Oncology 09/02/23 Carlos Mi MD [address] [place] [address] Urology 09/03/23 Ean Klein MD [address] [place] [id number] 09/03/23 documented as of this encounter Additional Source Comments The information contained in this document represents components of the legal health record. It is not the complete legal health record.[facility]
== END 2025-02-28 13:26 | disposition home or self-care (01) ==
LOC: HO.HCS 12:45
PROVIDERS: PCP Internal Medicine
DX: I25.10 Atherosclerotic heart disease of native coronary artery without angina pectoris (principal); Z98.890 Other specified postprocedural states; I42.9 Cardiomyopathy, unspecified; I47.29 Other ventricular tachycardia
CPT/HCPCS: 99214; G2211

== ENCOUNTER → 2025-02-28 12:44 | Outpatient (BNVA) | payer MEDICARE, OTHER, SELFPAY | PROVIDERS: PCP Internal Medicine | DX: I25.10 Atherosclerotic heart disease of native coronary artery without angina pectoris (principal); I42.9 Cardiomyopathy, unspecified; I47.29 Other ventricular tachycardia; Z98.890 Other specified postprocedural states | CPT/HCPCS: 99212 ==

== ENCOUNTER 2025-03-21 14:51 | Outpatient (AMB) | payer MEDICARE, OTHER, SELFPAY ==
--- NOTE | 2025-03-21 15:06 | MHC.OFFWIV ---
Intake Vital Signs 03/21/25 15:07 Height 5 ft 8 in Weight 149 lb BMI 22.7 BP 114/60 Blood Pressure Location Lt brachial Position Sitting Pulse 106 H Pulse Source Pulse Oximeter Temp 98.2 F Temp Source Oral Pulse Oximetry (%) 97 Oxygen Delivery Method Room Air Intake Visit Reasons: EP-dressing removal Intake Note: pt presents with open wound on right arm after falling in garage 3 days ago- bandage had remained in place x3 days Patient Tobacco Use Status: Never used Tobacco Allergies amoxicillin (From Augmentin) Allergy (Severe, Verified 03/22/25 10:48) tongue/facial swelling clavulanic acid (From Augmentin) Allergy (Severe, Verified 03/22/25 10:48) tongue/facial swelling Do you need a note to return to daycare/school/sports/work: No HPI HPI Comments History of Present Illness Details History of Present Illness - The patient is an 85-year-old male presenting with a skin abrasion on the elbow. - The patient experienced a fall on Wednesday, resulting in a skin abrasion on the elbow. - The patient reports no pain or bleeding from the abrasion, although improper bandaging by his son caused discomfort. - The patient has a history of chemotherapy treatment, which may contribute to a compromised immune system. - He has been keeping the area clean. - Has a hard time with a bandage as it is located in a bad spot on the right arm. - He denies fever, chills, redness, discharge, or bleeding. - Has bruising on his arm. - He denies numbness and tingling. Physical Exam General: Cooperative, healthy appearing, comfortable, no acute distress and well developed Orientation: Patient oriented x3 Respiratory: Normal respiratory effort and able to speak in complete sentences. Clear to auscultation bilaterally Cardiovascular: Regular rate and rhythm. Normal S1 and S2. Pulse are 2+ Skin: No rashes or lesions noted. Large skin tear noted on the upper arm and forearm at the elbow with eccyhmosis noted. Dried blood, no active bleeding. Neuro: Sensation intact Extremities: Normal to inspection. FROM of the right elbow and wrist. No TTP of the upper and forearm. Hand electrician apprentice intact. Patient was informed and verbally consented to the use of an ambient scribe for clinic note documentation during this visit. [facility] Medical History Prostate cancer metastatic to bone Hemorrhoids Elevated PSA Surgical History Hx of prostate biopsy Family History Mother No problems noted. Father No problems noted. 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 Cognitive needs: No Hearing needs: No (pt throw them away, he's not using them ) Vision needs: Yes (rx ) Review of Systems Const All systems reviewed & are unremarkable except as noted in HPI and below Physical Exam Vital Signs: Last Vital Signs Temp 98.2 F 03/21/25 15:07 Pulse 106 H 03/21/25 15:07 BP 114/60 03/21/25 15:07 Pulse Ox 97 03/21/25 15:07 Oxygen Delivery Method Room Air 03/21/25 15:07 BMI result Body Mass Index 22.7 Assessment & Plan Assessment & Plan (1) Skin tear of forearm without complication: Code(s): S51.819A - Laceration without foreign body of unspecified forearm, initial encounter Qualifiers: Encounter type: initial encounter Laterality: right Qualified Code(s): S51.811A - Laceration without foreign body of right forearm, initial encounter Plan Most likely skin tear, open wound Plan - Initiate antibiotic therapy to prevent infection due to compromised immune system from chemotherapy. - Clean and dress the wound, apply antibacterial ointment, and schedule follow-up visits to monitor healing. - tylenol or motrin as needed - keep area clean and dry - follow up with PCP Medications: New doxycycline hyclate 100 mg PO BID 14 tabs 0RF Coding Level of Care Code Est Pt Level 3 (13439) Diagnoses Skin tear of right forearm without complication, initial encounter S51.811A Encounter type: initial encounter Laterality: right
[2025-03-21 15:07] VITALS: BP 114/60; PULSE 106; TEMP 36.8; O2SAT 97; BMI 22.7
--- OUTSIDE RECORDS SUMMARY | 2025-03-21 16:15 | XMS_ITS | Clinical Summary ---
Author Organization [facility] Address [address] [place] [address] Phone Care Team Providers Care Staff Certified Nurse Midwife Name Role Phone Kashif Ly MD Primary Care Provider Self-Referred, Patient Unavailable Unavailab Chinmay Bear [facility] Unavailable Carlos Mi MD Unavailable Ean Klein MD Unavailable Allergies No known active allergies Medications bicalutamide (CASODEX) 50 MG tablet Take 50 mg by mouth daily. Active Active Problems No known active problems Social History Tobacco Use Types Packs/Day Years [...] your housing situation today? I have ozzie virk 09/03/2023 How many times have you move [...] on file Sexual Orientation Not on file Last Filed Vital Signs Vital Sign Reading Time Taken Comments Blood Pressure 175/95 09/03/2023 12:39 PM EST Pulse 104 09/03/2023 12:39 PM EST Temperature 36.3 C (97.4 F) 09/03/2023 12:39 PM EST Respiratory Rate 16 09/03/2023 12:39 PM EST Oxygen Saturation 97% 09/03/2023 12:39 PM EST Inhaled Oxygen Concentration - - Weight - - Height - - Body Mass Index - - Plan of Treatment Health Maintenance Due Date Last Done Comments Adult Td,Tdap Booster 1938 DEPRESSION SCREENING 1950 PNEUMOCOCCAL VACCINES (50+ years) (1 of 1 - PCV) 02/25/1988 ZOSTER VACCINES (1 of 2) 02/25/1988 RSV VACCINE (1 - 1-dose 75+ series) 2013 COVID-19 VACCINE ( - season) 2024 05/08/2023, 08/01/2022, 06/24/2021, Additional history exists HEPATITIS A VACCINES Aged Out No long er eligible based on patient's age to complete this topic HIB VACCINES Aged Out No longer eligi ble based on patient's age to complete this topic MENINGOCOCCAL VACCINES (ACWY) Aged Out No longer eligible based on patient's age to complete this topic MENINGOCOCCAL VACCINES (B) Aged Out N o longer eligible based on patient's age to complete this topic Medical Devices Not on file Insurance MEDICARE PART A & B [employer] MEDICARE SUPPLEMENT MEDICARE PART A & B [employer] MEDICARE SUPPLEMENT MEDICARE PART A & B Member Subscriber Plan / Payer ( fective 2003-) Name:Harshad Salguero Member ID:[id number] Relation to Subscriber:Self Name:Harshad Salguero Subscriber ID:[id number] Payer ID:[id number] Group ID:Not on file Type:Medicare Address: [employer] [address] [place] [address] [employer] MEDICARE SUPPLEMENT MEDICARE PART A & B [employer] MEDICARE SUPPLEMENT MEDICARE PART A & B [employer] MEDICARE SUPPLEMENT MEDICARE PART A & B [employer] MEDICARE SUPPLEMENT Care Teams Staff Certified Nurse Midwife Relationship Specialty Start Date End Date Kashif Ly MD [address] [place] [address] [place] [address] [place] [address] PCP - General Internal Medicine 09/02/23 Self-Referred, Patient 09/02/23 Chinmay Rg [facility] [address] [place] [address] [email or web address] Medical Oncology 09/02/23 Carlos Mi MD [address] [place] [address] Urology 09/03/23 Ean Klein MD [address] [place] [address] 09/03/23 Additional Source Comments The information contained in this document represents components of the legal health record. It is not the complete legal health record.[facility]
--- OUTSIDE RECORDS SUMMARY | 2025-03-21 16:15 | XMS_ITS | Encounter Summary ---
Author Organization [facility] Address [address] [place] [address] Phone Care Team Providers Care Vegetable Worker Name Role Phone Kashif Ly MD Primary Care Provider Self-Referred, Patient Unavailable Unavailab Chinmay Bear [facility] Unavailable [phone] Carlos Mi MD Unavailable Ean Klein MD Unavailable [phone] Encounter Details Date Type Department Care Team (Late st Contact Info) Description 09/03/2023 Ancillary Orders Outside Imaging Chinmay Rg [facility] [address] [place] [address] [email or web address] U Social History Tobacco Use Types Packs/Day [...] storage only and not for interpretation. us Chinamy Calderón IMG OUTSIDE IMAGING W/OUT IN TERPRETATION Final Result PERCIPIO_BWH documented in this encounter Visit Diagnoses Not on filedocumented in this encounter Care Teams Vegetable Worker Relationship Specialty Start Date End Date Kashif Ly MD [address] [place] [address] [place] [address] PCP - General Internal Medicine 09/02/23 Self-Referred, Patient 09/02/23 Chinmay Rg [facility] [place] [address] [email or web address] Medical Oncology 09/02/23 Carlos Mi MD [address] [place] [address] Urology 09/03/23 Ean Klein MD [address] [place] [address] 09/03/23 documented as of this encounter Additional Source Comments The information contained in this document represents components of the legal health record. It is not the complete legal health record.[facility]
--- OUTSIDE RECORDS SUMMARY | 2025-03-21 16:15 | XMS_ITS | Encounter Summary ---
Author Organization [facility] Address [address] [place] [address] Phone Care Team Providers Care Application Developer Manager Name Role Phone Kashif Ly MD Primary Care Provider Self-Referred, Patient Unavailable Unavailab Chinmay Bear [facility] Unavailable [phone] Carlos Mi MD Unavailable Ean Klein MD Unavailable [phone] Encounter Details Date Type Department Care Team (Late st Contact Info) Description 09/03/2023 Ancillary Orders Outside Imaging Chinmay Rg [facility] [address] [place] [address] [email or web address]. U Social History Tobacco Use Types Packs/Day [...] documented as of this encounter Results * US Pelvis Outside (No Interpretation) (08/23/2023 12:00 AM EST) Other Narrative YUERhiannaSUSHANT - 09/03/2023 12:45 PM EST This study is for PACS storage only and not for interpretation. Chinmay Calderón IMG OUTSIDE IMAGING W/OUT IN TERPRETATION Final Result PERCIPIO_BWH documented in this encounter Visit Diagnoses Not on filedocumented in this encounter Care Teams Application Developer Manager Relationship Specialty Start Date End Date Kashif Ly MD [address] [place] [address] [place] [address] PCP - General Internal Medicine 09/02/23 Self-Referred, Patient 09/02/23 Chinmay Rg [facility] [place] [address] [email or web address] Medical Oncology 09/02/23 Carlos Mi MD [address] [place] [address] Urology 09/03/23 Ean Kelin MD [address] [place] [phone] 09/03/23 documented as of this encounter Additional Source Comments The information contained in this document represents components of the legal health record. It is not the complete legal health record.[facility]
--- OUTSIDE RECORDS SUMMARY | 2025-03-21 16:15 | XMS_ITS | Encounter Summary ---
Author Organization [facility] Address [address] [place] [address] Phone Care Team Providers Care Journeyman Lineman Name Role Phone Kashif Ly MD Primary Care Provider Self-Referred, Patient Unavailable Unavailab Chinmay Bear [facility] Unavailable [phone] Carlos Mi MD Unavailable Ean Klein MD Unavailable Encounter Details Date Type Department Care Team (Late st Contact Info) Description 09/03/2023 Ancillary Orders Outside Imaging Chinmay Rg [facility] [address] [place] [address] [email or web address] U Social History Tobacco Use Types Packs/Day [...] documented as of this encounter Results * NM Bone Outside (No Interpretation) (08/19/2023 12:00 AM EST) Other Narrative JESSICAVONSUSHANTRochelle - 09/03/2023 12:40 PM EST This study is for PACS storage only and not for interpretation. us Chinmay Calderón IMG OUTSIDE IMAGING W/OUT IN TERPRETATION Final Result PERCIPIO_BWH documented in this encounter Visit Diagnoses Not on filedocumented in this encounter Care Teams Journeyman Lineman Relationship Specialty Start Date End Date Kashif Ly MD [address] [place] [address] [place] [address] PCP - General Internal Medicine 09/02/23 Self-Referred, Patient 09/02/23 Chinmay Rg [facility] [place] [address] [email or web address] Medical Oncology 09/02/23 Carlos Mi MD [address] [place] [address] Urology 09/03/23 Ean Klein MD [address] [place] [address] 09/03/23 documented as of this encounter Additional Source Comments The information contained in this document represents components of the legal health record. It is not the complete legal health record.[facility]
== END 2025-03-21 15:59 | disposition home or self-care (01) ==
PROVIDERS: PCP Internal Medicine; Visit Provider Physician Assistant Medical
DX: S51.811A Laceration without foreign body of right forearm, initial encounter (principal)

== ENCOUNTER → 2025-03-21 14:51 | Outpatient (BNVA) | payer MEDICARE, OTHER, SELFPAY | PROVIDERS: PCP Internal Medicine; Visit Provider Physician Assistant Medical | DX: S51.811A Laceration without foreign body of right forearm, initial encounter (principal) | CPT/HCPCS: 99212 ==

== ENCOUNTER 2025-03-22 10:39 | Outpatient (AMB) | payer MEDICARE, OTHER, SELFPAY ==
[2025-03-22 10:45] VITALS: BP 122/62; PULSE 103; TEMP 36.6; O2SAT 97; BMI 22.7
--- NOTE | 2025-03-22 10:45 | MHC.OFFWIV ---
Intake Vital Signs 03/22/25 10:45 Height 5 ft 8 in Weight 149 lb BMI 22.7 BP 122/62 Blood Pressure Location Lt brachial Position Sitting Pulse 103 H Pulse Source Pulse Oximeter Temp 97.9 F Temp Source Oral Pulse Oximetry (%) 97 Oxygen Delivery Method Room Air Intake Visit Reasons: EP Wound check? Patient Tobacco Use Status: Never used Tobacco Allergies amoxicillin (From Augmentin) Allergy (Severe, Verified 03/22/25 10:48) tongue/facial swelling clavulanic acid (From Augmentin) Allergy (Severe, Verified 03/22/25 10:48) tongue/facial swelling Do you need a note to return to daycare/school/sports/work: No HPI HPI Comments History of Present Illness Details History of Present Illness - The patient is an 85-year-old male presenting for a wound check for a skin tear which he sustained from a fall from . - The fall occurred 5 days ago when the patient was sitting on a plastic pail in his garage that slipped, causing him to fall with no support to grab onto. He fell on his right side and tore the skin on his right arm. - The patient started taking the doxycycline he was prescribed, his first pill was this morning. - He was told to follow up on Wednesday and Wednesday but he prefers to follow up daily and make sure it is okay, he lives alone and it would be difficult for him to change the bandages. His son will be with him this weekend and able to change his bandages Wed and Mon. Physical Exam General: Cooperative, healthy appearing, comfortable, no acute distress and well developed Orientation: Patient oriented x3 Limitations: none Head: Normal to inspection Ears: Hearing grossly normal bilaterally Nose: Normal External nose present Face and sinus: Normal facial exam Eyes: Appearance normal, both eyes and all related structures Neck: Normal visual inspection and Yes full ROM Respiratory: Normal respiratory effort and able to speak in complete sentences. Skin: 2 skin tears on RUE, no warmth, no drainage, no TTP, full ROM RUE Neuro: Patient oriented x3 Extremities: Normal to inspection [facility] Medical History Prostate cancer metastatic to bone Hemorrhoids Elevated PSA Surgical History Hx of prostate biopsy Family History Mother No problems noted. Father No problems noted. 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 Cognitive needs: No Hearing needs: No (pt throw them away, he's not using them ) Vision needs: Yes (rx ) Review of Systems Const All systems reviewed & are unremarkable except as noted in HPI and below Physical Exam Vital Signs: Last Vital Signs Temp 97.9 F 03/22/25 10:45 Pulse 103 H 03/22/25 10:45 BP 122/62 03/22/25 10:45 Pulse Ox 97 03/22/25 10:45 Oxygen Delivery Method Room Air 03/22/25 10:45 BMI result Body Mass Index 22.7 Assessment & Plan Assessment & Plan (1) Skin tear of right upper extremity: Code(s): S41.111A - Laceration without foreign body of right upper arm, initial encounter Plan: Patient was informed and verbally consented to the use of an ambient scribe for clinic note documentation during this visit. Skin tear - Pt HR appears at baseline and other VSS, no signs of infection noted on exam, changed bandages for the patient. - Monitor wound for infection and ensure proper healing, come back if you develop a fever or if you have warmth or purulent drainage from the wound or pain develops. - Follow-up advised if complications arise. You can come for a daily wound check but it is not necessary. - Continue Doxycyline for PPX, remember to avoid sun exposure and dairy products while on doxycycline. - Gave pt extra supplies to change dressing, if needed - Can remove bandages at night or when at home. Coding Level of Care Code Est Pt Level 3 (95550) Diagnoses Skin tear of right upper extremity S41.111A
--- OUTSIDE RECORDS SUMMARY | 2025-03-22 12:03 | XMS_ITS | Encounter Summary ---
Author Organization [facility] Address [address] [place] [address] Phone Care Team Providers Care Back Roll Lathe Operator Name Role Phone Kashif yL MD Primary Care Provider Self-Referred, Patient Unavailable Unavailab Chinmay Bear [facility] Unavailable Carlos Mi MD Unavailable Ean Klein MD Unavailable Encounter Details Date Type Department Care Team (Late st Contact Info) Description 09/03/2023 Ancillary Orders Outside Imaging Chinmay Rg [facility] [address] [place] [address] [email or web address] U Social History Tobacco Use Types Packs/Day [...] on filedocumented in this encounter Care Teams Back Roll Lathe Operator Relationship Specialty Start Date End Date Kashif Ly MD [address] [place] [address] [place] [address] PCP - General Internal Medicine 09/02/23 Self-Referred, Patient 09/02/23 Chinmay Rg [facility] [place] [address] [email or web address] Medical Oncology 09/02/23 Carlos Mi MD [address] [place] [address] Urology 09/03/23 Ean Klein MD [address] [place] [address] 09/03/23 documented as of this encounter Additional Source Comments The information contained in this document represents components of the legal health record. It is not the complete legal health record.[facility]
--- OUTSIDE RECORDS SUMMARY | 2025-03-22 12:03 | XMS_ITS | Clinical Summary ---
Author Organization [facility] Address [address] [place] [address] Phone Care Team Providers Care Oven Drier Tender Name Role Phone Kashif Ly MD Primary Care Provider Self-Referred, Patient Unavailable Unavailab Chinmay Bear [facility] Unavailable Carlos Mi MD Unavailable Ean [...] file Insurance MEDICARE PART A & B [employer] MEDICARE SUPPLEMENT MEDICARE PART A & B [employer] MEDICARE SUPPLEMENT MEDICARE PART A & B [employer] MEDICARE SUPPLEMENT MEDICARE PART A & B [employer] MEDICARE SUPPLEMENT MEDICARE PART A & B [employer] MEDICARE SUPPLEMENT MEDICARE PART A & B [employer] MEDICARE SUPPLEMENT Care Teams Oven Drier Tender Relationship Specialty Start Date End Date Kashif Ly MD [address] [place] [address] [place] [address] [place] [address] PCP - General Internal Medicine 09/02/23 Self-Referred, Patient 09/02/23 Chinmay Rg [facility] [address] [place] [address] [email or web address] Medical Oncology 09/02/23 Carlos Mi MD [address] [place] [address] Urology 09/03/23 Ean Klein MD [address] [place] [address] 09/03/23 Additional Source Comments The information contained in this document represents components of the legal health record. It is not the complete legal health record.[facility]
--- OUTSIDE RECORDS SUMMARY | 2025-03-22 12:03 | XMS_ITS | Encounter Summary ---
Author Organization [facility] Address [address] [place] [address] Phone Care Team Providers Care Reagent Tender Name Role Phone Kashif Ly MD Primary Care Provider Self-Referred, Patient Unavailable Unavailab Chinmay Bear [facility] Unavailable [phone] Carlos Mi MD Unavailable Ean Klein MD Unavailable Encounter Details Date Type Department Care Team (Late st Contact Info) Description 09/03/2023 Ancillary Orders Outside Imaging Chinmay Rg [facility] [address] [place] [address] [email or web address] U Social History Tobacco Use Types Packs/Day [...] on filedocumented in this encounter Care Teams Reagent Tender Relationship Specialty Start Date End Date Kashif Ly MD [address] [place] [address] [place] [address] PCP - General Internal Medicine 09/02/23 Self-Referred, Patient 09/02/23 Chinmay Rg [facility] [place] [address] [email or web address] Medical Oncology 09/02/23 Carlos Mi MD [address] [place] [address] Urology 09/03/23 Ean Klein MD [address] [place] [address] 09/03/23 documented as of this encounter Additional Source Comments The information contained in this document represents components of the legal health record. It is not the complete legal health record.[facility]
--- OUTSIDE RECORDS SUMMARY | 2025-03-22 12:03 | XMS_ITS | Encounter Summary ---
Author Organization [facility] Address [address] [place] [address] Phone Care Team Providers Care Warm In Worker Name Role Phone Kashif Ly MD Primary Care Provider Self-Referred, Patient Unavailable Unavailab Chinmay Bear [facility] Unavailable [phone] Carlos Mi MD Unavailable Ean Klein MD Unavailable Encounter Details Date Type Department Care Team (Late st Contact Info) Description 09/03/2023 Ancillary Orders Outside Imaging Chinmay Rg [facility] [address] [place] [address] [email or web address] U Social History Tobacco Use Types Packs/Day [...] on filedocumented in this encounter Care Teams Warm In Worker Relationship Specialty Start Date End Date Kashif Ly MD [address] [place] [address] [place] [address] PCP - General Internal Medicine 09/02/23 Self-Referred, Patient 09/02/23 Chinmay Rg [facility] [place] [address] [email or web address] Medical Oncology 09/02/23 Carlos Mi MD [address] [place] [address] Urology 09/03/23 Ean Klein MD [address] [place] [phone] 09/03/23 documented as of this encounter Additional Source Comments The information contained in this document represents components of the legal health record. It is not the complete legal health record.[facility]
== END 2025-03-22 11:30 | disposition home or self-care (01) ==
PROVIDERS: PCP Internal Medicine; Visit Provider Physician Assistant
DX: S41.111A Laceration without foreign body of right upper arm, initial encounter (principal)

== ENCOUNTER → 2025-03-22 10:39 | Outpatient (BNVA) | payer MEDICARE, OTHER, SELFPAY | PROVIDERS: PCP Internal Medicine; Visit Provider Physician Assistant | DX: S41.111A Laceration without foreign body of right upper arm, initial encounter (principal) | CPT/HCPCS: 99212 ==

== ENCOUNTER 2025-03-23 09:59 | Outpatient (AMB) | payer MEDICARE, OTHER, SELFPAY ==
--- OUTSIDE RECORDS SUMMARY | 2025-03-23 10:44 | XMS_ITS | Encounter Summary ---
Author Organization [facility] Address [address] [place] [address] Phone Care Team Providers Care Pearl Fisherman Name Role Phone Kashif Ly MD Primary Care Provider Self-Referred, Patient Unavailable Unavailab Chinmay Bear [facility] Unavailable Carlos Mi MD Unavailable [phone] Ean Klein MD Unavailable Encounter Details Date Type Department Care Team (Late st Contact Info) Description 09/03/2023 Ancillary Orders Outside Imaging Chinmay Rg [facility] [address] [place] [address] [email or web address] U Social History Tobacco Use Types Packs/Day [...] on filedocumented in this encounter Care Teams Pearl Fisherman Relationship Specialty Start Date End Date Kashif Ly MD [address] [place] [address] [place] [address] PCP - General Internal Medicine 09/02/23 Self-Referred, Patient 09/02/23 Chinmay Rg [facility] [place] [address] [email or web address] Medical Oncology 09/02/23 Carlos Mi MD [address] [place] [address] Urology 09/03/23 Ean Klein MD [address] [place] [address] 09/03/23 documented as of this encounter Additional Source Comments The information contained in this document represents components of the legal health record. It is not the complete legal health record.[facility]
--- OUTSIDE RECORDS SUMMARY | 2025-03-23 10:44 | XMS_ITS | Clinical Summary ---
Author Organization [facility] Address [address] [place] [address] Phone Care Team Providers Care Electrophonic Engineer Name Role Phone Kashif Ly MD Primary Care Provider Self-Referred, Patient Unavailable Unavailab Chinmay Bear [facility] Unavailable [phone] Carlos Mi MD Unavailable Ean Klein MD Unavailable [phone] Allergies No known active allergies Medications bicalutamide [...] file Insurance MEDICARE PART A & B [employer] MEDICARE SUPPLEMENT MEDICARE PART A & B [employer] MEDICARE SUPPLEMENT MEDICARE PART A & B [employer] MEDICARE SUPPLEMENT MEDICARE PART A & B [employer] MEDICARE SUPPLEMENT MEDICARE PART A & B [employer] MEDICARE SUPPLEMENT MEDICARE PART A & B [employer]TENS[employer] MEDICARE SUPPLEMENT Care Teams Electrophonic Engineer Relationship Specialty Start Date End Date Kashif Ly MD [address] [place] [address] [place] [address] [place] [address] PCP - General Internal Medicine 09/02/23 Self-Referred, Patient 09/02/[address] [facility] [address] [place] [address] [email or web address] 09/02/23 Carlos Mi MD [address] [place] [address] Urology 09/03/23 Ean Klein MD [address] [place] [address] 09/03/23 Additional Source Comments The information contained in this document represents components of the legal health record. It is not the complete legal health record.[facility]
--- OUTSIDE RECORDS SUMMARY | 2025-03-23 10:44 | XMS_ITS | Encounter Summary ---
Author Organization [facility] Address [address] [place] [address] Phone Care Team Providers Care Sleeve Setter Name Role Phone Kashif Ly MD Primary Care Provider Self-Referred, Patient Unavailable Unavailab Chinmay Bear [facility] Unavailable Carlos Mi MD Unavailable Ean Klein MD Unavailable Encounter Details Date Type Department Care Team (Late st Contact Info) Description 09/03/2023 Ancillary Orders Outside Imaging Chinmay Rg [facility] [address] [place] [address] [email or web address] U Social History Tobacco Use Types Packs/Day [...] on filedocumented in this encounter Care Teams Sleeve Setter Relationship Specialty Start Date End Date Kashif Ly MD [address] [place] [address] [place] [address] PCP - General Internal Medicine 09/02/23 Self-Referred, Patient 09/02/23 Chinmay Rg [facility] [place] [address] [email or web address] Medical Oncology 09/02/23 Carlos Mi MD [address] [place] [address] Urology 09/03/23 Ean Klein MD [address] [place] [address] 09/03/23 documented as of this encounter Additional Source Comments The information contained in this document represents components of the legal health record. It is not the complete legal health record.[facility]
--- OUTSIDE RECORDS SUMMARY | 2025-03-23 10:44 | XMS_ITS | Encounter Summary ---
Author Organization [facility] Address [address] [place] [address] Phone Care Team Providers Care Weir Fisher Name Role Phone Kashif Ly MD Primary Care Provider Self-Referred, Patient Unavailable Unavailab Chinmay Bear [facility] Unavailable Carlos Mi MD Unavailable Ean Klein MD Unavailable Encounter Details Date Type Department Care Team (Late st Contact Info) Description 09/03/2023 Ancillary Orders Outside Imaging Chinmay Rg [facility] [address] [place] [address] [email or web address] U Social History Tobacco Use Types Packs/Day [...] on filedocumented in this encounter Care Teams Weir Fisher Relationship Specialty Start Date End Date Kashif Ly MD [address] [place] [address] [place] [address] PCP - General Internal Medicine 09/02/23 Self-Referred, Patient 09/02/23 Chinmay Rg [facility] [place] [address] [email or web address] Medical Oncology 09/02/23 Carlos Mi MD [address] [place] [address] Urology 09/03/23 Ean Klein MD [address] [place] [address] 09/03/23 documented as of this encounter Additional Source Comments The information contained in this document represents components of the legal health record. It is not the complete legal health record.[facility]
--- NOTE | 2025-03-23 10:48 | AM.OFFWIN_ITS ---
Intake Vital Signs 03/23/25 10:49 Height 5 ft 8 in Weight 149 lb BMI 22.7 BP 126/60 Blood Pressure Location Lt brachial Position Sitting Pulse 100 Pulse Source Pulse Oximeter Temp 98.5 F Temp Source Oral Pulse Oximetry (%) 96 Oxygen Delivery Method Room Air Intake Visit Reasons: EP Wound re check Patient Tobacco Use Status: Never used Tobacco Allergies amoxicillin (From Augmentin) Allergy (Severe, Verified 03/23/25 10:54) tongue/facial swelling clavulanic acid (From Augmentin) Allergy (Severe, Verified 03/23/25 10:54) tongue/facial swelling Do you need a note to return to daycare/school/sports/work: No HPI HPI Comments History of Present Illness Details History - The patient is an 85-year-old male pre senting for a wound check of skin tear on left elbow, see note from yesterday for details. - Has developed a small collection of fl uid on lateral right elbow - no drainage, no warmth. - The patient has been taking doxycyclin e, which has caused some stomach discomfort. - Preventative care measures discussed i ncluded tetanus prophylaxis, which is available at [facility]. Physical Exam General: Cooperative, healthy appearing, comfortable, no acute distress and well developed Orientation: Patient oriented x3 Limitations: No limitations Head: Normal to inspection Ears: Hearing grossly normal bilaterally Nose: Normal External nose present Face and sinus: Normal facial exam Mouth: normal, moist oral mucosa Eyes: Appearance normal, both eyes and all related structures Neck: Normal visual inspection and Yes full ROM Respiratory: Normal respiratory effort and able to speak in complete sentences. Skin: left lateral elbow with 1.5cm round area of slight fluctuance, likely a hematoma, no warmth, no drainage, no surrounding erythema, distal skin tear approximated, no drainage noted, no warmth. proximal 2cm x 1cm skin tear with no drainage or warmth noted. Neuro: Patient oriented x3 Extremities: Moving all extremities normally, full ROM left elbow and left UE [facility]VI [facility] Medical History Prostate cancer metastatic to bone Hemorrhoids Elevated PSA Surgical History Hx of prostate biopsy Family History Mother No problems noted. Father No problems noted. 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 Cognitive needs: No Hearing needs: No (pt throw them away, he's not using them ) Vision needs: Yes (rx ) Review of Systems Const All systems reviewed & are unremarkable except as noted in HPI and below Physical Exam Vital Signs: Last Vital Signs Temp 98.5 F 03/23/25 10:49 Pulse 100 03/23/25 10:49 BP 126/60 03/23/25 10:49 Pulse Ox 96 03/23/25 10:49 Oxygen Delivery Method Room Air 03/23/25 10:49 BMI result Body Mass Index 22.7 Assessment & Plan Assessment & Plan (1) Skin tear of elbow without complication: Code(s): S51.019A - Laceration without foreign body of unspecified elbow, initial encounter Qualifiers: Encounter type: subsequent encounter Laterality: right Qualified Code(s): S51.011D - Laceration without foreign body of right elbow, subsequent encounter Plan: Patient was informed and verbally consented to the use of an ambient scribe for clinic note documentation during this visit - New area of slight fluctuance is likely a hematoma, very low to no suspicion this is an abcess or infection. - Both skin tears appear to be healing well with no signs of infection. - Changed bandages for patient. - Patient has no one to change his bandage over the weekend so he will come in tomorrow to change his bandage again. - Plan to monitor the hematoma and allow it to resolve naturally. - Recommendation to receive tetanus prophylaxis at [facility] if needed. Coding Level of Care Code Est Pt Level 3 (21913) Diagnoses Skin tear of right elbow without complication, subsequent encounter S51.011D Encounter type: subsequent encounter Laterality: right
[2025-03-23 10:49] VITALS: BP 126/60; PULSE 100; TEMP 36.9; O2SAT 96; BMI 22.7
== END 2025-03-23 11:24 | disposition home or self-care (01) ==
PROVIDERS: PCP Internal Medicine; Visit Provider Physician Assistant
DX: S51.011D Laceration without foreign body of right elbow, subsequent encounter (principal)

== ENCOUNTER → 2025-03-23 09:59 | Outpatient (BNVA) | payer MEDICARE, OTHER, SELFPAY | PROVIDERS: PCP Internal Medicine; Visit Provider Physician Assistant | DX: S51.011D Laceration without foreign body of right elbow, subsequent encounter (principal) | CPT/HCPCS: 99212 ==

== ENCOUNTER 2025-03-28 12:40 | Outpatient (AMB) | payer MEDICARE, OTHER, SELFPAY ==
[2025-03-28 12:47] VITALS: BP 128/72; PULSE 98; BMI 22.9
--- NOTE | 2025-03-28 12:47 | MHC.OFFVIS ---
Vital Signs 03/28/25 12:47 Height 5 ft 8 in Weight 150 lb 5.684 oz BMI 22.9 BP 128/72 Blood Pressure Location Lt brachial Position Sitting Pulse 98 Pulse Source Pulse Oximeter Intake Visit Reasons: 1 mth for med ck Hardness Inspector Required: No Accompanied by: Self / Same As Patient Allergies amoxicillin (From Augmentin) Allergy (Severe, Verified 03/24/25 10:54) tongue/facial swelling clavulanic acid (From Augmentin) Allergy (Severe, Verified 03/24/25 10:54) tongue/facial swelling Medication List - Last Reconciled 03/28/25 by Gideon Weir NP aspirin 81 mg PO DAILY atorvastatin 80 mg PO BEDTIME calcium 600 mg PO DAILY clopidogrel 75 mg PO DAILY doxycycline hyclate 100 mg PO BID leuprolide acetate (6 month) (Lupron Depot) 45 mg IM [id number] loperamide (Imodium A-D) 2 mg PO Q4H PRN losartan 25 mg PO DAILY meclizine 25 mg PO DAILY PRN omeprazole 20 mg PO DAILY ondansetron 8 mg PO Q8H PRN prednisone 10 mg PO DIRECTED HPI Comments Details: This is an 85-year-old male patient coming in for a follow-up visit after resuming his medications. Patient with a history of cardiomyopathy, STEMI, coronary artery disease status post PCI to LAD in November of 2024. Patient had previously stopped all his medications after developing some blurry vision after starting the Brilinta but because he was not sure which medication he has stopped all of them except aspirin. Due to this concern, patient's Brilinta was stopped and was pushed in to Plavix at his last visit. Patient was resumed on all his medications except carvedilol as patient stated this blood pressure has been low on this. Today, patient is reporting that he recently fell and developed a skin tear to his arm and was started on doxycycline by PCP. Patient is otherwise denying any exertional symptoms of chest pain, shortness of breath, palpitations, dizziness, orthopnea, PND, leg edema, presyncope or syncope. Patient is now reporting compliance with all his medications and states that he is still continuing to go to his cardiac rehab. [facility] Medical History Prostate cancer metastatic to bone Hemorrhoids Elevated PSA Surgical History Hx of prostate biopsy Family History Mother No problems noted. Father No problems noted. 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 Cognitive needs: No Hearing needs: No (pt throw them away, he's not using them ) Vision needs: Yes (rx ) Review of Systems Const Denies daytime sleepiness, Denies difficulty sleeping, Denies snoring, Denies stops breathing during sleep and Denies weakness Card Denies chest pain, Denies rapid heart rate, Denies irregular heart rhythm, Denies claudication, Denies leg edema, Denies lightheadedness, Denies palpitations, Denies dyspnea, Denies dyspnea on exertion, Denies orthopnea, Denies paroxysmal nocturnal dyspnea and Denies slow heart rate Resp Denies cough, Denies dyspnea, Denies dyspnea on exertion and Denies snoring GI Reports no additional complaints, Denies hematochezia, Denies change in stool character and Denies dyspepsia Musc Denies abnormal gait, Denies muscle weakness and Denies numbness Neuro Denies abnormal gait, Denies numbness and Denies weakness Endo Denies palpitations Physical Exam Vital Signs: Last Vital Signs Pulse 98 03/28/25 12:47 BP 128/72 03/28/25 12:47 BMI result Body Mass Index 22.9 Const General: cooperative, healthy appearing, comfortable and no acute distress Orientation/consciousness: patient oriented x3 HEENT Head: Yes normal to inspection Neck Neck: Yes normal visual inspection, Yes trachea midline and Yes supple Chest Chest palpation & inspection: normal inspection of the chest Resp Effort & Inspection: normal respiratory effort Auscultation: clear to auscultation bilaterally, no crackles, no rales, no rhonchi and no wheezes Cardio Jugular venous distension: no JVD Palpation: normal PMI Rate: regular rate Rhythm: regular rhythm Heart sounds: S1 normal heart sound present, S2 normal heart sound present, no click, no gallops, no murmurs and no rubs Peripheral pulses: Peripheral pulses 2+ throughout GI Inspection: Yes normal to inspection Palpation (GI): Soft to palpation Auscultation: normal bowel sounds Skin General skin exam: no rashes or lesions noted Neuro General: patient oriented x3 Extrem General: Yes normal to inspection, No no pedal edema and No calf tenderness Psych Appearance: grossly normal Mental Status: mental status grossly normal Speech and movement: Normal speech and movement present Assessment & Plan Assessment & Plan (1) CAD (coronary artery disease): Code(s): I25.10 - Atherosclerotic heart disease of [place] coronary artery without angina pectoris Category: Medical Plan: History of anterior STEMI who underwent cardiac catheterization on 12/03/2024 that revealed mid LAD with 99% stenosis, left main with less than 30% stenosis, left circumflex with 40% stenosis, and RCA mild irregularities. Patient had successful PCI placement to the mid LAD. Patient has been started on Brilinta but after developing some blurry vision, patient stopped taking all of his medications except aspirin. Approximately a month ago, patient was restarted on his medications and started on Plavix therapy. Patient is reporting compliance with all his medications and denying any side effects from it. Patient states that he feels like his vision has changed since starting the Brilinta but nothing acute at this time after restarting his medications. Patient understands to take Plavix for at least a year without any interruption and to continue with lifelong aspirin therapy. Recent H&H is stable. Advised to continue his statin therapy with an LDL goal less than 70. Patient's blood pressure today stable. Continue current regimen. Patient states his blood pressures have been stable at home as well. Emphasized on the importance of staying compliant with all his medications. Patient verbalizes understanding. Continue cardiac rehab. (2) S/P cardiac cath: Code(s): Z98.890 - Other specified postprocedural states Category: Surgical Plan: As above. (3) Cardiomyopathy: Code(s): I42.9 - Cardiomyopathy, unspecified Category: Medical Plan: 02/06/2025-echo study showed a mildly improved LV systolic function with an ejection fraction at 43%, prior EF between 30-35%. With akinetic apex, apical inferior, apical septal, and mid anteroseptal segments. Clinically stable and euvolemic. Continue current regimen. Discussed in detail about heart failure symptoms. Advised low-salt diet. (4) Nonsustained ventricular tachycardia: Code(s): I47.29 - Other ventricular tachycardia Category: Medical Plan: 07/27/2024-cardiac event monitor showed an episode of 5 beat NSVT. Patient's average heart rate in the 80s. Patient states that his heart rate is better now but can run higher due to family history of sinus tachycardia. Patient understands that if his heart rate or blood pressure is elevated then he may need to go back on low-dose carvedilol therapy. Patient verbalizes understanding. Advised heart healthy diet, regular exercise, emphasized strongly on med compliance and aggressive management of vascular risk factors. Follow up in 4 months. In the interim, patient will call the office with any concerns or change in symptoms. This note was generated using voice recognition software. While every effort has been made to ensure accuracy and proper inserting operator, there may be occasional errors that could affect the content or meaning of the described symptoms. Coding Level of Care Code Est Pt Level 4 (26463) Complex EM visit Add On G2211 Diagnoses CAD (coronary artery disease) I25.10 S/P cardiac cath Z98.890 Cardiomyopathy I42.9 Nonsustained ventricular tachycardia I47.29 Time Spent (min) 33 Comment Time spent in reviewing the chart, test results, assessment, counseling and documentation.
--- OUTSIDE RECORDS SUMMARY | 2025-03-28 15:05 | XMS_ITS | Clinical Summary ---
Author Organization [facility] Address [address] [place] [address] Phone Care Team Providers Care Inspector Salvage Name Role Phone Kashif Ly MD Primary Care Provider Self-Referred, Patient Unavailable Unavailab Chinmay Bear [facility] Unavailable Carlos Mi MD Unavailable Ean Klein [...] file Insurance MEDICARE PART A & B [employer] MEDICARE SUPPLEMENT MEDICARE PART A & B [employer] MEDICARE SUPPLEMENT MEDICARE PART A & B [employer] MEDICARE SUPPLEMENT MEDICARE PART A & B [employer] MEDICARE SUPPLEMENT MEDICARE PART A & B [employer] MEDICARE SUPPLEMENT MEDICARE PART A & B [employer] MEDICARE SUPPLEMENT Care Teams Inspector Salvage Relationship Specialty Start Date End Date Kashif Ly MD [address] [place] [address] [place] [address] [place] [address] PCP - General Internal Medicine 09/02/23 Self-Referred, Patient 09/02/23 Chinmay Rg [facility] [address] [place] [address] [email or web address] 09/02/23 Carlos Mi MD [address] [place] [address] Urology 09/03/23 Ean Klein MD [address] [place] [address] 09/03/23 Additional Source Comments The information contained in this document represents components of the legal health record. It is not the complete legal health record.[facility]
--- OUTSIDE RECORDS SUMMARY | 2025-03-28 15:05 | XMS_ITS | Encounter Summary ---
Author Organization [facility] Address [address] [place] [address] Phone Care Team Providers Care It Service Continuity Supervisor Name Role Phone Kashif Ly MD Primary Care Provider Self-Referred, Patient Unavailable Unavailab Chinmay Bear [facility] Unavailable [phone] Carlos Mi MD Unavailable Ean Klein MD Unavailable [phone] Encounter Details Date Type Department Care Team (Late st Contact Info) Description 09/03/2023 Ancillary Orders Outside Imaging Chinmay Rg [facility] [address] [place] [address] [email or web address] U Social History Tobacco Use Types Packs/Day [...] on filedocumented in this encounter Care Teams It Service Continuity Supervisor Relationship Specialty Start Date End Date Kashif Ly MD [address] [place] [address] [place] [address] PCP - General Internal Medicine 09/02/23 Self-Referred, Patient 09/02/23 Chinmay Rg [facility] [place] [address] [email or web address] Medical Oncology 09/02/23 Carlos Mi MD [address] [place] [address] Urology 09/03/23 Ean Klein MD [address] [place] [phone] 09/03/23 documented as of this encounter Additional Source Comments The information contained in this document represents components of the legal health record. It is not the complete legal health record.[facility]
--- OUTSIDE RECORDS SUMMARY | 2025-03-28 15:05 | XMS_ITS | Encounter Summary ---
Author Organization [facility] Address [address] [place] [address] Phone Care Team Providers Care Table Maker Name Role Phone Kashif Ly MD Primary Care Provider Self-Referred, Patient Unavailable Unavailab Chinmay Bear [facility] Unavailable Carlos Mi MD Unavailable Ean Klein MD Unavailable [phone] Encounter Details Date Type Department Care Team (Late st Contact Info) Description 09/03/2023 Ancillary Orders Outside Imaging Chinmay Rg [facility] [address] [place] [address] [email or web address] U Social History Tobacco Use Types Packs/Day [...] on filedocumented in this encounter Care Teams Table Maker Relationship Specialty Start Date End Date Kashif Ly MD [address] [place] [address] [place] [address] PCP - General Internal Medicine 09/02/23 Self-Referred, Patient 09/02/23 Chinmay Rg [facility] [place] [address] [email or web address] Medical Oncology 09/02/23 Carlos Mi MD [address] [place] [address] Urology 09/03/23 Ean Klein MD [address] [place] [address] 09/03/23 documented as of this encounter Additional Source Comments The information contained in this document represents components of the legal health record. It is not the complete legal health record.[facility]
--- OUTSIDE RECORDS SUMMARY | 2025-03-28 15:05 | XMS_ITS | Encounter Summary ---
Author Organization [facility] Address [address] [place] [address] Phone Care Team Providers Care Web Marketing Analyst Name Role Phone Kashif Ly MD Primary Care Provider Self-Referred, Patient Unavailable Unavailab Chinmay Bear [facility] Unavailable Carlos Mi MD Unavailable Ean Klein MD Unavailable Encounter Details Date Type Department Care Team (Late st Contact Info) Description 09/03/2023 Ancillary Orders Outside Imaging Chinmay Rg [facility] [address] [place] [address] [email or web address] U Social History Tobacco Use Types Packs/Day [...] on filedocumented in this encounter Care Teams Web Marketing Analyst Relationship Specialty Start Date End Date Kashif Ly MD [address] [place] [address] [place] [address] PCP - General Internal Medicine 09/02/23 Self-Referred, Patient 09/02/23 Chinmay Rg [facility] [place] [address] [email or web address] Medical Oncology 09/02/23 Carlos Mi MD [address] [place] [address] Urology 09/03/23 Ean Klein MD [address] [place] [address] 09/03/23 documented as of this encounter Additional Source Comments The information contained in this document represents components of the legal health record. It is not the complete legal health record.[facility]
== END 2025-03-28 13:20 | disposition home or self-care (01) ==
LOC: HO.HCS 12:40
PROVIDERS: PCP Internal Medicine
DX: I25.10 Atherosclerotic heart disease of native coronary artery without angina pectoris (principal); Z98.890 Other specified postprocedural states; I42.9 Cardiomyopathy, unspecified; I47.29 Other ventricular tachycardia
CPT/HCPCS: 99214; G2211

== ENCOUNTER → 2025-03-28 12:40 | Outpatient (BNVA) | payer MEDICARE, OTHER, SELFPAY | PROVIDERS: PCP Internal Medicine | DX: I25.10 Atherosclerotic heart disease of native coronary artery without angina pectoris (principal); I42.9 Cardiomyopathy, unspecified; I47.29 Other ventricular tachycardia; Z98.890 Other specified postprocedural states | CPT/HCPCS: 99212 ==

== ENCOUNTER 2025-04-04 13:30 | Outpatient (RCR) | payer MEDICARE, OTHER, SELFPAY | END 2025-05-15 12:43 | disposition home or self-care (01) | LOC: HO.CR 13:30 | PROVIDERS: PCP Internal Medicine; Visit Provider Internal Medicine Cardiovascular Disease | DX: Z95.820 Peripheral vascular angioplasty status with implants and grafts (principal); I47.29 Other ventricular tachycardia; Z98.61 Coronary angioplasty status | CPT/HCPCS: 93798 ==

== ENCOUNTER → 2025-05-08 13:53 | Outpatient (REF) | payer MEDICARE, OTHER, SELFPAY ==
--- NOTE | 2025-05-08 13:56 | CA_ITS ---
Transthoracic Echocardiogram Patient (Last, First, Middle): Harshad Salguero, Gender: M Date of : 1940 Age: 85 Procedure Date: 05/08/2025 Procedure Type: Transthoracic Echocardiogram Location: OP Height: 172.72 cm Weight: 68.04 kg BSA: 1.81 m2 Heart Rate: bpm BP: 118 / 60 mmHg Night Patrol Inspector: Referring MD: Ean Klein MD Symptoms: measure EF, before chemotherapy Study Quality: Adequate with Contrast ECG Rhythm: Sinus Conclusions: - The left ventricular systolic function is severely decreased. The visually estimated ejection fraction is between 25-30%. - The apex, apical inferior, apical septum, mid inferoseptal, and mid anteroseptal segments are akinetic. Findings Left Ventricle Normal left ventricular cavity size. The left ventricular systolic function is severely decreased. The visually estimated ejection fraction is between 25-30%. There is evidence of regional wall motion abnormalities. Wall Motion Rest Echo Findings The apex, apical inferior, apical septum, mid inferoseptal, and mid anteroseptal segments are akinetic. Venous The inferior vena cava is normal in size and collapses greater than 50% with inspiration. Prior Study Comparison Changes noted compared to prior study dated: 02/06/2025. LVEF appears lower than before. Measurements 2D Linear Measurements IVSd: 1.04 0.6-0.9/0.6-1.0 cm LVIDd: 4.57 3.9-5.3/4.2-5.9 cm LVIDd Index: 2.52 2.4-3.2/2.2-3.1 cm/m2 LVIDs: 3.67 2.0-3.6 cm LVPWd: 0.96 0.7-1.1 cm LV Mass: 196.08 67-162/88-224 g LV Mass Index: 108.33 43-95/49-115 g/m2 2D Systolic Function EF 4C: 41.80 >55% EF 2C: 28.80 >55% EF BiP: 36.00 >55% Right Ventricle TAPSE (mm): 26.00 TVS' Getachew: 18.00 Updated in Other Vendor System with Status of Final Vijay Lozano MD electronically signed on 05/08/2025 3:54:45 PM with status of Final
--- OUTSIDE RECORDS SUMMARY | 2025-05-08 16:53 | XMS_ITS | Clinical Summary ---
Author Organization [facility] Address [address] [place] [address] Phone Care Team Providers Care Dialysis Tech Name Role Phone Kashif Ly MD Primary Care Provider Self-Referred, Patient Unavailable Unavailab Chinmay Bear [facility] Unavailable Carlos Mi MD Unavailable Ean Klein MD Unavailable [phone] Allergies No known active allergies Medications bicalutamide [...] VACCINE (1 - 1-dose 75+ series) 2013 INFLUENZA VACCINE (#1) 2025 , 05/30/2022, 05/10/2019, Additional history exists COVID-19 VACCINE (2024- season) 2025 05/08/2023, 08/01/2022, 06/24/2021, Additional history exists HEPATITIS [...] file Insurance MEDICARE PART A & B [facility] MEDICARE SUPPLEMENT MEDICARE PART A & B [facility] MEDICARE SUPPLEMENT MEDICARE PART A & B [employer] MED[employer] SUPPLEMENT MEDICARE PART A & B [employer] MEDIC[employer] SUPPLEMENT MEDICARE PART A & B Member Subscriber Plan / Payer (Ef fective 2003-) Name:Harshad Salguero Member ID:[id number] Relation to Subscriber:Self Name:Harshad Salguero Subscriber ID:[id number] Payer ID:[id number] Group ID:Not on file Type:Medicare Address: [facility] [email or web address] [facility] [address] [place] [phone] [facility] [employer] MEDICARE SUPPLEMENT MEDICARE PART A & B [facility] [employer] MEDICARE SUPPLEMENT Care Teams Dialysis Tech Relationship Specialty Start Date End Date Kashif Ly MD [address] [place] [address] [address] PCP - General Internal Medicine 09/02/23 Self-Referred, Patient 09/02/23 Chinmay Rg [facility] [address] [place] [address] [email or web address] Medical Oncology 09/02/23 Carlos Mi MD [address] [place] [address] Urology 09/03/23 Ean Klein MD [address] [place] [address] 09/03/23 Additional Source Comments The information contained in this document represents components of the legal health record. It is not the complete legal health record.[facility]
--- OUTSIDE RECORDS SUMMARY | 2025-05-08 16:53 | XMS_ITS | Clinical Summary ---
Author Organization [facility] Address [address] [place] [address] Phone Care Team Providers Care Forest Fire Prevention Specialist Name Role Phone Unavailable Primary Care Provider Unavailabl e Encounters Date Type Department Care Team Description 04/13/2025 1:40 PM EDT - 04/13/2025 11:59 PM EDT Hospital Encounter [facility] PET Scan [address] [place] [address] Prostate cancer (CMS/HCC V24, CMS/[facility] V28) Discharge Disposition: Home or Self Care from Last 3 Months Social History Tobacco Use Types Packs/Day Years Used Date Smoking Tobacco: Never Assessed Sex and Gender Information Value Date Recorded Sex Assigned at Not on file Legal Sex Male 11:40 AM EDT Gender Identity Not on file Sexual Orientation Not on file Plan of Treatment Health Maintenance Due Date Last Done Comments DTaP,Tdap,and Td Vaccines (1 - Tdap) 1959 Pneumococcal Vaccine: 50+ Years (1 of 1 - PCV) 02/25/1988 Zoster Vaccines (1 of 2) 02/25/1988 RSV Immunization Adult Patients (1 - 1-dose 75+ series) 2013 Depression Screening 07/26/2024 COVID-19 Vaccine ( season) 2025 05/01/2024, 05/08/2023, 08/01/2022, Additional history exists Influenza Vaccine (#1) 2025 , 05/30/2022, 05/10/2019, Additional history exists Cholesterol Screening (Lipid Panel) 04/12/2025 Falls Risk Assessment 04/12/2025 Medicare Annual Wellness Visit 04/12/2025 Social Influencers of Health Screening 04/12/2025 HIB Vaccines Aged Out No longer eligi ble based on patient's age to complete this topic HPV Vaccines Aged Out No longer eligi ble based on patient's age to complete this topic Hepatitis A Vaccines Aged Out No long er eligible based on patient's age to complete this topic Hepatitis B Vaccines Aged Out No long er eligible based on patient's age to complete this topic IPV Vaccines Aged Out No longer eligi ble based on patient's age to complete this topic MMR Vaccines Aged Out No longer eligi ble based on patient's age to complete this topic Meningococcal ACWY Vaccine Aged Out N o longer eligible based on patient's age to complete this topic Meningococcal B Vaccine Aged Out No l onger eligible based on patient's age to complete this topic RSV Immunization Patients Under 20 months Aged Out No longer eligible based on patient's age to complete this topic Varicella Vaccines Aged Out No longer eligible based on patient's age to complete this topic Procedures Procedure Name Priority Date/Time Associated Diagnosis Comments PET CT SKULL TO MID THIGH INITIAL Routine 04/13/2025 6:32 PM EDT Prostate cancer ([facility] V24, [facility] V28) from Last 3 Months Results * PET CT Skull to Mid Thigh Initial (04/13/2025 6:32 PM EDT) Anatomical Region Laterality Modality Body Radiographic Laura ging 04/18/2025 6:03 AM EDT Impressions 04/18/2025 10:38 AM EDT 1. Abnormal uptake within the prostate gland extending into the rectum in keeping with patient's known prostate carcinoma. 2. Innumerable osseous metastatic lesions. -------- FINAL REPORT -------- Dictated By: Latasha Levy Dictated Date: 04/18/2025 06:03 ET Assigned Physician: Latasha Levy Reviewed and Electronically Signed By: Latasha Levy Signed Date: 04/18/2025 10:38 ET Workstation ID: [id number] Transcribed By: Self Edit Transcribed Date: 04/18/2025 06:23 ET Narrative 04/18/2025 10:38 AM EDT HISTORY: Prostate carcinoma, initial treatment outside imaging demonstrating osseous metastatic disease with abnormal soft tissue density within the anterior and lateral rectal wall either representing perirectal extension versus primary rectal pathology in addition to pelvic sidewall lymph nodes. PRIOR IMAGING STUDIES: Outside bone scan dated July 2024, outside chest CT November 2024 RADIOPHARMACEUTICAL: 9.4 mCi F-18 piflufolastat IV INJECTION SITE: Left antecubital INJECTION TIME TO SCAN TIME: 60 min PROCEDURE: Routine body PET-CT imaging performed from the head to the thighs and reconstructed in axial, coronal, sagittal planes at the computer workstation with fused data from both the PET imaging study and attenuation correction CT study. Please note, CT imaging utilized strictly for attenuation correction and anatomic localization: CT not designed to produce and cannot replace ymrim-xd-nel-art true diagnostic CT examination with specific protocols. Standardized uptake values (SUV) normalized to patient body weight and indicate the highest active concentration (SUV max) in a given disease site. DLP: 357 mGy-cm IMAGING FINDINGS: Reference Values SUV Max: Parotid: 14.3 Blood Pool: 2.2 Liver: 7.5 Expected pattern of physiological activity noted. HEAD AND NECK: No abnormal activity. THORAX: No abnormal activity. Scattered sub-5 mm pulmonary nodules without significant activity measuring up to SUV Max 1.0. Coronary artery calcifications. Small hiatal hernia. ABDOMEN/PELVIS: Abnormal uptake within the prostate gland extending into the rectum SUV max 21.7. Indeterminant lesion in the right lower pole of the kidney does not demonstrate significant activity in comparison to background. Low-attenuation lesion in the liver without significant activity. Dilatation of the distal ureters. Urinary bladder diverticula. No significant metabolically active abdominal or pelvic lymphadenopathy is noted. MUSCULOSKELETAL: Innumerable osseous lesions demonstrating activity. For example right iliac bone SUV max 13.8, right sacrum SUV max 23.7, left ischial tuberosity SUV max 19.8 and left femur SUV Max 5.3. Abnormal uptake in the right arm adjacent to the right humerus SUV Max 7.6 either representing misregistration with osseous metastatic uptake, soft tissue metastatic uptake or muscle uptake. Procedure Note Latasha Levy MD - 04/18/2025 HISTORY: Prostate carcinoma, initial treatment outside imagingdemonstrating osseous metastatic disease with abnormal soft tissue densitywithin the anterior and lateral rectal wall either representing perirectalextension versus primary rectal pathology in addition to pelvic sidewalllymph nodes. PRIOR IMAGING STUDIES: Outside bone scan dated July 2024, outside chestCT November 2024 RADIOPHARMACEUTICAL: 9.4 mCi F-18 piflufolastat IV INJECTION SITE: Left antecubital INJECTION TIME TO SCAN TIME: 60 min PROCEDURE: Routine body PET-CT imaging performed from the head to the thighs andreconstructed in axial, coronal, sagittal planes at the computerworkstation with fused data from both the PET imaging study andattenuation correction CT study. Please note, CT imaging utilized strictlyfor attenuation correction and anatomic localization: CT not designed toproduce and cannot replace sxsek-ut-wdd-art true diagnostic CT examinationwith specific protocols. Standardized uptake values (SUV) normalized topatient body weight and indicate the highest active concentration (SUVmax) in a given disease site. DLP: 357 mGy-cm IMAGING FINDINGS: Reference Values SUV Max: Parotid: 14.3 Blood Pool: 2.2 Liver: 7.5 Expected pattern of physiological activity noted. HEAD AND NECK: No abnormal activity. THORAX: No abnormal activity. Scattered sub-5 mm pulmonary nodules without significant activitymeasuring up to SUV Max 1.0. Coronary artery calcifications. Smallhiatal hernia. ABDOMEN/PELVIS: Abnormal uptake within the prostate gland extending intothe rectum SUV max 21.7. Indeterminant lesion in the right lower pole of the kidney does notdemonstrate significant activity in comparison to background.Low-attenuation lesion in the liver without significant activity. Dilatation of the distal ureters. Urinary bladder diverticula. No significant metabolically active abdominal or pelvic lymphadenopathy isnoted. MUSCULOSKELETAL: Innumerable osseous lesions demonstrating activity. Forexample right iliac bone SUV max 13.8, right sacrum SUV max 23.7, leftischial tuberosity SUV max 19.8 and left femur SUV Max 5.3. Abnormal uptake in the right arm adjacent to the right humerus SUV Max 7.6either representing misregistration with osseous metastatic uptake, softtissue metastatic uptake or muscle uptake. IMPRESSION: 1. Abnormal uptake within the prostate gland extending into the rectum inkeeping with patient's known prostate carcinoma. 2. Innumerable osseous metastatic lesions. -------- FINAL REPORT -------- Dictated By: Latasha Levy Dictated Date: 04/18/2025 06:03 ET Assigned Physician: Latasha Levy Reviewed and Electronically Signed By: Latasha Levy Signed Date: 04/18/2025 10:38 ET Workstation ID: [id number] Transcribed By: Self Edit Transcribed Date: 04/18/2025 06:23 ET Renée Klein MD IMG NM PROCEDURES Final Result from Last 3 Months Insurance MEDICARE [facility]
--- OUTSIDE RECORDS SUMMARY | 2025-05-08 16:53 | XMS_ITS | Encounter Summary ---
Author Organization [facility] Address [address] [facility] [address] [place] [address] Phone Care Team Providers Care Code Official Name Role Phone Kashif Ly MD Primary Care Provider Self-Referred, Patient Unavailable Unavailab Chinmay Bear [facility] Unavailable [phone] Carlos Mi MD Unavailable Ean Klein MD Unavailable Encounter Details Date Type Department Care Team (Late st Contact Info) Description 09/03/2023 Ancillary Orders Outside Imaging Chinmay Rg, [facility] [address] [place] [address] [email or web address] U Social History Tobacco Use Types Packs/Day [...] Interpretation) (08/23/2023 12:00 AM EST) Other Narrative YUERhiannaSUSHANTRochelle - 09/03/2023 12:45 PM EST This study is for PACS storage only and not for interpretation. us Chinmay Calderón IMG OUTSIDE IMAGING W/OUT IN TERPRETATION Final Result [facility] documented in this encounter Visit Diagnoses Not on filedocumented in this encounter Care Teams Code Official Relationship Specialty Start Date End Date Kashif Ly MD [address] [place] [address] [place] [address] PCP - General Internal Medicine 09/02/23 Self-Referred, Patient 09/02/23 Chinmay Rg [facility] [address] [place] [phone] [email or web address] Medical Oncology 09/02/23 Carlos Mi MD [address] [place] [address] Urology 09/03/23 Ean Klein MD [address] [place] [address] 09/03/23 documented as of this encounter Additional Source Comments The information contained in this document represents components of the legal health record. It is not the complete legal health record.[facility]
--- OUTSIDE RECORDS SUMMARY | 2025-05-08 16:53 | XMS_ITS | Encounter Summary ---
Author Organization [facility] Address [address] [place] [address] Phone Care Team Providers Care Advertising Sales Executive Name Role Phone Kashif Ly MD Primary Care Provider Self-Referred, Patient Unavailable Unavailab Chinmay Bear [facility] Unavailable Carlos iM MD Unavailable Ean Klein MD Unavailable Encounter Details Date Type Department Care Team (Late st Contact Info) Description 09/03/2023 Ancillary Orders Outside Imaging Chinmay Rg, [facility] [address] [place] [address] [email or web address] U Social History Tobacco Use Types Packs/Day [...] on filedocumented in this encounter Care Teams Advertising Sales Executive Relationship Specialty Start Date End Date Kashif Ly MD [address] [place] [address] [place] [address] PCP - General Internal Medicine 09/02/23 Self-Referred, Patient 09/02/23 Chinmay Rg [facility] [address] [place] [phone] [email or web address] Medical Oncology 09/02/23 Carlos Mi MD [address] [place] [address] Urology 09/03/23 Ean Klein MD [address] [place] [address] 09/03/23 documented as of this encounter Additional Source Comments The information contained in this document represents components of the legal health record. It is not the complete legal health record.[facility]
--- OUTSIDE RECORDS SUMMARY | 2025-05-08 16:53 | XMS_ITS | Encounter Summary ---
Author Organization [facility] Address [address] [facility] [address] [place] [address] Phone Care Team Providers Care Fountain Pen Turner Name Role Phone Kashif Ly MD Primary Care Provider Self-Referred, Patient Unavailable Unavailab Chinmay Bear [facility] Unavailable Carlos Mi MD Unavailable Ean Klein MD Unavailable Encounter Details Date Type Department Care Team (Late st Contact Info) Description 09/03/2023 Ancillary Orders Outside Imaging Chinmay Rg, [facility] [address] [place] [address] [email or web address] U Social History Tobacco Use Types Packs/Day [...] on filedocumented in this encounter Care Teams Fountain Pen Turner Relationship Specialty Start Date End Date Kashif Ly MD [address] [place] [address] [place] [address] PCP - General Internal Medicine 09/02/23 Self-Referred, Patient 09/02/23 Chinmay Rg [facility] [address] [place] [address] [email or web address] Medical Oncology 09/02/23 Carlos Mi MD [address] [place] [address] Urology 09/03/23 Ean Klein MD [address] [place] [phone] 09/03/23 documented as of this encounter Additional Source Comments The information contained in this document represents components of the legal health record. It is not the complete legal health record.[facility]
== END ==
LOC: HO.CARD 13:53
PROVIDERS: PCP Internal Medicine; Visit Provider Internal Medicine Medical Oncology
DX: C61 Malignant neoplasm of prostate (principal); Z19.2 Hormone resistant malignancy status
CPT/HCPCS: 93306; Q9957

== ENCOUNTER → 2025-05-08 13:56 | Outpatient (BNV) | payer MEDICARE, OTHER, SELFPAY | PROVIDERS: PCP Internal Medicine; Visit Provider Internal Medicine | DX: Z01.818 Encounter for other preprocedural examination (principal); Z51.81 Encounter for therapeutic drug level monitoring | CPT/HCPCS: 93306 ==

== ENCOUNTER 2025-05-25 12:12 | Emergency (ER) | payer MEDICARE, OTHER, SELFPAY ==
--- NOTE | ~2025-05-25 | XR_ITS ---
EXAMINATION: XR CHEST CLINICAL INFORMATION: weakness COMPARISON: Previous chest x-ray is present November 2024 TECHNIQUE: 2 views of the chest were obtained. FINDINGS: The lungs are clear. No consolidation or pulmonary edema. No pleural effusion or pneumothorax. Cardiac and mediastinal contours are normal. Degenerative changes of the spine. XR/XR chest 2V IMPRESSION: No evidence for acute disease in the chest. Electronically signed by: Kecia Rojas MD 05/25/2025 01:28 PM EDT
[2025-05-25 12:30] VITALS: BP 139/75; BP 153/74; PULSE 104; PULSE 107; RESP 16; TEMP 36.7; O2SAT 93; O2SAT 94; BMI 22.8
--- NOTE | 2025-05-25 12:39 | ECG_ITS ---
Test Reason : weakness Blood Pressure : */* mmHG Vent. Rate : 109 BPM Atrial Rate : 109 BPM P-R Int : 130 ms QRS Dur : 84 ms QT Int : 296 ms P-R-T Axes : 32 -2 67 degrees QTcB Int : 398 ms Sinus tachycardia Cannot rule out Inferior infarct , age undetermined Anterior infarct , age undetermined Abnormal ECG When compared with ECG of 19-Jan-2025 09:10, Premature ventricular complexes are no longer Present Referred By: Amina Osuna Electronically Signed By: BHAVIN VICENET
--- NOTE | 2025-05-25 12:42 | ED_ITS ---
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 Patient states that over the last 2 days he has felt generally unwell - eating and drinking less. Patient states that today, he slept in and when he got up, he took his prednisone pill. Patient states that after that he was sitting and his grandson states that he passed out . Patient states that he then had a bowel movement and felt significantly better. Patient states he had been having issues with constipation the last few weeks. Patient denies any complaints at this time, states that he feels back to baseline. Related Data Previous Rx's ?Medication ?Instructions ?Recorded prednisone 10 mg tablet 10 mg PO DIRECTED #60 tab s 02/02/25 prednisone 5 mg tablet 5 mg PO DAILY #30 tabs 05/08 Allergies Allergy/AdvReac Type Severity Reaction Status Date / Time amoxicillin (From Augmentin) Allergy Severe tongue/facial Verified 05/25/25 12:33 swelling clavulanic acid (From Allergy Severe tongue/facial Verified 05/25/25 12:33 Augmentin) swelling Review of Systems 2 Constitutional: Constitutional: Reports as per HPI Eyes: Eyes: Reports as per HPI ENT: Reports as per HPI Cardiovascular: Cardiovascular: Reports as per HPI Respiratory: Respiratory: Reports as per HPI Gastrointestinal: Gastrointestinal: Reports as per HPI Genitourinary: Genitourinary: Reports as per HPI Musculoskeletal: Musculoskeletal: Reports as per HPI Integumentary/Breasts: Skin/Breast: Reports as per HPI Neurologic: Reports as per HPI Psychiatric: Psychiatric: Reports as per HPI Endocrine: Endocrine: Reports as per HPI Hematologic/Lymphatic: Hematologic/Lymphatic: Reports as per HPI Allergic/Immunologic: Allergic/Immunologic: Reports as per HPI [facility] Past Medical History Attestation statement: The following information was validated with the patient. (all information validated with the patient's son) Source: old records reviewed, obtained from family (patient's son provided additional history and confirmed the history provided by the patient. ) and nursing notes reviewed Medical History Prostate cancer metastatic to bone Hemorrhoids Elevated PSA Surgical History Hx of prostate biopsy Family History Family History Mother No problems noted. Father No problems noted. 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 Cognitive needs: No Hearing needs: No (pt throw them away, he's not using them ) Vision needs: Yes (rx ) Physical Exam ED Vital Signs: Vital Signs - 24 hr 05/25/25 12:30 05/25/25 14:52 05/25/25 14:56 Temperature 98.0 F Pulse Rate 104 H 96 Respiratory Rate 16 18 Blood Pressure 153/74 H 120/58 L Pulse Oximetry 93 94 96 Oxygen Delivery Method Room Air Room Air Room Air 05/25/25 16:23 Temperature 98.2 F Pulse Rate 96 Respiratory Rate 18 Blood Pressure 120/58 L Pulse Oximetry 96 Oxygen Delivery Method Room Air BMI result Body Mass Index 22.8 Const General: cooperative, no acute distress, alert and awake Nutritional Appearance: well nourished Orientation/consciousness: patient oriented x3 HENMT Head: Yes normal to inspection and Yes atraumatic Ears: hearing grossly normal bilaterally and external ears normal General nose exam: Normal external nose present, no nasal discharge noted and no epistaxis Face and sinus: Yes normal facial exam, No abrasion and No laceration Mouth: Normal oral and palatal mucosa present, no drooling and no muffled voice Eyes General: appearance normal, both eyes and all related structures Periorbital: periorbital findings normal Eyelids: Yes eyelids normal Conjunctivae: conjunctivae normal Pupils: Equal, round and reactive pupils present EOM: EOMs intact bilaterally Neck Neck: Yes normal visual inspection and Yes full ROM Resp Effort & Inspection: normal respiratory effort and able to speak in complete sentences Neuro General: patient oriented x3, moves all extremities and CN's II-XI intact bilaterally Cranial nerves: Yes Equal, round and reactive pupils present Cognition (Neuro): normal cognition Extrem General: Yes normal to inspection, Yes full ROM and Yes capillary refill normal Psych Appearance: grossly normal Mental Status: mental status grossly normal Affect: normal affect Attitude: cooperative Thought process: Normal thought process present Thought content: Normal thought content present Insight: Good insight present (Psych) Medications Administered Discontinued Medications Generic Name Dose Route Start Last Admin Trade Name Freq PRN Reason Stop Dose Admin Sodium Chloride 1,000 mls @ 999 mls/hr 05/25/25 13:45 05/25/25 16:22 Ns IV 05/25/25 14:45 Infused .Q1H1M BAUTISTA Infusion Medical Decision Making Medical Decision Making MDM Narrative: Patient is an 85 year old assigned male at with a history of c.diff for which he is on multiple antibiotics, 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 Patient's physical exam was unremarkable. Patient's blood work showed an elevated WBC count of 17.8 - I am suspicious this is in part secondary to his chronic prednisone use. Patient's labs were otherwise unremarkable. Patient's EKG showed sinus tachycardia however, he was not tachycardic upon my physical examination. Patient's chest x-ray showed no acute process. Patient's UA was unremarkable. I explained my physical exam findings as well as all test results to the patient and the patient's son. I answered all questions asked by the patient and the patient's son. Patient received IV fluids while in the department. I am suspicious the patient had a vasovagal syncopal episode. I spoke with the patient and his son about admission vs. discharge home with strict return precautions. Together, through shared decision making, we determined the patient would discharge home with his daughter living / staying in the home with him and a low threshold to call 911 or return to the emergency department. I stressed the importance of the patient taking his medication as directed (either prescribed or as the over the counter packaging recommends). I stressed the importance of the patient following up with his primary care provider. I stressed the importance of the patient returning to the emergency department immediately if he were to have another episode or develop any dizziness, shortness of breath, difficulty breathing, chest pain, blurry vision, loss of vision, nausea, vomiting, abdominal pain, fever, chills, back pain, or any other complaints. Patient and the patient's son verbalized agreement and understanding with this treatment plan and discharge. Differential Diagnosis Differential Diagnoses: The differential diagnosis associated with the presentation includes Syncope Vasovagal syncope Viral illness Dehydration Admission/Observation Consideration of admission/observation: Escalation of care including admission/observation considered Patient would have been admitted to the hospital had his work up had any findings where hospital admission was appropriate, his clinical presentation warranted hospital admission, and had the patient wanted to be admitted vs. going home. Lab Data [facility] Lab Attestation statement: I reviewed the patient's lab results. My interpretation of these results are in the [facility] Rationale portion of this note. 05/25/25 13:05 05/25/25 13:05 Labs: Lab Results 05/25/25 05/25/25 05/25/25 Range/Units 13:05 13:59 15:59 WBC 17.8 H (4.8-10.8) X10*3/uL RBC 3.86 L (4.60-5.80) X10*6/uL Hgb 11.8 L (14.0-18.0) g/dl Hct 35.9 L (42.0-52.0) % MCV 93.0 (80.0-98.0) fL MCH 30.6 (27.0-33.0) pg MCHC 32.9 (31.0-36.0) g/dl RDW 15.6 (11.0-16.0) % Plt Count 181 (160-400) X10*3/uL MPV 8.9 L (9.4-12.4) fL Immature Gran % (Auto) 5.0 H (0.0-0.4) % Neut % (Auto) 78.2 H (45-73) % Lymph % (Auto) 7.2 L (20-40) % Steele % (Auto) 8.2 (2-11) % Eos % (Auto) 1.1 (0-4) % Baso % (Auto) 0.3 (0-2) % Lymph # (Auto) 1.3 (1.2-4.9) X10*3/uL Steele # (Auto) 1.5 H (0.1-1.2) X10*3/uL Eos # (Auto) 0.2 (0.0-0.4) X10*3/uL Baso # (Auto) 0.1 (0.0-0.2) X10*3/uL Abs Immat Gran (auto) 0.90 H (0.00-0.03) X10*3/uL Absolute Neuts (auto) 14.0 H (2.0-8.3) x10*3/uL Absolute Nucleated RBC 0.000 (0.0-0.012) X10*3/uL Nucleated RBC % (auto) 0.0 (0.0-0.2) /100WBC PT 14.9 H D (10.9-12.4) SEC INR 1.3 H (0.9-1.1) Sodium 137 (135-145) mmol/L Potassium 4.3 (3.3-5.1) mmol/L Chloride 102 (96-108) mmol/L Carbon Dioxide 23 (22-29) mmol/L Anion Gap 16 (12-20) BUN 19 H (9-16) mg/dL Creatinine 0.97 (0.5-1.4) mg/dL Estim Creat Clear Calc 51.6 Estimated GFR > 60 Random Glucose 102 (60-115) mg/dL Calcium 8.4 D (8.4-10.2) mg/dL Magnesium 1.9 (1.6-2.6) mg/dL Total Bilirubin 0.6 (0.0-1.0) mg/dL AST 53 H (5-37) U/L ALT 25 (0-40) U/L Alkaline Phosphatase 64 (39-117) U/L Troponin I High Sens 31.7 34.0 (<3.5-35.0) ng/L Total Protein 6.0 L (6.5-8.0) g/dL Albumin 3.3 L (3.5-5.0) g/dL Urine Color Yellow Urine Appearance Clear Urine pH 6.0 (5.0-9.0) Ur Specific [place] 1.010 (1.005-1.025) Urine Protein Negative (Neg-Trace) mg/dL Urine Glucose (UA) Negative (Negative) mg/dL Urine Ketones Negative (Negative) mg/dL Urine Blood Trace H (Negative) Urine Nitrite Negative (Negative) Ur Leukocyte Esterase Negative (Negative) Urine RBC 0-2 (0-2) /HPF Urine WBC 0-5 (0-5) /HPF Ur Squamous Epith Cells 0-2 (0-2) /HPF Urine Bacteria None Seen (None Seen) Hyaline Casts 0-2 (0-2) /LPF COVID-19 (NIKO) Negative (Negative) COVID-19 Clin Com See Note Influenza Type A (LD) Negative (Negative) Influenza Type B (LD) Negative (Negative) Influenza A & B Note See Note Independent Interpretation I performed an independent interpretation of an: EKG and Plain X-Ray Interpretation: My interpretation is in agreement with the radiologist's impression of this imaging study. L Reason for Exam: weakness EXAMINATION: XR CHEST CLINICAL INFORMATION: weakness COMPARISON: Previous chest x-ray is present November 2024 TECHNIQUE: 2 views of the chest were obtained. FINDINGS: The lungs are clear. No consolidation or pulmonary edema. No pleural effusion or pneumothorax. Cardiac and mediastinal contours are normal. Degenerative changes of the spine. XR/XR chest 2V IMPRESSION: No evidence for acute disease in the chest. Electronically signed by: Kecia Rojas MD 05/25/2025 01:28 PM EDT Dictated By: Kecia Rojas MD Signed By: Electronically signed by Kecia Rojas MD 05/25/25 1328 I independently interpreted this EKG and am in agreement with the below findings: Vent. Rate: 109 BPM Atrial Rate: 109 BPM P-R Int: 130 ms QRS Dur: 84 ms QT Int: 296 ms P-R-T Axes: 32 -2 67 degrees QTcB Int: 398 ms Sinus tachycardia When compared with ECG of 19-Jan-2025 09:10, Premature ventricular complexes are no longer Present DD/ 1322 Radiology Impression Discussion of test interpretation with radiology: I have reviewed the radiologist's reading. Independent Historian Clinical information obtained from an independent historian. History obtained from or confirmed by: EMS (EMS provided additional history and confirmed the history provided by the patient. ) and Other (patient's son provided additional history and confirmed the history provided by the patient. ) Discharge Plan Discharge Clinical Impression: Dehydration, Syncope, vasovagal Patient Disposition: Home, Self-Care Instructions: Dehydration (DC), Syncope (DC) Additional Instructions: Continue taking your medication as prescribed and staying well hydrated. IF you are prescribed home medications and/or you are taking over the counter medications at home - it is very important you continue to do so as prescribed / directed unless told otherwise. Follow up with your primary care provider. Return to the emergency department immediately if your symptoms worsen or if you develop any numbness, tingling, dizziness, shortness of breath, difficulty breathing, chest pain, blurry vision, loss of vision, nausea, vomiting, abdominal pain, fever, chills, back pain, or any other complaints. Please see the information below about our Patient Portal. If you are not yet enrolled in the [facility] Patient Portal, you will receive an enrollment email invitation following your visit to any [facility] setting. You may also self-enroll in the Patient Portal by visiting our website: [email or web address] The following information is required to access the Patient Portal: - Your [facility] Medical Record Number - Your personal home email address (must match what is in your electronic medical record, Registration staff can assist with this) - Name - Date of Capabilities of the Patient Portal: - Message some providers - View upcoming appointments - Access your health summary, medical history, and visit history - View current conditions and allergies - View procedure and lab results - View your medications, including guidelines, side effects, and precautions - Complete pre-appointment questionnaires requested by your provider - Ready summary reports of your office visits and procedures To access the Patient Portal Mobile Della, follow these directions: - Search [employer] in the Della Store or Google Play Store - Download the Della - Search for [facility] - Enter your login/password Prescriptions: No Action prednisone 10 mg Tablet 10 mg PO DIRECTED Qty: 60 3RF Rx Instructions: see taper instructions prednisone 5 mg Tablet 5 mg PO DAILY Qty: 30 0RF Referrals: Afia Segura MD [Primary Care Provider, Endocrinology] Stand Alone Forms: Work/School Release Interventions: ED Discharge Assessment Last Done: 05/25/25 16:23 Discharge Date/Time: 05/25/25 16:23 Print Language: South Korean
[2025-05-25 13:08] LABS: MANUAL DIFF FLAG NO
[2025-05-25 13:10] LABS: Hematocrit 35.9 % (42.0-52.0); Hemoglobin 11.8 g/dl (14.0-18.0); Imm Gran Abs Auto 0.90 X10*3/uL (0.00-0.03); Imm Gran Pct Auto 5.0 % (0.0-0.4); Lymphocytes Absolute Auto 1.3 X10*3/uL (1.2-4.9); Mean Corpuscular HGB Conc 32.9 g/dl (31.0-36.0); Mean Corpuscular Hemoglobin 30.6 pg (27.0-33.0); Mean Corpuscular Volume 93.0 fL (80.0-98.0); NRBC Abs Auto 0.000 X10*3/uL (0.0-0.012); NRBC Pct Auto 0.0 /100WBC (0.0-0.2); Platelet Count 181 X10*3/uL (160-400); Red Blood Count 3.86 X10*6/uL (4.60-5.80); White Blood Count 17.8 X10*3/uL (4.8-10.8)
[2025-05-25 13:16] LABS: INTERNATIONAL NORM RATIO 1.3 (0.9-1.1); Prothrombin Time 14.9 SEC (10.9-12.4)
[2025-05-25 13:24] LABS: Alanine Aminotransferase 25 U/L (0-40); Albumin Level 3.3 g/dL (3.5-5.0); Alkaline Phosphatase 64 U/L (39-117); Anion Gap 16 (12-20); Aspartate Amino Transferase 53 U/L (5-37); Blood Urea Nitrogen 19 mg/dL (9-16); Calcium 8.4 mg/dL (8.4-10.2); Carbon Dioxide 23 mmol/L (22-29); Chloride 102 mmol/L (96-108); Creatinine Clr Calc Pharmacy 51.6; Estimated Glomerular Filt Rate > 60; Magnesium 1.9 mg/dL (1.6-2.6); Potassium 4.3 mmol/L (3.3-5.1); Sodium 137 mmol/L (135-145); Total Protein 6.0 g/dL (6.5-8.0)
[2025-05-25 13:31] LABS: COVID-19 Test Negative (Negative); IDNOW Serial# 55D5AD1C; IDNOW Serial# 58CA691E; Influenza B2 Negative (Negative)
[2025-05-25 13:32] LABS: Troponin-I High Sensitivity 31.7 ng/L (<3.5-35.0)
--- OUTSIDE RECORDS SUMMARY | 2025-05-25 13:54 | XMS_ITS | Encounter Summary ---
Author Organization [facility] Address [address] [place] [address] Phone Care Team Providers Care Windows And Doors Installer Name Role Phone Kashif Ly MD Primary Care Provider Self-Referred, Patient Unavailable Unavailab Chinmay Bear [facility] Unavailable Carlos Mi MD Unavailable Ean Klein MD Unavailable Encounter Details Date Type Department Care Team (Late st Contact Info) Description 09/03/2023 Ancillary Orders Outside Imaging Chinmay Rg, [facility] [address] [place] [address] [email or web address] U Social History Tobacco Use Types Packs/Day [...] on filedocumented in this encounter Care Teams Windows And Doors Installer Relationship Specialty Start Date End Date Kashif Ly MD [address] [place] [address] [place] [address] PCP - General Internal Medicine 09/02/23 Self-Referred, Patient 09/02/23 Chinmay Rg [facility] [address] [place] [phone] [email or web address] Medical Oncology 09/02/23 Carlos Mi MD [address] [place] [phone] Urology 09/03/23 Ean Klein MD [address] [place] [phone] 09/03/23 documented as of this encounter Additional Source Comments The information contained in this document represents components of the legal health record. It is not the complete legal health record.[facility]
--- OUTSIDE RECORDS SUMMARY | 2025-05-25 13:54 | XMS_ITS | Clinical Summary ---
Author Organization [facility] Address [address] [place] [address] Phone Care Team Providers Care Teletypewriter Installer Name Role Phone Unavailable Primary Care Provider Unavailabl e Encounters Date Type Department Care Team Description 04/13/2025 1:40 PM EDT - 04/13/2025 11:59 PM EDT Hospital Encounter [facility] PET Scan [address] [place] [address] Prostate cancer (CMS/[facility] V24, CMS/[facility] V28) Discharge Disposition: Home or [...] Routine 04/13/2025 6:32 PM EDT Prostate cancer ([facility] V24, [facility] V28) from Last 3 Months [...] Signed Date: 04/18/2025 10:38 ET Workstation ID: [id number] Transcribed By: Self Edit Transcribed Date: 04/18/2025 [...] not designed to produce and cannot replace opjmd-ny-xfb-art true diagnostic CT examination with specific protocols. [...] CT not designed toproduce and cannot replace qckos-ek-rns-art true diagnostic CT examinationwith specific protocols. Standardized [...] Signed Date: 04/18/2025 10:38 ET Workstation ID: [id number] Transcribed By: Self Edit Transcribed Date: 04/18/2025 06:23 ET Renée Klein MD IMG NM PROCEDURES Final Result from Last 3 Months Insurance MEDICARE [facility]
--- OUTSIDE RECORDS SUMMARY | 2025-05-25 13:54 | XMS_ITS | Clinical Summary ---
Author Organization [facility] Address [address] [place] [address] Phone Care Team Providers Care Property Staff Accountant Name Role Phone Kashif Ly MD Primary Care Provider Self-Referred, Patient Unavailable Unavailab Chinmay Bear [facility] Unavailable [phone] Carlos Mi MD Unavailable Ean Klein MD Unavailable [phone] Allergies No known active allergies Medications bicalutamide [...] file Insurance MEDICARE PART A & B [employer] MEDICARE SUPPLEMENT MEDICARE PART A & B [employer] MEDICARE SUPPLEMENT MEDICARE PART A & B [employer] MEDICARE SUPPLEMENT MEDICARE PART A & B [employer] MEDICARE SUPPLEMENT MEDICARE PART A & B [facility] EX[employer]ENSION MEDICARE SUPPLEMENT MEDICARE PART A & B [facility] [employer] MEDICARE SUPPLEMENT Care Teams Property Staff Accountant Relationship Specialty Start Date End Date Kashif Ly MD [address] [place] [address] [address] PCP - General Internal Medicine 09/02/23 Self-Referred, Patient 09/02/[address] [facility] [address] [place] [phone] [email or web address] Medical Oncology 09/02/23 Carlos Mi MD [address] [place] [phone] Urology 09/03/23 Ean Klein MD [address] [place] [phone] 09/03/23 Additional Source Comments The information contained in this document represents components of the legal health record. It is not the complete legal health record.[facility]
--- OUTSIDE RECORDS SUMMARY | 2025-05-25 13:54 | XMS_ITS | Encounter Summary ---
Author Organization [facility] Address [address] [place] [address] Phone Care Team Providers Care Security Orderly Name Role Phone Kashif Ly MD Primary Care Provider Self-Referred, Patient Unavailable Unavailab Chinmay Bear [facility] Unavailable Carlos Mi MD Unavailable Ean Klein MD Unavailable Encounter Details Date Type Department Care Team (Late st Contact Info) Description 09/03/2023 Ancillary Orders Outside Imaging Chinmay Rg, [facility] [address] [place] [address] [email or web address] U Social History Tobacco Use Types Packs/Day [...] on filedocumented in this encounter Care Teams Security Orderly Relationship Specialty Start Date End Date Kashif Ly MD [address] [place] [address] [place] [address] PCP - General Internal Medicine 09/02/23 Self-Referred, Patient 09/02/23 Chinmay Rg [facility] [address] [place] [phone] [email or web address] Medical Oncology 09/02/23 Carlos Mi MD [address] [place] [phone] Urology 09/03/23 Ean Klein MD [address] [place] [phone] 09/03/23 documented as of this encounter Additional Source Comments The information contained in this document represents components of the legal health record. It is not the complete legal health record.[facility]
--- OUTSIDE RECORDS SUMMARY | 2025-05-25 13:54 | XMS_ITS | Encounter Summary ---
Author Organization [facility] Address [address] [place] [address] Phone Care Team Providers Care Auto Design Detailer Name Role Phone Kashif Ly MD Primary Care Provider Self-Referred, Patient Unavailable Unavailab Chinmay Bear [facility] Unavailable Carlos Mi MD Unavailable Ean Klein MD Unavailable Encounter Details Date Type Department Care Team (Late st Contact Info) Description 09/03/2023 Ancillary Orders Outside Imaging Chinmay Rg, [facility] [address] [place] [address] [email or web address] U Social History Tobacco Use Types Packs/Day [...] on filedocumented in this encounter Care Teams Auto Design Detailer Relationship Specialty Start Date End Date Kashif Ly MD [address] [place] [address] [place] [address] PCP - General Internal Medicine 09/02/23 Self-Referred, Patient 09/02/23 Chinmay Rg [facility] [address] [place] [phone] [email or web address] Medical Oncology 09/02/23 Carlos Mi MD [address] [place] [phone] Urology 09/03/23 Ean Klein MD [address] [place] [phone] 09/03/23 documented as of this encounter Additional Source Comments The information contained in this document represents components of the legal health record. It is not the complete legal health record.[facility]
[2025-05-25 14:29] LABS: Troponin-I High Sensitivity 34.0 ng/L (<3.5-35.0)
[2025-05-25 14:52] VITALS: BP 120/58; PULSE 96; RESP 18; O2SAT 94
[2025-05-25 14:56] VITALS: O2SAT 96
[2025-05-25 16:20] LABS: Appearance Urine Clear; Glucose Urine UA Negative (Negative); PH 6.0 (5.0-9.0); Specific Gravity - Urine 1.010 (1.005-1.025); UMIC TRIGGER UACC YES
[2025-05-25 16:23] VITALS: BP 120/58; PULSE 96; RESP 18; TEMP 36.8; O2SAT 96
== END 2025-05-25 16:23 | disposition home or self-care (01) ==
PROVIDERS: Physician Assistant Medical; Emergency Provider Emergency Medicine; PCP Internal Medicine
DX: E86.0 Dehydration (principal); R53.1 Weakness; R55 Syncope and collapse; C61 Malignant neoplasm of prostate; C79.51 Secondary malignant neoplasm of bone; Z03.818 Encounter for observation for suspected exposure to other biological agents ruled out
CPT/HCPCS: 36415; 71046; 80053; 81001; 83735; 84484; 85025; 85610; 87502; 87635; 93005; 96360; 96361; 99284; 99285

== ENCOUNTER → 2025-05-25 12:39 | Outpatient (BNV) | payer MEDICARE, OTHER, SELFPAY | PROVIDERS: Emergency Provider Emergency Medicine; PCP Internal Medicine; Visit Provider Internal Medicine | DX: R00.0 Tachycardia, unspecified (principal) | CPT/HCPCS: 93010 ==

== ENCOUNTER → 2025-05-25 12:40 | Outpatient (BNV) | payer MEDICARE, OTHER, SELFPAY | PROVIDERS: PCP Internal Medicine; Visit Provider Radiology Diagnostic Radiology | DX: R53.1 Weakness (principal) | CPT/HCPCS: 71046 ==

== ENCOUNTER 2025-06-04 08:56 | Inpatient (IN) | payer MEDICARE, OTHER, SELFPAY ==
[2025-06-04] VITALS (7 sets, daily range): BP systolic 102–136; BP diastolic 59–79; PULSE 99–109; RESP 16–21; TEMP 36.2–36.8; O2SAT 93–95; BMI 22.6; BMI 22.4
--- NOTE | ~2025-06-04 | CT_ITS ---
EXAMINATION: CT ANGIOGRAM CHEST CLINICAL INFORMATION: Cancer. Tachycardia. Hypoxia. COMPARISON: November 01, 2023. TECHNIQUE: Multiple axial images were obtained through the chest after the administration of 55 mL of Omnipaque 350 intravenous contrast. Extensive vascular post-processing including two-dimensional and three-dimensional reformatted images were created and reviewed on an independent workstation. SmartPrep technique. This CT examination was performed using dose optimization techniques as appropriate, variously including the following: *Automated exposure control *Adjustment of mA and/or kV according to patient size (this includes techniques or standardized protocols for targeted exams where dose is matched to indication/reason for exam; i.e. extremities or head) *Use of iterative reconstruction technique DLP: 204 mGy-cm FINDINGS: There is IV contrast enhancement within the main pulmonary artery main branches and subsegmental pulmonary artery branches without gross intraluminal filling defects. No aneurysm or dissection, thoracic aorta. Calcified plaques in the thoracic aorta wall and its main branches and the coronary arteries. Multifocal patchy and confluent pulmonary groundglass and linear attenuation abnormality both lower lung lobes lingula and peribronchial septal thickening, lower lung lobes and lingula. Bilateral small pleural effusions. No pneumothorax.. No hemothorax. No pneumomediastinum. Mild prominent mediastinal lymph nodes. Small trace pericardial effusion. There is a hiatal hernia, moderate volume. Thyroid gland is not enlarged. Multilevel spondylosis without acute fracture or trauma-related listhesis. Bone marrow inhomogeneity. CT/CT angio chest PE protocol IMPRESSION: No acute pulmonary artery emboli. No aneurysm or dissection, thoracic aorta. Concerning multifocal pneumonia and bilateral small pleural effusions. Coronary artery disease and atherosclerosis disease. Hiatal hernia, small to moderate volume. Fleischner guidelines were followed. Electronically signed by: Dao Vivas MD 06/04/2025 12:43 PM EST
--- NOTE | 2025-06-04 09:05 | ED_ITS ---
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 Klein he is taking denosumab and was evaluated at [facility] for palliative external beam radiation therapy on 05/23/2025 but felt not to be a candidate due to no significant bone pain from his metastasis but he did start to Pluvicto for the 1st time on , he presents today with complaint of not feeling well with weakness, poor p.o. intake, dark urine, overall feeling very dehydrated. This was his 1st time with the Pluvicto and he started feeling ill the next day. He does live alone his daughter is very involved in his care and has been they are trying to help him eat and drink but feels like she can not keep up. He denies fevers, he has chronic intermittent low back pain but no other new symptoms. His daughter also notes while she would get him to take a baby aspirin he is not taking his other antiplatelet medication post recent cardiac stents Complaint: generalized weakness Onset (ago): day(s) (2) Duration: progressively worsening Location: generalized Migration: none Severity: moderate Relieving factors: rest Exacerbating factors: movement Context: new medication and recent illness Associated symptoms: loss of appetite and nausea/vomiting Related Data Home Medications ?Medication ?Instructions ?Recorded ?Confirmed aspirin 81 mg chewable tablet 1 tab PO DAILY 06/04/25 06/04/25 omeprazole 20 mg capsule,delayed 20 mg PO DAILY@0630 P RN Acid Reflux 06/04/25 06/04/25 release ondansetron 8 mg disintegrating 8 mg PO Q8H PRN nausea /vomiting 06/04/25 06/04/25 tablet Previous Rx's ?Medication ?Instructions ?Recorded prednisone 5 mg tablet 5 mg PO DAILY #30 tabs 05/08 Allergies Allergy/AdvReac Type Severity Reaction Status Date / Time amoxicillin (From Augmentin) Allergy Severe tongue/facial Verified 06/04/25 09:20 swelling clavulanic acid (From Allergy Severe tongue/facial Verified 06/04/25 09:20 Augmentin) swelling Review of Systems 2 Review of Systems: Constitutional : No Fever, No Chills, positive Fatigue ENT/Mouth : No sore throat, No Rhinorrhea Eyes: No Eye Pain, No Swelling, No Redness Cardiovascular : No Chest Pain, No SOB, No Dyspnea on Exertion Respiratory : No Cough, No Sputum Gastrointestinal : Positive Nausea, positive Vomiting, positive Diarrhea, No abdominal Pain Genitourinary : No Dysuria, No Urinary Frequency, No Hematuria, Musculoskeletal : No joint pain, No Myalgias, No Joint Swelling Skin : No Skin Lesions, No rash Neuro : Positive Weakness, No Numbness, No Dizziness, no Headache All other systems reviewed and are negative PMFSH Past Medical History Attestation statement: The following information was validated with the patient. Source: old records reviewed Medical History Prostate cancer metastatic to bone Hemorrhoids Elevated PSA Surgical History Hx of prostate biopsy Family History Family History Mother No problems noted. Father No problems noted. 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 Oriented X3. No acute distress. Eyes: Pupils equal, round and reactive to light. ENT: Pharynx very dry mucous membrane Neck: Normal inspection. Neck supple. CVS: Normal heart rate and rhythm. Pulses normal. Respiratory: No respiratory distress. Breath sounds diminished in both bases but I do not hear any wheezes or crackles on exam Abdomen: Soft and nontender. Skin: Skin warm and dry. Pale skin color. poor skin turgor. Extremities: No lower extremity edema. Neuro: Oriented X 3. No motor deficit. No sensory deficit. CN2-12 intact Course Course Course Narrative: 12:49 PM 06/04/2025 (JONG ): At this time given CT scan with possible multifocal pneumonia and chemotherapy history I am going to obtain lactic acid, culture, start on IV antibiotics. Infection suspected at 12:49 Medications Administered Discontinued Medications Generic Name Dose Route Start Last Admin Trade Name Freq PRN Reason Stop Dose Admin Lactated Ringer's 1,000 mls @ 999 mls/hr 06/04/25 09:24 06/04/25 11:21 Lr IV 06/04/25 10:24 Infused .Q1H1M ONE Infusion Azithromycin 500 mg/ Sodium 250 mls @ 125 mls/hr 06/04/25 12:48 06/04/25 13:22 Chloride IV 06/04/25 14:47 125 mls/hr ONCE ONE Administration Cefepime HCl 2 gm in 50 mls @ 100 mls/hr 06/04/25 12:58 06/04/25 14:03 Maxipime IV 06/04/25 13:27 Infused ONCE ONE Infusion Iohexol 100 ml 06/04/25 12:25 06/04/25 12:25 Iohexol 350 Mg/Ml 100 Ml Infus..Btl IV 06/04/25 12:26 65 ml ONCE ONE Administration Medical Decision Making Medical Decision Making MDM Narrative: 85-year-old male with past medical history of 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 intake, nonbloody diarrhea, feeling of dehydration, increased fatigue. Has no chest pain/shortness of breath/abdominal pain. He has recurrent intermittent low back pain but no neuro complaints. He has no fever at this time are going to obtain labs, urine, start on IV fluids Differential Diagnosis Differential Diagnoses: The differential diagnosis associated with the presentation includes LIBBY, anemia, dehydration, medication reaction Admission/Observation Consideration of admission/observation: Escalation of care including admission/observation considered Given failure to thrive, weakness, fatigue and poor p.o. intake as well as abnormal CT scan of the chest will admit for further workup Consult Healthcare Provider Management of the patient was discussed with: Hospitalist (Will admit) Lab Data MDM Lab Attestation statement: I reviewed the patient's lab results. Chronic leukocytosis likely from malignancy and prednisone use Elevated troponin but has no chest pain/shortness of breath and has no EKG findings 06/04/25 09:42 06/04/25 09:42 Labs: Lab Results 06/04/25 06/04/25 06/04/25 Range/Units 09:42 09:44 11:33 WBC 19.9 H (4.8-10.8) X10*3/uL RBC 3.93 L (4.60-5.80) X10*6/uL Hgb 11.4 L (14.0-18.0) g/dl Hct 36.1 L (42.0-52.0) % MCV 91.9 (80.0-98.0) fL MCH 29.0 (27.0-33.0) pg MCHC 31.6 (31.0-36.0) g/dl RDW 15.8 (11.0-16.0) % Plt Count 208 (160-400) X10*3/uL MPV 8.9 L (9.4-12.4) fL Immature Gran % (Auto) 4.0 H (0.0-0.4) % Neut % (Auto) 82.2 H (45-73) % Lymph % (Auto) 5.4 L (20-40) % Erie % (Auto) 7.7 (2-11) % Eos % (Auto) 0.5 (0-4) % Baso % (Auto) 0.2 (0-2) % Lymph # (Auto) 1.1 L (1.2-4.9) X10*3/uL Erie # (Auto) 1.5 H (0.1-1.2) X10*3/uL Eos # (Auto) 0.1 (0.0-0.4) X10*3/uL Baso # (Auto) 0.0 (0.0-0.2) X10*3/uL Abs Immat Gran (auto) 0.79 H (0.00-0.03) X10*3/uL Absolute Neuts (auto) 16.4 H (2.0-8.3) x10*3/uL Absolute Nucleated RBC 0.000 (0.0-0.012) X10*3/uL Nucleated RBC % (auto) 0.0 (0.0-0.2) /100WBC Smear Tech's Comments VERIFIED Sodium 135 (135-145) mmol/L Potassium 4.3 (3.3-5.1) mmol/L Chloride 102 (96-108) mmol/L Carbon Dioxide 21 L (22-29) mmol/L Anion Gap 16 (12-20) BUN 18 H (9-16) mg/dL Creatinine 1.00 (0.5-1.4) mg/dL Estim Creat Clear Calc 49.6 Estimated GFR > 60 Random Glucose 109 (60-115) mg/dL Calcium 8.4 (8.4-10.2) mg/dL Magnesium 1.9 (1.6-2.6) mg/dL Total Bilirubin 0.8 (0.0-1.0) mg/dL Direct Bilirubin 0.4 (0.0-0.5) mg/dL AST 74 H (5-37) U/L ALT 24 (0-40) U/L Alkaline Phosphatase 106 (39-117) U/L Total Creatine Kinase 145 (38-174) U/L Troponin I High Sens 61.9 H D 52.7 H (<3.5-35.0) ng/L C-Reactive Protein 18.69 H (< or = 0.50) mg/dL Total Protein 5.9 L (6.5-8.0) g/dL Albumin 3.2 L (3.5-5.0) g/dL Influenza Type A (PCR) NEGATIVE (Negative) Influenza Type B (PCR) NEGATIVE (Negative) RSV RNA Qual (PCR) NEGATIVE (Negative) SARS-CoV-2 RNA (RT-PCR) NEGATIVE (Negative) Independent Interpretation I performed an independent interpretation of an: EKG and CT Scan (Possible multifocal pneumonia as well as small bilateral effusions) Interpretation: Rate: 99 Rhythm: Normal sinus rhythm Interior: Left Normal P waves. Normal GARETT. Normal QRS complex. ST T wave : Inverted T-waves in V4 V5, no ST-elevation, biphasic T-waves noted in V1 V2, no ST-elevation qTC: 497 prior studies: Similar findings and past but more pronounced inverted T-waves in V4 and V5 The study has been interpreted contemporaneously by me. . Radiology Impression Discussion of test interpretation with radiology: I have reviewed the radiologist's reading. Independent Historian Clinical information obtained from an independent historian. History obtained from or confirmed by: Other (Daughter) External Record Review External record reviewed: Inpatient record, Outpatient record, Prior outpatient labs and Prior outpatient radiology Discharge Plan Discharge Clinical Impression: Weakness, Multifocal pneumonia, Acute dehydration, Elevated WBC count Patient Disposition: Admitted As Inpatient
[2025-06-04] MEDS: Lactated Ringers 1,000 ML 999 ML IV (09:47)
[2025-06-04 09:59] LABS: Hematocrit 36.1 % (42.0-52.0); Hemoglobin 11.4 g/dl (14.0-18.0); Imm Gran Abs Auto 0.79 X10*3/uL (0.00-0.03); Imm Gran Pct Auto 4.0 % (0.0-0.4); Lymphocytes Absolute Auto 1.1 X10*3/uL (1.2-4.9); MANUAL DIFF FLAG SCAN; Mean Corpuscular HGB Conc 31.6 g/dl (31.0-36.0); Mean Corpuscular Hemoglobin 29.0 pg (27.0-33.0); Mean Corpuscular Volume 91.9 fL (80.0-98.0); NRBC Abs Auto 0.000 X10*3/uL (0.0-0.012); NRBC Pct Auto 0.0 /100WBC (0.0-0.2); Platelet Count 208 X10*3/uL (160-400); Red Blood Count 3.93 X10*6/uL (4.60-5.80); SCAN SMEAR FLAG 1; White Blood Count 19.9 X10*3/uL (4.8-10.8)
[2025-06-04 10:11] LABS: Alanine Aminotransferase 24 U/L (0-40); Albumin Level 3.2 g/dL (3.5-5.0); Alkaline Phosphatase 106 U/L (39-117); Anion Gap 16 (12-20); Aspartate Amino Transferase 74 U/L (5-37); Blood Urea Nitrogen 18 mg/dL (9-16); Calcium 8.4 mg/dL (8.4-10.2); Carbon Dioxide 21 mmol/L (22-29); Chloride 102 mmol/L (96-108); Creatinine Clr Calc Pharmacy 49.6; Estimated Glomerular Filt Rate > 60; Magnesium 1.9 mg/dL (1.6-2.6); Potassium 4.3 mmol/L (3.3-5.1); Sodium 135 mmol/L (135-145); Total Protein 5.9 g/dL (6.5-8.0)
[2025-06-04 10:18] LABS: Troponin-I High Sensitivity 61.9 ng/L (<3.5-35.0)
--- NOTE | 2025-06-04 10:29 | ECG_ITS ---
Test Reason : WEAKNESS Blood Pressure : */* mmHG Vent. Rate : 99 BPM Atrial Rate : 99 BPM P-R Int : 136 ms QRS Dur : 86 ms QT Int : 388 ms P-R-T Axes : 28 -14 30 degrees QTcB Int : 497 ms Normal sinus rhythm Inferior infarct (cited on or before 25-May-2025) Possible Anterior infarct (cited on or before 25-May-2025) Abnormal ECG When compared with ECG of 25-May-2025 13:22, Questionable change in initial forces of Inferior leads Nonspecific T wave abnormality, worse in Anterior leads T wave inversion less evident in Lateral leads QT has lengthened Referred By: Savanah Josue Electronically Signed By: TOMMY BABCOCK MD
[2025-06-04 10:30] LABS: Resp Syncy Virus RNA Qual PCR NEGATIVE (Negative); SARS COV2 PCR INHOUSE NEGATIVE (Negative)
--- OUTSIDE RECORDS SUMMARY | 2025-06-04 11:25 | XMS_ITS | Clinical Summary ---
Author Organization [facility] Address [address] [place] [address] Phone Care Team Providers Care Crank Hand Name Role Phone Unavailable Primary Care Provider Unavailabl e Encounters Date Type Department Care Team Description 04/13/2025 1:40 PM EDT - 04/13/2025 11:59 PM EDT Hospital Encounter [facility] PET Scan [address] [place] [address] Prostate cancer (CMS/HCC V24, CMS/[facility] V28) Discharge Disposition: Home or Self Care [...] Routine 04/13/2025 6:32 PM EDT Prostate cancer ([facility] V24, [facility] V28) from Last 3 Months Results * [...] Signed Date: 04/18/2025 10:38 ET Workstation ID: [id number] Transcribed By: Self Edit Transcribed Date: 04/18/2025 [...] not designed to produce and cannot replace ndpyr-al-fvo-art true diagnostic CT examination with specific protocols. [...] CT not designed toproduce and cannot replace biaqc-fq-inw-art true diagnostic CT examinationwith specific protocols. Standardized [...] Signed Date: 04/18/2025 10:38 ET Workstation ID: [id number] Transcribed By: Self Edit Transcribed Date: 04/18/2025 06:23 ET Renée Klein MD IMG NM PROCEDURES Final Result from Last 3 Months Insurance MEDICARE [facility]
--- OUTSIDE RECORDS SUMMARY | 2025-06-04 11:25 | XMS_ITS | Clinical Summary ---
Author Organization [facility] Address [address] [place] [address] Phone Care Team Providers Care Manager Ecommerce Name Role Phone Kashif Ly MD Primary Care Provider Self-Referred, Patient Unavailable Unavailab Chinmay Bear [facility] Unavailable Carlos Mi MD Unavailable Ean [...] file Insurance MEDICARE PART A & B [employer] MEDICARE SUPPLEMENT MEDICARE PART A & B [employer] MEDICARE SUPPLEMENT MEDICARE PART A & B [employer] MEDICARE SUPPLEMENT MEDICARE PART A & B [employer] MEDICARE SUPPLEMENT MEDICARE PART A & B [facility] [employer] MEDICARE SUPPLEMENT MEDICARE PART A & B [facility] [employer] MEDICARE SUPPLEMENT Care Teams Manager Ecommerce Relationship Specialty Start Date End Date Kashif Ly MD [address] [place] [address] [address] PCP - General Internal Medicine 09/02/23 Self-Referred, Patient 09/02/[address] [facility] [address] [place] [phone] [email or web address] Medical Oncology 09/02/23 Carlos Mi MD [address] [place] [phone] Urology 09/03/23 Ena Klein MD [address] [place] [phone] 09/03/23 Additional Source Comments The information contained in this document represents components of the legal health record. It is not the complete legal health record.[facility]
--- OUTSIDE RECORDS SUMMARY | 2025-06-04 11:25 | XMS_ITS | Encounter Summary ---
Author Organization [facility] Address [address] [place] [address] Phone Care Team Providers Care Clinical Informatics Physician Name Role Phone Kashif Ly MD Primary Care Provider Self-Referred, Patient Unavailable Unavailab Chinmay Bear [facility] Unavailable Carlos Mi MD Unavailable Ean Klein MD Unavailable Encounter Details Date Type Department Care Team (Late st Contact Info) Description 09/03/2023 Ancillary Orders Outside Imaging Chinmay Rg, [facility] [address] [place] [address] [email or web address]. U Social History Tobacco Use Types Packs/Day [...] on filedocumented in this encounter Care Teams Clinical Informatics Physician Relationship Specialty Start Date End Date Kashif Ly MD [address] [place] [address] [place] [address] PCP - General Internal Medicine 09/02/23 Self-Referred, Patient 09/02/23 Chinmay Rg [facility] [address] [place] [phone] [email or web address] Medical Oncology 09/02/23 Carlos Mi MD [address] [place] [phone] Urology 09/03/23 Ean Klein MD [address] [place] [phone] 09/03/23 documented as of this encounter Additional Source Comments The information contained in this document represents components of the legal health record. It is not the complete legal health record.[facility]
--- OUTSIDE RECORDS SUMMARY | 2025-06-04 11:25 | XMS_ITS | Encounter Summary ---
Author Organization [facility] Address [address] [place] [address] Phone Care Team Providers Care Business Process Expert Name Role Phone Kashif Ly MD Primary Care Provider Self-Referred, Patient Unavailable Unavailab Chinmay Bear [facility] Unavailable [phone] Carlos Mi MD Unavailable Ean Klein MD Unavailable Encounter Details Date Type Department Care Team (Late st Contact Info) Description 09/03/2023 Ancillary Orders Outside Imaging Chinmay Rg, [facility] [address] [place] [address] [email or web address]. U Social History Tobacco Use Types Packs/Day [...] on filedocumented in this encounter Care Teams Business Process Expert Relationship Specialty Start Date End Date Kashif Ly MD [address] [place] [address] [place] [address] PCP - General Internal Medicine 09/02/23 Self-Referred, Patient 09/02/23 Chinmay Rg [facility] [address] [place] [phone] [email or web address] [email or web address] AT THE [facility] Medical Oncology 09/02/23 Carlos Mi MD [address] [place] [phone] Urology 09/03/23 Ean Klein MD [address] [place] [phone] 09/03/23 documented as of this encounter Additional Source Comments The information contained in this document represents components of the legal health record. It is not the complete legal health record.[facility]
--- OUTSIDE RECORDS SUMMARY | 2025-06-04 11:25 | XMS_ITS | Encounter Summary ---
Author Organization [facility] Address [address] [place] [address] Phone Care Team Providers Care Sales Developer Name Role Phone Kashif Ly MD Primary Care Provider Self-Referred, Patient Unavailable Unavailab Chinmay Bear [facility] Unavailable [phone] Carlos Mi MD Unavailable Ean Klein MD Unavailable Encounter Details Date Type Department Care Team (Late st Contact Info) Description 09/03/2023 Ancillary Orders Outside Imaging Chinmay Rg, [facility] [address] [place] [address] [email or web address]. U Social History Tobacco Use Types Packs/Day [...] on filedocumented in this encounter Care Teams Sales Developer Relationship Specialty Start Date End Date Kashif Ly MD [address] [place] [address] [place] [address] PCP - General Internal Medicine 09/02/23 Self-Referred, Patient 09/02/23 Chinmay Rg [facility] [address] [place] [phone] [email or web address] Medical Oncology 09/02/23 Carlos Mi MD [address] [place] [phone] Urology 09/03/23 Ean Klein MD [address] [place] [phone] 09/03/23 documented as of this encounter Additional Source Comments The information contained in this document represents components of the legal health record. It is not the complete legal health record.[facility]
[2025-06-04 12:07] LABS: Troponin-I High Sensitivity 52.7 ng/L (<3.5-35.0)
[2025-06-04] MEDS: iohexoL 350 MG/ML 100 ML INFUS..BTL IV (12:25)
[2025-06-04] MEDS: cefEPime HCl/D5W 2 GM/50 ML PIGGYBACK IV (13:21)
[2025-06-04 13:28] LABS: Appearance Urine Clear; Glucose Urine UA Negative (Negative); PH 5.5 (5.0-9.0); Specific Gravity - Urine 1.015 (1.005-1.025)
--- NOTE | 2025-06-04 13:28 | PM.IMHP ---
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 Klein, NSVT, orthostatic syncope, HTN, and coronary artery disease status post stents who presents to the ED with?generalized weakness and fatigue x3 days. Pt received last session of chemotherapy on Wednesday, and then on Wednesday pt reports ?feeling bad? and was fatigued and generally weak. Pt essentially stayed in bed for the next 2 days before his daughter convinced him to come to the ED for further evaluation. Had very little appetite and some lightheadedness and nausea but no vomiting. No significant abdominal pain or diarrhea. Denies any cold-like symptoms; no SOB or cough. In the ED pt's vitals were significant for tachycardia 105, tachypneic 21, BP largely normotensive. No hypoxia. Labs were significant for WBCs 19.9, H&H 11.4/36.1, troponin 61.9 with repeat flat at 52.7, CRP 18.69, and lactic acid 2.5. CTA of chest negative for PE but showed multifocal pneumonia and bilateral small pleural effusions. ?Pt was treated in the ED with IVF, cefepime, and azithromycin. Pt is admitted to the hospital for treatment and further evaluation of multifocal pneumonia with sepsis in the setting of immunocompromised pt. Review of Systems Review of Systems: Negative except for that which is stated in the [facility] Medical History Prostate cancer metastatic to bone Hemorrhoids Elevated PSA Family History Mother No problems noted. Father No problems noted. 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 Cognitive needs: No Hearing needs: No (pt throw them away, he's not using them ) Vision needs: Yes (rx ) Meds Allergies Allergy/AdvReac Type Severity Reaction Status Date / Time amoxicillin (From Augmentin) Allergy Severe tongue/facial Verified 06/04/25 09:20 swelling clavulanic acid (From Allergy Severe tongue/facial Verified 06/04/25 09:20 Augmentin) swelling Active Medications: Current Medications Azithromycin 500 mg/ Sodium (Chloride) 250 mls @ 125 mls/hr IV ONCE ONE Stop: 06/04/25 14:47 Last Admin: 06/04/25 13:22 Dose: 125 mls/hr Home Medications ?Medication ?Instructions ?Recorded ?Confirmed ?Last Taken ?Type aspirin 81 mg chewable tablet 1 tab PO DAILY 06/04/25 06/04/25 06/04/25 History omeprazole 20 mg capsule,delayed 20 mg PO DAILY@0630 PRN Acid Reflux 06/04/25 06/04/25 Unknown History release ondansetron 8 mg disintegrating 8 mg PO Q8H PRN nausea/vomiting 06/04/25 06/04/25 Unknown History tablet Physical Exam Vital Signs and Narrative: Vital Signs: Last Vital Signs Temp 98.2 F 06/04/25 11:59 Pulse 101 H 06/04/25 13:24 Resp 16 06/04/25 13:24 BP 132/79 06/04/25 13:24 Pulse Ox 94 06/04/25 13:24 O2 Del Method Room Air 06/04/25 13:24 BMI result Body Mass Index 22.6 Results Labs 06/04/25 09:42 06/04/25 09:42 Labs: Laboratory Results - last 24 hr 06/04/25 06/04/25 06/04/25 09:42 09:44 11:33 MCV 91.9 MCH 29.0 MCHC 31.6 RDW 15.8 Plt Count 208 MPV 8.9 L Immature Gran % (Auto) 4.0 H Neut % (Auto) 82.2 H Lymph % (Auto) 5.4 L [place] % (Auto) 7.7 Eos % (Auto) 0.5 Baso % (Auto) 0.2 Lymph # (Auto) 1.1 L [place] # (Auto) 1.5 H Eos # (Auto) 0.1 Baso # (Auto) 0.0 Abs Immat Gran (auto) 0.79 H Absolute Neuts (auto) 16.4 H Absolute Nucleated RBC 0.000 Nucleated RBC % (auto) 0.0 Smear Tech's Comments VERIFIED Anion Gap 16 Estim Creat Clear Calc 49.6 Estimated GFR > 60 Random Glucose 109 Calcium 8.4 Magnesium 1.9 Total Bilirubin 0.8 Direct Bilirubin 0.4 AST 74 H ALT 24 Alkaline Phosphatase 106 Total Creatine Kinase 145 Troponin I High Sens 61.9 H D 52.7 H C-Reactive Protein 18.69 H Total Protein 5.9 L Albumin 3.2 L Influenza Type A (PCR) NEGATIVE Influenza Type B (PCR) NEGATIVE RSV RNA Qual (PCR) NEGATIVE SARS-CoV-2 RNA (RT-PCR) NEGATIVE Imaging Radiologist's Impressions: Impressions Chest CTA 06/04/25 12:13 IMPRESSION: No acute pulmonary artery emboli. No aneurysm or dissection, thoracic aorta. Concerning multifocal pneumonia and bilateral small pleural effusions. Coronary artery disease and atherosclerosis disease. Hiatal hernia, small to moderate volume. Fleischner guidelines were followed. 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 Klein, NSVT, orthostatic syncope, HTN, and coronary artery disease status post stents who presents to the ED with?generalized weakness and fatigue x3 days. Pt is admitted to the hospital for treatment and further evaluation of multifocal pneumonia in the setting of immunocompromised pt. Multifocal pneumonia As seen on CTA No sepsis: Tachycardia from hypovolemia, chronic leukocytosis Continue azithromycin and cefepime, started 06/04 Monitor respiratory Elevated troponins Initial troponin 61.9 with repeat flat at 52.7 Likely type 2 in the setting of increased demand Pt asymptomatic, EKG nonischemic Acute lactic acidosis Lactic acid 2.5 with repeat 2.3 after IVF Secondary to hypovolemia from reduced p.o. intake, not sepsis Pt resuscitated with IVF Generalized weakness Likely multifactorial: In the setting of multifocal pneumonia and recent chemotherapy PT consult Prostate cancer with metastasis to bone Heme-Onc consult, follows with Dr. Klein Continue chronic prednisone CAD Aspirin GERD Omeprazole Full Code Attending:?Dr. Zamora DVT Prophylaxis: Lovenox Pt will require a hospitalization of at least two nights for treatment of?multifocal pneumonia in the setting immunocompromised pt that will require IV antibiotics and close monitoring. Quality Stroke Does the patient have a stroke diagnosis?: No VTE Prior VTE?: No VTE Risk Level:: Medical - moderate - high VTE Device Contraindication: Treatment Not Indicated VTE Drug Contraindication: N/A - Med Ordered
--- NOTE | 2025-06-04 14:11 | PHA.MEDREC ---
Addendum entered by Dick Rutherford, PharmD 06/04/25 14:23: MED REC CHECKED BY [facility] Original Note: Pharmacy Consult ? Medication Reconciliation Pharmacy has completed the medication reconciliation. Spoke to patient daughter at bedside to confirm med list. Daughter patient refuses to take Atorvastatin 80 mg, Carvedilol 3.125 mg, Plavix 75 mg, Losartan 25 mg, and Ticagrelor 90 mg. Patient had the Prednisone 5 mg today.
--- NOTE | 2025-06-04 14:11 | PC.NURSE ---
Assumed care of pt. Denies any pain, discomfort at this time. Aware of plan for admission. IV abx running. VS remain stable, no evidence of resp distress.
[2025-06-04 15:24] LABS: Reflex Lactate? Lactic Acid Added
[2025-06-04 16:15] LABS: ~Lactic Acid-LAB USE ONLY 2.3 mmol/L (0.5-2.0)
[2025-06-04 17:55] LABS: Reflex Lactate? 2 Y
[2025-06-04 18:29] LABS: Cancel Lactic Acid Canceled
[2025-06-04 18:33] LABS: Procalcitonin 0.49 ng/mL
--- NOTE | 2025-06-04 19:22 | HO.NURTONUR ---
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 Klein, NSVT, orthostatic syncope, HTN, and coronary artery disease status post stents who presents to the ED with?generalized weakness and fatigue x3 days. Pt received last session of chemotherapy on Wednesday, and then on Wednesday pt reports ?feeling bad? and was fatigued and generally weak. Pt essentially stayed in bed for the next 2 days before his daughter convinced him to come to the ED for further evaluation. Had very little appetite and some lightheadedness and nausea but no vomiting. No significant abdominal pain or diarrhea. Denies any cold-like symptoms; no SOB or cough. In the ED pt's vitals were significant for tachycardia 105, tachypneic 21, BP largely normotensive. No hypoxia. Labs were significant for WBCs 19.9, H&H 11.4/36.1, troponin 61.9 with repeat flat at 52.7, CRP 18.69, and lactic acid 2.5. CTA of chest negative for PE but showed multifocal pneumonia and bilateral small pleural effusions. ?Pt was treated in the ED with IVF, cefepime, and azithromycin. Pt is admitted to the hospital for treatment and further evaluation of multifocal pneumonia with sepsis in the setting of immunocompromised pt. Plan: Pt is admitted to the hospital for treatment and further evaluation of multifocal pneumonia in the setting of immunocompromised pt. Continue azithromycin and cefepime Monitor respiratory PT consult Heme-Onc consult, follows with Dr. Klein Continue chronic prednisone Pt will require a hospitalization of at least two nights for treatment of?multifocal pneumonia in the setting immunocompromised pt that will require IV antibiotics and close monitoring.
[2025-06-04] MEDS: 0.9 % Sodium Chloride Flush 3 ML SYRINGE IVFLUSH (23:12)
[2025-06-05 04:00] VITALS: BP 123/65; PULSE 100; RESP 18; TEMP 36.9; O2SAT 93
[2025-06-05 06:40] LABS: Hematocrit 32.9 % (42.0-52.0); Hemoglobin 10.8 g/dl (14.0-18.0); Mean Corpuscular HGB Conc 32.8 g/dl (31.0-36.0); Mean Corpuscular Hemoglobin 29.7 pg (27.0-33.0); Mean Corpuscular Volume 90.4 fL (80.0-98.0); NRBC Abs Auto 0.000 X10*3/uL (0.0-0.012); NRBC Pct Auto 0.0 /100WBC (0.0-0.2); Platelet Count 216 X10*3/uL (160-400); Red Blood Count 3.64 X10*6/uL (4.60-5.80); White Blood Count 15.5 X10*3/uL (4.8-10.8)
[2025-06-05 07:17] LABS: Anion Gap 16 (12-20); Blood Urea Nitrogen 18 mg/dL (9-16); Calcium 8.0 mg/dL (8.4-10.2); Carbon Dioxide 21 mmol/L (22-29); Chloride 104 mmol/L (96-108); Creatinine Clr Calc Pharmacy 59.8; Estimated Glomerular Filt Rate > 60; Potassium 3.7 mmol/L (3.3-5.1); Sodium 137 mmol/L (135-145)
[2025-06-05 07:58] VITALS: BP 113/65; PULSE 111; RESP 14; TEMP 36.7; O2SAT 92
[2025-06-05] MEDS: 0.9 % Sodium Chloride Flush 3 ML SYRINGE IVFLUSH ×2 (08:03→18:13)
--- NOTE | 2025-06-05 09:08 | P.PNIM_ITS ---
Subjective Subjective Date of Service: 06/05/25 Interval History: weakness Physical Exam 2 Exam: Exam: General: AO X 3, frail Resp: CTA bilateral, no accessory muscles used CVS: S1,S2,RRR GI: soft, non tender, non distended Neuro: motor grossly intact, alert Psych: appropriate affect, appropriate insight Vital Signs: Vital Signs: Last Vital Signs Temp 98.0 F 06/05/25 07:58 Pulse 111 H 06/05/25 07:58 Resp 14 06/05/25 07:58 BP 113/65 06/05/25 07:58 Pulse Ox 92 06/05/25 07:58 O2 Del Method Room Air 06/05/25 07:58 BMI result Body Mass Index 22.4 Objective Data Active Medications Acetaminophen (Acetaminophen 325 Mg Tablet) 650 mg PO Q6H PRN PRN Reason: Pain, Mild 1-3,fever,headache Aspirin (Aspirin 81 Mg Tab.Chew) 81 mg PO DAILY [facility] Last Admin: 06/05/25 08:01 Dose: 81 mg Documented By: JUDSON Calcium Carbonate (Calcium Carbonate 750 Mg Tab.Chew) 750 mg PO Q4H PRN PRN Reason: Heartburn Enoxaparin Sodium (Enoxaparin Sodium 40 Mg/0.4 Ml Syringe) 40 mg SUBCUT Q24H [facility] Last Admin: 06/04/25 18:51 Dose: 40 mg Documented By: ELE Azithromycin 500 mg/ Sodium (Chloride) 250 mls @ 125 mls/hr IV Q24H [place] Cefepime HCl (Maxipime) 2 gm in 50 mls @ 100 mls/hr IV Q12H [place] Magnesium Hydroxide (Milk Of Magnesia 30 Ml Oral.Susp) 30 ml PO DAILY PRN PRN Reason: Constipation Melatonin (Melatonin 3 Mg Tablet) 6 mg PO BEDTIME PRN PRN Reason: Insomnia Omeprazole (Omeprazole 20 Mg Capsule.Dr) 20 mg PO DAILY@0630 PRN PRN Reason: Acid Reflux Ondansetron HCl (Ondansetron Hcl 4 Mg/2 Ml Vial) 4 mg IVPUSH Q8H PRN PRN Reason: Nausea and Vomiting Prednisone (Prednisone 5 Mg Tablet) 5 mg PO DAILY [facility] Last Admin: 06/05/25 08:01 Dose: 5 mg Documented By: JUDSON Sodium Chloride (0.9 % Sodium Chloride Flush 3 Ml Syringe) 3 ml IVFLUSH QSHIFT [facility] Last Admin: 06/05/25 08:03 Dose: 3 ml Documented By: JUDSON Labs 06/05/25 05:55 06/05/25 05:55 Labs: Laboratory Results - last 24 hr 06/04/25 06/04/25 06/04/25 09:42 09:44 11:33 MCV 91.9 MCH 29.0 MCHC 31.6 RDW 15.8 Plt Count 208 MPV 8.9 L Immature Gran % (Auto) 4.0 H Neut % (Auto) 82.2 H Lymph % (Auto) 5.4 L [place] % (Auto) 7.7 Eos % (Auto) 0.5 Baso % (Auto) 0.2 Lymph # (Auto) 1.1 L [place] # (Auto) 1.5 H Eos # (Auto) 0.1 Baso # (Auto) 0.0 Abs Immat Gran (auto) 0.79 H Absolute Neuts (auto) 16.4 H Absolute Nucleated RBC 0.000 Nucleated RBC % (auto) 0.0 Smear Tech's Comments VERIFIED Anion Gap 16 Estim Creat Clear Calc 49.6 Estimated GFR > 60 Random Glucose 109 Lactic Acid Lactic Acid F/U @ 2Hr Calcium 8.4 Magnesium 1.9 Total Bilirubin 0.8 Direct Bilirubin 0.4 AST 74 H ALT 24 Alkaline Phosphatase 106 Total Creatine Kinase 145 Troponin I High Sens 61.9 H D 52.7 H C-Reactive Protein 18.69 H Total Protein 5.9 L Albumin 3.2 L Procalcitonin 0.49 Urine Color Urine Appearance Urine pH Ur Specific [place] Urine Protein Urine Glucose (UA) Urine Ketones Urine Blood Urine Nitrite Ur Leukocyte Esterase Influenza Type A (PCR) NEGATIVE Influenza Type B (PCR) NEGATIVE RSV RNA Qual (PCR) NEGATIVE SARS-CoV-2 RNA (RT-PCR) NEGATIVE 06/04/25 06/04/25 06/05/25 13:19 15:53 05:55 MCV 90.4 MCH 29.7 MCHC 32.8 RDW 15.4 Plt Count 216 MPV 8.9 L Immature Gran % (Auto) Neut % (Auto) Lymph % (Auto) [place] % (Auto) Eos % (Auto) Baso % (Auto) Lymph # (Auto) [place] # (Auto) Eos # (Auto) Baso # (Auto) Abs Immat Gran (auto) Absolute Neuts (auto) Absolute Nucleated RBC 0.000 Nucleated RBC % (auto) 0.0 Smear Tech's Comments Anion Gap 16 Estim Creat Clear Calc 59.8 Estimated GFR > 60 Random Glucose 101 Lactic Acid 2.5 H* Lactic Acid F/U @ 2Hr 2.3 H* Calcium 8.0 L Magnesium Total Bilirubin Direct Bilirubin AST ALT Alkaline Phosphatase Total Creatine Kinase Troponin I High Sens C-Reactive Protein Total Protein Albumin Procalcitonin Urine Color Yellow Urine Appearance Clear Urine pH 5.5 Ur Specific [place] 1.015 Urine Protein Trace Urine Glucose (UA) Negative Urine Ketones Trace Urine Blood Negative Urine Nitrite Negative Ur Leukocyte Esterase Negative Influenza Type A (PCR) Influenza Type B (PCR) RSV RNA Qual (PCR) SARS-CoV-2 RNA (RT-PCR) Assessment and Plan (1) Cardiomyopathy: Status: Acute Plan 85M PMH metastatic prostate cancer with bone mets, NSVT, orthostatic syncope, htn, CAD s/p stents, presented with weakness multifocal pna cefepime, azithro, follow up cultures Elevated troponin Likely demand ischemia, no ACS Acute lactic acidosis Not due to sepsis Generalized weakness Due to pneumonia and cancer, PT Metastatic prostate cancer Follow up Oncology, continue prednisone Coronary artery disease Aspirin GERD PPI DVT prophylaxis Lovenox DNR/DNI reason for continued hospitalization: Awaiting cultures Quality Stroke Does the patient have a stroke diagnosis?: No VTE Prior VTE?: No VTE Risk Level:: Medical - moderate - high VTE Device Contraindication: Treatment Not Indicated VTE Drug Contraindication: N/A - Med Ordered
--- NOTE | 2025-06-05 12:06 | MHC.CM.PN ---
PT LIVES ALONE PT DRIVES WILL BE GOING HOME RECEOMMENDED BY PT WITH A [facility] PT HAS OWN TRANSPORT HOME
--- NOTE | 2025-06-05 13:44 | PM.HEMONCCN ---
Subjective - Subjective Chief complaint: Consult for: Prostate cancer with bone Mets. Patient: known to practice within the last 3 years Consult date: 06/05/25 Requesting Physician: Noah. 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 Narrative: Harshad Salguero is a 85 year old gentleman, admitted yesterday with multi lobar pneumonia. 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 Pt received his first dose of Pluvicto on Wednesday at [facility]. He later did not feel well. He felt fatigued and weak. He stayed in bed for the next 2 days before his daughter Lori convinced him to come to the Hospital for further evaluation. He had very little appetite. Had dizziness and nausea but no vomiting. No significant abdominal pain or diarrhea. Denies any cold-like symptoms; no SOB or cough. Here, vitals were significant for tachycardia 105, tachypneic 21, BP largely normotensive. No hypoxia. Labs were significant for WBCs 19.9, H&H 11.4/36.1, troponin 61.9 with repeat flat at 52.7, CRP 18.69, and lactic acid 2.5. CTA of chest negative for PE but showed multifocal pneumonia and bilateral small pleural effusions. He was treated in the ED with IVF, cefepime, and azithromycin. He was admitted to the hospital for further evaluation and management of multifocal pneumonia with sepsis in the setting of immunocompromised pt. Medical History: NSVT, orthostatic syncope, HTN, and coronary artery disease status post stents. Prostate cancer metastatic to bone. Became refractory to chemotherapy. Most recently started on Pluvicto. Hemorrhoids Surgical History: Hx of prostate biopsy Family History: Mother No problems noted. Father No problems noted. Social History:) He is . Has one daughter. Household Members: None Housing: House Are you a primary rn transitional care to a significant other at home: No Do you presently have visiting nurse or other home services: No Patient Tobacco Use Status: Never used Tobacco Smoked in Last 30 Days: No e-Cigarette/Vaping Use: Never Used Use of substances other than those prescribed or required for medical reasons: No Review of Systems - Constitutional Reports system reviewed and no additional complaints, except as documented, Reports fatigue, Reports lack of energy, Reports malaise, Reports poor appetite, Reports weight loss - Eyes Reports system reviewed and no additional complaints, except as documented - ENT Reports system reviewed and no additional complaints, except as documented - Cardiovascular Reports system reviewed and no additional complaints, except as documented - Respiratory Reports no additional respiratory complaints - Gastrointestinal Reports system reviewed and no additional complaints, except as documented - Genitourinary Genitourinary: Reports no additional male genitourinary complaints - Musculoskeletal Reports system reviewed and no additional complaints, except as documented - Integumentary/Breasts Skin/Breast: Reports no additional skin complaints - Neurologic Reports system reviewed and no additional complaints, except as documented - Psychiatric Reports system reviewed and no additional complaints, except as documented - Endocrine Reports no additional endocrine complaints - Hematologic/Lymphatic Reports system reviewed and no additional complaints, except as documented - Allergic/Immunologic Reports system reviewed and no additional complaints, except as documented PMF Medical History: Medical History (Last Reviewed 06/04/25 @ 09:08 by Savanah Josue DO) Elevated PSA Hemorrhoids Prostate cancer metastatic to bone Functional capacity: uses cane/walker Patient : No Family History: Family History (Last Reviewed 05/25/25 @ 16:02 by SOCO Quinones) Mother No problems noted. Father No problems noted. Surgical History: Surgical History (Last Reviewed 06/04/25 @ 09:08 by Savanah Josue DO) Hx of prostate biopsy Social History: Social History (Last Reviewed 06/04/25 @ 09:08 by Savanah Josue DO) Living Situation History: Household Members: None Housing: House Are you a primary rn transitional care to a significant other at home: No Do you presently have visiting nurse or other home services: No Tobacco History: Patient Tobacco Use Status: Never used Tobacco e-Cigarette/Vaping Use: Never Used Advance Directives: Advance Directives Date on File: 06/25/24 Occupation Assessmet: service: No 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 Home Medications and Allergies Current Medications: Current Medications Acetaminophen (Acetaminophen 325 Mg Tablet) 650 mg PO Q6H PRN PRN Reason: Pain, Mild 1-3,fever,headache Aspirin (Aspirin 81 Mg Tab.Chew) 81 mg PO DAILY [facility] Last Admin: 06/05/25 08:01 Dose: 81 mg Calcium Carbonate (Calcium Carbonate 750 Mg Tab.Chew) 750 mg PO Q4H PRN PRN Reason: Heartburn Enoxaparin Sodium (Enoxaparin Sodium 40 Mg/0.4 Ml Syringe) 40 mg SUBCUT Q24H [facility] Last Admin: 06/04/25 18:51 Dose: 40 mg Azithromycin 500 mg/ Sodium (Chloride) 250 mls @ 125 mls/hr IV Q24H [facility] Last Admin: 06/05/25 13:08 Dose: 125 mls/hr Cefepime HCl (Maxipime) 2 gm in 50 mls @ 100 mls/hr IV Q12H [facility] Magnesium Hydroxide (Milk Of Magnesia 30 Ml Oral.Susp) 30 ml PO DAILY PRN PRN Reason: Constipation Melatonin (Melatonin 3 Mg Tablet) 6 mg PO BEDTIME PRN PRN Reason: Insomnia Omeprazole (Omeprazole 20 Mg Capsule.Dr) 20 mg PO DAILY@0630 PRN PRN Reason: Acid Reflux Ondansetron HCl (Ondansetron Hcl 4 Mg/2 Ml Vial) 4 mg IVPUSH Q8H PRN PRN Reason: Nausea and Vomiting Last Admin: 06/05/25 13:06 Dose: 4 mg Prednisone (Prednisone 5 Mg Tablet) 5 mg PO DAILY [facility] Last Admin: 06/05/25 08:01 Dose: 5 mg Sodium Chloride (0.9 % Sodium Chloride Flush 3 Ml Syringe) 3 ml IVFLUSH QSHIFT [facility] Last Admin: 06/05/25 08:03 Dose: 3 ml Home Medications ?Medication ?Instructions ?Recorded ?Confirmed ?Type aspirin 81 mg chewable tablet 1 tab PO DAILY 06/04/25 06/04/25 History omeprazole 20 mg capsule,delayed 20 mg PO DAILY@0630 PRN Acid Reflux 06/04/25 06/04/25 History release ondansetron 8 mg disintegrating 8 mg PO Q8H PRN nausea/vomiting 06/04/25 06/04/25 History tablet Allergies Allergy/AdvReac Type Severity Reaction Status Date / Time amoxicillin (From Augmentin) Allergy Severe tongue/facial Verified 06/04/25 09:20 swelling clavulanic acid (From Allergy Severe tongue/facial Verified 06/04/25 09:20 Augmentin) swelling Physical Exam Vital signs: Vital Signs Temp 98.0 F 06/05/25 07:58 Pulse 111 H 06/05/25 07:58 Resp 14 06/05/25 07:58 BP 113/65 06/05/25 07:58 Pulse Ox 92 06/05/25 07:58 O2 Del Method Room Air 06/05/25 07:58 Intake & Output 06/04/25 06/05/25 06/05/25 18:59 06:59 18:59 Intake Total 1300 / 1700 400 / 1700 120 / 120 Output Total 300 / 300 300 / 300 Balance 1300 / 1400 100 / 1400 -180 / -180 Urine Output (Average ml/kg/hr) 0.37 0.37 Intake: Intake, Oral Amount 400 / 400 120 / 120 Intake, IV Amount 1300 / 1300 Azithromycin 500 mg In 0.9 % 250 / 250 Sodium Chloride 250 ml @ 125 mls/hr IV ONCE ONE Rx#: [id number] Lactated Ringers 1,000 ml @ 999 1000 / 1000 mls/hr IV .Q1H1M ONE Rx#: [id number] cefEPime HCl/D5W 2 gm In 50 ml 50 / 50 @ 100 mls/hr IV ONCE ONE Rx#: [id number] Output: Output, Urine Amount 300 / 300 300 / 300 Other: Lunch % Eaten 50% Urine Urinal Urine Color Yellow Last Bowel Movement 06/03/25 06/03/25 Weight 67.4 kg 66.7 kg Weight 66.7 kg - Constitutional Present: mild distress - Routine HEENT Exam Head: Present: normal inspection, normocephalic Eye: Present: normal appearance ENT: Present: mucous membranes moist - Routine Neck Exam Present: supple - Routine Respiratory Exam Present: CTAB - Routine Cardiovascular Exam Cardiovascular: Present: RRR, S1, S2 - Routine Abdominal Exam Present: nontender - Routine Extremities Exam Present: nontender Hem/Onc Consult Result - Labs CBC & Chem 7: 06/06/25 05:30 06/06/25 05:30 Labs: Short CBC 06/05/25 Range/Units 05:55 WBC 15.5 H (4.8-10.8) X10*3/uL Hgb 10.8 L (14.0-18.0) g/dl Hct 32.9 L (42.0-52.0) % Plt Count 216 (160-400) X10*3/uL BMP 06/05/25 05:55 Sodium 137 Potassium 3.7 Chloride 104 Carbon Dioxide 21 L BUN 18 H Creatinine 0.82 Calcium 8.0 L Assessment and Plan Patient Active problem list reviewed?: Yes (1) Prostate cancer metastatic to bone Status: Acute Assessment and plan: 85-year-old gentleman, with 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 He was recently started on Pluvicto, at [facility]. He presented with?generalized weakness and fatigue x3 days. 06/04. CTA revealed: No acute pulmonary artery emboli. No aneurysm or dissection, thoracic aorta. Concerning multifocal pneumonia and bilateral small pleural effusions. Coronary artery disease and atherosclerosis disease. Hiatal hernia, small to moderate volume. He was admitted to the hospital for further evaluation and management of multifocal pneumonia in the setting of immunocompromised status. He has tachycardia related to hypovolemia. Elevated troponins: Initial troponin 61.9 with repeat flat at 52.7 Likely type 2 in the setting of increased demand. Has had a chronic leukocytosis. Patient was pancultured and started on broad-spectrum antibiotics. He has started to feel better on the current antibiotic regimen. PLAN: Continue azithromycin and cefepime, started 06/04. Monitor respiratory status. He is on a prednisone taper. To continue slow taper. He will return to Oncology Wednesday to receive his Denosumab. Will plan weekly hydration as he gets through, the Pluvicto regimen. Next dose will be in 6 weeks' time. Thank you, CC: Dr. Afia Flores. - Time Spent With Patient Time Spent with Patient (in minutes): 30
[2025-06-05 15:57] VITALS: BP 106/63; PULSE 99; RESP 16; TEMP 36.2; O2SAT 93
[2025-06-05 20:00] VITALS: BP 111/66; PULSE 102; RESP 16; TEMP 36.2; O2SAT 98
[2025-06-05] MEDS: cefEPime HCl/D5W 2 GM/50 ML PIGGYBACK IV (22:35)
[2025-06-06 04:00] VITALS: BP 102/57; PULSE 96; RESP 20; TEMP 36.3; O2SAT 93
[2025-06-06 05:52] LABS: Hematocrit 31.2 % (42.0-52.0); Hemoglobin 10.1 g/dl (14.0-18.0); Mean Corpuscular HGB Conc 32.4 g/dl (31.0-36.0); Mean Corpuscular Hemoglobin 29.4 pg (27.0-33.0); Mean Corpuscular Volume 91.0 fL (80.0-98.0); NRBC Abs Auto 0.000 X10*3/uL (0.0-0.012); NRBC Pct Auto 0.0 /100WBC (0.0-0.2); Platelet Count 223 X10*3/uL (160-400); Red Blood Count 3.43 X10*6/uL (4.60-5.80); White Blood Count 11.2 X10*3/uL (4.8-10.8)
[2025-06-06 06:10] LABS: Anion Gap 13 (12-20); Blood Urea Nitrogen 15 mg/dL (9-16); Calcium 7.6 mg/dL (8.4-10.2); Carbon Dioxide 22 mmol/L (22-29); Chloride 105 mmol/L (96-108); Creatinine Clr Calc Pharmacy 59.8; Estimated Glomerular Filt Rate > 60; Magnesium 1.9 mg/dL (1.6-2.6); Potassium 3.7 mmol/L (3.3-5.1); Sodium 136 mmol/L (135-145)
[2025-06-06 07:41] VITALS: BP 123/71; PULSE 104; RESP 18; TEMP 36.3; O2SAT 94
[2025-06-06] MEDS: 0.9 % Sodium Chloride Flush 3 ML SYRINGE IVFLUSH (08:51)
[2025-06-06] MEDS: cefEPime HCl/D5W 2 GM/50 ML PIGGYBACK IV (11:30)
--- NOTE | 2025-06-06 14:06 | PM.DS ---
DS: Providers Provider Date of Service: 06/06/25 Date of admission: 06/04/25 13:10 Date of discharge: 06/06/25 Primary care physician: Afia Segura MD Consults: 06/04/25 17:38 Consult to Hematology / Oncology Routine Consulting Provider: [facility]cology/Hematology Reason for consultation: Follows with Dr. 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 Klein, NSVT, orthostatic syncope, HTN, and coronary artery disease status post stents who presents to the ED with?generalized weakness and fatigue x3 days. Pt received last session of chemotherapy on Wednesday, and then on Wednesday pt reports ?feeling bad? and was fatigued and generally weak. Pt essentially stayed in bed for the next 2 days before his daughter convinced him to come to the ED for further evaluation. Had very little appetite and some lightheadedness and nausea but no vomiting. No significant abdominal pain or diarrhea. Denies any cold-like symptoms; no SOB or cough. In the ED pt's vitals were significant for tachycardia 105, tachypneic 21, BP largely normotensive. No hypoxia. Labs were significant for WBCs 19.9, H&H 11.4/36.1, troponin 61.9 with repeat flat at 52.7, CRP 18.69, and lactic acid 2.5. CTA of chest negative for PE but showed multifocal pneumonia and bilateral small pleural effusions. ?Pt was treated in the ED with IVF, cefepime, and azithromycin. Pt is admitted to the hospital for treatment and further evaluation of multifocal pneumonia with sepsis in the setting of immunocompromised pt. Hospital course: 85M PMH metastatic prostate cancer with bone mets, NSVT, orthostatic syncope, htn, CAD s/p stents, presented with weakness Patient was admitted for multifocal pna-started oncefepime, azithro, blood cultures sent: With above management patient seems to be improved significantly, blood culture negative at 24 hours.Acute lactic acidosis: Improving, Not due to sepsis. Patient was switched to p.o. antibiotics please complete the course. Elevated troponin:Likely demand ischemia, no ACS Generalized weakness:Due to pneumonia and cancer. PT recommended home and PT plan: Complete antibiotic for pneumonia as above. Repeat chest imaging in 3-4 weeks to see resolution pneumonia. Follow up with Oncology outpatient Above management discussed with the patient detail length, he understand and in agreement with the above plan, daughter was present during conversation. Total time spent 45 minute. Time Attestation Total time managing care of this patient today: 45 mintues. Discharge Coordination Time (in mins): 45 minute Quality: Safe Use of Opioids Does Pt have an Active Cancer Diagnosis on the Problem List?: Yes Opioid Measure Date for [facility] Report: 05/07/25 Opioid Measure Time for [facility] Report: 18:56 Quality: Stroke Does the patient have a stroke diagnosis?: No Physical Exam Exam: Exam: General: AO X 3, generalised weak. Resp: CTA bilateral, no accessory muscles used CVS: S1,S2,RRR GI: soft, non tender, non distended Neuro: motor grossly intact, alert Psych: appropriate affect, appropriate insight Vital Signs: Vital Signs: Last Vital Signs Temp 97.3 F 06/06/25 07:41 Pulse 104 H 06/06/25 07:41 Resp 18 06/06/25 07:41 BP 123/71 06/06/25 07:41 Pulse Ox 94 06/06/25 07:41 O2 Del Method Room Air 06/06/25 07:41 BMI result Body Mass Index 22.4 DS: Data Data Completed and Pending Labs on day of discharge: Laboratory Results - last 24 hr 06/06/25 05:30 WBC 11.2 H RBC 3.43 L Hgb 10.1 L Hct 31.2 L MCV 91.0 MCH 29.4 MCHC 32.4 RDW 15.5 Plt Count 223 MPV 8.9 L Absolute Nucleated RBC 0.000 Nucleated RBC % (auto) 0.0 Sodium 136 Potassium 3.7 Chloride 105 Carbon Dioxide 22 Anion Gap 13 BUN 15 Creatinine 0.82 Estim Creat Clear Calc 59.8 Estimated GFR > 60 Random Glucose 94 Calcium 7.6 L Magnesium 1.9 Preliminary micro results at discharge 06/04/25 13:19 Blood Culture - Preliminary Blood - Venous No growth after 24 hours. 06/04/25 13:19 Blood Culture - Preliminary Blood - Venous No growth after 24 hours. Imaging Chest x-ray: Radiologist's impression: ITS Impressions Chest CTA 06/04/25 12:13 IMPRESSION: No acute pulmonary artery emboli. No aneurysm or dissection, thoracic aorta. Concerning multifocal pneumonia and bilateral small pleural effusions. Coronary artery disease and atherosclerosis disease. Hiatal hernia, small to moderate volume. Fleischner guidelines were followed. Discharge Plan Discharge Anticipated Discharge Date/Time: 06/06/25 14:00 Patient Disposition: Home Health Service Discharge Diagnosis: pneumonia Referrals: [facility] [Other] - 1 Week Afia Segura MD [Primary Care Provider, Endocrinology] - 1 Week Discharge Medications: New azithromycin 500 mg Tablet 500 mg PO Q24H Qty: 6 0RF cefuroxime axetil 500 mg Tablet 500 mg PO Q12H Qty: 16 0RF Continued prednisone 5 mg Tablet 5 mg PO DAILY Qty: 30 0RF ondansetron 8 mg tablet,disintegrating 8 mg PO Q8H PRN (Reason: nausea/vomiting) omeprazole 20 mg capsule,delayed release(DR/EC) 20 mg PO DAILY@0630 PRN (Reason: Acid Reflux) aspirin 81 mg tablet,chewable 1 tab PO DAILY Discharge Orders: Discharge Order (Routine); Ordered 06/06/25 Ordered By: James Santana Diet: Advance to usual diet Activity on Discharge: As tolerated Stand Alone Forms: Patient Portal Discharge page Print Language: Chinese Care Plan Goals: Complete antibiotic for pneumonia as above. Repeat chest imaging in 3-4 weeks to see resolution pneumonia. Follow up with Oncology outpatient Health Concerns: As above. Plan of Treatment: As above. Assessment: As above. Patient Instructions: Pneumonia (DC) Discharge Date/Time: 06/06/25 15:43
--- NOTE | 2025-06-06 15:22 | P.F2F_ITS ---
Service Date Service Date: 06/06/25 Encounter Date of encounter: 06/06/25 Encounter: pneumonia Reasons for Services Signs and symptoms assessed: Shortness of breath or cough or fever or new symptoms. Reason for senior living: medication management, medication treatment and teach disease management Reason for physical therapy: home safety and mobility, therapeutic exercises, restore joint function, gait/transfer training, assess need for DME, ADL training, energy conservation and other MD Overseeing Care: Afia Segura Homebound: Leaving the home is medically contraindicated at this time without the asist of a device and/or another person due th the listed conditions above and below. Reason homebound: weakness related to hospital stay Homebound supporting statement: Patient is generalised weak post hospitlisation and need help with going to appointments and labs draws as well as PT. Certification: Based on the above findings, I certify that this patient is confined to the home and needs intermittent senior living care, physical therapy and/or speech therapy, or continues to need occupational therapy. The patient is under my care, and I have initiated the establishment of the plan of care. The patient will be followed by a physician who will periodically review the plan of care. Time Spent With Patient Time: Total time managing care of this patient today ____ minutes.
[2025-06-06 15:40] VITALS: BP 129/61; PULSE 106; RESP 18; TEMP 36.1; O2SAT 94
== END 2025-06-06 15:43 | disposition home health service (06) | DRG 194 ==
LOC: HO.ED 09:57 → HO.EDOVER 13:26 → HO.S3 19:15
PROVIDERS: Internal Medicine; Admitting Provider Student in an Organized Health Care Education/Training Program; Emergency Provider Emergency Medicine; PCP Internal Medicine; Visit Provider Internal Medicine
DX: J18.9 Pneumonia, unspecified organism (principal); C79.51 Secondary malignant neoplasm of bone; E87.21 Acute metabolic acidosis; C61 Malignant neoplasm of prostate; I25.10 Atherosclerotic heart disease of native coronary artery without angina pectoris; K21.9 Gastro-esophageal reflux disease without esophagitis; E86.0 Dehydration; Z95.5 Presence of coronary angioplasty implant and graft; Z66 Do not resuscitate; Z20.822 Contact with and (suspected) exposure to COVID-19; Z79.51 Long term (current) use of inhaled steroids; Z79.82 Long term (current) use of aspirin; Z79.899 Other long term (current) drug therapy
CPT/HCPCS: 36415; 71275; 80048; 80076; 81003; 82550; 83605; 83735; 84145; 84484; 85025; 85027; 86140; 87040; 87637; 93005; 97116; 97161; 99285; J0456; J0692; J1650; J2405; J7120; Q9967

== ENCOUNTER → 2025-06-04 10:29 | Outpatient (BNV) | payer MEDICARE, OTHER, SELFPAY | PROVIDERS: Admitting Provider Student in an Organized Health Care Education/Training Program; Emergency Provider Emergency Medicine; PCP Internal Medicine; Visit Provider Internal Medicine Cardiovascular Disease | DX: I25.2 Old myocardial infarction (principal) | CPT/HCPCS: 93010 ==

== ENCOUNTER → 2025-06-04 11:54 | Outpatient (BNV) | payer MEDICARE, OTHER, SELFPAY | PROVIDERS: Emergency Provider Emergency Medicine; PCP Internal Medicine; Visit Provider Radiology Diagnostic Radiology | DX: I25.10 Atherosclerotic heart disease of native coronary artery without angina pectoris (principal); K44.9 Diaphragmatic hernia without obstruction or gangrene | CPT/HCPCS: 71275 ==

== ENCOUNTER → 2025-06-04 13:10 | Outpatient (BNV) | payer MEDICARE, OTHER, SELFPAY | PROVIDERS: Admitting Provider Student in an Organized Health Care Education/Training Program; Emergency Provider Emergency Medicine; PCP Internal Medicine; Visit Provider Student in an Organized Health Care Education/Training Program | DX: J18.9 Pneumonia, unspecified organism (principal) | CPT/HCPCS: 99223 ==

== ENCOUNTER → 2025-06-04 13:10 | Outpatient (BNV) | payer MEDICARE, OTHER, SELFPAY | PROVIDERS: Admitting Provider Student in an Organized Health Care Education/Training Program; Emergency Provider Emergency Medicine; PCP Internal Medicine; Visit Provider Internal Medicine Medical Oncology | DX: C61 Malignant neoplasm of prostate (principal); C79.51 Secondary malignant neoplasm of bone | CPT/HCPCS: 99222 ==

== ENCOUNTER 2025-06-07 23:38 | Inpatient (IN) | payer MEDICARE, OTHER, SELFPAY ==
--- NOTE | ~2025-06-07 | XR_ITS ---
CLINICAL HISTORY: cp 1 view chest x-ray Comparison: Chest x-ray from 05/25/2025 and 12/03/2024 Findings: Low lung volumes with mild bibasilar atelectasis/pneumonitis. No pneumothorax or pleural effusion in this portable image with obscuration of the costophrenic angles. Degenerative changes include imaged AC joints and imaged shoulders. IMPRESSION: Mild bibasilar atelectasis/pneumonitis This document has been electronically signed by: Ned Gilliland MD on 06/08/2025 01:34:54
[2025-06-07 23:45] VITALS: BP 130/73; PULSE 119; RESP 18; TEMP 37.6; O2SAT 98; BMI 22.8
[2025-06-08] VITALS (7 sets, daily range): BP systolic 99–122; BP diastolic 54–64; PULSE 91–112; RESP 16–18; TEMP 36–39.1; O2SAT 93–96; BMI 21.7
--- NOTE | 2025-06-08 00:14 | ECG_ITS ---
Test Reason : SOB Blood Pressure : */* mmHG Vent. Rate : 117 BPM Atrial Rate : 117 BPM P-R Int : 132 ms QRS Dur : 84 ms QT Int : 296 ms P-R-T Axes : 35 4 83 degrees QTcB Int : 412 ms Sinus tachycardia with occasional Premature ventricular complexes Nonspecific T wave abnormality Abnormal ECG When compared with ECG of 04-Jun-2025 10:57, Premature ventricular complexes are now Present Criteria for Inferior infarct are no longer Present Nonspecific T wave abnormality no longer evident in Anterior leads Nonspecific T wave abnormality, worse in Lateral leads Referred By: Marianela Yu Electronically Signed By: TOMMY BABCOCK MD
--- NOTE | 2025-06-08 00:17 | ED.WEAKNESS ---
HPI - Weakness General Chief complaint: Weakness Stated complaint: SOB Time Seen by Provider: 06/07/25 23:45 History of Present Illness HPI Narrative: patient is an 85-year-old male with a history of prostate cancer. Was admitted about a week ago for multifocal pneumonia. Was noted on CTA of the chest at the time. Patient just got discharged yesterday. Presented today with having increasing weakness. Generalized malaise. Coughing. EMS noted a decreased O2 sat of 89-90% on room air. Patient has been on cefepime and azithromycin. Was discharged on Ceftin. Been compliant with medication. No fever but feels very weak very short of breath still having a lot of phlegm. Not back to baseline. Related Data Home Medications ?Medication ?Instructions ?Recorded ?Confirmed aspirin 81 mg chewable tablet 1 tab PO DAILY 06/04/25 06/04/25 omeprazole 20 mg capsule,delayed 20 mg PO DAILY@0630 PRN Acid Reflux 06/04/25 06/04/25 release ondansetron 8 mg disintegrating 8 mg PO Q8H PRN nausea/vomiting 06/04/25 06/04/25 tablet Previous Rx's ?Medication ?Instructions ?Recorded prednisone 5 mg tablet 5 mg PO DAILY #30 tabs 05/08/25 azithromycin 500 mg tablet 500 mg PO Q24H #6 tabs 06/06/25 cefuroxime axetil 500 mg tablet 500 mg PO Q12H #16 tabs 06/06/25 Allergies Allergy/AdvReac Type Severity Reaction Status Date / Time amoxicillin (From Augmentin) Allergy Severe tongue/facial Verified 06/07/25 23:59 swelling clavulanic acid (From Allergy Severe tongue/facial Verified 06/07/25 23:59 Augmentin) swelling Review of Systems Review of Systems: Positive generalized malaise weakness Yes all other systems are reviewed and are negative PMFSH Past Medical History Attestation statement: The following information was validated with the patient. Medical History Prostate cancer metastatic to bone Hemorrhoids Elevated PSA Surgical History Hx of prostate biopsy Family History Family History Mother No problems noted. Father No problems noted. 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 Oriented X3. No acute distress. Eyes: Pupils equal, round and reactive to light. ENT: Pharynx normal. Neck: Normal inspection. Neck supple. No lymph nodes noted. No crepitus CVS: Normal heart rate and rhythm. Pulses normal. Normal S1 and S2 Respiratory: No respiratory distress. Breath sounds normal. No Wheezing. No rales Abdomen: Soft and nontender. No rigidity. No distention. good BS x4 Skin: Skin warm and dry. Normal skin color. Normal skin turgor. Extremities: No lower extremity edema. Neurovascular intact to all extremities. No Lacerations. No Rash Neuro: Oriented X 3. No motor deficit. No sensory deficit. Moving all extermities. No slurred speech Vital Signs: Vital Signs: Last Vital Signs Temp 99.6 F 06/07/25 23:45 Pulse 119 H 06/07/25 23:45 Resp 18 06/07/25 23:45 BP 130/73 06/07/25 23:45 Pulse Ox 98 06/07/25 23:45 O2 Del Method Room Air 06/07/25 23:45 BMI result Body Mass Index 22.8 Medications Administered Discontinued Medications Generic Name Dose Route Start Last Admin Trade Name Freq PRN Reason Stop Dose Admin Sodium Chloride 500 mls @ 999 mls/hr 06/08/25 00:15 06/08/25 01:23 Ns IV 06/08/25 00:45 Infused .Q31M BAUTISTA Infusion Cefepime HCl 1 gm/ Sodium 50 mls @ 100 mls/hr 06/08/25 00:15 06/08/25 01:23 Chloride IV 06/08/25 00:44 Infused ONCE ONE Infusion Medical Decision Making Medical Decision Making [facility] Narrative: 85 years old was just discharged from the hospital for pneumonia has been on antibiotic all along. Had a elevated lactate at 2.2. Additional IV fluid was given. No cultures was done as patient was just discharged just had cultures done earlier. Patient is hemoglobin is 11.4. My interpretation of his EKG showed a sinus rhythm heart rate is 110 ID QRS QTC normal no acute ST segment elevation. Patient's case discussed with hospitalist team. Will admit for further evaluation and monitoring. Differential Diagnosis Differential Diagnoses: The differential diagnosis associated with the presentation includes Admission/Observation Consideration of admission/observation: Escalation of care including admission/observation considered Consult Healthcare Provider Management of the patient was discussed with: Hospitalist Lab Data [facility] Lab Attestation statement: I reviewed the patient's lab results. 06/08/25 00:40 06/08/25 00:40 Labs: Lab Results 06/08/25 Range/Units 00:40 WBC 10.1 (4.8-10.8) X10*3/uL RBC 3.82 L (4.60-5.80) X10*6/uL Hgb 11.4 L (14.0-18.0) g/dl Hct 35.6 L (42.0-52.0) % MCV 93.2 (80.0-98.0) fL MCH 29.8 (27.0-33.0) pg MCHC 32.0 (31.0-36.0) g/dl RDW 15.7 (11.0-16.0) % Plt Count 219 (160-400) X10*3/uL MPV 8.5 L (9.4-12.4) fL Immature Gran % (Auto) Cancelled Neut % (Auto) Cancelled Lymph % (Auto) Cancelled [place] % (Auto) Cancelled Eos % (Auto) Cancelled Baso % (Auto) Cancelled Lymph # (Auto) Cancelled [place] # (Auto) Cancelled Eos # (Auto) Cancelled Baso # (Auto) Cancelled Abs Immat Gran (auto) Cancelled Absolute Neuts (auto) Cancelled Absolute Nucleated RBC 0.050 H (0.0-0.012) X10*3/uL Nucleated RBC % (auto) 0.5 H (0.0-0.2) /100WBC Sodium 137 (135-145) mmol/L Potassium 4.1 (3.3-5.1) mmol/L Chloride 102 (96-108) mmol/L Carbon Dioxide 24 (22-29) mmol/L Anion Gap 15 (12-20) BUN 15 (9-16) mg/dL Creatinine 0.94 (0.5-1.4) mg/dL Estim Creat Clear Calc 53.2 Estimated GFR > 60 Random Glucose 96 (60-115) mg/dL Lactic Acid 2.2 H* (0.5-2.0) mmol/L Calcium 7.9 L (8.4-10.2) mg/dL Total Bilirubin 0.5 (0.0-1.0) mg/dL Direct Bilirubin 0.2 (0.0-0.5) mg/dL AST 60 H (5-37) U/L ALT 24 (0-40) U/L Alkaline Phosphatase 86 (39-117) U/L Troponin I High Sens 73.4 H (<3.5-35.0) ng/L Total Protein 6.0 L (6.5-8.0) g/dL Albumin 3.2 L (3.5-5.0) g/dL Independent Interpretation I performed an independent interpretation of an: EKG ( Sinus heart rate is 110 ID QRS QTC normal no acute ST segment elevation) Radiology Impression Discussion of test interpretation with radiology: I have reviewed the radiologist's reading. External Record Review External record reviewed: Inpatient record Chronic Conditions Patient?s care impacted by: Cancer prostate cancer Social Determinants Patient?s care significantly limited by Social Determinants of Health including: Problems related to primary support group Discharge Plan Discharge Clinical Impression: Pneumonia Patient Disposition: Admitted As Inpatient
--- OUTSIDE RECORDS SUMMARY | 2025-06-08 00:44 | XMS_ITS | Clinical Summary ---
Author Organization [facility] Address [address] [place] [address] Phone Care Team Providers Care First Calender Worker Name Role Phone Unavailable Primary Care Provider Unavailabl e Encounters Date Type Department Care Team Description 04/13/2025 1:40 PM EDT - 04/13/2025 11:59 PM EDT Hospital Encounter [facility] PET Scan [address] [place] [address] Prostate cancer (CMS/[facility] V24, CMS/[facility] V28) Discharge Disposition: Home or Self Care [...] Routine 04/13/2025 6:32 PM EDT Prostate cancer ([facility] V24, [facility] V28) from Last 3 Months Results * [...] Signed Date: 04/18/2025 10:38 ET Workstation ID: [id number] Transcribed By: Self Edit Transcribed Date: 04/18/2025 [...] not designed to produce and cannot replace zmdqm-ku-vhu-art true diagnostic CT examination with specific protocols. [...] CT not designed toproduce and cannot replace gvmjw-ry-piu-art true diagnostic CT examinationwith specific protocols. Standardized [...] Signed Date: 04/18/2025 10:38 ET Workstation ID: [id number] Transcribed By: Self Edit Transcribed Date: 04/18/2025 06:23 ET Renée Klein MD IMG NM PROCEDURES Final Result from Last 3 Months Insurance MEDICARE [facility]
--- OUTSIDE RECORDS SUMMARY | 2025-06-08 00:44 | XMS_ITS | Encounter Summary ---
Author Organization [facility] Address [address] [place] [address] Phone Care Team Providers Care Training Program Manager Name Role Phone Kashif Ly MD Primary Care Provider Self-Referred, Patient Unavailable Unavailab Chinmay Bear [facility] Unavailable [phone] Carlos Mi MD Unavailable Ean Klein MD Unavailable [phone] Encounter Details Date Type Department Care Team (Late st Contact Info) Description 09/03/2023 Ancillary Orders Outside Imaging Chinmay Rg, [facility] [address] [place] [address] [email or web address]. U Social History Tobacco Use Types Packs/Day [...] Interpretation) (08/19/2023 12:00 AM EST) Other Narrative JESSICAOVNSUSHANTRochelle - 09/03/2023 12:40 PM EST This study is for PACS storage only and not for interpretation. us Chinmay Calderón IMG OUTSIDE IMAGING W/OUT IN TERPRETATION Final Result [facility] documented in this encounter Visit Diagnoses Not on filedocumented in this encounter Care Teams Training Program Manager Relationship Specialty Start Date End Date Kashif Ly MD [address] [place] [address] [place] [address] PCP - General Internal Medicine 09/02/23 Self-Referred, Patient 09/02/23 Chinmay Rg [facility] [address] [place] [phone] [email or web address] Medical Oncology 09/02/23 Carlos Mi MD [address] [place] [phone] Urology 09/03/23 Ean Klein MD [address] [place] [phone] 09/03/23 documented as of this encounter Additional Source Comments The information contained in this document represents components of the legal health record. It is not the complete legal health record.[facility]
--- OUTSIDE RECORDS SUMMARY | 2025-06-08 00:44 | XMS_ITS | Clinical Summary ---
Author Organization [facility] Address [address] [place] [address] Phone Care Team Providers Care Mold Filling Operator Name Role Phone Kashif Ly MD Primary Care Provider Self-Referred, Patient Unavailable Unavailab Chinmay Bear [facility] Unavailable Carlos Mi MD Unavailable Ean Klein [...] 05/30/2022, 05/10/2019, Additional history exists COVID-19 VACCINE ( season) 2025 05/08/2023, 08/01/2022, 06/24/2021, Additional history exists HEPATITIS A VACCINES Aged Out No long er eligible based on patient's age to complete this topic HIB VACCINES Aged Out No longer eligi ble based on patient's age to complete this topic IPV VACCINES Aged Out No longer eligi ble based on patient's age to complete this topic MENINGOCOCCAL VACCINES (ACWY) Aged Out No longer eligible based on patient's age to complete this topic MENINGOCOCCAL VACCINES (B) Aged Out N o longer eligible based on patient's age to complete this topic Medical Devices Not on file Insurance MEDICARE PART A & B GIVTED MEDICARE SUPPLEMENT MEDICARE PART A & B GIVTED MEDICARE SUPPLEMENT MEDICARE PART A & B [facility] EXTENSION MEDICARE SUPPLEMENT MEDICARE PART A & B [place] EXTENSION MEDICARE SUPPLEMENT [facility]ARE [facility] A & [facility] SUPPLEMENT MEDICARE PART A & B [facility] EXTENSION MEDICARE SUPPLEMENT Care Teams Mold Filling Operator Relationship Specialty Start Date End Date Kashif Ly MD [address] [place] [address] [address] PCP - General Internal Medicine 09/02/23 Self-Referred, Patient 09/02/23 [facility] [address] [place] [address] [email or web address] 09/02/23 Carlos Mi MD [address] [place] [address] Urology 09/03/23 Ean Klein MD [address] [place] [phone] 09/03/23 Additional Source Comments The information contained in this document represents components of the legal health record. It is not the complete legal health record.[facility]
--- OUTSIDE RECORDS SUMMARY | 2025-06-08 00:44 | XMS_ITS | Encounter Summary ---
Author Organization [facility] Address [address] [place] [address] Phone Care Team Providers Care Mid Teacher Name Role Phone Kashif Ly MD Primary Care Provider Self-Referred, Patient Unavailable Unavailab Chinmay Bear [facility] Unavailable [phone] Carlos Mi MD Unavailable Ean Klein MD Unavailable Encounter Details Date Type Department Care Team (Late st Contact Info) Description 09/03/2023 Ancillary Orders Outside Imaging Chinmay Rg, [facility] [address] [place] [address] [email or web address] U Social History Tobacco Use Types Packs/Day [...] on filedocumented in this encounter Care Teams Mid Teacher Relationship Specialty Start Date End Date Kashif Ly MD [address] [place] [address] [place] [address] PCP - General Internal Medicine 09/02/23 Self-Referred, Patient 09/02/23 Chinmay Rg [facility] [address] [place] [phone] [email or web address] Medical Oncology 09/02/23 Carlos Mi MD [address] [place] [place] [phone] Urology 09/03/23 aEn Klein MD [address] [place] [phone] 09/03/23 documented as of this encounter Additional Source Comments The information contained in this document represents components of the legal health record. It is not the complete legal health record.[facility]
[2025-06-08 00:47] LABS: Hematocrit 35.6 % (42.0-52.0); Hemoglobin 11.4 g/dl (14.0-18.0); Mean Corpuscular HGB Conc 32.0 g/dl (31.0-36.0); Mean Corpuscular Hemoglobin 29.8 pg (27.0-33.0); Mean Corpuscular Volume 93.2 fL (80.0-98.0); NRBC Abs Auto 0.050 X10*3/uL (0.0-0.012); NRBC Pct Auto 0.5 /100WBC (0.0-0.2); Platelet Count 219 X10*3/uL (160-400); Red Blood Count 3.82 X10*6/uL (4.60-5.80); White Blood Count 10.1 X10*3/uL (4.8-10.8)
[2025-06-08 01:01] LABS: Alanine Aminotransferase 24 U/L (0-40); Albumin Level 3.2 g/dL (3.5-5.0); Alkaline Phosphatase 86 U/L (39-117); Anion Gap 15 (12-20); Aspartate Amino Transferase 60 U/L (5-37); Blood Urea Nitrogen 15 mg/dL (9-16); Calcium 7.9 mg/dL (8.4-10.2); Carbon Dioxide 24 mmol/L (22-29); Chloride 102 mmol/L (96-108); Creatinine Clr Calc Pharmacy 53.2; Estimated Glomerular Filt Rate > 60; Potassium 4.1 mmol/L (3.3-5.1); Sodium 137 mmol/L (135-145); Total Protein 6.0 g/dL (6.5-8.0)
[2025-06-08 01:06] LABS: Troponin-I High Sensitivity 73.4 ng/L (<3.5-35.0)
--- NOTE | 2025-06-08 01:39 | PM.IMHP ---
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 Klein, NSVT, orthostatic syncope, HTN, and coronary artery disease status post stents,discharged on 06/06 for multifocal pneumonia and generalized weakness, who presented to the ED last night due to hypoxia at home with increased weakness and not improving with oral antibiotics. The patient's daughter reports that his oxygen saturation has been around 89% and the patient has been difficult to arouse the day, very lethargic. She was able to get him to eat and she denies any choking or coughing episodes with eating. He does not describe burning with urination but feels this may be related to his prostate cancer treatment. He had 1 episode of diarrhea recently. No blood in the stool, hemoptysis or hematemesis. Review of Systems Constitutional: Constitutional: Denies chills, Reports fatigue and Denies fever(s) Eyes: Eyes: Denies change in vision Cardiovascular: Cardiovascular: Denies chest pain, Denies rapid heart rate, Denies leg edema, Denies lightheadedness and Reports dyspnea Respiratory: Respiratory: Reports as per HPI, Reports dyspnea and Denies wheezing Gastrointestinal: Gastrointestinal: Denies abdominal pain, Reports diarrhea, Denies nausea and Denies vomiting Genitourinary: Genitourinary: Reports dysuria, Denies urinary frequency and Denies urinary urgency Musculoskeletal: Musculoskeletal: Denies myalgias Integumentary/Breasts: Skin/Breast: Denies rash Neurologic: Reports as per HPI and Denies confusion Psychiatric: Psychiatric: Denies confusion Endocrine: Endocrine: Reports fatigue Hematologic/Lymphatic: Hematologic/Lymphatic: Denies easy bleeding Allergic/Immunologic: Allergic/Immunologic: Denies wheezing [facility], [facility] Medical History Prostate cancer metastatic to bone Hemorrhoids Elevated PSA Family History Mother No problems noted. Father No problems noted. 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 Cognitive needs: No Hearing needs: No (pt throw them away, he's not using them ) Vision needs: Yes (rx ) Meds Allergies Allergy/AdvReac Type Severity Reaction Status Date / Time amoxicillin (From Augmentin) Allergy Severe tongue/facial Verified 06/07/25 23:59 swelling clavulanic acid (From Allergy Severe tongue/facial Verified 06/07/25 23:59 Augmentin) swelling Home Medications ?Medication ?Instructions ?Recorded ?Confirmed ?Last Taken ?Type aspirin 81 mg chewable tablet 1 tab PO DAILY 06/04/25 06/04/25 06/04/25 History omeprazole 20 mg capsule,delayed 20 mg PO DAILY@0630 PRN Acid Reflux 06/04/25 06/04/25 Unknown History release ondansetron 8 mg disintegrating 8 mg PO Q8H PRN nausea/vomiting 06/04/25 06/04/25 Unknown History tablet Physical Exam Vital Signs and Narrative: Vital Signs: Last Vital Signs Temp 99.6 F 06/07/25 23:45 Pulse 119 H 06/07/25 23:45 Resp 18 06/07/25 23:45 BP 130/73 06/07/25 23:45 Pulse Ox 98 06/07/25 23:45 O2 Del Method Room Air 06/07/25 23:45 BMI result Body Mass Index 22.8 General: AOx3, no acute distress. drowsy but will follow commands. history given by pt's daughter Resp: crackles R lung base, no wheezing CVS: S1, S2, tachy, regular rhythm GI: +BS, NT, no distention Skin: Warm, dry Neuro: Cranial nerves II-XII grossly intact bilaterally. Motor grossly intact bilaterally Extremities: No pitting edema Psych: Appropriate affect Const: General: No confusion Orientation/consciousness: No confusion Neuro: General: No confusion Results Labs 06/08/25 00:40 06/08/25 00:40 Labs: Laboratory Results - last 24 hr 06/08/25 00:40 MCV 93.2 MCH 29.8 MCHC 32.0 RDW 15.7 Plt Count 219 MPV 8.5 L Immature Gran % (Auto) Cancelled Neut % (Auto) Cancelled Lymph % (Auto) Cancelled [place] % (Auto) Cancelled Eos % (Auto) Cancelled Baso % (Auto) Cancelled Lymph # (Auto) Cancelled [place] # (Auto) Cancelled Eos # (Auto) Cancelled Baso # (Auto) Cancelled Abs Immat Gran (auto) Cancelled Absolute Neuts (auto) Cancelled Absolute Nucleated RBC 0.050 H Nucleated RBC % (auto) 0.5 H Anion Gap 15 Estim Creat Clear Calc 53.2 Estimated GFR > 60 Random Glucose 96 Lactic Acid 2.2 H* Calcium 7.9 L Total Bilirubin 0.5 Direct Bilirubin 0.2 AST 60 H ALT 24 Alkaline Phosphatase 86 Troponin I High Sens 73.4 H Total Protein 6.0 L Albumin 3.2 L Assessment and Plan (1) Acute respiratory failure with hypoxia: Status: Acute (2) Sepsis: Status: Acute (3) Multifocal pneumonia: Status: Acute (4) Weakness: Status: Acute (5) Elevated troponin: Status: Acute Plan 85-year-old male with a PMH significant for?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 Klein, NSVT, orthostatic syncope, HTN, and coronary artery disease status post stents,discharged on 06/06 for multifocal pneumonia and generalized weakness, who presented to the ED last night due to hypoxia at home with increased weakness and not improving with oral antibiotics. Acute hypoxic respiratory failure and sepsis secondary to multifocal pneumonia, suspected aspiration VS HAP - currently on 4.5 L via NC, titrate oxygen as appropriate - cefepime and vancomycin due to recent hospitalization and possible aspiration - sputum culture - blood cultures pending - urine legionella and strep pneumo - IV tylenol - NPO pending swallow eval - monitor CBC and BMP weakness, secondary to pneumonia, cancer and deconditioning - repeat PT eval prior to discharge elevated troponin - likely demand ischemia, no ACS - repeat trop after 4 hours Metastatic prostate cancer - Follow up Oncology, continue prednisone Coronary artery disease - Aspirin GERD - PPI med rec pending DVT prophylaxis heparin DNR/DNI Patient returned to the acute hypoxic respiratory failure adn sepsis secondary to multifocal pneumonia, suspected aspiration, failed outpatient treatment, requiring admission for at least 2 midnight stay for IV antibiotics and monitoring. Quality Stroke Does the patient have a stroke diagnosis?: No VTE Prior VTE?: No VTE Risk Level:: Medical - moderate - high VTE Device Contraindication: Treatment Not Indicated VTE Drug Contraindication: N/A - Med Ordered
[2025-06-08 01:42] LABS: Band Neutrophils Percent 1 % (3-5); Lymphocytes Absolute Manual 0.7 X10*3/uL (1.2-4.9); Lymphocytes Percent Manual 7 % (20-40); Metamyelocytes Absolute 0.2 X10*3/uL; Metamyelocytes Percent 2 %; Monocytes Absolute Manual 0.8 X10*3/uL (0.1-1.2); Monocytes Percent Manual 8 % (2-11); Myelocytes Absolute 0.4 X10*/uL; Myelocytes Percent 4 %; Neutrophils Absolute Manual 8.0 X10*3/uL (2.0-8.3); Neutrophils Percent Manual 78 % (45-73)
[2025-06-08 01:43] LABS: Polychromasia 1+ (0-2) /OIF; RBC Morphology NOTED; Tear Drop Cells 1+ (0-2) /OIF
[2025-06-08 02:46] LABS: Reflex Lactate? Lactic Acid Added
[2025-06-08 03:28] LABS: Appearance Urine Clear; Glucose Urine UA Negative (Negative); PH 6.0 (5.0-9.0); Specific Gravity - Urine 1.015 (1.005-1.025); UMIC TRIGGER UACC YES
[2025-06-08 05:13] LABS: Hematocrit 29.7 % (42.0-52.0); Hemoglobin 9.5 g/dl (14.0-18.0); Mean Corpuscular HGB Conc 32.0 g/dl (31.0-36.0); Mean Corpuscular Hemoglobin 29.5 pg (27.0-33.0); Mean Corpuscular Volume 92.2 fL (80.0-98.0); NRBC Abs Auto 0.030 X10*3/uL (0.0-0.012); NRBC Pct Auto 0.3 /100WBC (0.0-0.2); Platelet Count 202 X10*3/uL (160-400); Red Blood Count 3.22 X10*6/uL (4.60-5.80); White Blood Count 10.6 X10*3/uL (4.8-10.8)
[2025-06-08 05:27] LABS: Anion Gap 12 (12-20); Blood Urea Nitrogen 15 mg/dL (9-16); Calcium 7.1 mg/dL (8.4-10.2); Carbon Dioxide 22 mmol/L (22-29); Chloride 105 mmol/L (96-108); Creatinine Clr Calc Pharmacy 58.2; Estimated Glomerular Filt Rate > 60; Potassium 3.9 mmol/L (3.3-5.1); Sodium 135 mmol/L (135-145)
[2025-06-08 05:30] LABS: Troponin-I High Sensitivity 94.0 ng/L (<3.5-35.0)
--- NOTE | 2025-06-08 06:26 | PHA.PROG ---
Admission Date/Time: June 08, 2025 01:20 Indication: Sepsis Weight in k.039 kg Adjusted body weight in K.25 kg [place] body weight in K.4 Obesity Dosing Indication % IBW:100% Serum Creatinine - Last 168 Hours 06/08/25 06/08/25 00:40 04:40 Creatinine 0.94 0.86 Estimated CrCl and GFR - Last 168 Hours 06/08/25 06/08/25 00:40 04:40 Estim Creat Clear Calc 53.2 58.2 Estimated GFR > 60 > 60 Vancomycin Loading Dose: 1500 mg (~22 mg/kg) Current Vancomycin Dosing Regimen: 1250 mg Q24H Date and Time for next Vancomycin Level to be drawn: 06/11 @ 0500 Pharmacist Comments on Vancomycin Plan: patient receive an adequate load dose in the ER on 06/08 @ 0336. Maintenance dose 1250 mg Q24H is scheduled to start 06/09 @ 0700. This is being given 4 hour after late to allow for level to be monitor in house. Predicted AUC 494 with a trough of 14.3. Level to be drawn prior to the 4th dose 06/11 @ 0500. If any signs of worsening renal function, trough can be drawn sooner to monitor for toxicity Pharmacy will monitor renal function daily Shiela Levy, Kesha Vancomycin dosing will take advantage of [employer] as a clinical decision support tool that uses Bayesian modeling to calculate individual patient's pharmacokinetic parameters and forecast the patient's drug concentration time course with the target goal AUC 24 range of 400 - 600 mg/L/hr.
[2025-06-08] MEDS: cefEPime HCl/D5W 2 GM/50 ML PIGGYBACK IV ×2 (08:24→20:47)
[2025-06-08] MEDS: 0.9 % Sodium Chloride Flush 3 ML SYRINGE IVFLUSH ×3 (08:25→20:44)
--- NOTE | 2025-06-08 08:30 | PHA.MEDREC ---
Addendum entered by Bakari Garcia RPh 06/08/25 10:58: MED REC REVIEWED BY [facility] Original Note: Pharmacy Consult ? Medication Reconciliation Pharmacy has completed the medication reconciliation. Patient was just discharged 06/06/25 utilized discharge packet to confirm med list.
[2025-06-08] MEDS: Hydrocortisone Sod Succ/PF 100 MG VIAL IVPUSH ×2 (11:55→20:43)
--- NOTE | 2025-06-08 12:27 | P.PNIM_ITS ---
Subjective Subjective Date of Service: 06/08/25 Interval History: pneumonia Review of Systems seem similar as h&P Review of Systems: Yes all other systems are reviewed and are negative Physical Exam 2 Exam: Exam: seen and examined -similar as h&P Vital Signs: Vital Signs: Last Vital Signs Temp 96.8 F 06/08/25 07:46 Pulse 92 06/08/25 07:46 Resp 16 06/08/25 07:46 BP 99/54 L 06/08/25 07:46 Pulse Ox 95 06/08/25 07:46 O2 Del Method Nasal Cannula 06/08/25 07:46 O2 Flow Rate 4 06/08/25 07:46 BMI result Body Mass Index 21.7 Objective Data Active Medications Acetaminophen (Acetaminophen 325 Mg Tablet) 650 mg PO Q6H PRN On Hold: 06/08/25 02:53 PRN Reason: Pain, Mild 1-3,fever,headache Aspirin (Aspirin 81 Mg Tab.Chew) 81 mg PO DAILY [facility] Calcium Carbonate (Calcium Carbonate 750 Mg Tab.Chew) 750 mg PO Q4H PRN PRN Reason: Heartburn Heparin Sodium (Porcine) (Heparin Sodium,Porcine 5,000 Unit/Ml Vial) 5,000 unit SUBCUT Q12H [facility] Last Admin: 06/08/25 09:53 Dose: 5,000 unit Documented By: CINDI Hydrocortisone Sodium Succinate (Hydrocortisone Sod Succ/Pf 100 Mg Vial) 100 mg IVPUSH Q8H [facility] Last Admin: 06/08/25 11:55 Dose: 100 mg Documented By: CINDI Cefepime HCl (Maxipime) 2 gm in 50 mls @ 100 mls/hr IV Q12H [facility] Last Infusion: 06/08/25 09:12 Dose: Infused Documented By: CINDI Vancomycin HCl 1,250 mg/ (Sodium Chloride) 250 mls @ 166.667 mls/hr IV Q24H [facility] Albumin Human ([place]in 25 %) 100 mls @ 100 mls/hr IV Q6H [facility] Stop: 06/08/25 15:14 Last Admin: 06/08/25 09:12 Dose: Not Given Documented By: CINDI Non-Admin Reason: Patient Refused Acetaminophen (Ofirmev) 1,000 mg in 100 mls @ 400 mls/hr IV Q6H PRN PRN Reason: Fever Magnesium Hydroxide (Milk Of Magnesia 30 Ml Oral.Susp) 30 ml PO DAILY PRN PRN Reason: Constipation Melatonin (Melatonin 3 Mg Tablet) 6 mg PO BEDTIME PRN PRN Reason: Insomnia Omeprazole (Omeprazole 20 Mg Capsule.Dr) 20 mg PO DAILY@0630 PRN PRN Reason: Acid Reflux Ondansetron HCl (Ondansetron Hcl 4 Mg/2 Ml Vial) 4 mg IVPUSH Q8H PRN PRN Reason: Nausea and Vomiting Ondansetron HCl (Ondansetron Odt 8 Mg Tab.Rapdis) 8 mg TRANSLINGU Q8H PRN PRN Reason: nausea/vomiting Pharmacy Consult (Consult Rx Vancomycin Dosing) 1 each MISCELLANE DAILY PRN PRN Reason: Consult order Sodium Chloride (0.9 % Sodium Chloride Flush 3 Ml Syringe) 3 ml IVFLUSH QSHIFT [facility] Last Admin: 06/08/25 08:25 Dose: 3 ml Documented By: CINDI Labs 06/08/25 04:40 06/08/25 04:40 Labs: Laboratory Results - last 24 hr 06/08/25 06/08/25 06/08/25 00:40 02:35 03:17 MCV 93.2 MCH 29.8 MCHC 32.0 RDW 15.7 Plt Count 219 MPV 8.5 L Immature Gran % (Auto) Cancelled Neut % (Auto) Cancelled Lymph % (Auto) Cancelled [place] % (Auto) Cancelled Eos % (Auto) Cancelled Baso % (Auto) Cancelled Lymph # (Auto) Cancelled [place] # (Auto) Cancelled Eos # (Auto) Cancelled Baso # (Auto) Cancelled Abs Immat Gran (auto) Cancelled Absolute Neuts (auto) Cancelled Absolute Nucleated RBC 0.050 H Nucleated RBC % (auto) 0.5 H Neutrophils % (Manual) 78 H Band Neutrophils % 1 L Lymphocytes % (Manual) 7 L Monocytes % (Manual) 8 Metamyelocytes % 2 Myelocytes % 4 Abs Neuts (Manual) 8.0 Lymphocytes # (Manual) 0.7 L Monocytes # (Manual) 0.8 Metamyelocytes # 0.2 Myelocytes # 0.4 Nucleated RBCs 2 H Platelet Estimate NORMAL Plt Morphology Comment NORMAL RBC Morphology NOTED Polychromasia 1+ (0-2) Tear Drop Cells 1+ (0-2) Anion Gap 15 Estim Creat Clear Calc 53.2 Estimated GFR > 60 Random Glucose 96 Lactic Acid 2.2 H* 1.8 Calcium 7.9 L Total Bilirubin 0.5 Direct Bilirubin 0.2 AST 60 H ALT 24 Alkaline Phosphatase 86 Troponin I High Sens 73.4 H Total Protein 6.0 L Albumin 3.2 L Urine Color Yellow Urine Appearance Clear Urine pH 6.0 Ur Specific [place] 1.015 Urine Protein 30 (1+) H Urine Glucose (UA) Negative Urine Ketones Trace Urine Blood Trace H Urine Nitrite Negative Ur Leukocyte Esterase Negative Urine RBC 3-5 H Urine WBC 0-5 Ur Squamous Epith Cells 0-2 Urine Bacteria None Seen Hyaline Casts 0-2 06/08/25 04:40 MCV 92.2 MCH 29.5 MCHC 32.0 RDW 15.8 Plt Count 202 MPV 8.6 L Immature Gran % (Auto) Neut % (Auto) Lymph % (Auto) [place] % (Auto) Eos % (Auto) Baso % (Auto) Lymph # (Auto) [place] # (Auto) Eos # (Auto) Baso # (Auto) Abs Immat Gran (auto) Absolute Neuts (auto) Absolute Nucleated RBC 0.030 H Nucleated RBC % (auto) 0.3 H Neutrophils % (Manual) Band Neutrophils % Lymphocytes % (Manual) Monocytes % (Manual) Metamyelocytes % Myelocytes % Abs Neuts (Manual) Lymphocytes # (Manual) Monocytes # (Manual) Metamyelocytes # Myelocytes # Nucleated RBCs Platelet Estimate Plt Morphology Comment RBC Morphology Polychromasia Tear Drop Cells Anion Gap 12 Estim Creat Clear Calc 58.2 Estimated GFR > 60 Random Glucose 91 Lactic Acid Calcium 7.1 L D Total Bilirubin Direct Bilirubin AST ALT Alkaline Phosphatase Troponin I High Sens 94.0 H Total Protein Albumin Urine Color Urine Appearance Urine pH Ur Specific [place] Urine Protein Urine Glucose (UA) Urine Ketones Urine Blood Urine Nitrite Ur Leukocyte Esterase Urine RBC Urine WBC Ur Squamous Epith Cells Urine Bacteria Hyaline Casts Assessment and Plan (1) Multifocal pneumonia: Status: Acute Assessment and Plan: 85 y/o M with a PMH significant for?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 Klein, NSVT, orthostatic syncope, HTN, and coronary artery disease status post stents,discharged on 06/06 for multifocal pneumonia and generalized weakness, who presented to the ED last night due to hypoxia at home with increased weakness and not improving with oral antibiotics. Acute hypoxic respiratory failure and sepsis secondary to multifocal pneumonia, suspected aspiration VS HAP also fond to hae influenza A seems similar clicically as h&P, plan: IV tylenol,monitor CBC and BMP continue cefepime and vancomycin, added tamiflu,follow culture, urine legionella and strep pneumo hx of cdiff recent per his daughter -added po vanco while on antibiotics added pulm eval. weakness, secondary to pneumonia, cancer and deconditioning peat PT eval prior to discharge elevated troponin-thought to be likely demand ischemia, no ACS patient denies any chest pain Metastatic prostate cancer - Follow up Oncology, added hydrocortisone (since was on prednisone.) Coronary artery disease - Aspirin GERD - PPI med rec pending DVT prophylaxis heparin DNR/DNI acute hypoxic respiratory failure adn sepsis secondary to multifocal pneumonia, failed outpatient treatment-oxygen demand,need stay for IV antibiotics and monitoring,pulm eval. Quality Stroke Does the patient have a stroke diagnosis?: No VTE Prior VTE?: No VTE Risk Level:: Medical - moderate - high VTE Device Contraindication: Treatment Not Indicated VTE Drug Contraindication: N/A - Med Ordered
[2025-06-08 13:50] LABS: Chlamydia pneumoniae PCR Not Detected (Not Detect.); Coronavirus 229E PCR Not Detected (Not Detect.); Coronavirus HKU1 PCR Not Detected (Not Detect.); Coronavirus NL63 PCR Not Detected (Not Detect.); Coronavirus OC43 PCR Not Detected (Not Detect.); Influenza A H1-2009 PCR Detected (Not Detect.); RSV PCR Not Detected (Not Detect.); Rhino/Enterovirus PCR Not Detected (Not Detect.)
[2025-06-08 14:06] LABS: SARS-CoV-2 PCR Not Detected (Not Detect.)
[2025-06-08 14:07] LABS: Influenza A H1 PCR Not Detected (Not Detect.); Influenza A H3 PCR Not Detected (Not Detect.)
--- NOTE | 2025-06-08 15:34 | MHC.CM.PN ---
CM MET WITH PT AND DAUGHTER, ISABELLE [phone], AT BEDSIDE PT LIVES ALONE AND IS INDEPENDENT WITH CARE AND MOBILITY HE WAS ACTIVE WITH [facility] - RETURN REFERRAL SENT PCP: JIMMIE THURSTON IMM DELIVERED DCP: HOME RESUME [facility] IS THE GOAL FAMILY WILL TRANSPORT
[2025-06-09 03:40] VITALS: BP 119/72; PULSE 97; RESP 16; TEMP 36; O2SAT 93
[2025-06-09 06:16] LABS: Hematocrit 31.6 % (42.0-52.0); Hemoglobin 10.4 g/dl (14.0-18.0); Mean Corpuscular HGB Conc 32.9 g/dl (31.0-36.0); Mean Corpuscular Hemoglobin 30.0 pg (27.0-33.0); Mean Corpuscular Volume 91.1 fL (80.0-98.0); NRBC Abs Auto 0.000 X10*3/uL (0.0-0.012); NRBC Pct Auto 0.0 /100WBC (0.0-0.2); Platelet Count 236 X10*3/uL (160-400); Red Blood Count 3.47 X10*6/uL (4.60-5.80); White Blood Count 11.3 X10*3/uL (4.8-10.8)
[2025-06-09 06:32] LABS: Anion Gap 13 (12-20); Blood Urea Nitrogen 16 mg/dL (9-16); Calcium 7.8 mg/dL (8.4-10.2); Carbon Dioxide 22 mmol/L (22-29); Chloride 104 mmol/L (96-108); Creatinine Clr Calc Pharmacy 61.0; Estimated Glomerular Filt Rate > 60; Potassium 4.4 mmol/L (3.3-5.1); Sodium 135 mmol/L (135-145)
[2025-06-09 07:57] VITALS: BP 127/72; PULSE 97; RESP 18; TEMP 36.3; O2SAT 93
[2025-06-09] MEDS: cefEPime HCl/D5W 2 GM/50 ML PIGGYBACK IV ×2 (08:39→17:40)
[2025-06-09] MEDS: 0.9 % Sodium Chloride Flush 3 ML SYRINGE IVFLUSH ×3 (08:41→20:52)
[2025-06-09] MEDS: Hydrocortisone Sod Succ/PF 100 MG VIAL IVPUSH ×2 (08:44→20:52)
--- NOTE | 2025-06-09 13:42 | P.CONPL_ITS ---
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 Klein, NSVT, orthostatic syncope, HTN, and coronary artery disease status post stents who presents to the ED with?generalized weakness and fatigue x3 days. Pt received last session of chemotherapy on Wednesday, and then on Wednesday pt reports ?feeling bad? and was fatigued and generally weak. In the ED pt's vitals were significant for tachycardia 105, tachypneic 21, BP largely normotensive. No hypoxia. Labs were significant for WBCs 19.9, H&H 11.4/36.1, troponin 61.9 with repeat flat at 52.7, CRP 18.69, and lactic acid 2.5. CTA of chest negative for PE but showed multifocal pneumonia and bilateral small pleural effusions. ?Pt was treated in the ED with IVF, cefepime, and azithromycin. Pt is admitted to the hospital for treatment and further evaluation of multifocal pneumonia with sepsis in the setting of immunocompromised pt. The patient was tested positive for H1N1 started Tamiflu. He is currently antibiotics currently on oxygen and appears to be confused. Review of Systems 2 Constitutional: Constitutional: Denies chills, Reports fatigue and Denies fever(s) Eyes: Eyes: Denies change in vision Cardiovascular: Cardiovascular: Denies chest pain, Denies rapid heart rate, Denies leg edema, Denies lightheadedness and Reports dyspnea Respiratory: Respiratory: Reports as per HPI, Reports dyspnea and Denies wheezing Gastrointestinal: Gastrointestinal: Denies abdominal pain, Reports diarrhea, Denies nausea and Denies vomiting Genitourinary: Genitourinary: Reports dysuria, Denies urinary frequency and Denies urinary urgency Musculoskeletal: Musculoskeletal: Denies myalgias Integumentary/Breasts: Skin/Breast: Denies rash Neurologic: Reports as per HPI and Reports confusion Psychiatric: Psychiatric: Reports confusion Endocrine: Endocrine: Reports fatigue Hematologic/Lymphatic: Hematologic/Lymphatic: Denies easy bleeding Allergic/Immunologic: Allergic/Immunologic: Denies wheezing PMFSH Past Medical History Medical History Prostate cancer metastatic to bone Hemorrhoids Elevated PSA Family History Family History Mother No problems noted. Father No problems noted. 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 Cognitive needs: No Hearing needs: No (pt throw them away, he's not using them ) Vision needs: Yes (rx ) Meds Allergies Allergy/AdvReac Type Severity Reaction Status Date / Time amoxicillin (From Augmentin) Allergy Severe tongue/facial Verified 06/07/25 23:59 swelling clavulanic acid (From Allergy Severe tongue/facial Verified 06/07/25 23:59 Augmentin) swelling Active Medications: Current Medications Acetaminophen (Acetaminophen 325 Mg Tablet) 650 mg PO Q6H PRN On Hold: 06/08/25 02:53 PRN Reason: Pain, Mild 1-3,fever,headache Aspirin (Aspirin 81 Mg Tab.Chew) 81 mg PO DAILY [facility] Last Admin: 06/09/25 08:41 Dose: 81 mg Calcium Carbonate (Calcium Carbonate 750 Mg Tab.Chew) 750 mg PO Q4H PRN PRN Reason: Heartburn Last Admin: 06/09/25 00:36 Dose: 750 mg Heparin Sodium (Porcine) (Heparin Sodium,Porcine 5,000 Unit/Ml Vial) 5,000 unit SUBCUT Q12H [facility] Last Admin: 06/09/25 08:43 Dose: 5,000 unit Hydrocortisone Sodium Succinate (Hydrocortisone Sod Succ/Pf 100 Mg Vial) 100 mg IVPUSH BID [facility] Last Admin: 06/09/25 08:44 Dose: 100 mg Cefepime HCl (Maxipime) 2 gm in 50 mls @ 100 mls/hr IV Q12H [facility] Last Infusion: 06/09/25 09:09 Dose: Infused Vancomycin HCl 1,250 mg/ (Sodium Chloride) 250 mls @ 166.667 mls/hr IV Q24H [facility] Last Infusion: 06/09/25 08:43 Dose: Infused Acetaminophen (Ofirmev) 1,000 mg in 100 mls @ 400 mls/hr IV Q6H PRN PRN Reason: Fever Magnesium Hydroxide (Milk Of Magnesia 30 Ml Oral.Susp) 30 ml PO DAILY PRN PRN Reason: Constipation Melatonin (Melatonin 3 Mg Tablet) 6 mg PO BEDTIME PRN PRN Reason: Insomnia Omeprazole (Omeprazole 20 Mg Capsule.Dr) 20 mg PO DAILY@0630 PRN PRN Reason: Acid Reflux Ondansetron HCl (Ondansetron Hcl 4 Mg/2 Ml Vial) 4 mg IVPUSH Q8H PRN PRN Reason: Nausea and Vomiting Last Admin: 06/09/25 12:53 Dose: 4 mg Ondansetron HCl (Ondansetron Odt 8 Mg Tab.Rapdis) 8 mg TRANSLINGU Q8H PRN PRN Reason: nausea/vomiting Oseltamivir Phosphate (Oseltamivir Phosphate 75 Mg Capsule) 75 mg PO BID [facility] Stop: 06/13/25 09:01 Last Admin: 06/09/25 08:41 Dose: 75 mg Pharmacy Consult (Consult Rx Vancomycin Dosing) 1 each MISCELLANE DAILY PRN PRN Reason: Consult order Sodium Chloride (0.9 % Sodium Chloride Flush 3 Ml Syringe) 3 ml IVFLUSH QSHIFT [facility] Last Admin: 06/09/25 08:41 Dose: 3 ml Vancomycin HCl (Vancomycin Hcl 125 Mg Capsule) 125 mg PO Q6H [facility] Last Admin: 06/09/25 09:58 Dose: 125 mg Home Medications ?Medication ?Instructions ?Recorded ?Confirmed ?Last Taken ?Type aspirin 81 mg chewable tablet 1 tab PO DAILY 06/04/25 06/08/25 06/07/25 History omeprazole 20 mg capsule,delayed 20 mg PO DAILY@0630 P RN Acid Reflux 06/04/25 06/08/25 Unknown History release ondansetron 8 mg disintegrating 8 mg PO Q8H PRN nausea /vomiting 06/04/25 06/08/25 Unknown History tablet Physical Exam 2 Vital Signs: Vital Signs: Last Vital Signs Temp 97.3 F 06/09/25 07:57 Pulse 97 06/09/25 07:57 Resp 18 06/09/25 07:57 BP 127/72 06/09/25 07:57 Pulse Ox 93 06/09/25 07:57 O2 Del Method Nasal Cannula 06/09/25 07:57 O2 Flow Rate 1 06/09/25 07:57 BMI result Body Mass Index 21.7 Const: General: comfortable and confusion Orientation/consciousness: c onfusion HEENT: Head: Yes normocephalic Neck: Neck: Yes supple Chest: Chest palpation & inspection: normal inspection of the chest Resp: Effort & Inspection: normal respiratory effort Auscultation: rhonchi Cardio: Heart sounds: S1 normal heart sound present and S2 normal heart sound present GI: Palpation (GI): Soft to palpation Skin: General skin exam: no rashes or lesions noted Neuro: General: confusion Extrem: General: Yes no clubbing, cyanosis or edema Results Laboratory Findings 06/09/25 06:04 06/09/25 06:04 Abnormal lab findings: Abnormal Labs 06/08/25 06/08/25 06/08/25 00:40 03:17 04:40 WBC RBC 3.82 L 3.22 L Hgb 11.4 L 9.5 L Hct 35.6 L 29.7 L MPV 8.5 L 8.6 L Absolute Nucleated RBC 0.050 H 0.030 H Nucleated RBC % (auto) 0.5 H 0.3 H Neutrophils % (Manual) 78 H Band Neutrophils % 1 L Lymphocytes % (Manual) 7 L Lymphocytes # (Manual) 0.7 L Nucleated RBCs 2 H Random Glucose Lactic Acid 2.2 H* Calcium 7.9 L 7.1 L D AST 60 H Troponin I High Sens 73.4 H 94.0 H Total Protein 6.0 L Albumin 3.2 L Urine Protein 30 (1+) H Urine Blood Trace H Urine RBC 3-5 H Influenza A (RT-PCR) Influ A (H1/09) PCR 06/08/25 06/09/25 10:35 06:04 WBC 11.3 H RBC 3.47 L Hgb 10.4 L Hct 31.6 L MPV 8.8 L Absolute Nucleated RBC Nucleated RBC % (auto) Neutrophils % (Manual) Band Neutrophils % Lymphocytes % (Manual) Lymphocytes # (Manual) Nucleated RBCs Random Glucose 129 H Lactic Acid Calcium 7.8 L D AST Troponin I High Sens Total Protein Albumin Urine Protein Urine Blood Urine RBC Influenza A (RT-PCR) Detected A Influ A (H1/09) PCR Detected A Microbiology: Microbiology 06/08/25 12:25 Sputum - Expectorated Gram Stain - Final 06/08/25 12:25 Sputum - Expectorated Sputum Culture - Preliminary Culture in progress. 06/08/25 02:34 Blood - Venous Blood Culture - Preliminary No growth after 24 hours. 06/08/25 02:34 Blood - Venous Blood Culture - Preliminary No growth after 24 hours. Assessment and Plan (1) Acute respiratory failure with hypoxia: Status: Acute (2) Multifocal pneumonia: Status: Acute (3) H1N1 influenza with pneumonia: Status: Acute Plan continue antiviral and anti bacterial therapy consider Solumedrol 40mg if no better respiratory therapy continue oxygen to keep pox >90% Procedures Date of Service Date of Service: 06/09/25
--- NOTE | 2025-06-09 15:28 | HO.PM.IMPN ---
Subjective Subjective Date of Service: 06/09/25 Interval History: pneumonia /flu a Review of Systems sob seems improving has cough Review of Systems: Yes all other systems are reviewed and are negative Physical Exam Exam: Exam: Appearance: Alert.? Oriented X3.?sob cvs: rrr, [id number] , no murmur res:air entry diminshed ,has few scattered rales abd: no rebound or guarding ,nt, bs present. ext pulses present , no cyanosis . neuro: axo3 , nonfocal. Vital Signs: Vital Signs: Last Vital Signs Temp 97.3 F 06/09/25 07:57 Pulse 97 06/09/25 07:57 Resp 18 06/09/25 07:57 BP 127/72 06/09/25 07:57 Pulse Ox 93 06/09/25 07:57 O2 Del Method Nasal Cannula 06/09/25 07:57 O2 Flow Rate 1 06/09/25 07:57 BMI result Body Mass Index 21.7 Objective Data Active Medications Acetaminophen (Acetaminophen 325 Mg Tablet) 650 mg PO Q6H PRN On Hold: 06/08/25 02:53 PRN Reason: Pain, Mild 1-3,fever,headache Aspirin (Aspirin 81 Mg Tab.Chew) 81 mg PO DAILY [facility] Last Admin: 06/09/25 08:41 Dose: 81 mg Documented By: JUDSON Calcium Carbonate (Calcium Carbonate 750 Mg Tab.Chew) 750 mg PO Q4H PRN PRN Reason: Heartburn Last Admin: 06/09/25 00:36 Dose: 750 mg Documented By: JEAN Heparin Sodium (Porcine) (Heparin Sodium,Porcine 5,000 Unit/Ml Vial) 5,000 unit SUBCUT Q12H [facility] Last Admin: 06/09/25 08:43 Dose: 5,000 unit Documented By: JUDSON Hydrocortisone Sodium Succinate (Hydrocortisone Sod Succ/Pf 100 Mg Vial) 100 mg IVPUSH BID [facility] Last Admin: 06/09/25 08:44 Dose: 100 mg Documented By: JUDSON Cefepime HCl (Maxipime) 2 gm in 50 mls @ 100 mls/hr IV Q12H [facility] Last Infusion: 06/09/25 09:09 Dose: Infused Documented By: JUDSON Vancomycin HCl 1,250 mg/ (Sodium Chloride) 250 mls @ 166.667 mls/hr IV Q24H [facility] Last Infusion: 06/09/25 08:43 Dose: Infused Documented By: JUDSON Acetaminophen (Ofirmev) 1,000 mg in 100 mls @ 400 mls/hr IV Q6H PRN PRN Reason: Fever Magnesium Hydroxide (Milk Of Magnesia 30 Ml Oral.Susp) 30 ml PO DAILY PRN PRN Reason: Constipation Melatonin (Melatonin 3 Mg Tablet) 6 mg PO BEDTIME PRN PRN Reason: Insomnia Omeprazole (Omeprazole 20 Mg Capsule.Dr) 20 mg PO DAILY@0630 PRN PRN Reason: Acid Reflux Ondansetron HCl (Ondansetron Hcl 4 Mg/2 Ml Vial) 4 mg IVPUSH Q8H PRN PRN Reason: Nausea and Vomiting Last Admin: 06/09/25 12:53 Dose: 4 mg Documented By: JUDSON Ondansetron HCl (Ondansetron Odt 8 Mg Tab.Rapdis) 8 mg TRANSLINGU Q8H PRN PRN Reason: nausea/vomiting Oseltamivir Phosphate (Oseltamivir Phosphate 75 Mg Capsule) 75 mg PO BID [facility] Stop: 06/13/25 09:01 Last Admin: 06/09/25 08:41 Dose: 75 mg Documented By: JUDSON Pharmacy Consult (Consult Rx Vancomycin Dosing) 1 each MISCELLANE DAILY PRN PRN Reason: Consult order Sodium Chloride (0.9 % Sodium Chloride Flush 3 Ml Syringe) 3 ml IVFLUSH QSHIFT [facility] Last Admin: 06/09/25 08:41 Dose: 3 ml Documented By: JUDSON Vancomycin HCl (Vancomycin Hcl 125 Mg Capsule) 125 mg PO Q6H [facility] Last Admin: 06/09/25 09:58 Dose: 125 mg Documented By: JUDSON Labs 06/09/25 06:04 06/09/25 06:04 Labs: Laboratory Results - last 24 hr 06/09/25 06:04 MCV 91.1 MCH 30.0 MCHC 32.9 RDW 15.8 Plt Count 236 MPV 8.8 L Absolute Nucleated RBC 0.000 Nucleated RBC % (auto) 0.0 Anion Gap 13 Estim Creat Clear Calc 61.0 Estimated GFR > 60 Random Glucose 129 H Calcium 7.8 L D Microbiology Microbiology Results: Microbiology 06/08/25 12:25 Gram Stain - Final Sputum - Expectorated Sputum Culture - Preliminary Culture in progress. 06/08/25 02:34 Blood Culture - Preliminary Blood - Venous No growth after 24 hours. 06/08/25 02:34 Blood Culture - Preliminary Blood - Venous No growth after 24 hours. 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 Klein, NSVT, orthostatic syncope, HTN, and coronary artery disease status post stents,discharged on 06/06 for multifocal pneumonia and generalized weakness, who presented to the ED last night due to hypoxia at home with increased weakness and not improving with oral antibiotics. Acute hypoxic respiratory failure and sepsis secondary to multifocal pneumonia, suspected aspiration VS HAP also fond to hae influenza A seems similar clicically as h&P, plan: IV tylenol,monitor CBC and BMP continue cefepime and vancomycin, tamiflu,follow culture, urine legionella and strep pneumo hx of cdiff recent per his daughter -added po vanco while on antibiotics pulm following. weakness, secondary to pneumonia, cancer and deconditioning peat PT eval prior to discharge elevated troponin-thought to be likely demand ischemia, no ACS patient denies any chest pain Metastatic prostate cancer - Follow up Oncology, added hydrocortisone (since was on prednisone.) Coronary artery disease - Aspirin GERD - PPI med rec pending DVT prophylaxis heparin DNR/DNI acute hypoxic respiratory failure adn sepsis secondary to multifocal pneumonia, failed outpatient treatment-oxygen demand,need stay for IV antibiotics and monitoring,pulm eval. Quality Stroke Does the patient have a stroke diagnosis?: No VTE Prior VTE?: No VTE Risk Level:: Medical - moderate - high VTE Device Contraindication: Treatment Not Indicated VTE Drug Contraindication: N/A - Med Ordered
[2025-06-09 16:00] VITALS: BP 128/68; PULSE 93; RESP 18; TEMP 36.3; O2SAT 96
[2025-06-09 19:38] VITALS: BP 132/67; PULSE 83; RESP 18; TEMP 36.4; O2SAT 93
[2025-06-10] MEDS: cefEPime HCl/D5W 2 GM/50 ML PIGGYBACK IV ×3 (01:47→17:16)
[2025-06-10 03:27] VITALS: BP 124/77; PULSE 82; RESP 14; TEMP 36.1; O2SAT 95
[2025-06-10 07:40] LABS: Hematocrit 34.1 % (42.0-52.0); Hemoglobin 10.7 g/dl (14.0-18.0); Mean Corpuscular HGB Conc 31.4 g/dl (31.0-36.0); Mean Corpuscular Hemoglobin 29.6 pg (27.0-33.0); Mean Corpuscular Volume 94.5 fL (80.0-98.0); NRBC Abs Auto 0.020 X10*3/uL (0.0-0.012); NRBC Pct Auto 0.1 /100WBC (0.0-0.2); Platelet Count 280 X10*3/uL (160-400); Red Blood Count 3.61 X10*6/uL (4.60-5.80); White Blood Count 15.6 X10*3/uL (4.8-10.8)
[2025-06-10 07:52] VITALS: BP 123/71; PULSE 85; RESP 16; TEMP 36.4; O2SAT 95
[2025-06-10 08:06] LABS: Anion Gap 13 (12-20); Blood Urea Nitrogen 22 mg/dL (9-16); Calcium 8.0 mg/dL (8.4-10.2); Carbon Dioxide 22 mmol/L (22-29); Chloride 106 mmol/L (96-108); Creatinine Clr Calc Pharmacy 56.6; Estimated Glomerular Filt Rate > 60; Potassium 4.3 mmol/L (3.3-5.1); Sodium 137 mmol/L (135-145)
[2025-06-10 08:09] LABS: Creatinine Clr Calc Pharmacy 51.2; Estimated Glomerular Filt Rate > 60
[2025-06-10] MEDS: 0.9 % Sodium Chloride Flush 3 ML SYRINGE IVFLUSH ×3 (09:10→20:58)
[2025-06-10] MEDS: Hydrocortisone Sod Succ/PF 100 MG VIAL IVPUSH (09:10)
--- NOTE | 2025-06-10 11:37 | HO.PM.IMPN ---
Subjective Subjective Date of Service: 06/10/25 Interval History: pneumonia ,influenza Review of Systems sob seems somewhat improving generalised weak Physical Exam Exam: Exam: Appearance: Alert.? Oriented X3.?sob cvs: rrr, [id number] , no murmur res:air entry diminshed at bases . abd: no rebound or guarding ,nt, bs present. ext pulses present , no cyanosis . neuro: axo3 , nonfocal. Vital Signs: Vital Signs: Last Vital Signs Temp 97.6 F 06/10/25 07:52 Pulse 85 06/10/25 07:52 Resp 16 06/10/25 07:52 BP 123/71 06/10/25 07:52 Pulse Ox 95 06/10/25 07:52 O2 Del Method Nasal Cannula 06/10/25 07:52 O2 Flow Rate 1 06/10/25 07:52 BMI result Body Mass Index 21.7 Objective Data Active Medications Acetaminophen (Acetaminophen 325 Mg Tablet) 650 mg PO Q6H PRN On Hold: 06/08/25 02:53 PRN Reason: Pain, Mild 1-3,fever,headache Aspirin (Aspirin 81 Mg Tab.Chew) 81 mg PO DAILY [facility] Last Admin: 06/10/25 09:10 Dose: 81 mg Documented By: TARA Calcium Carbonate (Calcium Carbonate 750 Mg Tab.Chew) 750 mg PO Q4H PRN PRN Reason: Heartburn Last Admin: 06/09/25 18:02 Dose: 750 mg Documented By: JUDSON Heparin Sodium (Porcine) (Heparin Sodium,Porcine 5,000 Unit/Ml Vial) 5,000 unit SUBCUT Q12H [facility] Last Admin: 06/10/25 09:10 Dose: 5,000 unit Documented By: TARA Vancomycin HCl 1,250 mg/ (Sodium Chloride) 250 mls @ 166.667 mls/hr IV Q24H [facility] Last Infusion: 06/10/25 09:11 Dose: Infused Documented By: TARA Acetaminophen (Ofirmev) 1,000 mg in 100 mls @ 400 mls/hr IV Q6H PRN PRN Reason: Fever Cefepime HCl (Maxipime) 2 gm in 50 mls @ 100 mls/hr IV Q8H [facility] Last Infusion: 06/10/25 09:45 Dose: Infused Documented By: HO.JOSE ALFREDO Magnesium Hydroxide (Milk Of Magnesia 30 Ml Oral.Susp) 30 ml PO DAILY PRN PRN Reason: Constipation Melatonin (Melatonin 3 Mg Tablet) 6 mg PO BEDTIME PRN PRN Reason: Insomnia Omeprazole (Omeprazole 20 Mg Capsule.Dr) 20 mg PO DAILY@0630 PRN PRN Reason: Acid Reflux Ondansetron HCl (Ondansetron Hcl 4 Mg/2 Ml Vial) 4 mg IVPUSH Q8H PRN PRN Reason: Nausea and Vomiting Last Admin: 06/09/25 12:53 Dose: 4 mg Documented By: JUDSON Ondansetron HCl (Ondansetron Odt 8 Mg Tab.Rapdis) 8 mg TRANSLINGU Q8H PRN PRN Reason: nausea/vomiting Oseltamivir Phosphate (Oseltamivir Phosphate 30 Mg Capsule) 30 mg PO BID [facility] Stop: 06/13/25 09:01 Pharmacy Consult (Consult Rx Vancomycin Dosing) 1 each MISCELLANE DAILY PRN PRN Reason: Consult order Sodium Chloride (0.9 % Sodium Chloride Flush 3 Ml Syringe) 3 ml IVFLUSH QSHIFT [facility] Last Admin: 06/10/25 09:10 Dose: 3 ml Documented By: TARA Vancomycin HCl (Vancomycin Hcl 125 Mg Capsule) 125 mg PO Q6H [facility] Last Admin: 06/10/25 09:09 Dose: 125 mg Documented By: TARA Labs 06/10/25 06:30 06/10/25 06:30 Labs: Laboratory Results - last 24 hr 06/10/25 06/10/25 06/10/25 06:30 06:30 06:30 MCV 94.5 MCH 29.6 MCHC 31.4 RDW 15.7 Plt Count 280 MPV 8.8 L Absolute Nucleated RBC 0.020 H Nucleated RBC % (auto) 0.1 Anion Gap 13 Estim Creat Clear Calc 56.6 51.2 Estimated GFR > 60 > 60 Random Glucose 108 Calcium 8.0 L Microbiology Microbiology Results: Microbiology 06/08/25 12:25 Gram Stain - Final Sputum - Expectorated Sputum Culture - Preliminary Culture in progress. 06/08/25 02:34 Blood Culture - Preliminary Blood - Venous No growth after 48 hours. 06/08/25 02:34 Blood Culture - Preliminary Blood - Venous No growth after 48 hours. 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 Klein, NSVT, orthostatic syncope, HTN, and coronary artery disease status post stents,discharged on 06/06 for multifocal pneumonia and generalized weakness, who presented to the ED last night due to hypoxia at home with increased weakness and not improving with oral antibiotics. Acute hypoxic respiratory failure and sepsis secondary to multifocal pneumonia, suspected aspiration VS HAP also fond to hae influenza A sob slightly improving ,still sob with exersion nasal mrsa screen added Strep and Legionella antigen pending plan: IV tylenol,monitor CBC and BMP continue cefepime and vancomycin, tamiflu,follow culture, urine legionella and strep pneumo hx of cdiff recent per his daughter -added po vanco while on antibiotics pulm following. weakness, secondary to pneumonia, cancer and deconditioning peat PT eval prior to discharge elevated troponin-thought to be likely demand ischemia, no ACS patient denies any chest pain Metastatic prostate cancer - Follow up Oncology, added hydrocortisone (since was on prednisone.) Coronary artery disease - Aspirin GERD - PPI med rec pending DVT prophylaxis heparin DNR/DNI acute hypoxic respiratory failure adn sepsis secondary to multifocal pneumonia, failed outpatient treatmentx2 -oxygen demand -taper oxygen ,need stay for IV antibiotics and monitoring, repsiratory sttaus is not optimal yet. Quality Stroke Does the patient have a stroke diagnosis?: No VTE Prior VTE?: No VTE Risk Level:: Medical - moderate - high VTE Device Contraindication: Treatment Not Indicated VTE Drug Contraindication: N/A - Med Ordered
[2025-06-10 14:22] LABS: MRSA Nasal PCR NEGATIVE (Negative); SA Nasal PCR NEGATIVE (Negative)
[2025-06-10 14:56] VITALS: BP 119/59; PULSE 89; RESP 16; TEMP 36.6; O2SAT 97
[2025-06-10 20:00] VITALS: BP 133/72; PULSE 86; RESP 18; TEMP 36.2; O2SAT 96
[2025-06-11] MEDS: cefEPime HCl/D5W 2 GM/50 ML PIGGYBACK IV ×2 (00:35→09:03)
[2025-06-11 03:11] VITALS: BP 128/64; PULSE 67; RESP 18; TEMP 36.3; O2SAT 93
[2025-06-11 06:38] LABS: Creatinine Clr Calc Pharmacy 54.1; Estimated Glomerular Filt Rate > 60
[2025-06-11 06:44] VITALS: BP 111/65; PULSE 78; RESP 16; TEMP 36; O2SAT 93
--- NOTE | 2025-06-11 06:46 | HE.PHANOTE ---
VANCO Level came back good and in range, renal function stable. Getting one more trough tomorrow 06/12 to make sure pt stays in range and then can go to Q2D troughs. Predicted trough 16, AUC 537.
[2025-06-11] MEDS: 0.9 % Sodium Chloride Flush 3 ML SYRINGE IVFLUSH (09:04)
--- NOTE | 2025-06-11 12:59 | P.DS_ITS ---
DS: Providers Provider Date of Service: 06/11/25 Date of admission: 06/08/25 01:20 Date of discharge: 06/11/25 Primary care physician: Afia Segura MD Consults: 06/08/25 11:40 Consult to Pulmonology Routine Consulting Provider: [facility] [place] Pulmonology Services Reason for consultation: acute hypoxemic rspiratory failure/pneumonia Has provider been notified: No Attending physician on discharge: James Santana Discharging clinician: James Santana DS: Diagnosis Discharge Diagnosis (1) Multifocal pneumonia: Status: Acute DS: Summary Hospital Course Hospital Course: HPI:85-year-old male with a PMH significant for?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 The patient's daughter reports that his oxygen saturation has been around 89% and the patient has been difficult to arouse the day, very lethargic. She was able to get him to eat and she denies any choking or coughing episodes with eating. He does not describe burning with urination but feels this may be related to his prostate cancer treatment. He had 1 episode of diarrhea recently. No blood in the stool, hemoptysis or hematemesis. 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 Acute hypoxic respiratory failure and sepsis secondary to multifocal pneumonia: Chest imaging shows pneumonitis, Patient was started on IV antibiotics, respiratory viral panel, blood cultures sent. Respiratory viral panel: Positive for influenza A . Nasal MRSA screen negative, strep and Legionella antigen pending Since patient is seems to be improved significantly with the above management, blood culture negative, patient is afebrile, hypoxia resolved. Above was discussed with the Pulmonary: Patient will go home with p.o. Levaquin. Also complete Tamiflu. Prednisone taper-once completed collins go back to home dose of prednisone. P.o. vanco prophylaxis considering recent C diff infection as per family. Seen by PT recommended home with services. elevated troponin-thought to be likely demand ischemia, no ACS patient denies any chest pain. Follow up with PCP. Metastatic prostate cancer - Follow up Oncology, complete prednisone taper and then go back to the home prednisone dose. Plan: Please complete Levaquin, Tamiflu as prescribed. Repeat chest imaging in 3-4 weeks to see resolution of pneumonia. Also complete prednisone taper-after completing prednisone taper can start back on home prednisone dose. Also given vancomycin p.o. for prophylaxis while on antibiotics as per the daughter he had recent C diff infection. Monitor CBC and BMP outpatient Follow up outpatient with PCP and Oncology. Above management discussed with the patient and his daughter in detail length they both understand and in agreement with the above plan, time spent 50 minute. Time Attestation Total time managing care of this patient today: 50 mintues. Discharge Coordination Time (in mins): 50 min Quality: Safe Use of Opioids Does Pt have an Active Cancer Diagnosis on the Problem List?: No Quality: Stroke Does the patient have a stroke diagnosis?: No Physical Exam Exam: Exam: Appearance: Alert.? Oriented X3.? cvs: rrr, [id number] , no murmur res: clear to auscultation ,no rhonchii or wheezing abd: no rebound or guarding ,nt, bs present. ext pulses present , no cyanosis . neuro: axo3 , nonfocal. Vital Signs: Vital Signs: Last Vital Signs Temp 96.8 F 06/11/25 06:44 Pulse 78 06/11/25 06:44 Resp 16 06/11/25 06:44 BP 111/65 06/11/25 06:44 Pulse Ox 93 06/11/25 06:44 O2 Del Method Room Air 06/11/25 06:44 O2 Flow Rate 1 06/10/25 14:56 BMI result Body Mass Index 21.7 DS: Data Data Completed and Pending Labs on day of discharge: Laboratory Results - last 24 hr 06/10/25 06/11/25 13:01 06:05 Creatinine 0.88 Estim Creat Clear Calc 54.1 Estimated GFR > 60 Nasal Screen MRSA (PCR) NEGATIVE Nasal S. aureus Screen NEGATIVE Nasal MRSA/S.aureus Interp SEE NOTE Vancomycin Trough 14.2 Preliminary micro results at discharge 06/08/25 02:34 Blood Culture - Preliminary Blood - Venous No growth after 48 hours. 06/08/25 02:34 Blood Culture - Preliminary Blood - Venous No growth after 48 hours. Imaging Chest x-ray: My impression: cxr: Mild bibasilar atelectasis/pneumonitis Discharge Plan Discharge Anticipated Discharge Date/Time: 06/11/25 12:38 Patient Disposition: Home, Self-Care Discharge Diagnosis: Multifocal pneumonia, influenza a Referrals: Afia Segura MD [Primary Care Provider, Endocrinology] - 1 Week Discharge Medications: New vancomycin 125 mg Capsule 125 mg PO Q6H Qty: 28 0RF oseltamivir 30 mg Capsule 30 mg PO BID Qty: 7 0RF levofloxacin 750 mg Tablet 750 mg PO Q24H Qty: 7 0RF prednisone 10 mg tablet See Taper PO DIRECTED Qty: 27 0RF Taper: Prednisone 40 mg daily for 2 Days and 0 Hour 30 mg daily for 3 Days and 0 Hour 20 mg daily for 3 Days and 0 Hour 10 mg daily for 3 Days and 0 Hour Rx Instructions: see taper instructions Continued ondansetron 8 mg tablet,disintegrating 8 mg PO Q8H PRN (Reason: nausea/vomiting) omeprazole 20 mg capsule,delayed release(DR/EC) 20 mg PO DAILY@0630 PRN (Reason: Acid Reflux) aspirin 81 mg tablet,chewable 1 tab PO DAILY Held prednisone 5 mg Tablet 5 mg PO DAILY Qty: 30 0RF Hold Instructions: Resume on 06/22/25. Discontinued azithromycin 500 mg Tablet 500 mg PO Q24H Qty: 6 0RF cefuroxime axetil 500 mg Tablet 500 mg PO Q12H Qty: 16 0RF Discharge Orders: Discharge Order (Routine); Ordered 06/11/25 Ordered By: James Santana Diet: Advance to usual diet Activity on Discharge: As tolerated Stand Alone Forms: Patient Portal Discharge page Print Language: Italian Care Plan Goals: Please complete Levaquin, Tamiflu as prescribed. Repeat chest imaging in 3-4 weeks to see resolution of pneumonia. Also complete prednisone taper-after completing prednisone taper can start back on home prednisone dose. Also given vancomycin p.o. for prophylaxis while on antibiotics as per the daughter he had recent C diff infection. Monitor CBC and BMP outpatient Follow up outpatient with PCP and Oncology. Health Concerns: as above. Plan of Treatment: as above. Assessment: as above. Patient Instructions: Pneumonia (DC)
--- NOTE | 2025-06-11 13:12 | P.F2F_ITS ---
Service Date Service Date: 06/11/25 Encounter Date of encounter: 06/11/25 Encounter: Pneumonia Reasons for Services Signs and symptoms assessed: Shortness of breath or fever or chills. Reason for nursing home: medication management, medication treatment and teach disease management Reason for physical therapy: home safety and mobility, therapeutic exercises, restore joint function, gait/transfer training, assess need for DME, ADL training, energy conservation and other MD Overseeing Care: Afia Segura Homebound: Leaving the home is medically contraindicated at this time without the asist of a device and/or another person due th the listed conditions above and below. Reason homebound: weakness related to hospital stay Homebound supporting statement: Patient is generalised weak post hospitlisation and need help with going to appointments and labs draws as well as PT. Certification: Based on the above findings, I certify that this patient is confined to the home and needs intermittent nursing home care, physical therapy and/or speech therapy, or continues to need occupational therapy. The patient is under my care, and I have initiated the establishment of the plan of care. The patient will be followed by a physician who will periodically review the plan of care. Time Spent With Patient Time: Total time managing care of this patient today ____ minutes.
--- NOTE | 2025-06-11 14:00 | MHC.CM.PN ---
IMM 06/11/25 Patient is discharged to home today with resumption of [facility]. He has arranged for a ride home.
[2025-06-12 20:18] LABS: Strep Pneumo Ag urine Not Detected (Not Detected)
== END 2025-06-11 15:42 | disposition home health service (06) | DRG 871 ==
LOC: HO.ED 06-08 01:06 → HO.EDOVER 06-08 01:31 → HO.S3 06-08 05:12
PROVIDERS: Admitting Provider Physician Assistant; Emergency Provider Emergency Medicine Emergency Medical Services; PCP Internal Medicine; Visit Provider Internal Medicine
DX: A41.9 Sepsis, unspecified organism (principal); J10.00 Influenza due to other identified influenza virus with unspecified type of pneumonia; J96.01 Acute respiratory failure with hypoxia; J69.0 Pneumonitis due to inhalation of food and vomit; C79.51 Secondary malignant neoplasm of bone; I24.89 Other forms of acute ischemic heart disease; C61 Malignant neoplasm of prostate; Z66 Do not resuscitate; I25.10 Atherosclerotic heart disease of native coronary artery without angina pectoris; K21.9 Gastro-esophageal reflux disease without esophagitis; Z20.822 Contact with and (suspected) exposure to COVID-19; Z79.52 Long term (current) use of systemic steroids; Z79.82 Long term (current) use of aspirin; Z79.899 Other long term (current) drug therapy
CPT/HCPCS: 36415; 71045; 80048; 80076; 80202; 81001; 82565; 83605; 84484; 85007; 85027; 87040; 87070; 87205; 87449; 87633; 87640; 87641; 87899; 93005; 97161; 99285; J0131; J0692; J1644; J1720; J2405; J3374

== ENCOUNTER → 2025-06-08 00:14 | Outpatient (BNV) | payer MEDICARE, OTHER, SELFPAY | PROVIDERS: Admitting Provider Physician Assistant; Emergency Provider Emergency Medicine Emergency Medical Services; PCP Internal Medicine; Visit Provider Internal Medicine Cardiovascular Disease | DX: I49.3 Ventricular premature depolarization (principal); R00.0 Tachycardia, unspecified | CPT/HCPCS: 93010 ==

== ENCOUNTER → 2025-06-08 00:15 | Outpatient (BNV) | payer MEDICARE, OTHER, SELFPAY | PROVIDERS: Admitting Provider Physician Assistant; Emergency Provider Emergency Medicine Emergency Medical Services; PCP Internal Medicine; Visit Provider Radiology Neuroradiology | DX: R07.9 Chest pain, unspecified (principal) | CPT/HCPCS: 71045 ==

== ENCOUNTER → 2025-06-08 01:20 | Outpatient (BNV) | payer MEDICARE, OTHER, SELFPAY | PROVIDERS: Admitting Provider Physician Assistant; Emergency Provider Emergency Medicine Emergency Medical Services; PCP Internal Medicine; Visit Provider Hospitalist | DX: J10.00 Influenza due to other identified influenza virus with unspecified type of pneumonia (principal); J96.01 Acute respiratory failure with hypoxia; J18.9 Pneumonia, unspecified organism | CPT/HCPCS: 99223 ==

== ENCOUNTER → 2025-06-08 01:20 | Outpatient (BNV) | payer MEDICARE, OTHER, SELFPAY | PROVIDERS: Admitting Provider Physician Assistant; Emergency Provider Emergency Medicine Emergency Medical Services; PCP Internal Medicine; Visit Provider Physician Assistant | DX: J18.8 Other pneumonia, unspecified organism (principal) | CPT/HCPCS: 99232; 99239; G0180 ==

== ENCOUNTER 2025-06-29 11:24 | Outpatient (AMB) | payer MEDICARE, OTHER, SELFPAY ==
--- NOTE | 2025-06-29 11:26 | AM.OFFVISMDC ---
Intake Vital Signs 06/29/25 11:41 Height 5 ft 6.34 in Weight 143 lb BMI 22.8 BP 118/60 Blood Pressure Location Lt brachial Position Sitting Respiration 20 Pulse 113 H Pulse Source Pulse Oximeter Temp 97.6 F Temp Source Temporal Artery Scan Pulse Oximetry (%) 94 Oxygen Delivery Method Room Air Intake Visit Reasons: 6 Month F/U/ [facility] Dr. Ly- See comments Road Monkey Required: No Accompanied by: daughter-Lori Allergies amoxicillin (From Augmentin) Allergy (Severe, Verified 06/29/25 11:26) tongue/facial swelling clavulanic acid (From Augmentin) Allergy (Severe, Verified 06/29/25 11:26) tongue/facial swelling Medication List - Last Reconciled 06/29/25 by Paul Junior MD aspirin 1 tab PO DAILY multivitamin 1 tab PO DAILY omeprazole 20 mg PO DAILY@0630 PRN ondansetron 8 mg PO Q8H PRN prednisone 5 mg PO DAILY Held on 06/11/25. Instructions: Resume on 06/22/25. Fall Risk Assessment Fall risk assessment: No Falls in past year Date Fall Risk Assessed: 06/29/25 HPI HPI Comments History of Present Illness Details The patient is an 85 year old male presenting for a follow-up visit for management of chronic conditions and post-hospitalization care. He has a history of prostate cancer with diffuse bone metastases. He was previously on Xtandi, which caused him to pass out, resulting in four hospitalizations. He is now receiving Pluvicto, a radioactive isotope injection, every six weeks, having had his first treatment last month on May 31. He was recently hospitalized for dehydration and was subsequently diagnosed with pneumonia and influenza. He was re-hospitalized 24 hours after an initial discharge due to low oxygen saturation and decreased alertness. Following his hospital stay, he reports significant leg weakness, which he attributes to a lack of exercise. The patient reports long-standing bowel issues since his cancer diagnosis, characterized by loose stools with urgency and episodes of incontinence. He describes a cycle of constipation leading to dehydration and requiring emergency room visits. To manage this, he receives weekly IV fluids from his oncology department and has been taking Senna as needed. He also has acid reflux, for which he takes omeprazole as needed. He has a history of hearing loss and uses cheap hearing aids that do not fit well. 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 Medical History: - Prostate cancer with diffuse bone metastases - Pneumonia, recent - Influenza, recent - Dehydration, recurrent - Gastroesophageal reflux disease - Fecal incontinence - Constipation - History of syncope secondary to Xtandi - Hearing loss Surgical History: - No past surgeries reported. Medications: - Pluvicto injection every six weeks for prostate cancer - Senna as needed for constipation - Omeprazole as needed for acid reflux Family History: - Reports family members living to ages 102 and an aunt who lived to 108. Diagnostic Results: - A follow-up chest x-ray for pneumonia was discussed but deemed unnecessary as radiographic findings can persist for 6-8 weeks. - Blood work is scheduled to be done today at the oncology office. Social History: - Substance use: Denies any history of smoking, alcohol, or illicit drug use. 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 - Living situation: Lives alone. - Support system: His daughter visits for several days at a time, his brother lives 5 minutes away, and he has a supportive network of neighbors. - Functional status: He is independent with activities of daily living including showering, dressing, and preparing his own food. - He is still driving. - Diet: Eats breakfast at a restaurant, which includes scrambled eggs and occasionally a blueberry pancake. [facility] Medical History (Updated 06/29/25 @ 12:18 by Paul Junior MD) Advance care planning Debility Hearing loss GERD without esophagitis Constipation Prostate cancer Prostate cancer metastatic to bone Hemorrhoids Elevated PSA Surgical History (Updated 06/19/25 @ 00:00 by Millicent Delacruz) Hx of prostate biopsy Family History Mother No problems noted. Father No problems noted. 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 Cognitive needs: No Hearing needs: No (pt throw them away, he's not using them ) Vision needs: Yes (rx ) Questionnaire Medicare Wellness Checkup What is your age?: 80 or older What gender do you identify with?: male During the past 4 weeks, how much have you been bothered by emotional problems such as feeling anxious, depressed, irritable, sad or downhearted, and blue?: not at all During the past 4 weeks, has your physical & emotional health limited your social activities with family, friends, neighbors, or groups?: moderately During the past 4 weeks, how much bodily pain have you generally had?: mild pain During the past 4 weeks, was someone available to help you if you needed & wanted help?: yes, as much as I wanted During the past 4 weeks, what was the hardest physical activity you could do for at least 2 minutes?: light Can you get to places out of walking distance without help? (For eg., can you travel alone on buses, taxis or drive your car?): Yes Can you go shopping for groceries or clothes without someone's help?: No Can you prepare your own meals?: Yes Can you do your housework without help?: Yes Because of any health problems, do you need the help of another person with your personal care needs such as eating, bathing, dressing or getting around the house?: No Can you handle your own money without help?: Yes During the past 4 weeks, how would you rate your health in general?: fair During the past 4 weeks how have things been going for you?: pretty well Are you having difficulties driving your car?: no Do you always fasten your seat belt when you are in a car?: yes, usually During past 4 weeks, have you been bothered by the following: never: Falling or dizzy when standing up, Sexual problems?, Trouble eating well?, Teeth or denture problems? and Problems using the telephone? and seldom: Tiredness or fatigue? Have you fallen 2 or more times in the past year?: No Are you afraid of falling?: No Are you a smoker?: no During the past 4 weeks, how many drinks of wine, beer, or other alcoholic beverages did you have?: no alcohol at all Do you exercise for about 20 minutes 3 or more times a week?: yes, some of the time Have you been given information to help with the following?: yes: Keeping track of your medications? and no: Hazards in your house that might hurt you? How often do you have trouble taking medicines the way you have been told to take them?: I do not have to take medicine How confident are you that you can control & manage most of your health problems?: very confident What is your race?: White Mini Mental State Exam (MMSE) Orientation What is the (year) (season) (date) (day) (month)?: year, season, date, day and month Where are we (state) (county) (town or city) (hospital) (floor)?: state, county, town or city and hospital/clinic Registration Name of 3 unrelated objects clearly and slowly, then ask patient to repeat all 3 of them. (1st repeat determines score. Make sure they can repeat all three): object 1, object 2 and object 3 Attention & Calculation (CHOOSE ONE) Ask pt to begin with 100 & count backward by 7. Stop after 5 repeats. If pt cannot ask them to spell the word WORLD backward.: 93, 86, 79, 72 and 65 Spell WORLD backwards (DLROW): 5 letters Recall Ask patient to repeat the 3 items from question #3.: object 2 Language Show patient a wristwatch & ask what it is. Repeat for pencil.: watch and pencil Ask the patient to repeat the phrase 'No ifs, ands, or buts' after you.: correct Ask the patient to 'take a piece of paper with their right hand' 'fold paper in half' 'place paper on floor': take paper in right hand Print the sentence 'CLOSE YOUR EYES' on a piece. If patient actually closes eyes then score.: followed written direction Give patient a blank piece of paper & ask to write a sentence. Score if it contains a noun & verb.: sentence contains subject and verb Ask patient to copy figure of intersecting pentagons exactly. Score if all 10 angles & 2 intersects are included.: all 10 angles present & 2 are intersected Score Score: 30 Activity of Daily Living Bathing - sponge bath, tub bath or shower: receives no assistance (gets in/out by self, if usual bathing means Dressing - getting clothes from closets & drawers, including inner/outer garments & fasteners.: gets clothes & gets completely dressed without help Toileting - going to the 'toilet room' for urine/bowel elimination & cleaning self/arranging clothes: goes to toilet room, cleans self, arranges clothes without help Transfer: moves in & out of bed and chair without help (may use support object) Continence: controls urination/bowel movements completely by self Feeding: feeds self without help Total Score: 0 Information obtained from: patient Using telephone: independent Traveling: independent Shopping: independent Preparing meals: independent Housework: independent Taking medicine: independent Managing money: independent PHQ-9 Over the last 2 weeks, how often have you been bothered by any of the following problems? 1. Little interest or pleasure in doing things: not at all 2. Feeling down, depressed, or hopeless: not at all 3. Trouble falling or staying asleep, or sleeping too much: not at all 4. Feeling tired or having little energy: not at all 5. Poor appetite or overeating: not at all 6. Feeling bad about yourself - or that you are a failure or have let yourself or your family down: not at all 7. Trouble concentrating on things, such as reading the newspaper or watching television: not at all 8. Moving or speaking so slowly that other people could have noticed. Or the opposite - being so fidgety or restless that you have been moving around a lot more than usual: not at all 9. Thoughts that you would be better off or of hurting yourself in some way: not at all Total score: 0 Depression Screening Interpretation: Negative Depression Screening Done: Yes 95780 - PHQ-9 Billing: Yes Source: Developed by Drs. Rolan Lozano, Leah Hamilton, Husam Rosado and colleagues, with an educational derek from [employer]. AUDIT C Alcohol Use Questionnaire (AUDIT-C) 1. How often do you have a drink containing alcohol?: Never Total Score: 0 Score Reviewed/Action Taken: Yes IRVING-7 AMB Questionnaire IRVING-7 Date IRVING - 7 assessed: 06/29/25 Feeling nervous, anxious, or on edge: 0 = Not at all Not being able to stop or control worryin = Not at all Worrying too much about different things: 0 = Not at all Trouble relaxin = Not at all Being so restless that it is hard to sit still: 0 = Not at all Becoming easily annoyed or irritable: 0 = Not at all Feeling afraid as if something awful might happen: 0 = Not at all Total IRVING-7 score (0-4 normal; 5-9 mild; 10-14 moderate; 15-21 severe): 0 Source: Developed by Drs. Rolan Lozano, Leah Hamilton, Husam Rosado and colleagues, with an educational derek from [employer]. IRVING-7 Assessment Billing IRVING-7 Assessment Tool: IRVING-7 Assessment 85069 Thrive Questionnaire Date Thrive assessed: 06/08/25 Review of Systems Narrative - General: Reports intermittent fatigue and weakness, particularly in his legs. - HEENT: Reports hearing loss. - Respiratory: Reports an occasional cough-like sensation originating from his diaphragm when he talks, which was more prevalent after pneumonia. - Gastrointestinal: Reports loose stools, fecal urgency, and incontinence. - Genitourinary: Denies problems with urination. - Neurological: Denies falls, fear of falling, or dizziness upon standing. All systems reviewed & are unremarkable except as reviewed in HPI and above Physical Exam Exam Exam: General: +Alert and oriented, Well nourished, No acute distress. Eye: Pupils are equal, round and reactive to light, Intact accommodation, Extraocular movements are intact, Normal conjunctiva, Vision unchanged. HENT: Normocephalic, Atraumatic, Tympanic membranes are clear, Normal hearing, Oral mucosa is moist, No pharyngeal erythema, Ear canals patent. Respiratory: Lungs CTA bilaterally, No wheeze, Respirations are non-labored. Cardiovascular: Regular rate, Regular rhythm, S1 auscultated, S2 auscultated, No murmur, Good pulses equal in all extremities, Normal peripheral perfusion, No edema. Gastrointestinal: Soft, Non-tender, Non-distended, Normal bowel sounds, No organomegaly. Reports bowel movement issues, with occasional loss of control and loose stools. Advised to take MiraLax daily and consider psyllium husk for stool bulking. Musculoskeletal: Normal range of motion, Normal strength, No tenderness, No swelling, No deformity, Normal gait. Reports difficulty with legs post-hospitalization, advised to increase exercise. Integumentary: Warm, Dry, [place], Intact. Neurologic: Alert, Oriented, Normal sensory, Normal motor function, No focal defects, Cranial Nerves II-XII are grossly intact, Normal deep tendon reflexes. Passed cognitive assessment with minor errors in date recall. Psychiatric: Cooperative, Appropriate mood & affect, Normal judgment. Vital Signs: Last Vital Signs Temp 97.6 F 06/29/25 11:41 Pulse 113 H 06/29/25 11:41 Resp 20 06/29/25 11:41 BP 118/60 06/29/25 11:41 Pulse Ox 94 06/29/25 11:41 Oxygen Delivery Method Room Air 06/29/25 11:41 BMI result Body Mass Index 22.8 Assessment & Plan Assessment & Plan (1) Prostate cancer: Comment: - The patient is currently treated with Pluvicto injections every six weeks under the care of his oncologist. - He will have blood work performed today at the oncology office in preparation for his next treatment on July 12. Code(s): C61 - Malignant neoplasm of prostate (2) Constipation: Comment: - The patient's cycle of constipation and loose, urgent stools will be managed with a scheduled bowel regimen. - He is instructed to discontinue as-needed Senna and start taking one scoop of MiraLax daily. - Psyllium husk (Metamucil) was recommended as an pmmg-wzl-ckeoilu option to help bulk the stool if it remains too loose. Code(s): K59.00 - Constipation, unspecified Qualifiers: Constipation type: unspecified constipation type Qualified Code(s): K59.00 - Constipation, unspecified (3) GERD without esophagitis: Comment: - The patient reports taking omeprazole on an as-needed basis. - He was educated that this medication is not effective when used PRN and was instructed to take it daily on an empty stomach in the morning for prophylaxis. Code(s): K21.9 - Gastro-esophageal reflux disease without esophagitis (4) Hearing loss: Comment: - The patient uses cheap, ill-fitting hearing aids purchased online. - Strongly recommended that he obtain properly evaluated and fitted hearing aids, suggesting [employer] as a reliable and cost-effective option, to improve his quality of life and communication. Code(s): H91.90 - Unspecified hearing loss, unspecified ear Qualifiers: Hearing loss type: other Laterality: bilateral Qualified Code(s): H91.8X3 - Other specified hearing loss, bilateral (5) Debility: Comment: - The patient's leg weakness is likely secondary to his recent prolonged hospitalization. - He was encouraged to increase his physical activity and keep moving to regain strength. Code(s): R53.81 - Other malaise (6) Advance care planning: Comment: - Recommended that the patient and his daughter complete the paperwork to establish her as his Durable Power of Computer System Validation Specialist (DPOA). Code(s): Z71.89 - Other specified counseling Plan: Health Maintenance: - Vaccinations: Patient has received the flu shot and COVID-19 vaccine. - It was recommended to inquire with his oncologist about getting the Pneumovax vaccine. - Healthy lifestyle: Encouraged to maintain physical activity and keep moving to combat deconditioning and leg weakness post-hospitalization. - Hearing health: Advised to obtain properly fitted hearing aids to address hearing loss and improve quality of life. - Advance care planning: Recommended the patient establish a durable power of estate planning attorney (DPOA) with his daughter. Patient was informed and verbally consented to the use of an ambient scribe for clinic note documentation during this visit. Vital signs reviewed. Comprehensive history, review of systems, and physical exam completed. Medications, allergies, and problem list reviewed and updated. Counseling provided on nutrition, regular exercise, sleep hygiene, and moderation of alcohol use. Discussed age-appropriate screenings (mammogram, colonoscopy, Pap, bone density) and immunizations (flu, COVID, shingles, Tdap). Screened for depression, fall risk, and home safety; no current concerns. Discussed stress management, dental and vision care, and importance of ongoing preventive follow-up. Routine labs ordered for metabolic and lipid screening. Patient educated on healthy lifestyle and agrees with the plan. Vision screening performed; patient reports stable vision without acute changes. Hearing screening performed; patient reports significant hearing loss and difficulty with current devices. Immunization status reviewed: flu and COVID up to date; Pneumovax status uncertain?awaiting oncology clearance. Alcohol, tobacco, and substance use screening completed; no alcohol or drug use; former smoker. Home safety assessment completed; no hazards identified; patient feels safe at home. Plan I addressed the patient's concerns regarding his bowel health, particularly the cycle of constipation and fecal incontinence. I explained the rationale for stopping as-needed Senna and starting a daily regimen of MiraLax to promote regularity, with the option of adding psyllium husk for stool bulking. I also discussed his use of omeprazole for acid reflux, clarifying that it must be taken daily on an empty stomach to be effective and protective, rather than as needed for acute symptoms. I strongly advised the patient to invest in professionally fitted hearing aids, recommending [employer] as a good resource, and explained how untreated hearing loss can lead to isolation and depression. I performed a brief cognitive screen and reassured him that he is doing well and that I have no active concerns about senility. I encouraged him to continue being active to regain strength after his recent hospitalization and commended him for his independence. We discussed coordinating care with his oncologist, including getting the Pneumovax vaccine if approved, and I confirmed that no additional lab work was needed from my office at this time. Finally, I recommended he set up a Durable Power of Computer System Validation Specialist with his daughter for his healthcare and scheduled a follow-up visit in six months. Patient Instructions: - Stop taking Senna. - Take one scoop of MiraLax every day to help your bowels move regularly. - If your stool is too watery, you can try an wzni-nls-zrfafma fiber product like Metamucil to make it more solid. - Take your heartburn medicine (omeprazole) every morning on an empty stomach. - Do not buy any more cheap hearing aids from the internet. - You need to get properly fitted hearing aids from a place like [employer]. - Stay active and keep moving to help your legs get stronger. - Check with your cancer doctor to see if you can get the pneumonia vaccine. - Set up the paperwork to make your daughter your Durable Power of Computer System Validation Specialist (DPOA) at the hospital information office. - Schedule an appointment to come back and see us in six months. Quality Reporting (2019) Fall Risk Screening ([facility] 139) Last assessed Fall Risk: 06/29/25 Fall risk assessment: No Falls in past year Depression/Bipolar (159/160/161/177) PHQ-9: Total score: 0 Coding Level of Care Code Medicare First (G0438) Est Pt Level 4 (18542) Diagnoses Prostate cancer C61 Constipation, unspecified constipation type K59.00 Constipation type: unspecified constipation type GERD without esophagitis K21.9 Other specified hearing loss of both ears H91.8X3 Hearing loss type: other Laterality: bilateral Debility R53.81 Advance care planning Z71.89 Additional Codes IRVING-7 Assessment Billing - IRVING-7 Assessment Tool: IRVING-7 Assessment 31409 ([id number]) PHQ-9 - 17749 - PHQ-9 Billing: Yes ([id number])
[2025-06-29 11:41] VITALS: BP 118/60; PULSE 113; RESP 20; TEMP 36.4; O2SAT 94; BMI 22.8
== END 2025-06-29 12:23 | disposition home or self-care (01) ==
PROVIDERS: PCP Student in an Organized Health Care Education/Training Program; Visit Provider Student in an Organized Health Care Education/Training Program
DX: K59.00 Constipation, unspecified (principal); C61 Malignant neoplasm of prostate; K21.9 Gastro-esophageal reflux disease without esophagitis; H91.8X3 Other specified hearing loss, bilateral; R53.81 Other malaise; Z71.89 Other specified counseling

== ENCOUNTER → 2025-06-29 11:24 | Outpatient (BNVA) | payer MEDICARE, OTHER, SELFPAY | PROVIDERS: PCP Internal Medicine; Visit Provider Student in an Organized Health Care Education/Training Program | DX: Z13.31 Encounter for screening for depression (principal); Z13.39 Encounter for screening examination for other mental health and behavioral disorders | CPT/HCPCS: 96127 ==

== ENCOUNTER 2025-07-01 23:37 | Inpatient (IN) | payer MEDICARE, OTHER, SELFPAY ==
--- NOTE | 2025-07-01 | ECG_ITS ---
Test Reason : FALL Blood Pressure : */* mmHG Vent. Rate : 122 BPM Atrial Rate : 122 BPM P-R Int : 126 ms QRS Dur : 82 ms QT Int : 322 ms P-R-T Axes : 45 8 81 degrees QTcB Int : 458 ms Sinus tachycardia Nonspecific ST and T wave abnormality Abnormal ECG When compared with ECG of 08-Jun-2025 00:25, Premature ventricular complexes are no longer Present Nonspecific T wave abnormality now evident in Anterior leads Referred By: Generic ED Physician Electronically Signed By: TOMMY BABCOCK MD
--- NOTE | ~2025-07-01 | XR_ITS ---
EXAMINATION: XR ABDOMEN 1 VIEW (KUB) HISTORY: Abd distension COMPARISON: There are no prior studies available for comparison. FINDINGS: Two supine portable views of the abdomen performed at 13:45 are submitted. The bowel gas pattern is unremarkable, without evidence of mechanical obstruction. No abnormal calcifications are identified. There are no abnormal soft tissue masses. 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 There are findings of pulmonary edema and bilateral pleural effusions the visualized portion of the chest as seen on chest x-ray. XR/XR KUB IMPRESSION: Unremarkable bowel gas pattern. Electronically signed by: Rolan Robertson MD 07/04/2025 01:58 PM [facility]
--- NOTE | ~2025-07-01 | XR_ITS ---
EXAMINATION: XR CHEST 1 VIEW HISTORY: nausea COMPARISON: Comparison is made with the prior examination dated 06/08/2025. FINDINGS: A single AP portable view of the chest performed at 1:46 PM is submitted. There is prominence of the pulmonary vasculature consistent with congestion. Perihilar airspace opacities are compatible with pulmonary edema. There are moderate bilateral pleural effusions. Underlying atelectasis or pneumonia at the left lung base is not excluded. There is no pneumothorax. The heart is top normal in size. There is degenerative disc disease of the spine. XR/XR chest 1V IMPRESSION: Pulmonary edema and moderate bilateral pleural effusions. Underlying atelectasis or pneumonia at the left lung base is not excluded. Electronically signed by: Rolan Robertson MD 07/04/2025 01:57 PM [facility]
--- NOTE | ~2025-07-01 | CT_ITS ---
CLINICAL HISTORY: ? PE CT angiography chest with contrast. 3D Postprocessing. Comparison: CT/REG/SR - CT CHEST ANGIOGRAPHY WITH IV CONTRAST - 06/04/25 12:13 EST Findings: Included lower neck, thyroid gland and mediastinum without acute abnormality. There no chest lymphadenopathy. Moderate cardiomegaly without pericardial effusion. There no evidence of cardiac strain. There no aortic dissection or aneurysm. There are coronary artery calcifications. The pulmonary arteries are nonenlarged. There no evidence of pulmonary embolism. There are small to moderate layering bilateral pleural effusions as well as mild degree diffuse interstitial pulmonary edema. Reactive bibasal subsegmental atelectatic changes. There no focal airspace consolidation. There is no pneumothorax. The airways are patent. Included upper abdomen without acute abnormality. The adrenal glands are nonenlarged. The esophagus is normal throughout the chest. There no acute soft tissue or skeletal abnormality in the chest. No skeletal lesions. IMPRESSION: No evidence of acute pulmonary embolism. Small to moderate layering bilateral pleural effusions. Mild degree diffuse interstitial pulmonary edema. No significant chest lymphadenopathy. This document has been electronically signed by: Adrien Villarreal MD on 07/02/2025 03:46:13
--- NOTE | ~2025-07-01 | CT_ITS ---
CLINICAL HISTORY: fall CT cervical spine without contrast Comparison: None provided Findings: Vertebral alignment is within normal limits. The atlantooccipital joints are unremarkable. There is a normal C1-C2 relationship. Severe disc space narrowing with endplate changes, marginal osteophyte formation and bilateral foraminal stenoses at C5-6 and C6-7. Similar changes to a lesser degree at C7-T1. [id number] multilevel bilateral hypertrophic facet changes. No acute fractures or dislocations. No acute findings on limited view of the intracranial contents. No cervical fluid collections or masses. No consolidation or effusion at the lung apices. IMPRESSION: No acute findings. Advanced multilevel degenerative changes throughout the cervical spine as noted. This document has been electronically signed by: Adrien Villarreal MD on 07/02/2025 03:35:46
--- NOTE | ~2025-07-01 | CT_ITS ---
CLINICAL HISTORY: head injury CT head without contrast Comparison: CT/REG/SR - CT HEAD/BRAIN WO IV CON - 11/01/23 12:52 EDT Findings: No intra-axial mass, midline shift, hydrocephalus, or acute hemorrhage. Involutional changes with prominence of the extra-axial spaces. Symmetric periventricular white matter changes are noted. There are vascular calcifications. There is no sinus or mastoid fluid. The orbits are within normal limits. There is no acute fracture. IMPRESSION: 1. No acute intracranial findings. Chronic microangiopathic changes. Age-appropriate involutional changes This document has been electronically signed by: Adrien Villarreal MD on 07/02/2025 03:38:20
--- NOTE | ~2025-07-01 | CT_ITS ---
CLINICAL HISTORY: fall trauma, back pain CT abdomen and pelvis with contrast Comparison: CT/NE/SR - CT ABDOMEN PELVIS WITH IV CONTRAST - 11/01/23 14:26 EDT Findings: Partially seen small to moderate bilateral pleural effusions and interstitial edema in the included lung bases. Multiple hypodense lesions are seen scattered throughout the liver parenchyma, new since the most recent exam, the largest adjacent to the gallbladder fossa measuring nearly 3-4 cm, Axial image 32, series 17. The spleen, pancreas, bilateral adrenal glands and bilateral kidneys without acute abnormality or abnormal enhancement. Few subcentimeter cortical renal cysts are noted. Nonspecific mild dilatation of the left ureter from the kidney to the bladder. There are no radiopaque urological stones. Gallbladder nondistended. Portal splenic veins are patent. The stomach and bowel loops are nondistended. There is mild thickening of the wall of the proximal ascending colon. Few scattered colonic diverticuli. There is no pericolonic inflammation. Appendix not clearly visualized. However, there are no secondary signs to suggest acute appendicitis. No free fluid, collections or free air. There no aortic dissection or aneurysm. No abdominal or pelvic lymphadenopathy. The bladder is normal. Few small prostate calcifications are noted. There no acute soft tissue or skeletal abnormality in the abdomen or pelvis. There are no skeletal lesions. Multilevel degenerative changes throughout the lumbar spine. IMPRESSION: Multiple hypodense lesions scattered in the liver parenchyma, with imaging features most compatible with metastatic disease. These were not seen on the most recent comparison exam. No significant abdominopelvic lymphadenopathy There is mild concentric thickening of the wall of the ascending colon. Underlying colonic lesion/neoplasm at this level not excluded. Recommend GI consultation. Small bilateral pleural effusions are noted. This document has been electronically signed by: Adrien Villarreal MD on 07/02/2025 03:53:09
[2025-07-01 23:47] VITALS: BP 150/80; PULSE 80; O2SAT 94
[2025-07-01 23:48] VITALS: BP 117/58; PULSE 125; RESP 24; TEMP 38.8; O2SAT 95; BMI 22.6
[2025-07-02] VITALS (22 sets, daily range): BP systolic 85–125; BP diastolic 49–69; PULSE 102–125; RESP 16–26; TEMP 37.1–38.8; O2SAT 92–99
[2025-07-02 00:22] LABS: Hematocrit 31.3 % (42.0-52.0); Hemoglobin 9.9 g/dl (14.0-18.0); Mean Corpuscular HGB Conc 31.6 g/dl (31.0-36.0); Mean Corpuscular Hemoglobin 29.7 pg (27.0-33.0); Mean Corpuscular Volume 94.0 fL (80.0-98.0); NRBC Abs Auto 0.120 X10*3/uL (0.0-0.012); Platelet Count 129 X10*3/uL (160-400); Red Blood Count 3.33 X10*6/uL (4.60-5.80); White Blood Count 9.9 X10*3/uL (4.8-10.8)
--- NOTE | 2025-07-02 00:22 | ED_ITS ---
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 Klein, NSVT, orthostatic syncope, HTN, and coronary artery disease status post stents,discharged on 06/06 for multifocal pneumonia and generalized weakness, Patient was recently in the hospital for pneumonia. About 3 weeks ago. Today patient fell. Question as to the etiology. Son seems to think patient fell accidentally. Patient does not remember. Was on the ground For few hours.patient denies hitting his head. Has no focal pain. From home. Noted to have a fever 102. Generalized malaise. Positive coughing. Denies having any chest pain. Patient not on any blood thinners. From home. No pain on urination. No rash. Related Data Home Medications ?Medication ?Instructions ?Recorded ?Confirmed aspirin 81 mg chewable tablet 1 tab PO DAILY 06/04/25 06/29/25 omeprazole 20 mg capsule,delayed 20 mg PO DAILY@0630 P RN Acid Reflux 06/04/25 06/29/25 release ondansetron 8 mg disintegrating 8 mg PO Q8H PRN nausea /vomiting 06/04/25 06/29/25 tablet multivitamin 1 tab PO DAILY 06/29/2512/17 Previous Rx's ?Medication ?Instructions ?Recorded prednisone 1 mg tablet 4 mg (4 x 1 mg) PO DAILY #10 0 tabs 06/29/25 Allergies Allergy/AdvReac Type Severity Reaction Status Date / Time amoxicillin (From Augmentin) Allergy Severe tongue/facial Verified 07/01/25 23:52 swelling clavulanic acid (From Allergy Severe tongue/facial Verified 07/01/25 23:52 Augmentin) swelling Review of Systems 2 Review of Systems: Positive fever positive generalized malaise no chest pain or diaphoresis PMFSH Past Medical History Attestation statement: The following information was validated with the patient. Medical History Advance care planning Debility Hearing loss GERD without esophagitis Constipation Prostate cancer Prostate cancer metastatic to bone Hemorrhoids Elevated PSA Surgical History Hx of prostate biopsy Family History Family History Mother No problems noted. Father No problems noted. Social History Social History Household Members: None Housing: House Are you a primary healthcare corporate account director to a significant other at home: No Do you presently have visiting nurse or other home services: Yes Patient Tobacco Use Status: Never used Tobacco Smoked in Last 30 Days: No e-Cigarette/Vaping Use: Never Used Use of substances other than those prescribed or required for medical reasons: No Advance Directives: Yes Advance Directives on File: Yes Advance Directives Date on File: 06/25/24 Do you have a plan to hurt others: No Plan service: No 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 Oriented X3. No acute distress. Eyes: Pupils equal, round and reactive to light. ENT: Pharynx normal. Neck: Normal inspection. Neck supple. No lymph nodes noted. No crepitus CVS: Normal heart rate and rhythm. Pulses normal. Normal S1 and S2 Respiratory: No respiratory distress. Breath sounds normal. No Wheezing. No rales Abdomen: Soft and nontender. No rigidity. No distention. good BS x4 Skin: Skin warm and dry. Normal skin color. Normal skin turgor. Extremities: No lower extremity edema. Neurovascular intact to all extremities. No Lacerations. No Rash Neuro: Oriented X 3. No motor deficit. No sensory deficit. Moving all extermities. No slurred speech Vital Signs: Vital Signs - 24 hr 07/01/25 23:48 07/02/25 01:21 07/02/25 03:44 Temperature 102 F H 102 F H 98.8 F Pulse Rate 125 H 125 H 109 H Respiratory Rate 24 H 24 H 21 H Blood Pressure 117/58 L 117/58 L 108/64 Pulse Oximetry 95 95 92 Oxygen Delivery Method Room Air Room Air Room Air 07/02/25 04:00 Temperature 99 F Pulse Rate 108 H Respiratory Rate 20 Blood Pressure 105/61 Pulse Oximetry 93 Oxygen Delivery Method Room Air BMI result Body Mass Index 22.6 Medications Administered Discontinued Medications Generic Name Dose Route Start Last Admin Trade Name Mone PRN Reason Stop Dose Admin Acetaminophen 975 mg 07/02/25 00:18 07/02/25 00:26 Acetaminophen 325 Mg Tablet PO 07/02/25 00:19 975 mg ONCE ONE Administration Sodium Chloride 1,000 mls @ 999 mls/hr 07/02/25 00:30 07/02/25 03:40 Ns IV 07/02/25 01:30 Infused .Q1H1M BAUTISTA Infusion Sodium Chloride 1,000 mls @ 999 mls/hr 07/02/25 00:45 07/02/25 03:43 Ns IV 07/02/25 01:45 Infused .Q1H1M BAUTISTA Infusion Cefepime HCl 2 gm in 50 mls @ 100 mls/hr 07/02/25 00:47 07/02/25 01:36 Maxipime IV 07/02/25 01:16 Infused ONCE ONE Infusion Iohexol 85 ml 07/02/25 02:12 07/02/25 02:22 Iohexol 350 Mg/Ml 100 Ml Infus..Btl IV 07/02/25 02:13 85 ml ONCE ONE Administration Medical Decision Making Medical Decision Making MDM Narrative: Patient positive fall. Positive fever question etiology of the fever. COVID flu RSV was sent. Lactate IV fluid was ordered antibiotic was started for possible pneumonia. Chest x-ray ordered flu COVID RSV was ordered. Electrolytes ordered. CT scan of the head C-spine was ordered CTA of the chest was ordered. Will monitor carefully. Likely will require admission. My interpretation patient's EKG showed a sinus rhythm heart rate is 120 6:20 AM 07/02/2025 (Dr. Ammy Vigil, D.O.) Patient is having urinary retention, requiring Bhandari catheter placement. He is agreeable to this plan at this time. Patient found to have bilateral pleural effusions on CT. His urine is clean. We will treat as pneumonia. Given a dose of codeine with guaifenesin to help with his cough which is bronchospastic in nature. That being said, he is tachycardic and at his age I will avoid giving an albuterol treatment. Lungs do not have wheeze. He is hemodynamically stable otherwise. Suspect part of his heart rate elevation is due to fever coming back. Given another dose of Tylenol. Admitted in guarded condition. Differential Diagnosis Differential Diagnoses: The differential diagnosis associated with the presentation includes UTI, pneumonia, COVID, flu, RSV Admission/Observation Consideration of admission/observation: Escalation of care including admission/observation considered Lab Data MDM Lab Attestation statement: I reviewed the patient's lab results. 07/02/25 00:13 07/02/25 00:13 Labs: Lab Results 07/02/25 07/02/25 07/02/25 Range/Units 00:13 02:34 05:23 WBC 9.9 (4.8-10.8) X10*3/uL RBC 3.33 L (4.60-5.80) X10*6/uL Hgb 9.9 L (14.0-18.0) g/dl Hct 31.3 L (42.0-52.0) % MCV 94.0 (80.0-98.0) fL MCH 29.7 (27.0-33.0) pg MCHC 31.6 (31.0-36.0) g/dl RDW 17.6 H (11.0-16.0) % Plt Count 129 L (160-400) X10*3/uL MPV 9.2 L (9.4-12.4) fL Immature Gran % (Auto) Cancelled Neut % (Auto) Cancelled Lymph % (Auto) Cancelled [place] % (Auto) Cancelled Eos % (Auto) Cancelled Baso % (Auto) Cancelled Lymph # (Auto) Cancelled [place] # (Auto) Cancelled Eos # (Auto) Cancelled Baso # (Auto) Cancelled Abs Immat Gran (auto) Cancelled Absolute Neuts (auto) Cancelled Absolute Nucleated RBC 0.120 H (0.0-0.012) X10*3/uL Nucleated RBC % (auto) 1.2 H (0.0-0.2) /100WBC Neutrophils % (Manual) 76 H (45-73) % Band Neutrophils % 9 H (3-5) % Lymphocytes % (Manual) 5 L (20-40) % Monocytes % (Manual) 8 (2-11) % Metamyelocytes % 2 % Abs Neuts (Manual) 8.4 H (2.0-8.3) X10*3/uL Lymphocytes # (Manual) 0.5 L (1.2-4.9) X10*3/uL Monocytes # (Manual) 0.8 (0.1-1.2) X10*3/uL Metamyelocytes # 0.2 X10*3/uL Nucleated RBCs 1 H (0-0) /100WBC Toxic Vacuolation PRESENT Platelet Estimate NORMAL (NORMAL) Plt Morphology Comment NORMAL RBC Morphology NOTED Polychromasia 1+ (0-2) /OIF Sodium 140 (135-145) mmol/L Potassium 4.3 (3.3-5.1) mmol/L Chloride 103 (96-108) mmol/L Carbon Dioxide 21 L (22-29) mmol/L Anion Gap 20 (12-20) BUN 17 H (9-16) mg/dL Creatinine 1.05 (0.5-1.4) mg/dL Estim Creat Clear Calc 45.7 Estimated GFR > 60 Random Glucose 85 (60-115) mg/dL Lactic Acid 5.0 H* (0.5-2.0) mmol/L Lactic Acid F/U @ 2Hr 3.4 H* (0.5-2.0) mmol/L Lactic Acid F/U @ 4Hr (0.5-2.0) mmol/L Calcium 8.4 (8.4-10.2) mg/dL Total Bilirubin 0.6 (0.0-1.0) mg/dL AST 142 H (5-37) U/L ALT 36 (0-40) U/L Alkaline Phosphatase 129 H (39-117) U/L Total Creatine Kinase 252 H (38-174) U/L Total Protein 6.0 L (6.5-8.0) g/dL Albumin 3.4 L (3.5-5.0) g/dL Urine Color Yellow Urine Appearance Clear Urine pH 5.5 (5.0-9.0) Ur Specific [place] 1.025 (1.005-1.025) Urine Protein Trace (Neg-Trace) mg/dL Urine Glucose (UA) Negative (Negative) mg/dL Urine Ketones Negative (Negative) mg/dL Urine Blood Trace H (Negative) Urine Nitrite Negative (Negative) Ur Leukocyte Esterase Negative (Negative) Urine RBC 0-2 (0-2) /HPF Urine WBC 0-5 (0-5) /HPF Ur Squamous Epith Cells 0-2 (0-2) /HPF Urine Bacteria None Seen (None Seen) Hyaline Casts 0-2 (0-2) /LPF Influenza Type A (PCR) NEGATIVE (Negative) Influenza Type B (PCR) NEGATIVE (Negative) RSV RNA Qual (PCR) NEGATIVE (Negative) SARS-CoV-2 RNA (RT-PCR) NEGATIVE (Negative) 07/02/25 Range/Units 05:37 WBC (4.8-10.8) X10*3/uL RBC (4.60-5.80) X10*6/uL Hgb (14.0-18.0) g/dl Hct (42.0-52.0) % MCV (80.0-98.0) fL MCH (27.0-33.0) pg MCHC (31.0-36.0) g/dl RDW (11.0-16.0) % Plt Count (160-400) X10*3/uL MPV (9.4-12.4) fL Immature Gran % (Auto) Neut % (Auto) Lymph % (Auto) [place] % (Auto) Eos % (Auto) Baso % (Auto) Lymph # (Auto) [place] # (Auto) Eos # (Auto) Baso # (Auto) Abs Immat Gran (auto) Absolute Neuts (auto) Absolute Nucleated RBC (0.0-0.012) X10*3/uL Nucleated RBC % (auto) (0.0-0.2) /100WBC Neutrophils % (Manual) (45-73) % Band Neutrophils % (3-5) % Lymphocytes % (Manual) (20-40) % Monocytes % (Manual) (2-11) % Metamyelocytes % % Abs Neuts (Manual) (2.0-8.3) X10*3/uL Lymphocytes # (Manual) (1.2-4.9) X10*3/uL Monocytes # (Manual) (0.1-1.2) X10*3/uL Metamyelocytes # X10*3/uL Nucleated RBCs (0-0) /100WBC Toxic Vacuolation Platelet Estimate (NORMAL) Plt Morphology Comment RBC Morphology Polychromasia /OIF Sodium (135-145) mmol/L Potassium (3.3-5.1) mmol/L Chloride (96-108) mmol/L Carbon Dioxide (22-29) mmol/L Anion Gap (12-20) BUN (9-16) mg/dL Creatinine (0.5-1.4) mg/dL Estim Creat Clear Calc Estimated GFR Random Glucose (60-115) mg/dL Lactic Acid (0.5-2.0) mmol/L Lactic Acid F/U @ 2Hr (0.5-2.0) mmol/L Lactic Acid F/U @ 4Hr 2.9 H* (0.5-2.0) mmol/L Calcium (8.4-10.2) mg/dL Total Bilirubin (0.0-1.0) mg/dL AST (5-37) U/L ALT (0-40) U/L Alkaline Phosphatase (39-117) U/L Total Creatine Kinase (38-174) U/L Total Protein (6.5-8.0) g/dL Albumin (3.5-5.0) g/dL Urine Color Urine Appearance Urine pH (5.0-9.0) Ur Specific [place] (1.005-1.025) Urine Protein (Neg-Trace) mg/dL Urine Glucose (UA) (Negative) mg/dL Urine Ketones (Negative) mg/dL Urine Blood (Negative) Urine Nitrite (Negative) Ur Leukocyte Esterase (Negative) Urine RBC (0-2) /HPF Urine WBC (0-5) /HPF Ur Squamous Epith Cells (0-2) /HPF Urine Bacteria (None Seen) Hyaline Casts (0-2) /LPF Influenza Type A (PCR) (Negative) Influenza Type B (PCR) (Negative) RSV RNA Qual (PCR) (Negative) SARS-CoV-2 RNA (RT-PCR) (Negative) Independent Historian Clinical information obtained from an independent historian. History obtained from or confirmed by: Spouse and Other (son) External Record Review External record reviewed: Inpatient record Chronic Conditions prostate cancer with Mets. On steroids. Critical Care Time Critical Care Time Critical Care Time: Yes Total Critical Care Time: 40 Attestation: I have personally provided 40 minutes of critical care time exclusive of time spent on separately billable procedures. Time includes review of lab data, radiology results, discussion with consultants, and monitoring for potential decompensation. Interventions were performed as documented above Discharge Plan Discharge Clinical Impression: Sepsis, Pneumonia, Unwitnessed fall, Acute urinary retention, Rhabdomyolysis
[2025-07-02 00:28] LABS: NRBC Pct Auto 1.2 /100WBC (0.0-0.2)
--- OUTSIDE RECORDS SUMMARY | 2025-07-02 00:32 | XMS_ITS | Encounter Summary ---
Author Organization [facility] Address [address] [place] [address] Phone Care Team Providers Care Forming Tube Selector Name Role Phone Kashif Ly MD Primary Care Provider Self-Referred, Patient Unavailable Unavailab Chinmay Bear [facility] Unavailable Carlos Mi MD Unavailable Ean Klein MD Unavailable [phone] Encounter Details Date Type Department Care Team (Late st Contact Info) Description 09/03/2023 Ancillary Orders Outside Imaging Chinmay Rg, [facility] [address] [place] [address] [email or web address] U Social History Tobacco Use Types Packs/Day [...] on filedocumented in this encounter Care Teams Forming Tube Selector Relationship Specialty Start Date End Date Kashif Ly MD [address] [place] [address] [place] [address] PCP - General Internal Medicine 09/02/23 Self-Referred, Patient 09/02/23 Chinmay Rg [facility] [address] [place] [phone] [email or web address] Medical [email or web address] 09/02/23 Carlos Mi MD [address] [place] [id number] Urology 09/03/23 Ean Klein MD [address] [place] [id number] 09/03/23 documented as of this encounter Additional Source Comments The information contained in this document represents components of the legal health record. It is not the complete legal health record.[facility]
--- OUTSIDE RECORDS SUMMARY | 2025-07-02 00:32 | XMS_ITS | Encounter Summary ---
Author Organization [facility] Address [address] [place] [address] Phone Care Team Providers Care Manager Medical Device Name Role Phone Kashif Ly MD Primary Care Provider Self-Referred, Patient Unavailable Unavailab Chinmay Bear [facility] Unavailable Carlos Mi MD Unavailable [phone] Ean Klein MD Unavailable Encounter Details Date Type Department Care Team (Late st Contact Info) Description 09/03/2023 Ancillary Orders Outside Imaging Chinmay Rg, [facility] [address] [place] [address] [email or web address]. U Social History Tobacco Use Types Packs/Day [...] on filedocumented in this encounter Care Teams Manager Medical Device Relationship Specialty Start Date End Date Kashif Ly MD [address] [place] [address] [place] [address] PCP - General Internal Medicine 09/02/23 Self-Referred, Patient 09/02/23 Chinmay Rg [facility] [address] [place] [phone] [email or web address] Medical Oncology 09/02/23 Carlos Mi MD [address] [place] [phone] Urology 09/03/23 Ean Klein MD [address] [place] [phone] 09/03/23 documented as of this encounter Additional Source Comments The information contained in this document represents components of the legal health record. It is not the complete legal health record.[facility]
--- OUTSIDE RECORDS SUMMARY | 2025-07-02 00:32 | XMS_ITS | Encounter Summary ---
Author Organization [facility] Address [address] [place] [address] Phone Care Team Providers Care Regulatory Affairs Coordinator Name Role Phone Kashif Ly MD Primary Care Provider Self-Referred, Patient Unavailable Unavailab Chinmay Bear [facility] Unavailable [phone] Carlos Mi MD Unavailable Ean Klein MD Unavailable Encounter Details Date Type Department Care Team (Late st Contact Info) Description 09/03/2023 Ancillary Orders Outside Imaging Chinmay Rg, [facility] [address] [place] [address] [email or web address] U Social History Tobacco Use Types Packs/Day [...] on filedocumented in this encounter Care Teams Regulatory Affairs Coordinator Relationship Specialty Start Date End Date Kashif Ly MD [address] [place] [address] [place] [address] PCP - General Internal Medicine 09/02/23 Self-Referred, Patient 09/02/23 Chinmay Rg [facility] [address] [place] [phone] [email or web address] [email or web address] AT [facility] Medical Oncology 09/02/23 Carlos Mi MD [address] [place] [phone] Urology 09/03/23 Ean Klein MD [address] [place] [phone] 09/03/23 documented as of this encounter Additional Source Comments The information contained in this document represents components of the legal health record. It is not the complete legal health record.[facility]
--- OUTSIDE RECORDS SUMMARY | 2025-07-02 00:32 | XMS_ITS | Clinical Summary ---
Author Organization [facility] Address [address] [place] [address] Phone Care Team Providers Care Sports Medicine Coordinator Name Role Phone Kashif Ly MD Primary Care Provider Self-Referred, Patient Unavailable Unavailab Chinmay Bear [facility] Unavailable Carlos Mi MD Unavailable Ean Klein MD Unavailable [phone] Allergies No known active allergies Medications bicalutamide [...] file Insurance MEDICARE PART A & B [employer] MEDICARE SUPPLEMENT MEDICARE PART A & B [employer] MEDICARE SUPPLEMENT MEDICARE PART A & B [employer] MED[employer] SUPPLEMENT MEDICARE PART A & B [employer] MEDICARE SUPPLEMENT MEDICARE PART A & B [facility] EXTENSION MEDICARE SUPPLEMENT MEDICARE PART A & B [facility] EXTENSION MEDICARE SUPPLEMENT Care Teams Sports Medicine Coordinator Relationship Specialty Start Date End Date Kashif Ly MD [address] [place] [address] [address] PCP - General Internal Medicine 09/02/23 Self-Referred, Patient 09/02/23 Chinmay Rg [facility] [address] [place] [phone] [email or web address] Medical Oncology 09/02/23 Carlos Mi MD [address] [place] [phone] Urology 09/03/23 Ean Klein MD [address] [place] [phone] 09/03/23 Additional Source Comments The information contained in this document represents components of the legal health record. It is not the complete legal health record.[facility]
--- OUTSIDE RECORDS SUMMARY | 2025-07-02 00:32 | XMS_ITS | Clinical Summary ---
Author Organization [facility] Address [address] [place] [address] Phone Care Team Providers Care Security Flex Utility Officer Name Role Phone Unavailable Primary Care Provider Unavailabl e Encounters Date Type Department Care Team Description 04/13/2025 1:40 PM EDT - 04/13/2025 11:59 PM EDT Hospital Encounter [facility] PET Scan [address] [place] [address] Prostate cancer (CMS/FORMERLY [facility] V24, CMS/FORMERLY [facility] V28) Discharge Disposition: Home or Self Care [...] Routine 04/13/2025 6:32 PM EDT Prostate cancer ([facility] V24, [facility] V28) from Last 3 Months Results * [...] Signed Date: 04/18/2025 10:38 ET Workstation ID: [id number] Transcribed By: Self Edit Transcribed Date: 04/18/2025 [...] not designed to produce and cannot replace hfyiy-pq-lwo-art true diagnostic CT examination with specific protocols. [...] CT not designed toproduce and cannot replace uiyby-lt-ior-art true diagnostic CT examinationwith specific protocols. Standardized [...] Signed Date: 04/18/2025 10:38 ET Workstation ID: [id number] Transcribed By: Self Edit Transcribed Date: 04/18/2025 06:23 ET Renée Klein MD IMG NM PROCEDURES Final Result from Last 3 Months Insurance MEDICARE [facility]
[2025-07-02 00:39] LABS: Anion Gap 20 (12-20)
[2025-07-02 00:41] LABS: Alanine Aminotransferase 36 U/L (0-40); Albumin Level 3.4 g/dL (3.5-5.0); Alkaline Phosphatase 129 U/L (39-117); Aspartate Amino Transferase 142 U/L (5-37); Blood Urea Nitrogen 17 mg/dL (9-16); Calcium 8.4 mg/dL (8.4-10.2); Carbon Dioxide 21 mmol/L (22-29); Chloride 103 mmol/L (96-108); Creatinine Clr Calc Pharmacy 45.7; Estimated Glomerular Filt Rate > 60; Potassium 4.3 mmol/L (3.3-5.1); Sodium 140 mmol/L (135-145); Total Protein 6.0 g/dL (6.5-8.0)
[2025-07-02 00:50] LABS: Band Neutrophils Percent 9 % (3-5); Lymphocytes Absolute Manual 0.5 X10*3/uL (1.2-4.9); Lymphocytes Percent Manual 5 % (20-40); Metamyelocytes Absolute 0.2 X10*3/uL; Metamyelocytes Percent 2 %; Monocytes Absolute Manual 0.8 X10*3/uL (0.1-1.2); Monocytes Percent Manual 8 % (2-11); Neutrophils Absolute Manual 8.4 X10*3/uL (2.0-8.3); Neutrophils Percent Manual 76 % (45-73)
[2025-07-02 00:52] LABS: Polychromasia 1+ (0-2) /OIF; RBC Morphology NOTED; Toxic Vacuolation PRESENT
[2025-07-02] MEDS: cefEPime HCl/D5W 2 GM/50 ML PIGGYBACK IV ×3 (01:06→16:13)
[2025-07-02 01:08] LABS: Resp Syncy Virus RNA Qual PCR NEGATIVE (Negative); SARS COV2 PCR INHOUSE NEGATIVE (Negative)
[2025-07-02 02:18] LABS: Reflex Lactate? Lactic Acid Added
[2025-07-02] MEDS: iohexoL 350 MG/ML 100 ML INFUS..BTL 85 ML IV (02:22)
--- NOTE | 2025-07-02 02:32 | PC.NURSE ---
fluids still infusing at this time.pt was taken to ct for numerous studies.
--- NOTE | 2025-07-02 03:12 | PC.NURSE ---
Critical lab: lactic 3.4, provider aware.
[2025-07-02 03:13] LABS: ~Lactic Acid-LAB USE ONLY 3.4 mmol/L (0.5-2.0)
[2025-07-02 04:52] LABS: Reflex Lactate? 2 Y
--- NOTE | 2025-07-02 04:54 | PC.NURSE ---
pt has not been able to obtain UA despite 2L of fluids. Pt hesitant on straight cath. MD aware. RN bladder scanned and pt has at least 510mLs in bladder. made aware.
[2025-07-02 05:31] LABS: Appearance Urine Clear; Glucose Urine UA Negative (Negative); PH 5.5 (5.0-9.0); Specific Gravity - Urine 1.025 (1.005-1.025); UMIC TRIGGER UACC YES
--- NOTE | 2025-07-02 05:46 | PC.NURSE ---
pt tolerated 16 Frisian medina well. Urine draining into bag. UA sample sent to lab.
--- NOTE | 2025-07-02 06:00 | P.HPHOSP_ITS ---
History of Present Illness Date of Service: 07/02/25 Attending physician on admission: Lenard Palomino Chief Complaint: s/p fall Patient is an 85-year-old male with past medical history prostate cancer with metastases to the bone currently under treatment with Oncology, GERD, recent pneumonia requiring admission to the hospital, generalized weakness, colitis/ recent CDIFF, CM, CAD BIBA from home s/p unwitnessed fall. Patient was on the ground for 2-3 hours and denies any hit to the head or LOC. Patient is only on aspirin and no other blood thinners. The patient reports that he lives alone, does not wear an emergency device, and that is phone . There was a dropped phone call to 911 so the police did arrive for further evaluation. The neighbor across the street was away so they were unable to obtain a allan. Police started calling local relatives and finally a nephew arrived and he was able to open house. Patient had his left arm lodged between the bed and the nightstand table and was reporting some mild numbness with a noted mild skin tear. Patient denied any other injuries. Patient did state that he was not able to get up on his own. Patient denies any loss of bowel or bladder control. Workup in the ED included cervical spine and head CT which were negative for any acute findings. Chest CTA was negative for PE but noted small to moderate layering bilateral pleural effusions and pulmonary edema. No evidence of chest lymphadenopathy. Lactic acid 5.[address] of the abdomen and pelvis was done and noted a possible new colonic lesion/neoplasm along with liver lesions. Patient comes in with evidence of sepsis including the lactic acidosis and bandemia of 9. Patient has a low-grade temp. Patient also tachycardic but no hypotension or hypoxia. Patient is experiencing chills on exam. Patient is not having any chest pain or shortness of breath at rest. Patient denies any diarrhea. Appetite is fair. Patient has lost weight with prostate cancer treatment. Patient states he is determined to return home and live alone and is not interested in any alternative arrangements at this time. Review of Systems 2 Review of Systems: Patient denies any chest pain, shortness breath at rest, abdominal pain, nausea or vomiting. Patient is not having any diarrhea or constipation issues. Appetite is fair. Per family member patient has lost weight since starting treatment for prostate cancer. Patient states he has had falls before but not to the point where he could not get up on his own. Yes all other systems are reviewed and are negative [facility] Medical History Advance care planning Debility Hearing loss GERD without esophagitis Constipation Prostate cancer Prostate cancer metastatic to bone Hemorrhoids Elevated PSA Cognitive capacity: Alert and orientated x3 Functional capacity: uses cane/walker Family History Mother No problems noted. Father No problems noted. Surgical History Hx of prostate biopsy Social History Household Members: None Housing: House Are you a primary career technology teacher to a significant other at home: No Do you presently have visiting nurse or other home services: Yes Patient Tobacco Use Status: Never used Tobacco Smoked in Last 30 Days: No e-Cigarette/Vaping Use: Never Used Use of substances other than those prescribed or required for medical reasons: No Advance Directives: Yes Advance Directives on File: Yes Advance Directives Date on File: 06/25/24 Do you have a plan to hurt others: No Plan Nutrition Risks: No Nutritional Risk service: No 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 Cognitive needs: No Hearing needs: No (pt throw them away, he's not using them ) Vision needs: Yes (rx ) Ebola Risk: Travel/Contact With Anyone From Affected Area/s: No Has Patient Experienced Ebola Symptoms: No Meds Allergies Allergy/AdvReac Type Severity Reaction Status Date / Time amoxicillin (From Augmentin) Allergy Severe tongue/facial Verified 07/01/25 23:52 swelling clavulanic acid (From Allergy Severe tongue/facial Verified 07/01/25 23:52 Augmentin) swelling Home Medications ?Medication ?Instructions ?Recorded ?Confirmed ?Last Taken ?Type aspirin 81 mg chewable tablet 1 tab PO DAILY 06/04/25 06/29/25 06/07/25 History omeprazole 20 mg capsule,delayed 20 mg PO DAILY@0630 P RN Acid Reflux 06/04/25 06/29/25 Unknown History release ondansetron 8 mg disintegrating 8 mg PO Q8H PRN nausea /vomiting 06/04/25 06/29/25 Unknown History tablet multivitamin 1 tab PO DAILY 06/29/2512/17 Unknown History Physical Exam 2 Vital Signs and Narrative: Vital Signs: Last Vital Signs Temp 99 F 07/02/25 04:00 Pulse 108 H 07/02/25 04:00 Resp 20 07/02/25 04:00 BP 105/61 07/02/25 04:00 Pulse Ox 93 07/02/25 04:00 O2 Del Method Room Air 07/02/25 04:00 BMI result Body Mass Index 22.6 Alert and orientated X3, able to give good history. Neuro: CN II-X11 intact, no deficits, visual acuity intact EYES: PERRLA, EOM intact, sclerae not, conjunctiva pink ENT: hearing intact, no issues with swallowing, uvula midline, lips moist, nares patent no epistaxis Cardiac: S1 S2 RRR, tachycardic 110, no murmur, no JVD, no edema in Lower ext Pulmonary: lungs diminished bilaterally Abdominal: BS active in all 4 quadrants, no guarding, tenderness, rebounding MSK: strength 3-4/5 upper and lower extremities : no CVA tenderness no bladder distension Extremities: no edema in lower extremities, PT and DP pulses palpable +2 Psych: mood stable, judgement and insight good Skin: Skin tear left arm Results Labs 07/02/25 00:13 07/02/25 00:13 Labs: Laboratory Results - last 24 hr 07/02/25 07/02/25 07/02/25 00:13 02:34 05:23 MCV 94.0 MCH 29.7 MCHC 31.6 RDW 17.6 H Plt Count 129 L MPV 9.2 L Immature Gran % (Auto) Cancelled Neut % (Auto) Cancelled Lymph % (Auto) Cancelled [place] % (Auto) Cancelled Eos % (Auto) Cancelled Baso % (Auto) Cancelled Lymph # (Auto) Cancelled [place] # (Auto) Cancelled Eos # (Auto) Cancelled Baso # (Auto) Cancelled Abs Immat Gran (auto) Cancelled Absolute Neuts (auto) Cancelled Absolute Nucleated RBC 0.120 H Nucleated RBC % (auto) 1.2 H Neutrophils % (Manual) 76 H Band Neutrophils % 9 H Lymphocytes % (Manual) 5 L Monocytes % (Manual) 8 Metamyelocytes % 2 Abs Neuts (Manual) 8.4 H Lymphocytes # (Manual) 0.5 L Monocytes # (Manual) 0.8 Metamyelocytes # 0.2 Nucleated RBCs 1 H Toxic Vacuolation PRESENT Platelet Estimate NORMAL Plt Morphology Comment NORMAL RBC Morphology NOTED Polychromasia 1+ (0-2) Anion Gap 20 Estim Creat Clear Calc 45.7 Estimated GFR > 60 Random Glucose 85 Lactic Acid 5.0 H* Lactic Acid F/U @ 2Hr 3.4 H* Calcium 8.4 Total Bilirubin 0.6 AST 142 H ALT 36 Alkaline Phosphatase 129 H Total Creatine Kinase 252 H Total Protein 6.0 L Albumin 3.4 L Urine Color Yellow Urine Appearance Clear Urine pH 5.5 Ur Specific [place] 1.025 Urine Protein Trace Urine Glucose (UA) Negative Urine Ketones Negative Urine Blood Trace H Urine Nitrite Negative Ur Leukocyte Esterase Negative Urine RBC 0-2 Urine WBC 0-5 Ur Squamous Epith Cells 0-2 Urine Bacteria None Seen Hyaline Casts 0-2 Influenza Type A (PCR) NEGATIVE Influenza Type B (PCR) NEGATIVE RSV RNA Qual (PCR) NEGATIVE SARS-CoV-2 RNA (RT-PCR) NEGATIVE Assessment and Plan (1) Sepsis: Qualifiers: Sepsis acute organ dysfunction status: unspecified Sepsis type: sepsis due to unspecified organism Qualified Code(s): A41.9 - Sepsis, unspecified organism Status: Acute (2) Fall: Qualifiers: Encounter type: initial encounter Qualified Code(s): W19.XXXA - Unspecified fall, initial encounter Status: Acute Plan Patient is an 85-year-old male with past medical history prostate cancer with metastases to the bone currently under treatment with Oncology, GERD, recent pneumonia requiring admission to the hospital, generalized weakness, colitis, CM, CAD BIBA from home s/p unwitnessed fall. Patient was on the ground for 2-3 hours and denies any hit to the head or LOC. Please see HPI for further details. Patient is only on aspirin and no other blood thinners. Patient being admitted for sepsis with additional issues. Sepsis Patient will continue cefepime 2 g q.8 hours, vancomycin added Recent C diff, currently no diarrhea Blood cultures pending Telemetry, continuous pulse ox: No current issues with hypoxia Trend lactic acid: 5.0 to 2.9 UA negative for UTI Viral studies negative S/p fall with mild rhabdomyolysis Increasing generalized weakness secondary to advanced cancer with metastases Patient currently deferring need for STR, PT in the home, and is determined to remain home living alone IV fluids continue PT eval Fall prevention measures in place Likely due to generalized weakness Cm consult to review potential needs in the home that Small bilateral pleural effusion/ pulmonary edema/ possible unresolved PNA Patient is started on cefepime in the ED, vancomycin added Lasix 10 mg IV x1 BNP pending Patient currently on room air Supportive care to include antitussives and duo nebs Prostate CA with mets to bone, liver Follows with oncology, oncology consulted No current pain issues Colonic lesion/ neoplasm noted on today's CT GI consulted GERD Continue omeprazole DVT prophylaxis: Lovenox Med rec pending DNR DNI Patient requires at least 2 midnight stay for expert consultation with Oncology and GI and treatment with IV antibiotics for possible unresolved pneumonia and monitoring for pulmonary edema. Quality Stroke Does the patient have a stroke diagnosis?: No Reason for No Anti-thrombotic by Day Two: N/A - Med Ordered VTE Prior VTE?: No VTE Risk Level:: Medical - moderate - high VTE Device Contraindication: N/A - Device Ordered VTE Drug Contraindication: N/A - Med Ordered
[2025-07-02 06:09] LABS: ~Lactic Acid-LAB USE ONLY 2.9 mmol/L (0.5-2.0)
[2025-07-02] MEDS: Lactated Ringers 1,000 ML 100 ML IVCONT (06:15)
[2025-07-02] MEDS: Furosemide 20 MG/2 ML VIAL 10 MG IVPUSH ×2 (06:24→18:03)
--- NOTE | 2025-07-02 06:38 | HO.NURTONUR ---
85 y/o M biba after fall at home. pt was on ground for 2-3 hrs. no thinners or LOC. Pt is AxOx4, typically independent at baseline. recent admission for pneumonia/flu. pt has prostate CA and bone mets- on steroids. Pt has been tachy since arrival in the 120-130 range. Has met sepsis criteria. rectal temp upon arrival was 102. Pt has 2 IV accesses: #22 RFA & #20 L bicep. Respiratory panel ( -), ct of head, cervical spine & abd/pelvis also ( - ). chest cta (- ). UA also ( - ). pt had a lactic of 5.0, 3.4 & currently 2.9. pt had a bowel movement on bed mao. Bladder scanned @ 0500, had over 510mLs. 16 F medina placed- tolerated well- draining well. Pt has LR infusing at 100mLs in the left IV access. Dayshift RN to continue with any further orders per SEP.
[2025-07-02 06:50] LABS: Magnesium 1.8 mg/dL (1.6-2.6)
--- NOTE | 2025-07-02 07:26 | HO.PM.IMPN ---
Subjective Subjective Date of Service: 07/02/25 Interval History: Patient continued to be hypotensive despite aggressive fluid resuscitation , map consistently less than 65 ICU consulted Daughter and patient at the bedside would want brief pressor support if needed Patient being transferred to ICU which we greatly appreciate Review of Systems Review of Systems: Yes all other systems are reviewed and are negative Physical Exam Exam: Exam: Appearance: Alert.? Oriented X3.? cvs: rrr, [id number] , no murmur res: Bilateral crackles abd: no rebound or guarding ,nt, bs present. neuro: axo3 , nonfocal. Vital Signs: Vital Signs: Last Vital Signs Temp 101.1 F H 07/02/25 07:22 Pulse 117 H 07/02/25 07:22 Resp 20 07/02/25 07:22 BP 107/57 L 07/02/25 07:22 Pulse Ox 93 07/02/25 07:22 O2 Del Method Room Air 07/02/25 07:22 BMI result Body Mass Index 22.6 Objective Data Active Medications Acetaminophen (Acetaminophen 325 Mg Tablet) 650 mg PO Q6H PRN PRN Reason: Pain, Mild 1-3,fever,headache Last Admin: 07/02/25 06:24 Dose: 650 mg Documented By: ANISH Albuterol/Ipratropium (Albuterol/Iprat 2.5/0.5mg 3 Ml Ampul.Neb) 3 ml INHALE Q4H PRN PRN Reason: Shortness of Breath/Wheezing Calcium Carbonate (Calcium Carbonate 750 Mg Tab.Chew) 750 mg PO Q4H PRN PRN Reason: Heartburn Enoxaparin Sodium (Enoxaparin Sodium 40 Mg/0.4 Ml Syringe) 40 mg SUBCUT Q24H BAUTISTA Guaifenesin (Guaifenesin 200 Mg/10 Ml 10 Ml Liquid) 10 ml PO Q4H PRN PRN Reason: Cough Lactated Ringer's (Lr) 1,000 mls @ 100 mls/hr IVCONT .Q10H BAUTISTA Last Admin: 07/02/25 06:15 Dose: 100 mls/hr Documented By: ANISH Cefepime HCl (Maxipime) 2 gm in 50 mls @ 100 mls/hr IV Q8H BAUTISTA Vancomycin HCl 1,000 mg/Vancomycin HCl 750 mg/ Sodium Chloride 535 mls @ 267.5 mls/hr IV ONCE ONE Stop: 07/02/25 09:59 Magnesium Hydroxide (Milk Of Magnesia 30 Ml Oral.Susp) 30 ml PO DAILY PRN PRN Reason: Constipation Melatonin (Melatonin 3 Mg Tablet) 6 mg PO BEDTIME PRN PRN Reason: Insomnia Ondansetron HCl (Ondansetron Hcl 4 Mg/2 Ml Vial) 4 mg IVPUSH Q8H PRN PRN Reason: Nausea and Vomiting Pharmacy Consult (Consult Rx Vancomycin Dosing) 1 each MISCELLANE DAILY PRN PRN Reason: Consult order Polyethylene Glycol (Polyethylene Glycol 3350 17 Gm Powd.Pack) 17 gm PO DAILY PRN PRN Reason: Constipation Senna (Sennosides 8.6 Mg Tablet) 17.2 mg PO BEDTIME BAUTISTA Sodium Chloride (0.9 % Sodium Chloride Flush 3 Ml Syringe) 3 ml IVFLUSH QSHIFT BAUTISTA Labs 07/02/25 00:13 07/02/25 00:13 Labs: Laboratory Results - last 24 hr 07/02/25 07/02/25 07/02/25 00:13 02:34 05:23 MCV 94.0 MCH 29.7 MCHC 31.6 RDW 17.6 H Plt Count 129 L MPV 9.2 L Immature Gran % (Auto) Cancelled Neut % (Auto) Cancelled Lymph % (Auto) Cancelled [place] % (Auto) Cancelled Eos % (Auto) Cancelled Baso % (Auto) Cancelled Lymph # (Auto) Cancelled [place] # (Auto) Cancelled Eos # (Auto) Cancelled Baso # (Auto) Cancelled Abs Immat Gran (auto) Cancelled Absolute Neuts (auto) Cancelled Absolute Nucleated RBC 0.120 H Nucleated RBC % (auto) 1.2 H Neutrophils % (Manual) 76 H Band Neutrophils % 9 H Lymphocytes % (Manual) 5 L Monocytes % (Manual) 8 Metamyelocytes % 2 Abs Neuts (Manual) 8.4 H Lymphocytes # (Manual) 0.5 L Monocytes # (Manual) 0.8 Metamyelocytes # 0.2 Nucleated RBCs 1 H Toxic Vacuolation PRESENT Platelet Estimate NORMAL Plt Morphology Comment NORMAL RBC Morphology NOTED Polychromasia 1+ (0-2) Anion Gap 20 Estim Creat Clear Calc 45.7 Estimated GFR > 60 Random Glucose 85 Lactic Acid 5.0 H* Lactic Acid F/U @ 2Hr 3.4 H* Lactic Acid F/U @ 4Hr Calcium 8.4 Magnesium 1.8 Total Bilirubin 0.6 AST 142 H ALT 36 Alkaline Phosphatase 129 H Total Creatine Kinase 252 H NT-Pro-B Natriuret Pep 5708.9 H Total Protein 6.0 L Albumin 3.4 L TSH 1.93 Urine Color Yellow Urine Appearance Clear Urine pH 5.5 Ur Specific [place] 1.025 Urine Protein Trace Urine Glucose (UA) Negative Urine Ketones Negative Urine Blood Trace H Urine Nitrite Negative Ur Leukocyte Esterase Negative Urine RBC 0-2 Urine WBC 0-5 Ur Squamous Epith Cells 0-2 Urine Bacteria None Seen Hyaline Casts 0-2 Influenza Type A (PCR) NEGATIVE Influenza Type B (PCR) NEGATIVE RSV RNA Qual (PCR) NEGATIVE SARS-CoV-2 RNA (RT-PCR) NEGATIVE 07/02/25 05:37 MCV MCH MCHC RDW Plt Count MPV Immature Gran % (Auto) Neut % (Auto) Lymph % (Auto) [place] % (Auto) Eos % (Auto) Baso % (Auto) Lymph # (Auto) [place] # (Auto) Eos # (Auto) Baso # (Auto) Abs Immat Gran (auto) Absolute Neuts (auto) Absolute Nucleated RBC Nucleated RBC % (auto) Neutrophils % (Manual) Band Neutrophils % Lymphocytes % (Manual) Monocytes % (Manual) Metamyelocytes % Abs Neuts (Manual) Lymphocytes # (Manual) Monocytes # (Manual) Metamyelocytes # Nucleated RBCs Toxic Vacuolation Platelet Estimate Plt Morphology Comment RBC Morphology Polychromasia Anion Gap Estim Creat Clear Calc Estimated GFR Random Glucose Lactic Acid Lactic Acid F/U @ 2Hr Lactic Acid F/U @ 4Hr 2.9 H* Calcium Magnesium Total Bilirubin AST ALT Alkaline Phosphatase Total Creatine Kinase NT-Pro-B Natriuret Pep Total Protein Albumin TSH Urine Color Urine Appearance Urine pH Ur Specific [place] Urine Protein Urine Glucose (UA) Urine Ketones Urine Blood Urine Nitrite Ur Leukocyte Esterase Urine RBC Urine WBC Ur Squamous Epith Cells Urine Bacteria Hyaline Casts Influenza Type A (PCR) Influenza Type B (PCR) RSV RNA Qual (PCR) SARS-CoV-2 RNA (RT-PCR) Assessment and Plan (1) Septic shock: Status: Acute Plan Patient is an 85-year-old male with past medical history prostate cancer with metastases to the bone currently under treatment with Oncology, GERD, recent admissions due to septic shock due to pneumonia , generalized weakness, colitis, CM, CAD BIBA from home s/p unwitnessed fall, unknown downtime. Patient continued to be hypotensive despite aggressive fluid and antibiotic regimen and is being transferred to ICU for further medical management. Sepsis workup being done, not responding to IV antibiotics and IV fluids Patient being transferred to ICU for pressor support Continue IV antibiotics Continue following sepsis workup S/p fall with rhabdomyolysis No need to trend CPK Increasing generalized weakness secondary to advanced cancer with metastases and recent hospitalizations PT eval prior to discharge, short-term rehab Small bilateral pleural effusion/ pulmonary edema/ possible unresolved PNA CTA PE -ve Patient is started on cefepime in the ED, vancomycin added Prostate CA with mets to bone, liver Follows with oncology, oncology consulted No current pain issues Colonic lesion/ neoplasm noted on today's CT GI consulted GERD Continue omeprazole DVT prophylaxis: Lovenox Med rec pending DNR DNI Pt requires pressors and is being transferred to ICU for further medical mx. Quality Stroke Does the patient have a stroke diagnosis?: No Reason for No Anti-thrombotic by Day Two: N/A - Med Ordered VTE Prior VTE?: No VTE Risk Level:: Medical - moderate - high VTE Device Contraindication: N/A - Device Ordered VTE Drug Contraindication: N/A - Med Ordered
[2025-07-02] MEDS: vancomycin HCL 1,000 MG, vancomycin HCL 750 MG in 0.9 % Sodium Chloride 500 ML 267.5 MG IV (08:23)
--- NOTE | 2025-07-02 08:44 | PHA.PROG ---
Admission Date/Time: July 02, 2025 05:56 Indication:Sepsis Weight in k.317 kg Adjusted body weight in Kg: [place] body weight in Kg: Obesity Dosing Indication % IBW: Serum Creatinine - Last 168 Hours 07/02/25 00:13 Creatinine 1.05 Estimated CrCl and GFR - Last 168 Hours 07/02/25 00:13 Estim Creat Clear Calc 45.7 Estimated GFR > 60 Vancomycin Loading Dose: 1750mg Current Vancomycin Dosing Regimen: 1000mg q24h Vancomycin Monitoring using AUC goal of 400 - 600 range with trough as surrogate marker: 482 mg/L*hr Date and Time for next Vancomycin Level to be drawn: 07/05/2025 @ 0600 Pharmacist Comments on Vancomycin Plan: Vancomycin dosing will take advantage of Showpad as a clinical decision support tool that uses Bayesian modeling to calculate individual patient's pharmacokinetic parameters and forecast the patient's drug concentration time course with the target goal AUC 24 range of 400 - 600 mg/L/hr.
--- NOTE | 2025-07-02 09:30 | PC.NURSE ---
Assumed care of patient at 0645. Patient with mild fever of 101.1. Ibuprofen given per SEP. Bhandari catheter intact with adequate draining. o2 saturation around 89-92%, given 2L NC with good effect. Antibiotics infusing. Patient changed over in hospital bed. No needs at this time.
--- NOTE | 2025-07-02 09:57 | PHA.MEDREC ---
Pharmacy Consult ? Medication Reconciliation Pharmacy has completed the medication reconciliation. Spoke with and pt at bedside. Pt's prednisone dose was reduced to 4mg last Wednesday by Dr. Klein, oncology.
--- NOTE | 2025-07-02 11:21 | ECG_ITS ---
Test Reason : tachycardia Blood Pressure : */* mmHG Vent. Rate : 111 BPM Atrial Rate : 111 BPM P-R Int : 132 ms QRS Dur : 82 ms QT Int : 382 ms P-R-T Axes : 45 -1 100 degrees QTcB Int : 519 ms Sinus tachycardia Possible Anterior infarct , age undetermined Abnormal ECG When compared with ECG of 01-Jul-2025 23:59, No significant change was found Referred By: Anabell Agustin Electronically Signed By: TOMMY BABCOCK MD
--- NOTE | 2025-07-02 11:56 | PM.EVENT ---
Event Note Date of Service: 07/02/25 Event Note: Patient is a 85 Y M w/ hypertension c/b coronary artery disease c/b myocardial infarction s/p stent, recent admission for pneumonia d/t influenza, and metastatic prostate cancer to bone on chemotherapy and followed?by [facility] oncology, presenting to ED on 07/02 after found down; ED trauma work-up grossly unremarkable, however found to have fever, initially admitted medicine, though developed?hypotension necessitating vasopressors N: no acute issues CV: hypotension, c/f septic shock, norepinephrine gtt as needed R: no acute issues; to closely monitor GI: no acute issues; of note, CT A/P c/f new metastasis to liver : metastatic prostate cancer H: no acute issues; chemical DVT prophylaxis ID: c/f septic shock, unclear source, to follow-up BCx 07/02 E: no acute issues; to monitor hypo-/hyper-glycemia P: no acute issues S: DNR/DNI, daily updates given to daughter/HCP Time Spent With Patient Time: Total time managing care of this patient today ____ minutes.
[2025-07-02] MEDS: Albumin Human 25 % 100 ML 133.33 ML IV (12:01)
[2025-07-02] MEDS: Albumin Human 25 % 100 ML IV (13:00)
--- NOTE | 2025-07-02 13:55 | MHC.CM.PN ---
Met w/pt and dtr to review d/c planning needs: pt resides alone, has used [facility] in the recent past, has no services or DME at this time. Family is supportive and can assist w/care needs/transportation. Pt receptive to [facility] referral - dtr to transport pt to home. IMM in chart, HCP requested.
[2025-07-02 14:09] LABS: Reflex Lactate? Lactic Acid Added
[2025-07-02 14:53] LABS: ~Lactic Acid-LAB USE ONLY 5.5 mmol/L (0.5-2.0)
[2025-07-02] MEDS: 0.9 % Sodium Chloride Flush 3 ML SYRINGE IVFLUSH (16:06)
[2025-07-02 16:32] LABS: Reflex Lactate? 2 Y
--- NOTE | 2025-07-02 16:55 | P.CNHO_ITS ---
Subjective - Subjective Chief complaint: Consult for: Prostate carcinoma with bone metastases. Patient: known to practice within the last 3 years Consult date: 07/02/25 Primary Care Provider: Paul Junior MD Educational Guidance Counselor Utilized?: No - Maltese Speaking HPI - Consult Narrative Reason for consult: Consult for: Prostate carcinoma with bone metastases. Narrative: Harshad Salguero is a 85 year old gentleman, with history of prostate cancer with bone metastases. he had a recent pneumonia requiring admission to the hospital, generalized weakness, colitis/ recent CDIFF, CM, CAD BIBA from home s/p unwitnessed fall. He was on the ground for 2-3 hours and denies any hit to the head or LOC. Patient is only on aspirin and no other blood thinners. He lives alone, does not wear an emergency device, and that unfortunately his phone . There was a dropped phone call to 911 so the police did arrive for further evaluation. The neighbor across the street was away so they were unable to obtain a allan. Police started calling local relatives and finally a nephew arrived and he was able to open house. He had his left arm lodged between the bed and the nightstand table and was reporting some mild numbness with a noted mild skin tear. He denied any other injuries. Patient was not able to get up on his own. Patient denies any loss of bowel or bladder control. Patient denies any chest pain or shortness of breath at rest. Patient denies any diarrhea. Appetite is fair. Patient has lost weight with prostate cancer treatment. Workup in the ED included: Cervical spine and head CT which were negative for any acute findings. Chest CTA was negative for PE but noted small to moderate layering bilateral pleural effusions and pulmonary edema. No evidence of chest lymphadenopathy. Lactic acid 5.[address] of the abdomen and pelvis was done and noted: A possible new colonic lesion/neoplasm along with liver lesions. Patient comes in with evidence of sepsis including the lactic acidosis and bandemia of 9. Patient has a low-grade temp. Patient also tachycardic but no hypotension or hypoxia. Patient was experiencing chills. Review of Systems - Constitutional Reports no additional constitutional complaints, Reports chills, Reports fatigue, Reports fever(s), Reports lack of energy, Reports malaise, Reports poor appetite, Reports weakness, Reports weight loss - Eyes Reports no additional eye complaints - ENT Reports no additional ear, nose, mouth, and throat complaints - Cardiovascular Reports no additional cardiovascular complaints - Respiratory Reports no additional respiratory complaints - Gastrointestinal Reports no additional gastrointestinal complaints - Genitourinary Genitourinary: Reports no additional male genitourinary complaints - Musculoskeletal Reports no additional musculoskeletal complaints - Integumentary/Breasts Skin/Breast: Reports no additional skin complaints - Neurologic Reports no additional neurologic complaints - Psychiatric Reports no additional psychiatric complaints - Endocrine Reports no additional endocrine complaints - Hematologic/Lymphatic Reports no additional hematologic/lymphatic complaints - Allergic/Immunologic Reports no additional allergic/immunologic complaints Oncology Screenings - ECOG Performance Status ECOG Performance Status: 2 [facility] Medical History: Medical History (Last Reviewed 07/02/25 @ 06:45 by CHRIS Flannery) Advance care planning Constipation Debility Elevated PSA GERD without esophagitis Hearing loss Hemorrhoids Prostate cancer Prostate cancer metastatic to bone Functional capacity: uses cane/walker Patient : No Family History: Family History (Last Reviewed 07/02/25 @ 06:45 by CHRIS Flannery) Mother No problems noted. Father No problems noted. 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 - Travel History Ebola Risk: Travel/Contact With Anyone From Affected Area/s: No Has Patient Experienced Ebola Symptoms: No Home Medications and Allergies Current Medications: Current Medications Albuterol/Ipratropium (Albuterol/Iprat 2.5/0.5mg 3 Ml Ampul.Neb) 3 ml INHALE Q4H PRN PRN Reason: Shortness of Breath/Wheezing Docusate Sodium (Docusate Sodium 100 Mg Capsule) 100 mg PO BID PRN PRN Reason: Constipation Last Admin: 07/02/25 16:05 Dose: 100 mg Enoxaparin Sodium (Enoxaparin Sodium 40 Mg/0.4 Ml Syringe) 40 mg SUBCUT Q24H [facility] Last Admin: 07/02/25 08:32 Dose: 40 mg Furosemide (Furosemide 20 Mg/2 Ml Vial) 10 mg IVPUSH ONCE ONE; Protocol Stop: 07/02/25 18:01 Cefepime HCl (Maxipime) 2 gm in 50 mls @ 100 mls/hr IV Q8H [facility] Last Admin: 07/02/25 16:13 Dose: 100 mls/hr Vancomycin HCl 1,000 mg/ (Sodium Chloride) 270 mls @ 270 mls/hr IV Q24H [facility] Norepinephrine Bitartrate (Levophed) 8 mg in 250 mls @ 0 mls/hr IVCONT .Q0M [facility]; Protocol Last Titration: 07/02/25 12:38 Dose: 0.07 mcg/kg/min, 8.57 mls/hr Acetaminophen (Ofirmev) 1,000 mg in 100 mls @ 400 mls/hr IV Q6H PRN PRN Reason: Fever Last Infusion: 07/02/25 16:32 Dose: Infused Pharmacy Consult (Consult Rx Vancomycin Dosing) 1 each MISCELLANE DAILY PRN PRN Reason: Consult order Prednisone (Prednisone 1 Mg Tablet) 4 mg PO DAILY [facility] Last Admin: 07/02/25 16:05 Dose: 4 mg Sodium Chloride (0.9 % Sodium Chloride Flush 3 Ml Syringe) 3 ml IVFLUSH QSHIFT [facility] Last Admin: 07/02/25 16:06 Dose: 3 ml Home Medications ?Medication ?Instructions ?Recorded ?Confirmed ?Type aspirin 81 mg chewable tablet 1 tab PO DAILY 06/04/25 07/02/25 History ondansetron 8 mg disintegrating 8 mg PO Q8H PRN nausea/vomiting 06/04/25 07/02/25 History tablet multivitamin 1 tab PO DAILY 06/29/25 07/02/25 History calcium carbonate (Tums) 300 mg PO BID PRN Stomach Upset 07/02/25 07/02/25 History ibuprofen 200 mg tablet (Advil) 200 - 400 mg PO Q6H PRN Pain 07/02/25 History Allergies Allergy/AdvReac Type Severity Reaction Status Date / Time amoxicillin (From Augmentin) Allergy Severe tongue/facial Verified 07/01/25 23:52 swelling clavulanic acid (From Allergy Severe tongue/facial Verified 07/01/25 23:52 Augmentin) swelling Physical Exam Vital signs: Vital Signs Temp 100.8 F H 07/02/25 16:51 Pulse 115 H 07/02/25 16:51 Resp 25 H 07/02/25 16:51 BP 93/53 L 07/02/25 16:51 Pulse Ox 94 07/02/25 16:51 O2 Del Method Nasal Cannula 07/02/25 16:51 O2 Flow Rate 2 07/02/25 16:51 Intake & Output 07/01/25 07/02/25 07/02/25 18:59 06:59 18:59 Intake Total 2049 1885.51 / 1885.51 Output Total 1355 / 1355 Balance 2049 530.51 / 530.51 Urine Output (Average ml/kg/hr) 1.73 Intake: Intake, IV Amount 2049 1885.51 / 1885.51 0.9 % Sodium Chloride 1,000 ml 2000 / 2000 @ 999 mls/hr IV .Q1H1M [facility] Rx#: [id number] Acetaminophen 1,000 mg In 100 100 / 100 ml @ 400 mls/hr IV Q6H PRN Rx#: [id number] Albumin Human 25 % 100 ml @ 133 200 / 200 .333 mls/hr IV Q1H [facility] Rx#: [id number] cefEPime HCl/D5W 2 gm In 50 ml 50 / 50 50 / 50 @ 100 mls/hr IV Q8H [facility] Rx#: [id number] vancomycin HCL 1,000 mg 535 / 535 vancomycin HCL 750 mg In 0.9 % Sodium Chloride 500 ml @ 267.5 mls/hr IV ONCE ONE Rx#: [id number] Lactated Ringers 1,000 ml @ 100 1000 / 1000 mls/hr IVCONT .Q10H [facility] Rx#: [id number] Norepinephrine Bitartrate/D5W 8 0.51 / 0.51 mg In 250 ml @ Per Protocol IVCONT .Q0M [facility] Rx#:[id number] Output: Output, Urine Amount 1200 / 1200 Output, Urine Amount (Catheter) 155 / 155 2-way Urethral 155 / 155 Other: Last Bowel Movement 07/01/25 Weight 65.317 kg Weight 65.317 kg - Constitutional Present: moderate distress - Routine HEENT Exam Head: Present: normal inspection, normocephalic ENT: Present: mucous membranes moist - Routine Neck Exam Present: supple - Routine Respiratory Exam Present: CTAB - Routine Cardiovascular Exam Cardiovascular: Present: S1, S2 - Routine Abdominal Exam Present: soft, nontender - Routine Extremities Exam Present: nontender - Routine Skin Exam Present: intact, normal turgor Hem/Onc Consult Result - Labs CBC & Chem 7: 07/02/25 00:13 07/02/25 00:13 Labs: Short CBC 07/02/25 Range/Units 00:13 WBC 9.9 (4.8-10.8) X10*3/uL Hgb 9.9 L (14.0-18.0) g/dl Hct 31.3 L (42.0-52.0) % Plt Count 129 L (160-400) X10*3/uL BMP 07/02/25 00:13 Sodium 140 Potassium 4.3 Chloride 103 Carbon Dioxide 21 L BUN 17 H Creatinine 1.05 Calcium 8.4 Cardiac Enzymes 07/02/25 Range/Units 00:13 Total Creatine Kinase 252 H (38-174) U/L Liver Function 07/02/25 Range/Units 00:13 Total Bilirubin 0.6 (0.0-1.0) mg/dL AST 142 H (5-37) U/L ALT 36 (0-40) U/L Alkaline Phosphatase 129 H (39-117) U/L Albumin 3.4 L (3.5-5.0) g/dL Urine 07/02/25 Range/Units 05:23 Urine Color Yellow Urine Appearance Clear Urine pH 5.5 (5.0-9.0) Ur Specific [place] 1.025 (1.005-1.025) Urine Protein Trace (Neg-Trace) mg/dL Urine Glucose (UA) Negative (Negative) mg/dL Assessment and Plan Patient Active problem list reviewed?: Yes (1) Malignant neoplasm of prostate metastatic to bone Status: Acute Assessment and plan: This is a pleasant 85 year-old gentleman with a diagnosis of metastatic prostate carcinoma with extensive bone metastases. He was been seen by Urology. He was started on Casodex. PSA has actually declined from 105 to 23.7. He received Lupron and Denosumab at Dr. Mi's office, on 09/07/23. Abiraterone and prednisone were ordered. He started these end of August. I proceeded with a CT scan for further evaluation. CT scan of the abdomen pelvis from 09/09/23: In continuity with enlarged heterogeneous prostate and in intimate association with the anterior and lateral rectal mckinnon, hyperenhancing abnormal lobulated soft tissue density is demonstrated. It is unclear if this originates within the prostate with perirectal extension versus primary rectal pathology. Likely related bilateral pelvic sidewall lymph nodes with similar hyper attenuating appearance. Colonoscopy may be indicated. Renal ultrasound on 09/21 which revealed: Normal size kidneys with increased cortical echogenicity. Bilateral subcentimeter simple cysts which correspond to the findings seen on CT scan. No imaging follow-up is recommended He was under observation for awhile. However his PSA kept climbing. From 09/22: it was 61. The discussion with him and his daughter, we decided to start him on cabazitaxel. He has tolerated the first three cycles well. PSA came down to 54.5. However, on 12/03, he presented with chest pain after mowing the lawn. He was taken to [facility] where he had a couple of stents placed. PSA: On 12/01: 70. On 12/14: 51. On 02/23: 92. On 04/02: 114. He received cycle 20 of the denosumab on 03/16. He had cycle 9 of cabazitaxel on 03/16. CYCLE 10. was on 04/06. In view of the rising PSA, further treatment was offered. This entails a nuclear medicine radio isotope: [place] 223. Kwameuvicto. He received the 1st dose at [facility] on 05/30. His next dose is due on 07/12. He was in-house between 06/08 and 06/10. Summary: 85 y/o M with a PMH significant for?metastatic prostate cancer with extensive bone metastasis currently on denosumab, NSVT, orthostatic syncope, HTN, and coronary artery disease status post stents,discharged on 06/06 for multifocal pneumonia and generalized weakness, who presented to the ED last night due to hypoxia at home with increased weakness and not improving with oral antibiotics. Acute hypoxic respiratory failure and sepsis secondary to multifocal pneumonia: Chest imaging shows pneumonitis, Patient was started on IV antibiotics, respiratory viral panel, blood cultures sent. Respiratory viral panel: Positive for influenza A . Nasal MRSA screen negative, strep and Legionella antigen. Since patient is seems to be improved significantly with the above management, blood culture negative, patient is afebrile, hypoxia resolved. Above was discussed with the Pulmonary: Patient will go home with p.o. Levaquin. Also complete Tamiflu. Prednisone taper-once completed he can go back to home dose of prednisone. He presented to Oncology on Friday 06/29. He actually felt well. He was given IV hydration. Unfortunately he is now admitted s/p unwitnessed fall. He was on the ground for 2-3 hours and denies any hit to the head or LOC. He has been admitted for sepsis with additional complications. Mild rhabdomyolysis. PLAN: To continue IV fluids. Patient is on Cefepime 2 g q.8 hours, Vancomycin. Recent C diff, currently no diarrhea Blood cultures pending. Telemetry, continuous pulse ox: No current issues with hypoxia Trend lactic acid: 5.0 to 2.9 UA negative for UTI. Viral studies negative. Meanwhile, he will continue Denosumab. He had a dose on 06/15. His next dose will be on 07/12. He will continue on the Lupron, his 1st dose was given on 09/[address] Mi's office. Next dose was given in February. Next dose will be due in August. All his and his daughter's questions were answered to their satisfaction. Thank you, CC: Dr. Mi. Dr. Ly. - Time Spent With Patient Time Spent with Patient (in minutes): 30
--- NOTE | 2025-07-02 19:12 | PC.NURSE ---
Pt. arrived to ICU from ED at approx 1245. levophed gtt running per SEP. Pt. A&Ox4, drowsy, slept in naps. ST on tele, HR 100s-110s. pt. c/o constipation, PRN colace given per SEP. Bhandari in place with marginal urine output, 5-30 cc/hr- MD aware. Tmax 100.8, PRN tylenol given with good effect. Q2 repositoining performed. Plan of care ongoing.
--- NOTE | 2025-07-02 23:25 | CONS_ITS ---
DATE OF SERVICE: 07/02/2025 REFERRING PHYSICIAN: Nunu Stevenson NP REASON FOR CONSULTATION: Abnormal CT of the colon and liver. HISTORY OF PRESENT ILLNESS: Mr. Salguero is a pleasant 85-year-old man with a history of metastatic prostate cancer, who was admitted to the hospital after presenting to the emergency room with complaint of a fall. As part of his evaluation, he underwent CT scanning of the abdomen and pelvis, which is reviewed. This is interpreted as showing mild concentric wall thickening of the ascending colon that could not exclude a lesion. There were multiple hypodense lesions scattered throughout the liver parenchyma with imaging features consistent with metastatic disease not seen on the most recent comparison exam. As noted, he does have a history of prostate cancer, which is known to be metastatic. PAST MEDICAL HISTORY: 1. Prostate cancer. 2. Gastroesophageal reflux disease. 3. Hearing loss. 4. Constipation. 5. Hemorrhoids. CURRENT MEDICATIONS: His current medication list is reviewed in the chart. ALLERGIES: AUGMENTIN. FAMILY HISTORY: This is reviewed with the patient and is noncontributory. SOCIAL HISTORY: There is no current tobacco, alcohol, or substance abuse. REVIEW OF SYSTEMS: SKIN: No pruritus. HEENT: Negative. CARDIOPULMONARY: No shortness of breath or chest pain. GASTROINTESTINAL: As above. GENITOURINARY: Negative. NEUROPSYCHIATRIC: Negative. PHYSICAL EXAMINATION: GENERAL: Shows a pleasant male, lying comfortably in bed. VITAL SIGNS: Reviewed in the electronic medical record and are stable. SKIN: Anicteric. HEENT: Shows no scleral icterus. NECK: Without lymphadenopathy or thyromegaly. LUNGS: Clear. HEART: Shows a regular rate and rhythm. S1, S2. No murmur. ABDOMEN: Soft without focal masses or tenderness. Bowel sounds are present. No organomegaly is noted. EXTREMITIES: Without edema. LABORATORY DATA: Reviewed including imaging studies. IMPRESSION: 1. Abnormal CT scan of the colon. 2. Metastatic prostate cancer. 3. Question of liver metastases, source not clear. I would recommend further evaluation with oncology consultation. I discussed colonoscopy with him, which he has never had and does not wish to pursue at this time. Thanks for asking me to see him. I will follow him in the hospital as needed. MD SAUD Bah/KIRILL / [phone]
[2025-07-03] VITALS (27 sets, daily range): BP systolic 93–121; BP diastolic 54–71; PULSE 20–118; RESP 13–26; TEMP 37.1–38.7; O2SAT 92–98; BMI 23.9
[2025-07-03] MEDS: cefEPime HCl/D5W 2 GM/50 ML PIGGYBACK IV ×2 (01:16→09:20)
--- NOTE | 2025-07-03 03:38 | PC.NURSE ---
Pt remains in ICU for close monitoring. ST 100s on tele. AOX4, TAZLINA. PEERL. Remains on 2LNC. Bps being monitored closely, remains on LEVO throughout shift, see MAR for titration. Bhandari remains in place, small amounts of concentrated urine. Pt was incont. of stool smear on shift. C/o heartburn at start of shift, relieved w/ calcium carbonate. Tolerating PO meds and water. Buttock is red, but intact. Foam in place. Scattered bruising throughout upper extremeties as well as skin tear to R AC and L elbow. Pt denies pain.
[2025-07-03] MEDS: Albumin Human 25 % 50 ML 100 ML IV ×5 (04:13→09:28)
[2025-07-03 05:30] LABS: MANUAL DIFF FLAG NO
[2025-07-03 05:32] LABS: Hematocrit 25.4 % (42.0-52.0); Hemoglobin 8.1 g/dl (14.0-18.0); Imm Gran Abs Auto 0.25 X10*3/uL (0.00-0.03); Imm Gran Pct Auto 2.9 % (0.0-0.4); Lymphocytes Absolute Auto 0.5 X10*3/uL (1.2-4.9); Mean Corpuscular HGB Conc 31.9 g/dl (31.0-36.0); Mean Corpuscular Hemoglobin 29.3 pg (27.0-33.0); Mean Corpuscular Volume 92.0 fL (80.0-98.0); NRBC Abs Auto 0.060 X10*3/uL (0.0-0.012); NRBC Pct Auto 0.7 /100WBC (0.0-0.2); Red Blood Count 2.76 X10*6/uL (4.60-5.80); White Blood Count 8.5 X10*3/uL (4.8-10.8)
[2025-07-03 05:37] LABS: INTERNATIONAL NORM RATIO 1.9 (0.9-1.1); Prothrombin Time 22.5 SEC (11.2-13.5)
[2025-07-03 05:38] LABS: Platelet Count 97 X10*3/uL (160-400)
[2025-07-03 05:49] LABS: Alanine Aminotransferase 30 U/L (0-40); Albumin Level 3.4 g/dL (3.5-5.0); Alkaline Phosphatase 103 U/L (39-117); Anion Gap 18 (12-20); Aspartate Amino Transferase 100 U/L (5-37); Blood Urea Nitrogen 26 mg/dL (9-16); Calcium 7.4 mg/dL (8.4-10.2); Carbon Dioxide 16 mmol/L (22-29); Chloride 106 mmol/L (96-108); Creatinine Clr Calc Pharmacy 25.6; Estimated Glomerular Filt Rate 34; Magnesium 1.6 mg/dL (1.6-2.6); Potassium 4.2 mmol/L (3.3-5.1); Sodium 136 mmol/L (135-145); Total Protein 5.2 g/dL (6.5-8.0)
[2025-07-03] MEDS: 0.9 % Sodium Chloride Flush 3 ML SYRINGE IVFLUSH ×2 (07:46→16:54)
--- NOTE | 2025-07-03 08:35 | PM.CCPN ---
Subjective Subjective Date of Service: 07/03/25 Interval History: no significant overnight events; persistent vasopressor use Critical Care Time (minutes): 60 Physical Exam Vital Signs: Vital Signs: Last Vital Signs Temp 99.9 F 07/03/25 08:00 Pulse 111 H 07/03/25 08:00 Resp 25 H 07/03/25 08:00 BP 93/71 07/03/25 08:00 Pulse Ox 95 07/03/25 08:00 O2 Del Method Nasal Cannula 07/03/25 08:00 O2 Flow Rate 2.0 07/03/25 08:00 BMI result Body Mass Index 23.9 Const: General: cooperative, healthy appearing, comfortable, no acute distress, well developed, alert and awake Orientation/consciousness: patient oriented x3 HEENT: Head: Yes normal to inspection, Yes normocephalic and Yes atraumatic Eyes: General: appearance normal, both eyes and all related structures Neck: Neck: Yes normal visual inspection, Yes full ROM, Yes no meningeal signs, Yes trachea midline and Yes supple Chest: Chest palpation & inspection: normal inspection of the chest Resp: Other: no appreciable overt rales, rhonchi, wheezing Effort & Inspection: normal respiratory effort Cardio: Rate: regular rate Rhythm: regular rhythm GI: Inspection: Yes normal to inspection, No Abdominal wall edema and No distended Palpation (GI): Soft to palpation, not firm, nontender, no guarding and not rigid Skin: General skin exam: no rashes or lesions noted Neuro: General: patient oriented x3, tone normal, moves all extremities, no meningeal signs and no focal motor deficits Extrem: Other: appreciable 1+ pitting edema to bilateral shins General: Yes normal to inspection, Yes full ROM and Yes capillary refill normal Psych: Appearance: grossly normal Objective Data Labs 07/03/25 05:10 07/03/25 05:10 Labs: Laboratory Results - last 24 hr 07/02/25 07/02/25 07/03/25 12:07 14:28 05:10 WBC 8.5 RBC 2.76 L Hgb 8.1 L Hct 25.4 L MCV 92.0 MCH 29.3 MCHC 31.9 RDW 18.4 H Plt Count 97 L MPV 9.1 L Immature Gran % (Auto) 2.9 H Neut % (Auto) 84.9 H Lymph % (Auto) 6.1 L [place] % (Auto) 3.3 Eos % (Auto) 2.6 Baso % (Auto) 0.2 Lymph # (Auto) 0.5 L [place] # (Auto) 0.3 Eos # (Auto) 0.2 Baso # (Auto) 0.0 Abs Immat Gran (auto) 0.25 H Absolute Neuts (auto) 7.2 Absolute Nucleated RBC 0.060 H Nucleated RBC % (auto) 0.7 H PT 22.5 H INR 1.9 H Sodium 136 Potassium 4.2 Chloride 106 Carbon Dioxide 16 L Anion Gap 18 BUN 26 H Creatinine 1.90 H Estim Creat Clear Calc 25.6 Estimated GFR 34 Random Glucose 80 Lactic Acid 4.9 H* Lactic Acid F/U @ 2Hr 5.5 H* Calcium 7.4 L D Phosphorus 3.6 Magnesium 1.6 Total Bilirubin 0.8 AST 100 H ALT 30 Alkaline Phosphatase 103 Total Protein 5.2 L Albumin 3.4 L Microbiology Microbiology Results: Microbiology 07/02/25 00:17 Blood - Venous Blood Culture - Preliminary No growth after 24 hours. 07/02/25 00:13 Blood - Venous Blood Culture - Preliminary No growth after 24 hours. Progress Note: A&P Assessment and plan (1) Sepsis: Status: Acute Plan Patient is a 85 Y M w/ hypertension c/b coronary artery disease c/b myocardial infarction s/p stent, recent admission for pneumonia d/t influenza, and metastatic prostate cancer to bone on chemotherapy and followed?by [facility], presenting to ED on 07/02 after found down; ED trauma work-up grossly unremarkable, however found to have fever, initially admitted medicine, though developed?hypotension necessitating vasopressors N: no acute issues CV: hypotension, c/f septic shock, norepinephrine gtt as needed R: no acute issues; to closely monitor GI: no acute issues; of note, CT A/P c/f new metastasis to liver : metastatic prostate cancer H: no acute issues; chemical DVT prophylaxis ID: c/f septic shock, unclear source, to follow-up BCx 07/02 E: no acute issues; to monitor hypo-/hyper-glycemia P: no acute issues S: DNR/DNI, daily updates given to daughter/HCP Quality Stroke Does the patient have a stroke diagnosis?: No Reason for No Anti-thrombotic by Day Two: N/A - Med Ordered VTE Prior VTE?: No VTE Risk Level:: Medical - moderate - high VTE Device Contraindication: N/A - Device Ordered VTE Drug Contraindication: N/A - Med Ordered
[2025-07-03] MEDS: Calcium Gluconate/NaCl,Iso-Osm 1 GM/50 ML PLAST..BAG IV (09:59)
[2025-07-03] MEDS: Lactated Ringers 500 ML IVCONT (10:33)
--- NOTE | 2025-07-03 11:02 | MHC.CM.PN ---
Pt continues care in ICU: will receive Albumin and LR today: BP will be closely monitored. Pt from home with family support: new referral to [facility]. Son or dtr to transport pt to home. CM will follow
[2025-07-03 11:43] LABS: Glucose, Whole Blood 93 mg/dL (60-115)
--- NOTE | 2025-07-03 18:00 | PC.NURSE ---
Assumed care at 0700. Upon initial assessment, pt A&O x4 with levophed drip running. Pt had several small bowel movements throughout the shift. Pt complained of itchiness, a diffuse rash was noted on pt?s back. MD made aware. Lotion was applied and itchiness resolved. Pt complained of feeling unwell at 1115. Pt made statements of ?feeling weird,? and that he was on ?his last breath.? MD made aware. Pt complained of nausea and was medicated appropriately. Levophed drip paused at approx 1200. At 1645, pt complained of further itchyness. Application of lotion ineffective. MD made aware. Fall & safety precautions in place. Pt repositioned q2hr as tolerated. See MAR and assessments for further details.
[2025-07-04] VITALS (13 sets, daily range): BP systolic 102–142; BP diastolic 57–87; PULSE 114–121; RESP 16–23; TEMP 36.3–38; O2SAT 88–97; BMI 23.8
--- NOTE | 2025-07-04 03:53 | PC.NURSE ---
Pt remains in ICU for close monitoring. ST 100s on tele. AOX4, CABAZON. PEERL. Remains on 2LNC. . Bhandari remains in place, small amounts of concentrated urine. Pt was incont. of stool smear on shift. C/o heartburn at start of shift, relieved w/ calcium carbonate. Tolerating PO meds and water. Buttock is red, but intact. Foam in place. Scattered bruising throughout upper extremeties as well as skin tear to R AC and L elbow. Pt denies pain. Of note at approx 0300, pt did get confused overnight alert to self only, but was redirectable, neuros assessed and remained intact. Pt did receive melatonin this evening which per pt he does not typically take. VSS remains WNL. Safety needs being met at this time. Care ongoing.
[2025-07-04 04:33] LABS: MANUAL DIFF FLAG NO
[2025-07-04 04:34] LABS: Hematocrit 25.8 % (42.0-52.0); Hemoglobin 8.4 g/dl (14.0-18.0); Imm Gran Abs Auto 0.20 X10*3/uL (0.00-0.03); Imm Gran Pct Auto 2.5 % (0.0-0.4); Lymphocytes Absolute Auto 0.7 X10*3/uL (1.2-4.9); Mean Corpuscular HGB Conc 32.6 g/dl (31.0-36.0); Mean Corpuscular Hemoglobin 30.0 pg (27.0-33.0); Mean Corpuscular Volume 92.1 fL (80.0-98.0); NRBC Abs Auto 0.050 X10*3/uL (0.0-0.012); NRBC Pct Auto 0.6 /100WBC (0.0-0.2); Platelet Count 97 X10*3/uL (160-400); Red Blood Count 2.80 X10*6/uL (4.60-5.80); White Blood Count 8.1 X10*3/uL (4.8-10.8)
[2025-07-04 04:53] LABS: INTERNATIONAL NORM RATIO 1.6 (0.9-1.1); Prothrombin Time 19.6 SEC (11.2-13.5)
[2025-07-04 04:56] LABS: Alanine Aminotransferase 31 U/L (0-40); Albumin Level 3.4 g/dL (3.5-5.0); Alkaline Phosphatase 133 U/L (39-117); Anion Gap 18 (12-20); Aspartate Amino Transferase 78 U/L (5-37); Blood Urea Nitrogen 34 mg/dL (9-16); Calcium 7.7 mg/dL (8.4-10.2); Carbon Dioxide 15 mmol/L (22-29); Chloride 107 mmol/L (96-108); Creatinine Clr Calc Pharmacy 19.4; Estimated Glomerular Filt Rate 25; Magnesium 1.8 mg/dL (1.6-2.6); Potassium 3.9 mmol/L (3.3-5.1); Sodium 136 mmol/L (135-145); Total Protein 5.3 g/dL (6.5-8.0)
[2025-07-04] MEDS: 0.9 % Sodium Chloride Flush 3 ML SYRINGE IVFLUSH (08:06)
--- NOTE | 2025-07-04 08:55 | PM.CCPN ---
Subjective Subjective Date of Service: 07/04/25 Interval History: no significant overnight events; off vasopressors since 07/03 afternoon Critical Care Time (minutes): 0 Physical Exam Vital Signs: Vital Signs: Last Vital Signs Temp 100.0 F 07/04/25 08:00 Pulse 121 H 07/04/25 08:00 Resp 22 H 07/04/25 08:00 BP 121/71 07/04/25 08:00 Pulse Ox 92 07/04/25 08:00 O2 Del Method Nasal Cannula 07/04/25 08:00 O2 Flow Rate 2 07/04/25 08:00 BMI result Body Mass Index 23.8 Const: General: cooperative, healthy appearing, comfortable, no acute distress, well developed, alert, awake and Physically active Orientation/consciousness: patient oriented x3 HEENT: Head: Yes normal to inspection, Yes normocephalic and Yes atraumatic Eyes: General: appearance normal, both eyes and all related structures Neck: Neck: Yes normal visual inspection, Yes full ROM, Yes no meningeal signs, Yes trachea midline and Yes supple Chest: Chest palpation & inspection: normal inspection of the chest Resp: Other: no appreciable overt rales, rhonchi, wheezing Effort & Inspection: normal respiratory effort Cardio: Rate: tachycardic Rhythm: regular rhythm GI: Inspection: Yes normal to inspection, No Abdominal wall edema and No distended Palpation (GI): Soft to palpation, not firm, nontender, no guarding and not rigid Skin: Other: appreciable erythema, xerosis throughout abdomen Neuro: General: patient oriented x3, tone normal, moves all extremities, no meningeal signs and no focal motor deficits Extrem: Other: appreciable trace pitting edema to bilateral shins General: Yes normal to inspection, Yes full ROM and Yes capillary refill normal Psych: Appearance: grossly normal Objective Data Labs 07/04/25 04:25 07/04/25 04:26 Labs: Laboratory Results - last 24 hr 07/03/25 07/04/25 07/04/25 11:40 04:25 04:26 WBC 8.1 RBC 2.80 L Hgb 8.4 L Hct 25.8 L MCV 92.1 MCH 30.0 MCHC 32.6 RDW 18.5 H Plt Count 97 L MPV 9.1 L Immature Gran % (Auto) 2.5 H Neut % (Auto) 80.2 H Lymph % (Auto) 8.0 L [place] % (Auto) 4.5 Eos % (Auto) 4.6 H Baso % (Auto) 0.2 Lymph # (Auto) 0.7 L [place] # (Auto) 0.4 Eos # (Auto) 0.4 Baso # (Auto) 0.0 Abs Immat Gran (auto) 0.20 H Absolute Neuts (auto) 6.5 Absolute Nucleated RBC 0.050 H Nucleated RBC % (auto) 0.6 H PT 19.6 H INR 1.6 H Sodium 136 Potassium 3.9 Chloride 107 Carbon Dioxide 15 L Anion Gap 18 BUN 34 H Creatinine 2.50 H Estim Creat Clear Calc 19.4 Estimated GFR 25 POC Glucose 93 Random Glucose 77 Calcium 7.7 L Phosphorus 3.5 Magnesium 1.8 Total Bilirubin 0.8 AST 78 H ALT 31 Alkaline Phosphatase 133 H Total Protein 5.3 L Albumin 3.4 L Random Vancomycin 07/04/25 05:55 WBC RBC Hgb Hct MCV MCH MCHC RDW Plt Count MPV Immature Gran % (Auto) Neut % (Auto) Lymph % (Auto) [place] % (Auto) Eos % (Auto) Baso % (Auto) Lymph # (Auto) [place] # (Auto) Eos # (Auto) Baso # (Auto) Abs Immat Gran (auto) Absolute Neuts (auto) Absolute Nucleated RBC Nucleated RBC % (auto) PT INR Sodium Potassium Chloride Carbon Dioxide Anion Gap BUN Creatinine Estim Creat Clear Calc Estimated GFR POC Glucose Random Glucose Calcium Phosphorus Magnesium Total Bilirubin AST ALT Alkaline Phosphatase Total Protein Albumin Random Vancomycin 21.8 H Microbiology Microbiology Results: Microbiology 07/02/25 00:17 Blood - Venous Blood Culture - Preliminary No growth after 48 hours. 07/02/25 00:13 Blood - Venous Blood Culture - Preliminary No growth after 48 hours. 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 and followed?by [facility] oncology, presenting to ED on 07/02 after found down; ED trauma work-up grossly unremarkable, however found to have fever, initially admitted medicine, though developed?hypotension necessitating vasopressors N: intermittent delirium, non-pharmacological modalities CV: hypotension, c/f septic shock, s/p norepinephrine gtt R: no acute issues; to closely monitor GI: no acute issues; of note, CT A/P c/f new metastasis to liver : metastatic prostate cancer; acute renal insufficiency, likely pre-renal, judicious use of IVF, to closely monitor renal indices/electrolytes H: no acute issues; chemical DVT prophylaxis ID: c/f septic shock, unclear source, to follow-up BCx 07/02 E: no acute issues; to monitor hypo-/hyper-glycemia P: no acute issues S: DNR/DNI, daily updates given to daughter/HCP Quality Stroke Does the patient have a stroke diagnosis?: No Reason for No Anti-thrombotic by Day Two: N/A - Med Ordered VTE Prior VTE?: No VTE Risk Level:: Medical - moderate - high VTE Device Contraindication: N/A - Device Ordered VTE Drug Contraindication: N/A - Med Ordered
--- NOTE | 2025-07-04 09:37 | P.EN_ITS ---
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 Likely in the setting of severe inflammatory reaction to the chemotherapy, no source identified Patient is off pressors for medical floors. Time Spent With Patient Time: Total time managing care of this patient today ____ minutes.
[2025-07-04] MEDS: Albumin Human 25 % 50 ML 100 ML IV (10:17)
[2025-07-04] MEDS: Calcium Gluconate/NaCl,Iso-Osm 1 GM/50 ML PLAST..BAG IV (10:17)
[2025-07-04] MEDS: Lactated Ringers 500 ML IVCONT (10:17)
--- NOTE | 2025-07-04 11:32 | HE.PHANOTE ---
JAZLYN Holding vanco until tomorrow 07/05 trough at 0600. Pt level over 20 and SCr has significant jump since start of vanco. Pt most likely clearly very slowing so skipping dose today.
--- NOTE | 2025-07-04 13:21 | ECG_ITS ---
Test Reason : cp Blood Pressure : */* mmHG Vent. Rate : 118 BPM Atrial Rate : 118 BPM P-R Int : 128 ms QRS Dur : 84 ms QT Int : 286 ms P-R-T Axes : 8 -2 87 degrees QTcB Int : 400 ms Sinus tachycardia Low voltage QRS Cannot rule out Anterior infarct (cited on or before 02-Jul-2025) Abnormal ECG When compared with ECG of 02-Jul-2025 12:07, Nonspecific T wave abnormality has replaced inverted T waves in Anterior leads Referred By: Anabell Agustin Electronically Signed By: TOMMY BABCOCK MD
--- NOTE | 2025-07-04 14:15 | MHC.SLORD ---
Speech Language Pathology Order Status: Pt too somnolent for clinical bedside swallow evaluation, family at bedside, verbalized understanding and agreed with plan for swallow assessment when pt more alert.
--- NOTE | 2025-07-04 14:29 | P.CONGS_ITS ---
History of Present Illness Consult details Consult date: 07/04/25 <Nancy Foy PA-C - Last Filed: 07/04/25 14:47> Reason for consult: other (abdominal distention) <DANK Murillo Last Filed: 07/04/25 14:47> Requesting physician: Anabell Agustin <Nancy Foy PA-C - Last Filed: 07/04/25 14:47> Narrative: 85 year old male with extensive PMH including hypertension, CAD, hx of [place] s/p stent, recent admission for pneumonia secondary to influenza, and metastatic prostate cancer on chemotherapy followed by [facility] oncology who initially presented to ED on 07/02 after he was found down. His ED trauma work-up was grossly unremarkable, however he was found to have fever and initially admitted medicine for sepsis with unknown source but developed hypotension necessitating vasopressors and was transferred to ICU. He was started on IV vanco and cefepime. Vasopressors were discontinued since 07/03 afternoon and he was transferred to med/tele today. Reportedly soon after this he vomited and was found to be increasingly distended. KUB was performed which showed no free air, nondistended stomach or dilated bowel loops. Lactic acid 2.9. General surgery was therefore consulted. Admission CT scan abd pelvis was reviewed which showed new multiple hypodense lesions scattered in the liver parenchyma and mild concentric thickening of the wall of the ascending colon, question of colonic lesion/neoplasm. Family is at bedside and reports he is increasingly uncomfortable and grunting and which is new. He reportedly spit up a small amount of dark fluid today. He has been having soft, small BMs and last one was yesterday, no reports of blood. < Nancy Foy PA-C - Last Filed: 07/04/25 14:47> Review of Systems 2 Review of Systems: Yes Unobtainable due to mental status <DANK Murillo Last Filed: 07/04/25 14:47> [facility] Past Medical History Medical History: Medical History (Updated 07/04/25 @ 14:44 by Kashif Torrez MD) Vomiting Advance care planning Debility Hearing loss GERD without esophagitis Constipation Prostate cancer Prostate cancer metastatic to bone Hemorrhoids Elevated PSA <DANK Murillo Last Filed: 12/10/25 14:47> Family History Family History: Family History Mother No problems noted. Father No problems noted. 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 Cognitive needs: No Hearing needs: No (pt throw them away, he's not using them ) Vision needs: Yes (rx ) <Nancy Foy PA-C - Last Filed: 07/04/25 14:47> Travel History Ebola Risk: Travel/Contact With Anyone From Affected Area/s: No <Nancy Foy PA-C - Last Filed: 07/04/25 14:47> Has Patient Experienced Ebola Symptoms: No <Nancy Foy PA-C - Last Filed: 07/04/25 14:47> Meds Allergies/Adverse reactions: Allergies Allergy/AdvReac Type Severity Reaction Status Date / Time amoxicillin (From Augmentin) Allergy Severe tongue/facial Verified 07/01/25 23:52 swelling clavulanic acid (From Allergy Severe tongue/facial Verified 07/01/25 23:52 Augmentin) swelling <Nancy Foy PA-C - Last Filed: 07/04/25 14:47> Active Medications: Current Medications Albuterol/Ipratropium (Albuterol/Iprat 2.5/0.5mg 3 Ml Ampul.Neb) 3 ml INHALE Q4H PRN PRN Reason: Shortness of Breath/Wheezing Calcium Carbonate (Calcium Carbonate 750 Mg Tab.Chew) 750 mg PO Q4H PRN PRN Reason: Heartburn Last Admin: 07/03/25 20:11 Dose: 750 mg Docusate Sodium (Docusate Sodium 100 Mg Capsule) 100 mg PO BID PRN PRN Reason: Constipation Last Admin: 07/02/25 16:05 Dose: 100 mg Acetaminophen (Ofirmev) 1,000 mg in 100 mls @ 400 mls/hr IV Q6H PRN PRN Reason: Fever Last Infusion: 07/03/25 05:07 Dose: Infused Cefepime HCl 1 gm/ Sodium (Chloride) 50 mls @ 100 mls/hr IV Q12H [facility] Last Infusion: 07/04/25 10:51 Dose: Infused Vancomycin HCl 500 mg/ Sodium (Chloride) 110 mls @ 110 mls/hr IV Q24H [facility] Melatonin (Melatonin 3 Mg Tablet) 6 mg PO BEDTIME PRN PRN Reason: Insomnia Last Admin: 07/03/25 20:11 Dose: 6 mg Ondansetron HCl (Ondansetron Hcl 4 Mg/2 Ml Vial) 4 mg IVPUSH Q4H PRN PRN Reason: Nausea and Vomiting Last Admin: 07/04/25 12:29 Dose: 4 mg Pantoprazole Sodium (Pantoprazole Sodium 40 Mg/10 Ml Vial) 40 mg IVPUSH BID@0630,1630 [facility] Last Admin: 07/04/25 13:34 Dose: 40 mg Pharmacy Consult (Consult Rx Vancomycin Dosing) 1 each MISCELLANE DAILY PRN PRN Reason: Consult order Prednisone (Prednisone 1 Mg Tablet) 4 mg PO DAILY [facility] Last Admin: 07/04/25 08:04 Dose: 4 mg Sodium Chloride (0.9 % Sodium Chloride Flush 3 Ml Syringe) 3 ml IVFLUSH QSHIFT [facility] Last Admin: 07/04/25 08:06 Dose: 3 ml <Nancy Foy PA-C - Last Filed: 07/04/25 14:47> Home medications: Home Medications ?Medication ?Instructions ?Recorded ?Confirmed ?Last Taken ?Type aspirin 81 mg chewable tablet 1 tab PO DAILY 06/04/25 07/02/25 07/01/25 History ondansetron 8 mg disintegrating 8 mg PO Q8H PRN nausea /vomiting 06/04/25 07/02/25 Unknown History tablet multivitamin 1 tab PO DAILY 06/29/25 12/0 03/1907/01/25 History calcium carbonate (Tums) 300 mg PO BID PRN Stomach Up set 07/02/25 07/02/25 Unknown History ibuprofen 200 mg tablet (Advil) 200 - 400 mg PO Q6H MD N Pain 07/02/25 07/02/25 Unknown History <DANK Murillo Last Filed: 07/04/25 14:47> Physical Exam 2 Vital Signs: Vital Signs: Last Vital Signs Temp 97.3 F 07/04/25 13:39 Pulse 121 H 07/04/25 13:39 Resp 21 H 07/04/25 13:39 BP 118/66 07/04/25 13:39 Pulse Ox 88 L 07/04/25 13:39 O2 Del Method Room Air 07/04/25 13:39 O2 Flow Rate 2 07/04/25 08:00 BMI result Body Mass Index 23.8 <DANK Murillo Last Filed: 07/04/25 14:47> Const: Other: uncomfortable appearing <DANK Murillo Last Filed: 07/04/25 14:47> General: alert <DANK Murillo Last Filed: 07/04/25 14:47> Resp: Other: increased work of breathing <DANK Murillo Last Filed: 07/04/25 14:47> Effort & Inspection: tachypneic <DANK Murillo Last Filed: 07/04/25 14:47> GI: Other: distended and tympanitic but soft unable to discern if he has tenderness <DANK Murillo Last Filed: 07/04/25 14:47> Palpation (GI): not rigid <DANK Murillo Last Filed: 07/04/25 14:47> Skin: Other: warm and dry <DANK Murillo Last Filed: 07/04/25 14:47> Results Labs Result diagrams: 07/04/25 04:25 12/10/25 04:26 <Nancy Foy PA-C - Last Filed: 07/04/25 14:47> Labs: Abnormal lab results 07/04/25 07/04/25 07/04/25 Range/Units 04:25 04:26 05:55 RBC 2.80 L (4.60-5.80) X10*6/uL Hgb 8.4 L (14.0-18.0) g/dl Hct 25.8 L (42.0-52.0) % RDW 18.5 H (11.0-16.0) % Plt Count 97 L (160-400) X10*3/uL MPV 9.1 L (9.4-12.4) fL Immature Gran % (Auto) 2.5 H (0.0-0.4) % Neut % (Auto) 80.2 H (45-73) % Lymph % (Auto) 8.0 L (20-40) % Eos % (Auto) 4.6 H (0-4) % Lymph # (Auto) 0.7 L (1.2-4.9) X10*3/uL Abs Immat Gran (auto) 0.20 H (0.00-0.03) X10*3/uL Absolute Nucleated RBC 0.050 H (0.0-0.012) X10*3/uL Nucleated RBC % (auto) 0.6 H (0.0-0.2) /100WBC PT 19.6 H (11.2-13.5) SEC INR 1.6 H (0.9-1.1) Carbon Dioxide 15 L (22-29) mmol/L BUN 34 H (9-16) mg/dL Creatinine 2.50 H (0.5-1.4) mg/dL Lactic Acid (0.5-2.0) mmol/L Calcium 7.7 L (8.4-10.2) mg/dL AST 78 H (5-37) U/L Alkaline Phosphatase 133 H (39-117) U/L Total Protein 5.3 L (6.5-8.0) g/dL Albumin 3.4 L (3.5-5.0) g/dL Random Vancomycin 21.8 H (15-20) mcg/mL 07/04/25 Range/Units 13:09 RBC (4.60-5.80) X10*6/uL Hgb (14.0-18.0) g/dl Hct (42.0-52.0) % RDW (11.0-16.0) % Plt Count (160-400) X10*3/uL MPV (9.4-12.4) fL Immature Gran % (Auto) (0.0-0.4) % Neut % (Auto) (45-73) % Lymph % (Auto) (20-40) % Eos % (Auto) (0-4) % Lymph # (Auto) (1.2-4.9) X10*3/uL Abs Immat Gran (auto) (0.00-0.03) X10*3/uL Absolute Nucleated RBC (0.0-0.012) X10*3/uL Nucleated RBC % (auto) (0.0-0.2) /100WBC PT (11.2-13.5) SEC INR (0.9-1.1) Carbon Dioxide (22-29) mmol/L BUN (9-16) mg/dL Creatinine (0.5-1.4) mg/dL Lactic Acid 2.9 H* (0.5-2.0) mmol/L Calcium (8.4-10.2) mg/dL AST (5-37) U/L Alkaline Phosphatase (39-117) U/L Total Protein (6.5-8.0) g/dL Albumin (3.5-5.0) g/dL Random Vancomycin (15-20) mcg/mL Short CBC 07/04/25 Range/Units 04:25 WBC 8.1 (4.8-10.8) X10*3/uL Hgb 8.4 L (14.0-18.0) g/dl Hct 25.8 L (42.0-52.0) % Plt Count 97 L (160-400) X10*3/uL BMP 07/04/25 04:26 Sodium 136 Potassium 3.9 Chloride 107 Carbon Dioxide 15 L BUN 34 H Creatinine 2.50 H Calcium 7.7 L Liver Function 07/04/25 Range/Units 04:26 Total Bilirubin 0.8 (0.0-1.0) mg/dL AST 78 H (5-37) U/L ALT 31 (0-40) U/L Alkaline Phosphatase 133 H (39-117) U/L Albumin 3.4 L (3.5-5.0) g/dL Urine 07/02/25 Range/Units 05:23 Urine Color Yellow Urine Appearance Clear Urine pH 5.5 (5.0-9.0) Ur Specific [place] 1.025 (1.005-1.025) Urine Protein Trace (Neg-Trace) mg/dL Urine Glucose (UA) Negative (Negative) mg/dL All other labs normal. <Nancy Foy PA-C - Last Filed: 07/04/25 14:47> Imaging Abdominal x-ray: report reviewed and image reviewed <Nancy oFy PA-C - Last Filed: 07/04/25 14:47> Abdomen CT scan report/results: report reviewed and image reviewed <Nancy Foy PA-C - Last Filed: 07/04/25 14:47> Assessment and Plan (1) Vomiting: Status: Acute <Nancy Foy PA-C - Last Filed: 07/04/25 14:47> 85-year-old male, admitted for an a witnessed fall 2 days ago Was in the ICU for sepsis Transferred to the telemetry unit today Apparently was noted to have an episode of emesis earlier The nursing staff had stated that the abdomen was distended The patient has a recent diagnosis of advanced prostate cancer with metastasis with the lungs and the liver He had a CAT scan 2 days ago showing thickening of the right colon suspicious for neoplastic process as well Abdomen is soft, benign although with some mild distention Lactate remained elevated I have recommended a follow up CAT scan for concerns about an acute intra- abdominal pathology Patient however so with known multiple medical issues Would recommend discussion about goals of care with the family Overall prognosis appears poor I have discussed the above with the hospitalist service We will follow up I have seen and examined the patient <Kashif Torrez MD - Last Filed: 07/04/25 15:58> 85 year old male with extensive PMH including hypertension, CAD, hx of [place] s/p stent, recent admission for pneumonia secondary to influenza, and metastatic prostate cancer on chemotherapy followed by [facility] oncology who presented to the ED after being found down admitted to the ICU for septic shock, now off pressors and transferred to med/tele found to be increasingly distended with one episode of emesis and lactic acidosis. Patient uncomfortable appearing with distended and tympanitic abdomen but it is soft without rigidity. Unable to discern if he has abdominal pain or tenderness. KUB unrevealing. Would recommend CT scan abd pelvis to evaluate for intraabdominal pathology. Patient seen with Dr. Torrez. This was discussed with the family who are in agreement with plan. Further plan dependent on imaging results and family discussion. <Nancy Foy PA-C - Last Filed: 07/04/25 14:47> Procedures Date of Service Date of Service: 07/04/25 <Nancy Foy PA-C - Last Filed: 07/04/25 14:47> 07/04/25 <Kashif Torrez MD - Last Filed: 07/04/25 15:58>
[2025-07-04 15:20] LABS: Troponin-I High Sensitivity 142.7 ng/L (<3.5-35.0)
[2025-07-04 15:20] LABS: Reflex Lactate? Lactic Acid Added
--- NOTE | 2025-07-04 15:31 | HO.WOUND ---
Wound Consult: Initial 85yr old male admitted to [facility] [place] on 07/02/25 - See progress notes and H&P for detailed history.? Patient seen and assessed during P&I data collection.? Attempted multiple assessments throughout the day but unable to coordinate with direct care team and patient. Photo review completed and chart review completed. ?Detailed below are made based on discussion and photo assessments and brief chart review. Per Provider notes PMH including hypertension, CAD, hx of [place] s/p stent, recent admission for pneumonia secondary to influenza, and metastatic prostate cancer on chemotherapy followed by [facility] [place] oncology who initially presented to ED on 07/02 after he was found down. His ED trauma work-up was grossly unremarkable, however he was found to have fever and initially admitted medicine for sepsis with unknown source but developed hypotension necessitating vasopressors and was transferred to ICU. He was started on IV vanco and cefepime. Vasopressors were discontinued since 07/03 afternoon and he was transferred to med/tele today. - SOCO Murillo. Coccyx Etiology: ?Stage 2 Pressure Injury Wound Bed: Two open lesions noted with pale pink wound bed Drainage / Odor: unknown Edges: ? attached and well defined [place] wound: MASD - pink blanchable tissue - ? No Induration, Fluctuance or Warmth noted Pain: patient reports pain and tenderness to buttock Goals of Treatment: ? Off Load Pressure foam dressing and Triad to allow for moist wound healing. Recommendations: 1. Turn and Reposition every 2 hours and as needed for patient comfort.? Use pillows or wedges to support off loading positions. 2. Off Load all bony prominences with use of pillows and heel boots if needed.? Apply Preventative foams where needed. ? 3. Monitor for incontinence and moisture control, use barrier creams when needed for prevention and treatment. 4. Provide adequate and supplemental nutrition.? 5. Order low air loss mattress. 6. When applicable maintain blood glucose levels per Providers order. Coccyx - Off Load Pressure with Q2 hr turns and use of pillows - Cleanse with PH balance spray or wipes, pat dry. ?Apply thin layer of Triad to wound bed. Do not remove all of paste between applications as this may cause further skin damage.? Cover with foam dressing to aid in off loading and protection from friction. Change Daily and PRN. Re-consult wound care Nurse for wound deterioration or wound changes.
--- NOTE | 2025-07-04 15:54 | W.MHC.ACPN ---
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 Despite initial PSA response, he experienced biochemical progression with rising PSA values and radiographic evidence of disease progression, including possible new colonic and liver lesions. His course has been complicated by significant comorbidities: coronary artery disease with recent stent placement, hypertension, non-sustained ventricular tachycardia, orthostatic syncope, and recurrent infections. He was recently hospitalized for multifocal pneumonia with acute hypoxic respiratory failure and sepsis, attributed to influenza A, and treated with IV antibiotics, Tamiflu, and a prednisone taper. After discharge, he suffered an unwitnessed fall at home, remaining on the ground for several hours, which led to another admission for sepsis, mild rhabdomyolysis, and further evaluation. Imaging revealed no acute intracranial or cervical spine injury, but did show bilateral pleural effusions, pulmonary edema, and possible new hepatic and colonic lesions. He is currently being managed with IV fluids, cefepime, and vancomycin, with negative blood cultures to date. He was admitted on 07/02/2025 with severe septic shock with multiorgan failure and was immediately transferred to ICU for pressor support for 2 days. Patient was transferred back after being off pressors for nearly 20 hours on 07/04/2025, without any objective source of sepsis. However immediately after being transferred to the floors, patient medially decompensated, started having hematemesis, chest pain, burning sensation in his chest, generalized aches and pains, worsening abdominal pain with abdominal rigidity and distention. During the hospital stay, the patient experienced a rapid clinical deterioration on the medical floor, developing hematemesis, abdominal pain, chest pain, generalized pain and aches, worsening acute kidney injury, and uptrending troponin levels suggestive of acute coronary syndrome. Given his complex medical history, poor functional reserve, and inability to tolerate further chemotherapy or antiplatelet therapy, an extensive multidisciplinary discussion was held involving the patient?s daughter, oncology, cardiology, surgery, gastroenterology, respiratory therapy, speech therapy, and wound care teams. After nearly two hours of [id number] discussions, and in light of the patient?s poor prognosis and lack of viable therapeutic options, the decision was made to transition to comfort measures only (LOSS PREVENTION REPRESENTATIVE) to prioritize symptom management and quality of life. Patient was made LOSS PREVENTION REPRESENTATIVE at around 16:00 on 07/04/2025. Plan Morphine drip Valium Scopolamine patch Comfort care Family at the bedside This note is constructed using voice recognition software. While every effort has been made to ensure accuracy, extruder operator helper errors may have been included. Causes of would be advanced metastatic malignancy of prostate to the bone , multiorgan dysfunction, adult failure to thrive Problems Discussed (1) Malignant neoplasm of prostate metastatic to bone:
--- NOTE | 2025-07-04 15:58 | PM.EVENT ---
Event Note Date of Service: 07/06/25 Event Note: Patient clinically worsening CAT scan not done The family have stated that the patient will be on comfort measures only No further diagnostic or therapeutic intervention planned at this time Discussed with the hospitalist service Time Spent With Patient Time: Total time managing care of this patient today ____ minutes.
[2025-07-04 16:15] LABS: Troponin-I High Sensitivity 143.4 ng/L (<3.5-35.0); ~Lactic Acid-LAB USE ONLY 2.6 mmol/L (0.5-2.0)
--- NOTE | 2025-07-04 16:33 | HO.PM.IMPN ---
Subjective Subjective Date of Service: 07/04/25 Interval History: Patient transitioned to MEN'S LEATHER DRESS BELT MAKER-see the code status note Review of Systems Review of Systems: Yes Unobtainable due to mental status and Other (MEN'S LEATHER DRESS BELT MAKER) Physical Exam Exam: Exam: Appears ill, in acute distress, grunting Appears to be in respiratory distress Abdomen seems semi-rigid and tender overall Bhandari draining dark yellow urine Clinically dry Respiratory crackles and rhonchi Sacral decubitus ulcers Vital Signs: Vital Signs: Last Vital Signs Temp 98.9 F 07/04/25 15:50 Pulse 115 H 07/04/25 15:50 Resp 16 07/04/25 15:50 BP 122/57 L 07/04/25 15:50 Pulse Ox 96 07/04/25 15:50 O2 Del Method Nasal Cannula 07/04/25 15:50 O2 Flow Rate 2 07/04/25 15:50 BMI result Body Mass Index 23.8 Objective Data Active Medications Artificial Tears (Artificial Tears 15 Ml Drops) 2 drop EYE-BOTH Q4H PRN PRN Reason: Dry Eyes Bisacodyl (Bisacodyl 10 Mg Supp.Rect) 10 mg [place] DAILY PRN PRN Reason: Constipation Diazepam (Diazepam 10 Mg/2 Ml Cartridge) 1 mg IVPUSH Q2H PRN PRN Reason: Restlessness Docusate Sodium (Docusate Sodium 100 Mg Capsule) 100 mg PO BEDTIME [facility] Morphine Sulfate (Morphine Sulfate/Ns) 100 mg in 100 mls @ 0 mls/hr IVCONT .Q0M [facility]; Protocol Ondansetron HCl (Ondansetron Odt 4 Mg Tab.Rapdis) 4 mg TRANSLINGU Q8H PRN PRN Reason: Nausea and Vomiting Scopolamine (Scopolamine 1.5 Mg Patch.Td.3) 1.5 mg TRANSDERMA Q72H [facility] Last Admin: 07/04/25 16:19 Dose: 1.5 mg Documented By: RIVER Labs 07/04/25 04:25 07/04/25 04:26 Labs: Laboratory Results - last 24 hr 07/04/25 07/04/25 07/04/25 04:25 04:26 05:55 MCV 92.1 MCH 30.0 MCHC 32.6 RDW 18.5 H Plt Count 97 L MPV 9.1 L Immature Gran % (Auto) 2.5 H Neut % (Auto) 80.2 H Lymph % (Auto) 8.0 L Knox % (Auto) 4.5 Eos % (Auto) 4.6 H Baso % (Auto) 0.2 Lymph # (Auto) 0.7 L Knox # (Auto) 0.4 Eos # (Auto) 0.4 Baso # (Auto) 0.0 Abs Immat Gran (auto) 0.20 H Absolute Neuts (auto) 6.5 Absolute Nucleated RBC 0.050 H Nucleated RBC % (auto) 0.6 H Hold Purple Top PT 19.6 H INR 1.6 H Anion Gap 18 Estim Creat Clear Calc 19.4 Estimated GFR 25 Random Glucose 77 Lactic Acid Lactic Acid F/U @ 2Hr Calcium 7.7 L Phosphorus 3.5 Magnesium 1.8 Total Bilirubin 0.8 AST 78 H ALT 31 Alkaline Phosphatase 133 H Troponin I High Sens Total Protein 5.3 L Albumin 3.4 L Random Vancomycin 21.8 H 07/04/25 07/04/25 07/04/25 13:09 14:30 15:38 MCV MCH MCHC RDW Plt Count MPV Immature Gran % (Auto) Neut % (Auto) Lymph % (Auto) Knox % (Auto) Eos % (Auto) Baso % (Auto) Lymph # (Auto) Knox # (Auto) Eos # (Auto) Baso # (Auto) Abs Immat Gran (auto) Absolute Neuts (auto) Absolute Nucleated RBC Nucleated RBC % (auto) Hold Purple Top PT INR Anion Gap Estim Creat Clear Calc Estimated GFR Random Glucose Lactic Acid 2.9 H* Lactic Acid F/U @ 2Hr 2.6 H* Calcium Phosphorus Magnesium Total Bilirubin AST ALT Alkaline Phosphatase Troponin I High Sens 142.7 H* D 143.4 H* Total Protein Albumin Random Vancomycin 07/04/25 15:52 MCV MCH MCHC RDW Plt Count MPV Immature Gran % (Auto) Neut % (Auto) Lymph % (Auto) Knox % (Auto) Eos % (Auto) Baso % (Auto) Lymph # (Auto) Knox # (Auto) Eos # (Auto) Baso # (Auto) Abs Immat Gran (auto) Absolute Neuts (auto) Absolute Nucleated RBC Nucleated RBC % (auto) Hold Purple Top SEE NOTE PT INR Anion Gap Estim Creat Clear Calc Estimated GFR Random Glucose Lactic Acid Lactic Acid F/U @ 2Hr Calcium Phosphorus Magnesium Total Bilirubin AST ALT Alkaline Phosphatase Troponin I High Sens Total Protein Albumin Random Vancomycin Microbiology Microbiology Results: Microbiology 07/02/25 00:17 Blood Culture - Preliminary Blood - Venous No growth after 48 hours. 07/02/25 00:13 Blood Culture - Preliminary Blood - Venous No growth after 48 hours. 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 Despite initial PSA response, he experienced biochemical progression with rising PSA values and radiographic evidence of disease progression, including possible new colonic and liver lesions. His course has been complicated by significant comorbidities: coronary artery disease with recent stent placement, hypertension, non-sustained ventricular tachycardia, orthostatic syncope, and recurrent infections. He was recently hospitalized for multifocal pneumonia with acute hypoxic respiratory failure and sepsis, attributed to influenza A, and treated with IV antibiotics, Tamiflu, and a prednisone taper. After discharge, he suffered an unwitnessed fall at home, remaining on the ground for several hours, which led to another admission for sepsis, mild rhabdomyolysis, and further evaluation. Imaging revealed no acute intracranial or cervical spine injury, but did show bilateral pleural effusions, pulmonary edema, and possible new hepatic and colonic lesions. He is currently being managed with IV fluids, cefepime, and vancomycin, with negative blood cultures to date. He was admitted on 07/02/2025 with severe septic shock with multiorgan failure and was immediately transferred to ICU for pressor support for 2 days. Patient was transferred back after being off pressors for nearly 20 hours on 07/04/2025, without any objective source of sepsis. However immediately after being transferred to the floors, patient medially decompensated, started having hematemesis, chest pain, burning sensation in his chest, generalized aches and pains, worsening abdominal pain with abdominal rigidity and distention. During the hospital stay, the patient experienced a rapid clinical deterioration on the medical floor, developing hematemesis, abdominal pain, chest pain, generalized pain and aches, worsening acute kidney injury, and uptrending troponin levels suggestive of acute coronary syndrome. Given his complex medical history, poor functional reserve, and inability to tolerate further chemotherapy or antiplatelet therapy, an extensive multidisciplinary discussion was held involving the patient?s daughter, oncology, cardiology, surgery, gastroenterology, respiratory therapy, speech therapy, and wound care teams. After nearly two hours of [id number] discussions, and in light of the patient?s poor prognosis and lack of viable therapeutic options, the decision was made to transition to comfort measures only (MEN'S LEATHER DRESS BELT MAKER) to prioritize symptom management and quality of life. Patient was made MEN'S LEATHER DRESS BELT MAKER at around 16:00 on 07/04/2025. Plan Morphine drip Valium Scopolamine patch Comfort care Family at the bedside This note is constructed using voice recognition software. While every effort has been made to ensure accuracy, baseball umpire for little league errors may have been included. Causes of would be advanced metastatic malignancy of prostate to the bone , multiorgan dysfunction, adult failure to thrive Quality Stroke Does the patient have a stroke diagnosis?: No Reason for No Anti-thrombotic by Day Two: N/A - Med Ordered VTE Prior VTE?: No VTE Risk Level:: Medical - moderate - high VTE Device Contraindication: N/A - Device Ordered VTE Drug Contraindication: N/A - Med Ordered
[2025-07-04] MEDS: diazePAM 10 MG/2 ML CARTRIDGE IVPUSH (16:59)
--- NOTE | 2025-07-04 17:40 | PC.NURSE ---
Pt arrived from ICU in bed approx 1230 on arrival patient became nauseated zofran given with little effect, pt vomited small amount brown liquid. Abdomen mildy distended semi-firm having frequent small soft BM's incont care provided small stage II to coccyx triad applied and foam dressing. Repos with pillows to offload pressure. Pt continues with nausea also c/o increased SOB on 2L oxygen satting low 90's. Dr Agustin notified on unit to see patient. Xray and labs completed per orders. Pt continues with discomfort causing anxiety Dr Agustin notified on unit again to speak with patient and daughter. Transition to PUTTY AND CAULKING SUPERVISOR
[2025-07-04 17:42] LABS: Reflex Lactate? 2 Y
[2025-07-04] MEDS: Morphine Sulfate/NS 100 MG/100 ML PLAST..BAG IVCONT (18:03)
[2025-07-05] MEDS: Morphine Sulfate/NS 100 MG/100 ML PLAST..BAG IVCONT (03:25)
--- NOTE | 2025-07-05 07:25 | HO.PM.IMPN ---
Subjective Subjective Date of Service: 07/05/25 Review of Systems appears more comfortable Review of Systems: Yes Unobtainable due to mental status and Other Physical Exam Exam: Exam: Appears ill, in acute distress, grunting Appears to be in respiratory distress Abdomen seems semi-rigid and tender overall Bhandari draining dark yellow urine Clinically dry Respiratory crackles and rhonchi Sacral decubitus ulcers Vital Signs: Vital Signs: Last Vital Signs Temp 98.9 F 07/04/25 15:50 Pulse 115 H 07/04/25 15:50 Resp 16 07/04/25 15:50 BP 122/57 L 07/04/25 15:50 Pulse Ox 96 07/04/25 15:50 O2 Del Method Nasal Cannula 07/04/25 15:50 O2 Flow Rate 2 07/04/25 15:50 BMI result Body Mass Index 23.8 Objective Data Active Medications Artificial Tears (Artificial Tears 15 Ml Drops) 2 drop EYE-BOTH Q4H PRN PRN Reason: Dry Eyes Bisacodyl (Bisacodyl 10 Mg Supp.Rect) 10 mg [place] DAILY PRN PRN Reason: Constipation Diazepam (Diazepam 10 Mg/2 Ml Cartridge) 1 mg IVPUSH Q2H PRN PRN Reason: Restlessness Last Admin: 07/04/25 16:59 Dose: 1 mg Documented By: RIVER Docusate Sodium (Docusate Sodium 100 Mg Capsule) 100 mg PO BEDTIME [facility] Last Admin: 07/04/25 21:44 Dose: Not Given Documented By: DANIEL Non-Admin Reason: Patient Refused Morphine Sulfate (Morphine Sulfate/Ns) 100 mg in 100 mls @ 0 mls/hr IVCONT .Q0M [facility]; Protocol Last Admin: 07/05/25 03:25 Dose: 4 mg/hr, 4 mls/hr Documented By: DANIEL Ondansetron HCl (Ondansetron Odt 4 Mg Tab.Rapdis) 4 mg TRANSLINGU Q8H PRN PRN Reason: Nausea and Vomiting Scopolamine (Scopolamine 1.5 Mg Patch.Td.3) 1.5 mg TRANSDERMA Q72H [facility] Last Admin: 07/04/25 16:19 Dose: 1.5 mg Documented By: RIVER Labs 07/04/25 04:25 07/04/25 04:26 Labs: Laboratory Results - last 24 hr 07/04/25 07/04/25 07/04/25 13:09 14:30 15:38 Hold Purple Top Lactic Acid 2.9 H* Lactic Acid F/U @ 2Hr 2.6 H* Troponin I High Sens 142.7 H* D 143.4 H* Hold Yellow Top 07/04/25 15:52 Hold Purple Top SEE NOTE Lactic Acid Lactic Acid F/U @ 2Hr Troponin I High Sens Hold Yellow Top See Note Assessment and Plan (1) Prostate cancer metastatic to bone: Status: Acute Assessment and Plan: This is an 85-year-old male with a 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 Despite initial PSA response, he experienced biochemical progression with rising PSA values and radiographic evidence of disease progression, including possible new colonic and liver lesions. His course has been complicated by significant comorbidities: coronary artery disease with recent stent placement, hypertension, non-sustained ventricular tachycardia, orthostatic syncope, and recurrent infections. He was recently hospitalized for multifocal pneumonia with acute hypoxic respiratory failure and sepsis, attributed to influenza A, and treated with IV antibiotics, Tamiflu, and a prednisone taper. After last recent discharge, he suffered an unwitnessed fall at home, remaining on the ground for several hours, which led to another admission for sepsis, mild rhabdomyolysis, and further evaluation. Imaging revealed no acute intracranial or cervical spine injury, but did show bilateral pleural effusions, pulmonary edema, and possible new hepatic and colonic lesions. He is currently being managed with IV fluids, cefepime, and vancomycin, with negative blood cultures to date. He was admitted on 07/02/2025 with severe septic shock with multiorgan failure and was immediately transferred to ICU for pressor support for 2 days. Patient was transferred back after being off pressors for nearly 20 hours on 07/04/2025, without any objective source of sepsis. However immediately after being transferred to the floors, patient medially decompensated, started having hematemesis, chest pain, burning sensation in his chest, generalized aches and pains, worsening abdominal pain with abdominal rigidity and distention. During the hospital stay, the patient experienced a rapid clinical deterioration on the medical floor, developing hematemesis, abdominal pain, chest pain, generalized pain and aches, worsening acute kidney injury, and uptrending troponin levels suggestive of acute coronary syndrome. Given his complex medical history, poor functional reserve, and inability to tolerate further chemotherapy or antiplatelet therapy, an extensive multidisciplinary discussion was held involving the patient?s daughter, oncology, cardiology, surgery, gastroenterology, respiratory therapy, speech therapy, and wound care teams. After nearly two hours of [id number] discussions, and in light of the patient?s poor prognosis and lack of viable therapeutic options, the decision was made to transition to comfort measures only (PCI SECURITY CONSULTANT) to prioritize symptom management and quality of life. Patient was made PCI SECURITY CONSULTANT at around 16:00 on 07/04/2025. Plan Morphine drip Valium Scopolamine patch Comfort care Family at the bedside This note is constructed using voice recognition software. While every effort has been made to ensure accuracy, dicer machine operator errors may have been included. Causes of would be advanced metastatic malignancy of prostate to the bone , multiorgan dysfunction, adult failure to thrive Quality Stroke Does the patient have a stroke diagnosis?: No Reason for No Anti-thrombotic by Day Two: N/A - Med Ordered VTE Prior VTE?: No VTE Risk Level:: Medical - moderate - high VTE Device Contraindication: N/A - Device Ordered VTE Drug Contraindication: N/A - Med Ordered
--- NOTE | 2025-07-05 09:00 | HO.WOUND ---
Wound Consult: Follow up 85yr old male admitted to [facility] [place] on 07/02/25 - See progress notes and H&P for detailed history.? Follow up today for in person wound assessment. Patient yesterday evening transitioned to LINING CUTTER (Comfort Measures Only) status. Arrival to bedside he is surrounded by several family members providing him love and comfort. They requested to remain in the room during my assessment and reposition. The patient did not awake but briefly during my assessment he was not able to communicate verbally at that time. However he appears comfortable and relaxed. The coccyx injury was staged yesterday as a stage 2 pressure injury however after discussions with staff, providers and review of the complexities of his medical status the etiology is complex and unclear. See excerpt from Dr. Agustin Hospitalist note from yesterday evening detailing his medical complexities. 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 Despite initial PSA response, he experienced biochemical progression with rising PSA values and radiographic evidence of disease progression, including possible new colonic and liver lesions. His course has been complicated by significant comorbidities: coronary artery disease with recent stent placement, hypertension, non-sustained ventricular tachycardia, orthostatic syncope, and recurrent infections. He was recently hospitalized for multifocal pneumonia with acute hypoxic respiratory failure and sepsis, attributed to influenza A, and treated with IV antibiotics, Tamiflu, and a prednisone taper. After discharge, he suffered an unwitnessed fall at home, remaining on the ground for several hours, which led to another admission for sepsis, mild rhabdomyolysis, and further evaluation. Imaging revealed no acute intracranial or cervical spine injury, but did show bilateral pleural effusions, pulmonary edema, and possible new hepatic and colonic lesions. He is currently being managed with IV fluids, cefepime, and vancomycin, with negative blood cultures to date. He was admitted on 07/02/2025 with severe septic shock with multiorgan failure and was immediately transferred to ICU for pressor support for 2 days. Patient was transferred back after being off pressors for nearly 20 hours on 07/04/2025, without any objective source of sepsis. However immediately after being transferred to the floors, patient medially decompensated, started having hematemesis, chest pain, burning sensation in his chest, generalized aches and pains, worsening abdominal pain with abdominal rigidity and distention. During the hospital stay, the patient experienced a rapid clinical deterioration on the medical floor, developing hematemesis, abdominal pain, chest pain, generalized pain and aches, worsening acute kidney injury, and uptrending troponin levels suggestive of acute coronary syndrome. Given his complex medical history, poor functional reserve, and inability to tolerate further chemotherapy or antiplatelet therapy, an extensive multidisciplinary discussion was held involving the patient?s daughter, oncology, cardiology, surgery, gastroenterology, respiratory therapy, speech therapy, and wound care teams. After nearly two hours of [id number] discussions, and in light of the patient?s poor prognosis and lack of viable therapeutic options, the decision was made to transition to comfort measures only (LINING CUTTER) to prioritize symptom management and quality of life. Patient was made LINING CUTTER at around 16:00 on 07/04/2025. Plan Morphine drip Valium Scopolamine patch Comfort care Family at the bedside This note is constructed using voice recognition software. While every effort has been made to ensure accuracy, monotype operator errors may have been included. Causes of would be advanced metastatic malignancy of prostate to the bone , multiorgan dysfunction, adult failure to thrive Given the above mentioned complexities the etiology is unclear and multi-factoral: Pressure, Moisture (MASD - IAD), Multiorgan failure, skin failure, nutritionally compromised, pressor support are all impacting skin health. Family aware of patients current skin condition and the likely expected skin deterioration over a period of time. All topical recommendation goals should be to provide comfort and maintain patient dignity during end of life. Patient tolerated turn, reposition and coccyx assessment. Cleansed, Triad and new foam applied, tolerated well by patient. Of note patient is noted for purpura and bruising along with skin tears. Topical treatments in place per protocols. 07/05/25 Coccyx Etiology: Unclear etiology: Pressure, MASD, Skin Failure Wound Bed: Two open lesions noted with pale pink wound bed Drainage / Odor: None Edges: ? attached and well defined dry desquamation noted [place] wound: MASD - pink blanchable tissue - ? No Induration, Fluctuance or Warmth noted Pain: no grimacing noted from patient Goals of Treatment: ? Off Load Pressure, foam dressing and Triad for comfort 07/04/25 Coccyx Recommendations: 1. Turn and Reposition every 2 hours and as needed for patient comfort.? Use pillows or wedges to support off loading positions. 2. Off Load all bony prominences with use of pillows and heel boots if needed.? Apply Preventative foams where needed. ? 3. Monitor for incontinence and moisture control, use barrier creams when needed for prevention and treatment. 4. Provide adequate and supplemental nutrition.? 5. Order low air loss mattress. 6. When applicable maintain blood glucose levels per Providers order. Coccyx - Off Load Pressure with Q2 hr turns and use of pillows - Cleanse with PH balance spray or wipes, pat dry. ?Apply thin layer of Triad to wound bed. Do not remove all of paste between applications as this may cause further skin damage.? Cover with foam dressing to aid in off loading and protection from friction. Change every other day and PRN. Inpatient wound care team will continue to follow along.
--- NOTE | 2025-07-05 09:43 | P.CDIM_ITS ---
PROVIDER RESPONSE TEXT: To clarify, the appropriate diagnosis supported by the clinical indicators: Pressure Injury Stage 2 coccyx QUERY TEXT: PHYSICIAN'S DOCUMENTATION REQUEST Date of Query: 07/05/2025 08:01 AM EST Patient Name: Harshad Salguero Admit Date: 07/02/2025 Dear Anabell Agustin MD, A review of the medical record indicates additional documentation may be needed. Please review below and update the documentation accordingly. Clinical Indicators: Wound care notes patient has Pressure Injury Stage 2 coccyx. Off load pressure foam dressing and Triad to allow for moist wound healing. Based on the above, could you please provide further information regarding the ulcer/wound/injury: Pressure Injury Stage 2 coccyx Other etiology and diagnosis Other (explain) Clinically unable to determine (explain) Thank you, Diamond Feliciano, CCS, CDIS Use of terms such as suspected, likely, concern for, or probable (associated with a specific diagnosis that is being evaluated, monitored, or treated as if it exists) are acceptable and can be coded in the inpatient setting, when documented at the time of discharge. Please use your independent medical judgment in providing your response. THIS QUERY IS PART OF THE PERMANENT MEDICAL RECORD
--- NOTE | 2025-07-05 09:43 | P.CDIM_ITS ---
PROVIDER RESPONSE TEXT: To clarify, the appropriate diagnosis supported by the clinical indicators: Acute pulmonary edema due to heart failure: acute on chronic QUERY TEXT: PHYSICIAN'S DOCUMENTATION REQUEST Date of Query: 07/05/2025 07:57 AM EST Patient Name: Harshad Salguero Admit Date: 07/02/2025 Dear Anabell Agustin MD, A review of the medical record indicates additional documentation may be needed. Please review below and update the documentation accordingly. Clinical Indicators: Progress note 07/04/25 - Imaging showed bilateral pleural effusions, pulmonary edema and possible hepatic and colonic lesions. Small bilateral pleural effusions/pulmonary edema/possible unresolved pneumonia. Started on Cefepime in Ed, Vancomycin added. 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 Acute non-cardiac pulmonary edema due to Acute pulmonary edema due to heart failure Please further specify the type and acuity Chronic pulmonary edema due to non-cardiac etiology Chronic pulmonary edema due to heart failure Please further specify the type and acuity Other (explain) Clinically unable to determine (explain) Thank you, Diamond Feliciano, CCS, CDIS Use of terms such as suspected, likely, concern for, or probable (associated with a specific diagnosis that is being evaluated, monitored, or treated as if it exists) are acceptable and can be coded in the inpatient setting, when documented at the time of discharge. Please use your independent medical judgment in providing your response. THIS QUERY IS PART OF THE PERMANENT MEDICAL RECORD
[2025-07-05] MEDS: Atropine Sulfate 1 % Ophth Sol 2 ML BOTTLE 2 DROP SUBLINGUAL ×3 (10:49→18:31)
--- NOTE | 2025-07-05 12:43 | MHC.CM.PN ---
Pt transitioned to FLEET SALES ASSOCIATE: on narcotic analgesic infusion: may need titration for comfort: Referred to [facility] for ? GIP status; Awaiting assessment.
[2025-07-05 14:32] VITALS: BMI 23.8
--- NOTE | 2025-07-05 14:34 | MHC.CLN ---
CONSULT PT WITH INCREASED NUTRITION RISK R/T PRESSURE INJURY PT NOW TRANSITIONED TO BURN NURSE DIET NPO WILL FOLLOW WITH TEAM AND PROVIDE SUPPORT NEEDED PRIMARY GOAL IS COMFORT SEE FULL ASSESSMENT
--- NOTE | 2025-07-05 14:45 | PM.DS ---
DS: Providers Provider Date of admission: 07/02/25 05:56 Date of discharge: 07/05/25 Primary care physician: Paul Junior MD Consults: 07/04/25 15:56 Consult to Case Management Routine Comment: Consult to Battery Container Tester Routine Comment: Consult to Hospice Routine Comment: DS: Diagnosis Discharge Diagnosis (1) Prostate cancer metastatic to bone: Status: Acute DS: Summary Hospital Course Hospital Course: Chief Complaint: s/p fall Patient is an 85-year-old male with past medical history prostate cancer with metastases to the bone currently under treatment with Oncology, GERD, recent pneumonia requiring admission to the hospital, generalized weakness, colitis/ recent CDIFF, CM, CAD BIBA from home s/p unwitnessed fall. Patient was on the ground for 2-3 hours and denies any hit to the head or LOC. Patient is only on aspirin and no other blood thinners. The patient reports that he lives alone, does not wear an emergency device, and that is phone . There was a dropped phone call to 911 so the police did arrive for further evaluation. The neighbor across the street was away so they were unable to obtain a allan. Police started calling local relatives and finally a nephew arrived and he was able to open house. Patient had his left arm lodged between the bed and the nightstand table and was reporting some mild numbness with a noted mild skin tear. Patient denied any other injuries. Patient did state that he was not able to get up on his own. Patient denies any loss of bowel or bladder control. Workup in the ED included cervical spine and head CT which were negative for any acute findings. Chest CTA was negative for PE but noted small to moderate layering bilateral pleural effusions and pulmonary edema. No evidence of chest lymphadenopathy. Lactic acid 5.[address] of the abdomen and pelvis was done and noted a possible new colonic lesion/neoplasm along with liver lesions. Patient comes in with evidence of sepsis including the lactic acidosis and bandemia of 9. Patient has a low-grade temp. Patient also tachycardic but no hypotension or hypoxia. Patient is experiencing chills on exam. Patient is not having any chest pain or shortness of breath at rest. Patient denies any diarrhea. Appetite is fair. Patient has lost weight with prostate cancer treatment. Patient states he is determined to return home and live alone and is not interested in any alternative arrangements at this time. 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 Despite initial PSA response, he experienced biochemical progression with rising PSA values and radiographic evidence of disease progression, including possible new colonic and liver lesions. His course has been complicated by significant comorbidities: coronary artery disease with recent stent placement, hypertension, non-sustained ventricular tachycardia, orthostatic syncope, and recurrent infections. He was recently hospitalized for multifocal pneumonia with acute hypoxic respiratory failure and sepsis, attributed to influenza A, and treated with IV antibiotics, Tamiflu, and a prednisone taper. After last recent discharge, he suffered an unwitnessed fall at home, remaining on the ground for several hours, which led to another admission for sepsis, mild rhabdomyolysis, and further evaluation. Imaging revealed no acute intracranial or cervical spine injury, but did show bilateral pleural effusions, pulmonary edema, and possible new hepatic and colonic lesions. He is currently being managed with IV fluids, cefepime, and vancomycin, with negative blood cultures to date. He was admitted on 07/02/2025 with severe septic shock with multiorgan failure and was immediately transferred to ICU for pressor support for 2 days. Patient was transferred back after being off pressors for nearly 20 hours on 07/04/2025, without any objective source of sepsis. However immediately after being transferred to the floors, patient medially decompensated, started having hematemesis, chest pain, burning sensation in his chest, generalized aches and pains, worsening abdominal pain with abdominal rigidity and distention. During the hospital stay, the patient experienced a rapid clinical deterioration on the medical floor, developing hematemesis, abdominal pain, chest pain, generalized pain and aches, worsening acute kidney injury, and uptrending troponin levels suggestive of acute coronary syndrome. Given his complex medical history, poor functional reserve, and inability to tolerate further chemotherapy or antiplatelet therapy, an extensive multidisciplinary discussion was held involving the patient?s daughter, oncology, cardiology, surgery, gastroenterology, respiratory therapy, speech therapy, and wound care teams. After nearly two hours of [id number]-[id number] discussions, and in light of the patient?s poor prognosis and lack of viable therapeutic options, the decision was made to transition to comfort measures only (CASTING WHEEL OPERATOR HELPER) to prioritize symptom management and quality of life. Patient was made CASTING WHEEL OPERATOR HELPER at around 16:00 on 07/04/2025. Plan Morphine drip Valium Scopolamine patch Comfort care Family at the bedside This note is constructed using voice recognition software. While every effort has been made to ensure accuracy, grinder errors may have been included. Causes of would be advanced metastatic malignancy of prostate to the bone , multiorgan dysfunction, adult failure to thrive Time spent discussing smoking cessation with patient: more than 10 minutes Status at Discharge Overall status at discharge: other (CASTING WHEEL OPERATOR HELPER) Time Attestation Discharge Coordination Time (in mins): 106 Quality: Safe Use of Opioids Does Pt have an Active Cancer Diagnosis on the Problem List?: Yes Opioid Measure Date for [facility] Report: 06/05/25 Opioid Measure Time for [facility] Report: 14:46 Quality: Stroke Does the patient have a stroke diagnosis?: No Physical Exam Vital Signs: Vital Signs: Last Vital Signs Temp 98.9 F 07/04/25 15:50 Pulse 115 H 07/04/25 15:50 Resp 16 07/04/25 15:50 BP 122/57 L 07/04/25 15:50 Pulse Ox 96 07/04/25 15:50 O2 Del Method Nasal Cannula 07/04/25 15:50 O2 Flow Rate 2 07/04/25 15:50 BMI result Body Mass Index 23.8 DS: Data Data Completed and Pending Labs on day of discharge: Laboratory Results - last 24 hr 07/04/25 07/04/25 07/04/25 14:30 15:38 15:52 Hold Purple Top SEE NOTE Lactic Acid F/U @ 2Hr 2.6 H* Troponin I High Sens 142.7 H* D 143.4 H* Hold Yellow Top See Note Preliminary micro results at discharge 07/02/25 00:17 Blood Culture - Preliminary Blood - Venous No growth after 48 hours. 07/02/25 00:13 Blood Culture - Preliminary Blood - Venous No growth after 48 hours. Discharge Plan Discharge Anticipated Discharge Date/Time: 07/05/25 14:46 Patient Disposition: Hospice - Home Discharge Diagnosis: Advanced prostate cancer metastatic to the bone Referrals: Ean Klein MD [Physician, Hematology & Oncology] - 1 Week Paul Junior MD [Primary Care Provider, Internal Medicine] - 1 Week Discharge Medications: New morphine in 0.9 % sodium chlor 1 mg/mL Solution 100 mg continuous IV infusion .Q0M Qty: 1200 0RF Rx Instructions: Partial Fill upon patient request. diazepam 5 mg/mL Syringe 1 mg IVPUSH Q2H PRN (Reason: Restlessness) Qty: 48 0RF Artificial Tears([id number]-[id number]) 1-0.2-0.2 % Drops 2 drp ophthalmic (eye) Q4H PRN (Reason: Dry Eyes) 30 Days Qty: 30 0RF docusate sodium 100 mg Capsule 100 mg PO BEDTIME Qty: 20 0RF ondansetron 4 mg Tablet,Disintegrating 4 mg translingual Q8H PRN (Reason: Nausea And Vomiting) 30 Days Qty: 30 0RF atropine 1 % Drops 2 drp sublingual Q2H PRN (Reason: Secretions) Qty: 5 0RF bisacodyl [Gentle Laxative (bisacodyl)] 10 mg Suppository [address] DAILY PRN (Reason: Constipation) Qty: 30 0RF scopolamine base [Transderm-Scop] 1 mg over 3 days Patch 3 Day 1.5 mg transdermal Q72H Qty: 10 0RF Discontinued prednisone 1 mg Tablet 4 mg PO DAILY Qty: 100 0RF Rx Instructions: Take 4 mg (4 tablets together) daily ondansetron 8 mg tablet,disintegrating 8 mg PO Q8H PRN (Reason: nausea/vomiting) aspirin 81 mg tablet,chewable 1 tab PO DAILY Tums 300 mg (750 mg) Tablet,Chewable 300 mg PO BID PRN (Reason: Stomach Upset) ibuprofen [Advil] 200 mg Tablet 200 - 400 mg PO Q6H PRN (Reason: Pain) multivitamin Tablet 1 tab PO DAILY Discharge Orders: Discharge Order (Routine); Ordered 07/05/25 Ordered By: Anabell Agustin Stand Alone Forms: Patient Portal Discharge page Print Language: Hungarian Care Plan Goals: Please refer to the discharge summary above Health Concerns: See above Plan of Treatment: See above Assessment: See above
[2025-07-06 02:18] VITALS: RESP 8
[2025-07-06] MEDS: Morphine Sulfate/NS 100 MG/100 ML PLAST..BAG IVCONT (02:18)
--- NOTE | 2025-07-06 11:20 | P.DS_ITS ---
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 Despite initial PSA response, he experienced biochemical progression with rising PSA values and radiographic evidence of disease progression, including possible new colonic and liver lesions. His course has been complicated by significant comorbidities: coronary artery disease with recent stent placement, hypertension, non-sustained ventricular tachycardia, orthostatic syncope, and recurrent infections. He was recently hospitalized for multifocal pneumonia with acute hypoxic respiratory failure and sepsis, attributed to influenza A, and treated with IV antibiotics, Tamiflu, and a prednisone taper. After last recent discharge, he suffered an unwitnessed fall at home, remaining on the ground for several hours, which led to another admission for sepsis, mild rhabdomyolysis, and further evaluation. Imaging revealed no acute intracranial or cervical spine injury, but did show bilateral pleural effusions, pulmonary edema, and possible new hepatic and colonic lesions. He is currently being managed with IV fluids, cefepime, and vancomycin, with negative blood cultures to date. He was admitted on 07/02/2025 with severe septic shock with multiorgan failure and was immediately transferred to ICU for pressor support for 2 days. Patient was transferred back after being off pressors for nearly 20 hours on 07/04/2025, without any objective source of sepsis. However immediately after being transferred to the floors, patient medially decompensated, started having hematemesis, chest pain, burning sensation in his chest, generalized aches and pains, worsening abdominal pain with abdominal rigidity and distention. During the hospital stay, the patient experienced a rapid clinical deterioration on the medical floor, developing hemetemesis, abdominal pain, chest pain, generalized pain and aches, worsening acute kidney injury, and uptrending troponin levels suggestive of acute coronary syndrome. Given his complex medical history, poor functional reserve, and inability to tolerate further chemotherapy or antiplatelet therapy, an extensive multidisciplinary discussion was held involving the patient?s daughter, oncology, cardiology, surgery, gastroenterology, respiratory therapy, speech therapy, and wound care teams. After nearly two hours of gpzdc-[id number]-logm discussions, and in light of the patient?s poor prognosis and lack of viable therapeutic options, the decision was made to transition to comfort measures only (TEMPLATE LAYOUT WORKER) to prioritize symptom management and quality of life. 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 Morphine drip Valium Scopolamine patch Comfort care Family at the bedside Causes of would be advanced metastatic malignancy of prostate to the bone , multiorgan dysfunction, adult failure to thrive Time Attestation Discharge Coordination Time (in mins): 40 mins Quality: Safe Use of Opioids Does Pt have an Active Cancer Diagnosis on the Problem List?: No Quality: Stroke Does the patient have a stroke diagnosis?: No Physical Exam Exam: Exam: Pt appears comfortable, detailed exam deferred. Vital Signs: Vital Signs: Last Vital Signs Temp 98.9 F 07/04/25 15:50 Pulse 115 H 07/04/25 15:50 Resp 8 L 07/06/25 02:18 BP 122/57 L 07/04/25 15:50 Pulse Ox 96 07/04/25 15:50 O2 Del Method Nasal Cannula 07/04/25 15:50 O2 Flow Rate 2 07/04/25 15:50 BMI result Body Mass Index 23.8 DS: Data Data Completed and Pending Labs on day of discharge: Preliminary micro results at discharge 07/02/25 00:17 Blood Culture - Preliminary Blood - Venous No growth after 48 hours. 07/02/25 00:13 Blood Culture - Preliminary Blood - Venous No growth after 48 hours. Discharge Plan Discharge Anticipated Discharge Date/Time: 07/06/25 11:11 Patient Disposition: Hospice - Medical Facility Discharge Diagnosis: Advanced prostate cancer metastatic to the bone Referrals: Ean Klein MD [Physician, Hematology & Oncology] - 1 Week Paul Junior MD [Primary Care Provider, Internal Medicine] - 1 Week Discharge Medications: New morphine in 0.9 % sodium chlor 1 mg/mL Solution 100 mg continuous IV infusion .Q0M Qty: 1200 0RF Rx Instructions: Partial Fill upon patient request. scopolamine base [Transderm-Scop] 1 mg over 3 days Patch 3 Day 1.5 mg transdermal Q72H Qty: 10 0RF diazepam 5 mg/mL Syringe 1 mg IVPUSH Q2H PRN (Reason: Restlessness) Qty: 48 0RF atropine 1 % Drops 2 drp sublingual Q2H PRN (Reason: Secretions) Qty: 5 0RF Artificial Tears(lo-etqd-qcoh) 1-0.2-0.2 % Drops 2 drp ophthalmic (eye) Q4H PRN (Reason: Dry Eyes) 30 Days Qty: 30 0RF bisacodyl [Gentle Laxative (bisacodyl)] 10 mg Suppository 10 mg UT DAILY PRN (Reason: Constipation) Qty: 30 0RF docusate sodium 100 mg Capsule 100 mg PO BEDTIME Qty: 20 0RF ondansetron 4 mg Tablet,Disintegrating 4 mg translingual Q8H PRN (Reason: Nausea And Vomiting) 30 Days Qty: 30 0RF Discontinued prednisone 1 mg Tablet 4 mg PO DAILY Qty: 100 0RF Rx Instructions: Take 4 mg (4 tablets together) daily ondansetron 8 mg tablet,disintegrating 8 mg PO Q8H PRN (Reason: nausea/vomiting) aspirin 81 mg tablet,chewable 1 tab PO DAILY Tums 300 mg (750 mg) Tablet,Chewable 300 mg PO BID PRN (Reason: Stomach Upset) ibuprofen [Advil] 200 mg Tablet 200 - 400 mg PO Q6H PRN (Reason: Pain) multivitamin Tablet 1 tab PO DAILY Discharge Orders: Discharge Order (Routine); Ordered 07/06/25 Ordered By: Promise Rothman Activity on Discharge: As tolerated Stand Alone Forms: Patient Portal Discharge page Print Language: Hebrew Care Plan Goals: Please refer to the discharge summary above Health Concerns: See above Plan of Treatment: See above Assessment: See above
== END 2025-07-06 11:56 | disposition hospice, inpatient (51) | DRG 871 ==
LOC: HO.ED 07-02 02:18 → HO.EDOVER 07-02 06:02 → HO.ICU 07-02 12:07 → HO.IMC 07-04 09:59
PROVIDERS: Emergency Medicine Emergency Medical Services; Internal Medicine Critical Care Medicine; Student in an Organized Health Care Education/Training Program; Admitting Provider Nurse Practitioner Family; Emergency Provider Emergency Medicine; PCP Student in an Organized Health Care Education/Training Program; Visit Provider Hospitalist
DX: A41.9 Sepsis, unspecified organism (principal); R65.21 Severe sepsis with septic shock; C79.51 Secondary malignant neoplasm of bone; M62.82 Rhabdomyolysis; C78.7 Secondary malignant neoplasm of liver and intrahepatic bile duct; F05 Delirium due to known physiological condition; N17.9 Acute kidney failure, unspecified; I11.0 Hypertensive heart disease with heart failure; Z66 Do not resuscitate; I25.10 Atherosclerotic heart disease of native coronary artery without angina pectoris; I50.9 Heart failure, unspecified; Z51.5 Encounter for palliative care; K21.9 Gastro-esophageal reflux disease without esophagitis; C61 Malignant neoplasm of prostate; K63.9 Disease of intestine, unspecified; W19.XXXA Unspecified fall, initial encounter; L89.152 Pressure ulcer of sacral region, stage 2; Z20.822 Contact with and (suspected) exposure to COVID-19; Z79.899 Other long term (current) drug therapy
CPT/HCPCS: 36415; 70450; 71045; 71275; 72125; 74018; 74177; 80053; 80202; 81001; 82550; 82947; 83605; 83735; 83880; 84100; 84443; 84484; 85007; 85025; 85027; 85610; 87040; 87637; 93005; 99285; J0131; J0613; J0692; J1650; J1938; J2270; J2405; J2470; J3360; J3374; J7120; P9047; Q9967

== ENCOUNTER → 2025-07-01 23:59 | Outpatient (BNV) | payer MEDICARE, OTHER, SELFPAY | PROVIDERS: Admitting Provider Nurse Practitioner Family; Emergency Provider Emergency Medicine; PCP Student in an Organized Health Care Education/Training Program; Visit Provider Internal Medicine Cardiovascular Disease | DX: R00.0 Tachycardia, unspecified (principal) | CPT/HCPCS: 93010 ==

== ENCOUNTER → 2025-07-02 00:19 | Outpatient (BNV) | payer MEDICARE, OTHER, SELFPAY | PROVIDERS: Emergency Provider Emergency Medicine; PCP Student in an Organized Health Care Education/Training Program; Visit Provider Radiology Diagnostic Radiology | DX: K76.89 Other specified diseases of liver (principal); K56.690 Other partial intestinal obstruction; J90 Pleural effusion, not elsewhere classified; J81.0 Acute pulmonary edema; M47.812 Spondylosis without myelopathy or radiculopathy, cervical region; Z04.3 Encounter for examination and observation following other accident; S09.90XA Unspecified injury of head, initial encounter | CPT/HCPCS: 70450; 71275; 72125; 74177 ==

== ENCOUNTER 2025-07-02 05:56 | Outpatient (BNV) | payer MEDICARE, OTHER, SELFPAY | END 2025-07-04 13:21 | PROVIDERS: Admitting Provider Nurse Practitioner Family; Emergency Provider Emergency Medicine; PCP Student in an Organized Health Care Education/Training Program; Visit Provider Internal Medicine Cardiovascular Disease | DX: R00.0 Tachycardia, unspecified (principal) | CPT/HCPCS: 93010 ==

== ENCOUNTER 2025-07-02 05:56 | Outpatient (BNV) | payer MEDICARE, OTHER, SELFPAY | END 2025-07-02 11:21 | PROVIDERS: Admitting Provider Nurse Practitioner Family; Emergency Provider Emergency Medicine; PCP Student in an Organized Health Care Education/Training Program; Visit Provider Internal Medicine Cardiovascular Disease | DX: R00.0 Tachycardia, unspecified (principal) | CPT/HCPCS: 93010 ==

== ENCOUNTER 2025-07-02 05:56 | Outpatient (BNV) | payer MEDICARE, OTHER, SELFPAY | END 2025-07-04 13:38 | PROVIDERS: Admitting Provider Nurse Practitioner Family; Emergency Provider Emergency Medicine; PCP Student in an Organized Health Care Education/Training Program; Visit Provider Radiology Diagnostic Radiology | DX: R14.0 Abdominal distension (gaseous) (principal); J81.1 Chronic pulmonary edema; J90 Pleural effusion, not elsewhere classified | CPT/HCPCS: 71045; 74018 ==

== ENCOUNTER → 2025-07-02 05:56 | Outpatient (BNV) | payer MEDICARE, OTHER, SELFPAY | PROVIDERS: Admitting Provider Nurse Practitioner Family; Emergency Provider Emergency Medicine; PCP Student in an Organized Health Care Education/Training Program; Visit Provider Internal Medicine Critical Care Medicine | DX: A41.9 Sepsis, unspecified organism (principal) | CPT/HCPCS: 99291; 99499 ==

== ENCOUNTER → 2025-07-02 05:56 | Outpatient (BNV) | payer MEDICARE, OTHER, SELFPAY | PROVIDERS: Admitting Provider Nurse Practitioner Family; Emergency Provider Emergency Medicine; PCP Student in an Organized Health Care Education/Training Program; Visit Provider Nurse Practitioner Family | DX: C61 Malignant neoplasm of prostate (principal); C79.51 Secondary malignant neoplasm of bone | CPT/HCPCS: 99222; 99232; 99233; 99499 ==

== ENCOUNTER → 2025-07-02 05:56 | Outpatient (BNV) | payer MEDICARE, OTHER, SELFPAY | PROVIDERS: Admitting Provider Nurse Practitioner Family; Emergency Provider Emergency Medicine; PCP Student in an Organized Health Care Education/Training Program; Visit Provider Physician Assistant Surgical | DX: R11.10 Vomiting, unspecified (principal) | CPT/HCPCS: 99222; 99499 ==

== ENCOUNTER → 2025-07-02 05:56 | Outpatient (BNV) | payer MEDICARE, OTHER, SELFPAY | PROVIDERS: Admitting Provider Nurse Practitioner Family; Emergency Provider Emergency Medicine; PCP Student in an Organized Health Care Education/Training Program; Visit Provider Internal Medicine Medical Oncology | DX: C61 Malignant neoplasm of prostate (principal); C79.51 Secondary malignant neoplasm of bone | CPT/HCPCS: 99222 ==

== ENCOUNTER 2025-07-06 12:16 | Inpatient (IN) | payer OTHER, SELFPAY ==
--- NOTE | 2025-07-06 11:51 | PM.IMHP ---
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 Despite initial PSA response, he experienced biochemical progression with rising PSA values and radiographic evidence of disease progression, including possible new colonic and liver lesions. His course has been complicated by significant comorbidities: coronary artery disease with recent stent placement, hypertension, non-sustained ventricular tachycardia, orthostatic syncope, and recurrent infections. He was recently hospitalized for multifocal pneumonia with acute hypoxic respiratory failure and sepsis, attributed to influenza A, and treated with IV antibiotics, Tamiflu, and a prednisone taper. After last recent discharge, he suffered an unwitnessed fall at home, remaining on the ground for several hours, which led to another admission for sepsis, mild rhabdomyolysis, and further evaluation. Imaging revealed no acute intracranial or cervical spine injury, but did show bilateral pleural effusions, pulmonary edema, and possible new hepatic and colonic lesions. He is currently being managed with IV fluids, cefepime, and vancomycin, with negative blood cultures to date. He was admitted on 07/02/2025 with severe septic shock with multiorgan failure and was immediately transferred to ICU for pressor support for 2 days. Patient was transferred back after being off pressors for nearly 20 hours on 07/04/2025, without any objective source of sepsis. However immediately after being transferred to the floors, patient medially decompensated, started having hematemesis, chest pain, burning sensation in his chest, generalized aches and pains, worsening abdominal pain with abdominal rigidity and distention. During the hospital stay, the patient experienced a rapid clinical deterioration on the medical floor, developing hemetemesis, abdominal pain, chest pain, generalized pain and aches, worsening acute kidney injury, and uptrending troponin levels suggestive of acute coronary syndrome. Given his complex medical history, poor functional reserve, and inability to tolerate further chemotherapy or antiplatelet therapy, an extensive multidisciplinary discussion was held involving the patient?s daughter, oncology, cardiology, surgery, gastroenterology, respiratory therapy, speech therapy, and wound care teams. After nearly two hours of wuozu-hu-riyn discussions, and in light of the patient?s poor prognosis and lack of viable therapeutic options, the decision was made to transition to comfort measures only (WIRE FRAME MAKER) to prioritize symptom management and quality of life. 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 Morphine drip Valium Scopolamine patch Comfort care Family at the bedside Causes of would be advanced metastatic malignancy of prostate to the bone , multiorgan dysfunction, adult failure to thrive Review of Systems Review of Systems: deferred [facility] Medical History (Updated 07/06/25 @ 11:53 by Promise Rothman MD) Vomiting Advance care planning Debility Hearing loss GERD without esophagitis Constipation Prostate cancer Prostate cancer metastatic to bone Hemorrhoids Elevated PSA Family History Mother No problems noted. Father No problems noted. 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 Cognitive needs: No Hearing needs: No (pt throw them away, he's not using them ) Vision needs: Yes (rx ) Meds Allergies Allergy/AdvReac Type Severity Reaction Status Date / Time amoxicillin (From Augmentin) Allergy Severe tongue/facial Verified 07/01/25 23:52 swelling clavulanic acid (From Allergy Severe tongue/facial Verified 07/01/25 23:52 Augmentin) swelling Active Medications: Current Medications Acetaminophen (Acetaminophen 325 Mg Tablet) 650 mg PO Q4H PRN PRN Reason: Fever >/= 100, Pain, mild 1-3 Docusate Sodium (Docusate Sodium 100 Mg Capsule) 100 mg PO BEDTIME [facility] Morphine Sulfate (Morphine Sulfate/Ns) 100 mg in 100 mls @ 0 mls/hr IVCONT .Q0M [facility]; Protocol Ondansetron HCl (Ondansetron Odt 4 Mg Tab.Rapdis) 4 mg TRANSLINGU Q8H PRN PRN Reason: Nausea and Vomiting Scopolamine (Scopolamine 1.5 Mg Patch.Td.3) 1.5 mg TRANSDERMA Q72H [facility] Physical Exam Vital Signs and Narrative: deferred Assessment and Plan (1) Hospice care patient: Status: Acute Plan see HPI Quality Stroke Does the patient have a stroke diagnosis?: No VTE Prior VTE?: No VTE Risk Level:: Medical - low VTE Device Contraindication: Treatment Not Indicated VTE Drug Contraindication: Treatment Not Indicated
[2025-07-06 14:10] VITALS: RESP 8
[2025-07-06] MEDS: Morphine Sulfate/NS 100 MG/100 ML PLAST..BAG IVCONT (14:10)
--- NOTE | 2025-07-06 14:56 | MHC.CM.PN ---
PATIENT WILL REMAIN ON TUMBLERS SUPERVISOR/[facility], WITH CONTINUOUS MORPHINE GTT.
--- OUTSIDE RECORDS SUMMARY | 2025-07-06 17:36 | XMS_ITS | Clinical Summary ---
Author Organization [facility] Address [address] [place] [address] Phone Care Team Providers Care Distillery Worker General Name Role Phone Unavailable Primary Care Provider Unavailabl e Encounters Date Type Department Care Team Description 04/13/2025 1:40 PM EDT - 04/13/2025 11:59 PM EDT Hospital Encounter [facility] PET Scan [address] [place] [address] Prostate cancer (CMS/[facility] V24, CMS/[facility] V28) Discharge Disposition: Home or Self [...] Routine 04/13/2025 6:32 PM EDT Prostate cancer ([facility] V24, [facility] V28) from Last 3 Months Results [...] Signed Date: 04/18/2025 10:38 ET Workstation ID: [id number] Transcribed By: Self Edit Transcribed Date: 04/18/2025 [...] not designed to produce and cannot replace dcxyv-wj-ghh-art true diagnostic CT examination with specific protocols. [...] CT not designed toproduce and cannot replace zoaqh-nb-htp-art true diagnostic CT examinationwith specific protocols. Standardized [...] Signed Date: 04/18/2025 10:38 ET Workstation ID: [id number] Transcribed By: Self Edit Transcribed Date: 04/18/2025 06:23 ET Renée Klein MD IMG NM PROCEDURES Final Result from Last 3 Months Insurance MEDICARE [facility]
--- OUTSIDE RECORDS SUMMARY | 2025-07-06 17:36 | XMS_ITS | Encounter Summary ---
Author Organization [facility] Address [address] [place] [address] Phone Care Team Providers Care Gas Welder Apprentice Name Role Phone Kashif Ly MD Primary Care Provider Self-Referred, Patient Unavailable Unavailab Chinmay Bear [facility] Unavailable [phone] Carlos Mi MD Unavailable Ean Klein MD Unavailable Encounter Details Date Type Department Care Team (Late st Contact Info) Description 09/03/2023 Ancillary Orders Outside Imaging Chinmay Rg, [facility] [address] [place] [address] [email or web address] U Social History Tobacco Use Types Packs/Day [...] on filedocumented in this encounter Care Teams Gas Welder Apprentice Relationship Specialty Start Date End Date Kashif Ly MD [address] [place] [address] [place] [address] PCP - General Internal Medicine 09/02/23 Self-Referred, Patient 09/02/23 Chinmay Rg [facility] [address] [place] [phone] [email or web address] Medical Oncology 09/02/23 Carlos Mi MD [address] [place] [address] Urology 09/03/23 Ean Klein MD [address] [place] [address] 09/03/23 documented as of this encounter Additional Source Comments The information contained in this document represents components of the legal health record. It is not the complete legal health record.[facility]
--- OUTSIDE RECORDS SUMMARY | 2025-07-06 17:37 | XMS_ITS | Encounter Summary ---
Author Organization [facility] Address [address] [facility] [facility] [address] [place] [address] Phone Care Team Providers Care Newspaper Stuffer Name Role Phone Kashif Ly MD Primary Care Provider Self-Referred, Patient Unavailable Unavailab Chinmay Bear [facility] Unavailable [phone] Carlos Mi MD Unavailable [phone] Ean Klein MD Unavailable Encounter Details Date Type Department Care Team (Late st Contact Info) Description 09/03/2023 Ancillary Orders Outside Imaging Chinmay Rg, [facility] [address] [place] [address] [email or web address] U Social History Tobacco Use Types Packs/Day [...] on filedocumented in this encounter Care Teams Newspaper Stuffer Relationship Specialty Start Date End Date Kashif Ly MD [address] [place] [address] [place] [address] PCP - General Internal Medicine 09/02/23 Self-Referred, Patient 09/02/23 Chinmay Rg [facility] [address] [place] [phone] [email or web address] Medical Oncology 09/02/23 Carlos Mi MD [address] [place] [phone] Urology 09/03/23 Ean Klein MD [address] [place] [address] 09/03/23 documented as of this encounter Additional Source Comments The information contained in this document represents components of the legal health record. It is not the complete legal health record.[facility]
--- OUTSIDE RECORDS SUMMARY | 2025-07-06 17:37 | XMS_ITS | Clinical Summary ---
Author Organization [facility] Address [address] [place] [address] Phone Care Team Providers Care Shuttle Car Operator Name Role Phone Kashif Ly MD Primary Care Provider Self-Referred, Patient Unavailable Unavailab Chinmay Bear [facility] Unavailable Carlos Mi MD Unavailable [phone] Ean Klein MD Unavailable Allergies No known [...] file Insurance MEDICARE PART A & B [employer] MEDICARE SUPPLEMENT MEDICARE PART A & B [employer] MEDICARE SUPPLEMENT MEDICARE PART A & B [employer] MED[employer] SUPPLEMENT MEDICARE PART A & B [employer] MEDICARE SUPPLEMENT MEDICARE PART A & B [facility] EXTENSION MEDICARE SUPPLEMENT MEDICARE PART A & B [facility] EXTENSION MEDICARE SUPPLEMENT Care Teams Shuttle Car Operator Relationship Specialty Start Date End Date Kashif Ly MD [address] [place] [address] [address] PCP - General Internal Medicine 09/02/23 Self-Referred, Patient 09/02/23 Chinmay Rg [facility] [address] [place] [id number] [email or web address] Medical Oncology 09/02/23 Carlos Mi MD [address] [place] [address] Urology 09/03/23 Ean Klein MD [address] [place] [address] 09/03/23 Additional Source Comments The information contained in this document represents components of the legal health record. It is not the complete legal health record.[facility]
--- OUTSIDE RECORDS SUMMARY | 2025-07-06 17:37 | XMS_ITS | Encounter Summary ---
Author Organization [facility] Address [address] [facility] [facility] [address] [place] [address] Phone Care Team Providers Care Emergency Care Attendant Name Role Phone Kashif Ly MD Primary Care Provider Self-Referred, Patient Unavailable Unavailab Chinmay Bear [facility] Unavailable Carlos Mi MD Unavailable [phone] Ean Klein MD Unavailable Encounter Details Date Type Department Care Team (Late st Contact Info) Description 09/03/2023 Ancillary Orders Outside Imaging Chinmay Rg, [facility] [address] [place] [address] [email or web address] U Social History Tobacco Use Types Packs/Day [...] on filedocumented in this encounter Care Teams Emergency Care Attendant Relationship Specialty Start Date End Date Kashif Ly MD [address] [place] [address] [place] [address] PCP - General Internal Medicine 09/02/23 Self-Referred, Patient 09/02/23 Chinmay Rg [facility] [address] [place] [phone] [email or web address] 09/02/23 Carlos Mi MD [address] [place] [phone] Urology 09/03/23 Ean Klein MD [address] [place] [phone] 09/03/23 documented as of this encounter Additional Source Comments The information contained in this document represents components of the legal health record. It is not the complete legal health record.[facility]
--- NOTE | 2025-07-07 07:23 | PC.NURSE ---
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 RR 8 overnight , MS drip continued. Patient's family at bedside.
--- NOTE | 2025-07-07 13:32 | HO.PM.IMPN ---
Subjective Subjective Date of Service: 07/07/25 Interval History: Comfortable, sleeping. Family by bedside Review of Systems Review of Systems: Yes Unobtainable due to mental condition and Unobtainable due to mental status Physical Exam Exam: Exam: General: A&O x0, comfortable, no pain Cardiac: S1, S2 auscultated with no S3/4, no MRG. Well perfused. Respiratory: Decreased inspiratory expiratory breath sounds bilaterally, with crepitations auscultated, coarse breathing, no distress GI/ : No abdominal pain on palpation, no masses or distentions. MSK: Sarcopenia and cachectic - diffuse muscular atrophy in upper and lower extremities bilaterally Neurological: Not assessed Vital Signs: Vital Signs: Last Vital Signs Resp 8 L 07/06/25 14:10 Objective Data Active Medications Acetaminophen (Acetaminophen 325 Mg Tablet) 650 mg PO Q4H PRN PRN Reason: Fever >/= 100, Pain, mild 1-3 Docusate Sodium (Docusate Sodium 100 Mg Capsule) 100 mg PO BEDTIME [facility] Last Admin: 07/06/25 22:42 Dose: Not Given Documented By: ILYA Non-Admin Reason: NPO Morphine Sulfate (Morphine Sulfate/Ns) 100 mg in 100 mls @ 0 mls/hr IVCONT .Q0M [facility]; Protocol Last Admin: 07/06/25 14:10 Dose: 4 mg/hr, 4 mls/hr Documented By: BENTON Ondansetron HCl (Ondansetron Odt 4 Mg Tab.Rapdis) 4 mg TRANSLINGU Q8H PRN PRN Reason: Nausea and Vomiting Scopolamine (Scopolamine 1.5 Mg Patch.Td.3) 1.5 mg TRANSDERMA Q72H [facility] Last Admin: 07/06/25 14:11 Dose: 1.5 mg Documented By: BENTON Assessment and Plan (1) Advance care planning: Status: Acute (2) Hospice care patient: Status: Acute Plan 85-year-old male with 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 Progressive disease with new hepatic and colonic lesions Multiorgan failure (sepsis, acute kidney injury, respiratory failure, GI bleeding, possible acute coronary syndrome) Advanced cardiac disease (coronary artery disease with recent stent, non-sustained ventricular tachycardia) Recurrent infections (recent multifocal pneumonia, sepsis) Failure to thrive and functional decline (multiple admissions, poor functional reserve, recent unwitnessed fall) Symptom burden (pain, nausea, secretions, anxiety, constipation, dry eyes) Inability to tolerate further chemotherapy or antiplatelet therapy Poor prognosis with lack of viable therapeutic options Psychosocial/family considerations (family at bedside, involved in byqce-vf-hkfa discussions) Comfort Measures Only Goals of Care: The goal is to provide maximal comfort and preserved dignity, allowing for a natural dying process. Life prolonging treatments are not being pursued due to multi organ dysfunction with terminal diagnosis, poor prognosis, overwhelming disease burden. Advanced directives: Patient's advanced directive is on file and reviewed. The patient's surrogate, is aware and agrees with the plan for PROGRAMMER. Interventions: All interventions will be focused on symptom management including pain, anxiety, dyspnea, nausea/vomiting. Resuscitation status: PROGRAMMER orders are in place Total time managing care of this patient today: 35 minutes. Quality Stroke Does the patient have a stroke diagnosis?: No VTE Prior VTE?: No VTE Risk Level:: Medical - low VTE Device Contraindication: Treatment Not Indicated VTE Drug Contraindication: Treatment Not Indicated
[2025-07-07 14:23] VITALS: RESP 7
[2025-07-07] MEDS: Morphine Sulfate/NS 100 MG/100 ML PLAST..BAG IVCONT (14:23)
[2025-07-07 20:22] VITALS: RESP 8
--- NOTE | 2025-07-08 09:11 | P.DS_ITS ---
DS: Providers Provider Date of admission: 07/06/25 12:16 Primary care physician: Paul Junior MD DS: Diagnosis Discharge Diagnosis (1) Advance care planning: Status: Acute (2) Hospice care patient: Status: Acute Physical Exam Vital Signs: Vital Signs: Last Vital Signs Resp 8 L 07/07/25 20:22 Discharge Plan Discharge Referrals: Paul Junior MD [Primary Care Provider, Internal Medicine] - 1 Week Discharge Medications: No Action morphine in 0.9 % sodium chlor 1 mg/mL Solution 100 mg continuous IV infusion .Q0M Qty: 1200 0RF Rx Instructions: Partial Fill upon patient request. scopolamine base [Transderm-Scop] 1 mg over 3 days Patch 3 Day 1.5 mg transdermal Q72H Qty: 10 0RF diazepam 5 mg/mL Syringe 1 mg IVPUSH Q2H PRN (Reason: Restlessness) Qty: 48 0RF atropine 1 % Drops 2 drp sublingual Q2H PRN (Reason: Secretions) Qty: 5 0RF Artificial Tears(br-uloa-folp) 1-0.2-0.2 % Drops 2 drp ophthalmic (eye) Q4H PRN (Reason: Dry Eyes) 30 Days Qty: 30 0RF bisacodyl [Gentle Laxative (bisacodyl)] 10 mg Suppository 10 mg AK DAILY PRN (Reason: Constipation) Qty: 30 0RF docusate sodium 100 mg Capsule 100 mg PO BEDTIME Qty: 20 0RF ondansetron 4 mg Tablet,Disintegrating 4 mg translingual Q8H PRN (Reason: Nausea And Vomiting) 30 Days Qty: 30 0RF Print Language: Estonian
--- NOTE | 2025-07-08 09:18 | PM.DDS ---
Discharge Sum: Prov Provider Primary care physician: Paul Junior MD Pronouncing clinician: Karol Hare Discharge Sum: Diag Contributing Factors (1) Advance care planning: (2) Hospice care patient: (3) Hypotension: (4) Cardiomyopathy: (5) CAD (coronary artery disease): (6) Nonsustained ventricular tachycardia: (7) GERD without esophagitis: (8) Acute renal insufficiency: (9) Elevated WBC count: (10) Prostate cancer metastatic to bone: (11) Hormone resistant prostate cancer: (12) Prostate cancer: (13) Rhabdomyolysis: (14) Multifocal pneumonia: (15) Acute respiratory failure with hypoxia: (16) H1N1 influenza with pneumonia: (17) Weakness: (18) Debility: Discharge Sum: Summary Date and Time Date of admission: 07/06/25 12:16 Date of : 07/08/25 Time of : 08:45 Summary Details: 85-year-old male with 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 Progressive disease with new hepatic and colonic lesions Multiorgan failure (sepsis, acute kidney injury, respiratory failure, GI bleeding, possible acute coronary syndrome) Advanced cardiac disease (coronary artery disease with recent stent, non-sustained ventricular tachycardia) Recurrent infections (recent multifocal pneumonia, sepsis) Failure to thrive and functional decline (multiple admissions, poor functional reserve, recent unwitnessed fall) Symptom burden (pain, nausea, secretions, anxiety, constipation, dry eyes) Inability to tolerate further chemotherapy or antiplatelet therapy Poor prognosis with lack of viable therapeutic options Psychosocial/family considerations (family at bedside, involved in [id number] discussions) Comfort Measures Only Goals of Care: The goal is to provide maximal comfort and preserved dignity, allowing for a natural dying process. Life prolonging treatments are not being pursued due to multi organ dysfunction with terminal diagnosis, poor prognosis, overwhelming disease burden. Advanced directives: Patient's advanced directive is on file and reviewed. The patient's surrogate, is aware and agrees with the plan for INSTRUCTIONAL TECHNOLOGY COORDINATOR. Interventions: All interventions will be focused on symptom management including pain, anxiety, dyspnea, nausea/vomiting. Resuscitation status: INSTRUCTIONAL TECHNOLOGY COORDINATOR orders are in place The patient peacefully 07/08/2025 at 08:45 a.m.. I was notified by RN at 08:30 of the patient's passing. examination was performed - see details below. Patient was declared with time of at 08:45 a.m.. Additional Data Confirmation of as documented by pronouncing clinician: no pulse, no respirations, no heart sounds, pupils fixed and dilated and other (no pain response) Family: at bedside Additional persons at bedside: chronic disease manager Attending/PCP notified?: Yes Attending physician: Karol Hare MD Was code activated?: No Autopsy requested?: No roll examiner notified?: No Organ bank notified?: No Advance directives: No Hospice patient?: Yes
== END 2025-07-08 08:45 | disposition expired | DRG 951 ==
PROVIDERS: Admitting Provider Hospitalist; PCP Student in an Organized Health Care Education/Training Program; Visit Provider Hospitalist
DX: Z51.5 Encounter for palliative care (principal); A41.9 Sepsis, unspecified organism; R65.21 Severe sepsis with septic shock; C78.7 Secondary malignant neoplasm of liver and intrahepatic bile duct; C79.51 Secondary malignant neoplasm of bone; N17.9 Acute kidney failure, unspecified; I42.9 Cardiomyopathy, unspecified; C61 Malignant neoplasm of prostate; I25.10 Atherosclerotic heart disease of native coronary artery without angina pectoris; R62.7 Adult failure to thrive; K21.9 Gastro-esophageal reflux disease without esophagitis; Z79.899 Other long term (current) drug therapy
CPT/HCPCS: J2270

== ENCOUNTER → 2025-07-06 | Outpatient (BNV) | payer OTHER, SELFPAY | PROVIDERS: Admitting Provider Hospitalist; PCP Student in an Organized Health Care Education/Training Program; Visit Provider Hospitalist | DX: Z71.89 Other specified counseling (principal); Z51.5 Encounter for palliative care | CPT/HCPCS: 99232 ==